=== PATIENT | male | born 1945 | race Caucasian/White ===

== ENCOUNTER 2018-05-04 11:14 | Emergency (ER) | payer MEDICARE, SELFPAY ==
[2018-05-04 11:18] VITALS: BP 138/68; PULSE 71; RESP 17; TEMP 36.9; O2SAT 95; BMI 31.0
--- NOTE | 2018-05-04 11:29 | RAD_ITS ---
STUDY: X-RAY CHEST REASON FOR EXAM: Male, 72 years old. Pain, cough TECHNIQUE: PA and lateral chest COMPARISON: None. FINDINGS: There are patchy airspace opacities throughout the left lower lung in a pattern most consistent with pneumonia without dense focal consolidation. There is minimal right lung base atelectasis. Mid to upper lungs clear. No effusion or pneumothorax. There is hyperlucency of the lungs and flattening of hemidiaphragms suggesting underlying COPD. Correlate smoking history. Normal cardiomediastinal silhouette, carlos and pleural margins. Median sternotomy. No acute osseous or upper abdominal process. RAD/Chest PA and Lateral IMPRESSION: No acute cardiopulmonary process. Electronically Signed: Og Fernandez, at 12:14 EDT Tel , Service support ,
--- NOTE | 2018-05-04 11:29 | EKG12_ITS ---
Test Reason : Blood Pressure : / mmHG Vent. Rate : 070 BPM Atrial Rate : 070 BPM P-R Int : 172 ms QRS Dur : 098 ms QT Int : 400 ms P-R-T Axes : 056 009 012 degrees QTc Int : 432 ms Sinus rhythm with occasional Premature ventricular complexes Inferior infarct , age undetermined , cannot be excluded Poor R wave progression Abnormal ECG Confirmed by ALEE HERNANDEZ, FRANCOIS ([id number]), web content editor ALONZO MALONEY ([id number]) on 05/07/2018 9:51:13 AM Referred By: FRED Confirmed By:FRANCOIS VICKERS MD
--- NOTE | 2018-05-04 11:40 | NURSING ---
no old ekgs
[2018-05-04] MEDS: 0.9% Normal Saline 1,000 ML 150 ML IV (11:59)
[2018-05-04 12:06] LABS: Absolute Neutrophil Count 8.2 X10^3/uL (2.0-7.7); Basophil# 0.05 X10^3/uL; Basophil% 0.4 % (0-1); Eosinophil# 0.45 X10^3/uL; Eosinophils% 3.6 % (0-5); Hemoglobin 16.2 g/dl (13.0-16.5); Lymphocyte % 22.9 % (19-41); Mean Corp Hgb Conc 33.8 g/gl (32-36); Mean Corpuscular Hgb 31.1 pg (27.0-32.0); Mean Corpuscular Volume 92.1 fL (80-94); Mean Platelet Vol. 9.6 fl (6.2-12.0); Monocyte# 1.05 X10^3/uL; Monocyte% 8.3 % (0-10); Neutrophil # 8.16 X10^3/uL (2.7-7.7); Neutrophil % 64.5 % (47-70); Platelet Count 267 K/mm3 (150-450); RBC Distribution Width CV 13.4 % (11.6-14.6); Red Blood Count 5.21 M/mm3 (4.6-6.2); White Blood Count 12.7 K/mm3 (4.4-11.0)
[2018-05-04 12:08] LABS: POSITIVE COUNT NO; POSITIVE DIFFERENTIAL NO; POSITIVE MORPHOLOGY NO
[2018-05-04 12:13] LABS: Anion Gap 6 (5-15); BUN 11 mg/dL (7-18); BUN/Creat Ratio 12.9 RATIO (10-20); Calcium,Total 9.1 mg/dL (8.5-10.1); Chloride 106 mmol/L (98-107); Creatinine, Serum 0.85 mg/dL (0.70-1.30); EST Glomerular Filtration Rate 93 mL/min (>60); Est Glom Filt Rate - Afr Amer 113 mL/min (>60); Estimated Creatinine Clearance 73.76 ml/min; Glucose 95 mg/dL (74-106); Potassium 4.2 mmol/L (3.5-5.1); Sodium Level 138 mmol/L (136-145)
[2018-05-04 12:14] LABS: D-Dimer Quantitative (DVT/PE) 1.31 FEU/ug/m (0.27-0.49)
--- NOTE | 2018-05-04 12:17 | CT_ITS ---
STUDY: CTA CHEST REASON FOR EXAM: Male, 72 years old. Cough with green mucus. Chest pain, CABG, hypertension, cholecystectomy. RADIATION DOSAGE (If Supplied By Facility): CTDIvol = ( 18.03 ) mGy, DLP = ( 651.17 ) mGycm TECHNIQUE: The examination was performed with the intravenous administration of 100 ml of Isovue 370 contrast material. Post-processing of the angiographic images was performed, with multiplanar reformation and 3D reconstruction. Individualized dose optimization techniques were used for this CT. COMPARISON: Chest x-ray same date. FINDINGS: On today's chest x-ray there appear to be mild infiltrates of the left lower lung superimposed upon underlying emphysema. Supraclavicular: No mass or lymphadenopathy. Normal thyroid. Body wall soft tissues: No acute process. Osseous structures: Median sternotomy. Scoliosis, spondylosis, no acute process. Upper abdomen: Multiple simple appearing hepatic cysts, the largest in segment 4 measuring approximately 3.4 cm, incompletely characterized. No acute upper abdominal process is evident. Mediastinum: Normal esophagus. Multiple small or borderline enlarged lymph nodes are present in the mediastinum and carlos. Largest left hilar lymph node about 1.6 in meters short axis. Largest right hilar lymph node proximally 1.3 cm short axis. Subcarinal 1.2 cm. Paratracheal 1.2 cm. Chronicity uncertain. Heart: Borderline/mild cardiomegaly. No pericardial effusion. Prominent three-vessel coronary calcifications. Median sternotomy and CABG. Remnant epicardial pacer wires. Aorta: Borderline aneurysmal ectasia of the ascending aorta and proximal arch up to 3.95 cm. Mild arch atherosclerosis with widely patent three-vessel cervical arch branching. Lungs: Panlobular emphysema. Centrilobular and paraseptal features combined. There is fibrosis at the lung bases with peripheral honeycombing, associated with traction bronchiectasis. This largely calculus for the density seen on the chest x-ray in the left lung base where the degree of fibrosis is greater than on the right. However there is also a small superimposed subsegmental focus of consolidation in the left lower lobe, lateral basilar along the major fissure. This focus of consolidation measures approximately 3.6 x 2.5 cm and is most suspicious for acute pneumonia superimposed upon the extensive chronic interstitial changes. CT/CTA Chest W/WO Contrast IMPRESSION: Emphysema. 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 Subsegmental consolidation in the left lower lobe is suspicious for acute pneumonia. Electronically Signed: Og Fernandez, at 14:52 EDT Tel , Service support ,
[2018-05-04] MEDS: DiphenhydrAMINE 50 MG/ML Syringe IV (13:08)
[2018-05-04] MEDS: MethylPREDNISolone 125 MG/2 ML Vial IV (13:11)
--- NOTE | 2018-05-04 15:19 | ED.DCSUM_ITS ---
- ER Visit Summary Date of Service: 05/04/18 Chief Complaint: [Cough and left-sided chest pain] History of Present Illness: The patient is a 72 M [presents the emergency department with cough for over a week. Patient states that he is bringing up some green thick phlegm. Patient denies any fevers. Patient also complains of a sharp stabbing pain in his left chest without any radiation. Patient complains of increased fatigue. Patient has had chills and sweats. He denies recent travel or surgery. Patient does have a history of coronary artery disease, hypertension, and high cholesterol.] Physical Examination: [HEENT-PERRLA, EOMI. Cranial nerves II through XII grossly intact. TMs clear. Mucous membranes moist. No adenopathy. Cardiovascular-regular rate and rhythm without murmur or ectopy Lungs-clear to auscultation, chest wall stable without crepitus or subcu emphysema. Patient does have some tenderness over left anterior chest wall that seems to reproduce his pain. Abdomen-normoactive bowel sounds, soft, nontender, no rebound or rigidity, no peritoneal signs. Extremities-intact ?4, normal range of motion, normal pulses, atraumatic] Test Results: [EKG obtained on arrival showed a sinus rhythm with a ventricular rate of 70 bpm with occasional PVCs. CBC with differential showed a white count of 12.7, hemoglobin 16, hematocrit 48, platelets 267. Chemistries were unremarkable. Troponin was less than 0.015. D-dimer was elevated 1.31. Chest x-ray showed nothing acute. CTA of the chest showed no evidence for PE patient however was noted to have chronic interstitial lung disease as well as subsegmental consolidation in the left lower lobe suspicious for acute pneumonia.] Emergency Department Course and Treatment: [Patient was treated with Levaquin p.o. I feel he can be managed as an outpatient given that he is not hypoxic or tachypneic. ] Treatment Plan: Referral to pulmonology on-call Dr. Silva. Patient will be started on Levaquin, Tessalon Perles, and albuterol MDI.] Disposition: [Discharged home in stable condition]. Patient advised to return if increasing shortness of breath or condition should worsen in any way. Impression: [Left lower lobe pneumonia] This note was generated with [employer] (Proprietary)ation software. It may contain incorrect words, spelling, and punctuation that were not noted in review of the chart prior to signing ED Disposition - Plan for ED Patient: Chief Complaint: Cough Referrals: Tati Medina MD [Primary Care Provider] -
--- NOTE | 2018-05-04 15:19 | ED.DEP ---
ED Disposition - Plan for ED Patient: Chief Complaint: Cough Instructions: ED Pneumonia Adult Prescriptions: Benzonatate [Tessalon Perle] 200 mg PO TID PRN PRN #20 cap PRN Reason: Cough Levofloxacin [Levaquin] 750 mg PO DAILY #7 tab Referrals: Tati Medina MD [Primary Care Provider] - Adryan Silva DO [STAFF PHYSICIAN] - 3-5 Days
[2018-05-04] MEDS: levoFLOXacin 750 MG Tablet PO (15:29)
[2018-05-04 15:34] VITALS: BP 126/81; PULSE 72; PULSE 74; RESP 18
== END 2018-05-04 15:41 | disposition home or self-care (01) ==
PROVIDERS: Emergency Provider Emergency Medicine; Family Provider Family Medicine; PCP Family Medicine
DX: J18.9 Pneumonia, unspecified organism (principal); I10 Essential (primary) hypertension; E78.00 Pure hypercholesterolemia, unspecified; I25.10 Atherosclerotic heart disease of native coronary artery without angina pectoris; Z95.1 Presence of aortocoronary bypass graft
CPT/HCPCS: 71046; 71275; 80048; 84484; 85025; 85379; 93005; 96361; 96374; 96375; 99285; J7030; Q9967

== ENCOUNTER → 2018-05-18 14:27 | Outpatient (CLI) | payer MEDICARE, SELFPAY ==
[2018-05-18 14:57] LABS: Erythrocyte Sedimentation Rate 23 mm/hr (0-20)
[2018-05-18 15:20] LABS: CRP, High Sensitivity Cardiac 7.62 mg/L
[2018-05-21 03:07] LABS: Cytoplasmic Ab (C-ANCA) <1:20 titer (Neg:<1:20)
[2018-05-21 10:55] LABS: CCP IgG Antibodies > 250 units (0-19); Perinuclear Ab (P-ANCA) <1:20 titer (Neg:<1:20)
[2018-05-21 11:06] LABS: ANTINUCLEAR ANTIBODIES DIRECT Negative (Negative)
== END ==
PROVIDERS: Family Provider Family Medicine; PCP Family Medicine; Visit Provider Internal Medicine Critical Care Medicine
DX: J84.10 Pulmonary fibrosis, unspecified (principal); J44.9 Chronic obstructive pulmonary disease, unspecified; I25.10 Atherosclerotic heart disease of native coronary artery without angina pectoris
CPT/HCPCS: 36415; 85652; 86038; 86141; 86200; 86225; 86235; 86256; 86431

== ENCOUNTER → 2018-06-04 12:04 | Outpatient (CLI) | payer MEDICARE, SELFPAY ==
[2018-06-04 12:35] VITALS: PULSE 64; PULSE 71; PULSE 72; PULSE 83; PULSE 86; PULSE 87; PULSE 88; PULSE 89; O2SAT 91; O2SAT 92; O2SAT 94; O2SAT 96
--- NOTE | 2018-06-04 13:24 | PCM.PSN.6M ---
PSN 6 Minute Walk Test - 6 Minute Walk Test 6 Minute Walk Test: 6 Minute Walk Test PSN:6-Minute Walk Test Start: 06/04/18 12:35 Freq: Status: Active Protocol: [id number].6MINW Document 06/04/18 12:35 [facility] (Rec: 06/04/18 12:37 [facility] [id number]) 6 Minute Walk Test Date Performed 06/04/18 Time Performed 12:15 Height 5 ft 8 in Weight: 203 lb Weight in Pounds 203.[address]: Waldo Hein Assistive device used: None Pre-test Oxygen Delivery Method Room Air Pulse Ox (%) 96 Pulse Rate (60-100 beats/min) 64 Dyspnea Krystal Scale (0-10) 3 1st minute Oxygen Delivery Method Room Air Pulse Ox (%) 92 Pulse Rate (60-100 beats/min) 72 Dyspnea Krystal Scale (0-10) 3 2nd minute Oxygen Delivery Method Room Air Pulse Ox (%) 92 Pulse Rate (60-100 beats/min) 83 Dyspnea Krystal Scale (0-10) 3 3rd minute Oxygen Delivery Method Room Air Pulse Ox (%) 91 Pulse Rate (60-100 beats/min) 86 Dyspnea Krystal Scale (0-10) 3 4th minute Oxygen Delivery Method Room Air Pulse Ox (%) 92 Pulse Rate (60-100 beats/min) 87 Dyspnea Krystal Scale (0-10) 3 5th minute Oxygen Delivery Method Room Air Pulse Ox (%) 92 Pulse Rate (60-100 beats/min) 88 Dyspnea Krystal Scale (0-10) 3 6th minute Oxygen Delivery Method Room Air Pulse Ox (%) 92 Pulse Rate (60-100 beats/min) 89 Dyspnea Krystal Scale (0-10) 3 Post-test Oxygen Delivery Method Room Air Pulse Ox (%) 94 Pulse Rate (60-100 beats/min) 71 Dyspnea Krystal Scale (0-10) 3 Full Laps Walked 17 Partial Lap, Number of Tiles Walked 35 Total Distance Walked (ft) 1038 - Interpretation Interpretation: The patient ambulated 1038 feet over the course of 6 minutes beginning on room air without assistive devices or breaks. Pretesting oxygen saturation was noted to be 96% on room air. With ambulation, the armand oxygen saturation was 91%. This represents a significant exertional oxygen desaturation, consistent with a pulmonary limitation to exercise tolerance. - Recommendations Recommendations: There is no indication for the use of supplemental oxygen at this time. However, close interval follow-up is recommended, given the degree of oxygen desaturation noted during this study.
== END ==
PROVIDERS: Family Provider Family Medicine; PCP Family Medicine; Visit Provider Internal Medicine Critical Care Medicine
DX: J84.10 Pulmonary fibrosis, unspecified (principal); J44.9 Chronic obstructive pulmonary disease, unspecified
CPT/HCPCS: 94618

== ENCOUNTER → 2018-06-16 13:06 | Outpatient (CLI) | payer MEDICARE, SELFPAY ==
--- NOTE | 2018-06-17 10:28 | PFT ---
INTRODUCTION: The patient is a 73-year-old male that presents for pulmonary function testing secondary to a diagnosis of COPD. Respiratory therapy reports good patient effort. Bronchodilators were used during testing. INTERPRETATION: Forced expiration spirometry demonstrates the presence of a moderate large airways obstructive ventilatory defect. There was no significant response to aerosolized bronchodilators, based upon strict ATS criteria. Spirograms are of good quality and do not plateau indicating slow emptying of the lungs. Body plethysmography was performed and reveals a decreased TLC to 4.6 L, 77% of predicted, indicative of a mild restrictive ventilatory defect. The remainder of the lung volumes are symmetrically reduced. Diffusing capacity by single breath CO is mildly reduced at 62% of predicted. IMPRESSION: These pulmonary function studies demonstrate the presence of an irreversible moderate mixed ventilatory defect with a symmetric reduction in diffusing capacity. There are no previous pulmonary function studies available for comparison.
== END ==
PROVIDERS: Family Provider Family Medicine; PCP Family Medicine; Visit Provider Internal Medicine Critical Care Medicine
DX: J84.10 Pulmonary fibrosis, unspecified (principal); J44.9 Chronic obstructive pulmonary disease, unspecified
CPT/HCPCS: 94060; 94726; 94729

== ENCOUNTER → 2018-08-20 13:38 | Outpatient (CLI) | payer MEDICARE, SELFPAY ==
--- NOTE | 2018-08-20 13:59 | RAD_ITS ---
STUDY: X-RAY CHEST REASON FOR EXAM: Male, 73 years old. Cough and fever. TECHNIQUE: PA and lateral views of the chest. COMPARISON: CT of the chest dated May 04, 2018. FINDINGS: Patient has had a sternotomy. There is hyperinflation of the lungs consistent with chronic obstructive lung disease (COPD). There is mixed interstitial and airspace opacities at the lung bases primarily. There may be more diffuse interstitial thickening in both lungs as well. There is no demonstrated pleural abnormality. There is borderline cardiomegaly. Normal mediastinum and carlos. Normal visualized pulmonary arteries. There is atherosclerotic calcification of the aortic arch with tortuosity. There is demineralization of the osseous structures. Normal visualized ribs, clavicles, and shoulders. There is no demonstrated abnormality of the visualized soft tissue structures of the upper abdomen. RAD/Chest PA and Lateral IMPRESSION: Patchy bilateral basilar interstitial and air space opacities presumably representing acute pneumonia. There is probable sequela of pulmonary fibrosis as well. Electronically Signed: Carmencita Barron MD at 5:38 EST , Service support ,
[2018-08-20 16:00] LABS: Absolute Lymphocyte Count 2.01 X10^3/ul (0.83-4.51); Absolute Neutrophil Count 13.3 X10^3/uL (2.0-7.7); Basophil# 0.08 X10^3/uL; Basophil% 0.5 % (0-1); Eosinophil# 0.28 X10^3/uL; Eosinophils% 1.6 % (0-5); Hematocrit 43.7 % (40-54); Hemoglobin 14.7 g/dl (13.0-16.5); Lymphocyte # 2.01 X10^3/ul (4.0); Lymphocyte % 11.6 % (19-41); Mean Corp Hgb Conc 33.6 g/gl (32-36); Mean Corpuscular Hgb 30.7 pg (27.0-32.0); Mean Corpuscular Volume 91.2 fL (80-94); Mean Platelet Vol. 10.4 fl (6.2-12.0); Monocyte# 1.53 X10^3/uL; Monocyte% 8.9 % (0-10); Neutrophil # 13.29 X10^3/uL (2.7-7.7); Neutrophil % 76.9 % (47-70); POSITIVE COUNT NO; POSITIVE DIFFERENTIAL YES; POSITIVE MORPHOLOGY NO; Platelet Count 410 K/mm3 (150-450); RBC Distribution Width CV 13.4 % (11.6-14.6); RBC Distribution Width SD 44.2 fl (35.1-43.9); Red Blood Count 4.79 M/mm3 (4.6-6.2); White Blood Count 17.3 K/mm3 (4.4-11.0)
[2018-08-20 16:01] LABS: Differential Indicated SCAN CRITERIA MET
[2018-08-20 16:28] LABS: Differential Comment SCANNED
[2018-08-20 16:48] LABS: Thyroid Stim Hormone (TSH) 2.05 uIU/mL (0.358-3.74)
== END ==
PROVIDERS: Family Provider Family Medicine; PCP Family Medicine; Referring Provider Family Medicine; Visit Provider Family Medicine
DX: R05 Cough (principal); R68.89 Other general symptoms and signs
CPT/HCPCS: 36415; 71046; 84443; 85025

== ENCOUNTER 2018-08-24 01:07 | Inpatient (IN) | payer MEDICARE, SELFPAY ==
[2018-08-24] VITALS (33 sets, daily range): BP systolic 105–138; BP diastolic 55–74; PULSE 80–110; RESP 12–32; TEMP 36.8–38.5; O2SAT 84–100; BMI 29.7; BMI 28.9
--- NOTE | 2018-08-24 01:19 | RAD_ITS ---
STUDY: X-RAY CHEST REASON FOR EXAM: Male, 73 years old. Shortness breath, cough and fever. TECHNIQUE: Single AP portable view of the chest. COMPARISON: August 20, [address] of the chest dated May 04, 2018.. FINDINGS: Patient has had a sternotomy. Cardiac monitoring leads are present. The lungs are expanded. There is heterogeneous airspace consolidation throughout the right lung and at the left lung base. There is reticulonodular interstitial thickening present in both lungs apparently related to known pulmonary fibrosis. There is no demonstrated pleural abnormality. There is borderline cardiomegaly. Normal mediastinum and carlos. There is prominence of the pulmonary hilar arteries without peripheral pulmonary vascular congestion. There is atherosclerotic calcification of the aortic arch with tortuosity. Normal visualized thoracic spine. Normal visualized ribs, clavicles, and shoulders. There is no demonstrated abnormality of the visualized soft tissue structures of the upper abdomen. RAD/Chest 1 View (Portable) IMPRESSION: Increasing right-sided airspace consolidation and left-sided airspace consolidation since previous study consistent with pneumonia. Electronically Signed: Carmencita Barron MD at 2:01 EST , Service support ,
--- NOTE | 2018-08-24 01:19 | EKG12_ITS ---
Test Reason : SOB Blood Pressure : / mmHG Vent. Rate : 108 BPM Atrial Rate : 108 BPM P-R Int : 152 ms QRS Dur : 094 ms QT Int : 344 ms P-R-T Axes : 048 016 -01 degrees QTc Int : 460 ms Sinus tachycardia with frequent Premature ventricular complexes Possible Left atrial enlargement Inferior infarct , age undetermined Abnormal ECG Confirmed by VINCENZO HERNANDEZ, MARIA DEL CARMEN ([id number]), associate entertainment editor ALONZO MALONEY ([id number]) on 08/26/2018 1:10:08 PM Referred By: Tati Medina Confirmed By:MARIA DEL CARMEN LOYA MD
[2018-08-24] MEDS: Ipratropium/Albuterol Sulfate 3 ML AMPUL.NEB INHALATION ×6 (01:32→23:30)
[2018-08-24] MEDS: 0.9% Normal Saline 1,000 ML 150 ML IV (01:33)
--- NOTE | 2018-08-24 01:34 | ED.VISSUMM ---
- ER Visit Summary Date of Service: 08/24/18 Chief Complaint: Shortness of breath, cough History of Present Illness: The patient is a 73 M progressive shortness of breath since April. Reports productive sputum, subjective fever, chills, sweats. History of COPD with no home oxygen. History of CA, CABG x3 in the past. States has chest discomfort with cough. No similar symptoms of CA. States saw his flow machine operator Angel Luis back in June. States there was abnormalities that referred him Dr. Sol. Workup is in process. Family states a positive M protein. No confirmed diagnosis at this time. However family states had multiple x-rays of his bones. Remote tobacco 20 years ago. Pulmonary fibrosis history. PCP placed him on a Z-Fredo 3 days ago, no improvement of symptoms. No nausea or vomiting or diarrhea. No urinary symptoms. Family states he is wheezing. Symptoms do help with aerosol treatments. Family states he has not had a CT scan of his chest. However, records note he did have a CT of the chest in April noting nodules in pneumonia at that time along with findings of his pulmonary fibrosis with bronchiolectasis. Reports did have an outpatient x-ray 3 days ago and reporting chronic changes. Physical Examination: General: Alert and oriented ?3, no acute distress HEENT: Normocephalic, atraumatic. Moist mucosa membranes Neck: supple, nontender. Cardiovascular: Regular tachycardic rate and rhythm, no murmurs Respiratory: Expiratory wheezing throughout, no accessory muscle use. Abdomen: Soft, nontender, nondistended Extremities: Nontender, no edema, pulses intact ?4 Neuro: no focal neurological deficits. Test Results: Sinus tachycardia rate of 108, no ST or T wave changes. PVCs noted. White count 17.6. Lactic acid 1.5. trop: negative. Chest x-ray: progressive pneumonia Emergency Department Course and Treatment: Patient expiratory wheezing, slight tachypnea, tachycardia, 84% on room air. Placed on oxygen, aerosol treatments were given. On oxygen his O2 is improved. Sepsis protocol initiated. Review patient's workup on the , noted chest x-ray reporting bibasilar infiltrates. And a white count of 17. He was started on Levaquin IV due to failing outpatient therapy. Repeat white count 17.6, lactate is 1.5. Reevaluation wheezing improving. O2 stable, blood pressure stable. Review of x-ray does have concerns of pneumonia. Will discuss with hospitalist for admission. Treatment Plan: [] Disposition: Admission Impression: 1. [facility] pneumonia 2. COPD exacerbation 3. Hypoxemia This note was generated with [employer] dictation software. It may contain incorrect words, spelling, and punctuation that were not noted in review of the chart prior to signing ED Disposition - Plan for ED Patient: Disposition: Acute Care Hospital [facility] Chief Complaint: Shortness of Breath Diagnosis: COPD (chronic obstructive pulmonary disease), Community acquired pneumonia, Hypoxemia Referrals: Tati Medina MD [Primary Care Provider] -
[2018-08-24 01:36] LABS: International Normalized Ratio 1.2
[2018-08-24 01:37] LABS: Absolute Lymphocyte Count 1.64 X10^3/ul (0.83-4.51); Absolute Neutrophil Count 14.4 X10^3/uL (2.0-7.7); Basophil# 0.08 X10^3/uL; Basophil% 0.5 % (0-1); Eosinophil# 0.15 X10^3/uL; Eosinophils% 0.9 % (0-5); Hematocrit 44.3 % (40-54); Hemoglobin 15.2 g/dl (13.0-16.5); Lymphocyte # 1.64 X10^3/ul (4.0); Lymphocyte % 9.3 % (19-41); Mean Corp Hgb Conc 34.3 g/gl (32-36); Mean Corpuscular Hgb 30.5 pg (27.0-32.0); Mean Corpuscular Volume 88.8 fL (80-94); Mean Platelet Vol. 9.6 fl (6.2-12.0); Monocyte# 1.18 X10^3/uL; Monocyte% 6.7 % (0-10); Neutrophil # 14.41 X10^3/uL (2.7-7.7); Neutrophil % 81.8 % (47-70); Platelet Count 469 K/mm3 (150-450); RBC Distribution Width CV 13.5 % (11.6-14.6); RBC Distribution Width SD 43.6 fl (35.1-43.9); Red Blood Count 4.99 M/mm3 (4.6-6.2); White Blood Count 17.6 K/mm3 (4.4-11.0)
--- NOTE | 2018-08-24 01:37 | ED.DCSUM_ITS ---
- ER Visit Summary Date of Service: 08/24/18 Chief Complaint: Shortness of breath, cough History of Present Illness: The patient is a 73 M progressive shortness of breath since April. Reports productive sputum, subjective fever, chills, sweats. History of COPD with no home oxygen. History of AL, CABG x3 in the past. States has chest discomfort with cough. No similar symptoms of AL. States saw his clinic supervisor Angel Luis back in June. States there was abnormalities that referred him Dr. Sol. Workup is in process. Family states a positive M protein. No confirmed diagnosis at this time. However family states had multiple x-rays of his bones. Remote tobacco 20 years ago. Pulmonary fibrosis history. PCP placed him on a Z-Fredo 3 days ago, no improvement of symptoms. No nausea or vomiting or diarrhea. No urinary symptoms. Family states he is wheezing. Symptoms do help with aerosol treatments. Family states he has not had a CT scan of his chest. However, records note he did have a CT of the chest in April noting nodules in pneumonia at that time along with findings of his pulmonary fibrosis with bronchiolectasis. Reports did have an outpatient x-ray 3 days ago and reporting chronic changes. Physical Examination: General: Alert and oriented ?3, no acute distress HEENT: Normocephalic, atraumatic. Moist mucosa membranes Neck: supple, nontender. Cardiovascular: Regular tachycardic rate and rhythm, no murmurs Respiratory: Expiratory wheezing throughout, no accessory muscle use. Abdomen: Soft, nontender, nondistended Extremities: Nontender, no edema, pulses intact ?4 Neuro: no focal neurological deficits. Test Results: Sinus tachycardia rate of 108, no ST or T wave changes. PVCs noted. White count 17.6. Lactic acid 1.5. trop: negative. Chest x-ray: progressive pneumonia Emergency Department Course and Treatment: Patient expiratory wheezing, slight tachypnea, tachycardia, 84% on room air. Placed on oxygen, aerosol treatments were given. On oxygen his O2 is improved. Sepsis protocol initiated. Review patient's workup on the , noted chest x-ray reporting bibasilar infiltrates. And a white count of 17. He was started on Levaquin IV due to failing outpatient therapy. Repeat white count 17.6, lactate is 1.5. Reevaluation wheezing improving. O2 stable, blood pressure stable. Review of x-ray does have concerns of pneumonia. Will discuss with hospitalist for admission. Treatment Plan: [] Disposition: Admission Impression: 1. [facility] pneumonia 2. COPD exacerbation 3. Hypoxemia This note was generated with [employer] dictation software. It may contain incorrect words, spelling, and punctuation that were not noted in review of the chart prior to signing ED Disposition - Plan for ED Patient: Disposition: Acute Care Hospital [facility] Chief Complaint: Shortness of Breath Diagnosis: COPD (chronic obstructive pulmonary disease), Community acquired pneumonia, Hypoxemia Referrals: Tati Medina MD [Primary Care Provider] -
[2018-08-24 01:44] LABS: POSITIVE COUNT NO; POSITIVE DIFFERENTIAL NO; POSITIVE MORPHOLOGY NO
[2018-08-24 01:48] LABS: Lactic Acid 1.5 mmol/L (0.4-2.0)
[2018-08-24 01:50] LABS: ALB/GLOB Ratio 0.5 RATIO (0.9-2.4); AST(SGOT) 27 U/L (15-37); Alanine Aminotransfer ALT/SGPT 27 U/L (16-61); Albumin, Serum 2.7 g/dL (3.2-5.0); Alkaline Phosphatase 92 U/L (45-117); Anion Gap 9 (5-15); BUN 9 mg/dL (7-18); BUN/Creat Ratio 10.4 RATIO (10-20); Calcium,Total 8.3 mg/dL (8.5-10.1); Chloride 100 mmol/L (98-107); Creatinine, Serum 0.86 mg/dL (0.70-1.30); EST Glomerular Filtration Rate 92 mL/min (>60); Est Glom Filt Rate - Afr Amer 111 mL/min (>60); Estimated Creatinine Clearance 74.22 ml/min; Globulin 5.4 g/dL (2.2-4.2); Glucose 118 mg/dL (74-106); Potassium 3.9 mmol/L (3.5-5.1); Protein, Total 8.1 g/dL (6.4-8.2); Sodium Level 132 mmol/L (136-145)
--- NOTE | 2018-08-24 01:51 | HP.PCM_ITS ---
Problem List (1) Community acquired pneumonia Status: Acute (2) COPD (chronic obstructive pulmonary disease) Status: Chronic Qualifiers: COPD type: emphysema Emphysema type: centrilobular Qualified Code(s): J43.2 - Centrilobular emphysema History of Present Illness Date of Admission: 08/24/18 Chief Complaint: shortness of breath The patient is a 73 year old M with a significant history of former tobacco abuse; CAD status post CABG; hypertension;HLD; COPD without home oxygen use who presented with progressively worsening shortness of breath that started about a week ago. Associated with his symptoms is productive cough of phlegm, yellowish and greenish sputum. His shortness of breath is the same at rest and with walk ing. Furthermore he has wheezes. Patient reports a temperature of 101 Fahrenheit while at home. He tried home inhalers without any real relief. The emergency department X-ray showed bilateral airspace disease. Emergency department doctor heard wheezing on examination. Patient was found to have elevated white count of 17.6. His white count on 08/20/2018 was 17.3. Patient was started on IV Levaquin. Reportedly, 4 days ago patient was started on outpatient Z-Fredo. Patient has 1 more dose of Z-Fredo left. However his symptoms continue to worsen on Z-Fredo. Emergency department doctor reported that patient respiratory rate was 30 and his oxygen percentage saturation was 84 on room air. Also he had tachycardia. Patient reports a complicated history of shortness of breath that started in Ju ly of this year. At that time he was diagnosed with pulmonary fibrosis and pneumonia. He saw his PCP who referred to Dr. Hein, field crop harvest contractor. Patient was was then referred to acid plant helper. Patient was then referred with Dr. Sol, oncologist. 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 Per patient he did a 24-hour urine studies. Patient reports that he did a bone scan. Patient reports being diagnosed with rheumatoid arthritis. Previous CT showed mediastinal lymphadenopathy. Past Medical History Past Medical History (Chronic Problems): Chronic Problems (Last Reviewed 08/24/18 @ 03:05 by Andrés Mane MD) History of OH (myocardial infarction) (Chronic) CAD (coronary artery disease) (Chronic) Pulmonary fibrosis (Chronic) COPD (chronic obstructive pulmonary disease) (Chronic) Medical History: Medical History (Last Reviewed 08/24/18 @ 03:05 by Andrés Mane MD) History of OH (myocardial infarction) (Chronic) I25.2 CAD (coronary artery disease) (Chronic) I25.10 Pulmonary fibrosis (Chronic) J84.10 COPD (chronic obstructive pulmonary disease) (Chronic) J44.9 Allergies amoxicillin [From Augmentin] Allergy (Verified 08/24/18 01:11) Other I GET SWEATY AND CRAZY. clavulanic acid [From Augmentin] Allergy (Verified 08/24/18 01:11) Other I GET SWEATY AND CRAZY. hydrocodone Allergy (Verified 08/24/18 01:11) Other I GET SWEATY AND CRAZY. Iodinated Contrast- Oral and IV Dye [DYEE] Allergy (Verified 08/24/18 01:11) Angioedema naproxen Allergy (Verified 08/24/18 01:11) Other I GET SWEATY AND CRAZY. prednisone Allergy (Verified 08/24/18 01:11) Other I GET SWEATY AND CRAZY. Home Medications: Ambulatory Orders Medication Instructions Recorded Amlodipine [Norvasc] 10 mg PO DAILY 05/04/18 Aspirin E.C. [Ecotrin] 81 mg PO DAILY@0800 05/04/18 Benzonatate [Tessalon Perle] 200 mg PO TID PRN PRN #20 cap 05/04/18 Cholecalciferol (Vitamin D3) 5,000 unit PO DAILY 05/04/18 [Vitamin D3] Hydroxyzine Pamoate 25 mg PO QHS PRN 05/04/18 L.acidoph,Paracasei, B.lactis 10 tab PO DAILY 05/04/18 [Probiotic] Metoprolol Tartrate 25 mg PO BID 05/04/18 Multivitamin [Daily Multiple 1 ea PO DAILY 05/04/18 Vitamin] Omeprazole 20 mg PO DAILY 05/04/18 fluticasone 100 mcg-vilanterol 25 1 inh INHALATION Q24H #60 ea 07/27/18 mcg/dose powder for inhalation albuterol sulfate HFA 90 2 puff INHALATION Q4H PRN #8.5 g 08/17/18 mcg/actuation aerosol inhaler budesonide-formoterol HFA 160 2 puff INHALATION BID #1 ea 08/17/18 mcg-4.5 mcg/actuation aerosol inhaler Surgical History: Surgical History (Last Reviewed 08/24/18 @ 03:05 by Andrés Mane MD) History of bilateral cataract extraction (Resolved) Z98.41, Z98.42 Status post trigger finger release (Resolved) Z98.890 History of cholecystectomy (Resolved) Z90.49 History of bilateral carpal tunnel release (Resolved) Z98.890 History of prostatectomy (Resolved) Z90.79 History of coronary artery bypass graft x 3 (Resolved) Z95.1 History of colonoscopy (Resolved) Z98.890 Lives: Spouse/ Significant Other Smoking Status: Former smoker Alcohol: Occasional - *Family History Maternal Family History: Family History (Last Reviewed 08/24/18 @ 03:06 by Andrés Mane MD) Father Myocardial infarction Mother Myocardial infarction Brother Lung cancer Daughter Colostomy in place Asthma Kidney disease Son Aneurysm Paternal Family History: Family History (Last Reviewed 08/24/18 @ 03:06 by Andrés Mane MD) Father Myocardial infarction Mother Myocardial infarction Brother Lung cancer Daughter Colostomy in place Asthma Kidney disease Son Aneurysm Review of Systems Constitutional: Reports: Fever. Denies: Chills, Weight Change HEENT: Denies: Head Aches, Sinus Congestion, Sinus Drainage Cardiovascular: Denies: Chest Pain, Palpitations Respiratory: Reports: Cough, Shortness of Breath, Shortness of breath at rest, Shortness of breath upon exertion, Sputum production Gastrointestinal: Denies: Abdominal Pain, Nausea, Vomiting Genitourinary: Denies: Dysuria Musculoskeletal: Denies: Joint Pain, Joint Tenderness Skin: Denies: Rash, Wounds Neurological: Denies: Numbness, Tingling, Focal weakness Psychiatric: Denies: Anxiety, Depression, Homicidal Ideations, Suicidal Ideations Hematologic/ Lymphatic: Denies: Easy Bruising, Easy Bleeding VTE Information - Inpt Only VTE Present on Admission: No VTE Mechan Device Prophylaxis: None VTE Pharm Prophylaxis ordered?: Yes Patient Problems: Active and Suspected Problems (Last Reviewed 08/24/18 @ 03:05 by Andrés Mane MD) Community acquired pneumonia (Acute) Hypoxemia (Acute) - Physical Exam General: Alert, Oriented x3, Cooperative HEENT: Atraumatic, PERRLA, EOMI, Normocephalic Neck: Supple, No JVD, Negative Carotid Bruits Lungs: Normal air movement, Rales - Mid to lower lung gallego bilateral, Tachypneic Cardiovascular: No murmurs, Tachycardic Abdomen: Bowel Sounds Present, Soft, Non Tender Extremities: No edema, Capillary Refill Less than 3 Seconds Skin: No rashes, No breakdown Musculoskeletal: No Tenderness to Palpation of Joints or Extremities Neurological: Neuro grossly intact Psych/Mental Status: Normal Affect, Appropriate Vital Signs Temp Pulse Resp BP Pulse Ox 99.5 F H 101 H 16 138/73 H 93 08/24/18 01:08 08/24/18 01:31 08/24/18 01:31 08/24/18 01:08 08/24/18 01:31 Oxygen Flow Rate (L/min) 3 Oxygen Delivery Method Nasal Cannula Weight: 91.5 kg Body Mass Index (BMI) 29.7 Laboratory Tests Past 24 Hrs 08/24/18 08/24/18 08/24/18 01:16 01:16 01:16 WBC 17.6 H RBC 4.99 Hgb 15.2 Hct 44.3 MCV 88.8 MCH 30.5 MCHC 34.3 RDW 13.5 RDW Differential 43.6 Plt Count 469 H MPV 9.6 Immature Gran % (Auto) 0.800 Neut % (Auto) 81.8 H Lymph % (Auto) 9.3 L Pitt % (Auto) 6.7 Eos % (Auto) 0.9 Baso % (Auto) 0.5 Absolute Neuts (auto) 14.4 H Absolute Lymphs (auto) 1.64 Total Counted Not Reportable PT 15.0 H INR 1.2 APTT 32.0 Sodium 132 L Potassium 3.9 Chloride 100 Carbon Dioxide 23.0 Anion Gap 9 BUN 9 Creatinine 0.86 Estim Creat Clear Calc 74.22 Est GFR (MDRD) Af Amer 111 Est GFR (MDRD) Non-Af 92 BUN/Creatinine Ratio 10.4 Glucose 118 H Lactic Acid Calcium 8.3 L Total Bilirubin 1.00 AST 27 ALT 27 Alkaline Phosphatase 92 Troponin I < 0.015 Total Protein 8.1 Albumin 2.7 L Globulin 5.4 H Albumin/Globulin Ratio 0.5 L 08/24/18 01:16 WBC RBC Hgb Hct MCV MCH MCHC RDW RDW Differential Plt Count MPV Immature Gran % (Auto) Neut % (Auto) Lymph % (Auto) Pitt % (Auto) Eos % (Auto) Baso % (Auto) Absolute Neuts (auto) Absolute Lymphs (auto) Total Counted PT INR APTT Sodium Potassium Chloride Carbon Dioxide Anion Gap BUN Creatinine Estim Creat Clear Calc Est GFR (MDRD) Af Amer Est GFR (MDRD) Non-Af BUN/Creatinine Ratio Glucose Lactic Acid 1.5 Calcium Total Bilirubin AST ALT Alkaline Phosphatase Troponin I Total Protein Albumin Globulin Albumin/Globulin Ratio Assessment/Plan All Active Problems (Last Reviewed 08/24/18 @ 03:05 by Andrés Mane MD) Community acquired pneumonia (Acute) Hypoxemia (Acute) History of bilateral cataract extraction (Resolved) Status post trigger finger release (Resolved) History of cholecystectomy (Resolved) History of bilateral carpal tunnel release (Resolved) History of prostatectomy (Resolved) History of coronary artery bypass graft x 3 (Resolved) History of colonoscopy (Resolved) The patient is a 73 year old M with a significant history of former tobacco abuse; CAD status post CABG; hypertension;HLD; COPD without home oxygen use who presented with progressively worsening shortness of breath that started in April of this year and further worsened in the past week. Acute hypoxemic respiratory failure. Independent review of chest x-ray confirmed increasing right-sided airspace disease and left-sided airspace disease. This could represent fluid infiltrate superimposed on baseline of pulmonary fibrosis. Review of a field crop harvest contractor notes on 07/27/2018 showed the patient has mixed ventilatory defects noted on pulmonary function testing. Review of records shows that CTA on 05/04/2018 depicted pulmonary fibrosis with components of peripheral honeycombing and traction bronchiectasis in a pattern suggesting UIP. At that time CTA also showed Subsegmental consolidation in the left lower lobe suspicious for acute pneumonia. Further patient had multiple mediastinal lymph adenopathy. Upon this admission, CURB 65 is 2. Multifactorial from bilateral pneumonia and COPD. Received Levaquin at the emergency department. Levaquin continued. Because of patient's history of COPD and a long course of pulmonary disease, steroid was discussed with patient. However patient stated that he goes crazy and has diaphoresis with steroid use. DuoNeb scheduled ordered. Albuterol as needed ordered. Inhaled corticosteroid continued. Incentives parameter and chest physiotherapy ordered. Strep pneumonia antigen and Legionella urine antigen ordered. Mycoplasma antibody ordered. Blood cultures and sputum cultures were ordered in the emergency department. Results are pending. Consider discussing case with Dr. Hein, field crop harvest contractor since patient is known to Dr. Hein. Placed on monitoring engineer because of tachycardia. Mucinex ordered. Home as needed Teson Samueles continued. M protein disease Patient reports that he had a scheduled appointment on 08/24/[address] Sol Patient to follow up outpatient. Hypertension At admission blood pressure was not within goal. Continue home metoprolol and amlodipine. Trend blood pressures and adjust blood pressure medication as necessary. CAD status post CABG Aspirin continued Metoprolol continued. GERD PPI continued DVT prophylaxis subcutaneous Lovenox ordered Code Visit Inpatient E&M: 97917 Init Hosp L3
[2018-08-24] MEDS: levoFLOXacin IV 750 MG/150 ML BAG 100 MG IV ×2 (02:05→21:17)
[2018-08-24 03:38] LABS: Bacteria 0 SEEN /hpf (None Seen); Mucous, Urine 0 SEEN /hpf (<or=2+); Squamous Epithelial Cells - UA 0 SEEN /hpf (0-5); White Blood Cells 0 SEEN /hpf (0-5)
[2018-08-24 03:40] LABS: Color, Urine Yellow (Yellow); Glucose, Dipstick Normal (Normal); Ketone-Dipstick Negative (Negative); Leukocyte Esterase-Dipstick Negative /ul (Negative); Nitrite-Dipstick Negative (Negative); Occult Blood-Urine 10 /ul (Negative); Protein-Dipstick 15 mg/dl (Negative); Urine Bilirubin Dipstick Negative (Negative); Urine Clarity Sl. Cloudy (Clear); Urine Urobilinogen Normal (Normal)
[2018-08-24] MEDS: Albuterol 2.5 MG/3 ML VIAL.NEB. INHALATION (04:02)
[2018-08-24 04:39] LABS: Red Blood Cells-Urine 0-5 SEEN /hpf (0-5)
[2018-08-24] MEDS: Budesonide Respules 0.5 MG/2 ML AMPUL.NEB. INHALATION ×2 (06:43→19:10)
[2018-08-24] MEDS: Aspirin E.C. 81 MG Tablet PO (08:50)
[2018-08-24] MEDS: Multivitamins,Therapeutic Tablet 1 TABLET PO (08:50)
[2018-08-24] MEDS: Metoprolol Tartrate 25 MG Tablet PO ×2 (08:51→21:16)
[2018-08-24] MEDS: Enoxaparin 40 MG/0.4 ML Syringe SC (08:51)
[2018-08-24] MEDS: guaiFENesin 1,200 MG Tablet 1200 MG PO ×2 (08:51→21:17)
[2018-08-24] MEDS: Pantoprazole Sodium 20 MG Tablet PO (08:52)
[2018-08-24] MEDS: amLODIPine 10 MG Tablet PO (08:52)
--- NOTE | 2018-08-24 09:56 | PCM.HOSP.N ---
Hospitalist Note The patient was admitted early childhood lead teacher today. Seen and examined. Talked to the patient and his daughter at the bedside. Patient further said shortness of breath never got better since April 2018 when he had pneumonia. Patient follows Dr. Hein as an outpatient. He was found to have mixed ventilatory defect on PFT. Previous chest CT shows emphysematous changes with lung fibrosis and traction bronchiectasis. Patient saw a interceptor operator for positive RF and anti-CCP antibody and was referred to Dr. Sol for positive M protein. Dr. Sol ordered blood work which patient is not aware of the results. Patient had tachycardia, tachypnea and hypoxia at the time of admission which is getting slight better but is still on 6 L of oxygen. This was discussed with dry plasterer helper Dr. Silva. He ordered HRCT chest. in ED, chest x-ray shows bilateral airspace consolidation consistent with pneumonia. Started on IV Levaquin. On bronchodilator. Urinary antigens are negative. Sputum culture pending. Blood cultures are pending.
--- NOTE | 2018-08-24 10:29 | CASEMGMT ---
KEYONNA VENEGAS assessment: Face to Face with pt for initial transition planning/care coordination assessment. KEYONNA VENEGAS introduced self and role at [facility], pt voices understanding and consents to assessment at this time. Pt is sitting up in bed in no distress at this time. Pt is A/O x4 at this time and answers all questions appropriately at this time. Pt's and daughter are at bedside during assessment. Care providers, pharmacy, and demographics verified at this time/updated at this time. PCP: Tati Medina Specialists: Angel Luis pulwilfrid; Ebenezer, onc; Suma, rheuma; Gina, cardio Preferred Pharmacy: [facility] [place] Insurance: AeR Prescription Benefit: AeR Living Will/HPOA: Pt states had LW/HPOA and states , Raquel Briceno, is HPOA. Pt aware that they are not no file at [facility] at this time. LNOK: Raquel Briceno, ; Mima Andrews, daughter Living Arrangements: Pt states lives with in bi-level home and states has had some recent difficulty with stairs at times. Pt states no concerns at home at this time. Transportation: Pt states drives self and states no transportation concerns at this time. DME/HHC: Pt states has a walker and tub bench, but does not use the walker currently. Pt states has had HHC in the past but unsure of which company and states no SNF in the past. Pt states would possibly like [facility] if home oxygen required at discharge as gets her DM supplies through them. This RN RUBI checked on [facility] website and they do not supply home oxygen, only cpap/bipap. Pt/ updated at this time, voice understanding. CM to follow for home oxygen need. Pt states no concerns with going home at time of discharge. Pt states is retired. Pt states does not smoke and rarely drinks ETOH. Pt states no further concerns/needs at this time. CM to follow for any further discharge planning/needs. Advised pt to ask for CM if any further questions/concerns/needs arise, voices understanding. Plan: [place] KEYONNA VENEGAS
--- NOTE | 2018-08-24 11:20 | CT_ITS ---
STUDY: CT CHEST WITHOUT CONTRAST REASON FOR EXAM: Male, 73 years old. History of bilateral pneumonia. RADIATION DOSAGE (If Supplied By Facility): CTDIvol = ( 19.49 ) mGy, DLP = ( 727.83 ) mGycm TECHNIQUE: Transaxial imaging was performed without the administration of intravenous contrast material. Multiplanar coronal and sagittal images were reformatted. Individualized dose optimization techniques were used for this CT. COMPARISON: Comparison is made with prior CT scan of thorax dated May 04, 2018 and prior chest radiograph done earlier in the day. FINDINGS: Bilateral axillary lymph nodes. The largest on the left side measures 2 cm. The largest on the right side measures 1.2 cm. There is evidence of groundglass appearance in the right upper lobe as well as in the right middle lobe and right lower lobe. There is evidence of interstitial scarring with bronchiectasis and multiple small cystic changes in the right hemithorax suggestive of a chronic interstitial pulmonary fibrosis. This has progressed as compared to prior study. There is also evidence of increased initial markings there is a complex and cystic changes in the left upper lobe as well as in the left lower lobe although this is to a lesser extent as compared to the left side. This is suggestive of progressive chronic interstitial fibrosis and end-stage lung. There is no demonstrated pleural abnormality. There are calcifications of the coronary arteries. There are multiple small lymph nodes within the mediastinum, which are normal in size and morphology most compatible with reactive lymph hyperplasia. Normal hilar regions. Normal unenhanced pulmonary arteries. There is atherosclerotic calcification of the aortic arch with tortuosity and elongation of the aortic arch and descending thoracic aorta. There are multi-level degenerative changes of the thoracic spine. Stable appearance of the hepatic cysts. CT/Chest without Contrast IMPRESSION: Changes compatible with a progressive pulmonary fibrosis with evidence of honeycombing and bronchiectasis. This is worse in the right hemithorax. Enlarged bilateral axillary lymph nodes. Electronically Signed: Joseph Sheriff MD at 12:53 EST Tel [phone], Service support ,
--- NOTE | 2018-08-24 11:21 | ECHOD_ITS ---
Reason For Study: DYSPNEA, SOB Procedure This was a 2D Doppler, Color Flow transthoracic echocardiogram. The study was technically difficult. Due to arrhythmia and patient's discomfort (fever/chills/dyspnea/SOB). Exam performed portable in patient room. Left Ventricle Normal LV size. Left ventricular systolic function is normal. The estimated ejection fraction is 60 %. Stage 1 diastolic dysfunction. No regional wall motion abnormalities noted. Right Ventricle Normal RV size. Normal systolic function. Atria The left atrium is mildly enlarged. Normal right atrium. Mitral Valve The mitral valve is structurally normal. No prolapse or stenosis seen. Tricuspid Valve Normal tricuspid valve. Mild to moderate (1-2+) tricuspid valve insufficiency. Pulmonary artery systolic pressure is 44 mmHg. Aortic Valve The aortic valve is not well visualized. Pulmonic Valve Normal pulmonic valve. Great Vessels Mildly dilated aortic root. The pulmonary artery is normal size. Normal inferior vena cava. Pericardium/Pleural No pericardial effusion. MMode/2D Measurements & Calculations LVIDd: 4.5 cm IVSd: 1.0 cm Ao root diam: 3.2 cm LVIDs: 2.8 cm LVPWd: 1.0 cm RVDd: 3.2 cm FS: 36.6 % LAV(MOD-bp): 76.0 ml LA A4 area: 23.1 cm2 LA dimension(2D): 4.4 cm LAV(MOD-bp) Indexed: 37.2 ml/m2 LAV(MOD-sp2): 74.2 ml LAV(MOD-sp4): 74.2 ml RA A4 area: 14.7 cm2 Time Measurements MV dec time: 0.15 sec Doppler Measurements & Calculations MV E max elie: 80.9 cm/sec Lat Peak E' Elie: 9.6 cm/sec Med Peak E' Elie: 9.3 cm/sec MV A max elie: 93.2 cm/sec E/E' lat: 8.5 E/E' med: 8.7 MV E/A: 0.87 Ao V2 max: 175.4 cm/sec LV V1 max: 105.7 cm/sec PA V2 max: 100.8 cm/sec Ao max P.3 mmHg LV V1 max P.5 mmHg TR max elie: 317.0 cm/sec TR max P.4 mmHg Interpretation Summary Normal LV size. Left ventricular systolic function is normal. The estimated ejection fraction is 60 %. Stage 1 diastolic dysfunction. Pulmonary artery systolic pressure is 44 mmHg. No cardiac source of emboli noted. There is no evidence of a mass or vegetation. This does not rule out endocarditis. Ordering Physician: Adryan Silva D.O. Referring Physician: Tati Medina Performed By: Nayeli Borja RDCS, RVT
--- NOTE | 2018-08-24 12:15 | PCM.CONS.GEN ---
Reason for Consult Date of Consultation: 08/24/18 Reason for Consultation: Pulmonary fibrosis History of Present Illness: The patient is a 73-year-old male, with a history as outlined below, who presented to the emergency department on August 24 with complaints of shortness of breath and productive cough. The patient has a history of an underlying irreversible moderate mixed ventilatory defect, for which he follows with Dr. Hein on an outpatient basis. The patient was last seen in the pulmonary medicine clinic on July 27, 2018, at which time, he was started on Breo. Previous chest CT from April 2018 revealed evidence of emphysematous changes along with subpleural reticular changes and focal areas of honeycombing. There was also evidence of traction bronchiectasis. 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 As part of his initial workup with Dr. Hein, and autoimmune panel was obtained and revealed a positive rheumatoid factor and anti-CCP antibody. Therefore, the patient was referred to rheumatology in [place]. That physician chief of pathology found findings concerning for an abnormal M protein and subsequently referred the patient to see Dr. Sol. I spoke with Dr. 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 The patient is yet to be started on any form of therapy for his underlying rheumatoid arthritis. He was evaluated by his primary care provider last week and started on azithromycin for presumptive pneumonia. However, the patient's symptoms continued to progress. On presentation to the emergency department, the patient was noted to be afebrile, mildly tachycardic and hemodynamically stable. He was, nevertheless, tachypneic and hypoxic. Laboratory evaluation revealed elevated white blood cell count to 17,000. Chemistry profile was largely unremarkable. Troponin was negative. A plain film chest x-ray was obtained and revealed bilateral interstitial airspace disease. The patient was subsequently started on antibiotics and scheduled bronchodilators. He was admitted to the progressive care unit for ongoing management. Past Medical History Past Medical History (Chronic Problems): Chronic Problems (Last Reviewed 08/24/18 @ 03:05 by Andrés Mane MD) History of ID (myocardial infarction) (Chronic) CAD (coronary artery disease) (Chronic) Pulmonary fibrosis (Chronic) COPD (chronic obstructive pulmonary disease) (Chronic) Medical History: Medical History (Last Reviewed 08/24/18 @ 03:05 by Andrés Mane MD) History of ID (myocardial infarction) (Chronic) I25.2 CAD (coronary artery disease) (Chronic) I25.10 Pulmonary fibrosis (Chronic) J84.10 COPD (chronic obstructive pulmonary disease) (Chronic) J44.9 Allergies amoxicillin [From Augmentin] Allergy (Verified 08/24/18 01:11) Other I GET SWEATY AND CRAZY. clavulanic acid [From Augmentin] Allergy (Verified 08/24/18 01:11) Other I GET SWEATY AND CRAZY. hydrocodone Allergy (Verified 08/24/18 01:11) Other I GET SWEATY AND CRAZY. Iodinated Contrast- Oral and IV Dye [DYEE] Allergy (Verified 08/24/18 01:11) Angioedema naproxen Allergy (Verified 08/24/18 01:11) Other I GET SWEATY AND CRAZY. prednisone Allergy (Verified 08/24/18 01:11) Other I GET SWEATY AND CRAZY. Home Medications: Ambulatory Orders Medication Instructions Recorded Amlodipine [Norvasc] 10 mg PO DAILY 05/04/18 Aspirin E.C. [Ecotrin] 81 mg PO DAILY@0800 05/04/18 Benzonatate [Tessalon Perle] 200 mg PO TID PRN PRN #20 cap 05/04/18 Cholecalciferol (Vitamin D3) 5,000 unit PO DAILY 05/04/18 [Vitamin D3] Hydroxyzine Pamoate 25 mg PO QHS PRN 05/04/18 L.acidoph,Paracasei, B.lactis 10 tab PO DAILY 05/04/18 [Probiotic] Metoprolol Tartrate 25 mg PO BID 05/04/18 Multivitamin [Daily Multiple 1 ea PO DAILY 05/04/18 Vitamin] Omeprazole 20 mg PO DAILY 05/04/18 fluticasone 100 mcg-vilanterol 25 1 inh INHALATION Q24H #60 ea 07/27/18 mcg/dose powder for inhalation albuterol sulfate HFA 90 2 puff INHALATION Q4H PRN #8.5 g 08/17/18 mcg/actuation aerosol inhaler budesonide-formoterol HFA 160 2 puff INHALATION BID #1 ea 08/17/18 mcg-4.5 mcg/actuation aerosol inhaler mometasone-formoterol HFA 200 2 puff INHALATION BID #13 g 08/24/18 mcg-5 mcg/actuation aerosol inhaler Surgical History: Surgical History (Last Reviewed 08/24/18 @ 03:05 by Andrés Mane MD) History of bilateral cataract extraction (Resolved) Z98.41, Z98.42 Status post trigger finger release (Resolved) Z98.890 History of cholecystectomy (Resolved) Z90.49 History of bilateral carpal tunnel release (Resolved) Z98.890 History of prostatectomy (Resolved) Z90.79 History of coronary artery bypass graft x 3 (Resolved) Z95.1 History of colonoscopy (Resolved) Z98.890 Lives: Spouse/ Significant Other Smoking Status: Former smoker Alcohol: Occasional - *Family History Maternal Family History: Family History (Last Reviewed 08/24/18 @ 03:06 by Andrés Mane MD) Father Myocardial infarction Mother Myocardial infarction Brother Lung cancer Daughter Colostomy in place Asthma Kidney disease Son Aneurysm Paternal Family History: Family History (Last Reviewed 08/24/18 @ 03:06 by Andrés Mane MD) Father Myocardial infarction Mother Myocardial infarction Brother Lung cancer Daughter Colostomy in place Asthma Kidney disease Son Aneurysm Review of Systems Constitutional: Denies: Chills, Fever Eyes: Denies: Blurred vision, Double vision HEENT: Denies: Head Aches, Sinus Congestion, Sinus Drainage Cardiovascular: Denies: Chest Pain, Palpitations Respiratory: Reports: Cough, Shortness of Breath, Sputum production, Wheezing Gastrointestinal: Denies: Abdominal Pain, Nausea, Vomiting Genitourinary: Denies: Dysuria Musculoskeletal: Denies: Joint Pain, Joint Tenderness Skin: Denies: Rash, Wounds Neurological: Denies: Numbness, Tingling, Focal weakness Psychiatric: Denies: Anxiety, Depression, Homicidal Ideations, Suicidal Ideations Hematologic/ Lymphatic: Denies: Easy Bruising, Easy Bleeding Patient Problems: Active and Suspected Problems (Last Reviewed 08/24/18 @ 03:05 by Andrés Mane MD) Community acquired pneumonia (Acute) Hypoxemia (Acute) Objective: The patient's most recent lab work, culture data and imaging studies have all been personally reviewed. Strep and urine Legionella antigens were both negative. Blood and sputum cultures are pending. - Physical Exam General: Alert, Cooperative, - - Sitting in bedside recliner. Family is present at the bedside. HEENT: Atraumatic, PERRLA, Normocephalic Oral: No Gingival or Mucosal Lesions/ Ulcerations Neck: Supple, No Nodes, Trachea Midline Lungs: No rhonchi, Rales, Short of Breath, Tachypneic, Wheezes Cardiovascular: Normal S1, Normal S2, No murmurs, Tachycardic Abdomen: Bowel Sounds Present, Soft, Non Tender, Non-Distended Extremities: No clubbing, No cyanosis, No edema Skin: No breakdown Musculoskeletal: No Tenderness to Palpation of Joints or Extremities Lymphatic: No Cervical, Supraclavicular, or Inguinal Adenopathy Neurological: Cranial nerves II-XII grossly intact, Neuro grossly intact Psych/Mental Status: Normal Affect, Appropriate Vital Signs Temp Pulse Resp BP Pulse Ox 36.8 C 102 H 16 113/73 94 08/24/18 09:18 08/24/18 10:59 08/24/18 10:52 08/24/18 09:18 08/24/18 09:18 Oxygen Flow Rate (L/min) 6 Oxygen Delivery Method Nasal Cannula Weight: 195 lb 15.855 oz Body Mass Index (BMI) 28.9 Intake and Output for Last 24 Hours 08/22/18 08/23/18 08/24/18 23:59 23:59 23:59 Intake Total 616.8 / 616.8 Balance 616.8 / 616.8 Microbiology Past 72 Hours 08/24/18 01:24 Gram Stain - Final Sputum, Expectorated/Coughed 08/24/18 03:16 Streptococcus pneumoniae Antigen (M - Final Urine, Clean Catch 08/24/18 03:16 Legionella Antigen - Final Urine, Clean Catch Laboratory Tests Past 24 Hrs 08/24/18 08/24/18 08/24/18 01:16 01:16 01:16 WBC 17.6 H RBC 4.99 Hgb 15.2 Hct 44.3 MCV 88.8 MCH 30.5 MCHC 34.3 RDW 13.5 RDW Differential 43.6 Plt Count 469 H MPV 9.6 Immature Gran % (Auto) 0.800 Neut % (Auto) 81.8 H Lymph % (Auto) 9.3 L [place] % (Auto) 6.7 Eos % (Auto) 0.9 Baso % (Auto) 0.5 Absolute Neuts (auto) 14.4 H Absolute Lymphs (auto) 1.64 Total Counted Not Reportable PT 15.0 H INR 1.2 APTT 32.0 Sodium 132 L Potassium 3.9 Chloride 100 Carbon Dioxide 23.0 Anion Gap 9 BUN 9 Creatinine 0.86 Estim Creat Clear Calc 74.22 Est GFR (MDRD) Af Amer 111 Est GFR (MDRD) Non-Af 92 BUN/Creatinine Ratio 10.4 Glucose 118 H Lactic Acid Calcium 8.3 L Total Bilirubin 1.00 AST 27 ALT 27 Alkaline Phosphatase 92 Troponin I < 0.015 Total Protein 8.1 Albumin 2.7 L Globulin 5.4 H Albumin/Globulin Ratio 0.5 L Urine Color Urine Clarity Urine pH Ur Specific Chunky Urine Protein Urine Glucose (UA) Urine Ketones Urine Occult Blood Urine Nitrite Urine Bilirubin Urine Urobilinogen Ur Leukocyte Esterase Urine RBC Urine WBC Ur Squamous Epith Cells Urine Bacteria Urine Mucus Mycoplasma pneumon IgG Mycoplasma pneumon IgM 08/24/18 08/24/18 08/24/18 01:16 03:16 05:27 WBC RBC Hgb Hct MCV MCH MCHC RDW RDW Differential Plt Count MPV Immature Gran % (Auto) Neut % (Auto) Lymph % (Auto) [place] % (Auto) Eos % (Auto) Baso % (Auto) Absolute Neuts (auto) Absolute Lymphs (auto) Total Counted PT INR APTT Sodium Potassium Chloride Carbon Dioxide Anion Gap BUN Creatinine Estim Creat Clear Calc Est GFR (MDRD) Af Amer Est GFR (MDRD) Non-Af BUN/Creatinine Ratio Glucose Lactic Acid 1.5 Calcium Total Bilirubin AST ALT Alkaline Phosphatase Troponin I Total Protein Albumin Globulin Albumin/Globulin Ratio Urine Color Yellow Urine Clarity Sl. Cloudy Urine pH 6.0 Ur Specific Chunky 1.010 Urine Protein 15 H Urine Glucose (UA) Normal Urine Ketones Negative Urine Occult Blood 10 H Urine Nitrite Negative Urine Bilirubin Negative Urine Urobilinogen Normal Ur Leukocyte Esterase Negative Urine RBC 0-5 SEEN Urine WBC 0 SEEN Ur Squamous Epith Cells 0 SEEN Urine Bacteria 0 SEEN Urine Mucus 0 SEEN Mycoplasma pneumon IgG Pending Mycoplasma pneumon IgM Pending Clinical Impression(s) from Imaging Studies Chest X-Ray 08/24/18 01:19 IMPRESSION: Increasing right-sided airspace consolidation and left-sided airspace consolidation since previous study consistent with pneumonia. Electronically Signed: Carmencita Barron MD at 2:01 EST , Service support , Assessment/Plan All Active Problems (Last Reviewed 08/24/18 @ 03:05 by Andrés Mane MD) Community acquired pneumonia (Acute) Hypoxemia (Acute) History of bilateral cataract extraction (Resolved) Status post trigger finger release (Resolved) History of cholecystectomy (Resolved) History of bilateral carpal tunnel release (Resolved) History of prostatectomy (Resolved) History of coronary artery bypass graft x 3 (Resolved) History of colonoscopy (Resolved) RECOMMENDATIONS: 1. Obtain high resolution chest CT. 2. Obtain surface echocardiogram. 3. Continue antibiotics, pending infectious workup. 4. Continue scheduled bronchodilators. 5. Aggressive bronchopulmonary hygiene. 6. Wean supplemental oxygen as tolerated. IMPRESSIONS: 1. Acute hypoxic respiratory failure/underlying mixed ventilatory defect with exacerbation/bronchiectasis Potentially multifactorial in etiology. While the patient did have what appeared to be the beginning stages of an interstitial lung process in April, would recommend obtaining a repeat high-resolution chest CT for further clarification, as the patient's plain film chest x-ray appears to show an evolving interstitial lung process. While I cannot discount the possibility for underlying pulmonary infectious process, the patient has known bronchiectasis which could be contributing to his current cough complaints. Regardless, I agree with continuing Levaquin for now. In addition to the aforementioned, would plan to obtain a surface echocardiogram for evaluation of any diastolic dysfunction and/or pulmonary hypertension. Pulmonary infectious workup is in process. Would also plan to check a respiratory viral panel. Clinical considerations for the patient's evolving interstitial lung process would be idiopathic pulmonary fibrosis versus fibrosing NSIP, given that the patient was recently identified as having rheumatoid arthritis. Wean supplemental oxygen as tolerated to maintain saturations at or above 90%. Continue scheduled bronchodilators as ordered. The patient reports an allergy to prednisone in the past. Therefore, we will hold off on initiation of systemic corticosteroids. 2. Recently diagnosed rheumatoid arthritis and MGUS The patient was referred to rheumatology from the office of Dr. Hein after he was noted to have a positive rheumatoid factor and anti-CCP antibody. However, the physician chief of pathology identified an abnormal M protein, which prompted a referral to Dr. Sol of hematology. I personally discussed the patient with Dr. 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 I do feel that it will be imperative that the patient return to the physician chief of pathology as quickly as possible to be started on therapy for his underlying rheumatologic disease, as this could be contributing to his current lung manifestations. 3. Prior history of tobacco abuse/hypertension/GERD Complicates care, management, recovery and prognosis. Continue home medications as indicated. This note was generated with [employer] dictation software. It may contain incorrect words, spelling, and punctuation that were not noted in checking the note before signing. Code Visit Inpatient E&M: 42368 Init Hosp L3
--- NOTE | 2018-08-24 12:22 | CON.PCM_ITS ---
Reason for Consult Date of Consultation: 08/24/18 Reason for Consultation: Pulmonary fibrosis History of Present Illness: The patient is a 73-year-old male, with a history as outlined below, who presented to the emergency department on August 24 with complaints of shortness of breath and productive cough. The patient has a history of an underlying irreversible moderate mixed ventilatory defect, for which he follows with Dr. Hein on an outpatient basis. The patient was last seen in the pulmonary medicine clinic on July 27, 2018, at which time, he was started on Breo. Previous chest CT from April 2018 revealed evidence of emphysematous changes along with subpleural reticular changes and focal areas of honeycombing. There was also evidence of traction bronchiectasis. 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 As part of his initial workup with Dr. Hein, and autoimmune panel was obtained and revealed a positive rheumatoid factor and anti-CCP antibody. Therefore, the patient was referred to rheumatology in [place]. That global chief creative officer found findings concerning for an abnormal M protein and subsequently referred the patient to see Dr. Sol. I spoke with Dr. 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 The patient is yet to be started on any form of therapy for his underlying rheumatoid arthritis. He was evaluated by his primary care provider last week and started on azithromycin for presumptive pneumonia. However, the patient's symptoms continued to progress. On presentation to the emergency department, the patient was noted to be afebrile, mildly tachycardic and hemodynamically stable. He was, nevertheless, tachypneic and hypoxic. Laboratory evaluation revealed elevated white blood cell count to 17,000. Chemistry profile was largely unremarkable. Troponin was negative. A plain film chest x-ray was obtained and revealed bilateral interstitial airspace disease. The patient was subsequently started on antibiotics and scheduled bronchodilators. He was admitted to the progressive care unit for ongoing management. Past Medical History Past Medical History (Chronic Problems): Chronic Problems (Last Reviewed 08/24/18 @ 03:05 by Andrés Mane MD) History of DE (myocardial infarction) (Chronic) CAD (coronary artery disease) (Chronic) Pulmonary fibrosis (Chronic) COPD (chronic obstructive pulmonary disease) (Chronic) Medical History: Medical History (Last Reviewed 08/24/18 @ 03:05 by Andrés Mane MD) History of DE (myocardial infarction) (Chronic) I25.2 CAD (coronary artery disease) (Chronic) I25.10 Pulmonary fibrosis (Chronic) J84.10 COPD (chronic obstructive pulmonary disease) (Chronic) J44.9 Allergies amoxicillin [From Augmentin] Allergy (Verified 08/24/18 01:11) Other I GET SWEATY AND CRAZY. clavulanic acid [From Augmentin] Allergy (Verified 08/24/18 01:11) Other I GET SWEATY AND CRAZY. hydrocodone Allergy (Verified 08/24/18 01:11) Other I GET SWEATY AND CRAZY. Iodinated Contrast- Oral and IV Dye [DYEE] Allergy (Verified 08/24/18 01:11) Angioedema naproxen Allergy (Verified 08/24/18 01:11) Other I GET SWEATY AND CRAZY. prednisone Allergy (Verified 08/24/18 01:11) Other I GET SWEATY AND CRAZY. Home Medications: Ambulatory Orders Medication Instructions Recorded Amlodipine [Norvasc] 10 mg PO DAILY 05/04/18 Aspirin E.C. [Ecotrin] 81 mg PO DAILY@0800 05/04/18 Benzonatate [Tessalon Perle] 200 mg PO TID PRN PRN #20 cap 05/04/18 Cholecalciferol (Vitamin D3) 5,000 unit PO DAILY 05/04/18 [Vitamin D3] Hydroxyzine Pamoate 25 mg PO QHS PRN 05/04/18 L.acidoph,Paracasei, B.lactis 10 tab PO DAILY 05/04/18 [Probiotic] Metoprolol Tartrate 25 mg PO BID 05/04/18 Multivitamin [Daily Multiple 1 ea PO DAILY 05/04/18 Vitamin] Omeprazole 20 mg PO DAILY 05/04/18 fluticasone 100 mcg-vilanterol 25 1 inh INHALATION Q24H #60 ea 07/27/18 mcg/dose powder for inhalation albuterol sulfate HFA 90 2 puff INHALATION Q4H PRN #8.5 g 08/17/18 mcg/actuation aerosol inhaler budesonide-formoterol HFA 160 2 puff INHALATION BID #1 ea 08/17/18 mcg-4.5 mcg/actuation aerosol inhaler mometasone-formoterol HFA 200 2 puff INHALATION BID #13 g 08/24/18 mcg-5 mcg/actuation aerosol inhaler Surgical History: Surgical History (Last Reviewed 08/24/18 @ 03:05 by Andrés Mane MD) History of bilateral cataract extraction (Resolved) Z98.41, Z98.42 Status post trigger finger release (Resolved) Z98.890 History of cholecystectomy (Resolved) Z90.49 History of bilateral carpal tunnel release (Resolved) Z98.890 History of prostatectomy (Resolved) Z90.79 History of coronary artery bypass graft x 3 (Resolved) Z95.1 History of colonoscopy (Resolved) Z98.890 Lives: Spouse/ Significant Other Smoking Status: Former smoker Alcohol: Occasional - *Family History Maternal Family History: Family History (Last Reviewed 08/24/18 @ 03:06 by Andrés Mane MD) Father Myocardial infarction Mother Myocardial infarction Brother Lung cancer Daughter Colostomy in place Asthma Kidney disease Son Aneurysm Paternal Family History: Family History (Last Reviewed 08/24/18 @ 03:06 by Andrés Mane MD) Father Myocardial infarction Mother Myocardial infarction Brother Lung cancer Daughter Colostomy in place Asthma Kidney disease Son Aneurysm Review of Systems Constitutional: Denies: Chills, Fever Eyes: Denies: Blurred vision, Double vision HEENT: Denies: Head Aches, Sinus Congestion, Sinus Drainage Cardiovascular: Denies: Chest Pain, Palpitations Respiratory: Reports: Cough, Shortness of Breath, Sputum production, Wheezing Gastrointestinal: Denies: Abdominal Pain, Nausea, Vomiting Genitourinary: Denies: Dysuria Musculoskeletal: Denies: Joint Pain, Joint Tenderness Skin: Denies: Rash, Wounds Neurological: Denies: Numbness, Tingling, Focal weakness Psychiatric: Denies: Anxiety, Depression, Homicidal Ideations, Suicidal Ideations Hematologic/ Lymphatic: Denies: Easy Bruising, Easy Bleeding Patient Problems: Active and Suspected Problems (Last Reviewed 08/24/18 @ 03:05 by Andrés Mane MD) Community acquired pneumonia (Acute) Hypoxemia (Acute) Objective: The patient's most recent lab work, culture data and imaging studies have all been personally reviewed. Strep and urine Legionella antigens were both negative. Blood and sputum cultures are pending. - Physical Exam General: Alert, Cooperative, - - Sitting in bedside recliner. Family is present at the bedside. HEENT: Atraumatic, PERRLA, Normocephalic Oral: No Gingival or Mucosal Lesions/ Ulcerations Neck: Supple, No Nodes, Trachea Midline Lungs: No rhonchi, Rales, Short of Breath, Tachypneic, Wheezes Cardiovascular: Normal S1, Normal S2, No murmurs, Tachycardic Abdomen: Bowel Sounds Present, Soft, Non Tender, Non-Distended Extremities: No clubbing, No cyanosis, No edema Skin: No breakdown Musculoskeletal: No Tenderness to Palpation of Joints or Extremities Lymphatic: No Cervical, Supraclavicular, or Inguinal Adenopathy Neurological: Cranial nerves II-XII grossly intact, Neuro grossly intact Psych/Mental Status: Normal Affect, Appropriate Vital Signs Temp Pulse Resp BP Pulse Ox 36.8 C 102 H 16 113/73 94 08/24/18 09:18 08/24/18 10:59 08/24/18 10:52 08/24/18 09:18 08/24/18 09:18 Oxygen Flow Rate (L/min) 6 Oxygen Delivery Method Nasal Cannula Weight: 195 lb 15.855 oz Body Mass Index (BMI) 28.9 Intake and Output for Last 24 Hours 08/22/18 08/23/18 08/24/18 23:59 23:59 23:59 Intake Total 616.8 / 616.8 Balance 616.8 / 616.8 Microbiology Past 72 Hours 08/24/18 01:24 Gram Stain - Final Sputum, Expectorated/Coughed 08/24/18 03:16 Streptococcus pneumoniae Antigen (M - Final Urine, Clean Catch 08/24/18 03:16 Legionella Antigen - Final Urine, Clean Catch Laboratory Tests Past 24 Hrs 08/24/18 08/24/18 08/24/18 01:16 01:16 01:16 WBC 17.6 H RBC 4.99 Hgb 15.2 Hct 44.3 MCV 88.8 MCH 30.5 MCHC 34.3 RDW 13.5 RDW Differential 43.6 Plt Count 469 H MPV 9.6 Immature Gran % (Auto) 0.800 Neut % (Auto) 81.8 H Lymph % (Auto) 9.3 L [place] % (Auto) 6.7 Eos % (Auto) 0.9 Baso % (Auto) 0.5 Absolute Neuts (auto) 14.4 H Absolute Lymphs (auto) 1.64 Total Counted Not Reportable PT 15.0 H INR 1.2 APTT 32.0 Sodium 132 L Potassium 3.9 Chloride 100 Carbon Dioxide 23.0 Anion Gap 9 BUN 9 Creatinine 0.86 Estim Creat Clear Calc 74.22 Est GFR (MDRD) Af Amer 111 Est GFR (MDRD) Non-Af 92 BUN/Creatinine Ratio 10.4 Glucose 118 H Lactic Acid Calcium 8.3 L Total Bilirubin 1.00 AST 27 ALT 27 Alkaline Phosphatase 92 Troponin I < 0.015 Total Protein 8.1 Albumin 2.7 L Globulin 5.4 H Albumin/Globulin Ratio 0.5 L Urine Color Urine Clarity Urine pH Ur Specific [place] Urine Protein Urine Glucose (UA) Urine Ketones Urine Occult Blood Urine Nitrite Urine Bilirubin Urine Urobilinogen Ur Leukocyte Esterase Urine RBC Urine WBC Ur Squamous Epith Cells Urine Bacteria Urine Mucus Mycoplasma pneumon IgG Mycoplasma pneumon IgM 08/24/18 08/24/18 08/24/18 01:16 03:16 05:27 WBC RBC Hgb Hct MCV MCH MCHC RDW RDW Differential Plt Count MPV Immature Gran % (Auto) Neut % (Auto) Lymph % (Auto) [place] % (Auto) Eos % (Auto) Baso % (Auto) Absolute Neuts (auto) Absolute Lymphs (auto) Total Counted PT INR APTT Sodium Potassium Chloride Carbon Dioxide Anion Gap BUN Creatinine Estim Creat Clear Calc Est GFR (MDRD) Af Amer Est GFR (MDRD) Non-Af BUN/Creatinine Ratio Glucose Lactic Acid 1.5 Calcium Total Bilirubin AST ALT Alkaline Phosphatase Troponin I Total Protein Albumin Globulin Albumin/Globulin Ratio Urine Color Yellow Urine Clarity Sl. Cloudy Urine pH 6.0 Ur Specific [place] 1.010 Urine Protein 15 H Urine Glucose (UA) Normal Urine Ketones Negative Urine Occult Blood 10 H Urine Nitrite Negative Urine Bilirubin Negative Urine Urobilinogen Normal Ur Leukocyte Esterase Negative Urine RBC 0-5 SEEN Urine WBC 0 SEEN Ur Squamous Epith Cells 0 SEEN Urine Bacteria 0 SEEN Urine Mucus 0 SEEN Mycoplasma pneumon IgG Pending Mycoplasma pneumon IgM Pending Clinical Impression(s) from Imaging Studies Chest X-Ray 08/24/18 01:19 IMPRESSION: Increasing right-sided airspace consolidation and left-sided airspace consolidation since previous study consistent with pneumonia. Electronically Signed: Carmencita Barron MD at 2:01 EST , Service support , Assessment/Plan All Active Problems (Last Reviewed 08/24/18 @ 03:05 by Andrés Mane MD) Community acquired pneumonia (Acute) Hypoxemia (Acute) History of bilateral cataract extraction (Resolved) Status post trigger finger release (Resolved) History of cholecystectomy (Resolved) History of bilateral carpal tunnel release (Resolved) History of prostatectomy (Resolved) History of coronary artery bypass graft x 3 (Resolved) History of colonoscopy (Resolved) RECOMMENDATIONS: 1. Obtain high resolution chest CT. 2. Obtain surface echocardiogram. 3. Continue antibiotics, pending infectious workup. 4. Continue scheduled bronchodilators. 5. Aggressive bronchopulmonary hygiene. 6. Wean supplemental oxygen as tolerated. IMPRESSIONS: 1. Acute hypoxic respiratory failure/underlying mixed ventilatory defect with exacerbation/bronchiectasis Potentially multifactorial in etiology. While the patient did have what appeared to be the beginning stages of an interstitial lung process in April, would recommend obtaining a repeat high-resolution chest CT for further clarification, as the patient's plain film chest x-ray appears to show an evolving interstitial lung process. While I cannot discount the possibility for underlying pulmonary infectious process, the patient has known bronchiectasis which could be contributing to his current cough complaints. Regardless, I agree with continuing Levaquin for now. In addition to the aforementioned, would plan to obtain a surface echocardiogram for evaluation of any diastolic dysfunction and/or pulmonary hypertension. Pulmonary infectious workup is in process. Would also plan to check a respiratory viral panel. Clinical considerations for the patient's evolving interstitial lung process would be idiopathic pulmonary fibrosis versus fibrosing NSIP, given that the patient was recently identified as having rheumatoid arthritis. Wean supplemental oxygen as tolerated to maintain saturations at or above 90%. Continue scheduled bronchodilators as ordered. The patient reports an allergy to prednisone in the past. Therefore, we will hold off on initiation of systemic corticosteroids. 2. Recently diagnosed rheumatoid arthritis and MGUS The patient was referred to rheumatology from the office of Dr. Hein after he was noted to have a positive rheumatoid factor and anti-CCP antibody. However, the global chief creative officer identified an abnormal M protein, which prompted a referral to Dr. Sol of hematology. I personally discussed the patient with Dr. 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 I do feel that it will be imperative that the patient return to the global chief creative officer as quickly as possible to be started on therapy for his underlying rheumatologic disease, as this could be contributing to his current lung manifestations. 3. Prior history of tobacco abuse/hypertension/GERD Complicates care, management, recovery and prognosis. Continue home medications as indicated. This note was generated with [employer] dictation software. It may contain incorrect words, spelling, and punctuation that were not noted in checking the note before signing. Code Visit Inpatient E&M: 20798 Init Hosp L3
[2018-08-24] MEDS: Acetaminophen 325 MG Tablet 650 MG PO (16:16)
--- NOTE | 2018-08-24 16:47 | PCM.RX.CS ---
Consult Pharmacy has been consulted to manage selected antiobiotic: Vancomycin Type of Consult: New start Suspected Infection: Pneumonia Labs: Sodium 132 mmol/L (136-145) L 08/24/18 01:16 Potassium 3.9 mmol/L (3.5-5.1) 08/24/18 01:16 Chloride 100 mmol/L (98-107) 08/24/18 01:16 Carbon Dioxide 23.0 mmol/L (21.0-32.0) 08/24/18 01:16 Anion Gap 9 (5-15) 08/24/18 01:16 BUN 9 mg/dL (7-18) 08/24/18 01:16 Creatinine 0.86 mg/dL (0.70-1.30) 08/24/18 01:16 Est GFR (MDRD) Af Amer 111 mL/min (>60) 08/24/18 01:16 Est GFR (MDRD) Non-Af 92 mL/min (>60) 08/24/18 01:16 BUN/Creatinine Ratio 10.4 RATIO (10-20) 08/24/18 01:16 Glucose 118 mg/dL (74-106) H 08/24/18 01:16 Microbiology: Microbiology 08/24/18 01:24 Sputum, Expectorated/Coughed Gram Stain - Final 08/24/18 03:16 Urine, Clean Catch Streptococcus pneumoniae Antigen (M - Final 08/24/18 03:16 Urine, Clean Catch Legionella Antigen - Final Weight used for dosin lb 15.855 oz Estimated Creatinine Clearance: 74.2 Goal Trough: 10-15 mcg/mL Pharmacy Plan for Drug Dosing: Pharmacy Service will continue to monitor and adjust dosing as required. Loading dose of 1250 mg (15mg/kg) Maintenance dose of 1000 mg q12h to obtain goal of 10-15 Trough will be obtained 08/26 at 0530 Follow-Up Labs: Trough Vancomycin Labs to be done on [date and time ordered]: 08/26 AT 0530
[2018-08-24] MEDS: 0.9% NaCl Peripheral Flush Adult/Peds IV (17:11)
[2018-08-24 17:16] LABS: Base Excess -1 mmol/L (-2 to +2); Bicarbonate 21.7 mmol/L (22-26); Blood Gas Specimen Type ART; O2 Delivery Device Nasal Can; PO2 50 mmHG (75-100); SITE L Radial; SO2 89 % (95-99); Time Given 1720; Total Carbon Dioxide 23 mmol/L; pCO2 26.8 mmHg (35-45); pH 7.52 (7.35-7.45)
[2018-08-24 20:07] LABS: M R Staph aureus DNA By PCR Negative (Negative); Probe Check PASS; Specimen Processing Control PASS
--- NOTE | 2018-08-24 22:18 | CPS ---
decreased Fio2 to 50%
--- NOTE | 2018-08-24 22:19 | CPS ---
decreased FIo2 to 60%
[2018-08-25] VITALS (36 sets, daily range): BP systolic 89–132; BP diastolic 63–85; PULSE 83–110; RESP 11–30; TEMP 36.4–37.7; O2SAT 89–95
[2018-08-25] MEDS: Ipratropium/Albuterol Sulfate 3 ML AMPUL.NEB INHALATION ×6 (02:40→22:22)
--- NOTE | 2018-08-25 02:42 | CPS ---
decreased Fio2 to 40%
[2018-08-25] MEDS: Vancomycin IV 1,000 MG/200 ML BAG 200 MG IV (05:55)
[2018-08-25] MEDS: 0.9% NaCl Peripheral Flush Adult/Peds IV ×4 (05:55→09:50)
[2018-08-25] MEDS: Budesonide Respules 0.5 MG/2 ML AMPUL.NEB. INHALATION (06:56)
--- NOTE | 2018-08-25 07:00 | PCM.PROGNOTE ---
Patient Problems: Active and Suspected Problems (Last Reviewed 08/24/18 @ 03:05 by Andrés Mane MD) Community acquired pneumonia (Acute) Hypoxemia (Acute) Subjective: The patient was seen and examined at the bedside this morning. Events from the last 24 hours have been reviewed. The patient was noted to be febrile with a T-max of 38.5 ?C yesterday afternoon. He remains hemodynamically stable nonetheless. The patient's oxygen requirement did increase over the course of last evening. The patient was started empirically on BiPAP 12/6 centimeters of water around 1700 hrs. last evening. He remains on continuous BiPAP as of this morning. Each time the patient is removed from noninvasive positive pressure ventilation he becomes more hypoxic. Of note, the patient does report an allergy to prednisone. However, upon my review, the patient's reaction to prednisone is listed as I get sweaty and crazy. This, of course, would be considered an adverse reaction and not a true allergy. In addition to the above, the patient did report to me that both of the combination LABA/ICS inhalers tried previously were cost prohibitive and included Breo and Symbicort. This information was conveyed to our nurse practitioner in the pulmonary medicine office. The patient was given additional samples of Symbicort and a prescription for Dulera, to be acquired upon his discharge from the hospital. I did call and speak personally with the patient's parachute line tier, Dr. Moise, at the [facility], who indicated that the patient was going to be started on medication for his underlying rheumatoid arthritis, once he was cleared by hematology. He was considering the initiation of Imuran. I updated the patient's parachute line tier on his current clinical state and he stated to call his office once the patient was stable for discharge and that he would arrange for an office follow-up visit in an expedited fashion. Objective: The patient's most recent lab work, culture data and imaging studies have all been personally reviewed. Previous chest CT from April 2018 revealed evidence of emphysematous changes along with subpleural reticular changes and focal areas of honeycombing. There was also evidence of traction bronchiectasis. A repeat CT chest (high-resolution) was obtained on August 24 and revealed evidence of significant reticular and groundglass changes bilaterally along with traction bronchiectasis and some subpleural honeycombing, suggestive of fibrotic lung disease. The changes noted on the patient's most recent CT chest had progressed significantly since his last imaging study in April 2018. Surface echocardiogram revealed evidence of stage I diastolic dysfunction with a pulmonary artery systolic pressure estimated to be 44 mmHg. - Physical Exam General: Alert, Cooperative, - - Currently tolerating BiPAP 12/6 centimeters of water. HEENT: Atraumatic, PERRLA, Normocephalic Oral: Dry Mucosa Neck: Supple, No Nodes, Trachea Midline Lungs: No rhonchi, No wheeze, Diminished, Rales, Tachypneic Cardiovascular: Normal S1, Normal S2, No murmurs, Tachycardic Abdomen: Bowel Sounds Present, Soft, Non Tender Extremities: No cyanosis, No edema, Clubbing Skin: No breakdown Musculoskeletal: No Tenderness to Palpation of Joints or Extremities Lymphatic: No Cervical, Supraclavicular, or Inguinal Adenopathy Neurological: Cranial nerves II-XII grossly intact, Neuro grossly intact Psych/Mental Status: Normal Affect, Appropriate Vital Signs Temp Pulse Resp BP Pulse Ox 36.9 C 100 29 H 111/66 91 08/25/18 06:00 08/25/18 06:57 08/25/18 06:57 08/25/18 06:00 08/25/18 06:57 Oxygen Flow Rate (L/min) 6 Oxygen Delivery Method Venturi Mask Weight: 197 lb 5.019 oz Body Mass Index (BMI) 28.9 Intake and Output for Last 24 Hours 08/23/18 08/24/18 08/25/18 23:59 23:59 23:59 Intake Total 1337.8 / 1337.8 Output Total 325 / 325 400 / 400 Balance 1012.8 / 1012.8 -400 / -400 Microbiology Past 72 Hours 08/24/18 01:24 Gram Stain - Final Sputum, Expectorated/Coughed 08/24/18 03:16 Streptococcus pneumoniae Antigen (M - Final Urine, Clean Catch 08/24/18 03:16 Legionella Antigen - Final Urine, Clean Catch Laboratory Tests Past 24 Hrs 08/24/18 08/24/18 08/25/18 17:04 17:12 06:12 Specimen Type ART Sample Site L Radial pH 7.52 H Bicarbonate Actual 21.7 L POC Total CO2 23 Base Excess -1 O2 Saturation 89 L ABG pCO2 26.8 L ABG pO2 50 L Spenser Test NA O2 Delivery Device Nasal Can Liter Flow 6.0 Blood Gas Notified Whom [facility] Blood Gas Notified Time 1720 B-Natriuretic Peptide Pending MRSA (PCR) Negative Clinical Impression(s) from Imaging Studies Chest X-Ray 08/24/18 01:19 IMPRESSION: Increasing right-sided airspace consolidation and left-sided airspace consolidation since previous study consistent with pneumonia. Electronically Signed: Carmencita Barron MD at 2:01 EST , Service support , Chest CT 08/24/18 11:20 IMPRESSION: Changes compatible with a progressive pulmonary fibrosis with evidence of honeycombing and bronchiectasis. This is worse in the right hemithorax. Enlarged bilateral axillary lymph nodes. Electronically Signed: Joseph Sheriff MD at 12:53 EST Tel [phone], Service support , Medical Necessity - Tobacco Use Smoking Status: Former smoker Assessment/Plan All Active Problems (Last Reviewed 08/24/18 @ 03:05 by Andrés Mane MD) Community acquired pneumonia (Acute) Hypoxemia (Acute) History of bilateral cataract extraction (Resolved) Status post trigger finger release (Resolved) History of cholecystectomy (Resolved) History of bilateral carpal tunnel release (Resolved) History of prostatectomy (Resolved) History of coronary artery bypass graft x 3 (Resolved) History of colonoscopy (Resolved) RECOMMENDATIONS: 1. Transfer patient to ICU, given tenuous respiratory status. 2. Continue BiPAP 12/6 as tolerated by the patient. Wean as tolerated. 3. Start IV Solu-Medrol 40 mg every 6 hours. 4. Start IV Lasix 20 mg twice daily. 5. We will reach out to the patient's parachute line tier to discuss further treatment goals. 6. Continue antibiotics along with scheduled bronchodilators. Recommend discontinuation of Levaquin with transition to Zosyn. IMPRESSIONS: 1. Acute hypoxic respiratory failure/underlying mixed ventilatory defect with exacerbation/bronchiectasis Likely multifactorial in etiology. While the patient did have what appeared to be the beginning stages of an interstitial lung process in April, a high resolution chest CT obtained during this hospitalization revealed significant interval worsening in the patient's fibrotic interstitial lung disease. While I cannot discount the possibility for underlying pulmonary infectious process, the patient has known bronchiectasis which could be contributing to his current cough complaints. In addition, a surface echocardiogram did reveal evidence of diastolic dysfunction and pulmonary hypertension. My clinical concern is that the patient's evolving interstitial lung process could be the consequence of idiopathic pulmonary fibrosis versus fibrosing NSIP, given that the patient was recently identified as having rheumatoid arthritis. Therefore, I am going to start the patient empirically on IV steroids. He will be continued on antibiotics, pending a pulmonary infectious workup. BiPAP will be continued and weaned as tolerated. Goal to maintain an oxygen saturation at or above 88%. Continue scheduled bronchodilators as ordered. 2. Heart failure with preserved ejection fraction/pulmonary hypertension The patient's pulmonary hypertension is most likely the consequence of his underlying pulmonary process coupled with hypoxia. Continue current supportive measures as noted above. The patient will be started on low-dose Lasix today as well. 3. Recently diagnosed rheumatoid arthritis and MGUS The patient was referred to rheumatology from the office of Dr. Hein after he was noted to have a positive rheumatoid factor and anti-CCP antibody. However, the parachute line tier identified an abnormal M protein, which prompted a referral to Dr. Sol of hematology. I personally discussed the patient with Dr. 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 I do feel that it will be imperative that the patient return to the parachute line tier as quickly as possible to be started on therapy for his underlying rheumatologic disease, as this could be contributing to his current lung manifestations. I did call and speak with the patient's parachute line tier, Dr. Moise, at the [facility] ([phone]), who indicated that it was his intention to start the patient on a medication like Imuran, once he was cleared by hematology. We will plan to call the patient's parachute line tier office once the patient has been medically stabilized for discharge to set up an expedited follow-up office visit. He is currently scheduled for a follow-up visit on October 12. 4. Prior history of tobacco abuse/hypertension/GERD Complicates care, management, recovery and prognosis. Continue home medications as indicated. TIME: 45 minutes of critical care time, independent of procedures, was spent addressing the patient's acute hypoxic respiratory failure, COPD/bronchiectasis with exacerbation, heart failure with preserved ejection fraction, pulmonary hypertension, rheumatoid arthritis, MGUS, review of all data and collaboration with the care team. ([id number]) Code Visit 9xxxx: [id number] Critical care first hour
--- NOTE | 2018-08-25 07:05 | PN_ITS ---
Patient Problems: Active and Suspected Problems (Last Reviewed 08/24/18 @ 03:05 by Andrés Mane MD) Community acquired pneumonia (Acute) Hypoxemia (Acute) Subjective: The patient was seen and examined at the bedside this morning. Events from the last 24 hours have been reviewed. The patient was noted to be febrile with a T-max of 38.5 ?C yesterday afternoon. He remains hemodynamically stable nonetheless. The patient's oxygen requirement did increase over the course of last evening. The patient was started empirically on BiPAP 12/6 centimeters of water around 1700 hrs. last evening. He remains on continuous BiPAP as of this morning. Each time the patient is removed from noninvasive positive pressure ventilation he becomes more hypoxic. Of note, the patient does report an allergy to prednisone. However, upon my review, the patient's reaction to prednisone is listed as I get sweaty and crazy. This, of course, would be considered an adverse reaction and not a true allergy. In addition to the above, the patient did report to me that both of the combination LABA/ICS inhalers tried previously were cost prohibitive and included Breo and Symbicort. This information was conveyed to our nurse practitioner in the pulmonary medicine office. The patient was given additional samples of Symbicort and a prescription for Dulera, to be acquired upon his discharge from the hospital. I did call and speak personally with the patient's vp medical, Dr. Moise, at the [facility], who indicated that the patient was going to be started on medication for his underlying rheumatoid arthritis, once he was cleared by hematology. He was considering the initiation of Imuran. I updated the patient's vp medical on his current clinical state and he stated to call his office once the patient was stable for discharge and that he would arrange for an office follow-up visit in an expedited fashion. Objective: The patient's most recent lab work, culture data and imaging studies have all been personally reviewed. Previous chest CT from April 2018 revealed evidence of emphysematous changes along with subpleural reticular changes and focal areas of honeycombing. There was also evidence of traction bronchiectasis. A repeat CT chest (high-resolution) was obtained on August 24 and revealed evidence of significant reticular and groundglass changes bilaterally along with traction bronchiectasis and some subpleural honeycombing, suggestive of fibrotic lung disease. The changes noted on the patient's most recent CT chest had progressed significantly since his last imaging study in April 2018. Surface echocardiogram revealed evidence of stage I diastolic dysfunction with a pulmonary artery systolic pressure estimated to be 44 mmHg. - Physical Exam General: Alert, Cooperative, - - Currently tolerating BiPAP 12/6 centimeters of water. HEENT: Atraumatic, PERRLA, Normocephalic Oral: Dry Mucosa Neck: Supple, No Nodes, Trachea Midline Lungs: No rhonchi, No wheeze, Diminished, Rales, Tachypneic Cardiovascular: Normal S1, Normal S2, No murmurs, Tachycardic Abdomen: Bowel Sounds Present, Soft, Non Tender Extremities: No cyanosis, No edema, Clubbing Skin: No breakdown Musculoskeletal: No Tenderness to Palpation of Joints or Extremities Lymphatic: No Cervical, Supraclavicular, or Inguinal Adenopathy Neurological: Cranial nerves II-XII grossly intact, Neuro grossly intact Psych/Mental Status: Normal Affect, Appropriate Vital Signs Temp Pulse Resp BP Pulse Ox 36.9 C 100 29 H 111/66 91 08/25/18 06:00 08/25/18 06:57 08/25/18 06:57 08/25/18 06:00 08/25/18 06:57 Oxygen Flow Rate (L/min) 6 Oxygen Delivery Method Venturi Mask Weight: 197 lb 5.019 oz Body Mass Index (BMI) 28.9 Intake and Output for Last 24 Hours 08/23/18 08/24/18 08/25/18 23:59 23:59 23:59 Intake Total 1337.8 / 1337.8 Output Total 325 / 325 400 / 400 Balance 1012.8 / 1012.8 -400 / -400 Microbiology Past 72 Hours 08/24/18 01:24 Gram Stain - Final Sputum, Expectorated/Coughed 08/24/18 03:16 Streptococcus pneumoniae Antigen (M - Final Urine, Clean Catch 08/24/18 03:16 Legionella Antigen - Final Urine, Clean Catch Laboratory Tests Past 24 Hrs 08/24/18 08/24/18 08/25/18 17:04 17:12 06:12 Specimen Type ART Sample Site L Radial pH 7.52 H Bicarbonate Actual 21.7 L POC Total CO2 23 Base Excess -1 O2 Saturation 89 L ABG pCO2 26.8 L ABG pO2 50 L Spenser Test NA O2 Delivery Device Nasal Can Liter Flow 6.0 Blood Gas Notified Whom [facility] Blood Gas Notified Time 1720 B-Natriuretic Peptide Pending MRSA (PCR) Negative Clinical Impression(s) from Imaging Studies Chest X-Ray 08/24/18 01:19 IMPRESSION: Increasing right-sided airspace consolidation and left-sided airspace consolidation since previous study consistent with pneumonia. Electronically Signed: Carmencita Barron MD at 2:01 EST , Service support , Chest CT 08/24/18 11:20 IMPRESSION: Changes compatible with a progressive pulmonary fibrosis with evidence of honeycombing and bronchiectasis. This is worse in the right hemithorax. Enlarged bilateral axillary lymph nodes. Electronically Signed: Joseph Sheriff MD at 12:53 EST Tel [phone], Service support , Medical Necessity - Tobacco Use Smoking Status: Former smoker Assessment/Plan All Active Problems (Last Reviewed 08/24/18 @ 03:05 by Andrés Mane MD) Community acquired pneumonia (Acute) Hypoxemia (Acute) History of bilateral cataract extraction (Resolved) Status post trigger finger release (Resolved) History of cholecystectomy (Resolved) History of bilateral carpal tunnel release (Resolved) History of prostatectomy (Resolved) History of coronary artery bypass graft x 3 (Resolved) History of colonoscopy (Resolved) RECOMMENDATIONS: 1. Transfer patient to ICU, given tenuous respiratory status. 2. Continue BiPAP 12/6 as tolerated by the patient. Wean as tolerated. 3. Start IV Solu-Medrol 40 mg every 6 hours. 4. Start IV Lasix 20 mg twice daily. 5. We will reach out to the patient's vp medical to discuss further treatment goals. 6. Continue antibiotics along with scheduled bronchodilators. Recommend discontinuation of Levaquin with transition to Zosyn. IMPRESSIONS: 1. Acute hypoxic respiratory failure/underlying mixed ventilatory defect with exacerbation/bronchiectasis Likely multifactorial in etiology. While the patient did have what appeared to be the beginning stages of an interstitial lung process in April, a high resolution chest CT obtained during this hospitalization revealed significant interval worsening in the patient's fibrotic interstitial lung disease. While I cannot discount the possibility for underlying pulmonary infectious process, the patient has known bronchiectasis which could be contributing to his current cough complaints. In addition, a surface echocardiogram did reveal evidence of diastolic dysfunction and pulmonary hypertension. My clinical concern is that the patient's evolving interstitial lung process could be the consequence of idiopathic pulmonary fibrosis versus fibrosing NSIP, given that the patient was recently identified as having rheumatoid arthritis. Therefore, I am going to start the patient empirically on IV steroids. He will be continued on antibiotics, pending a pulmonary infectious workup. BiPAP will be continued and weaned as tolerated. Goal to maintain an oxygen saturation at or above 88%. Continue scheduled bronchodilators as ordered. 2. Heart failure with preserved ejection fraction/pulmonary hypertension The patient's pulmonary hypertension is most likely the consequence of his underlying pulmonary process coupled with hypoxia. Continue current supportive measures as noted above. The patient will be started on low-dose Lasix today as well. 3. Recently diagnosed rheumatoid arthritis and MGUS The patient was referred to rheumatology from the office of Dr. Hein after he was noted to have a positive rheumatoid factor and anti-CCP antibody. However, the vp medical identified an abnormal M protein, which prompted a referral to Dr. Sol of hematology. I personally discussed the patient with Dr. 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 I do feel that it will be imperative that the patient return to the vp medical as quickly as possible to be started on therapy for his underlying rheumatologic disease, as this could be contributing to his current lung manifestations. I did call and speak with the patient's vp medical, Dr. Moise, at the [facility] ([phone]), who indicated that it was his intention to start the patient on a medication like Imuran, once he was cleared by hematology. We will plan to call the patient's vp medical office once the patient has been medically stabilized for discharge to set up an expedited follow-up office visit. He is currently scheduled for a follow-up visit on October 12. 4. Prior history of tobacco abuse/hypertension/GERD Complicates care, management, recovery and prognosis. Continue home medications as indicated. TIME: 45 minutes of critical care time, independent of procedures, was spent addressing the patient's acute hypoxic respiratory failure, COPD/bronchiectasis with exacerbation, heart failure with preserved ejection fraction, pulmonary hy pertension, rheumatoid arthritis, MGUS, review of all data and collaboration with the care team. ([id number]) Code Visit 9xxxx: [id number] Critical care first hour
--- NOTE | 2018-08-25 08:00 | NURSING ---
In ICU 4 per bed from PCU, [employer] in attendance
[2018-08-25 08:19] LABS: BNP,B-Type NATRIURETIC PEPTIDE 177.8 pg/mL (0-100)
--- NOTE | 2018-08-25 08:33 | PN_ITS ---
Patient Problems: Active and Suspected Problems (Last Reviewed 08/24/18 @ 03:05 by Andrés Mane MD) Community acquired pneumonia (Acute) Hypoxemia (Acute) Subjective: Patient had temperature 101.3?F about 4 PM as they mentioned in my yesterday's note. After that patient had a low-grade temperature 99.9?F manager cardiac cath but currently afebrile. Patient was put on BiPAP yesterday and helped and tachypnea and hypoxia and get short of breath out of BiPAP. Patient was transferred to ICU in the morning today. Currently on 40% FiO2, respiratory rate 22-26/min on BiPAP. Vitals/I&O's: Vital Signs Temp Pulse Resp BP Pulse Ox 98.5 F 98 29 H 111/66 91 08/25/18 06:00 08/25/18 07:11 08/25/18 06:57 08/25/18 06:00 08/25/18 06:57 Oxygen Flow Rate (L/min) 6 Oxygen Delivery Method Venturi Mask Weight: 197 lb 5.019 oz Body Mass Index (BMI) 28.9 Intake and Output for Last 24 Hours 08/23/18 08/24/18 08/25/18 23:59 23:59 23:59 Intake Total 1337.8 / 1337.8 Output Total 325 / 325 400 / 400 Balance 1012.8 / 1012.8 -400 / -400 General: Alert, Oriented x3, Cooperative HEENT: Atraumatic, PERRLA, EOMI, Normocephalic Neck: Supple, No JVD, Negative Carotid Bruits Lungs: Diminished, Rales - Coarse rales present in both lungs diffuse, Rhonchi, Short of Breath Cardiovascular: Regular rate, Regular Rhythm, Normal S1, Normal S2, No murmurs Abdomen: Bowel Sounds Present, Soft, Non Tender, Non-Distended Extremities: No edema, Capillary Refill Less than 3 Seconds Skin: No rashes, No breakdown Musculoskeletal: No Tenderness to Palpation of Joints or Extremities, Arthritic Changes, Muscle Wasting Neurological: Cranial nerves II-XII grossly intact, Neuro grossly intact Psych/Mental Status: Normal Affect, Appropriate Microbiology Past 72 Hours 08/24/18 01:24 Sputum, Expectorated/Coughed Gram Stain - Final 08/24/18 03:16 Urine, Clean Catch Streptococcus pneumoniae Antigen (M - Final 08/24/18 03:16 Urine, Clean Catch Legionella Antigen - Final Laboratory Results 08/24/18 17:04: MRSA (PCR) Negative 08/24/18 17:12: Specimen Type ART, Sample Site L Radial, pH 7.52 H, Bicarbonate Actual 21.7 L, POC Total CO2 23, Base Excess -1, O2 Saturation 89 L, ABG pCO2 26.8 L, ABG pO2 50 L, Spenser Test NA, O2 Delivery Device Nasal Can, Liter Flow 6.0, Blood Gas Notified Whom [facility] , Blood Gas Notified Time 1720 08/25/18 06:12: B-Natriuretic Peptide 177.8 H Current Medications Acetaminophen (Tylenol) 650 mg PO Q4H PRN PRN PRN Reason: FEVER Last Admin: 08/24/18 16:16 Dose: 650 mg Albuterol Sulfate (Ventolin Aerosols) 2.5 mg INHALATION Q2H PRN PRN PRN Reason: SHORTNESS OF BREATH Last Admin: 08/24/18 04:02 Dose: 2.5 mg Albuterol/Ipratropium (Duoneb) 3 ml INHALATION Q4H.RT [facility] Last Admin: 08/25/18 06:56 Dose: 3 ml Amlodipine Besylate (Norvasc) 10 mg PO DAILY [facility] Last Admin: 08/24/18 08:52 Dose: 10 mg Aspirin (Ecotrin) 81 mg PO DAILY@0800 [facility] Last Admin: 08/24/18 08:50 Dose: 81 mg Benzonatate (Tessalon Perle) 200 mg PO TID PRN PRN PRN Reason: COUGH Cholecalciferol (Vitamin D) 5,000 unit PO DAILY [facility] Last Admin: 08/24/18 08:52 Dose: 5,000 unit Enoxaparin Sodium (Lovenox) 40 mg SC DAILY@1000 [facility] Last Admin: 08/24/18 08:51 Dose: 40 mg Furosemide (Lasix) 20 mg IV BID@1000,1800 [facility] Guaifenesin (Mucinex) 1,200 mg PO BID [facility] Last Admin: 08/24/18 21:17 Dose: 1,200 mg Hydroxyzine Pamoate (Vistaril Pamoate Capsule) 25 mg PO QHS PRN PRN Reason: SLEEP Sodium Chloride () 250 mls @ 15 mls/hr IV .[id number] PRN PRN Reason: SALINE FLUSH Levofloxacin (Levaquin Iv) 750 mg in 150 mls @ 100 mls/hr IV Q24@2200 [facility] Last Admin: 08/24/18 21:17 Dose: 100 mls/hr Vancomycin IV Pharmacy to Dose (1 ea/ Sodium Chloride) 500 mls @ 250 mls/hr IV DAILY PRN; Protocol Vancomycin HCl (Vancomycin) 1,000 mg in 200 mls @ 200 mls/hr IV Q12H [facility] Last Admin: 08/25/18 05:55 Dose: 200 mls/hr Lactobacillus Acidophilus (Acidophilus) 1 tablet PO DAILY [facility] Last Admin: 08/24/18 08:51 Dose: 1 tablet Lorazepam (Ativan) 0.5 mg IV Q6H PRN PRN PRN Reason: ANXIETY Magnesium Hydroxide (Milk Of Magnesia) 30 ml PO DAILY PRN PRN Reason: Constipation Methylprednisolone (Solu-Medrol) 40 mg IV Q6 [facility] Metoprolol Tartrate (Lopressor (Beta Haris)) 25 mg PO BID [facility] Last Admin: 08/24/18 21:16 Dose: 25 mg Multivitamins (Multivitamin) 1 tablet PO DAILYCM [facility] Last Admin: 08/24/18 08:50 Dose: 1 tablet Nutritional Formula (Lactose Free) (Ensure Enlive) 120 ml PO 4X/DAY [facility] Last Admin: 08/24/18 21:17 Dose: Not Given Ondansetron HCl (Zofran) 4 mg IV Q8H PRN PRN PRN Reason: NAUSEA Pantoprazole Sodium (Protonix) 20 mg PO DAILY [facility] Last Admin: 08/24/18 08:52 Dose: 20 mg Sodium Chloride () 5 - 30 ml IV UD PRN PRN Reason: SALINE FLUSH Last Admin: 08/25/18 05:57 Dose: 5 ml Medical Necessity - Tobacco Use Smoking Status: Former smoker Assessment/Plan All Active Problems (Last Reviewed 08/24/18 @ 03:05 by Andrés Mane MD) Community acquired pneumonia (Acute) Hypoxemia (Acute) History of bilateral cataract extraction (Resolved) Status post trigger finger release (Resolved) History of cholecystectomy (Resolved) History of bilateral carpal tunnel release (Resolved) History of prostatectomy (Resolved) History of coronary artery bypass graft x 3 (Resolved) History of colonoscopy (Resolved) The patient is a 73 year old M with a significant history of former tobacco abuse; CAD status post CABG; hypertension;HLD; COPD, not on home oxygen, recent diagnosis of M protein positive, MGUS and rheumatoid arthritis who presented with progressively worsening shortness of breath that started in April of this year and further worsened in the past week. 1. Acute hypoxic respiratory failure probably multifactorial secondary to mixed ventilatory defect, interstitial lung disease/rheumatoid arthritis, COPD, traction bronchiectasis possible interstitial pneumonia: Patient initially was admitted in PCU and after yesterday saturation on 6 L of oxygen was put on BiPAP level of care changed to stepdown, then ICU and patient transferred to ICU today. ABG done yesterday 7.52/ 0.8/50 on 6 L of oxygen through nasal cannula. Currently on 40 FiO2 BiPAP and pulse ox 90-92%. Discussed with the mobile home park manager. Continue on IV Levaquin and vancomycin. The patient was started on IV Solu-Medrol by Dr. Silva after discussion with kiln operator. Clinical concern of idiopathic pulmonary fibrosis versus fibrosing NSIP. Preliminary sputum culture shows gram-positive cocci in chains and clusters. Urinary antigens and respiratory panel are negative. MRSA nasal screen negative. Mycoplasma antibody pending. HRCT done on 08/24 showed progression of fibrosis/scarring, diffuse in nature with honeycombing and bronchiectasis, worse in the right hemithorax. Continue other supportive treatment including bronchodilator, Mucinex, incentive spirometry and chest physiotherapy 2. MGUS: Patient had M protein disease which came out to MGUS. Dr. Sol. 3. Cardiac conditions include coronary artery status post CABG: Continue aspirin and metoprolol number cardiac medications. 4. Rheumatoid arthritis: Patient will need to follow with the test engineering intern, Dr Moise after discharge. There is Imuran anticipation of starting on as an outpatient by kiln operator 5. Hypertension: Blood pressure is controlled. GERD: On PPI DVT prophylaxis: On Lovenox. Clinical Impression(s) from Imaging Studies Chest X-Ray 08/24/18 01:19 IMPRESSION: Increasing right-sided airspace consolidation and left-sided airspace consolidation since previous study consistent with pneumonia. Chest CT 08/24/18 11:20 IMPRESSION: Changes compatible with a progressive pulmonary fibrosis with evidence of honeycombing and bronchiectasis. This is worse in the right hemithorax. Enlarged bilateral axillary lymph nodes. Code Visit Inpatient E&M: 99856 Subs Hosp L3
[2018-08-25 09:15] LABS: Absolute Lymphocyte Count 1.51 X10^3/ul (0.83-4.51); Basophil# 0.06 X10^3/uL; Basophil% 0.3 % (0-1); Eosinophil# 0.09 X10^3/uL; Eosinophils% 0.4 % (0-5); Hematocrit 41.2 % (40-54); Hemoglobin 13.6 g/dl (13.0-16.5); Lymphocyte # 1.51 X10^3/ul (4.0); Lymphocyte % 7.5 % (19-41); Mean Corpuscular Hgb 29.9 pg (27.0-32.0); Mean Corpuscular Volume 90.5 fL (80-94); Mean Platelet Vol. 9.6 fl (6.2-12.0); Monocyte# 1.27 X10^3/uL; Monocyte% 6.3 % (0-10); Neutrophil # 16.99 X10^3/uL (2.7-7.7); Neutrophil % 84.9 % (47-70); POSITIVE COUNT NO; POSITIVE DIFFERENTIAL NO; POSITIVE MORPHOLOGY NO; Platelet Count 322 K/mm3 (150-450); RBC Distribution Width CV 13.4 % (11.6-14.6); Red Blood Count 4.55 M/mm3 (4.6-6.2)
[2018-08-25 09:29] LABS: Anion Gap 13 (5-15); BUN 8 mg/dL (7-18); BUN/Creat Ratio 11.1 RATIO (10-20); Chloride 100 mmol/L (98-107); Creatinine, Serum 0.72 mg/dL (0.70-1.30); EST Glomerular Filtration Rate 113 mL/min (>60); Est Glom Filt Rate - Afr Amer 137 mL/min (>60); Estimated Creatinine Clearance 63.83 ml/min; Glucose 92 mg/dL (74-106); Potassium 3.8 mmol/L (3.5-5.1); Sodium Level 133 mmol/L (136-145)
[2018-08-25] MEDS: Furosemide 20 MG/2 ML VIAL IV ×2 (09:49→17:22)
[2018-08-25] MEDS: Enoxaparin 40 MG/0.4 ML Syringe SC (09:55)
[2018-08-25] MEDS: Aspirin E.C. 81 MG Tablet PO (11:31)
[2018-08-25] MEDS: Pantoprazole Sodium 20 MG Tablet PO (11:32)
[2018-08-25] MEDS: Metoprolol Tartrate 25 MG Tablet PO ×2 (11:32→21:03)
[2018-08-25] MEDS: 0.9% NaCl IVPB Med Flush (250 mL) 15 ML IV (11:39)
[2018-08-25] MEDS: amLODIPine 10 MG Tablet PO (13:05)
[2018-08-25] MEDS: Piperacil/Tazobactam 3.375 GM/50 ML ML IV ×2 (15:13→21:04)
[2018-08-25] MEDS: guaiFENesin 1,200 MG Tablet 1200 MG PO ×2 (15:13→21:04)
[2018-08-25] MEDS: hydrOXYzine PAM 25 MG Capsule PO (21:04)
[2018-08-26] VITALS (45 sets, daily range): BP systolic 95–133; BP diastolic 56–92; PULSE 75–108; RESP 12–29; TEMP 35.6–36.4; O2SAT 86–95
[2018-08-26] MEDS: Ipratropium/Albuterol Sulfate 3 ML AMPUL.NEB INHALATION ×6 (02:57→22:42)
[2018-08-26 04:49] LABS: Absolute Lymphocyte Count 1.41 X10^3/ul (0.83-4.51); Absolute Neutrophil Count 19.2 X10^3/uL (2.0-7.7); Basophil# 0.01 X10^3/uL; Hematocrit 42.6 % (40-54); Hemoglobin 14.5 g/dl (13.0-16.5); Lymphocyte # 1.41 X10^3/ul (4.0); Lymphocyte % 6.6 % (19-41); Mean Corpuscular Hgb 30.7 pg (27.0-32.0); Mean Corpuscular Volume 90.1 fL (80-94); Mean Platelet Vol. 9.5 fl (6.2-12.0); Monocyte# 0.72 X10^3/uL; Monocyte% 3.4 % (0-10); Neutrophil % 89.6 % (47-70); Platelet Count 335 K/mm3 (150-450); RBC Distribution Width CV 13.3 % (11.6-14.6); RBC Distribution Width SD 43.3 fl (35.1-43.9); Red Blood Count 4.73 M/mm3 (4.6-6.2); White Blood Count 21.4 K/mm3 (4.4-11.0)
[2018-08-26 04:51] LABS: POSITIVE COUNT NO; POSITIVE DIFFERENTIAL NO; POSITIVE MORPHOLOGY NO
[2018-08-26 05:02] LABS: Anion Gap 9 (5-15); BUN 14 mg/dL (7-18); BUN/Creat Ratio 19.3 RATIO (10-20); Calcium,Total 8.6 mg/dL (8.5-10.1); Chloride 100 mmol/L (98-107); Creatinine, Serum 0.73 mg/dL (0.70-1.30); EST Glomerular Filtration Rate 112 mL/min (>60); Est Glom Filt Rate - Afr Amer 136 mL/min (>60); Estimated Creatinine Clearance 63.83 ml/min; Glucose 153 mg/dL (74-106); Potassium 3.5 mmol/L (3.5-5.1); Sodium Level 136 mmol/L (136-145)
[2018-08-26] MEDS: Piperacil/Tazobactam 3.375 GM/50 ML ML IV ×3 (06:23→21:23)
--- NOTE | 2018-08-26 07:10 | PCM.PN.INT ---
Subjective: The patient was seen and examined at the bedside this morning. Events from the last 24 hours have been reviewed. The patient is currently afebrile, hemodynamically stable and maintaining appropriate oxygen saturations on BiPAP with an FiO2 of 40%. The patient was documented to be net -1.7 L yesterday. His creatinine remains stable. The patient remains short of breath this morning with a productive cough. Objective: The patient's most recent lab work, culture data and imaging studies have all been personally reviewed. Previous chest CT from April 2018 revealed evidence of emphysematous changes along with subpleural reticular changes and focal areas of honeycombing. There was also evidence of traction bronchiectasis. A repeat CT chest (high-resolution) was obtained on August 24 and revealed evidence of significant reticular and groundglass changes bilaterally along with traction bronchiectasis and some subpleural honeycombing, suggestive of fibrotic lung disease. The changes noted on the patient's most recent CT chest had progressed significantly since his last imaging study in April 2018. Surface echocardiogram revealed evidence of stage I diastolic dysfunction with a pulmonary artery systolic pressure estimated to be 44 mmHg. The patient's respiratory viral panel was negative. Strep and urine Legionella antigens were negative. Blood and urine cultures have shown no growth to date. Preliminary respiratory culture appears to be normal respiratory mike. General: Alert, Oriented x3, Cooperative HEENT: Atraumatic, PERRLA, Normocephalic Oral: No Gingival or Mucosal Lesions/ Ulcerations Neck: Supple, No Nodes, Trachea Midline Lungs: No rhonchi, No wheeze, Diminished, Rales, Tachypneic Cardiovascular: Regular rate, Regular Rhythm, Normal S1, Normal S2, No murmurs Abdomen: Bowel Sounds Present, Soft, Non Tender Extremities: No cyanosis, No edema, Clubbing Skin: No breakdown Musculoskeletal: No Tenderness to Palpation of Joints or Extremities, No Muscle Wasting Lymphatic: No Cervical, Supraclavicular, or Inguinal Adenopathy Neurological: Cranial nerves II-XII grossly intact, Neuro grossly intact Psych/Mental Status: Normal Affect, Appropriate Vital Signs Temp Pulse Resp BP Pulse Ox 36.3 C L 77 21 H 101/66 92 08/26/18 04:00 08/26/18 06:00 08/26/18 06:00 08/26/18 06:00 08/26/18 06:00 Oxygen Flow Rate (L/min) 4 Oxygen Delivery Method Bi-pap Weight: 195 lb 8.8 oz Body Mass Index (BMI) 28.9 Intake and Output for Last 24 Hours 08/24/18 08/25/18 08/26/18 23:59 23:59 23:59 Intake Total 1337.8 / 1337.8 385 / 385 528.3 / 528.3 Output Total 325 / 325 2175 / 2175 1250 / 1250 Balance 1012.8 / 1012.8 -1790 / -1790 -721.7 / -721.7 Labs (Last 48 Hours) 08/24/18 08/24/18 08/25/18 17:04 17:12 06:12 WBC RBC Hgb Hct MCV MCH MCHC RDW RDW Differential Plt Count MPV Immature Gran % (Auto) Neut % (Auto) Lymph % (Auto) [place] % (Auto) Eos % (Auto) Baso % (Auto) Absolute Neuts (auto) Absolute Lymphs (auto) Total Counted Specimen Type ART Sample Site L Radial pH 7.52 H Bicarbonate Actual 21.7 L POC Total CO2 23 Base Excess -1 O2 Saturation 89 L ABG pCO2 26.8 L ABG pO2 50 L Spenser Test NA O2 Delivery Device Nasal Can Liter Flow 6.0 Blood Gas Notified Whom HOSP Blood Gas Notified Time 1720 Sodium Potassium Chloride Carbon Dioxide Anion Gap BUN Creatinine Estim Creat Clear Calc Est GFR (MDRD) Af Amer Est GFR (MDRD) Non-Af BUN/Creatinine Ratio Glucose Calcium B-Natriuretic Peptide 177.8 H MRSA (PCR) Negative 08/25/18 08/25/18 08/26/18 09:00 09:00 04:45 WBC 20.0 H 21.4 H RBC 4.55 L 4.73 Hgb 13.6 14.5 Hct 41.2 42.6 MCV 90.5 90.1 MCH 29.9 30.7 MCHC 33.0 34.0 RDW 13.4 13.3 RDW Differential 44.0 H 43.3 Plt Count 322 335 MPV 9.6 9.5 Immature Gran % (Auto) 0.600 0.400 Neut % (Auto) 84.9 H 89.6 H Lymph % (Auto) 7.5 L 6.6 L [place] % (Auto) 6.3 3.4 Eos % (Auto) 0.4 0.0 Baso % (Auto) 0.3 0.0 Absolute Neuts (auto) 17.0 H 19.2 H Absolute Lymphs (auto) 1.51 1.41 Total Counted Not Reportable Not Reportable Specimen Type Sample Site pH Bicarbonate Actual POC Total CO2 Base Excess O2 Saturation ABG pCO2 ABG pO2 Spenser Test O2 Delivery Device Liter Flow Blood Gas Notified Whom Blood Gas Notified Time Sodium 133 L Potassium 3.8 Chloride 100 Carbon Dioxide 20.0 L Anion Gap 13 BUN 8 Creatinine 0.72 Estim Creat Clear Calc 63.83 Est GFR (MDRD) Af Amer 137 Est GFR (MDRD) Non-Af 113 BUN/Creatinine Ratio 11.1 Glucose 92 Calcium 8.0 L B-Natriuretic Peptide MRSA (PCR) 08/26/18 04:45 WBC RBC Hgb Hct MCV MCH MCHC RDW RDW Differential Plt Count MPV Immature Gran % (Auto) Neut % (Auto) Lymph % (Auto) [place] % (Auto) Eos % (Auto) Baso % (Auto) Absolute Neuts (auto) Absolute Lymphs (auto) Total Counted Specimen Type Sample Site pH Bicarbonate Actual POC Total CO2 Base Excess O2 Saturation ABG pCO2 ABG pO2 Spenser Test O2 Delivery Device Liter Flow Blood Gas Notified Whom Blood Gas Notified Time Sodium 136 Potassium 3.5 Chloride 100 Carbon Dioxide 27.0 Anion Gap 9 BUN 14 Creatinine 0.73 Estim Creat Clear Calc 63.83 Est GFR (MDRD) Af Amer 136 Est GFR (MDRD) Non-Af 112 BUN/Creatinine Ratio 19.3 Glucose 153 H Calcium 8.6 B-Natriuretic Peptide MRSA (PCR) Microbiology 08/24/18 14:30 Mucosa - Nose Respiratory Panel (PCR) - Final 08/24/18 03:16 Urine, Random Urine Culture - Preliminary Culture exhibits no growth. 08/24/18 01:24 Sputum, Expectorated/Coughed Gram Stain - Final 08/24/18 01:24 Sputum, Expectorated/Coughed Respiratory Culture - Preliminary 08/24/18 03:16 Urine, Clean Catch Streptococcus pneumoniae Antigen (M - Final 08/24/18 03:16 Urine, Clean Catch Legionella Antigen - Final Clinical Impression(s) from Imaging Studies Chest X-Ray 08/24/18 01:19 IMPRESSION: Increasing right-sided airspace consolidation and left-sided airspace consolidation since previous study consistent with pneumonia. Electronically Signed: Carmencita Barron MD at 2:01 EST , Service support , Chest CT 08/24/18 11:20 IMPRESSION: Changes compatible with a progressive pulmonary fibrosis with evidence of honeycombing and bronchiectasis. This is worse in the right hemithorax. Enlarged bilateral axillary lymph nodes. Electronically Signed: Joseph Sheriff MD at 12:53 EST Tel [phone], Service support , Medical Necessity - Tobacco Use Smoking Status: Former smoker Assessment/Plan All Active Problems (Last Reviewed 08/24/18 @ 03:05 by Andrés Mane MD) Community acquired pneumonia (Acute) Hypoxemia (Acute) History of bilateral cataract extraction (Resolved) Status post trigger finger release (Resolved) History of cholecystectomy (Resolved) History of bilateral carpal tunnel release (Resolved) History of prostatectomy (Resolved) History of coronary artery bypass graft x 3 (Resolved) History of colonoscopy (Resolved) RECOMMENDATIONS: 1. Continue antibiotics as ordered. If the patient is able to produce a significant amount of sputum, resend for culture. 2. Continue scheduled bronchodilators. 3. Continue IV steroids. 4. Continue scheduled Lasix as ordered. 5. Wean supplemental oxygen as tolerated. The patient has remained largely BiPAP dependent. Goal oxygen saturation at or above 88%. 6. Encourage aggressive incentive spirometer use and mobilize patient as elevated. 7. If the patient's hypoxia does not begin to improve in the next 24-48 hours, consideration be given to obtaining a CTA chest to evaluate for PE. IMPRESSIONS: 1. Acute hypoxic respiratory failure/underlying mixed ventilatory defect with exacerbation/bronchiectasis Likely multifactorial in etiology. While the patient did have what appeared to be the beginning stages of an interstitial lung process in April, a high resolution chest CT obtained during this hospitalization revealed significant interval worsening in the patient's fibrotic interstitial lung disease. While I cannot discount the possibility for underlying pulmonary infectious process, the patient has known bronchiectasis which could be contributing to his current cough complaints. In addition, a surface echocardiogram did reveal evidence of diastolic dysfunction and pulmonary hypertension. My clinical concern is that the patient's evolving interstitial lung process could be the consequence of idiopathic pulmonary fibrosis versus fibrosing NSIP, given that the patient was recently identified as having rheumatoid arthritis. Therefore, he will be continued on IV steroids. He will also be continued on antibiotics, pending a pulmonary infectious workup. BiPAP will be continued and weaned as tolerated. Goal to maintain an oxygen saturation at or above 88%. Continue scheduled bronchodilators as ordered. 2. Heart failure with preserved ejection fraction/pulmonary hypertension The patient's pulmonary hypertension is most likely the consequence of his underlying pulmonary process coupled with hypoxia. Continue current supportive measures as noted above. The patient will be continued on low-dose Lasix today as well. 3. Recently diagnosed rheumatoid arthritis and MGUS The patient was referred to rheumatology from the office of Dr. Hein after he was noted to have a positive rheumatoid factor and anti-CCP antibody. However, the rehabilitation worker identified an abnormal M protein, which prompted a referral to Dr. Sol of hematology. I personally discussed the patient with Dr. 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 I do feel that it will be imperative that the patient return to the rehabilitation worker as quickly as possible to be started on therapy for his underlying rheumatologic disease, as this could be contributing to his current lung manifestations. I did call and speak with the patient's rehabilitation worker, Dr. Moise, at the [facility] ([phone]), who indicated that it was his intention to start the patient on a medication like Imuran, once he was cleared by hematology. We will plan to call the patient's rehabilitation worker office once the patient has been medically stabilized for discharge to set up an expedited follow-up office visit. He is currently scheduled for a follow-up visit on October 12. 4. Prior history of tobacco abuse/hypertension/GERD Complicates care, management, recovery and prognosis. Continue home medications as indicated. TIME: 38 minutes of critical care time, independent of procedures, was spent addressing the patient's acute hypoxic respiratory failure, COPD/bronchiectasis with exacerbation, heart failure with preserved ejection fraction, pulmonary hypertension, rheumatoid arthritis, MGUS, review of all data and collaboration with the care team. ([id number]) Code Visit 9xxxx: [id number] Critical care first hour
--- NOTE | 2018-08-26 07:13 | PN_ITS ---
Subjective: The patient was seen and examined at the bedside this morning. Events from the last 24 hours have been reviewed. The patient is currently afebrile, hemodynamically stable and maintaining appropriate oxygen saturations on BiPAP with an FiO2 of 40%. The patient was documented to be net -1.7 L yesterday. His creatinine remains stable. The patient remains short of breath this morning with a productive cough. Objective: The patient's most recent lab work, culture data and imaging studies have all been personally reviewed. Previous chest CT from April 2018 revealed evidence of emphysematous changes along with subpleural reticular changes and focal areas of honeycombing. There was also evidence of traction bronchiectasis. A repeat CT chest (high-resolution) was obtained on August 24 and revealed evidence of significant reticular and groundglass changes bilaterally along with traction bronchiectasis and some subpleural honeycombing, suggestive of fibrotic lung disease. The changes noted on the patient's most recent CT chest had progressed significantly since his last imaging study in April 2018. Surface echocardiogram revealed evidence of stage I diastolic dysfunction with a pulmonary artery systolic pressure estimated to be 44 mmHg. The patient's respiratory viral panel was negative. Strep and urine Legionella antigens were negative. Blood and urine cultures have shown no growth to date. Preliminary respiratory culture appears to be normal respiratory mike. General: Alert, Oriented x3, Cooperative HEENT: Atraumatic, PERRLA, Normocephalic Oral: No Gingival or Mucosal Lesions/ Ulcerations Neck: Supple, No Nodes, Trachea Midline Lungs: No rhonchi, No wheeze, Diminished, Rales, Tachypneic Cardiovascular: Regular rate, Regular Rhythm, Normal S1, Normal S2, No murmurs Abdomen: Bowel Sounds Present, Soft, Non Tender Extremities: No cyanosis, No edema, Clubbing Skin: No breakdown Musculoskeletal: No Tenderness to Palpation of Joints or Extremities, No Muscle Wasting Lymphatic: No Cervical, Supraclavicular, or Inguinal Adenopathy Neurological: Cranial nerves II-XII grossly intact, Neuro grossly intact Psych/Mental Status: Normal Affect, Appropriate Vital Signs Temp Pulse Resp BP Pulse Ox 36.3 C L 77 21 H 101/66 92 08/26/18 04:00 08/26/18 06:00 08/26/18 06:00 08/26/18 06:00 08/26/18 06:00 Oxygen Flow Rate (L/min) 4 Oxygen Delivery Method Bi-pap Weight: 195 lb 8.8 oz Body Mass Index (BMI) 28.9 Intake and Output for Last 24 Hours 08/24/18 08/25/18 08/26/18 23:59 23:59 23:59 Intake Total 1337.8 / 1337.8 385 / 385 528.3 / 528.3 Output Total 325 / 325 2175 / 2175 1250 / 1250 Balance 1012.8 / 1012.8 -1790 / -1790 -721.7 / -721.7 Labs (Last 48 Hours) 08/24/18 08/24/18 08/25/18 17:04 17:12 06:12 WBC RBC Hgb Hct MCV MCH MCHC RDW RDW Differential Plt Count MPV Immature Gran % (Auto) Neut % (Auto) Lymph % (Auto) [place] % (Auto) Eos % (Auto) Baso % (Auto) Absolute Neuts (auto) Absolute Lymphs (auto) Total Counted Specimen Type ART Sample Site L Radial pH 7.52 H Bicarbonate Actual 21.7 L POC Total CO2 23 Base Excess -1 O2 Saturation 89 L ABG pCO2 26.8 L ABG pO2 50 L Spenser Test NA O2 Delivery Device Nasal Can Liter Flow 6.0 Blood Gas Notified Whom HOSP Blood Gas Notified Time 1720 Sodium Potassium Chloride Carbon Dioxide Anion Gap BUN Creatinine Estim Creat Clear Calc Est GFR (MDRD) Af Amer Est GFR (MDRD) Non-Af BUN/Creatinine Ratio Glucose Calcium B-Natriuretic Peptide 177.8 H MRSA (PCR) Negative 08/25/18 08/25/18 08/26/18 09:00 09:00 04:45 WBC 20.0 H 21.4 H RBC 4.55 L 4.73 Hgb 13.6 14.5 Hct 41.2 42.6 MCV 90.5 90.1 MCH 29.9 30.7 MCHC 33.0 34.0 RDW 13.4 13.3 RDW Differential 44.0 H 43.3 Plt Count 322 335 MPV 9.6 9.5 Immature Gran % (Auto) 0.600 0.400 Neut % (Auto) 84.9 H 89.6 H Lymph % (Auto) 7.5 L 6.6 L [place] % (Auto) 6.3 3.4 Eos % (Auto) 0.4 0.0 Baso % (Auto) 0.3 0.0 Absolute Neuts (auto) 17.0 H 19.2 H Absolute Lymphs (auto) 1.51 1.41 Total Counted Not Reportable Not Reportable Specimen Type Sample Site pH Bicarbonate Actual POC Total CO2 Base Excess O2 Saturation ABG pCO2 ABG pO2 Spenser Test O2 Delivery Device Liter Flow Blood Gas Notified Whom Blood Gas Notified Time Sodium 133 L Potassium 3.8 Chloride 100 Carbon Dioxide 20.0 L Anion Gap 13 BUN 8 Creatinine 0.72 Estim Creat Clear Calc 63.83 Est GFR (MDRD) Af Amer 137 Est GFR (MDRD) Non-Af 113 BUN/Creatinine Ratio 11.1 Glucose 92 Calcium 8.0 L B-Natriuretic Peptide MRSA (PCR) 08/26/18 04:45 WBC RBC Hgb Hct MCV MCH MCHC RDW RDW Differential Plt Count MPV Immature Gran % (Auto) Neut % (Auto) Lymph % (Auto) [place] % (Auto) Eos % (Auto) Baso % (Auto) Absolute Neuts (auto) Absolute Lymphs (auto) Total Counted Specimen Type Sample Site pH Bicarbonate Actual POC Total CO2 Base Excess O2 Saturation ABG pCO2 ABG pO2 Spenser Test O2 Delivery Device Liter Flow Blood Gas Notified Whom Blood Gas Notified Time Sodium 136 Potassium 3.5 Chloride 100 Carbon Dioxide 27.0 Anion Gap 9 BUN 14 Creatinine 0.73 Estim Creat Clear Calc 63.83 Est GFR (MDRD) Af Amer 136 Est GFR (MDRD) Non-Af 112 BUN/Creatinine Ratio 19.3 Glucose 153 H Calcium 8.6 B-Natriuretic Peptide MRSA (PCR) Microbiology 08/24/18 14:30 Mucosa - Nose Respiratory Panel (PCR) - Final 08/24/18 03:16 Urine, Random Urine Culture - Preliminary Culture exhibits no growth. 08/24/18 01:24 Sputum, Expectorated/Coughed Gram Stain - Final 08/24/18 01:24 Sputum, Expectorated/Coughed Respiratory Culture - Preliminary 08/24/18 03:16 Urine, Clean Catch Streptococcus pneumoniae Antigen (M - Final 08/24/18 03:16 Urine, Clean Catch Legionella Antigen - Final Clinical Impression(s) from Imaging Studies Chest X-Ray 08/24/18 01:19 IMPRESSION: Increasing right-sided airspace consolidation and left-sided airspace consolidation since previous study consistent with pneumonia. Electronically Signed: Carmencita Barron MD at 2:01 EST , Service support , Chest CT 08/24/18 11:20 IMPRESSION: Changes compatible with a progressive pulmonary fibrosis with evidence of honeycombing and bronchiectasis. This is worse in the right hemithorax. Enlarged bilateral axillary lymph nodes. Electronically Signed: Joseph Sheriff MD at 12:53 EST Tel [phone], Service support , Medical Necessity - Tobacco Use Smoking Status: Former smoker Assessment/Plan All Active Problems (Last Reviewed 08/24/18 @ 03:05 by Andrés Mane MD) Community acquired pneumonia (Acute) Hypoxemia (Acute) History of bilateral cataract extraction (Resolved) Status post trigger finger release (Resolved) History of cholecystectomy (Resolved) History of bilateral carpal tunnel release (Resolved) History of prostatectomy (Resolved) History of coronary artery bypass graft x 3 (Resolved) History of colonoscopy (Resolved) RECOMMENDATIONS: 1. Continue antibiotics as ordered. If the patient is able to produce a significant amount of sputum, resend for culture. 2. Continue scheduled bronchodilators. 3. Continue IV steroids. 4. Continue scheduled Lasix as ordered. 5. Wean supplemental oxygen as tolerated. The patient has remained largely BiPAP dependent. Goal oxygen saturation at or above 88%. 6. Encourage aggressive incentive spirometer use and mobilize patient as elevated. 7. If the patient's hypoxia does not begin to improve in the next 24-48 hours, consideration be given to obtaining a CTA chest to evaluate for PE. IMPRESSIONS: 1. Acute hypoxic respiratory failure/underlying mixed ventilatory defect with exacerbation/bronchiectasis Likely multifactorial in etiology. While the patient did have what appeared to be the beginning stages of an interstitial lung process in April, a high resolution chest CT obtained during this hospitalization revealed significant interval worsening in the patient's fibrotic interstitial lung disease. While I cannot discount the possibility for underlying pulmonary infectious process, the patient has known bronchiectasis which could be contributing to his current cough complaints. In addition, a surface echocardiogram did reveal evidence of diastolic dysfunction and pulmonary hypertension. My clinical concern is that the patient's evolving interstitial lung process could be the consequence of idiopathic pulmonary fibrosis versus fibrosing NSIP, given that the patient was recently identified as having rheumatoid arthritis. Therefore, he will be continued on IV steroids. He will also be continued on antibiotics, pending a pulmonary infectious workup. BiPAP will be continued and weaned as tolerated. Goal to maintain an oxygen saturation at or above 88%. Continue scheduled bronchodilators as ordered. 2. Heart failure with preserved ejection fraction/pulmonary hypertension The patient's pulmonary hypertension is most likely the consequence of his underlying pulmonary process coupled with hypoxia. Continue current supportive measures as noted above. The patient will be continued on low-dose Lasix today as well. 3. Recently diagnosed rheumatoid arthritis and MGUS The patient was referred to rheumatology from the office of Dr. Hein after he was noted to have a positive rheumatoid factor and anti-CCP antibody. However, the metal fabricating supervisor identified an abnormal M protein, which prompted a referral to Dr. Sol of hematology. I personally discussed the patient with Dr. 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 I do feel that it will be imperative that the patient return to the metal fabricating supervisor as quickly as possible to be started on therapy for his underlying rheumatologic disease, as this could be contributing to his current lung manifestations. I did call and speak with the patient's metal fabricating supervisor, Dr. Moise, at the [facility] ([phone]), who indicated that it was his intention to start the patient on a medication like Imuran, once he was cleared by hematology. We will plan to call the patient's metal fabricating supervisor office once the patient has been medically stabilized for discharge to set up an expedited follow-up office visit. He is currently scheduled for a follow-up visit on October 12. 4. Prior history of tobacco abuse/hypertension/GERD Complicates care, management, recovery and prognosis. Continue home medications as indicated. TIME: 38 minutes of critical care time, independent of procedures, was spent addressing the patient's acute hypoxic respiratory failure, COPD/bronchiectasis with exacerbation, heart failure with preserved ejection fraction, pulmonary hypertension, rheumatoid arthritis, MGUS, review of all data and collaboration with the care team. ([id number]) Code Visit 9xxxx: [id number] Critical care first hour
--- NOTE | 2018-08-26 07:29 | PCM.PN.HOSP ---
Patient Problems: Active and Suspected Problems (Last Reviewed 08/24/18 @ 03:05 by Andrés Mane MD) Community acquired pneumonia (Acute) Hypoxemia (Acute) Subjective: Seen and examined Patient is on BiPAP, 40% FiO2, RR 16-20/min with pulse ox 90%. No fever. Vitals/I&O's: Vital Signs Temp Pulse Resp BP Pulse Ox 97.4 F L 77 21 H 101/66 92 08/26/18 04:00 08/26/18 06:00 08/26/18 06:00 08/26/18 06:00 08/26/18 06:00 Oxygen Flow Rate (L/min) 4 Oxygen Delivery Method Bi-pap Weight: 195 lb 8.8 oz Body Mass Index (BMI) 28.9 Intake and Output for Last 24 Hours 08/24/18 08/25/18 08/26/18 23:59 23:59 23:59 Intake Total 1337.8 / 1337.8 385 / 385 528.3 / 528.3 Output Total 325 / 325 2175 / 2175 1250 / 1250 Balance 1012.8 / 1012.8 -1790 / -1790 -721.7 / -721.7 General: Alert, Oriented x3, Cooperative HEENT: Atraumatic, PERRLA, EOMI, Normocephalic Neck: Supple, No JVD, Negative Carotid Bruits Lungs: Diminished, Rales - Inspiratory coarse rales present throughout the lung, Rhonchi, Short of Breath Cardiovascular: Regular rate, Regular Rhythm, Normal S1, Normal S2, No murmurs Abdomen: Bowel Sounds Present, Soft, Non Tender, Non-Distended Extremities: No edema, Capillary Refill Less than 3 Seconds Skin: No rashes, No breakdown Musculoskeletal: No Tenderness to Palpation of Joints or Extremities, Arthritic Changes - Has rheumatoid arthritis, Muscle Wasting Neurological: Cranial nerves II-XII grossly intact, Deep Tendon Reflexes 2+/4 and Symmetrical, Neuro grossly intact Psych/Mental Status: Normal Affect, Appropriate Microbiology Past 72 Hours 08/24/18 14:30 Mucosa - Nose Respiratory Panel (PCR) - Final 08/24/18 03:16 Urine, Random Urine Culture - Preliminary Culture exhibits no growth. 08/24/18 01:24 Sputum, Expectorated/Coughed Gram Stain - Final 08/24/18 01:24 Sputum, Expectorated/Coughed Respiratory Culture - Preliminary 08/24/18 03:16 Urine, Clean Catch Streptococcus pneumoniae Antigen (M - Final 08/24/18 03:16 Urine, Clean Catch Legionella Antigen - Final Laboratory Results 08/25/18 06:12: B-Natriuretic Peptide 177.8 H 08/25/18 09:00: WBC 20.0 H, RBC 4.55 L, Hgb 13.6, Hct 41.2, MCV 90.5, MCH 29.9, MCHC 33.0, RDW 13.4, RDW Differential 44.0 H, Plt Count 322, MPV 9.6, Immature Gran % (Auto) 0.600, Neut % (Auto) 84.9 H, Lymph % (Auto) 7.5 L, [place] % (Auto) 6.3, Eos % (Auto) 0.4, Baso % (Auto) 0.3, Absolute Neuts (auto) 17.0 H, Absolute Lymphs (auto) 1.51, Total Counted Not Reportable 08/25/18 09:00: Sodium 133 L, Potassium 3.8, Chloride 100, Carbon Dioxide 20.0 L, Anion Gap 13, BUN 8, Creatinine 0.72, Estim Creat Clear Calc 63.83, Est GFR (MDRD) Af Amer 137, Est GFR (MDRD) Non-Af 113, BUN/Creatinine Ratio 11.1, Glucose 92, Calcium 8.0 L 08/26/18 04:45: WBC 21.4 H, RBC 4.73, Hgb 14.5, Hct 42.6, MCV 90.1, MCH 30.7, MCHC 34.0, RDW 13.3, RDW Differential 43.3, Plt Count 335, MPV 9.5, Immature Gran % (Auto) 0.400, Neut % (Auto) 89.6 H, Lymph % (Auto) 6.6 L, [place] % (Auto) 3.4, Eos % (Auto) 0.0, Baso % (Auto) 0.0, Absolute Neuts (auto) 19.2 H, Absolute Lymphs (auto) 1.41, Total Counted Not Reportable 08/26/18 04:45: Sodium 136, Potassium 3.5, Chloride 100, Carbon Dioxide 27.0, Anion Gap 9, BUN 14, Creatinine 0.73, Estim Creat Clear Calc 63.83, Est GFR (MDRD) Af Amer 136, Est GFR (MDRD) Non-Af 112, BUN/Creatinine Ratio 19.3, Glucose 153 H, Calcium 8.6 Current Medications Acetaminophen (Tylenol) 650 mg PO Q4H PRN PRN PRN Reason: FEVER Last Admin: 08/24/18 16:16 Dose: 650 mg Albuterol Sulfate (Ventolin Aerosols) 2.5 mg INHALATION Q2H PRN PRN PRN Reason: SHORTNESS OF BREATH Last Admin: 08/24/18 04:02 Dose: 2.5 mg Albuterol/Ipratropium (Duoneb) 3 ml INHALATION Q4H.RT [facility] Last Admin: 08/26/18 07:09 Dose: 3 ml Amlodipine Besylate (Norvasc) 10 mg PO DAILY [facility] Last Admin: 08/25/18 13:05 Dose: 10 mg Aspirin (Ecotrin) 81 mg PO DAILY@0800 [facility] Last Admin: 08/25/18 11:31 Dose: 81 mg Benzonatate (Tessalon Perle) 200 mg PO TID PRN PRN PRN Reason: COUGH Cholecalciferol (Vitamin D) 5,000 unit PO DAILY [facility] Last Admin: 08/25/18 10:00 Dose: Not Given Enoxaparin Sodium (Lovenox) 40 mg SC DAILY@1000 [facility] Last Admin: 08/25/18 09:55 Dose: 40 mg Furosemide (Lasix) 20 mg IV BID@1000,1800 [facility] Last Admin: 08/25/18 17:22 Dose: 20 mg Guaifenesin (Mucinex) 1,200 mg PO BID [facility] Last Admin: 08/25/18 21:04 Dose: 1,200 mg Hydroxyzine Pamoate (Vistaril Pamoate Capsule) 25 mg PO QHS PRN PRN Reason: SLEEP Last Admin: 08/25/18 21:04 Dose: 25 mg Sodium Chloride () 250 mls @ 15 mls/hr IV .[id number] PRN PRN Reason: SALINE FLUSH Last Admin: 08/25/18 11:39 Dose: 15 mls/hr Piperacillin Sod/Tazobactam Sod (Zosyn) 3.375 gm in 50 mls @ 12.5 mls/hr IV Q8 [facility] Last Admin: 08/26/18 06:23 Dose: 12.5 mls/hr Potassium Chloride (Kcl 10meq/100ml) 10 meq in 100 mls @ 100 mls/hr IV BOLUS Q1H [facility] Stop: 08/26/18 11:59 Lactobacillus Acidophilus (Acidophilus) 1 tablet PO DAILY [facility] Last Admin: 08/25/18 10:00 Dose: Not Given Lorazepam (Ativan) 0.5 mg IV Q6H PRN PRN PRN Reason: ANXIETY Magnesium Hydroxide (Milk Of Magnesia) 30 ml PO DAILY PRN PRN Reason: Constipation Methylprednisolone (Solu-Medrol) 40 mg IV Q6 [facility] Last Admin: 08/26/18 06:23 Dose: 40 mg Metoprolol Tartrate (Lopressor (Beta Haris)) 25 mg PO BID [facility] Last Admin: 08/25/18 21:03 Dose: 25 mg Multivitamins (Multivitamin) 1 tablet PO DAILYCM [facility] Last Admin: 08/25/18 08:30 Dose: Not Given Nutritional Formula (Lactose Free) (Ensure Enlive) 120 ml PO 4X/DAY [facility] Last Admin: 08/25/18 21:04 Dose: 120 ml Ondansetron HCl (Zofran) 4 mg IV Q8H PRN PRN PRN Reason: NAUSEA Pantoprazole Sodium (Protonix) 20 mg PO DAILY [facility] Last Admin: 08/25/18 11:32 Dose: 20 mg Sodium Chloride () 5 - 30 ml IV UD PRN PRN Reason: SALINE FLUSH Last Admin: 08/25/18 09:50 Dose: 20 ml Medical Necessity - Tobacco Use Smoking Status: Former smoker Assessment/Plan All Active Problems (Last Reviewed 08/24/18 @ 03:05 by Andrés Mane MD) Community acquired pneumonia (Acute) Hypoxemia (Acute) History of bilateral cataract extraction (Resolved) Status post trigger finger release (Resolved) History of cholecystectomy (Resolved) History of bilateral carpal tunnel release (Resolved) History of prostatectomy (Resolved) History of coronary artery bypass graft x 3 (Resolved) History of colonoscopy (Resolved) The patient is a 73 year old M with a significant history of former tobacco abuse; CAD status post CABG; hypertension;HLD; COPD, not on home oxygen, recent diagnosis of M protein positive, MGUS and rheumatoid arthritis who presented with progressively worsening shortness of breath that started in April of this year and further worsened in the past week. 1. Acute hypoxic respiratory failure probably multifactorial secondary to mixed ventilatory defect, interstitial lung disease/rheumatoid arthritis, COPD, traction bronchiectasis possible interstitial pneumonia: Patient initially was admitted in PCU and after yesterday saturation on 6 L of oxygen was put on BiPAP level of care changed to stepdown, then ICU and patient transferred to ICU today. ABG 7.52/26 0.8/50 on 6 L of oxygen through nasal cannula. Currently on 40 FiO2 BiPAP and pulse ox 90-92%. Try to wean off BiPAP as per patient tolerates gradually. Discussed with the [place] regional sales manager. Continue on IV Levaquin and vancomycin. The patient was started on IV Solu-Medrol by Dr. Silva after discussion with propellant charge zone assembler. Clinical concern of idiopathic pulmonary fibrosis versus fibrosing NSIP. Preliminary sputum culture shows gram-positive cocci in chains and clusters. Urinary antigens and respiratory panel are negative. MRSA nasal screen negative. Mycoplasma antibody pending. HRCT done on 08/24 showed progression of fibrosis/scarring, diffuse in nature with honeycombing and bronchiectasis, worse in the right hemithorax. Continue other supportive treatment including bronchodilator, Mucinex, incentive spirometry and chest physiotherapy 2. MGUS: Patient had M protein disease which came out to MGUS. Dr. Sol. 3. Cardiac conditions include coronary artery status post CABG: Continue aspirin and metoprolol number cardiac medications. 4. Rheumatoid arthritis: Patient will need to follow with the clinical medical transcriptionist, Dr Moise after discharge. There is Imuran anticipation of starting on as an outpatient by propellant charge zone assembler 5. Hypertension: Blood pressure is controlled. GERD: On PPI DVT prophylaxis: On Lovenox. Hospital course, patient's disease condition and management discussed with the patient's son near the bedside. Clinical Impression(s) from Imaging Studies Chest X-Ray 08/24/18 01:19 IMPRESSION: Increasing right-sided airspace consolidation and left-sided airspace consolidation since previous study consistent with pneumonia. Chest CT 08/24/18 11:20 IMPRESSION: Changes compatible with a progressive pulmonary fibrosis with evidence of honeycombing and bronchiectasis. This is worse in the right hemithorax. Enlarged bilateral axillary lymph nodes. Active Medications Acetaminophen (Tylenol) 650 mg PO Q4H PRN PRN PRN Reason: FEVER Last Admin: 08/24/18 16:16 Dose: 650 mg Albuterol Sulfate (Ventolin Aerosols) 2.5 mg INHALATION Q2H PRN PRN PRN Reason: SHORTNESS OF BREATH Last Admin: 08/24/18 04:02 Dose: 2.5 mg Albuterol/Ipratropium (Duoneb) 3 ml INHALATION Q4H.RT [facility] Last Admin: 08/26/18 11:10 Dose: 3 ml Amlodipine Besylate (Norvasc) 10 mg PO DAILY [facility] Last Admin: 08/26/18 10:48 Dose: 10 mg Aspirin (Ecotrin) 81 mg PO DAILY@0800 [facility] Last Admin: 08/26/18 10:46 Dose: 81 mg Benzonatate (Tessalon Perle) 200 mg PO TID PRN PRN PRN Reason: COUGH Cholecalciferol (Vitamin D) 5,000 unit PO DAILY [facility] Last Admin: 08/26/18 10:48 Dose: 5,000 unit Enoxaparin Sodium (Lovenox) 40 mg SC DAILY@1000 [facility] Last Admin: 08/26/18 10:47 Dose: 40 mg Furosemide (Lasix) 20 mg IV BID@1000,1800 [facility] Last Admin: 08/26/18 10:52 Dose: 20 mg Guaifenesin (Mucinex) 1,200 mg PO BID [facility] Last Admin: 08/26/18 10:48 Dose: 1,200 mg Hydroxyzine Pamoate (Vistaril Pamoate Capsule) 25 mg PO QHS PRN PRN Reason: SLEEP Last Admin: 08/25/18 21:04 Dose: 25 mg Sodium Chloride () 250 mls @ 15 mls/hr IV .[id number] PRN PRN Reason: SALINE FLUSH Last Admin: 08/25/18 11:39 Dose: 15 mls/hr Piperacillin Sod/Tazobactam Sod (Zosyn) 3.375 gm in 50 mls @ 12.5 mls/hr IV Q8 [facility] Last Admin: 08/26/18 06:23 Dose: 12.5 mls/hr Potassium Chloride (Kcl 10meq/100ml) 10 meq in 100 mls @ 100 mls/hr IV BOLUS Q1H [facility] Stop: 08/26/18 11:59 Last Admin: 08/26/18 10:52 Dose: 100 mls/hr Lactobacillus Acidophilus (Acidophilus) 1 tablet PO DAILY [facility] Last Admin: 08/26/18 10:47 Dose: 1 tablet Lorazepam (Ativan) 0.5 mg IV Q6H PRN PRN PRN Reason: ANXIETY Magnesium Hydroxide (Milk Of Magnesia) 30 ml PO DAILY PRN PRN Reason: Constipation Methylprednisolone (Solu-Medrol) 40 mg IV Q6 [facility] Last Admin: 08/26/18 06:23 Dose: 40 mg Metoprolol Tartrate (Lopressor (Beta Haris)) 25 mg PO BID [facility] Last Admin: 08/26/18 10:47 Dose: 25 mg Multivitamins (Multivitamin) 1 tablet PO DAILYCM [facility] Last Admin: 08/26/18 10:47 Dose: 1 tablet Nutritional Formula (Lactose Free) (Ensure Enlive) 120 ml PO 4X/DAY [facility] Last Admin: 08/26/18 10:51 Dose: 120 ml Ondansetron HCl (Zofran) 4 mg IV Q8H PRN PRN PRN Reason: NAUSEA Pantoprazole Sodium (Protonix) 20 mg PO DAILY [facility] Last Admin: 08/26/18 10:48 Dose: 20 mg Sodium Chloride () 5 - 30 ml IV UD PRN PRN Reason: SALINE FLUSH Last Admin: 08/26/18 10:49 Dose: 30 ml Code Visit Inpatient E&M: [id number] [facility] L[facility]
[2018-08-26] MEDS: Aspirin E.C. 81 MG Tablet PO (10:46)
[2018-08-26] MEDS: Metoprolol Tartrate 25 MG Tablet PO ×2 (10:47→21:23)
[2018-08-26] MEDS: Multivitamins,Therapeutic Tablet 1 TABLET PO (10:47)
[2018-08-26] MEDS: Enoxaparin 40 MG/0.4 ML Syringe SC (10:47)
[2018-08-26] MEDS: guaiFENesin 1,200 MG Tablet 1200 MG PO ×2 (10:48→21:23)
[2018-08-26] MEDS: Pantoprazole Sodium 20 MG Tablet PO (10:48)
[2018-08-26] MEDS: amLODIPine 10 MG Tablet PO (10:48)
[2018-08-26] MEDS: 0.9% NaCl Peripheral Flush Adult/Peds IV ×2 (10:49→17:13)
--- NOTE | 2018-08-26 10:50 | CASEMGMT ---
RN RUBI NOTE: Intro self and role of RN CM to pt, , and son, who are both in room visiting with pt. Discussed HHC for nursing and PT/OT with them. Pt states he is agreeable to HHC. and son both feel HHC would be helpful as well. Son with several questions about HHC. Questions answered. Provided list of HHC agencies in-network with [facility]. Son states he will look over the list and inform CM once they have made a decision. states she is nervous about pt returning home. Discussion with pt, , and son about SNF. Pt states he prefers to return home, stating, I think I'll be okay but stated may be agreeable to SNF upon discharge if he would need further care. RYAN Lopez, made aware. Instructed pt and family to contact CM with any further questions/concerns/needs. They voice understanding. CM to continue to follow and monitor pt's progress. Cortney ROPER RN, CM
[2018-08-26] MEDS: Furosemide 20 MG/2 ML VIAL IV ×2 (10:52→17:13)
[2018-08-26 19:23] LABS: Mycoplasma Pneum AB IgG < 100 U/mL (0-99); Mycoplasma pneum. AB IgM < 770 U/mL (0-769)
[2018-08-26] MEDS: hydrOXYzine PAM 25 MG Capsule PO (21:23)
[2018-08-27] VITALS (39 sets, daily range): BP systolic 95–133; BP diastolic 58–84; PULSE 71–113; RESP 12–29; TEMP 35.9–36.9; O2SAT 82–94
[2018-08-27] MEDS: Ipratropium/Albuterol Sulfate 3 ML AMPUL.NEB INHALATION ×6 (02:18→22:00)
[2018-08-27] MEDS: Piperacil/Tazobactam 3.375 GM/50 ML ML IV (05:09)
[2018-08-27] MEDS: CHLORHEXIDINE GLUC 2% CLOTH 1 EACH TOWELETTE TOPICAL (05:12)
[2018-08-27] MEDS: 0.9% NaCl Peripheral Flush Adult/Peds IV ×4 (05:17→23:32)
[2018-08-27 06:04] LABS: Anion Gap 11 (5-15); BUN 21 mg/dL (7-18); BUN/Creat Ratio 25.8 RATIO (10-20); Calcium,Total 8.4 mg/dL (8.5-10.1); Chloride 101 mmol/L (98-107); Creatinine, Serum 0.82 mg/dL (0.70-1.30); EST Glomerular Filtration Rate 98 mL/min (>60); Est Glom Filt Rate - Afr Amer 119 mL/min (>60); Estimated Creatinine Clearance 77.84 ml/min; Glucose 152 mg/dL (74-106); Potassium 3.9 mmol/L (3.5-5.1); Sodium Level 140 mmol/L (136-145)
[2018-08-27 06:28] LABS: Absolute Lymphocyte Count 1.81 X10^3/ul (0.83-4.51); Absolute Neutrophil Count 23.6 X10^3/uL (2.0-7.7); Basophil# 0.02 X10^3/uL; Basophil% 0.1 % (0-1); Hematocrit 40.3 % (40-54); Lymphocyte # 1.81 X10^3/ul (4.0); Lymphocyte % 6.8 % (19-41); Mean Corp Hgb Conc 32.3 g/gl (32-36); Mean Corpuscular Hgb 29.5 pg (27.0-32.0); Mean Corpuscular Volume 91.4 fL (80-94); Monocyte# 1.11 X10^3/uL; Monocyte% 4.2 % (0-10); Neutrophil # 23.62 X10^3/uL (2.7-7.7); Neutrophil % 88.4 % (47-70); Platelet Count 406 K/mm3 (150-450); RBC Distribution Width CV 13.4 % (11.6-14.6); RBC Distribution Width SD 44.2 fl (35.1-43.9); Red Blood Count 4.41 M/mm3 (4.6-6.2); White Blood Count 26.7 K/mm3 (4.4-11.0)
[2018-08-27 06:31] LABS: Differential Indicated SCAN CRITERIA MET; POSITIVE COUNT NO; POSITIVE DIFFERENTIAL YES; POSITIVE MORPHOLOGY NO
[2018-08-27 06:46] LABS: Anisocytosis 1+; Crenated RBC 1+; Platelet Estimate SLT INC (ADEQ)
--- NOTE | 2018-08-27 07:03 | PCM.PN.INT ---
Subjective: The patient was seen and examined at the bedside this morning. Events from the last 24 hours have been reviewed. The patient is currently afebrile, hemodynamically stable and maintaining appropriate oxygen saturations on high flow nasal cannula. The patient tolerated BiPAP overnight for approximately 4 hours. He was documented to be overall net -468 mL's yesterday. Creatinine remains stable. The patient does report some interval improvement in his overall breathing quality. However, his oxygenation remains marginal even on 12 L/min of high flow and falls quickly with even minimal amounts of exertion. Objective: The patient's most recent lab work, culture data and imaging studies have all been personally reviewed. Previous chest CT from April 2018 revealed evidence of emphysematous changes along with subpleural reticular changes and focal areas of honeycombing. There was also evidence of traction bronchiectasis. A repeat CT chest (high-resolution) was obtained on August 24 and revealed evidence of significant reticular and groundglass changes bilaterally along with traction bronchiectasis and some subpleural honeycombing, suggestive of fibrotic lung disease. The changes noted on the patient's most recent CT chest had progressed significantly since his last imaging study in April 2018. Surface echocardiogram revealed evidence of stage I diastolic dysfunction with a pulmonary artery systolic pressure estimated to be 44 mmHg. The patient's respiratory viral panel was negative. Strep and urine Legionella antigens were negative. Blood and urine cultures have shown no growth to date. Preliminary respiratory culture appears to be normal respiratory mike. General: Alert, Oriented x3, Cooperative, No apparent distress HEENT: Atraumatic, PERRLA, Normocephalic Oral: No Gingival or Mucosal Lesions/ Ulcerations Neck: Supple, No Nodes, Trachea Midline Lungs: No rhonchi, No wheeze, Diminished, Rales Cardiovascular: Regular rate, Regular Rhythm, Normal S1, Normal S2, No murmurs Abdomen: Bowel Sounds Present, Soft, Non Tender, Non-Distended Extremities: No cyanosis, No edema, Clubbing Skin: No breakdown Musculoskeletal: No Tenderness to Palpation of Joints or Extremities, No Muscle Wasting Lymphatic: No Cervical, Supraclavicular, or Inguinal Adenopathy Neurological: Cranial nerves II-XII grossly intact, Neuro grossly intact Psych/Mental Status: Alert and oriented to time, place, person, mood and affect Vital Signs Temp Pulse Resp BP Pulse Ox 36.2 C L 81 22 H 95/59 L 89 08/27/18 04:00 08/27/18 06:44 08/27/18 06:44 08/27/18 06:00 08/27/18 06:44 Oxygen Flow Rate (L/min) 12 Oxygen Delivery Method Nasal Cannula Weight: 193 lb 1.999 oz Body Mass Index (BMI) 28.9 Intake and Output for Last 24 Hours 08/25/18 08/26/18 08/27/18 23:59 23:59 23:59 Intake Total 385 / 385 2356.1 / 2356.1 193.7 / 193.7 Output Total 2175 / 2175 2825 / 2825 775 / 775 Balance -1790 / -1790 -468.9 / -468.9 -581.3 / -581.3 Labs (Last 48 Hours) 08/24/18 08/25/18 08/25/18 05:27 06:12 09:00 WBC 20.0 H RBC 4.55 L Hgb 13.6 Hct 41.2 MCV 90.5 MCH 29.9 MCHC 33.0 RDW 13.4 RDW Differential 44.0 H Plt Count 322 MPV 9.6 Immature Gran % (Auto) 0.600 Neut % (Auto) 84.9 H Lymph % (Auto) 7.5 L [place] % (Auto) 6.3 Eos % (Auto) 0.4 Baso % (Auto) 0.3 Absolute Neuts (auto) 17.0 H Absolute Lymphs (auto) 1.51 Total Counted Not Reportable Differential Comment Platelet Estimate RBC Morphology Anisocytosis Sodium Potassium Chloride Carbon Dioxide Anion Gap BUN Creatinine Estim Creat Clear Calc Est GFR (MDRD) Af Amer Est GFR (MDRD) Non-Af BUN/Creatinine Ratio Glucose Calcium B-Natriuretic Peptide 177.8 H Mycoplasma pneumon IgG < 100 Mycoplasma pneumon IgM < 770 08/25/18 08/26/18 08/26/18 09:00 04:45 04:45 WBC 21.4 H RBC 4.73 Hgb 14.5 Hct 42.6 MCV 90.1 MCH 30.7 MCHC 34.0 RDW 13.3 RDW Differential 43.3 Plt Count 335 MPV 9.5 Immature Gran % (Auto) 0.400 Neut % (Auto) 89.6 H Lymph % (Auto) 6.6 L [place] % (Auto) 3.4 Eos % (Auto) 0.0 Baso % (Auto) 0.0 Absolute Neuts (auto) 19.2 H Absolute Lymphs (auto) 1.41 Total Counted Not Reportable Differential Comment Platelet Estimate RBC Morphology Anisocytosis Sodium 133 L 136 Potassium 3.8 3.5 Chloride 100 100 Carbon Dioxide 20.0 L 27.0 Anion Gap 13 9 BUN 8 14 Creatinine 0.72 0.73 Estim Creat Clear Calc 63.83 63.83 Est GFR (MDRD) Af Amer 137 136 Est GFR (MDRD) Non-Af 113 112 BUN/Creatinine Ratio 11.1 19.3 Glucose 92 153 H Calcium 8.0 L 8.6 B-Natriuretic Peptide Mycoplasma pneumon IgG Mycoplasma pneumon IgM 08/27/18 08/27/18 05:15 05:15 WBC 26.7 H RBC 4.41 L Hgb 13.0 Hct 40.3 MCV 91.4 MCH 29.5 MCHC 32.3 RDW 13.4 RDW Differential 44.2 H Plt Count 406 MPV 10.0 Immature Gran % (Auto) 0.500 Neut % (Auto) 88.4 H Lymph % (Auto) 6.8 L [place] % (Auto) 4.2 Eos % (Auto) 0.0 Baso % (Auto) 0.1 Absolute Neuts (auto) 23.6 H Absolute Lymphs (auto) 1.81 Total Counted Not Reportable Differential Comment Platelet Estimate SLT INC RBC Morphology 1+ Anisocytosis 1+ Sodium 140 Potassium 3.9 Chloride 101 Carbon Dioxide 28.0 Anion Gap 11 BUN 21 H Creatinine 0.82 Estim Creat Clear Calc 77.84 Est GFR (MDRD) Af Amer 119 Est GFR (MDRD) Non-Af 98 BUN/Creatinine Ratio 25.8 H Glucose 152 H Calcium 8.4 L B-Natriuretic Peptide Mycoplasma pneumon IgG Mycoplasma pneumon IgM Microbiology 08/26/18 10:55 Sputum, Expectorated/Coughed Gram Stain - Final 08/24/18 01:30 Blood Culture (Wb) - Anticubital Right Blood Culture - Preliminary No growth in 48 hours. 08/24/18 01:16 Blood Culture (Wb) - Anticubital Left Blood Culture - Preliminary No growth in 48 hours. 08/24/18 03:16 Urine, Random Urine Culture - Final Culture exhibits no growth. 08/24/18 01:24 Sputum, Expectorated/Coughed Gram Stain - Final 11/19/18 01:24 Sputum, Expectorated/Coughed Respiratory Culture - Final 08/24/18 14:30 Mucosa - Nose Respiratory Panel (PCR) - Final Clinical Impression(s) from Imaging Studies Chest X-Ray 08/24/18 01:19 IMPRESSION: Increasing right-sided airspace consolidation and left-sided airspace consolidation since previous study consistent with pneumonia. Electronically Signed: Carmencita Barron MD at 2:01 EST , Service support , Chest CT 08/24/18 11:20 IMPRESSION: Changes compatible with a progressive pulmonary fibrosis with evidence of honeycombing and bronchiectasis. This is worse in the right hemithorax. Enlarged bilateral axillary lymph nodes. Electronically Signed: Joseph Sheriff MD at 12:53 EST Tel [phone], Service support , Medical Necessity - Tobacco Use Smoking Status: Former smoker Assessment/Plan All Active Problems (Last Reviewed 08/24/18 @ 03:05 by Andrés Mane MD) Community acquired pneumonia (Acute) Hypoxemia (Acute) History of bilateral cataract extraction (Resolved) Status post trigger finger release (Resolved) History of cholecystectomy (Resolved) History of bilateral carpal tunnel release (Resolved) History of prostatectomy (Resolved) History of coronary artery bypass graft x 3 (Resolved) History of colonoscopy (Resolved) RECOMMENDATIONS: 1. Continue antibiotics as ordered. 2. Continue scheduled bronchodilators. 3. Continue IV steroids. 4. Continue scheduled Lasix as ordered. 5. Wean supplemental oxygen as tolerated. Goal oxygen saturation at or above 88%. 6. Encourage aggressive incentive spirometer use and mobilize patient as elevated. 7. If the patient's hypoxia does not begin to improve in the next 24 hours, consideration be given to obtaining a CTA chest to evaluate for PE. IMPRESSIONS: 1. Acute hypoxic respiratory failure/underlying mixed ventilatory defect with exacerbation/bronchiectasis Likely multifactorial in etiology. While the patient did have what appeared to be the beginning stages of an interstitial lung process in April, a high resolution chest CT obtained during this hospitalization revealed significant interval worsening in the patient's fibrotic interstitial lung disease. While I cannot discount the possibility for underlying pulmonary infectious process, the patient has known bronchiectasis which could be contributing to his current cough complaints. In addition, a surface echocardiogram did reveal evidence of diastolic dysfunction and pulmonary hypertension. My clinical concern is that the patient's evolving interstitial lung process could be the consequence of idiopathic pulmonary fibrosis versus fibrosing NSIP, given that the patient was recently identified as having rheumatoid arthritis. Therefore, he will be continued on IV steroids. He will also be continued on antibiotics. BiPAP will continue to be utilized as needed. We will continue to wean supplemental oxygen as tolerated to maintain a saturation at or above 88%. Bronchodilators will be continued. In essence, the patient either has a steroid responsive interstitial lung process or a non-steroid responsive interstitial lung process, with idiopathic pulmonary fibrosis being a non-steroid responsive lung disease. While the patient does have some overlap radiographically between potential NSIP and IPF, my concern is that he does not appear to be responding readily to steroids. If the patient's lung disease is truly related to IPF, there would be no treatment to reverse the fibrotic changes that have already taken place. 2. Heart failure with preserved ejection fraction/pulmonary hypertension The patient's pulmonary hypertension is most likely the consequence of his underlying pulmonary process coupled with hypoxia. Continue current supportive measures as noted above. The patient will be continued on low-dose Lasix. 3. Recently diagnosed rheumatoid arthritis and MGUS The patient was referred to rheumatology from the office of Dr. Hein after he was noted to have a positive rheumatoid factor and anti-CCP antibody. However, the final touch up painter identified an abnormal M protein, which prompted a referral to Dr. Sol of hematology. I personally discussed the patient with Dr. 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 I do feel that it will be imperative that the patient return to the final touch up painter as quickly as possible to be started on therapy for his underlying rheumatologic disease, as this could be contributing to his current lung manifestations. I did call and speak with the patient's final touch up painter, Dr. Moise, at the [facility] ([phone]), who indicated that it was his intention to start the patient on a medication like Imuran, once he was cleared by hematology. We will plan to call the patient's final touch up painter office once the patient has been medically stabilized for discharge to set up an expedited follow-up office visit. He is currently scheduled for a follow-up visit on October 12. Prior history of tobacco abuse/hypertension/GERD Complicates care, management, recovery and prognosis. Continue home medications as indicated. This note was generated with [employer] software. It may contain incorrect words, spelling, and punctuation that were not noted in checking the note before signing. Code Visit Inpatient E&M: 20774 Subs Hosp L3
[2018-08-27] MEDS: Multivitamins,Therapeutic Tablet 1 TABLET PO (08:39)
[2018-08-27] MEDS: amLODIPine 10 MG Tablet PO (08:39)
[2018-08-27] MEDS: Aspirin E.C. 81 MG Tablet PO (08:39)
[2018-08-27] MEDS: Pantoprazole Sodium 20 MG Tablet PO (09:44)
[2018-08-27] MEDS: Metoprolol Tartrate 25 MG Tablet PO ×2 (09:44→21:45)
[2018-08-27] MEDS: guaiFENesin 1,200 MG Tablet 1200 MG PO ×2 (09:44→21:45)
[2018-08-27] MEDS: Enoxaparin 40 MG/0.4 ML Syringe SC (09:44)
[2018-08-27] MEDS: Furosemide 20 MG/2 ML VIAL IV ×2 (09:45→18:29)
--- NOTE | 2018-08-27 10:57 | NURSING ---
Pt placed back on bipap for persistent SPO2 in low 80s
--- NOTE | 2018-08-27 11:25 | PCM.PN.HOSP ---
Patient Problems: Active and Suspected Problems (Last Reviewed 08/24/18 @ 03:05 by Andrés Mane MD) Community acquired pneumonia (Acute) Hypoxemia (Acute) Subjective: Patient was on BiPAP intermittently at night. In the early hours of morning he was on high flow oxygen. Currently on oxygen nasal cannula. Overall patient respiratory status improving. Respiratory rate 16/min no tachypnea. Vitals/I&O's: Vital Signs Temp Pulse Resp BP Pulse Ox 96.7 F L 87 16 107/67 93 08/27/18 08:00 08/27/18 11:00 08/27/18 11:00 08/27/18 11:00 08/27/18 11:00 Oxygen Flow Rate (L/min) 12 Oxygen Delivery Method Bi-pap Weight: 193 lb 1.999 oz Body Mass Index (BMI) 28.9 Intake and Output for Last 24 Hours 08/25/18 08/26/18 08/27/18 23:59 23:59 23:59 Intake Total 385 / 385 2356.1 / 2356.1 193.7 / 193.7 Output Total 2175 / 2175 2825 / 2825 775 / 775 Balance -1790 / -1790 -468.9 / -468.9 -581.3 / -581.3 General: Alert, Oriented x3, Cooperative HEENT: Atraumatic, PERRLA, EOMI, Normocephalic Neck: Supple, No JVD, Negative Carotid Bruits Lungs: Diminished - Air entry has improved., Rhonchi - Inspiratory coarse rhonchi present. Cardiovascular: Regular rate, Regular Rhythm, Normal S1, Normal S2, No murmurs Abdomen: Bowel Sounds Present, Soft, Non Tender, Non-Distended Extremities: No edema, Capillary Refill Less than 3 Seconds Skin: No rashes, No breakdown Musculoskeletal: No Tenderness to Palpation of Joints or Extremities, Arthritic Changes, Muscle Wasting Neurological: Cranial nerves II-XII grossly intact Psych/Mental Status: Normal Affect, Appropriate Microbiology Past 72 Hours 08/26/18 10:55 Sputum, Expectorated/Coughed Gram Stain - Final 08/24/18 01:30 Blood Culture (Wb) - Anticubital Right Blood Culture - Preliminary No growth in 48 hours. 08/24/18 01:16 Blood Culture (Wb) - Anticubital Left Blood Culture - Preliminary No growth in 48 hours. 08/24/18 03:16 Urine, Random Urine Culture - Final Culture exhibits no growth. 08/24/18 01:24 Sputum, Expectorated/Coughed Gram Stain - Final 08/24/18 01:24 Sputum, Expectorated/Coughed Respiratory Culture - Final 08/24/18 14:30 Mucosa - Nose Respiratory Panel (PCR) - Final Laboratory Results 08/24/18 05:27: Mycoplasma pneumon IgG < 100, Mycoplasma pneumon IgM < 770 08/27/18 05:15: WBC 26.7 H, RBC 4.41 L, Hgb 13.0, Hct 40.3, MCV 91.4, MCH 29.5, MCHC 32.3, RDW 13.4, RDW Differential 44.2 H, Plt Count 406, MPV 10.0, Immature Gran % (Auto) 0.500, Neut % (Auto) 88.4 H, Lymph % (Auto) 6.8 L, [place] % (Auto) 4.2, Eos % (Auto) 0.0, Baso % (Auto) 0.1, Absolute Neuts (auto) 23.6 H, Absolute Lymphs (auto) 1.81, Total Counted Not Reportable, Differential Comment , Platelet Estimate SLT INC, RBC Morphology 1+, Anisocytosis 1+ 08/27/18 05:15: Sodium 140, Potassium 3.9, Chloride 101, Carbon Dioxide 28.0, Anion Gap 11, BUN 21 H, Creatinine 0.82, Estim Creat Clear Calc 77.84, Est GFR (MDRD) Af Amer 119, Est GFR (MDRD) Non-Af 98, BUN/Creatinine Ratio 25.8 H, Glucose 152 H, Calcium 8.4 L Current Medications Acetaminophen (Tylenol) 650 mg PO Q4H PRN PRN PRN Reason: FEVER Last Admin: 08/24/18 16:16 Dose: 650 mg Albuterol Sulfate (Ventolin Aerosols) 2.5 mg INHALATION Q2H PRN PRN PRN Reason: SHORTNESS OF BREATH Last Admin: 08/24/18 04:02 Dose: 2.5 mg Albuterol/Ipratropium (Duoneb) 3 ml INHALATION Q4H.RT [facility] Last Admin: 08/27/18 06:44 Dose: 3 ml Amlodipine Besylate (Norvasc) 10 mg PO DAILY [facility] Last Admin: 08/27/18 08:39 Dose: 10 mg Aspirin (Ecotrin) 81 mg PO DAILY@0800 [facility] Last Admin: 08/27/18 08:39 Dose: 81 mg Benzonatate (Tessalon Perle) 200 mg PO TID PRN PRN PRN Reason: COUGH Chlorhexidine Gluconate () 1 each TOPICAL DAILY [facility] Last Admin: 08/27/18 05:12 Dose: 1 each Cholecalciferol (Vitamin D) 5,000 unit PO DAILY [facility] Last Admin: 08/27/18 09:44 Dose: 5,000 unit Enoxaparin Sodium (Lovenox) 40 mg SC DAILY@1000 [facility] Last Admin: 08/27/18 09:44 Dose: 40 mg Furosemide (Lasix) 20 mg IV BID@1000,1800 [facility] Last Admin: 08/27/18 09:45 Dose: 20 mg Guaifenesin (Mucinex) 1,200 mg PO BID [facility] Last Admin: 08/27/18 09:44 Dose: 1,200 mg Hydroxyzine Pamoate (Vistaril Pamoate Capsule) 25 mg PO QHS PRN PRN Reason: SLEEP Last Admin: 08/26/18 21:23 Dose: 25 mg Sodium Chloride () 250 mls @ 15 mls/hr IV .[id number] PRN PRN Reason: SALINE FLUSH Last Admin: 08/25/18 11:39 Dose: 15 mls/hr Lactobacillus Acidophilus (Acidophilus) 1 tablet PO DAILY [facility] Last Admin: 08/27/18 08:39 Dose: 1 tablet Levofloxacin (Levaquin Tablet) 750 mg PO DAILY@0600 [facility] Stop: 08/31/18 06:01 Lorazepam (Ativan) 0.5 mg IV Q6H PRN PRN PRN Reason: ANXIETY Magnesium Hydroxide (Milk Of Magnesia) 30 ml PO DAILY PRN PRN Reason: Constipation Methylprednisolone (Solu-Medrol) 40 mg IV Q6 [facility] Last Admin: 08/27/18 05:10 Dose: 40 mg Metoprolol Tartrate (Lopressor (Beta Haris)) 25 mg PO BID [facility] Last Admin: 08/27/18 09:44 Dose: 25 mg [facility] Last Admin: 08/27/18 08:39 Dose: 1 tablet Nutritional Formula (Lactose Free) (Ensure Enlive) 120 ml PO 4X/DAY [facility] Last Admin: 08/27/18 09:45 Dose: Not Given Ondansetron HCl (Zofran) 4 mg IV Q8H PRN PRN PRN Reason: NAUSEA Pantoprazole Sodium (Protonix) 20 mg PO DAILY [facility] Last Admin: 08/27/18 09:44 Dose: 20 mg Sodium Chloride () 5 - 30 ml IV UD PRN PRN Reason: SALINE FLUSH Last Admin: 08/27/18 09:45 Dose: 10 ml Medical Necessity - Tobacco Use Smoking Status: Former smoker Assessment/Plan All Active Problems (Last Reviewed 08/24/18 @ 03:05 by Andrés Mane MD) Community acquired pneumonia (Acute) Hypoxemia (Acute) History of bilateral cataract extraction (Resolved) Status post trigger finger release (Resolved) History of cholecystectomy (Resolved) History of bilateral carpal tunnel release (Resolved) History of prostatectomy (Resolved) History of coronary artery bypass graft x 3 (Resolved) History of colonoscopy (Resolved) The patient is a 73 year old M with a significant history of former tobacco abuse; CAD status post CABG; hypertension;HLD; COPD, not on home oxygen, recent diagnosis of M protein positive, MGUS and rheumatoid arthritis who presented with progressively worsening shortness of breath that started in April of this year and further worsened in the past week. 1. Acute hypoxic respiratory failure probably multifactorial secondary to mixed ventilatory defect, interstitial lung disease/rheumatoid arthritis, COPD, traction bronchiectasis possible interstitial pneumonia: Patient initially was admitted in PCU but was transferred to ICU after he had hypoxia, tachypnea and respiratory distress. ABG 7.52/26 0.8/50 on 6 L of oxygen through nasal cannula. Currently on 40 FiO2 BiPAP and pulse ox 90-92%. Try to wean off BiPAP as per patient tolerates gradually. Discussed with the transfer and line up worker. Continue on IV Levaquin. Vancomycin discontinued. The patient was started on IV Solu-Medrol by Dr. Silva after discussion with crm analyst. Clinical concern of idiopathic pulmonary fibrosis versus fibrosing NSIP. Preliminary sputum culture shows gram-positive cocci in chains and clusters. Urinary antigens and respiratory panel are negative. MRSA nasal screen negative. Mycoplasma antibody negative. HRCT done on 08/24 showed progression of fibrosis/scarring, diffuse in nature with honeycombing and bronchiectasis, worse in the right hemithorax. Continue other supportive treatment including bronchodilator, Mucinex, incentive spirometry and chest physiotherapy 2. MGUS: Patient had M protein disease which came out to MGUS. Dr. Sol. 3. Cardiac conditions include coronary artery status post CABG: Continue aspirin and metoprolol number cardiac medications. 4. Rheumatoid arthritis: Patient will need to follow with the director of software engineering, Dr Moise after discharge. There is Imuran anticipation of starting on as an outpatient by crm analyst 5. Hypertension: Blood pressure is controlled. GERD: On PPI DVT prophylaxis: On Lovenox. Hospital course, patient's disease condition and management discussed with the patient's son near the bedside. Clinical Impression(s) from Imaging Studies Chest X-Ray 08/24/18 01:19 IMPRESSION: Increasing right-sided airspace consolidation and left-sided airspace consolidation since previous study consistent with pneumonia. Chest CT 08/24/18 11:20 IMPRESSION: Changes compatible with a progressive pulmonary fibrosis with evidence of honeycombing and bronchiectasis. This is worse in the right hemithorax. Enlarged bilateral axillary lymph nodes. Microbiology Past 72 Hours 08/26/18 10:55 Sputum, Expectorated/Coughed Gram Stain - Final 08/24/18 01:30 Blood Culture (Wb) - Anticubital Right Blood Culture - Preliminary No growth in 48 hours. 08/24/18 01:16 Blood Culture (Wb) - Anticubital Left Blood Culture - Preliminary No growth in 48 hours. 08/24/18 03:16 Urine, Random Urine Culture - Final Culture exhibits no growth. 08/24/18 01:24 Sputum, Expectorated/Coughed Gram Stain - Final 08/24/18 01:24 Sputum, Expectorated/Coughed Respiratory Culture - Final 08/24/18 14:30 Mucosa - Nose Respiratory Panel (PCR) - Final Laboratory Results 08/24/18 05:27: Mycoplasma pneumon IgG < 100, Mycoplasma pneumon IgM < 770 08/27/18 05:15: WBC 26.7 H, RBC 4.41 L, Hgb 13.0, Hct 40.3, MCV 91.4, MCH 29.5, MCHC 32.3, RDW 13.4, RDW Differential 44.2 H, Plt Count 406, MPV 10.0, Immature Gran % (Auto) 0.500, Neut % (Auto) 88.4 H, Lymph % (Auto) 6.8 L, [place] % (Auto) 4.2, Eos % (Auto) 0.0, Baso % (Auto) 0.1, Absolute Neuts (auto) 23.6 H, Absolute Lymphs (auto) 1.81, Total Counted Not Reportable, Differential Comment , Platelet Estimate SLT INC, RBC Morphology 1+, Anisocytosis 1+ 08/27/18 05:15: Sodium 140, Potassium 3.9, Chloride 101, Carbon Dioxide 28.0, Anion Gap 11, BUN 21 H, Creatinine 0.82, Estim Creat Clear Calc 77.84, Est GFR (MDRD) Af Amer 119, Est GFR (MDRD) Non-Af 98, BUN/Creatinine Ratio 25.8 H, Glucose 152 H, Calcium 8.4 L Active Medications Acetaminophen (Tylenol) 650 mg PO Q4H PRN PRN PRN Reason: FEVER Last Admin: 08/24/18 16:16 Dose: 650 mg Albuterol Sulfate (Ventolin Aerosols) 2.5 mg INHALATION Q2H PRN PRN PRN Reason: SHORTNESS OF BREATH Last Admin: 08/24/18 04:02 Dose: 2.5 mg Albuterol/Ipratropium (Duoneb) 3 ml INHALATION Q4H.RT [facility] Last Admin: 08/27/18 06:44 Dose: 3 ml Amlodipine Besylate (Norvasc) 10 mg PO DAILY [facility] Last Admin: 08/27/18 08:39 Dose: 10 mg Aspirin (Ecotrin) 81 mg PO DAILY@0800 [facility] Last Admin: 08/27/18 08:39 Dose: 81 mg Benzonatate (Tessalon Perle) 200 mg PO TID PRN PRN PRN Reason: COUGH Chlorhexidine Gluconate () 1 each TOPICAL DAILY [facility] Last Admin: 08/27/18 05:12 Dose: 1 each Cholecalciferol (Vitamin D) 5,000 unit PO DAILY [facility] Last Admin: 08/27/18 09:44 Dose: 5,000 unit Enoxaparin Sodium (Lovenox) 40 mg SC DAILY@1000 [facility] Last Admin: 08/27/18 09:44 Dose: 40 mg Furosemide (Lasix) 20 mg IV BID@1000,1800 [facility] Last Admin: 08/27/18 09:45 Dose: 20 mg Guaifenesin (Mucinex) 1,200 mg PO BID [facility] Last Admin: 08/27/18 09:44 Dose: 1,200 mg Hydroxyzine Pamoate (Vistaril Pamoate Capsule) 25 mg PO QHS PRN PRN Reason: SLEEP Last Admin: 08/26/18 21:23 Dose: 25 mg Sodium Chloride () 250 mls @ 15 mls/hr IV .[id number] PRN PRN Reason: SALINE FLUSH Last Admin: 08/25/18 11:39 Dose: 15 mls/hr Lactobacillus Acidophilus (Acidophilus) 1 tablet PO DAILY [facility] Last Admin: 08/27/18 08:39 Dose: 1 tablet Levofloxacin (Levaquin Tablet) 750 mg PO DAILY@0600 [facility] Stop: 08/31/18 06:01 Lorazepam (Ativan) 0.5 mg IV Q6H PRN PRN PRN Reason: ANXIETY Magnesium Hydroxide (Milk Of Magnesia) 30 ml PO DAILY PRN PRN Reason: Constipation Methylprednisolone (Solu-Medrol) 40 mg IV Q6 [facility] Last Admin: 08/27/18 05:10 Dose: 40 mg Metoprolol Tartrate (Lopressor (Beta Haris)) 25 mg PO BID [facility] Last Admin: 08/27/18 09:44 Dose: 25 mg [facility] Last Admin: 08/27/18 08:39 Dose: 1 tablet Nutritional Formula (Lactose Free) (Ensure Enlive) 120 ml PO 4X/DAY [facility] Last Admin: 08/27/18 09:45 Dose: Not Given Ondansetron HCl (Zofran) 4 mg IV Q8H PRN PRN PRN Reason: NAUSEA Pantoprazole Sodium (Protonix) 20 mg PO DAILY [facility] Last Admin: 08/27/18 09:44 Dose: 20 mg Sodium Chloride () 5 - 30 ml IV UD PRN PRN Reason: SALINE FLUSH Last Admin: 08/27/18 09:45 Dose: 10 ml Code Visit Inpatient E&M: [id number] [facility]
--- NOTE | 2018-08-27 11:34 | PN_ITS ---
Patient Problems: Active and Suspected Problems (Last Reviewed 08/24/18 @ 03:05 by Andrés Mane MD) Community acquired pneumonia (Acute) Hypoxemia (Acute) Subjective: Patient was on BiPAP intermittently at night. In the early hours of morning he was on high flow oxygen. Currently on oxygen nasal cannula. Overall patient respiratory status improving. Respiratory rate 16/min no tachypnea. Vitals/I&O's: Vital Signs Temp Pulse Resp BP Pulse Ox 96.7 F L 87 16 107/67 93 08/27/18 08:00 08/27/18 11:00 08/27/18 11:00 08/27/18 11:00 08/27/18 11:00 Oxygen Flow Rate (L/min) 12 Oxygen Delivery Method Bi-pap Weight: 193 lb 1.999 oz Body Mass Index (BMI) 28.9 Intake and Output for Last 24 Hours 08/25/18 08/26/18 08/27/18 23:59 23:59 23:59 Intake Total 385 / 385 2356.1 / 2356.1 193.7 / 193.7 Output Total 2175 / 2175 2825 / 2825 775 / 775 Balance -1790 / -1790 -468.9 / -468.9 -581.3 / -581.3 General: Alert, Oriented x3, Cooperative HEENT: Atraumatic, PERRLA, EOMI, Normocephalic Neck: Supple, No JVD, Negative Carotid Bruits Lungs: Diminished - Air entry has improved., Rhonchi - Inspiratory coarse rhonchi present. Cardiovascular: Regular rate, Regular Rhythm, Normal S1, Normal S2, No murmurs Abdomen: Bowel Sounds Present, Soft, Non Tender, Non-Distended Extremities: No edema, Capillary Refill Less than 3 Seconds Skin: No rashes, No breakdown Musculoskeletal: No Tenderness to Palpation of Joints or Extremities, Arthritic Changes, Muscle Wasting Neurological: Cranial nerves II-XII grossly intact Psych/Mental Status: Normal Affect, Appropriate Microbiology Past 72 Hours 08/26/18 10:55 Sputum, Expectorated/Coughed Gram Stain - Final 08/24/18 01:30 Blood Culture (Wb) - Anticubital Right Blood Culture - Preliminary No growth in 48 hours. 08/24/18 01:16 Blood Culture (Wb) - Anticubital Left Blood Culture - Preliminary No growth in 48 hours. 08/24/18 03:16 Urine, Random Urine Culture - Final Culture exhibits no growth. 08/24/18 01:24 Sputum, Expectorated/Coughed Gram Stain - Final 08/24/18 01:24 Sputum, Expectorated/Coughed Respiratory Culture - Final 08/24/18 14:30 Mucosa - Nose Respiratory Panel (PCR) - Final Laboratory Results 08/24/18 05:27: Mycoplasma pneumon IgG < 100, Mycoplasma pneumon IgM < 770 08/27/18 05:15: WBC 26.7 H, RBC 4.41 L, Hgb 13.0, Hct 40.3, MCV 91.4, MCH 29.5, MCHC 32.3, RDW 13.4, RDW Differential 44.2 H, Plt Count 406, MPV 10.0, Immature Gran % (Auto) 0.500, Neut % (Auto) 88.4 H, Lymph % (Auto) 6.8 L, Catron % (Auto) 4.2, Eos % (Auto) 0.0, Baso % (Auto) 0.1, Absolute Neuts (auto) 23.6 H, Absolute Lymphs (auto) 1.81, Total Counted Not Reportable, Differential Comment , Platelet Estimate SLT INC, RBC Morphology 1+, Anisocytosis 1+ 08/27/18 05:15: Sodium 140, Potassium 3.9, Chloride 101, Carbon Dioxide 28.0, Anion Gap 11, BUN 21 H, Creatinine 0.82, Estim Creat Clear Calc 77.84, Est GFR (MDRD) Af Amer 119, Est GFR (MDRD) Non-Af 98, BUN/Creatinine Ratio 25.8 H, Glucose 152 H, Calcium 8.4 L Current Medications Acetaminophen (Tylenol) 650 mg PO Q4H PRN PRN PRN Reason: FEVER Last Admin: 08/24/18 16:16 Dose: 650 mg Albuterol Sulfate (Ventolin Aerosols) 2.5 mg INHALATION Q2H PRN PRN PRN Reason: SHORTNESS OF BREATH Last Admin: 08/24/18 04:02 Dose: 2.5 mg Albuterol/Ipratropium (Duoneb) 3 ml INHALATION Q4H.RT [facility] Last Admin: 08/27/18 06:44 Dose: 3 ml Amlodipine Besylate (Norvasc) 10 mg PO DAILY [facility] Last Admin: 08/27/18 08:39 Dose: 10 mg Aspirin (Ecotrin) 81 mg PO DAILY@0800 [facility] Last Admin: 08/27/18 08:39 Dose: 81 mg Benzonatate (Tessalon Perle) 200 mg PO TID PRN PRN PRN Reason: COUGH Chlorhexidine Gluconate () 1 each TOPICAL DAILY [facility] Last Admin: 08/27/18 05:12 Dose: 1 each Cholecalciferol (Vitamin D) 5,000 unit PO DAILY [facility] Last Admin: 08/27/18 09:44 Dose: 5,000 unit Enoxaparin Sodium (Lovenox) 40 mg SC DAILY@1000 [facility] Last Admin: 08/27/18 09:44 Dose: 40 mg Furosemide (Lasix) 20 mg IV BID@1000,1800 [facility] Last Admin: 08/27/18 09:45 Dose: 20 mg Guaifenesin (Mucinex) 1,200 mg PO BID [facility] Last Admin: 08/27/18 09:44 Dose: 1,200 mg Hydroxyzine Pamoate (Vistaril Pamoate Capsule) 25 mg PO QHS PRN PRN Reason: SLEEP Last Admin: 08/26/18 21:23 Dose: 25 mg Sodium Chloride () 250 mls @ 15 mls/hr IV .[id number] PRN PRN Reason: SALINE FLUSH Last Admin: 08/25/18 11:39 Dose: 15 mls/hr Lactobacillus Acidophilus (Acidophilus) 1 tablet PO DAILY [facility] Last Admin: 08/27/18 08:39 Dose: 1 tablet Levofloxacin (Levaquin Tablet) 750 mg PO DAILY@0600 [facility] Stop: 08/31/18 06:01 Lorazepam (Ativan) 0.5 mg IV Q6H PRN PRN PRN Reason: ANXIETY Magnesium Hydroxide (Milk Of Magnesia) 30 ml PO DAILY PRN PRN Reason: Constipation Methylprednisolone (Solu-Medrol) 40 mg IV Q6 [facility] Last Admin: 08/27/18 05:10 Dose: 40 mg Metoprolol Tartrate (Lopressor (Beta Haris)) 25 mg PO BID [facility] Last Admin: 08/27/18 09:44 Dose: 25 mg [facility]it[facility] Last Admin: 08/27/18 08:39 Dose: 1 tablet Nutritional Formula (Lactose Free) (Ensure Enlive) 120 ml PO 4X/DAY [facility] Last Admin: 08/27/18 09:45 Dose: Not Given Ondansetron HCl (Zofran) 4 mg IV Q8H PRN PRN PRN Reason: NAUSEA Pantoprazole Sodium (Protonix) 20 mg PO DAILY [facility] Last Admin: 08/27/18 09:44 Dose: 20 mg Sodium Chloride () 5 - 30 ml IV UD PRN PRN Reason: SALINE FLUSH Last Admin: 08/27/18 09:45 Dose: 10 ml Medical Necessity - Tobacco Use Smoking Status: Former smoker Assessment/Plan All Active Problems (Last Reviewed 08/24/18 @ 03:05 by Andrés Mane MD) Community acquired pneumonia (Acute) Hypoxemia (Acute) History of bilateral cataract extraction (Resolved) Status post trigger finger release (Resolved) History of cholecystectomy (Resolved) History of bilateral carpal tunnel release (Resolved) History of prostatectomy (Resolved) History of coronary artery bypass graft x 3 (Resolved) History of colonoscopy (Resolved) The patient is a 73 year old M with a significant history of former tobacco abuse; CAD status post CABG; hypertension;HLD; COPD, not on home oxygen, recent diagnosis of M protein positive, MGUS and rheumatoid arthritis who presented with progressively worsening shortness of breath that started in April of this year and further worsened in the past week. 1. Acute hypoxic respiratory failure probably multifactorial secondary to mixed ventilatory defect, interstitial lung disease/rheumatoid arthritis, COPD, traction bronchiectasis possible interstitial pneumonia: Patient initially was admitted in PCU but was transferred to ICU after he had hypoxia, tachypnea and respiratory distress. ABG 7.52/26 0.8/50 on 6 L of oxygen through nasal cannula. Currently on 40 FiO2 BiPAP and pulse ox 90-92%. Try to wean off BiPAP as per patient tolerates gradually. Discussed with the back strip machine operator. Continue on IV Levaquin. Vancomycin discontinued. The patient was started on IV Solu-Medrol by Dr. Silva after discussion with cigarette roller. Clinical concern of idiopathic pulmonary fibrosis versus fibrosing NSIP. Preliminary sputum culture shows gram-positive cocci in chains and clusters. Urinary antigens and respiratory panel are negative. MRSA nasal screen negative. Mycoplasma antibody negative. HRCT done on 08/24 showed progression of fibrosis/scarring, diffuse in nature with honeycombing and bronchiectasis, worse in the right hemithorax. Continue other supportive treatment including bronchodilator, Mucinex, incentive spirometry and chest physiotherapy 2. MGUS: Patient had M protein disease which came out to MGUS. Dr. Sol. 3. Cardiac conditions include coronary artery status post CABG: Continue aspirin and metoprolol number cardiac medications. 4. Rheumatoid arthritis: Patient will need to follow with the wildlife technician, Dr Moise after discharge. There is Imuran anticipation of starting on as an outpatient by cigarette roller 5. Hypertension: Blood pressure is controlled. GERD: On PPI DVT prophylaxis: On Lovenox. Hospital course, patient's disease condition and management discussed with the patient's son near the bedside. Clinical Impression(s) from Imaging Studies Chest X-Ray 08/24/18 01:19 IMPRESSION: Increasing right-sided airspace consolidation and left-sided airspace consolidation since previous study consistent with pneumonia. Chest CT 08/24/18 11:20 IMPRESSION: Changes compatible with a progressive pulmonary fibrosis with evidence of honeycombing and bronchiectasis. This is worse in the right hemithorax. Enlarged bilateral axillary lymph nodes. Microbiology Past 72 Hours 08/26/18 10:55 Sputum, Expectorated/Coughed Gram Stain - Final 08/24/18 01:30 Blood Culture (Wb) - Anticubital Right Blood Culture - Preliminary No growth in 48 hours. 08/24/18 01:16 Blood Culture (Wb) - Anticubital Left Blood Culture - Preliminary No growth in 48 hours. 08/24/18 03:16 Urine, Random Urine Culture - Final Culture exhibits no growth. 08/24/18 01:24 Sputum, Expectorated/Coughed Gram Stain - Final 08/24/18 01:24 Sputum, Expectorated/Coughed Respiratory Culture - Final 08/24/18 14:30 Mucosa - Nose Respiratory Panel (PCR) - Final Laboratory Results 08/24/18 05:27: Mycoplasma pneumon IgG < 100, Mycoplasma pneumon IgM < 770 08/27/18 05:15: WBC 26.7 H, RBC 4.41 L, Hgb 13.0, Hct 40.3, MCV 91.4, MCH 29.5, MCHC 32.3, RDW 13.4, RDW Differential 44.2 H, Plt Count 406, MPV 10.0, Immature Gran % (Auto) 0.500, Neut % (Auto) 88.4 H, Lymph % (Auto) 6.8 L, Catron % (Auto) 4.2, Eos % (Auto) 0.0, Baso % (Auto) 0.1, Absolute Neuts (auto) 23.6 H, Absolute Lymphs (auto) 1.81, Total Counted Not Reportable, Differential Comment , Platelet Estimate SLT INC, RBC Morphology 1+, Anisocytosis 1+ 08/27/18 05:15: Sodium 140, Potassium 3.9, Chloride 101, Carbon Dioxide 28.0, Anion Gap 11, BUN 21 H, Creatinine 0.82, Estim Creat Clear Calc 77.84, Est GFR (MDRD) Af Amer 119, Est GFR (MDRD) Non-Af 98, BUN/Creatinine Ratio 25.8 H, Glucose 152 H, Calcium 8.4 L Active Medications Acetaminophen (Tylenol) 650 mg PO Q4H PRN PRN PRN Reason: FEVER Last Admin: 08/24/18 16:16 Dose: 650 mg Albuterol Sulfate (Ventolin Aerosols) 2.5 mg INHALATION Q2H PRN PRN PRN Reason: SHORTNESS OF BREATH Last Admin: 08/24/18 04:02 Dose: 2.5 mg Albuterol/Ipratropium (Duoneb) 3 ml INHALATION Q4H.RT [facility] Last Admin: 08/27/18 06:44 Dose: 3 ml Amlodipine Besylate (Norvasc) 10 mg PO DAILY [facility] Last Admin: 08/27/18 08:39 Dose: 10 mg Aspirin (Ecotrin) 81 mg PO DAILY@0800 [facility] Last Admin: 08/27/18 08:39 Dose: 81 mg Benzonatate (Tessalon Perle) 200 mg PO TID PRN PRN PRN Reason: COUGH Chlorhexidine Gluconate () 1 each TOPICAL DAILY [facility] Last Admin: 08/27/18 05:12 Dose: 1 each Cholecalciferol (Vitamin D) 5,000 unit PO DAILY [facility] Last Admin: 08/27/18 09:44 Dose: 5,000 unit Enoxaparin Sodium (Lovenox) 40 mg SC DAILY@1000 [facility] Last Admin: 08/27/18 09:44 Dose: 40 mg Furosemide (Lasix) 20 mg IV BID@1000,1800 [facility] Last Admin: 08/27/18 09:45 Dose: 20 mg Guaifenesin (Mucinex) 1,200 mg PO BID [facility] Last Admin: 08/27/18 09:44 Dose: 1,200 mg Hydroxyzine Pamoate (Vistaril Pamoate Capsule) 25 mg PO QHS PRN PRN Reason: SLEEP Last Admin: 08/26/18 21:23 Dose: 25 mg Sodium Chloride () 250 mls @ 15 mls/hr IV .[id number] PRN PRN Reason: SALINE FLUSH Last Admin: 08/25/18 11:39 Dose: 15 mls/hr Lactobacillus Acidophilus (Acidophilus) 1 tablet PO DAILY [facility] Last Admin: 08/27/18 08:39 Dose: 1 tablet Levofloxacin (Levaquin Tablet) 750 mg PO DAILY@0600 [facility] Stop: 08/31/18 06:01 Lorazepam (Ativan) 0.5 mg IV Q6H PRN PRN PRN Reason: ANXIETY Magnesium Hydroxide (Milk Of Magnesia) 30 ml PO DAILY PRN PRN Reason: Constipation Methylprednisolone (Solu-Medrol) 40 mg IV Q6 [facility] Last Admin: 08/27/18 05:10 Dose: 40 mg Metoprolol Tartrate (Lopressor (Beta Haris)) 25 mg PO BID [facility] Last Admin: 08/27/18 09:44 Dose: 25 mg [facility]it[facility] ([facility]) [facility] Last Admin: 08/27/18 08:39 Dose: 1 tablet Nutritional Formula (Lactose Free) (Ensure Enlive) 120 ml PO 4X/DAY [facility] Last Admin: 08/27/18 09:45 Dose: Not Given Ondansetron HCl (Zofran) 4 mg IV Q8H PRN PRN PRN Reason: NAUSEA Pantoprazole Sodium (Protonix) 20 mg PO DAILY [facility] Last Admin: 08/27/18 09:44 Dose: 20 mg Sodium Chloride () 5 - 30 ml IV UD PRN PRN Reason: SALINE FLUSH Last Admin: 08/27/18 09:45 Dose: 10 ml Code Visit Inpatient E&M: 04858 [facility] Hosp L3
[2018-08-27] MEDS: levoFLOXacin 750 MG Tablet PO (12:51)
[2018-08-28] VITALS (36 sets, daily range): BP systolic 105–142; BP diastolic 66–91; PULSE 73–110; RESP 16–26; TEMP 36.2–36.8; O2SAT 87–95
[2018-08-28] MEDS: Ipratropium/Albuterol Sulfate 3 ML AMPUL.NEB INHALATION ×6 (03:15→22:30)
[2018-08-28] MEDS: levoFLOXacin 750 MG Tablet PO (05:08)
[2018-08-28] MEDS: 0.9% NaCl Peripheral Flush Adult/Peds IV ×6 (05:08→18:55)
[2018-08-28 05:24] LABS: Absolute Lymphocyte Count 1.33 X10^3/ul (0.83-4.51); Absolute Neutrophil Count 17.9 X10^3/uL (2.0-7.7); Basophil# 0.01 X10^3/uL; Hematocrit 40.6 % (40-54); Hemoglobin 13.3 g/dl (13.0-16.5); Lymphocyte # 1.33 X10^3/ul (4.0); Lymphocyte % 6.4 % (19-41); Mean Corp Hgb Conc 32.8 g/gl (32-36); Mean Corpuscular Volume 91.4 fL (80-94); Mean Platelet Vol. 9.7 fl (6.2-12.0); Monocyte# 1.31 X10^3/uL; Monocyte% 6.3 % (0-10); Neutrophil # 17.93 X10^3/uL (2.7-7.7); Neutrophil % 86.5 % (47-70); POSITIVE COUNT NO; POSITIVE DIFFERENTIAL NO; POSITIVE MORPHOLOGY NO; Platelet Count 398 K/mm3 (150-450); RBC Distribution Width CV 13.3 % (11.6-14.6); RBC Distribution Width SD 43.7 fl (35.1-43.9); Red Blood Count 4.44 M/mm3 (4.6-6.2); White Blood Count 20.7 K/mm3 (4.4-11.0)
[2018-08-28 05:35] LABS: Anion Gap 10 (5-15); BUN 20 mg/dL (7-18); BUN/Creat Ratio 24.1 RATIO (10-20); Calcium,Total 8.3 mg/dL (8.5-10.1); Chloride 100 mmol/L (98-107); Creatinine, Serum 0.83 mg/dL (0.70-1.30); EST Glomerular Filtration Rate 96 mL/min (>60); Est Glom Filt Rate - Afr Amer 116 mL/min (>60); Glucose 182 mg/dL (74-106); Sodium Level 138 mmol/L (136-145)
--- NOTE | 2018-08-28 06:48 | PCM.PN.INT ---
Subjective: The patient was seen and examined at the bedside this morning. Events from the last 24 hours have been reviewed. The patient is currently afebrile, hemodynamically stable and maintaining marginal oxygen saturations on 12 L/min high flow nasal cannula. The patient remains hypoxic both at rest and with even minimal amounts of physical exertion. The patient was overall net -290 mL's yesterday. He is now overall net -1.5 L for the admission. Creatinine remains stable. Unfortunately, the patient has a listed allergy to contrast media, with angioedema documented as his reaction. This would preclude our ability to obtain a CTA chest. Objective: The patient's most recent lab work, culture data and imaging studies have all been personally reviewed. Previous chest CT from April 2018 revealed evidence of emphysematous changes along with subpleural reticular changes and focal areas of honeycombing. There was also evidence of traction bronchiectasis. A repeat CT chest (high-resolution) was obtained on August 24 and revealed evidence of significant reticular and groundglass changes bilaterally along with traction bronchiectasis and some subpleural honeycombing, suggestive of fibrotic lung disease. The changes noted on the patient's most recent CT chest had progressed significantly since his last imaging study in April 2018. Surface echocardiogram revealed evidence of stage I diastolic dysfunction with a pulmonary artery systolic pressure estimated to be 44 mmHg. The patient's respiratory viral panel was negative. Strep and urine Legionella antigens were negative. Blood and urine cultures have shown no growth to date. Preliminary respiratory culture appears to be normal respiratory mike. General: Alert, Cooperative, No apparent distress HEENT: Atraumatic, PERRLA, Normocephalic Oral: No Gingival or Mucosal Lesions/ Ulcerations Neck: Supple, No Nodes, Trachea Midline Lungs: No rhonchi, No wheeze, Diminished, Rales Cardiovascular: Regular rate, Regular Rhythm, Normal S1, Normal S2, No murmurs Abdomen: Bowel Sounds Present, Soft, Non Tender Extremities: No cyanosis, No edema, Clubbing Skin: No rashes, No breakdown Musculoskeletal: No Muscle Wasting Lymphatic: No Cervical, Supraclavicular, or Inguinal Adenopathy Neurological: Cranial nerves II-XII grossly intact, Neuro grossly intact Psych/Mental Status: Normal Affect, Appropriate Vital Signs Temp Pulse Resp BP Pulse Ox 36.7 C 84 18 121/74 H 92 08/28/18 00:00 08/28/18 06:41 08/28/18 06:41 08/28/18 06:00 08/28/18 06:41 Oxygen Flow Rate (L/min) 12 Oxygen Delivery Method Nasal Cannula Weight: 193 lb 12.581 oz Body Mass Index (BMI) 28.9 Intake and Output for Last 24 Hours 08/26/18 08/27/18 08/28/18 23:59 23:59 23:59 Intake Total 2356.1 / 2356.1 2284.7 / 2284.7 650 / 650 Output Total 2825 / 2825 2575 / 2575 675 / 675 Balance -468.9 / -468.9 -290.3 / -290.3 -25 / -25 Labs (Last 48 Hours) 08/24/18 08/27/18 08/27/18 05:27 05:15 05:15 WBC 26.7 H RBC 4.41 L Hgb 13.0 Hct 40.3 MCV 91.4 MCH 29.5 MCHC 32.3 RDW 13.4 RDW Differential 44.2 H Plt Count 406 MPV 10.0 Immature Gran % (Auto) 0.500 Neut % (Auto) 88.4 H Lymph % (Auto) 6.8 L Tompkins % (Auto) 4.2 Eos % (Auto) 0.0 Baso % (Auto) 0.1 Absolute Neuts (auto) 23.6 H Absolute Lymphs (auto) 1.81 Total Counted Not Reportable Differential Comment Platelet Estimate SLT INC RBC Morphology 1+ Anisocytosis 1+ Sodium 140 Potassium 3.9 Chloride 101 Carbon Dioxide 28.0 Anion Gap 11 BUN 21 H Creatinine 0.82 Estim Creat Clear Calc 77.84 Est GFR (MDRD) Af Amer 119 Est GFR (MDRD) Non-Af 98 BUN/Creatinine Ratio 25.8 H Glucose 152 H Calcium 8.4 L Mycoplasma pneumon IgG < 100 Mycoplasma pneumon IgM < 770 08/28/18 08/28/18 05:15 05:15 WBC 20.7 H RBC 4.44 L Hgb 13.3 Hct 40.6 MCV 91.4 MCH 30.0 MCHC 32.8 RDW 13.3 RDW Differential 43.7 Plt Count 398 MPV 9.7 Immature Gran % (Auto) 0.800 Neut % (Auto) 86.5 H Lymph % (Auto) 6.4 L Tompkins % (Auto) 6.3 Eos % (Auto) 0.0 Baso % (Auto) 0.0 Absolute Neuts (auto) 17.9 H Absolute Lymphs (auto) 1.33 Total Counted Not Reportable Differential Comment Platelet Estimate RBC Morphology Anisocytosis Sodium 138 Potassium 4.0 Chloride 100 Carbon Dioxide 28.0 Anion Gap 10 BUN 20 H Creatinine 0.83 Estim Creat Clear Calc 76.90 Est GFR (MDRD) Af Amer 116 Est GFR (MDRD) Non-Af 96 BUN/Creatinine Ratio 24.1 H Glucose 182 H Calcium 8.3 L Mycoplasma pneumon IgG Mycoplasma pneumon IgM Microbiology 08/26/18 10:55 Sputum, Expectorated/Coughed Gram Stain - Final 08/26/18 10:55 Sputum, Expectorated/Coughed Respiratory Culture - Preliminary Appears to be normal respiratory mike. Further studies to follow. 08/24/18 01:30 Blood Culture (Wb) - Anticubital Right Blood Culture - Preliminary No growth in 48 hours. 08/24/18 01:16 Blood Culture (Wb) - Anticubital Left Blood Culture - Preliminary No growth in 48 hours. 08/24/18 03:16 Urine, Random Urine Culture - Final Culture exhibits no growth. 08/24/18 01:24 Sputum, Expectorated/Coughed Gram Stain - Final 08/24/18 01:24 Sputum, Expectorated/Coughed Respiratory Culture - Final Clinical Impression(s) from Imaging Studies Chest X-Ray 08/24/18 01:19 IMPRESSION: Increasing right-sided airspace consolidation and left-sided airspace consolidation since previous study consistent with pneumonia. Electronically Signed: Carmencita Barron MD at 2:01 EST , Service support , Chest CT 08/24/18 11:20 IMPRESSION: Changes compatible with a progressive pulmonary fibrosis with evidence of honeycombing and bronchiectasis. This is worse in the right hemithorax. Enlarged bilateral axillary lymph nodes. Electronically Signed: Joseph Sheriff MD at 12:53 EST Tel [phone], Service support , Medical Necessity - Tobacco Use Smoking Status: Former smoker Assessment/Plan All Active Problems (Last Reviewed 08/24/18 @ 03:05 by Andrés Mane MD) Community acquired pneumonia (Acute) Hypoxemia (Acute) History of bilateral cataract extraction (Resolved) Status post trigger finger release (Resolved) History of cholecystectomy (Resolved) History of bilateral carpal tunnel release (Resolved) History of prostatectomy (Resolved) History of coronary artery bypass graft x 3 (Resolved) History of colonoscopy (Resolved) RECOMMENDATIONS: 1. Continue antibiotics as ordered to complete treatment course. 2. Continue scheduled bronchodilators. 3. Continue IV steroids. 4. Continue scheduled Lasix as ordered. We will plan to increase dose to 40 mg twice daily. 5. Unable to obtain CTA chest due to contrast allergy. Therefore, will check lower extremity Doppler studies. 6. Wean supplemental oxygen as tolerated. Goal oxygen saturation at or above 88%. 7. Encourage aggressive incentive spirometer use and mobilize patient as elevated. IMPRESSIONS: 1. Acute hypoxic respiratory failure/underlying mixed ventilatory defect with exacerbation/bronchiectasis Likely multifactorial in etiology. While the patient did have what appeared to be the beginning stages of an interstitial lung process in April, a high resolution chest CT obtained during this hospitalization revealed significant interval worsening in the patient's fibrotic interstitial lung disease. While I cannot discount the possibility for underlying pulmonary infectious process, the patient has known bronchiectasis which could be contributing to his current cough complaints. In addition, a surface echocardiogram did reveal evidence of diastolic dysfunction and pulmonary hypertension. My clinical concern is that the patient's evolving interstitial lung process could be the consequence of idiopathic pulmonary fibrosis versus fibrosing NSIP, given that the patient was recently identified as having rheumatoid arthritis. Therefore, he will be continued on IV steroids. He will also be continued on antibiotics. BiPAP will continue to be utilized as needed. We will continue to wean supplemental oxygen as tolerated to maintain a saturation at or above 88%. Bronchodilators will be continued. In essence, the patient either has a steroid responsive interstitial lung process or a non-steroid responsive interstitial lung process, with idiopathic pulmonary fibrosis being a non-steroid responsive lung disease. While the patient does have some overlap radiographically between potential NSIP and IPF, my concern is that he does not appear to be responding readily to steroids. If the patient's lung disease is truly related to IPF, there would be no treatment to reverse the fibrotic changes that have already taken place. 2. Heart failure with preserved ejection fraction/pulmonary hypertension The patient's pulmonary hypertension is most likely the consequence of his underlying pulmonary process coupled with hypoxia. Continue current supportive measures as noted above. The patient will be continued on Lasix with plans to increase the dose today to 40 mg twice daily. 3. Recently diagnosed rheumatoid arthritis and MGUS The patient was referred to rheumatology from the office of Dr. Hein after he was noted to have a positive rheumatoid factor and anti-CCP antibody. However, the business architect identified an abnormal M protein, which prompted a referral to Dr. Sol of hematology. I personally discussed the patient with Dr. 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 I do feel that it will be imperative that the patient return to the business architect as quickly as possible to be started on therapy for his underlying rheumatologic disease, as this could be contributing to his current lung manifestations. I did call and speak with the patient's business architect, Dr. Moise, at the [facility] ([phone]), who indicated that it was his intention to start the patient on a medication like Imuran, once he was cleared by hematology. We will plan to call the patient's business architect office once the patient has been medically stabilized for discharge to set up an expedited follow-up office visit. He is currently scheduled for a follow-up visit on October 12. 4. Prior history of tobacco abuse/hypertension/GERD Complicates care, management, recovery and prognosis. Continue home medications as indicated. This note was generated with [employer] dictation software. It may contain incorrect words, spelling, and punctuation that were not noted in checking the note before signing. Code Visit Inpatient E&M: 56387 [facility] Hosp L3
--- NOTE | 2018-08-28 06:51 | PN_ITS ---
Subjective: The patient was seen and examined at the bedside this morning. Events from the last 24 hours have been reviewed. The patient is currently afebrile, hemodynamically stable and maintaining marginal oxygen saturations on 12 L/min high flow nasal cannula. The patient remains hypoxic both at rest and with even minimal amounts of physical exertion. The patient was overall net -290 mL's yesterday. He is now overall net -1.5 L for the admission. Creatinine remains stable. Unfortunately, the patient has a listed allergy to contrast media, with a ngioedema documented as his reaction. This would preclude our ability to obtain a CTA chest. Objective: The patient's most recent lab work, culture data and imaging studies have all been personally reviewed. Previous chest CT from April 2018 revealed evidence of emphysematous changes along with subpleural reticular changes and focal areas of honeycombing. There was also evidence of traction bronchiectasis. A repeat CT chest (high-resolution) was obtained on August 24 and revealed evidence of significant reticular and groundglass changes bilaterally along with traction bronchiectasis and some subpleural honeycombing, suggestive of fibrotic lung disease. The changes noted on the patient's most recent CT chest had progressed significantly since his last imaging study in April 2018. Surface echocardiogram revealed evidence of stage I diastolic dysfunction with a pulmonary artery systolic pressure estimated to be 44 mmHg. The patient's respiratory viral pane l was negative. Strep and urine Legionella antigens were negative. Blood and urine cultures have shown no growth to date. Preliminary respiratory culture appears to be normal respiratory mike. General: Alert, Cooperative, No apparent distress HEENT: Atraumatic, PERRLA, Normocephalic Oral: No Gingival or Mucosal Lesions/ Ulcerations Neck: Supple, No Nodes, Trachea Midline Lungs: No rhonchi, No wheeze, Diminished, Rales Cardiovascular: Regular rate, Regular Rhythm, Normal S1, Normal S2, No murmurs Abdomen: Bowel Sounds Present, Soft, Non Tender Extremities: No cyanosis, No edema, Clubbing Skin: No rashes, No breakdown Musculoskeletal: No Muscle Wasting Lymphatic: No Cervical, Supraclavicular, or Inguinal Adenopathy Neurological: Cranial nerves II-XII grossly intact, Neuro grossly intact Psych/Mental Status: Normal Affect, Appropriate Vital Signs Temp Pulse Resp BP Pulse Ox 36.7 C 84 18 121/74 H 92 08/28/18 00:00 08/28/18 06:41 08/28/18 06:41 08/28/18 06:00 08/28/18 06:41 Oxygen Flow Rate (L/min) 12 Oxygen Delivery Method Nasal Cannula Weight: 193 lb 12.581 oz Body Mass Index (BMI) 28.9 Intake and Output for Last 24 Hours 08/26/18 08/27/18 08/28/18 23:59 23:59 23:59 Intake Total 2356.1 / 2356.1 2284.7 / 2284.7 650 / 650 Output Total 2825 / 2825 2575 / 2575 675 / 675 Balance -468.9 / -468.9 -290.3 / -290.3 -25 / -25 Labs (Last 48 Hours) 08/24/18 08/27/18 08/27/18 05:27 05:15 05:15 WBC 26.7 H RBC 4.41 L Hgb 13.0 Hct 40.3 MCV 91.4 MCH 29.5 MCHC 32.3 RDW 13.4 RDW Differential 44.2 H Plt Count 406 MPV 10.0 Immature Gran % (Auto) 0.500 Neut % (Auto) 88.4 H Lymph % (Auto) 6.8 L [place] % (Auto) 4.2 Eos % (Auto) 0.0 Baso % (Auto) 0.1 Absolute Neuts (auto) 23.6 H Absolute Lymphs (auto) 1.81 Total Counted Not Reportable Differential Comment Platelet Estimate SLT INC RBC Morphology 1+ Anisocytosis 1+ Sodium 140 Potassium 3.9 Chloride 101 Carbon Dioxide 28.0 Anion Gap 11 BUN 21 H Creatinine 0.82 Estim Creat Clear Calc 77.84 Est GFR (MDRD) Af Amer 119 Est GFR (MDRD) Non-Af 98 BUN/Creatinine Ratio 25.8 H Glucose 152 H Calcium 8.4 L Mycoplasma pneumon IgG < 100 Mycoplasma pneumon IgM < 770 08/28/18 08/28/18 05:15 05:15 WBC 20.7 H RBC 4.44 L Hgb 13.3 Hct 40.6 MCV 91.4 MCH 30.0 MCHC 32.8 RDW 13.3 RDW Differential 43.7 Plt Count 398 MPV 9.7 Immature Gran % (Auto) 0.800 Neut % (Auto) 86.5 H Lymph % (Auto) 6.4 L [place] % (Auto) 6.3 Eos % (Auto) 0.0 Baso % (Auto) 0.0 Absolute Neuts (auto) 17.9 H Absolute Lymphs (auto) 1.33 Total Counted Not Reportable Differential Comment Platelet Estimate RBC Morphology Anisocytosis Sodium 138 Potassium 4.0 Chloride 100 Carbon Dioxide 28.0 Anion Gap 10 BUN 20 H Creatinine 0.83 Estim Creat Clear Calc 76.90 Est GFR (MDRD) Af Amer 116 Est GFR (MDRD) Non-Af 96 BUN/Creatinine Ratio 24.1 H Glucose 182 H Calcium 8.3 L Mycoplasma pneumon IgG Mycoplasma pneumon IgM Microbiology 08/26/18 10:55 Sputum, Expectorated/Coughed Gram Stain - Final 08/26/18 10:55 Sputum, Expectorated/Coughed Respiratory Culture - Preliminary Appears to be normal respiratory mike. Further studies to follow. 08/24/18 01:30 Blood Culture (Wb) - Anticubital Right Blood Culture - Preliminary No growth in 48 hours. 08/24/18 01:16 Blood Culture (Wb) - Anticubital Left Blood Culture - Preliminary No growth in 48 hours. 08/24/18 03:16 Urine, Random Urine Culture - Final Culture exhibits no growth. 08/24/18 01:24 Sputum, Expectorated/Coughed Gram Stain - Final 08/24/18 01:24 Sputum, Expectorated/Coughed Respiratory Culture - Final Clinical Impression(s) from Imaging Studies Chest X-Ray 08/24/18 01:19 IMPRESSION: Increasing right-sided airspace consolidation and left-sided airspace consolidation since previous study consistent with pneumonia. Electronically Signed: Carmencita Barron MD at 2:01 EST , Service support , Chest CT 08/24/18 11:20 IMPRESSION: Changes compatible with a progressive pulmonary fibrosis with evidence of honeycombing and bronchiectasis. This is worse in the right hemithorax. Enlarged bilateral axillary lymph nodes. Electronically Signed: Joseph Sheriff MD at 12:53 EST Tel [phone], Service support , Medical Necessity - Tobacco Use Smoking Status: Former smoker Assessment/Plan All Active Problems (Last Reviewed 08/24/18 @ 03:05 by Andrés Mane MD) Community acquired pneumonia (Acute) Hypoxemia (Acute) History of bilateral cataract extraction (Resolved) Status post trigger finger release (Resolved) History of cholecystectomy (Resolved) History of bilateral carpal tunnel release (Resolved) History of prostatectomy (Resolved) History of coronary artery bypass graft x 3 (Resolved) History of colonoscopy (Resolved) RECOMMENDATIONS: 1. Continue antibiotics as ordered to complete treatment course. 2. Continue scheduled bronchodilators. 3. Continue IV steroids. 4. Continue scheduled Lasix as ordered. We will plan to increase dose to 40 mg twice daily. 5. Unable to obtain CTA chest due to contrast allergy. Therefore, will check lower extremity Doppler studies. 6. Wean supplemental oxygen as tolerated. Goal oxygen saturation at or above 88%. 7. Encourage aggressive incentive spirometer use and mobilize patient as elevated. IMPRESSIONS: 1. Acute hypoxic respiratory failure/underlying mixed ventilatory defect with exacerbation/bronchiectasis Likely multifactorial in etiology. While the patient did have what appeared to be the beginning stages of an interstitial lung process in April, a high resolution chest CT obtained during this hospitalization revealed significant interval worsening in the patient's fibrotic interstitial lung disease. While I cannot discount the possibility for underlying pulmonary infectious process, the patient has known bronchiectasis which could be contributing to his current cough complaints. In addition, a surface echocardiogram did reveal evidence of diastolic dysfunction and pulmonary hypertension. My clinical concern is that the patient's evolving interstitial lung process could be the consequence of idiopathic pulmonary fibrosis versus fibrosing NSIP, given that the patient was recently identified as having rheumatoid arthritis. Therefore, he will be continued on IV steroids. He will also be continued on antibiotics. BiPAP will continue to be utilized as needed. We will continue to wean supplemental oxygen as tolerated to maintain a saturation at or above 88%. Bronchodilators will be continued. In essence, the patient either has a steroid responsive interstitial lung process or a non-steroid responsive interstitial lung process, with idiopathic pulmonary fibrosis being a non-steroid responsive lung disease. While the patient does have some overlap radiographically between potential NSIP and IPF, my concern is that he does not appear to be responding readily to steroids. If the patient's lung disease is truly related to IPF, there would be no treatment to reverse the fibrotic changes that have already taken place. 2. Heart failure with preserved ejection fraction/pulmonary hypertension The patient's pulmonary hypertension is most likely the consequence of his underlying pulmonary process coupled with hypoxia. Continue current supportive measures as noted above. The patient will be continued on Lasix with plans to increase the dose today to 40 mg twice daily. 3. Recently diagnosed rheumatoid arthritis and MGUS The patient was referred to rheumatology from the office of Dr. Hein after he was noted to have a positive rheumatoid factor and anti-CCP antibody. However, the operations processor identified an abnormal M protein, which prompted a referral to Dr. Sol of hematology. I personally discussed the patient with Dr. 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 I do feel that it will be imperative that the patient return to the operations processor as quickly as possible to be started on therapy for his underlying rheumatologic disease, as this could be contributing to his current lung manifestations. I did call and speak with the patient's operations processor, Dr. Moise, at the [facility] ([phone]), who indicated that it was his intention to start the patient on a medication like Imuran, once he was cleared by hematology. We will plan to call the patient's operations processor office once the patient has been medically stabilized for discharge to set up an expedited follow-up office visit. He is currently scheduled for a follow-up visit on October 12. 4. Prior history of tobacco abuse/hypertension/GERD Complicates care, management, recovery and prognosis. Continue home medications as indicated. This note was generated with [employer] dictation software. It may contain incorrect words, spelling, and punctuation that were not noted in checking the note before signing. Code Visit Inpatient E&M: 27582 Subs Hosp L3
--- NOTE | 2018-08-28 07:13 | VDLE_ITS ---
Reason For Study: SHORTNESS OF BREATH RIGHT LEFT CFV is compressible, spontaneous, phasic, GSV is normal. competent and demonstrates normal CFV is compressible, spontaneous, phasic, augmentation. competent, and demonstrates normal FV is compressible, spontaneous, phasic, augmentation. competent and demonstrates normal FV is compressible, spontaneous, phasic, augmentation. competent and demonstrates normal POP V is compressible, spontaneous, phasic, augmentation. competent and demonstrates normal POP V is compressible, spontaneous, phasic, augmentation. competent and demonstrates normal T/P Trunk is compressible. augmentation. PTV is compressible. T/P Trunk is compressible. RT PerV is compressible. PTV is compressible. GSV harvested LT PerV is compressible. Gastroc V is dilated and non-compressible. Soleus V is dilated and non-compressible. Procedure Exam performed portable in ICU/CCU. A preliminary report was called and/or faxed to ICU nurse. <> Interpretation Summary Acute deep venous thrombosis right gastrocnemius and left soleus veins. No evidence for proximal progression bilaterally. Harvested right great saphenous vein Patent and compressible left great saphenous vein Ordering Physician: Adryan Silva D.O. Referring Physician: Tati Medina Performed By: Kami Parekh RVT
[2018-08-28 09:27] LABS: Magnesium 2.2 mg/dL (1.6-2.6)
[2018-08-28] MEDS: Aspirin E.C. 81 MG Tablet PO (10:36)
[2018-08-28] MEDS: Multivitamins,Therapeutic Tablet 1 TABLET PO (10:36)
[2018-08-28] MEDS: amLODIPine 10 MG Tablet PO (10:38)
[2018-08-28] MEDS: guaiFENesin 1,200 MG Tablet 1200 MG PO ×2 (10:38→21:45)
[2018-08-28] MEDS: Metoprolol Tartrate 25 MG Tablet PO ×2 (10:38→21:45)
[2018-08-28] MEDS: Pantoprazole Sodium 20 MG Tablet PO (10:38)
[2018-08-28 10:45] LABS: International Normalized Ratio 1.2; Prothrombin Time (Protime)PT. 15.1 SECONDS (11.7-14.9)
[2018-08-28 10:46] LABS: Partial Thromboplast Time 24.6 Seconds (24.1-36.2)
[2018-08-28] MEDS: HEPARIN/D5w 25,000 UNITS 25,000 UNITS/250 ML IV.SOLN. 12 UNITS IV (11:02)
[2018-08-28] MEDS: Heparin Injection (Vial) 5,000 UNIT/ML VIAL 6000 UNIT IV (11:02)
--- NOTE | 2018-08-28 11:17 | CASEMGMT ---
SW participated in ICU rounds this morning. SW then spoke w/pt, , daughter and son in law in regard to discharge plan. SW reviewed options, including home health vs. SNF, gave a list of SNF's that take pt's insurance. SW explained that if pt is not able to go home when ready for discharge, we can make a referral to any of the nursing homes on the list that take pt's insurance. SW explained if they can take pt they will send the information to the insurance to attain precert. Pt and family state understanding. SW asked pt and family to review this list in event this level of care is needed, and SW will follow up on Friday. SW will continue to follow for appropriate discharge plan. CLARKE Barksdale, [employer]AR [employer]ATION SUPERVISOR
[2018-08-28] MEDS: Furosemide 40 MG/4 ML Vial IV ×2 (11:18→18:50)
--- NOTE | 2018-08-28 13:17 | PN_ITS ---
Patient Problems: Active and Suspected Problems (Last Reviewed 08/24/18 @ 03:05 by Andrés Mane MD) Community acquired pneumonia (Acute) Hypoxemia (Acute) Subjective: Seen and examined. Patient continued to have borderline oxygen saturation 89-90% even on 1 L of high flow oxygen as a patient allergy list of contrast media with angioedema, lower extremity venous Doppler was done. It was positive of bilateral lower legs DVT on soleus and gastrocnemius veins. Currently on IV heparin drip. Vitals/I&O's: Vital Signs Temp Pulse Resp BP Pulse Ox 98.0 F 88 20 H 140/82 H 89 08/28/18 00:00 08/28/18 11:14 08/28/18 11:14 08/28/18 08:00 08/28/18 11:02 Oxygen Flow Rate (L/min) 12 Oxygen Delivery Method Nasal Cannula Weight: 193 lb 12.581 oz Body Mass Index (BMI) 28.9 Intake and Output for Last 24 Hours 08/26/18 08/27/18 08/28/18 23:59 23:59 23:59 Intake Total 2356.1 / 2356.1 2284.7 / 2284.7 650 / 650 Output Total 2825 / 2825 2575 / 2575 1050 / 1050 Balance -468.9 / -468.9 -290.3 / -290.3 -400 / -400 General: Alert, Oriented x3, Cooperative HEENT: Atraumatic, PERRLA, EOMI, Normocephalic Neck: Supple, No JVD, Negative Carotid Bruits Lungs: Diminished, Rales, Rhonchi - Inspiratory rhonchi are present Cardiovascular: Regular rate, Regular Rhythm, Normal S1, Normal S2, No murmurs Abdomen: Bowel Sounds Present, Soft, Non Tender, Non-Distended Extremities: Capillary Refill Less than 3 Seconds, Edema Skin: No rashes, No breakdown Musculoskeletal: No Tenderness to Palpation of Joints or Extremities, Arthritic Changes, Muscle Wasting Neurological: Cranial nerves II-XII grossly intact Psych/Mental Status: Normal Affect, Appropriate Microbiology Past 72 Hours 08/26/18 10:55 Sputum, Expectorated/Coughed Gram Stain - Final 08/26/18 10:55 Sputum, Expectorated/Coughed Respiratory Culture - Preliminary Presumptive C albicans 08/24/18 01:30 Blood Culture (Wb) - Anticubital Right Blood Culture - Prel iminary No growth in 48 hours. 08/24/18 01:16 Blood Culture (Wb) - Anticubital Left Blood Culture - Preliminary No growth in 48 hours. 08/24/18 03:16 Urine, Random Urine Culture - Final Culture exhibits no growth. 08/24/18 01:24 Sputum, Expectorated/Coughed Gram Stain - Final 08/24/18 01:24 Sputum, Expectorated/Coughed Respiratory Culture - Final 08/24/18 14:30 Mucosa - Nose Respiratory Panel (PCR) - Final Laboratory Results 08/28/18 05:15: WBC 20.7 H, RBC 4.44 L, Hgb 13.3, Hct 40.6, MCV 91.4, MCH 30.0, MCHC 32.8, RDW 13.3, RDW Differential 43.7, Plt Count 398, MPV 9.7, Immature Gran % (Auto) 0.800, Neut % (Auto) 86.5 H, Lymph % (Auto) 6.4 L, Esmeralda % (Auto) 6.3, Eos % (Auto) 0.0, Baso % (Auto) 0.0, Absolute Neuts (auto) 17.9 H, Absolute Lymphs (auto) 1.33, Total Counted Not Reportable 08/28/18 05:15: Sodium 138, Potassium 4.0, Chloride 100, Carbon Dioxide 28.0, Anion Gap 10, BUN 20 H, Creatinine 0.83, Estim Creat Clear Calc 76.90, Est GFR (MDRD) Af Amer 116, Est GFR (MDRD) Non-Af 96, BUN/Creatinine Ratio 24.1 H, Glucose 182 H, Calcium 8.3 L 08/28/18 05:15: Magnesium 2.2 08/28/18 10:25: PT 15.1 H, INR 1.2, APTT 24.6 Current Medications Acetaminophen (Tylenol) 650 mg PO Q4H PRN PRN PRN Reason: FEVER Last Admin: 08/24/18 16:16 Dose: 650 mg Albuterol Sulfate (Ventolin Aerosols) 2.5 mg INHALATION Q2H PRN PRN PRN Reason: SHORTNESS OF BREATH Last Admin: 08/24/18 04:02 Dose: 2.5 mg Albuterol/Ipratropium (Duoneb) 3 ml INHALATION Q4H.RT [facility] Last Admin: 08/28/18 11:14 Dose: 3 ml Amlodipine Besylate (Norvasc) 10 mg PO DAILY [facility] Last Admin: 08/28/18 10:38 Dose: 10 mg Aspirin (Ecotrin) 81 mg PO DAILY@0800 [facility] Last Admin: 08/28/18 10:36 Dose: 81 mg Benzonatate (Tessalon Perle) 200 mg PO TID PRN PRN PRN Reason: COUGH Chlorhexidine Gluconate () 1 each TOPICAL DAILY [facility] Last Admin: 08/27/18 05:12 Dose: 1 each Cholecalciferol (Vitamin D) 5,000 unit PO DAILY [facility] Last Admin: 08/28/18 10:39 Dose: 5,000 unit Furosemide (Lasix) 40 mg IV BID@1000,1800 [facility] Last Admin: 08/28/18 11:18 Dose: 40 mg Guaifenesin (Mucinex) 1,200 mg PO BID [facility] Last Admin: 08/28/18 10:38 Dose: 1,200 mg Heparin Sodium (Porcine) (Heparin Na) 0 unit IV UD PRN; Protocol Hydroxyzine Pamoate (Vistaril Pamoate Capsule) 25 mg PO QHS PRN PRN Reason: SLEEP Last Admin: 08/26/18 21:23 Dose: 25 mg Sodium Chloride () 250 mls @ 15 mls/hr IV .[id number] PRN PRN Reason: SALINE FLUSH Last Admin: 08/25/18 11:39 Dose: 15 mls/hr Heparin Sodium/Dextrose () 25,000 units in 250 mls @ 12 mls/hr IV .[id number] [facility]; Protocol Last Admin: 08/28/18 11:02 Dose: 12 mls/hr Lactobacillus Acidophilus (Acidophilus) 1 tablet PO DAILY [facility] Last Admin: 08/28/18 10:38 Dose: 1 tablet Levofloxacin (Levaquin Tablet) 750 mg PO DAILY@0600 [facility] Stop: 08/31/18 06:01 Last Admin: 08/28/18 05:08 Dose: 750 mg Lorazepam (Ativan) 0.5 mg IV Q6H PRN PRN PRN Reason: ANXIETY Magnesium Hydroxide (Milk Of Magnesia) 30 ml PO DAILY PRN PRN Reason: Constipation Methylprednisolone (Solu-Medrol) 40 mg IV Q6 [facility] Last Admin: 08/28/18 05:08 Dose: 40 mg Metoprolol Tartrate (Lopressor (Beta Haris)) 25 mg PO BID [facility] Last Admin: 08/28/18 10:38 Dose: 25 mg Multivitamins (Multivitamin) 1 tablet PO DAILYCM [facility] Last Admin: 08/28/18 10:36 Dose: 1 tablet Ondansetron HCl (Zofran) 4 mg IV Q8H PRN PRN PRN Reason: NAUSEA Pantoprazole Sodium (Protonix) 20 mg PO DAILY [facility] Last Admin: 08/28/18 10:38 Dose: 20 mg Sodium Chloride () 5 - 30 ml IV UD PRN PRN Reason: SALINE FLUSH Last Admin: 08/28/18 11:18 Dose: 20 ml Medical Necessity - Tobacco Use Smoking Status: Former smoker Assessment/Plan All Active Problems (Last Reviewed 08/24/18 @ 03:05 by Andrés Mane MD) Community acquired pneumonia (Acute) Hypoxemia (Acute) History of bilateral cataract extraction (Resolved) Status post trigger finger release (Resolved) History of cholecystectomy (Resolved) History of bilateral carpal tunnel release (Resolved) History of prostatectomy (Resolved) History of coronary artery bypass graft x 3 (Resolved) History of colonoscopy (Resolved) The patient is a 73 year old M with a significant history of former tobacco abuse; CAD status post CABG; hypertension;HLD; COPD, not on home oxygen, recent diagnosis of M protein positive, MGUS and rheumatoid arthritis who presented wi th progressively worsening shortness of breath that started in April of this year and further worsened in the past week. 1. Acute hypoxic respiratory failure probably multifactorial secondary to mixed ventilatory defect, interstitial lung disease/rheumatoid arthritis, COPD, traction bronchiectasis possible interstitial pneumonia: Patient initially was admitted in PCU but was transferred to ICU after he had hypoxia, tachypnea and respiratory distress. ABG 7.52/26 0.8/50 on 6 L of oxygen through nasal cannula. On high flow oxygen 12 L/min with intermittent BiPAP support, goal pulse ox 90-92%. Try to wean off BiPAP as per patient tolerates gradually. Discussed with the hr clerk. Continue on IV Levaquin. Vancomycin discontinued. The patient was started on IV Solu-Medrol by Dr. Silva after discussion with outboard motor tester. Clinical concern of idiopathic pulmonary fibrosis versus fibrosing NSIP. Preliminary sputum culture shows presumptive Maria Luz albicans. Urinary antigens and respiratory panel are negative. MRSA nasal screen negative. Mycoplasma antibody negative. HRCT done on 08/24 showed progression of fibrosis/scarring, diffuse in nature with honeycombing and bronchiectasis, worse in the right hemithorax. Continue other supportive treatment including bronchodilator, Mucinex, incentive spirometry and chest physiotherapy 2. MGUS: Patient had M protein disease which came out to MGUS. Dr. Sol. 3. Cardiac conditions include coronary artery status post CABG: Continue aspirin and metoprolol number cardiac medications. 4. Rheumatoid arthritis: Patient will need to follow with the gauger chief, Dr Moise after discharge. There is Imuran anticipation of starting on as an outpatient by outboard motor tester 5. Bilateral legs, calf veins DVT gastrocnemius and soleal veins: On IV heparin drip currently. May switch over to oral anticoagulants tomorrow a.m. Hypertension: Blood pressure is controlled. GERD: On PPI DVT prophylaxis: On Lovenox. Hospital course, patient's disease condition and management discussed with the patient's son near the bedside. Clinical Impression(s) from Imaging Studies Chest X-Ray 08/24/18 01:19 IMPRESSION: Increasing right-sided airspace consolidation and left-sided airspace consolidation since previous study consistent with pneumonia. Chest CT 08/24/18 11:20 IMPRESSION: Changes compatible with a progressive pulmonary fibrosis with evidence of honeycombing and bronchiectasis. This is worse in the right hemithorax. Enlarged bilateral axillary lymph nodes. Microbiology Past 72 Hours 08/26/18 10:55 Sputum, Expectorated/Coughed Gram Stain - Final 08/26/18 10:55 Sputum, Expectorated/Coughed Respiratory Culture - Preliminary Presumptive C albicans 08/24/18 01:30 Blood Culture (Wb) - Anticubital Right Blood Culture - Preliminary No growth in 48 hours. 08/24/18 01:16 Blood Culture (Wb) - Anticubital Left Blood Culture - Preliminary No growth in 48 hours. 08/24/18 03:16 Urine, Random Urine Culture - Final Culture exhibits no growth. 08/24/18 01:24 Sputum, Expectorated/Coughed Gram Stain - Final 08/24/18 01:24 Sputum, Expectorated/Coughed Respiratory Culture - Final 08/24/18 14:30 Mucosa - Nose Respiratory Panel (PCR) - Final Laboratory Results 08/28/18 05:15: WBC 20.7 H, RBC 4.44 L, Hgb 13.3, Hct 40.6, MCV 91.4, MCH 30.0, MCHC 32.8, RDW 13.3, RDW Differential 43.7, Plt Count 398, MPV 9.7, Immature Gran % (Auto) 0.800, Neut % (Auto) 86.5 H, Lymph % (Auto) 6.4 L, Esmeralda % (Auto) 6.3, Eos % (Auto) 0.0, Baso % (Auto) 0.0, Absolute Neuts (auto) 17.9 H, Absolute Lymphs (auto) 1.33, Total Counted Not Reportable 08/28/18 05:15: Sodium 138, Potassium 4.0, Chloride 100, Carbon Dioxide 28.0, Anion Gap 10, BUN 20 H, Creatinine 0.83, Estim Creat Clear Calc 76.90, Est GFR (MDRD) Af Amer 116, Est GFR (MDRD) Non-Af 96, BUN/Creatinine Ratio 24.1 H, Glucose 182 H, Calcium 8.3 L 08/28/18 05:15: Magnesium 2.2 08/28/18 10:25: PT 15.1 H, INR 1.2, APTT 24.6 Active Medications Acetaminophen (Tylenol) 650 mg PO Q4H PRN PRN PRN Reason: FEVER Last Admin: 08/24/18 16:16 Dose: 650 mg Albuterol Sulfate (Ventolin Aerosols) 2.5 mg INHALATION Q2H PRN PRN PRN Reason: SHORTNESS OF BREATH Last Admin: 08/24/18 04:02 Dose: 2.5 mg Albuterol/Ipratropium (Duoneb) 3 ml INHALATION Q4H.RT [facility] Last Admin: 08/28/18 15:35 Dose: 3 ml Amlodipine Besylate (Norvasc) 10 mg PO DAILY [facility] Last Admin: 08/28/18 10:38 Dose: 10 mg Aspirin (Ecotrin) 81 mg PO DAILY@0800 [facility] Last Admin: 08/28/18 10:36 Dose: 81 mg Benzonatate (Tessalon Perle) 200 mg PO TID PRN PRN PRN Reason: COUGH Chlorhexidine Gluconate () 1 each TOPICAL DAILY [facility] Last Admin: 08/27/18 05:12 Dose: 1 each Cholecalciferol (Vitamin D) 5,000 unit PO DAILY [facility] Last Admin: 08/28/18 10:39 Dose: 5,000 unit Furosemide (Lasix) 40 mg IV BID@1000,1800 [facility] Last Admin: 08/28/18 11:18 Dose: 40 mg Guaifenesin (Mucinex) 1,200 mg PO BID [facility] Last Admin: 08/28/18 10:38 Dose: 1,200 mg Heparin Sodium (Porcine) (Heparin Na) 0 unit IV UD PRN; Protocol Hydroxyzine Pamoate (Vistaril Pamoate Capsule) 25 mg PO QHS PRN PRN Reason: SLEEP Last Admin: 08/26/18 21:23 Dose: 25 mg Sodium Chloride () 250 mls @ 15 mls/hr IV .[id number] PRN PRN Reason: SALINE FLUSH Last Admin: 08/25/18 11:39 Dose: 15 mls/hr Heparin Sodium/Dextrose () 25,000 units in 250 mls @ 12 mls/hr IV .[id number] [facility]; Protocol Last Admin: 08/28/18 11:02 Dose: 12 mls/hr Lactobacillus Acidophilus (Acidophilus) 1 tablet PO DAILY [facility] Last Admin: 08/28/18 10:38 Dose: 1 tablet Levofloxacin (Levaquin Tablet) 750 mg PO DAILY@0600 [facility] Stop: 08/31/18 06:01 Last Admin: 08/28/18 05:08 Dose: 750 mg Lorazepam (Ativan) 0.5 mg IV Q6H PRN PRN PRN Reason: ANXIETY Magnesium Hydroxide (Milk Of Magnesia) 30 ml PO DAILY PRN PRN Reason: Constipation Methylprednisolone (Solu-Medrol) 40 mg IV Q6 [facility] Last Admin: 08/28/18 13:45 Dose: 40 mg Metoprolol Tartrate (Lopressor (Beta Haris)) 25 mg PO BID [facility] Last Admin: 08/28/18 10:38 Dose: 25 [facility] Admin: 08/28/18 10:36 Dose: 1 tablet Ondansetron HCl (Zofran) 4 mg IV Q8H PRN PRN PRN Reason: NAUSEA Pantoprazole Sodium (Protonix) 20 mg PO DAILY [facility] Last Admin: 08/28/18 10:38 Dose: 20 mg Sodium Chloride () 5 - 30 ml IV UD PRN PRN Reason: SALINE FLUSH Last Admin: 08/28/18 13:45 Dose: 10 ml Code Visit Inpatient E&M: 15213 Subs Hosp L3
--- NOTE | 2018-08-28 13:59 | CASEMGMT ---
Addendum entered by Harika Mitchell 08/28/18 14:00: Prescription Coverage per [facility] preferred pharmacy [employer] PDP Bin: [id number] PCN: [id number] Policy: [id number] Group: [id number] Original Note: Per [employer] prescription coverage preferred brand for anticoagulants is Eliquis or Xarelto.
[2018-08-28] MEDS: CHLORHEXIDINE GLUC 2% CLOTH 1 EACH TOWELETTE TOPICAL (14:00)
[2018-08-28 17:48] LABS: Partial Thromboplast Time 50.2 Seconds (24.1-36.2)
[2018-08-28] MEDS: Glycerin/Hypromellose/PEG400 15 ml Bottle 2 DRP EACH EYE (18:50)
[2018-08-28] MEDS: Heparin Injection (Vial) 5,000 UNIT/ML VIAL IV (18:55)
[2018-08-28] MEDS: hydrOXYzine PAM 25 MG Capsule PO (21:45)
[2018-08-29] VITALS (38 sets, daily range): BP systolic 112–142; BP diastolic 67–86; PULSE 70–108; RESP 13–27; TEMP 36.2–36.8; O2SAT 87–99
[2018-08-29] MEDS: 0.9% NaCl Peripheral Flush Adult/Peds IV ×5 (00:26→23:24)
[2018-08-29 01:53] LABS: Partial Thromboplast Time 56.9 Seconds (24.1-36.2)
[2018-08-29] MEDS: Ipratropium/Albuterol Sulfate 3 ML AMPUL.NEB INHALATION ×6 (02:45→23:04)
--- NOTE | 2018-08-29 02:49 | CPS ---
decreased O2 to 10 lpm high flow nasal cannula
[2018-08-29] MEDS: HEPARIN/D5w 25,000 UNITS 25,000 UNITS/250 ML IV.SOLN. 12 UNITS IV (04:54)
[2018-08-29] MEDS: levoFLOXacin 750 MG Tablet PO (05:03)
--- NOTE | 2018-08-29 06:20 | PCM.PN.INT ---
Subjective: The patient was seen and examined at the bedside this morning. Events from the last 24 hours have been reviewed. The patient is currently afebrile, hemodynamically stable and maintaining appropriate oxygen saturations on 10 L/min high flow nasal cannula. The patient was overall net -1.5 L yesterday, following an increase in his Lasix regimen to 40 mg twice daily. He is now overall net -3 L for the admission. As the patient was not able to undergo a CTA chest yesterday due to a reported contrast allergy, lower extremity Dopplers were obtained. The preliminary report was positive for the presence of DVTs. Therefore, the patient was started on a heparin drip. The patient continues to avidly desaturate with even minimal amounts of physical activity. Objective: The patient's most recent lab work, culture data and imaging studies have all been personally reviewed. Previous chest CT from April 2018 revealed evidence of emphysematous changes along with subpleural reticular changes and focal areas of honeycombing. There was also evidence of traction bronchiectasis. A repeat CT chest (high-resolution) was obtained on August 24 and revealed evidence of significant reticular and groundglass changes bilaterally along with traction bronchiectasis and some subpleural honeycombing, suggestive of fibrotic lung disease. The changes noted on the patient's most recent CT chest had progressed significantly since his last imaging study in April 2018. Surface echocardiogram revealed evidence of stage I diastolic dysfunction with a pulmonary artery systolic pressure estimated to be 44 mmHg. The patient's respiratory viral panel was negative. Strep and urine Legionella antigens were negative. Blood and urine cultures have shown no growth to date. Preliminary respiratory culture appears to be normal respiratory mike. General: Alert, Cooperative, No apparent distress HEENT: Atraumatic, PERRLA, Normocephalic Oral: No Gingival or Mucosal Lesions/ Ulcerations Neck: Supple, No Nodes, Trachea Midline Lungs: No rhonchi, No wheeze, Diminished, - - Continued bibasilar rales Cardiovascular: Regular rate, Regular Rhythm, Normal S1, Normal S2, No murmurs Abdomen: Bowel Sounds Present, Soft, Non Tender, Non-Distended Extremities: No cyanosis, No edema, Clubbing Skin: No breakdown Musculoskeletal: No Muscle Wasting Lymphatic: No Cervical, Supraclavicular, or Inguinal Adenopathy Neurological: Cranial nerves II-XII grossly intact, Neuro grossly intact Psych/Mental Status: Alert and oriented to time, place, person, mood and affect Vital Signs Temp Pulse Resp BP Pulse Ox 36.8 C 78 19 H 123/78 H 90 08/29/18 00:00 08/29/18 06:00 08/29/18 06:00 08/29/18 06:00 08/29/18 06:00 Oxygen Flow Rate (L/min) 10 Oxygen Delivery Method Nasal Cannula Weight: 191 lb 9.307 oz Body Mass Index (BMI) 28.9 Intake and Output for Last 24 Hours 08/27/18 08/28/18 08/29/18 23:59 23:59 23:59 Intake Total 2284.7 / 2284.7 1992.1 / 1991.1 1974.7 / 1974.7 Output Total 2575 / 2575 3575 / 3575 1850 / 1850 Balance -290.3 / -290.3 -1582.9 / -1582.9 125.7 / 125.7 Labs (Last 48 Hours) 08/27/18 08/28/18 08/28/18 05:15 05:15 05:15 WBC 26.7 H 20.7 H RBC 4.41 L 4.44 L Hgb 13.0 13.3 Hct 40.3 40.6 MCV 91.4 91.4 MCH 29.5 30.0 MCHC 32.3 32.8 RDW 13.4 13.3 RDW Differential 44.2 H 43.7 Plt Count 406 398 MPV 10.0 9.7 Immature Gran % (Auto) 0.500 0.800 Neut % (Auto) 88.4 H 86.5 H Lymph % (Auto) 6.8 L 6.4 L [place] % (Auto) 4.2 6.3 Eos % (Auto) 0.0 0.0 Baso % (Auto) 0.1 0.0 Absolute Neuts (auto) 23.6 H 17.9 H Absolute Lymphs (auto) 1.81 1.33 Total Counted Not Reportable Not Reportable Differential Comment Platelet Estimate SLT INC RBC Morphology 1+ Anisocytosis 1+ PT INR APTT Sodium 138 Potassium 4.0 Chloride 100 Carbon Dioxide 28.0 Anion Gap 10 BUN 20 H Creatinine 0.83 Estim Creat Clear Calc 76.90 Est GFR (MDRD) Af Amer 116 Est GFR (MDRD) Non-Af 96 BUN/Creatinine Ratio 24.1 H Glucose 182 H Calcium 8.3 L Magnesium 08/28/18 08/28/18 08/28/18 05:15 10:25 17:15 WBC RBC Hgb Hct MCV MCH MCHC RDW RDW Differential Plt Count MPV Immature Gran % (Auto) Neut % (Auto) Lymph % (Auto) [place] % (Auto) Eos % (Auto) Baso % (Auto) Absolute Neuts (auto) Absolute Lymphs (auto) Total Counted Differential Comment Platelet Estimate RBC Morphology Anisocytosis PT 15.1 H INR 1.2 APTT 24.6 50.2 H Sodium Potassium Chloride Carbon Dioxide Anion Gap BUN Creatinine Estim Creat Clear Calc Est GFR (MDRD) Af Amer Est GFR (MDRD) Non-Af BUN/Creatinine Ratio Glucose Calcium Magnesium 2.2 08/29/18 08/29/18 08/29/18 01:35 04:55 04:55 WBC 18.2 H RBC 4.18 L Hgb 12.4 L Hct 38.1 L MCV 91.1 MCH 29.7 MCHC 32.5 RDW 13.4 RDW Differential 44.2 H Plt Count 341 MPV 9.6 Immature Gran % (Auto) 1.600 H Neut % (Auto) 84.1 H Lymph % (Auto) 8.7 L [place] % (Auto) 5.4 Eos % (Auto) 0.0 Baso % (Auto) 0.2 Absolute Neuts (auto) 15.3 H Absolute Lymphs (auto) 1.58 Total Counted Not Reportable Differential Comment Platelet Estimate RBC Morphology Anisocytosis PT INR APTT 56.9 H Sodium Cancelled Potassium Cancelled Chloride Cancelled Carbon Dioxide Cancelled Anion Gap Cancelled BUN Cancelled Creatinine Cancelled Estim Creat Clear Calc Cancelled Est GFR (MDRD) Af Amer Cancelled Est GFR (MDRD) Non-Af Cancelled BUN/Creatinine Ratio Cancelled Glucose Cancelled Calcium Cancelled Magnesium 08/29/18 06:07 WBC RBC Hgb Hct MCV MCH MCHC RDW RDW Differential Plt Count MPV Immature Gran % (Auto) Neut % (Auto) Lymph % (Auto) [place] % (Auto) Eos % (Auto) Baso % (Auto) Absolute Neuts (auto) Absolute Lymphs (auto) Total Counted Differential Comment Platelet Estimate RBC Morphology Anisocytosis PT INR APTT Sodium Pending Potassium Pending Chloride Pending Carbon Dioxide Pending Anion Gap Pending BUN Pending Creatinine Pending Estim Creat Clear Calc Est GFR (MDRD) Af Amer Pending Est GFR (MDRD) Non-Af Pending BUN/Creatinine Ratio Pending Glucose Pending Calcium Pending Magnesium Microbiology 08/26/18 10:55 Sputum, Expectorated/Coughed Gram Stain - Final 08/26/18 10:55 Sputum, Expectorated/Coughed Respiratory Culture - Preliminary Presumptive C albicans Clinical Impression(s) from Imaging Studies Chest X-Ray 08/24/18 01:19 IMPRESSION: Increasing right-sided airspace consolidation and left-sided airspace consolidation since previous study consistent with pneumonia. Electronically Signed: Carmencita Barron MD at 2:01 EST , Service support , Chest CT 08/24/18 11:20 IMPRESSION: Changes compatible with a progressive pulmonary fibrosis with evidence of honeycombing and bronchiectasis. This is worse in the right hemithorax. Enlarged bilateral axillary lymph nodes. Electronically Signed: Joseph Sheriff MD at 12:53 EST Tel [phone], Service support , Medical Necessity - Tobacco Use Smoking Status: Former smoker Assessment/Plan All Active Problems (Last Reviewed 08/24/18 @ 03:05 by Andrés Mane MD) Community acquired pneumonia (Acute) Hypoxemia (Acute) History of bilateral cataract extraction (Resolved) Status post trigger finger release (Resolved) History of cholecystectomy (Resolved) History of bilateral carpal tunnel release (Resolved) History of prostatectomy (Resolved) History of coronary artery bypass graft x 3 (Resolved) History of colonoscopy (Resolved) RECOMMENDATIONS: 1. Continue antibiotics as ordered to complete treatment course. 2. Continue scheduled bronchodilators. 3. Continue IV steroids. 4. Continue scheduled Lasix as ordered. 5. Continue heparin drip, given preliminary report of lower extremity DVTs. 6. Wean supplemental oxygen as tolerated. Goal oxygen saturation at or above 88%. 7. Encourage aggressive incentive spirometer use and mobilize patient as elevated. IMPRESSIONS: 1. Acute hypoxic respiratory failure/underlying mixed ventilatory defect with exacerbation/bronchiectasis Likely multifactorial in etiology. While the patient did have what appeared to be the beginning stages of an interstitial lung process in April, a high resolution chest CT obtained during this hospitalization revealed significant interval worsening in the patient's fibrotic interstitial lung disease. While I cannot discount the possibility for underlying pulmonary infectious process, the patient has known bronchiectasis which could be contributing to his current cough complaints. In addition, a surface echocardiogram did reveal evidence of diastolic dysfunction and pulmonary hypertension. My clinical concern is that the patient's evolving interstitial lung process could be the consequence of idiopathic pulmonary fibrosis versus fibrosing NSIP, given that the patient was recently identified as having rheumatoid arthritis. Therefore, he will be continued on IV steroids. He will also be continued on antibiotics. BiPAP will continue to be utilized as needed. We will continue to wean supplemental oxygen as tolerated to maintain a saturation at or above 88%. Bronchodilators will be continued. In essence, the patient either has a steroid responsive interstitial lung process or a non-steroid responsive interstitial lung process, with idiopathic pulmonary fibrosis being a non-steroid responsive lung disease. While the patient does have some overlap radiographically between potential NSIP and IPF, my concern is that he does not appear to be responding readily to steroids. If the patient's lung disease is truly related to IPF, there would be no treatment to reverse the fibrotic changes that have already taken place. 2. Heart failure with preserved ejection fraction/pulmonary hypertension The patient's pulmonary hypertension is most likely the consequence of his underlying pulmonary process coupled with hypoxia. Continue current supportive measures as noted above. The patient will be continued on Lasix 40 mg twice daily. 3. Lower extremity DVTs Given the patient's refractory hypoxia, there was concern for venous thromboembolic disease. However, the patient had a reported allergy to contrast, which precluded our ability to obtain a CTA chest. Therefore, lower extremity Dopplers were obtained, which was preliminarily reported as being positive for DVTs. The patient then was placed on a heparin drip. 4. Recently diagnosed rheumatoid arthritis and MGUS The patient was referred to rheumatology from the office of Dr. Hein after he was noted to have a positive rheumatoid factor and anti-CCP antibody. However, the sheetmetal patternmaker identified an abnormal M protein, which prompted a referral to Dr. Sol of hematology. I personally discussed the patient with Dr. 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 I do feel that it will be imperative that the patient return to the sheetmetal patternmaker as quickly as possible to be started on therapy for his underlying rheumatologic disease, as this could be contributing to his current lung manifestations. I did call and speak with the patient's sheetmetal patternmaker, Dr. Moise, at the [facility] ([phone]), who indicated that it was his intention to start the patient on a medication like Imuran, once he was cleared by hematology. We will plan to call the patient's sheetmetal patternmaker office once the patient has been medically stabilized for discharge to set up an expedited follow-up office visit. He is currently scheduled for a follow-up visit on October 12. Prior history of tobacco abuse/hypertension/GERD Complicates care, management, recovery and prognosis. Continue home medications as indicated. This note was generated with [employer] dictation software. It may contain incorrect words, spelling, and punctuation that were not noted in checking the note before signing. Code Visit Inpatient E&M: 56240 Subs Hosp L3
--- NOTE | 2018-08-29 06:23 | PN_ITS ---
Subjective: The patient was seen and examined at the bedside this morning. Events from the last 24 hours have been reviewed. The patient is currently afebrile, hemodynamically stable and maintaining appropriate oxygen saturations on 10 L/min high flow nasal cannula. The patient was overall net -1.5 L yesterday, following an increase in his Lasix regimen to 40 mg twice daily. He is now overall net -3 L for the admission. As the patient was not able to undergo a CTA chest yesterday due to a reported contrast allergy, lower extremity Dopplers were obtained. The preliminary report was positive for the presence of DVTs. Therefore, the patient was started on a heparin drip. The patient continues to avidly desaturate with even minimal amounts of physical activity. Objective: The patient's most recent lab work, culture data and imaging studies have all been personally reviewed. Previous chest CT from April 2018 revealed evidence of emphysematous changes along with subpleural reticular changes and focal areas of honeycombing. There was also evidence of traction bronchiectasis. A repeat CT chest (high-resolution) was obtained on August 24 and revealed evidence of significant reticular and groundglass changes bilaterally along with traction bronchiectasis and some subpleural honeycombing, suggestive of fibrotic lung disease. The changes noted on the patient's most recent CT chest had progressed significantly since his last imaging study in April 2018. Surface echocardiogram revealed evidence of stage I diastolic dysfunction with a pulmonary artery systolic pressure estimated to be 44 mmHg. The patient's respiratory viral panel was negative. Strep and urine Legionella antigens were negative. Blood and urine cultures have shown no growth to date. Preliminary respiratory culture appears to be normal respiratory mike. General: Alert, Cooperative, No apparent distress HEENT: Atraumatic, PERRLA, Normocephalic Oral: No Gingival or Mucosal Lesions/ Ulcerations Neck: Supple, No Nodes, Trachea Midline Lungs: No rhonchi, No wheeze, Diminished, - - Continued bibasilar rales Cardiovascular: Regular rate, Regular Rhythm, Normal S1, Normal S2, No murmurs Abdomen: Bowel Sounds Present, Soft, Non Tender, Non-Distended Extremities: No cyanosis, No edema, Clubbing Skin: No breakdown Musculoskeletal: No Muscle Wasting Lymphatic: No Cervical, Supraclavicular, or Inguinal Adenopathy Neurological: Cranial nerves II-XII grossly intact, Neuro grossly intact Psych/Mental Status: Alert and oriented to time, place, person, mood and affect Vital Signs Temp Pulse Resp BP Pulse Ox 36.8 C 78 19 H 123/78 H 90 08/29/18 00:00 08/29/18 06:00 08/29/18 06:00 08/29/18 06:00 08/29/18 06:00 Oxygen Flow Rate (L/min) 10 Oxygen Delivery Method Nasal Cannula Weight: 191 lb 9.307 oz Body Mass Index (BMI) 28.9 Intake and Output for Last 24 Hours 08/27/18 08/28/18 08/29/18 23:59 23:59 23:59 Intake Total 2284.7 / 2284.7 1992.1 / 1991.1 1974.7 / 1974.7 Output Total 2575 / 2575 3575 / 3575 1850 / 1850 Balance -290.3 / -290.3 -1582.9 / -1582.9 125.7 / 125.7 Labs (Last 48 Hours) 08/27/18 08/28/18 08/28/18 05:15 05:15 05:15 WBC 26.7 H 20.7 H RBC 4.41 L 4.44 L Hgb 13.0 13.3 Hct 40.3 40.6 MCV 91.4 91.4 MCH 29.5 30.0 MCHC 32.3 32.8 RDW 13.4 13.3 RDW Differential 44.2 H 43.7 Plt Count 406 398 MPV 10.0 9.7 Immature Gran % (Auto) 0.500 0.800 Neut % (Auto) 88.4 H 86.5 H Lymph % (Auto) 6.8 L 6.4 L [place] % (Auto) 4.2 6.3 Eos % (Auto) 0.0 0.0 Baso % (Auto) 0.1 0.0 Absolute Neuts (auto) 23.6 H 17.9 H Absolute Lymphs (auto) 1.81 1.33 Total Counted Not Reportable Not Reportable Differential Comment Platelet Estimate SLT INC RBC Morphology 1+ Anisocytosis 1+ PT INR APTT Sodium 138 Potassium 4.0 Chloride 100 Carbon Dioxide 28.0 Anion Gap 10 BUN 20 H Creatinine 0.83 Estim Creat Clear Calc 76.90 Est GFR (MDRD) Af Amer 116 Est GFR (MDRD) Non-Af 96 BUN/Creatinine Ratio 24.1 H Glucose 182 H Calcium 8.3 L Magnesium 08/28/18 08/28/18 08/28/18 05:15 10:25 17:15 WBC RBC Hgb Hct MCV MCH MCHC RDW RDW Differential Plt Count MPV Immature Gran % (Auto) Neut % (Auto) Lymph % (Auto) [place] % (Auto) Eos % (Auto) Baso % (Auto) Absolute Neuts (auto) Absolute Lymphs (auto) Total Counted Differential Comment Platelet Estimate RBC Morphology Anisocytosis PT 15.1 H INR 1.2 APTT 24.6 50.2 H Sodium Potassium Chloride Carbon Dioxide Anion Gap BUN Creatinine Estim Creat Clear Calc Est GFR (MDRD) Af Amer Est GFR (MDRD) Non-Af BUN/Creatinine Ratio Glucose Calcium Magnesium 2.2 08/29/18 08/29/18 08/29/18 01:35 04:55 04:55 WBC 18.2 H RBC 4.18 L Hgb 12.4 L Hct 38.1 L MCV 91.1 MCH 29.7 MCHC 32.5 RDW 13.4 RDW Differential 44.2 H Plt Count 341 MPV 9.6 Immature Gran % (Auto) 1.600 H Neut % (Auto) 84.1 H Lymph % (Auto) 8.7 L [place] % (Auto) 5.4 Eos % (Auto) 0.0 Baso % (Auto) 0.2 Absolute Neuts (auto) 15.3 H Absolute Lymphs (auto) 1.58 Total Counted Not Reportable Differential Comment Platelet Estimate RBC Morphology Anisocytosis PT INR APTT 56.9 H Sodium Cancelled Potassium Cancelled Chloride Cancelled Carbon Dioxide Cancelled Anion Gap Cancelled BUN Cancelled Creatinine Cancelled Estim Creat Clear Calc Cancelled Est GFR (MDRD) Af Amer Cancelled Est GFR (MDRD) Non-Af Cancelled BUN/Creatinine Ratio Cancelled Glucose Cancelled Calcium Cancelled Magnesium 08/29/18 06:07 WBC RBC Hgb Hct MCV MCH MCHC RDW RDW Differential Plt Count MPV Immature Gran % (Auto) Neut % (Auto) Lymph % (Auto) [place] % (Auto) Eos % (Auto) Baso % (Auto) Absolute Neuts (auto) Absolute Lymphs (auto) Total Counted Differential Comment Platelet Estimate RBC Morphology Anisocytosis PT INR APTT Sodium Pending Potassium Pending Chloride Pending Carbon Dioxide Pending Anion Gap Pending BUN Pending Creatinine Pending Estim Creat Clear Calc Est GFR (MDRD) Af Amer Pending Est GFR (MDRD) Non-Af Pending BUN/Creatinine Ratio Pending Glucose Pending Calcium Pending Magnesium Microbiology 08/26/18 10:55 Sputum, Expectorated/Coughed Gram Stain - Final 08/26/18 10:55 Sputum, Expectorated/Coughed Respiratory Culture - Preliminary Presumptive C albicans Clinical Impression(s) from Imaging Studies Chest X-Ray 08/24/18 01:19 IMPRESSION: Increasing right-sided airspace consolidation and left-sided airspace consolidation since previous study consistent with pneumonia. Electronically Signed: Carmencita Barron MD at 2:01 EST , Service support , Chest CT 08/24/18 11:20 IMPRESSION: Changes compatible with a progressive pulmonary fibrosis with evidence of honeycombing and bronchiectasis. This is worse in the right hemithorax. Enlarged bilateral axillary lymph nodes. Electronically Signed: Joseph Sheriff MD at 12:53 EST Tel [phone], Service support , Medical Necessity - Tobacco Use Smoking Status: Former smoker Assessment/Plan All Active Problems (Last Reviewed 08/24/18 @ 03:05 by Andrés Mane MD) Community acquired pneumonia (Acute) Hypoxemia (Acute) History of bilateral cataract extraction (Resolved) Status post trigger finger release (Resolved) History of cholecystectomy (Resolved) History of bilateral carpal tunnel release (Resolved) History of prostatectomy (Resolved) History of coronary artery bypass graft x 3 (Resolved) History of colonoscopy (Resolved) RECOMMENDATIONS: 1. Continue antibiotics as ordered to complete treatment course. 2. Continue scheduled bronchodilators. 3. Continue IV steroids. 4. Continue scheduled Lasix as ordered. 5. Continue heparin drip, given preliminary report of lower extremity DVTs. 6. Wean supplemental oxygen as tolerated. Goal oxygen saturation at or above 88%. 7. Encourage aggressive incentive spirometer use and mobilize patient as elevated. IMPRESSIONS: 1. Acute hypoxic respiratory failure/underlying mixed ventilatory defect with exacerbation/bronchiectasis Likely multifactorial in etiology. While the patient did have what appeared to be the beginning stages of an interstitial lung process in April, a high resolution chest CT obtained during this hospitalization revealed significant interval worsening in the patient's fibrotic interstitial lung disease. While I cannot discount the possibility for underlying pulmonary infectious process, the patient has known bronchiectasis which could be contributing to his current cough complaints. In addition, a surface echocardiogram did reveal evidence of diastolic dysfunction and pulmonary hypertension. My clinical concern is that the patient's evolving interstitial lung process could be the consequence of idiopathic pulmonary fibrosis versus fibrosing NSIP, given that the patient was recently identified as having rheumatoid arthritis. Therefore, he will be continued on IV steroids. He will also be continued on antibiotics. BiPAP will continue to be utilized as needed. We will continue to wean supplemental oxygen as tolerated to maintain a saturation at or above 88%. Bronchodilators will be continued. In essence, the patient either has a steroid responsive interstitial lung proces s or a non-steroid responsive interstitial lung process, with idiopathic pulmonary fibrosis being a non-steroid responsive lung disease. While the patient does have some overlap radiographically between potential NSIP and IPF, my concern is that he does not appear to be responding readily to steroids. If the patient's lung disease is truly related to IPF, there would be no treatment to reverse the fibrotic changes that have already taken place. 2. Heart failure with preserved ejection fraction/pulmonary hypertension The patient's pulmonary hypertension is most likely the consequence of his underlying pulmonary process coupled with hypoxia. Continue current supportive measures as noted above. The patient will be continued on Lasix 40 mg twice daily. 3. Lower extremity DVTs Given the patient's refractory hypoxia, there was concern for venous thromboembolic disease. However, the patient had a reported allergy to contrast, which precluded our ability to obtain a CTA chest. Therefore, lower extremity Dopplers were obtained, which was preliminarily reported as being positive for DVTs. The patient then was placed on a heparin drip. 4. Recently diagnosed rheumatoid arthritis and MGUS The patient was referred to rheumatology from the office of Dr. Hein after he was noted to have a positive rheumatoid factor and anti-CCP antibody. However, the coding director identified an abnormal M protein, which prompted a referral to Dr. Sol of hematology. I personally discussed the patient with Dr. 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 I do feel that it will be imperative that the patient return to the coding director as quickly as possible to be started on therapy for his underlying rheumatologic disease, as this could be contributing to his current lung manifestations. I did call and speak with the patient's coding director, Dr. Moise, at the [facility] ([phone]), who indicated that it was his intention to start the patient on a medication like Imuran, once he was cleared by hematology. We will plan to call the patient's coding director office once the patient has been medically stabilized for discharge to set up an expedited follow-up office visit. He is currently scheduled for a follow-up visit on October 12. Prior history of tobacco abuse/hypertension/GERD Complicates care, management, recovery and prognosis. Continue home medications as indicated. This note was generated with [employer] dictation software. It may contain incorrect words, spelling, and punctuation that were not noted in checking the note before signing. Code Visit Inpatient E&M: 35319 Subs Hosp L3
[2018-08-29 06:26] LABS: Absolute Lymphocyte Count 2.01 X10^3/ul (0.83-4.51); Absolute Neutrophil Count 17.8 X10^3/uL (2.0-7.7); Basophil# 0.11 X10^3/uL; Basophil% 0.5 % (0-1); Hematocrit 41.7 % (40-54); Hemoglobin 13.6 g/dl (13.0-16.5); Lymphocyte # 2.01 X10^3/ul (4.0); Lymphocyte % 9.3 % (19-41); Mean Corp Hgb Conc 32.6 g/gl (32-36); Mean Corpuscular Hgb 29.6 pg (27.0-32.0); Mean Corpuscular Volume 90.8 fL (80-94); Mean Platelet Vol. 9.7 fl (6.2-12.0); Monocyte# 1.34 X10^3/uL; Monocyte% 6.2 % (0-10); Platelet Count 382 K/mm3 (150-450); RBC Distribution Width CV 13.3 % (11.6-14.6); RBC Distribution Width SD 43.7 fl (35.1-43.9); Red Blood Count 4.59 M/mm3 (4.6-6.2); White Blood Count 21.7 K/mm3 (4.4-11.0)
[2018-08-29 06:28] LABS: POSITIVE COUNT YES; POSITIVE DIFFERENTIAL NO; POSITIVE MORPHOLOGY YES
[2018-08-29 06:30] LABS: Anion Gap 11 (5-15); BUN 19 mg/dL (7-18); Calcium,Total 8.3 mg/dL (8.5-10.1); Chloride 99 mmol/L (98-107); Creatinine, Serum 0.83 mg/dL (0.70-1.30); EST Glomerular Filtration Rate 96 mL/min (>60); Est Glom Filt Rate - Afr Amer 117 mL/min (>60); Glucose 152 mg/dL (74-106); Sodium Level 138 mmol/L (136-145)
--- NOTE | 2018-08-29 06:41 | PCM.PROGNOTE ---
Patient Problems: Active and Suspected Problems (Last Reviewed 08/24/18 @ 03:05 by Andrés Mane MD) Community acquired pneumonia (Acute) Hypoxemia (Acute) Subjective: All events of the past 24 hours have been reviewed. Antibiotic Day #6 Levaquin TMAX: Afebrile since admission Vital signs: Blood pressure and heart rate are stable. The patient is 9292% saturated on high flow oxygen at 10 L Fluid balance: -3 L since admission, Lasix was increased to 40 mg twice daily yesterday with good results Urine output: 3575 on 08/28/2018 Weight: 191 pounds 9.3 ounces down from 201 pounds and 11.5 ounces at admission All radiologic testing was reviewed All labs were personally reviewed: White blood cell count remains elevated at 21.7. Hemoglobin and platelets are within normal limits. Electrolytes are within normal limits and the BUN is stable at 19 with a creatinine of 0.83 which is also stable. Microbiology: Respiratory panel, streptococcal antigen in the urine, Legionella antigen in the urine are all negative. Blood cultures had no growth in 48 hours. Sputum from 08/26/2018 is presumptive for Maria Luz albicans. ECHO: EF is 60% with stage I diastolic dysfunction. PA pressure is estimated at 44 mmHg. BM - small BM today but hard to pass Subjective: He feels as though he is improving. He is better able to get his sputum up today. He denies nausea, vomiting, abdominal pain. Objective: General: Alert, cooperative, able to follow commands, oriented X 3, no apparent distress, sitting in a chair at the bedside with his family HEENT: PERRLA, EOMI, Atraumatic, normocephalic, no scleral icterus, no carotid bruits, no JVD Lungs: still with rales in the bases (L>R), no wheezes, symmetric chest expansion, no conversational dyspnea while at rest, no accessory muscle use Heart: RRR, no MM, no gallop, no rub, normal S1, normal S2, no murmur Abdomen: Soft, nontender, nondistended, bowel sounds present, no guarding with palpation, no masses, no hepatosplenomegaly Extremities: Edema, + clubbing, no cyanosis Neuro: Cranial nerves II through XII grossly intact, Neuro grossly intact, no focal neurologic deficits Skin: Warm and dry, no wounds, no rashes, no jaundice Psych: Normal affect, Appropriate - Physical Exam Vital Signs Temp Pulse Resp BP Pulse Ox 98.2 F 78 19 H 123/78 H 90 08/29/18 00:00 08/29/18 06:00 08/29/18 06:00 08/29/18 06:00 08/29/18 06:00 Oxygen Flow Rate (L/min) 10 Oxygen Delivery Method Nasal Cannula Weight: 191 lb 9.307 oz Body Mass Index (BMI) 28.9 Intake and Output for Last 24 Hours 08/27/18 08/28/18 08/29/18 23:59 23:59 23:59 Intake Total 2284.7 / 2284.7 1992.1 / 1991.1 1975.7 / 1974.7 Output Total 2575 / 2575 3575 / 3575 1850 / 1850 Balance -290.3 / -290.3 -1582.9 / -1582.9 125.7 / 125.7 Microbiology Past 72 Hours 08/26/18 10:55 Gram Stain - Final Sputum, Expectorated/Coughed Respiratory Culture - Preliminary Presumptive C albicans 08/24/18 01:30 Blood Culture - Preliminary Blood Culture (Wb) - Anticubital Right No growth in 48 hours. 08/24/18 01:16 Blood Culture - Preliminary Blood Culture (Wb) - Anticubital Left No growth in 48 hours. 08/24/18 03:16 Urine Culture - Final Urine, Random Culture exhibits no growth. 08/24/18 01:24 Gram Stain - Final Sputum, Expectorated/Coughed Respiratory Culture - Final Laboratory Tests Past 24 Hrs 08/28/18 08/28/18 08/28/18 05:15 10:25 17:15 WBC Corrected WBC RBC Hgb Hct MCV MCH MCHC RDW RDW Differential Plt Count MPV Immature Gran % (Auto) Neut % (Auto) Lymph % (Auto) [place] % (Auto) Eos % (Auto) Baso % (Auto) Immature Gran # (Auto) Absolute Neuts (auto) Absolute Lymphs (auto) Absolute Monos (auto) Total Counted Neutrophils % (Manual) Band Neutrophils % Lymphocytes % (Manual) Monocytes % (Manual) Eosinophils % (Manual) Basophils % (Manual) Metamyelocytes % Myelocytes % Promyelocytes % Blast Cells % Plasma Cell % (Manual) Other Cells % Lymphocytes # Nucleated RBCs/100 WBC Differential Comment Diff Path Review Hypersegmented Neuts Atypical Lymphocytes Reactive Lymphocytes Smudge Cells Eosinophilia # Basophilia # Toxic Granulation Dohle Bodies Fior Rods Platelet Estimate Plt Morphology Comment RBC Morphology Polychromasia Hypochromasia Poikilocytosis Basophilic Stippling Anisocytosis Microcytosis Macrocytosis Spherocytes Sickle Cells Target Cells Tear Drop Cells Ovalocytes Stomatocytes Giron-[place] Bodies Elyssa Cells Bite Cells Acanthocytes (Spur) Rouleaux Schistocytes PT 15.1 H INR 1.2 APTT 24.6 50.2 H Sodium Potassium Chloride Carbon Dioxide Anion Gap BUN Creatinine Estim Creat Clear Calc Est GFR (MDRD) Af Amer Est GFR (MDRD) Non-Af BUN/Creatinine Ratio Glucose Calcium Magnesium 2.2 08/29/18 08/29/18 08/29/18 01:35 04:55 04:55 WBC Cancelled Corrected WBC Cancelled RBC Cancelled Hgb Cancelled Hct Cancelled MCV Cancelled MCH Cancelled MCHC Cancelled RDW Cancelled RDW Differential Cancelled Plt Count Cancelled MPV Cancelled Immature Gran % (Auto) Cancelled Neut % (Auto) Cancelled Lymph % (Auto) Cancelled [place] % (Auto) Cancelled Eos % (Auto) Cancelled Baso % (Auto) Cancelled Immature Gran # (Auto) Cancelled Absolute Neuts (auto) Cancelled Absolute Lymphs (auto) Cancelled Absolute Monos (auto) Cancelled Total Counted Cancelled Neutrophils % (Manual) Cancelled Band Neutrophils % Cancelled Lymphocytes % (Manual) Cancelled Monocytes % (Manual) Cancelled Eosinophils % (Manual) Cancelled Basophils % (Manual) Cancelled Metamyelocytes % Cancelled Myelocytes % Cancelled Promyelocytes % Cancelled Blast Cells % Cancelled Plasma Cell % (Manual) Cancelled Other Cells % Cancelled Lymphocytes # Cancelled Nucleated RBCs/100 WBC Cancelled Differential Comment Cancelled Diff Path Review Cancelled Hypersegmented Neuts Cancelled Atypical Lymphocytes Cancelled Reactive Lymphocytes Cancelled Smudge Cells Cancelled Eosinophilia # Cancelled Basophilia # Cancelled Toxic Granulation Cancelled Dohle Bodies Cancelled Fior Rods Cancelled Platelet Estimate Cancelled Plt Morphology Comment Cancelled RBC Morphology Cancelled Polychromasia Cancelled Hypochromasia Cancelled Poikilocytosis Cancelled Basophilic Stippling Cancelled Anisocytosis Cancelled Microcytosis Cancelled Macrocytosis Cancelled Spherocytes Cancelled Sickle Cells Cancelled Target Cells Cancelled Tear Drop Cells Cancelled Ovalocytes Cancelled Stomatocytes Cancelled Giron-[place] Bodies Cancelled [place] Cells Cancelled Bite Cells Cancelled Acanthocytes (Spur) Cancelled Rouleaux Cancelled Schistocytes Cancelled PT INR APTT 56.9 H Sodium Cancelled Potassium Cancelled Chloride Cancelled Carbon Dioxide Cancelled Anion Gap Cancelled BUN Cancelled Creatinine Cancelled Estim Creat Clear Calc Cancelled Est GFR (MDRD) Af Amer Cancelled Est GFR (MDRD) Non-Af Cancelled BUN/Creatinine Ratio Cancelled Glucose Cancelled Calcium Cancelled Magnesium 08/29/18 08/29/18 06:07 06:07 WBC 21.7 H Corrected WBC RBC 4.59 L Hgb 13.6 Hct 41.7 MCV 90.8 MCH 29.6 MCHC 32.6 RDW 13.3 RDW Differential 43.7 Plt Count 382 MPV 9.7 Immature Gran % (Auto) 2.000 H Neut % (Auto) 82.0 H Lymph % (Auto) 9.3 L [place] % (Auto) 6.2 Eos % (Auto) 0.0 Baso % (Auto) 0.5 Immature Gran # (Auto) Absolute Neuts (auto) 17.8 H Absolute Lymphs (auto) 2.01 Absolute Monos (auto) Total Counted Not Reportable Neutrophils % (Manual) Band Neutrophils % Lymphocytes % (Manual) Monocytes % (Manual) Eosinophils % (Manual) Basophils % (Manual) Metamyelocytes % Myelocytes % Promyelocytes % Blast Cells % Plasma Cell % (Manual) Other Cells % Lymphocytes # Nucleated RBCs/100 WBC Differential Comment Diff Path Review Hypersegmented Neuts Atypical Lymphocytes Reactive Lymphocytes Smudge Cells Eosinophilia # Basophilia # Toxic Granulation Dohle Bodies Fior Rods Platelet Estimate Plt Morphology Comment RBC Morphology Polychromasia Hypochromasia Poikilocytosis Basophilic Stippling Anisocytosis Microcytosis Macrocytosis Spherocytes Sickle Cells Target Cells Tear Drop Cells Ovalocytes Stomatocytes [place] Bodies [place] Cells Bite Cells Acanthocytes (Spur) Rouleaux Schistocytes PT INR APTT Sodium 138 Potassium 4.0 Chloride 99 Carbon Dioxide 28.0 Anion Gap 11 BUN 19 H Creatinine 0.83 Estim Creat Clear Calc 76.90 Est GFR (MDRD) Af Amer 117 Est GFR (MDRD) Non-Af 96 BUN/Creatinine Ratio 23.0 H Glucose 152 H Calcium 8.3 L Magnesium Medical Necessity - Tobacco Use Smoking Status: Former smoker Assessment/Plan All Active Problems (Last Reviewed 08/24/18 @ 03:05 by Andrés Mane MD) Community acquired pneumonia (Acute) Hypoxemia (Acute) History of bilateral cataract extraction (Resolved) Status post trigger finger release (Resolved) History of cholecystectomy (Resolved) History of bilateral carpal tunnel release (Resolved) History of prostatectomy (Resolved) History of coronary artery bypass graft x 3 (Resolved) History of colonoscopy (Resolved) Impressions 1. Acute on chronic hypoxic respiratory failure-likely multifactorial secondary to mixed ventilatory defect, possible interstitial lung disease versus idiopathic pulmonary fibrosis, bronchiectasis and possible excess etiology as well. 2. Monoclonal gammopathy of undetermined significance-followed by Dr. Sol 3. Congestive heart failure with preserved ejection fraction-possibly secondary to diastolic dysfunction 4. Coronary artery disease-status post CABG 5. Rheumatoid arthritis-followed by Dr. Hall's at the [facility] 6. Bilateral lower extremity DVT-diagnosed on venous ultrasound 08/28/2018-currently on a heparin infusion 7. Hyperglycemia-likely secondary to high-dose Solu-Medrol Complete 7 days of Levaquin Continue high-dose intravenous steroids Start Xarelto 15 mg p.o. twice daily and discontinue heparin 1 hour after the first dose Continue aerosol treatments BiPAP as needed for episodic shortness of breath Continue supplemental high flow oxygen Continue diuresis Code Visit Inpatient E&M: 22536 [facility] Hosp L3
[2018-08-29 08:51] LABS: Partial Thromboplast Time 51.3 Seconds (24.1-36.2)
--- NOTE | 2018-08-29 09:41 | CM.UR ---
Participated in interdisciplinary rounds. Patient alert and awake. He plans to go home with [facility]. Met face to face after rounds to see if he had decided on an agency as of yet because he was given list of in-network providers. States his son took it home and no they hadn't decided. States, I'm not sure I can afford it. Explained that the home care agency will tell him up front if there are any copays associated with services and he can decide then. Explained he can even ask via phone when they call him to set up services if they know yet. Verbalizes understanding and states he has had home care before. Verb understanding. Nikolas Raphael, KEYONNA, CCM.
[2018-08-29] MEDS: Heparin Injection (Vial) 5,000 UNIT/ML VIAL IV (10:19)
[2018-08-29] MEDS: Glycerin/Hypromellose/PEG400 15 ml Bottle 2 DRP EACH EYE ×3 (10:20→23:24)
[2018-08-29] MEDS: Pantoprazole Sodium 20 MG Tablet PO (10:20)
[2018-08-29] MEDS: Furosemide 40 MG/4 ML Vial IV ×2 (10:20→18:30)
[2018-08-29] MEDS: guaiFENesin 1,200 MG Tablet 1200 MG PO ×2 (10:21→21:24)
[2018-08-29] MEDS: amLODIPine 10 MG Tablet PO (10:21)
[2018-08-29] MEDS: Metoprolol Tartrate 25 MG Tablet PO ×2 (10:21→21:24)
[2018-08-29] MEDS: Multivitamins,Therapeutic Tablet 1 TABLET PO (10:21)
[2018-08-29] MEDS: Aspirin E.C. 81 MG Tablet PO (10:21)
[2018-08-29] MEDS: Ipratropium Bromide 0.06% NASAL SPRAY 2 SPRAY NASAL ×2 (10:23→21:24)
[2018-08-29] MEDS: CHLORHEXIDINE GLUC 2% CLOTH 1 EACH TOWELETTE TOPICAL (13:04)
[2018-08-29] MEDS: Rivaroxaban 15 MG Tablet PO (14:55)
--- NOTE | 2018-08-29 16:50 | CPS ---
using on own
[2018-08-29] MEDS: Senna/Docusate Sodium 1 Tablet PO (21:24)
[2018-08-30] VITALS (38 sets, daily range): BP systolic 109–143; BP diastolic 67–89; PULSE 68–98; RESP 12–25; TEMP 36.1–36.7; O2SAT 84–98
[2018-08-30] MEDS: Ipratropium/Albuterol Sulfate 3 ML AMPUL.NEB INHALATION ×6 (02:32→22:58)
[2018-08-30] MEDS: Glycerin/Hypromellose/PEG400 15 ml Bottle 2 DRP EACH EYE ×4 (04:58→20:15)
[2018-08-30] MEDS: levoFLOXacin 750 MG Tablet PO (05:00)
--- NOTE | 2018-08-30 06:54 | CPS ---
Pt USING PEP ON OWN.
--- NOTE | 2018-08-30 06:55 | PN_ITS ---
Patient Problems: Active and Suspected Problems (Last Reviewed 08/24/18 @ 03:05 by Andrés Mane MD) Community acquired pneumonia (Acute) Hypoxemia (Acute) Subjective: All events the past 24 hours of been reviewed. He remains afebrile. Today is day 7 of Levaquin and it will be discontinued Blood pressure and heart rate are stable. He is 94% saturated on a 12 L nasal cannula and has been requiring 14 L when he is up in a chair and active. He has not been wearing CPAP for the past 48 hours Fluid balance is -4517 since admission. Urine output on 08/29/2018 was 4955. Lab: Creatinine is stable at 0.82 but the BUN is increasing and today is 22, up from 19 on 08/29/2018. Radiology: Chest x-ray is essentially unchanged from 08/24/2018 despite antibiotics and high-dose steroids Telemetry: Normal sinus rhythm with periods of either wide complex accelerated idioventricular rhythm versus bundle branch block....it is irregular at times Subjective: he has no complaints today other than nasal congestion and dryness........no improvement with the Atrovent nasal spray Objective: General: Alert, cooperative, able to follow commands, oriented X 3, no apparent distress, good oral intake HEENT: PERRLA, EOMI, Atraumatic, normocephalic, no scleral icterus, no carotid bruits, no JVD Lungs: still with coarse rales in the bases (L>R), no wheezes, no rhonchi, symmetric chest expansion, no conversational dyspnea while at rest, no accessory muscle use Heart: RRR, no MM, no gallop, no rub, normal S1, normal S2, Abdomen: Soft, nontender, nondistended, bowel sounds present, no guarding with palpation, no masses, no hepatosplenomegaly Extremities: No edema, + clubbing, no cyanosis Neuro: Cranial nerves II through XII grossly intact, Neuro grossly intact, no focal neurologic deficits Skin: Warm and dry, no wounds, no rashes, no jaundice Psych: Normal affect, Appropriate - Physical Exam Vital Signs Temp Pulse Resp BP Pulse Ox 97.0 F L 68 16 115/67 94 08/30/18 04:48 08/30/18 04:48 08/30/18 04:48 08/30/18 04:48 08/30/18 04:48 Oxygen Flow Rate (L/min) 12 Oxygen Delivery Method Nasal Cannula Weight: 192 lb 3.889 oz Body Mass Index (BMI) 28.9 Intake and Output for Last 24 Hours 08/28/18 08/29/18 08/30/18 23:59 23:59 23:59 Intake Total 1992.1 / 1992.1 3557.2 / 3557.2 Output Total 3575 / 3575 4955 / 4955 Balance -1582.9 / -1582.9 -1397.8 / -1397.8 Microbiology Past 72 Hours 08/26/18 10:55 Gram Stain - Final Sputum, Expectorated/Coughed Respiratory Culture - Final Presumptive C albicans 08/24/18 01:16 Blood Culture - Final Blood Culture (Wb) - Anticubital Left No growth in 5 days. 08/24/18 01:30 Blood Culture - Final Blood Culture (Wb) - Anticubital Right No growth in 5 days. Laboratory Tests Past 24 Hrs 08/29/18 08/29/18 06:07 08:30 Diff Path Review February APTT 51.3 H Medical Necessity - Tobacco Use Smoking Status: Former smoker Assessment/Plan All Active Problems (Last Reviewed 08/24/18 @ 03:05 by Andrés Mane MD) Community acquired pneumonia (Acute) Hypoxemia (Acute) History of bilateral cataract extraction (Resolved) Status post trigger finger release (Resolved) History of cholecystectomy (Resolved) History of bilateral carpal tunnel release (Resolved) History of prostatectomy (Resolved) History of coronary artery bypass graft x 3 (Resolved) History of colonoscopy (Resolved) Impressions 1. Acute on chronic hypoxic respiratory failure-likely multifactorial secondary to mixed ventilatory defect, possible interstitial lung disease versus idiopathic pulmonary fibrosis, bronchiectasis and possible infectious etiology as well. Unfortunately the CXR has not improved with high dose steroids and antibiotics making IPF more likely than ILD or infectious etiology 2. Monoclonal gammopathy of undetermined significance-followed by Dr. Sol 3. Congestive heart failure with preserved ejection fraction-possibly secondary to diastolic dysfunction 4. Coronary artery disease-status post CABG 5. Rheumatoid arthritis-followed by Dr. Garcias at the [facility] 6. Bilateral lower extremity DVT-diagnosed on venous ultrasound 08/28/2018- currently on a heparin infusion 7. Hyperglycemia-likely secondary to high-dose Solu-Medrol 8. Hemorrhoidal bleeding-mild, hemoglobin stable Complete 7 days of Levaquin Continue high-dose intravenous steroids Started Xarelto 15 mg p.o. twice daily on 08/29/2018 ... Will need 21 days total of Xarelto 15 mg p.o. twice daily and then can be converted to 20 mg once daily Continue aerosol treatments BiPAP as needed for episodic shortness of breath Continue supplemental high flow oxygen Continue diuresis Afrin for nasal congestion and [place] spray and nasal saline gel to keep the nasal mucosa moist Recheck BMP and magnesium in the a.m. Check a blood sugar prior to lunch and 2 hours after lunch..... Fasting sugars have been high Discussed with Dr. Hein. We will continue Solu-Medrol 40 mg IV every 6 hours and around the clock DuoNeb aerosol treatments. Code Visit Inpatient E&M: 16368 Subs Hosp L3
[2018-08-30 07:21] LABS: Anion Gap 8 (5-15); BUN 22 mg/dL (7-18); BUN/Creat Ratio 26.7 RATIO (10-20); Calcium,Total 8.2 mg/dL (8.5-10.1); Chloride 97 mmol/L (98-107); Creatinine, Serum 0.82 mg/dL (0.70-1.30); EST Glomerular Filtration Rate 97 mL/min (>60); Est Glom Filt Rate - Afr Amer 117 mL/min (>60); Estimated Creatinine Clearance 77.84 ml/min; Glucose 148 mg/dL (74-106); Potassium 3.8 mmol/L (3.5-5.1); Sodium Level 135 mmol/L (136-145)
--- NOTE | 2018-08-30 07:38 | RAD_ITS ---
STUDY: X-RAY CHEST REASON FOR EXAM: Male, 73 years old. Shortness of breath. TECHNIQUE: Single AP portable view of the chest. COMPARISON: CT of the chest dated August 24, 2018. FINDINGS: Cardiac monitoring leads are present. Patient is status post sternotomy. The lungs are expanded. There are persistent mixed interstitial and airspace opacities in the periphery of both lungs, right more severe than on the left. There are patchy lucencies in both lungs as well that may represent represent sequela of COPD. There is no demonstrated pleural abnormality. There is mild cardiac enlargement. Normal mediastinum and carlos. There is prominence of the pulmonary hilar arteries without peripheral pulmonary vascular congestion, suggesting pulmonary hypertension. There is atherosclerotic calcification of the aortic arch with tortuosity. There is demineralization of the osseous structures. Normal visualized ribs, clavicles, and shoulders. There is no demonstrated abnormality of the visualized soft tissue structures of the upper abdomen. RAD/Chest 1 View IMPRESSION: Persistent bilateral peripheral mixed interstitial and air space opacities some of which maybe chronic. Acute disease unfortunately cannot be excluded. Electronically Signed: Carmencita Barron MD at 8:23 EST , Service support ,
--- NOTE | 2018-08-30 07:40 | PCM.PN.INT ---
Subjective: Patient did well overnight. Patient still reporting dyspnea with minimal exertion. Patient did respond to diuretic therapy well and patient reports subjective improvement in dyspnea. No chest pain is reported. Patient did not have any fevers overnight. Objective: Morning chest x-ray was personally reviewed and shows slightly more infiltrates compared to previous. Continues to have an interstitial background. General: Alert, Oriented x3, Cooperative, No apparent distress, - - No conversational dyspnea appreciated. Appears stated age. HEENT: Atraumatic, PERRLA, EOMI, Normocephalic, - - No scleral icterus or injection noted. Oral: Moist Mucosa, No Gingival or Mucosal Lesions/ Ulcerations Neck: Supple, No JVD, No Nodes, Trachea Midline Lungs: No rhonchi, No wheeze, Diminished, Rales, - - Symmetric expansion. No dullness to percussion. Cardiovascular: Regular rate, Regular Rhythm, Normal S1, Normal S2, No murmurs, No rub noted, No Gallop Abdomen: Bowel Sounds Present, Soft, Non Tender, Non-Distended Extremities: No cyanosis, No edema, Clubbing Skin: No rashes, No breakdown Musculoskeletal: No Tenderness to Palpation of Joints or Extremities Lymphatic: No Cervical, Supraclavicular, or Inguinal Adenopathy Neurological: Cranial nerves II-XII grossly intact, Neuro grossly intact, Motor Exam 5/5 strength throughout Psych/Mental Status: Alert and oriented to time, place, person, mood and affect Vital Signs Temp Pulse Resp BP Pulse Ox 36.6 C 96 18 127/70 H 90 08/30/18 06:00 08/30/18 07:35 08/30/18 06:30 08/30/18 06:00 08/30/18 06:30 Oxygen Flow Rate (L/min) 12 Oxygen Delivery Method Nasal Cannula Weight: 87.2 kg Body Mass Index (BMI) 28.9 Intake and Output for Last 24 Hours 08/28/18 08/29/18 08/30/18 23:59 23:59 23:59 Intake Total 1991.1 / 1991.1 3557.2 / 3557.2 100 / 100 Output Total 3575 / 3575 4955 / 4955 300 / 300 Balance -1582.9 / -1582.9 -1397.8 / -1397.8 -200 / -200 Labs (Last 48 Hours) 08/28/18 08/28/18 08/28/18 05:15 10:25 17:15 WBC Corrected WBC RBC Hgb Hct MCV MCH MCHC RDW RDW Differential Plt Count MPV Immature Gran % (Auto) Neut % (Auto) Lymph % (Auto) [place] % (Auto) Eos % (Auto) Baso % (Auto) Immature Gran # (Auto) Absolute Neuts (auto) Absolute Lymphs (auto) Absolute Monos (auto) Total Counted Neutrophils % (Manual) Band Neutrophils % Lymphocytes % (Manual) Monocytes % (Manual) Eosinophils % (Manual) Basophils % (Manual) Metamyelocytes % Myelocytes % Promyelocytes % Blast Cells % Plasma Cell % (Manual) Other Cells % Lymphocytes # Nucleated RBCs/100 WBC Differential Comment Diff Path Review Hypersegmented Neuts Atypical Lymphocytes Reactive Lymphocytes Smudge Cells Eosinophilia # Basophilia # Toxic Granulation Dohle Bodies Fior Rods Platelet Estimate Plt Morphology Comment RBC Morphology Polychromasia Hypochromasia Poikilocytosis Basophilic Stippling Anisocytosis Microcytosis Macrocytosis Spherocytes Sickle Cells Target Cells Tear Drop Cells Ovalocytes Stomatocytes [place] Bodies Elyssa Cells Bite Cells Acanthocytes (Spur) Rouleaux Schistocytes PT 15.1 H INR 1.2 APTT 24.6 50.2 H Sodium Potassium Chloride Carbon Dioxide Anion Gap BUN Creatinine Estim Creat Clear Calc Est GFR (MDRD) Af Amer Est GFR (MDRD) Non-Af BUN/Creatinine Ratio Glucose Calcium Magnesium 2.2 08/29/18 08/29/18 08/29/18 01:35 04:55 04:55 WBC Cancelled Corrected WBC Cancelled RBC Cancelled Hgb Cancelled Hct Cancelled MCV Cancelled MCH Cancelled MCHC Cancelled RDW Cancelled RDW Differential Cancelled Plt Count Cancelled MPV Cancelled Immature Gran % (Auto) Cancelled Neut % (Auto) Cancelled Lymph % (Auto) Cancelled [place] % (Auto) Cancelled Eos % (Auto) Cancelled Baso % (Auto) Cancelled Immature Gran # (Auto) Cancelled Absolute Neuts (auto) Cancelled Absolute Lymphs (auto) Cancelled Absolute Monos (auto) Cancelled Total Counted Cancelled Neutrophils % (Manual) Cancelled Band Neutrophils % Cancelled Lymphocytes % (Manual) Cancelled Monocytes % (Manual) Cancelled Eosinophils % (Manual) Cancelled Basophils % (Manual) Cancelled Metamyelocytes % Cancelled Myelocytes % Cancelled Promyelocytes % Cancelled Blast Cells % Cancelled Plasma Cell % (Manual) Cancelled Other Cells % Cancelled Lymphocytes # Cancelled Nucleated RBCs/100 WBC Cancelled Differential Comment Cancelled Diff Path Review Cancelled Hypersegmented Neuts Cancelled Atypical Lymphocytes Cancelled Reactive Lymphocytes Cancelled Smudge Cells Cancelled Eosinophilia # Cancelled Basophilia # Cancelled Toxic Granulation Cancelled Dohle Bodies Cancelled Fior Rods Cancelled Platelet Estimate Cancelled Plt Morphology Comment Cancelled RBC Morphology Cancelled Polychromasia Cancelled Hypochromasia Cancelled Poikilocytosis Cancelled Basophilic Stippling Cancelled Anisocytosis Cancelled Microcytosis Cancelled Macrocytosis Cancelled Spherocytes Cancelled Sickle Cells Cancelled Target Cells Cancelled Tear Drop Cells Cancelled Ovalocytes Cancelled Stomatocytes Cancelled [place] Bodies Cancelled Elyssa Cells Cancelled Bite Cells Cancelled Acanthocytes (Spur) Cancelled Rouleaux Cancelled Schistocytes Cancelled PT INR APTT 56.9 H Sodium Cancelled Potassium Cancelled Chloride Cancelled Carbon Dioxide Cancelled Anion Gap Cancelled BUN Cancelled Creatinine Cancelled Estim Creat Clear Calc Cancelled Est GFR (MDRD) Af Amer Cancelled Est GFR (MDRD) Non-Af Cancelled BUN/Creatinine Ratio Cancelled Glucose Cancelled Calcium Cancelled Magnesium 08/29/18 08/29/18 08/29/18 06:07 06:07 08:30 WBC 21.7 H Corrected WBC RBC 4.59 L Hgb 13.6 Hct 41.7 MCV 90.8 MCH 29.6 MCHC 32.6 RDW 13.3 RDW Differential 43.7 Plt Count 382 MPV 9.7 Immature Gran % (Auto) 2.000 H Neut % (Auto) 82.0 H Lymph % (Auto) 9.3 L [place] % (Auto) 6.2 Eos % (Auto) 0.0 Baso % (Auto) 0.5 Immature Gran # (Auto) Absolute Neuts (auto) 17.8 H Absolute Lymphs (auto) 2.01 Absolute Monos (auto) Total Counted Not Reportable Neutrophils % (Manual) Band Neutrophils % Lymphocytes % (Manual) Monocytes % (Manual) Eosinophils % (Manual) Basophils % (Manual) Metamyelocytes % Myelocytes % Promyelocytes % Blast Cells % Plasma Cell % (Manual) Other Cells % Lymphocytes # Nucleated RBCs/100 WBC Differential Comment Diff Path Review May foll Hypersegmented Neuts Atypical Lymphocytes Reactive Lymphocytes Smudge Cells Eosinophilia # Basophilia # Toxic Granulation Dohle Bodies Fior Rods Platelet Estimate Plt Morphology Comment RBC Morphology Polychromasia Hypochromasia Poikilocytosis Basophilic Stippling Anisocytosis Microcytosis Macrocytosis Spherocytes Sickle Cells Target Cells Tear Drop Cells Ovalocytes Stomatocytes [place] Bodies Elyssa Cells Bite Cells Acanthocytes (Spur) Rouleaux Schistocytes PT INR APTT 51.3 H Sodium 138 Potassium 4.0 Chloride 99 Carbon Dioxide 28.0 Anion Gap 11 BUN 19 H Creatinine 0.83 Estim Creat Clear Calc 76.90 Est GFR (MDRD) Af Amer 117 Est GFR (MDRD) Non-Af 96 BUN/Creatinine Ratio 23.0 H Glucose 152 H Calcium 8.3 L Magnesium 08/30/18 06:57 WBC Corrected WBC RBC Hgb Hct MCV MCH MCHC RDW RDW Differential Plt Count MPV Immature Gran % (Auto) Neut % (Auto) Lymph % (Auto) [place] % (Auto) Eos % (Auto) Baso % (Auto) Immature Gran # (Auto) Absolute Neuts (auto) Absolute Lymphs (auto) Absolute Monos (auto) Total Counted Neutrophils % (Manual) Band Neutrophils % Lymphocytes % (Manual) Monocytes % (Manual) Eosinophils % (Manual) Basophils % (Manual) Metamyelocytes % Myelocytes % Promyelocytes % Blast Cells % Plasma Cell % (Manual) Other Cells % Lymphocytes # Nucleated RBCs/100 WBC Differential Comment Diff Path Review Hypersegmented Neuts Atypical Lymphocytes Reactive Lymphocytes Smudge Cells Eosinophilia # Basophilia # Toxic Granulation Dohle Bodies Fior Rods Platelet Estimate Plt Morphology Comment RBC Morphology Polychromasia Hypochromasia Poikilocytosis Basophilic Stippling Anisocytosis Microcytosis Macrocytosis Spherocytes Sickle Cells Target Cells Tear Drop Cells Ovalocytes Stomatocytes [place] Bodies Elyssa Cells Bite Cells Acanthocytes (Spur) Rouleaux Schistocytes PT INR APTT Sodium 135 L Potassium 3.8 Chloride 97 L Carbon Dioxide 30.0 Anion Gap 8 BUN 22 H Creatinine 0.82 Estim Creat Clear Calc 77.84 Est GFR (MDRD) Af Amer 117 Est GFR (MDRD) Non-Af 97 BUN/Creatinine Ratio 26.7 H Glucose 148 H Calcium 8.2 L Magnesium Microbiology 08/26/18 10:55 Sputum, Expectorated/Coughed Gram Stain - Final 08/26/18 10:55 Sputum, Expectorated/Coughed Respiratory Culture - Final Presumptive C albicans 08/24/18 01:16 Blood Culture (Wb) - Anticubital Left Blood Culture - Final No growth in 5 days. 08/24/18 01:30 Blood Culture (Wb) - Anticubital Right Blood Culture - Final No growth in 5 days. Medical Necessity - Tobacco Use Smoking Status: Former smoker Assessment/Plan All Active Problems (Last Reviewed 08/24/18 @ 03:05 by Andrés Mane MD) Community acquired pneumonia (Acute) Hypoxemia (Acute) History of bilateral cataract extraction (Resolved) Status post trigger finger release (Resolved) History of cholecystectomy (Resolved) History of bilateral carpal tunnel release (Resolved) History of prostatectomy (Resolved) History of coronary artery bypass graft x 3 (Resolved) History of colonoscopy (Resolved) RECOMMENDATIONS: 1. Continue antibiotics as ordered to complete treatment course. 2. Continue scheduled bronchodilators, IV steroids and scheduled Lasix 3. Continue heparin drip, given preliminary report of lower extremity DVTs. 4. Wean supplemental oxygen as tolerated. Goal oxygen saturation at or above 88%. 5. Encourage aggressive incentive spirometer use and mobilize patient as elevated. IMPRESSIONS: 1. Acute hypoxic respiratory failure/underlying mixed ventilatory defect with exacerbation/bronchiectasis/presumed PE Patient currently on steroids, bronchodilators and scheduled Lasix therapy. Patient is reporting some improvement following diuretic therapy. Patient also was found to have positive lower extremity Dopplers yesterday. Presumption for PE complicating current situation. Patient is on systemic anticoagulation. Patient has had rapid progression and fibrotic changes since I last saw him. Patient is requiring significant FiO2 to maintain saturations. Patient may be a candidate for pirfenidone as an outpatient. 2. Heart failure with preserved ejection fraction/pulmonary hypertension The patient's pulmonary hypertension is most likely the consequence of his underlying pulmonary process coupled with hypoxia. Continue current supportive measures as noted above. The patient will be continued on Lasix 40 mg twice daily. Goal -1-2 L of fluid balance daily. 3. Lower extremity DVTs Lower extremity Dopplers to show DVTs. Patient has been initiated on heparin drip. This will likely be transitioned over to a 10 a inhibitor once oxygenation improves. 4. Recently diagnosed rheumatoid arthritis and MGUS Patient was found to be positive rheumatoid factor and anti-CCP antibody. However, patient was also noted to have MGUS, so this is delayed any initiation of therapy. Patient has been consulted with the [facility] and Dr. Silva did discuss potential treatment options. Possible Imuran initiation if cleared by hematology. Patient is currently scheduled for a follow-up visit on October 12. Prior history of tobacco abuse/hypertension/GERD Complicates care, management, recovery and prognosis. Continue home medications as indicated. Code Visit Inpatient E&M: 53754 Subs Hosp L3
[2018-08-30] MEDS: Aspirin E.C. 81 MG Tablet PO (08:34)
[2018-08-30] MEDS: Multivitamins,Therapeutic Tablet 1 TABLET PO (08:34)
[2018-08-30] MEDS: Rivaroxaban 15 MG Tablet PO ×2 (08:35→17:56)
[2018-08-30] MEDS: guaiFENesin 1,200 MG Tablet 1200 MG PO ×2 (09:57→21:23)
[2018-08-30] MEDS: Senna/Docusate Sodium 1 Tablet PO ×2 (09:58→21:22)
[2018-08-30] MEDS: Metoprolol Tartrate 25 MG Tablet PO ×2 (09:58→21:23)
[2018-08-30] MEDS: Pantoprazole Sodium 20 MG Tablet PO (09:58)
[2018-08-30] MEDS: Furosemide 40 MG/4 ML Vial IV ×2 (09:58→17:55)
[2018-08-30] MEDS: amLODIPine 10 MG Tablet PO (09:58)
[2018-08-30] MEDS: Ipratropium Bromide 0.06% NASAL SPRAY 2 SPRAY NASAL ×2 (09:59→23:22)
[2018-08-30] MEDS: CHLORHEXIDINE GLUC 2% CLOTH 1 EACH TOWELETTE TOPICAL (10:00)
[2018-08-30] MEDS: 0.9% NaCl Peripheral Flush Adult/Peds IV ×4 (10:04→23:24)
[2018-08-30 10:16] LABS: Magnesium 2.2 mg/dL (1.6-2.6)
[2018-08-30 12:40] LABS: Bedside Glucose 231 mg/dL (70-110)
[2018-08-30 15:00] LABS: Bedside Glucose 228 mg/dL (70-110)
[2018-08-30] MEDS: Sodium Chloride 0.65% 1 SPRAY SPRAY.BTL 2 SPRAY NASAL (18:57)
[2018-08-31] VITALS (37 sets, daily range): BP systolic 108–147; BP diastolic 64–84; PULSE 64–111; RESP 13–26; TEMP 36.1–36.6; O2SAT 85–95
--- NOTE | 2018-08-31 00:32 | NURSING ---
PT SLEEPING SOUNDLY AND NOTED TO BE 95% ON 12 LN/C. TURNED DOWN TO 10 L N/C IN AN ATTEMPT TO WEAN. WILL MONITOR CLOSELY
--- NOTE | 2018-08-31 01:35 | NURSING ---
PT IS MAINTAINING HIS OXYGEN SATURATION ON 10 LN/C AT 94-95%
[2018-08-31] MEDS: Ipratropium/Albuterol Sulfate 3 ML AMPUL.NEB INHALATION ×6 (02:05→22:51)
[2018-08-31 04:22] LABS: Hemoglobin 14.4 g/dl (13.0-16.5); Mean Corp Hgb Conc 33.5 g/gl (32-36); Mean Corpuscular Hgb 30.1 pg (27.0-32.0); Mean Platelet Vol. 9.5 fl (6.2-12.0); Platelet Count 374 K/mm3 (150-450); RBC Distribution Width CV 13.2 % (11.6-14.6); RBC Distribution Width SD 43.7 fl (35.1-43.9); Red Blood Count 4.78 M/mm3 (4.6-6.2)
[2018-08-31 04:26] LABS: Differential Indicated MANUAL DIFF; POSITIVE COUNT YES; POSITIVE DIFFERENTIAL YES; POSITIVE MORPHOLOGY YES
[2018-08-31 04:27] LABS: White Blood Count 30.4 K/mm3 (4.4-11.0)
[2018-08-31] MEDS: Glycerin/Hypromellose/PEG400 15 ml Bottle 2 DRP EACH EYE ×3 (04:32→23:05)
[2018-08-31 04:49] LABS: Anion Gap 11 (5-15); BUN 26 mg/dL (7-18); BUN/Creat Ratio 28.3 RATIO (10-20); Calcium,Total 8.1 mg/dL (8.5-10.1); Chloride 97 mmol/L (98-107); Creatinine, Serum 0.92 mg/dL (0.70-1.30); EST Glomerular Filtration Rate 85 mL/min (>60); Est Glom Filt Rate - Afr Amer 103 mL/min (>60); Estimated Creatinine Clearance 69.38 ml/min; Glucose 168 mg/dL (74-106); Magnesium 2.4 mg/dL (1.6-2.6); Sodium Level 139 mmol/L (136-145)
[2018-08-31] MEDS: levoFLOXacin 750 MG Tablet PO (05:46)
--- NOTE | 2018-08-31 07:00 | NURSING ---
PT REPORTS HE HAD SOME BLOOD TINGED SPUTUM JUST NOW. POX ON 10 L N/C 86-88%. INCREASED 02 BACK UP TO 12 L N/C. DR GONZALEZ MADE AWARE OF HEMOPTYSIS. PT DENIES HAVING ANY EPISODES OF A BLOODY NOSE THIS AM
--- NOTE | 2018-08-31 07:11 | CPS ---
Patient on 12 lpm High Flow Nasal Cannula
--- NOTE | 2018-08-31 07:17 | PN_ITS ---
Subjective: Patient did okay overnight. Patient has been tolerating diuretic therapy. Patient continues to report a cough and this morning had mild hemoptysis. Patient also reports sinus congestion, but responds well to nasal saline. Patient did report some concern over the severity of his condition. Spoke with son at length yesterday. Patient's prognosis is severely guarded at this time. Patient is currently on anticoagulation and receiving diuretic therapy. Tentatively, plan on a family meeting on Friday to discuss goals of therapy. I this time, anticoagulation should have intended effect and diuretic therapy should show some response. Son is aware that this may represent IPF and prognosis would be poor at that time. Son reported some concern over anxiety with his mother and her health. General: Alert, Oriented x3, Cooperative, No apparent distress, - - No conversational dyspnea, but dyspnea with minimal exertion. HEENT: Atraumatic, PERRLA, EOMI, Normocephalic, - - No scleral icterus or injection noted. Oral: Moist Mucosa, No Gingival or Mucosal Lesions/ Ulcerations Neck: Supple, No JVD, No Nodes, Trachea Midline Lungs: No rhonchi, No wheeze, Diminished, Rales, - - Symmetric expansion. No dullness to percussion. Cardiovascular: Regular rate, Regular Rhythm, Normal S1, Normal S2, No murmurs, No rub noted, No Gallop Abdomen: Bowel Sounds Present, Soft, Non Tender, Non-Distended, Obese Extremities: No cyanosis, Capillary Refill Less than 3 Seconds, Clubbing Skin: - - No significant change compared to previous Musculoskeletal: No Tenderness to Palpation of Joints or Extremities, No Muscle Wasting Lymphatic: No Cervical, Supraclavicular, or Inguinal Adenopathy Neurological: Cranial nerves II-XII grossly intact, Neuro grossly intact, Motor Exam 5/5 strength throughout Psych/Mental Status: Alert and oriented to time, place, person, mood and affect Vital Signs Temp Pulse Resp BP Pulse Ox 36.4 C L 74 18 120/70 91 08/31/18 05:12 08/31/18 07:05 08/31/18 07:05 08/31/18 05:12 08/31/18 07:05 Oxygen Flow Rate (L/min) 12 Oxygen Delivery Method Nasal Cannula Weight: 87.6 kg Body Mass Index (BMI) 28.9 Intake and Output for Last 24 Hours 08/29/18 08/30/18 08/31/18 23:59 23:59 23:59 Intake Total 3557.2 / 3557.2 1645 / 1645 150 / 150 Output Total 4955 / 4955 2555 / 2555 380 / 380 Balance -1397.8 / -1397.8 -910 / -910 -230 / -230 Labs (Last 48 Hours) 08/29/18 08/30/18 08/30/18 08:30 06:57 06:57 WBC RBC Hgb Hct MCV MCH MCHC RDW RDW Differential Plt Count MPV Neut % (Auto) Absolute Neuts (auto) Total Counted APTT 51.3 H Sodium 135 L Potassium 3.8 Chloride 97 L Carbon Dioxide 30.0 Anion Gap 8 BUN 22 H Creatinine 0.82 Estim Creat Clear Calc 77.84 Est GFR (MDRD) Af Amer 117 Est GFR (MDRD) Non-Af 97 BUN/Creatinine Ratio 26.7 H Glucose 148 H Calcium 8.2 L Magnesium 2.2 POC Glucose 08/30/18 08/30/18 08/31/18 12:36 14:41 04:10 WBC RBC Hgb Hct MCV MCH MCHC RDW RDW Differential Plt Count MPV Neut % (Auto) Absolute Neuts (auto) Total Counted APTT Sodium 139 Potassium 4.0 Chloride 97 L Carbon Dioxide 31.0 Anion Gap 11 BUN 26 H Creatinine 0.92 Estim Creat Clear Calc 69.38 Est GFR (MDRD) Af Amer 103 Est GFR (MDRD) Non-Af 85 BUN/Creatinine Ratio 28.3 H Glucose 168 H Calcium 8.1 L Magnesium 2.4 POC Glucose 231 H 228 H 08/31/18 04:10 WBC 30.4 H* RBC 4.78 Hgb 14.4 Hct 43.0 MCV 90.0 MCH 30.1 MCHC 33.5 RDW 13.2 RDW Differential 43.7 Plt Count 374 MPV 9.5 Neut % (Auto) Not Reportable Absolute Neuts (auto) Not Reportable Total Counted Pending APTT Sodium Potassium Chloride Carbon Dioxide Anion Gap BUN Creatinine Estim Creat Clear Calc Est GFR (MDRD) Af Amer Est GFR (MDRD) Non-Af BUN/Creatinine Ratio Glucose Calcium Magnesium POC Glucose Microbiology 08/26/18 10:55 Sputum, Expectorated/Coughed Gram Stain - Final 08/26/18 10:55 Sputum, Expectorated/Coughed Respiratory Culture - Final Presumptive C albicans 08/24/18 01:16 Blood Culture (Wb) - Anticubital Left Blood Culture - Final No growth in 5 days. 08/24/18 01:30 Blood Culture (Wb) - Anticubital Right Blood Culture - Final No growth in 5 days. Clinical Impression(s) from Imaging Studies Chest X-Ray 08/30/18 07:38 IMPRESSION: Persistent bilateral peripheral mixed interstitial and air space opacities some of which maybe chronic. Acute disease unfortunately cannot be excluded. Electronically Signed: Carmencita Barron MD at 8:23 EST , Service support , Medical Necessity - Tobacco Use Smoking Status: Former smoker Assessment/Plan All Active Problems (Last Reviewed 08/24/18 @ 03:05 by Andrés Mane MD) Community acquired pneumonia (Acute) Hypoxemia (Acute) History of bilateral cataract extraction (Resolved) Status post trigger finger release (Resolved) History of cholecystectomy (Resolved) History of bilateral carpal tunnel release (Resolved) History of prostatectomy (Resolved) History of coronary artery bypass graft x 3 (Resolved) History of colonoscopy (Resolved) RECOMMENDATIONS: 1. Continue antibiotics as ordered to complete treatment course. 2. Continue scheduled bronchodilators, IV steroids and scheduled Lasix 3. Continue heparin drip, given report of lower extremity DVTs. 4. Wean supplemental oxygen as tolerated. Goal oxygen saturation at or above 88%. 5. Encourage aggressive incentive spirometer use and mobilize patient as elevated. IMPRESSIONS: 1. Acute hypoxic respiratory failure/underlying mixed ventilatory defect with exacerbation/bronchiectasis/presumed PE Patient currently on steroids, bronchodilators and scheduled Lasix therapy. Patient is reporting some improvement following diuretic therapy. Patient also was found to have positive lower extremity Dopplers. Presumption for PE complicating current situation. Patient is on systemic anticoagulation. Patient has had rapid progression and fibrotic changes since I last saw him. Patient is requiring significant FiO2 to maintain saturations. Patient may be a candidate for pirfenidone as an outpatient. Anticipate family meeting on Friday to discuss goals of therapy. We will keep patient on IV steroids until that time. 2. Heart failure with preserved ejection fraction/pulmonary hypertension The patient's pulmonary hypertension is most likely the consequence of his underlying pulmonary process coupled with hypoxia. Continue current supportive measures as noted above. The patient will be continued on Lasix 40 mg twice daily. Goal -1-2 L of fluid balance daily. 3. Lower extremity DVTs Lower extremity Dopplers to show DVTs. Patient has been initiated on heparin drip. This will likely be transitioned over to a 10 a inhibitor once oxygenation improves. 4. Recently diagnosed rheumatoid arthritis and MGUS Patient was found to be positive rheumatoid factor and anti-CCP antibody. However, patient was also noted to have MGUS, so this is delayed any initiation of therapy. Patient has been consulted with the [facility] and Dr. Silva did discuss potential treatment options. Possible Imuran initiation if cleared by hematology. Patient is currently scheduled for a follow-up visit on October 12. 5. Prior history of tobacco abuse/hypertension/GERD Complicates care, management, recovery and prognosis. Continue home medications as indicated. Code Visit Inpatient E&M: 26939 Subs Hosp L3
[2018-08-31] MEDS: Aspirin E.C. 81 MG Tablet PO (07:56)
[2018-08-31] MEDS: Multivitamins,Therapeutic Tablet 1 TABLET PO (07:56)
[2018-08-31] MEDS: Senna/Docusate Sodium 1 Tablet PO (07:57)
[2018-08-31] MEDS: Rivaroxaban 15 MG Tablet PO ×2 (07:57→18:19)
[2018-08-31] MEDS: Sodium Chloride 0.65% 1 SPRAY SPRAY.BTL 2 SPRAY NASAL (07:59)
--- NOTE | 2018-08-31 10:05 | CASEMGMT ---
SW spoke w/pt and daughter in room after rounds. Pt inquired about the cost of a portable concentrator. SW explained is not certain. SW explained that when pt leaves the hospital or rehab and oxygen is ordered, we can only get the larger concentrator and larger portable tanks. Once pt is home, pt can work w/his physician and the [employer] company to get the smaller concentrator. SW explained that insurance usually only pays for one or the other, not both. Pt inquired how much they cost to purchase. SW explained that they are between $2000-$3000 to purchase outright. SW suggested he could call insurance to see how it may be covered, however without it being prescribed yet or knowing what company he will be using, it may be difficult to determine his out of pocket cost if going through insurance. Pt states understanding. At this time, pt will be having a family meeting w/Dr. Hein on Friday. Pt has list of nursing homes if needed, however pt states he would still prefer to go home if possible. Pt does not have any choices picked in regard to rehab. However, pt's oxygen needs are still 10-12lpm and pt states he is still getting short of breath when he gets up. SW explained will continue to follow for discharge needs and is available for any questions. Pt and daughter state understanding. SW will continue to follow. CLARKE Barksdale, SCHOOL VOCATIONAL EDUCATOR
[2018-08-31] MEDS: Ipratropium Bromide 0.06% NASAL SPRAY 2 SPRAY NASAL ×2 (10:44→22:03)
[2018-08-31] MEDS: guaiFENesin 1,200 MG Tablet 1200 MG PO ×2 (10:45→22:02)
[2018-08-31] MEDS: Metoprolol Tartrate 25 MG Tablet PO ×2 (10:45→22:02)
[2018-08-31] MEDS: amLODIPine 10 MG Tablet PO (10:45)
[2018-08-31] MEDS: Pantoprazole Sodium 20 MG Tablet PO (10:46)
[2018-08-31] MEDS: Furosemide 40 MG/4 ML Vial IV ×2 (10:48→18:18)
[2018-08-31] MEDS: 0.9% NaCl Peripheral Flush Adult/Peds IV ×4 (10:48→23:08)
[2018-08-31 10:56] LABS: Pathologist Review Reviewed
[2018-08-31 11:02] LABS: Lymphocyte 4 % (19-41); Monocyte 5 % (0-10); Myelocyte 2 (0-0); Neutrophil-Segmented 89 % (47-70); Platelet Estimate ADEQUATE (ADEQ); Red Cell Morphology NORM C+C NORMAL (NORM C&C); Total Cells Counted 100 (MANUAL DIFF)
[2018-08-31 11:03] LABS: Absolute Neutrophil Count 27.1 X10^3/uL (2.0-7.7)
[2018-08-31 11:04] LABS: Absolute Lymphocyte Count 1.22 X10^3/ul (0.83-4.51); Lymphocyte # 1.22 X10^3/ul (4.0)
--- NOTE | 2018-08-31 14:33 | PCM.PN.HOSP ---
Patient Problems: Active and Suspected Problems (Last Reviewed 08/24/18 @ 03:05 by Andrés Mane MD) Community acquired pneumonia (Acute) Hypoxemia (Acute) Subjective: Patient was seen and examined with his family by his bedside. He had no active complaints but did state that every time he moved, he got short of breath and oxygen requirements increased. He was titrated on 10 L during the night but states that he had to go up to 12 L as he became short of breath when he was walking up to check vitals at all. He denies any fever or chills, any cough or chest pain, abdominal pain, cough, palpitations, diarrhea vomiting. Review of systems otherwise negative. Labs and vitals reviewed. Family said he is scheduled to meet with Dr. Hein on Friday to discuss goals of care. Vitals/I&O's: Vital Signs Temp Pulse Resp BP Pulse Ox 97.6 F L 95 20 H 113/72 90 08/31/18 12:00 08/31/18 12:00 08/31/18 12:00 08/31/18 12:00 08/31/18 12:00 Oxygen Flow Rate (L/min) 11 Oxygen Delivery Method Nasal Cannula Weight: 193 lb 1.999 oz Body Mass Index (BMI) 28.9 Intake and Output for Last 24 Hours 08/29/18 08/30/18 08/31/18 23:59 23:59 23:59 Intake Total 3557.2 / 3557.2 1645 / 1645 1510 / 1510 Output Total 4955 / 4955 2555 / 2555 1130 / 1130 Balance -1397.8 / -1397.8 -910 / -910 380 / 380 General: Alert, Oriented x3, Cooperative, No apparent distress HEENT: Atraumatic, PERRLA, EOMI, Normocephalic Oral: Moist Mucosa Neck: Supple, No JVD, Negative Carotid Bruits Lungs: - - Mild expiratory crackles in lower lung bases bilaterally. On 12 L of oxygen at time of review. Cardiovascular: Regular rate, Regular Rhythm, Normal S1, Normal S2, No murmurs Abdomen: Bowel Sounds Present, Soft, Non Tender, Non-Distended, No Hepato-splenomegaly Extremities: No clubbing, No cyanosis, No edema, Capillary Refill Less than 3 Seconds Skin: No rashes, No breakdown Musculoskeletal: No Tenderness to Palpation of Joints or Extremities Lymphatic: No Cervical, Supraclavicular, or Inguinal Adenopathy Neurological: Cranial nerves II-XII grossly intact Psych/Mental Status: Normal Affect, Appropriate, Alert and oriented to time, place, person, mood and affect Microbiology Past 72 Hours 08/26/18 10:55 Sputum, Expectorated/Coughed Gram Stain - Final 08/26/18 10:55 Sputum, Expectorated/Coughed Respiratory Culture - Final Presumptive C albicans 08/24/18 01:16 Blood Culture (Wb) - Anticubital Left Blood Culture - Final No growth in 5 days. 08/24/18 01:30 Blood Culture (Wb) - Anticubital Right Blood Culture - Final No growth in 5 days. Laboratory Results 08/29/18 06:07: Diff Path Review Reviewed 08/30/18 14:41: POC Glucose 228 H 08/31/18 04:10: Sodium 139, Potassium 4.0, Chloride 97 L, Carbon Dioxide 31.0, Anion Gap 11, BUN 26 H, Creatinine 0.92, Estim Creat Clear Calc 69.38, Est GFR (MDRD) Af Amer 103, Est GFR (MDRD) Non-Af 85, BUN/Creatinine Ratio 28.3 H, Glucose 168 H, Calcium 8.1 L, Magnesium 2.4 08/31/18 04:10: WBC 30.4 H*, RBC 4.78, Hgb 14.4, Hct 43.0, MCV 90.0, MCH 30.1, MCHC 33.5, RDW 13.2, RDW Differential 43.7, Plt Count 374, MPV 9.5, Neut % (Auto) Not Reportable, Absolute Neuts (auto) 27.1 H, Absolute Lymphs (auto) 1.22, Total Counted 100, Neutrophils % (Manual) 89 H, Lymphocytes % (Manual) 4 L, Monocytes % (Manual) 5, Myelocytes % 2 H, Diff Path Review May foll, Platelet Estimate ADEQUATE, RBC Morphology NORM C+C Diagnostic Data Chest CT 08/24/18 11:20 IMPRESSION: Changes compatible with a progressive pulmonary fibrosis with evidence of honeycombing and bronchiectasis. This is worse in the right hemithorax. Enlarged bilateral axillary lymph nodes. Electronically Signed: Joseph Sheriff MD at 12:53 EST Tel [phone], Service support , Chest X-Ray 08/30/18 07:38 IMPRESSION: Persistent bilateral peripheral mixed interstitial and air space opacities some of which maybe chronic. Acute disease unfortunately cannot be excluded. Electronically Signed: Carmencita Barron MD at 8:23 EST , Service support , Current Medications Acetaminophen (Tylenol) 650 mg PO Q4H PRN PRN PRN Reason: FEVER Last Admin: 08/24/18 16:16 Dose: 650 mg Albuterol Sulfate (Ventolin Aerosols) 2.5 mg INHALATION Q2H PRN PRN PRN Reason: SHORTNESS OF BREATH Last Admin: 08/24/18 04:02 Dose: 2.5 mg Albuterol/Ipratropium (Duoneb) 3 ml INHALATION Q4H.RT [facility] Last Admin: 08/31/18 11:50 Dose: 3 ml Amlodipine Besylate (Norvasc) 10 mg PO DAILY [facility] Last Admin: 08/31/18 10:45 Dose: 10 mg Aspirin (Ecotrin) 81 mg PO DAILY@0800 [facility] Last Admin: 08/31/18 07:56 Dose: 81 mg Benzonatate (Tessalon Perle) 200 mg PO TID PRN PRN PRN Reason: COUGH Chlorhexidine Gluconate () 1 each TOPICAL DAILY [facility] Last Admin: 08/30/18 10:00 Dose: 1 each Cholecalciferol (Vitamin D) 5,000 unit PO DAILY [facility] Last Admin: 08/31/18 07:58 Dose: 5,000 unit Furosemide (Lasix) 40 mg IV BID@1000,1800 [facility] Last Admin: 08/31/18 10:48 Dose: 40 mg Guaifenesin (Mucinex) 1,200 mg PO BID [facility] Last Admin: 08/31/18 10:45 Dose: 1,200 mg Hydroxyzine Pamoate (Vistaril Pamoate Capsule) 25 mg PO QHS PRN PRN Reason: SLEEP Last Admin: 08/28/18 21:45 Dose: 25 mg Sodium Chloride () 250 mls @ 15 mls/hr IV .[id number] PRN PRN Reason: SALINE FLUSH Last Admin: 08/25/18 11:39 Dose: 15 mls/hr Ipratropium [place] (Atrovent Nasal [place] (G)) 2 spray NASAL BID [facility] Last Admin: 08/31/18 10:44 Dose: 2 spray Lactobacillus Acidophilus (Acidophilus) 1 tablet PO DAILY [facility] Last Admin: 08/31/18 07:57 Dose: 1 tablet Lorazepam (Ativan) 0.5 mg IV Q6H PRN PRN PRN Reason: ANXIETY Magnesium Hydroxide (Milk Of Magnesia) 30 ml PO DAILY PRN PRN Reason: Constipation Methylprednisolone (Solu-Medrol) 40 mg IV Q6 [facility] Last Admin: 08/31/18 12:11 Dose: 40 mg Metoprolol Tartrate (Lopressor (Beta Haris)) 25 mg PO BID [facility] Last Admin: 08/31/18 10:45 Dose: 25 mg [facility]it[facility]) [facility] Last Admin: 08/31/18 07:56 Dose: 1 tablet Ondansetron HCl (Zofran) 4 mg IV Q8H PRN PRN PRN Reason: NAUSEA Pantoprazole Sodium (Protonix) 20 mg PO DAILY [facility] Last Admin: 08/31/18 10:46 Dose: 20 mg Rivaroxaban ([facility]) [facility] Last Admin: 08/31/18 07:57 Dose: 15 mg Senna/Docusate Sodium (Senokot-S, Aimee-Colace) 1 tablet PO BID [facility] Last Admin: 08/31/18 07:57 Dose: 1 tablet Sodium Chloride () 5 - 30 ml IV UD PRN PRN Reason: SALINE FLUSH Last Admin: 08/31/18 12:12 Dose: 10 ml Sodium Chloride ([place] Nasal [place]) 2 spray NASAL TID PRN PRN PRN Reason: NASAL DRYNESS Last Admin: 08/31/18 07:59 Dose: 2 sprays Medical Necessity - Tobacco Use Smoking Status: Former smoker Assessment/Plan All Active Problems (Last Reviewed 08/24/18 @ 03:05 by Andrés Mane MD) Community acquired pneumonia (Acute) Hypoxemia (Acute) History of bilateral cataract extraction (Resolved) Status post trigger finger release (Resolved) History of cholecystectomy (Resolved) History of bilateral carpal tunnel release (Resolved) History of prostatectomy (Resolved) History of coronary artery bypass graft x 3 (Resolved) History of colonoscopy (Resolved) 1. Acute on chronic hypoxic respiratory failure Etiology is multifactorial with probable interstitial lung disease(IPF), bronchiectasis and presumed PE Patient remains on 12 L of oxygen. Remains on steroids, bronchodilators and IV Lasix. Patient states goal is being to get him down to 8 L but this has proved difficult as as soon as he moves, he gets short of breath and oxygen requirement up to be increased. Per pulmonology, he may be a candidate for pirfenidone. Imaging shows significant fibrosis in the lungs. Only to meet with test carrier on Friday to discuss goals of therapy. Continue IV steroids, IV Lasix and bronchial dilators. Pulmonology on board. BIPAP prn 2. Bilateral LE DVT and presumed PE Currently on Xarelto 50 mg twice daily which was started on 08/29/2028. He is to have a total of 21 days of his dose of Xarelto and then to be transitioned to 20 mg once daily to treat DVT and presumed PE couldnt have CTPE because of contrast allergy 3. HFpEF and pulmonary hypertension On IV Lasix 40 mg twice daily. 4. CAD s/p CABG: Stable. 5.MGUS: Recently diagnosed. Sees Dr Sol on outpatient basis. 5. Rheumatoid arthritis: To follow-up with Dr. Cunningham on discharge. 6. Hyperglycemia due to steroids; ISS. 7. Hemorrhoids: stable. Mild bleeding has resolved. 8. Leukocytosis: White cell count is 30.4. Likely due to steroids. Will monitor 9. Hypertension: on amlodipine and metoprolol Code Visit Inpatient E&M: 94804 [facility] Hosp L3
--- NOTE | 2018-08-31 14:48 | PN_ITS ---
Patient Problems: Active and Suspected Problems (Last Reviewed 08/24/18 @ 03:05 by Andrés Mane MD) Community acquired pneumonia (Acute) Hypoxemia (Acute) Subjective: Patient was seen and examined with his family by his bedside. He had no active complaints but did state that every time he moved, he got short of breath and ox ygen requirements increased. He was titrated on 10 L during the night but states that he had to go up to 12 L as he became short of breath when he was walking up to check vitals at all. He denies any fever or chills, any cough or chest pain, abdominal pain, cough, palpitations, diarrhea vomiting. Review of systems otherwise negative. Labs and vitals reviewed. Family said he is scheduled to meet with Dr. Hein on Friday to discuss goals of care. Vitals/I&O's: Vital Signs Temp Pulse Resp BP Pulse Ox 97.6 F L 95 20 H 113/72 90 08/31/18 12:00 08/31/18 12:00 08/31/18 12:00 08/31/18 12:00 08/31/18 12:00 Oxygen Flow Rate (L/min) 11 Oxygen Delivery Method Nasal Cannula Weight: 193 lb 1.999 oz Body Mass Index (BMI) 28.9 Intake and Output for Last 24 Hours 08/29/18 08/30/18 08/31/18 23:59 23:59 23:59 Intake Total 3557.2 / 3557.2 1645 / 1645 1510 / 1510 Output Total 4955 / 4955 2555 / 2555 1130 / 1130 Balance -1397.8 / -1397.8 -910 / -910 380 / 380 General: Alert, Oriented x3, Cooperative, No apparent distress HEENT: Atraumatic, PERRLA, EOMI, Normocephalic Oral: Moist Mucosa Neck: Supple, No JVD, Negative Carotid Bruits Lungs: - - Mild expiratory crackles in lower lung bases bilaterally. On 12 L of oxygen at time of review. Cardiovascular: Regular rate, Regular Rhythm, Normal S1, Normal S2, No murmurs Abdomen: Bowel Sounds Present, Soft, Non Tender, Non-Distended, No Hepato- splenomegaly Extremities: No clubbing, No cyanosis, No edema, Capillary Refill Less than 3 Seconds Skin: No rashes, No breakdown Musculoskeletal: No Tenderness to Palpation of Joints or Extremities Lymphatic: No Cervical, Supraclavicular, or Inguinal Adenopathy Neurological: Cranial nerves II-XII grossly intact Psych/Mental Status: Normal Affect, Appropriate, Alert and oriented to time, place, person, mood and affect Microbiology Past 72 Hours 08/26/18 10:55 Sputum, Expectorated/Coughed Gram Stain - Final 08/26/18 10:55 Sputum, Expectorated/Coughed Respiratory Culture - Final Presumptive C albicans 08/24/18 01:16 Blood Culture (Wb) - Anticubital Left Blood Culture - Final No growth in 5 days. 08/24/18 01:30 Blood Culture (Wb) - Anticubital Right Blood Culture - Final No growth in 5 days. Laboratory Results 08/29/18 06:07: Diff Path Review Reviewed 08/30/18 14:41: POC Glucose 228 H 08/31/18 04:10: Sodium 139, Potassium 4.0, Chloride 97 L, Carbon Dioxide 31.0, Anion Gap 11, BUN 26 H, Creatinine 0.92, Estim Creat Clear Calc 69.38, Est GFR (MDRD) Af Amer 103, Est GFR (MDRD) Non-Af 85, BUN/Creatinine Ratio 28.3 H, G lucose 168 H, Calcium 8.1 L, Magnesium 2.4 08/31/18 04:10: WBC 30.4 H*, RBC 4.78, Hgb 14.4, Hct 43.0, MCV 90.0, MCH 30.1, MCHC 33.5, RDW 13.2, RDW Differential 43.7, Plt Count 374, MPV 9.5, Neut % (Auto) Not Reportable, Absolute Neuts (auto) 27.1 H, Absolute Lymphs (auto) 1.22, Total Counted 100, Neutrophils % (Manual) 89 H, Lymphocytes % (Manual) 4 L , Monocytes % (Manual) 5, Myelocytes % 2 H, Diff Path Review May foll, Platelet Estimate ADEQUATE, RBC Morphology NORM C+C Diagnostic Data Chest CT 08/24/18 11:20 IMPRESSION: Changes compatible with a progressive pulmonary fibrosis with evidence of honeycombing and bronchiectasis. This is worse in the right hemithorax. Enlarged bilateral axillary lymph nodes. Electronically Signed: Joseph Sheriff MD at 12:53 EST Tel [phone], Service support , Chest X-Ray 08/30/18 07:38 IMPRESSION: Persistent bilateral peripheral mixed interstitial and air space opacities some of which maybe chronic. Acute disease unfortunately cannot be excluded. Electronically Signed: Carmencita Barron MD at 8:23 EST , Service support , Current Medications Acetaminophen (Tylenol) 650 mg PO Q4H PRN PRN PRN Reason: FEVER Last Admin: 08/24/18 16:16 Dose: 650 mg Albuterol Sulfate (Ventolin Aerosols) 2.5 mg INHALATION Q2H PRN PRN PRN Reason: SHORTNESS OF BREATH Last Admin: 08/24/18 04:02 Dose: 2.5 mg Albuterol/Ipratropium (Duoneb) 3 ml INHALATION Q4H.RT [facility] Last Admin: 08/31/18 11:50 Dose: 3 ml Amlodipine Besylate (Norvasc) 10 mg PO DAILY [facility] Last Admin: 08/31/18 10:45 Dose: 10 mg Aspirin (Ecotrin) 81 mg PO DAILY@0800 [facility] Last Admin: 08/31/18 07:56 Dose: 81 mg Benzonatate (Tessalon Perle) 200 mg PO TID PRN PRN PRN Reason: COUGH Chlorhexidine Gluconate () 1 each TOPICAL DAILY [facility] Last Admin: 08/30/18 10:00 Dose: 1 each Cholecalciferol (Vitamin D) 5,000 unit PO DAILY [facility] Last Admin: 08/31/18 07:58 Dose: 5,000 unit Furosemide (Lasix) 40 mg IV BID@1000,1800 [facility] Last Admin: 08/31/18 10:48 Dose: 40 mg Guaifenesin (Mucinex) 1,200 mg PO BID [facility] Last Admin: 08/31/18 10:45 Dose: 1,200 mg Hydroxyzine Pamoate (Vistaril Pamoate Capsule) 25 mg PO QHS PRN PRN Reason: SLEEP Last Admin: 08/28/18 21:45 Dose: 25 mg Sodium Chloride () 250 mls @ 15 mls/hr IV .[id number] PRN PRN Reason: SALINE FLUSH Last Admin: 08/25/18 11:39 Dose: 15 mls/hr Ipratropium [place] (Atrovent Nasal [place] (G)) 2 spray NASAL BID [facility] Last Admin: 08/31/18 10:44 Dose: 2 spray Lactobacillus Acidophilus (Acidophilus) 1 tablet PO DAILY [facility] Last Admin: 08/31/18 07:57 Dose: 1 tablet Lorazepam (Ativan) 0.5 mg IV Q6H PRN PRN PRN Reason: ANXIETY Magnesium Hydroxide (Milk Of Magnesia) 30 ml PO DAILY PRN PRN Reason: Constipation Methylprednisolone (Solu-Medrol) 40 mg IV Q6 [facility] Last Admin: 08/31/18 12:11 Dose: 40 mg Metoprolol Tartrate (Lopressor (Beta Haris)) 25 mg PO BID [facility] Last Admin: 08/31/18 10:45 Dose: 25 mg [facility]it[facility] ([facility]amin) [facility] Last Admin: 08/31/18 07:56 Dose: 1 tablet Ondansetron HCl (Zofran) 4 mg IV Q8H PRN PRN PRN Reason: NAUSEA Pantoprazole Sodium (Protonix) 20 mg PO DAILY [facility] Last Admin: 08/31/18 10:46 Dose: 20 mg Rivaroxaban (Xarelto) [facility] Last Admin: 08/31/18 07:57 Dose: 15 mg Senna/Docusate Sodium (Senokot-S, Aimee-Colace) 1 tablet PO BID [facility] Last Admin: 08/31/18 07:57 Dose: 1 tablet Sodium Chloride () 5 - 30 ml IV UD PRN PRN Reason: SALINE FLUSH Last Admin: 08/31/18 12:12 Dose: 10 ml Sodium Chloride ([place] Nasal [place]) 2 spray NASAL TID PRN PRN PRN Reason: NASAL DRYNESS Last Admin: 08/31/18 07:59 Dose: 2 sprays Medical Necessity - Tobacco Use Smoking Status: Former smoker Assessment/Plan All Active Problems (Last Reviewed 08/24/18 @ 03:05 by Andrés Mane MD) Community acquired pneumonia (Acute) Hypoxemia (Acute) History of bilateral cataract extraction (Resolved) Status post trigger finger release (Resolved) History of cholecystectomy (Resolved) History of bilateral carpal tunnel release (Resolved) History of prostatectomy (Resolved) History of coronary artery bypass graft x 3 (Resolved) History of colonoscopy (Resolved) 1. Acute on chronic hypoxic respiratory failure * Etiology is multifactorial with probable interstitial lung disease(IPF), bronchiectasis and presumed PE * Patient remains on 12 L of oxygen. * Remains on steroids, bronchodilators and IV Lasix. * Patient states goal is being to get him down to 8 L but this has proved difficult as as soon as he moves, he gets short of breath and oxygen requirement up to be increased. * Per pulmonology, he may be a candidate for pirfenidone. Imaging shows significant fibrosis in the lungs. * Only to meet with stock counter on Friday to discuss goals of therapy. * Continue IV steroids, IV Lasix and bronchial dilators. * Pulmonology on board. * BIPAP prn * 2. Bilateral LE DVT and presumed PE * Currently on Xarelto 50 mg twice daily which was started on 08/29/2028. He is to have a total of 21 days of his dose of Xarelto and then to be transitioned to 20 mg once daily to treat DVT and presumed PE * couldnt have CTPE because of contrast allergy * * 3. HFpEF and pulmonary hypertension * On IV Lasix 40 mg twice daily. * 4. CAD s/p CABG: Stable. 5.MGUS: Recently diagnosed. Sees Dr Sol on outpatient basis. 5. Rheumatoid arthritis: To follow-up with Dr. Cunningham on discharge. 6. Hyperglycemia due to steroids; ISS. 7. Hemorrhoids: stable. Mild bleeding has resolved. 8. Leukocytosis: White cell count is 30.4. Likely due to steroids. Will monitor 9. Hypertension: on amlodipine and metoprolol Code Visit Inpatient E&M: 90846 Subs Hosp L3
[2018-08-31] MEDS: CHLORHEXIDINE GLUC 2% CLOTH 1 EACH TOWELETTE TOPICAL (16:47)
--- NOTE | 2018-08-31 18:56 | CPS ---
Patient working on PEP therapy on own.
[2018-09-01] VITALS (36 sets, daily range): BP systolic 105–135; BP diastolic 65–85; PULSE 63–95; RESP 13–23; TEMP 35.9–36.4; O2SAT 85–96
[2018-09-01] MEDS: Ipratropium/Albuterol Sulfate 3 ML AMPUL.NEB INHALATION ×6 (02:35→23:08)
[2018-09-01] MEDS: 0.9% NaCl Peripheral Flush Adult/Peds IV ×2 (05:04→10:38)
[2018-09-01 06:07] LABS: Anion Gap 11 (5-15); BUN 27 mg/dL (7-18); Chloride 97 mmol/L (98-107); Creatinine, Serum 0.84 mg/dL (0.70-1.30); EST Glomerular Filtration Rate 94 mL/min (>60); Est Glom Filt Rate - Afr Amer 114 mL/min (>60); Estimated Creatinine Clearance 75.98 ml/min; Glucose 152 mg/dL (74-106); Potassium 3.9 mmol/L (3.5-5.1); Sodium Level 138 mmol/L (136-145)
[2018-09-01 06:09] LABS: Hematocrit 42.8 % (40-54); Hemoglobin 14.4 g/dl (13.0-16.5); Mean Corp Hgb Conc 33.6 g/gl (32-36); Mean Corpuscular Hgb 30.3 pg (27.0-32.0); Mean Corpuscular Volume 90.1 fL (80-94); Mean Platelet Vol. 9.9 fl (6.2-12.0); Platelet Count 375 K/mm3 (150-450); RBC Distribution Width CV 13.5 % (11.6-14.6); RBC Distribution Width SD 43.6 fl (35.1-43.9); Red Blood Count 4.75 M/mm3 (4.6-6.2)
[2018-09-01 06:13] LABS: White Blood Count 31.9 K/mm3 (4.4-11.0)
[2018-09-01 06:14] LABS: Differential Indicated MANUAL DIFF; POSITIVE COUNT YES; POSITIVE DIFFERENTIAL YES; POSITIVE MORPHOLOGY YES
--- NOTE | 2018-09-01 07:02 | PCM.PN.INT ---
Subjective: Patient did well overnight. No acute issues were reported. Patient denies any fevers or chills. No diarrhea has been reported. Patient has been able to be weaned to 8 L nasal cannula. Patient feels subjectively unchanged compared to previous. General: Alert, Oriented x3, Cooperative, No apparent distress, - - Conversational dyspnea continues to improve HEENT: Atraumatic, PERRLA, EOMI, Normocephalic, - - No scleral icterus or injection noted. Some sinus congestion appreciated. Oral: Moist Mucosa, No Gingival or Mucosal Lesions/ Ulcerations Neck: Supple, No JVD, No Nodes, Trachea Midline Lungs: No rhonchi, No wheeze, Diminished, Rales, - - Symmetric expansion. No dullness to percussion. Cardiovascular: Regular rate, Regular Rhythm, Normal S1, Normal S2, No murmurs, No rub noted, No Gallop Abdomen: Bowel Sounds Present, Soft, Non Tender, Non-Distended Extremities: No cyanosis, No edema, Capillary Refill Less than 3 Seconds, Clubbing Skin: No rashes, No breakdown Musculoskeletal: No Tenderness to Palpation of Joints or Extremities Lymphatic: No Cervical, Supraclavicular, or Inguinal Adenopathy Neurological: Cranial nerves II-XII grossly intact, Neuro grossly intact, Motor Exam 5/5 strength throughout Psych/Mental Status: Alert and oriented to time, place, person, mood and affect Vital Signs Temp Pulse Resp BP Pulse Ox 36.3 C L 63 14 115/68 92 09/01/18 05:00 09/01/18 06:00 09/01/18 06:00 09/01/18 06:00 09/01/18 06:00 Oxygen Flow Rate (L/min) 8 Oxygen Delivery Method Nasal Cannula Weight: 87.8 kg Body Mass Index (BMI) 28.9 Intake and Output for Last 24 Hours 08/30/18 08/31/18 09/01/18 23:59 23:59 23:59 Intake Total 1645 / 1645 2880 / 2880 360 / 360 Output Total 2555 / 2555 2655 / 2655 450 / 450 Balance -910 / -910 225 / 225 -90 / -90 Labs (Last 48 Hours) 08/29/18 08/30/18 08/30/18 06:07 06:57 06:57 WBC RBC Hgb Hct MCV MCH MCHC RDW RDW Differential Plt Count MPV Neut % (Auto) Absolute Neuts (auto) Absolute Lymphs (auto) Total Counted Neutrophils % (Manual) Lymphocytes % (Manual) Monocytes % (Manual) Myelocytes % Diff Path Review Reviewed Platelet Estimate RBC Morphology Sodium 135 L Potassium 3.8 Chloride 97 L Carbon Dioxide 30.0 Anion Gap 8 BUN 22 H Creatinine 0.82 Estim Creat Clear Calc 77.84 Est GFR (MDRD) Af Amer 117 Est GFR (MDRD) Non-Af 97 BUN/Creatinine Ratio 26.7 H Glucose 148 H Calcium 8.2 L Magnesium 2.2 POC Glucose 08/30/18 08/30/18 08/31/18 12:36 14:41 04:10 WBC RBC Hgb Hct MCV MCH MCHC RDW RDW Differential Plt Count MPV Neut % (Auto) Absolute Neuts (auto) Absolute Lymphs (auto) Total Counted Neutrophils % (Manual) Lymphocytes % (Manual) Monocytes % (Manual) Myelocytes % Diff Path Review Platelet Estimate RBC Morphology Sodium 139 Potassium 4.0 Chloride 97 L Carbon Dioxide 31.0 Anion Gap 11 BUN 26 H Creatinine 0.92 Estim Creat Clear Calc 69.38 Est GFR (MDRD) Af Amer 103 Est GFR (MDRD) Non-Af 85 BUN/Creatinine Ratio 28.3 H Glucose 168 H Calcium 8.1 L Magnesium 2.4 POC Glucose 231 H 228 H 08/31/18 09/01/18 09/01/18 04:10 05:05 05:05 WBC 30.4 H* 31.9 H* RBC 4.78 4.75 Hgb 14.4 14.4 Hct 43.0 42.8 MCV 90.0 90.1 MCH 30.1 30.3 MCHC 33.5 33.6 RDW 13.2 13.5 RDW Differential 43.7 43.6 Plt Count 374 375 MPV 9.5 9.9 Neut % (Auto) Not Reportable Not Reportable Absolute Neuts (auto) 27.1 H Not Reportable Absolute Lymphs (auto) 1.22 Total Counted 100 Pending Neutrophils % (Manual) 89 H Lymphocytes % (Manual) 4 L Monocytes % (Manual) 5 Myelocytes % 2 H Diff Path Review May foll Platelet Estimate ADEQUATE RBC Morphology NORM C+C Sodium 138 Potassium 3.9 Chloride 97 L Carbon Dioxide 30.0 Anion Gap 11 BUN 27 H Creatinine 0.84 Estim Creat Clear Calc 75.98 Est GFR (MDRD) Af Amer 114 Est GFR (MDRD) Non-Af 94 BUN/Creatinine Ratio 32.0 H Glucose 152 H Calcium 8.0 L Magnesium POC Glucose Medical Necessity - Tobacco Use Smoking Status: Former smoker Assessment/Plan All Active Problems (Last Reviewed 08/24/18 @ 03:05 by Andrés Mane MD) Community acquired pneumonia (Acute) Hypoxemia (Acute) History of bilateral cataract extraction (Resolved) Status post trigger finger release (Resolved) History of cholecystectomy (Resolved) History of bilateral carpal tunnel release (Resolved) History of prostatectomy (Resolved) History of coronary artery bypass graft x 3 (Resolved) History of colonoscopy (Resolved) RECOMMENDATIONS: 1. Continue antibiotics as ordered to complete treatment course. 2. Continue scheduled bronchodilators, transition to p.o. steroids and scheduled Lasix 3. Continue Xarelto therapy 4. Wean supplemental oxygen as tolerated. Goal oxygen saturation at or above 88%. 5. Encourage aggressive incentive spirometer use and mobilize patient as elevated. 6. Likely okay to leave the intensive care unit from my perspective IMPRESSIONS: 1. Acute hypoxic respiratory failure/underlying mixed ventilatory defect with exacerbation/bronchiectasis/presumed PE Patient currently on steroids, bronchodilators and scheduled Lasix therapy. Patient is reporting some improvement following diuretic therapy. Patient also was found to have positive lower extremity Dopplers. Presumption for PE complicating current situation. Patient is on systemic anticoagulation. Patient has had rapid progression and fibrotic changes since I last saw him. Patient is requiring significant FiO2 to maintain saturations. Patient may be a candidate for pirfenidone as an outpatient. Anticipate family meeting on Friday to discuss goals of therapy. Transition patient to p.o. steroids. Continue diuretic therapy as tolerated. 2. Heart failure with preserved ejection fraction/pulmonary hypertension The patient's pulmonary hypertension is most likely the consequence of his underlying pulmonary process coupled with hypoxia. Continue current supportive measures as noted above. The patient will be continued on Lasix 40 mg twice daily. Goal -1-2 L of fluid balance daily. 3. Lower extremity DVTs Lower extremity Dopplers to show DVTs. Patient appears to be tolerating Xarelto therapy well. Oxygenation is improving slightly. 4. Recently diagnosed rheumatoid arthritis and MGUS Patient was found to be positive rheumatoid factor and anti-CCP antibody. However, patient was also noted to have MGUS, so this is delayed any initiation of therapy. Patient has been consulted with the [facility] and Dr. Silva did discuss potential treatment options. Possible Imuran initiation if cleared by hematology. Patient is currently scheduled for a follow-up visit on October 12. Prior history of tobacco abuse/hypertension/GERD Complicates care, management, recovery and prognosis. Continue home medications as indicated. Code Visit Inpatient E&M: 25803 Subs Hosp L3
[2018-09-01] MEDS: Multivitamins,Therapeutic Tablet 1 TABLET PO (08:49)
[2018-09-01] MEDS: Aspirin E.C. 81 MG Tablet PO (08:49)
[2018-09-01] MEDS: predniSONE 20 MG Tablet 40 MG PO (08:49)
[2018-09-01] MEDS: Rivaroxaban 15 MG Tablet PO ×2 (08:49→16:06)
[2018-09-01 09:56] LABS: Lymphocyte 8 % (19-41); Monocyte 3 % (0-10); Myelocyte 1 (0-0); Neutrophil-Segmented 88 % (47-70); Platelet Estimate ADEQUATE (ADEQ); Red Cell Morphology NORM C+C NORMAL (NORM C&C); Total Cells Counted 100 (MANUAL DIFF)
[2018-09-01 09:57] LABS: Absolute Neutrophil Count 28.4 X10^3/uL (2.0-7.7)
[2018-09-01 09:58] LABS: Absolute Lymphocyte Count 2.55 X10^3/ul (0.83-4.51)
[2018-09-01] MEDS: amLODIPine 10 MG Tablet PO (10:37)
[2018-09-01] MEDS: guaiFENesin 1,200 MG Tablet 1200 MG PO ×2 (10:37→22:06)
[2018-09-01] MEDS: Pantoprazole Sodium 20 MG Tablet PO (10:37)
[2018-09-01] MEDS: Furosemide 40 MG/4 ML Vial IV ×2 (10:38→18:16)
[2018-09-01] MEDS: CHLORHEXIDINE GLUC 2% CLOTH 1 EACH TOWELETTE TOPICAL (10:38)
[2018-09-01] MEDS: Metoprolol Tartrate 25 MG Tablet PO ×2 (10:38→22:05)
--- NOTE | 2018-09-01 10:41 | CASEMGMT ---
Social Work: Attended ICU rounds. Patient will likely be moved to PCU today. Patient/family meeting with Dr. Hein planned for Friday. SW to follow to assist with D/C planning and emotional support. PLAN: SNF verses home with home health. CLARKE Duarte
[2018-09-01 12:03] LABS: Pathologist Review Reviewed
[2018-09-01 12:11] LABS: Pathologist Review Reviewed
--- NOTE | 2018-09-01 13:27 | CPS ---
Patient reported working on PEP therapy and Incentive Spirometry on own.
--- NOTE | 2018-09-01 13:27 | CPS ---
Patient on High Flow Nasal Cannula with humidity.
--- NOTE | 2018-09-01 18:45 | PCM.PROGNOTE ---
Patient Problems: Active and Suspected Problems (Last Reviewed 08/24/18 @ 03:05 by Andrés Mane MD) Community acquired pneumonia (Acute) Hypoxemia (Acute) Subjective: Patient seen and examined today, I discussed his care with pulmonary medicine, pulmonary medicine feels that he is stable to move out to the floor today. Talked briefly with the patient and his family who are in the room. - Physical Exam General: Alert, Oriented x3, Cooperative, No apparent distress, Well developed, Well nourished HEENT: Atraumatic, PERRLA, EOMI, Normocephalic Oral: Moist Mucosa Neck: Supple, No JVD, Negative Carotid Bruits Lungs: Diminished, Rales - Fine rales are noted at the bases bilaterally on inspiration Cardiovascular: Regular rate, Regular Rhythm, Normal S1, Normal S2, No murmurs Abdomen: Bowel Sounds Present, Soft, Non Tender, Non-Distended Extremities: No edema, Capillary Refill Less than 3 Seconds Skin: No rashes, No breakdown Musculoskeletal: No Tenderness to Palpation of Joints or Extremities Neurological: Cranial nerves II-XII grossly intact, Neuro grossly intact, Sensory exam intact to light touch and pain, Coordination normal Psych/Mental Status: Normal Affect, Appropriate, Alert and oriented to time, place, person, mood and affect Vital Signs Temp Pulse Resp BP Pulse Ox 96.9 F L 85 19 H 119/71 92 09/01/18 18:00 09/01/18 18:41 09/01/18 18:41 09/01/18 18:00 09/01/18 18:00 Oxygen Flow Rate (L/min) 7 Oxygen Delivery Method Nasal Cannula Weight: 87.8 kg Body Mass Index (BMI) 28.9 Intake and Output for Last 24 Hours 08/30/18 08/31/18 09/01/18 23:59 23:59 23:59 Intake Total 1645 / 1645 2880 / 2880 860 / 860 Output Total 2555 / 2555 2655 / 2655 950 / 950 Balance -910 / -910 225 / 225 -90 / -90 Laboratory Tests Past 24 Hrs 08/31/18 09/01/18 09/01/18 04:10 05:05 05:05 WBC 31.9 H* RBC 4.75 Hgb 14.4 Hct 42.8 MCV 90.1 MCH 30.3 MCHC 33.6 RDW 13.5 RDW Differential 43.6 Plt Count 375 MPV 9.9 Neut % (Auto) Not Reportable Absolute Neuts (auto) 28.4 H Absolute Lymphs (auto) 2.55 Total Counted 100 Neutrophils % (Manual) 88 H Lymphocytes % (Manual) 8 L Monocytes % (Manual) 3 Myelocytes % 1 H Diff Path Review Reviewed Reviewed Platelet Estimate ADEQUATE RBC Morphology NORM C+C Sodium 138 Potassium 3.9 Chloride 97 L Carbon Dioxide 30.0 Anion Gap 11 BUN 27 H Creatinine 0.84 Estim Creat Clear Calc 75.98 Est GFR (MDRD) Af Amer 114 Est GFR (MDRD) Non-Af 94 BUN/Creatinine Ratio 32.0 H Glucose 152 H Calcium 8.0 L Medical Necessity - Tobacco Use Smoking Status: Former smoker Assessment/Plan All Active Problems (Last Reviewed 08/24/18 @ 03:05 by Andrés Mane MD) Community acquired pneumonia (Acute) Hypoxemia (Acute) History of bilateral cataract extraction (Resolved) Status post trigger finger release (Resolved) History of cholecystectomy (Resolved) History of bilateral carpal tunnel release (Resolved) History of prostatectomy (Resolved) History of coronary artery bypass graft x 3 (Resolved) History of colonoscopy (Resolved) #1 acute hypoxic respiratory failure secondary to bronchiectasis, presumed COPD, and presumed PE as well as diastolic congestive heart failure-patient will be moved to PCU, PT and OT will continue to see the patient as will pulmonary medicine #2 lower extremity DVTs-patient is on Xarelto #3 pulmonary hypertension #4 hypertension #5 GERD #6 monoclonal gammopathy of undetermined significance #7 coronary artery disease #8 pulmonary fibrosis #9 community-acquired pneumonia-probably gram-positive bacterial Code Visit Inpatient E&M: 17720 Subs Hosp L2
[2018-09-01] MEDS: Sodium Chloride 0.65% 1 SPRAY SPRAY.BTL 2 SPRAY NASAL (22:00)
[2018-09-01] MEDS: Ipratropium Bromide 0.06% NASAL SPRAY 2 SPRAY NASAL (22:06)
[2018-09-01] MEDS: Senna/Docusate Sodium 1 Tablet PO (22:06)
[2018-09-02] VITALS (28 sets, daily range): BP systolic 100–119; BP diastolic 60–77; PULSE 62–90; RESP 14–22; TEMP 36.1–36.9; O2SAT 88–95
[2018-09-02] MEDS: Ipratropium/Albuterol Sulfate 3 ML AMPUL.NEB INHALATION ×6 (03:53→22:16)
[2018-09-02] MEDS: Sodium Chloride 0.65% 1 SPRAY SPRAY.BTL 2 SPRAY NASAL (06:08)
[2018-09-02 06:57] LABS: Hematocrit 43.1 % (40-54); Hemoglobin 14.4 g/dl (13.0-16.5); Mean Corp Hgb Conc 33.4 g/gl (32-36); Mean Corpuscular Hgb 29.9 pg (27.0-32.0); Mean Corpuscular Volume 89.6 fL (80-94); Mean Platelet Vol. 9.8 fl (6.2-12.0); Platelet Count 317 K/mm3 (150-450); RBC Distribution Width CV 13.4 % (11.6-14.6); RBC Distribution Width SD 43.8 fl (35.1-43.9); Red Blood Count 4.81 M/mm3 (4.6-6.2); White Blood Count 28.8 K/mm3 (4.4-11.0)
[2018-09-02 06:59] LABS: Differential Indicated MANUAL DIFF; POSITIVE COUNT YES; POSITIVE DIFFERENTIAL YES; POSITIVE MORPHOLOGY YES
[2018-09-02 07:11] LABS: Eosinophil 1 % (0-5); Lymphocyte 13 % (19-41); Monocyte 11 % (0-10); Neutrophil-Band 3 % (0-5); Neutrophil-Segmented 72 % (47-70); Total Cells Counted 100 (MANUAL DIFF)
[2018-09-02] MEDS: Multivitamins,Therapeutic Tablet 1 TABLET PO (08:10)
[2018-09-02] MEDS: Aspirin E.C. 81 MG Tablet PO (08:10)
[2018-09-02] MEDS: predniSONE 20 MG Tablet 40 MG PO (08:12)
[2018-09-02] MEDS: Rivaroxaban 15 MG Tablet PO ×2 (08:13→16:50)
[2018-09-02] MEDS: Furosemide 40 MG/4 ML Vial IV ×2 (09:49→16:50)
[2018-09-02] MEDS: amLODIPine 10 MG Tablet PO (09:50)
[2018-09-02] MEDS: guaiFENesin 1,200 MG Tablet 1200 MG PO ×2 (09:50→21:21)
[2018-09-02] MEDS: Metoprolol Tartrate 25 MG Tablet PO ×2 (09:50→21:21)
[2018-09-02] MEDS: Pantoprazole Sodium 20 MG Tablet PO (09:50)
--- NOTE | 2018-09-02 09:51 | PCM.PN.HOSP ---
Patient Problems: Active and Suspected Problems (Last Reviewed 08/24/18 @ 03:05 by Andrés Mane MD) Community acquired pneumonia (Acute) Hypoxemia (Acute) Subjective: Patient seen and examined. He had no complaints and had a good night. Oxygen has been weaned on 7 L. He however did saturate well as reviewing him as he moves a little bit and saturation dropped down to the mid 80s. Oxygen increased to 8 L and saturations slowly went up to about 86%. Family to meet with pulmonology today to discuss goals of care. He denies any fever chills, cough or chest pain, abdominal pain, any diarrhea vomiting. Review of systems otherwise negative. Labs and vitals reviewed Vitals/I&O's: Vital Signs Temp Pulse Resp BP Pulse Ox 96.9 F L 90 15 105/67 91 09/02/18 08:19 09/02/18 08:19 09/02/18 08:19 09/02/18 08:19 09/02/18 08:19 Oxygen Flow Rate (L/min) 8 Oxygen Delivery Method Nasal Cannula Weight: 187 lb 6.287 oz Body Mass Index (BMI) 28.9 Intake and Output for Last 24 Hours 08/31/18 09/01/18 09/02/18 23:59 23:59 23:59 Intake Total 2880 / 2880 860 / 860 700 / 700 Output Total 2655 / 2655 1450 / 1450 700 / 700 Balance 225 / 225 -590 / -590 0 / 0 General: Alert, Oriented x3, Cooperative, No apparent distress HEENT: Atraumatic, PERRLA, EOMI, Normocephalic Oral: Moist Mucosa Neck: Supple, No JVD, Negative Carotid Bruits Lungs: - - has some coarse crackles in mid and lower lung gallego; no wheezing. on 8L of oxygen. Cardiovascular: Regular rate, Regular Rhythm, Normal S1, Normal S2, No murmurs Abdomen: Bowel Sounds Present, Soft, Non Tender, Non-Distended, No Hepato-splenomegaly Extremities: No clubbing, No cyanosis, No edema, Capillary Refill Less than 3 Seconds Skin: No rashes, No breakdown Musculoskeletal: No Tenderness to Palpation of Joints or Extremities Lymphatic: No Cervical, Supraclavicular, or Inguinal Adenopathy Neurological: Cranial nerves II-XII grossly intact, Neuro grossly intact, Motor Exam 5/5 strength throughout Psych/Mental Status: Normal Affect, Appropriate, Alert and oriented to time, place, person, mood and affect Laboratory Results 08/31/18 04:10: Diff Path Review Reviewed 09/01/18 05:05: Absolute Neuts (auto) 28.4 H, Absolute Lymphs (auto) 2.55, Total Counted 100, Neutrophils % (Manual) 88 H, Lymphocytes % (Manual) 8 L, Monocytes % (Manual) 3, Myelocytes % 1 H, Diff Path Review Reviewed, Platelet Estimate ADEQUATE, RBC Morphology NORM C+C 09/02/18 04:27: WBC 28.8 H, RBC 4.81, Hgb 14.4, Hct 43.1, MCV 89.6, MCH 29.9, MCHC 33.4, RDW 13.4, RDW Differential 43.8, Plt Count 317, MPV 9.8, Neut % (Auto) Not Reportable, Absolute Neuts (auto) Not Reportable, Total Counted 100, Neutrophils % (Manual) 72 H, Band Neutrophils % 3, Lymphocytes % (Manual) 13 L, Monocytes % (Manual) 11 H, Eosinophils % (Manual) 1, Diff Path Review May foll Diagnostic Data Chest CT 08/24/18 11:20 IMPRESSION: Changes compatible with a progressive pulmonary fibrosis with evidence of honeycombing and bronchiectasis. This is worse in the right hemithorax. Enlarged bilateral axillary lymph nodes. Electronically Signed: Joseph Sheriff MD at 12:53 EST Tel [phone], Service support , Chest X-Ray 08/30/18 07:38 IMPRESSION: Persistent bilateral peripheral mixed interstitial and air space opacities some of which maybe chronic. Acute disease unfortunately cannot be excluded. Electronically Signed: Carmencita Barron MD at 8:23 EST , Service support , Current Medications Acetaminophen (Tylenol) 650 mg PO Q4H PRN PRN PRN Reason: FEVER Last Admin: 08/24/18 16:16 Dose: 650 mg Albuterol Sulfate (Ventolin Aerosols) 2.5 mg INHALATION Q2H PRN PRN PRN Reason: SHORTNESS OF BREATH Last Admin: 08/24/18 04:02 Dose: 2.5 mg Albuterol/Ipratropium (Duoneb) 3 ml INHALATION Q4H.RT [facility] Last Admin: 09/02/18 06:57 Dose: 3 ml Amlodipine Besylate (Norvasc) 10 mg PO DAILY [facility] Last Admin: 09/01/18 10:37 Dose: 10 mg Aspirin (Ecotrin) 81 mg PO DAILY@0800 [facility] Last Admin: 09/02/18 08:10 Dose: 81 mg Benzonatate (Tessalon Perle) 200 mg PO TID PRN PRN PRN Reason: COUGH Chlorhexidine Gluconate () 1 each TOPICAL DAILY [facility] Last Admin: 09/01/18 10:38 Dose: 1 each Cholecalciferol (Vitamin D) 5,000 unit PO DAILY [facility] Last Admin: 09/01/18 10:38 Dose: 5,000 unit Furosemide (Lasix) 40 mg IV BID@1000,1800 [facility] Last Admin: 09/01/18 18:16 Dose: 40 mg Guaifenesin (Mucinex) 1,200 mg PO BID [facility] Last Admin: 09/01/18 22:06 Dose: 1,200 mg Hydroxyzine Pamoate (Vistaril Pamoate Capsule) 25 mg PO QHS PRN PRN Reason: SLEEP Last Admin: 08/28/18 21:45 Dose: 25 mg Sodium Chloride () 250 mls @ 15 mls/hr IV .[id number] PRN PRN Reason: SALINE FLUSH Last Admin: 08/25/18 11:39 Dose: 15 mls/hr Ipratropium [place] (Atrovent Nasal [place] (G)) 2 spray NASAL BID [facility] Last Admin: 09/01/18 22:06 Dose: 2 spray Lactobacillus Acidophilus (Acidophilus) 1 tablet PO DAILY [facility] Last Admin: 09/01/18 10:37 Dose: 1 tablet Metoprolol Tartrate (Lopressor (Beta Haris)) 25 mg PO BID [facility] Last Admin: 09/01/18 22:05 Dose: 25 mg Multivitamins ([facility]amin) [facility] Last Admin: 09/02/18 08:10 Dose: 1 tablet Ondansetron HCl (Zofran) 4 mg IV Q8H PRN PRN PRN Reason: NAUSEA Pantoprazole Sodium (Protonix) 20 mg PO DAILY [facility] Last Admin: 09/01/18 10:37 Dose: 20 mg Prednisone () 40 mg PO DAILY@0800 [facility] Last Admin: 09/02/18 08:12 Dose: 40 mg Rivaroxaban (Xarelto) [facility] Last Admin: 09/02/18 08:13 Dose: 15 mg Senna/Docusate Sodium (Senokot-S, Aimee-Colace) 1 tablet PO BID [facility] Last Admin: 09/01/18 22:06 Dose: 1 tablet Sodium Chloride () 5 - 30 ml IV UD PRN PRN Reason: SALINE FLUSH Last Admin: 09/01/18 10:38 Dose: 10 ml Sodium Chloride ([place] Nasal [place]) 2 spray NASAL TID PRN PRN PRN Reason: NASAL DRYNESS Last Admin: 09/02/18 06:08 Dose: 2 sprays Medical Necessity - Tobacco Use Smoking Status: Former smoker Assessment/Plan All Active Problems (Last Reviewed 08/24/18 @ 03:05 by Andrés Mane MD) Community acquired pneumonia (Acute) Hypoxemia (Acute) History of bilateral cataract extraction (Resolved) Status post trigger finger release (Resolved) History of cholecystectomy (Resolved) History of bilateral carpal tunnel release (Resolved) History of prostatectomy (Resolved) History of coronary artery bypass graft x 3 (Resolved) History of colonoscopy (Resolved) 33-year-old male admitted with a complaint of progressively worsening shortness of breath with assisted cough productive of yellowish and greenish sputum. He was initially admitted and managed for community-acquired pneumonia and acute on chronic hypoxic respiratory failure due to pneumonia and bronchiectasis. Since admission, he developed bilateral DVT. CT PE could not be done on account of allergies contrast. He is never been treated for bilateral lower extremity DVT and presumed PE. 1. Acute on chronic hypoxic respiratory failure Etiology is multifactorial with probable interstitial lung disease(IPF), bronchiectasis and presumed PE oxygen weaned down to 7L, but required increase to 8L o/a of patient being hypoxic during review (saturating around 82) stil on IV lasix, bronchodilators and steroids family to meet with land planner today to discuss goals of care. BIPAP prn 2. Bilateral LE DVT and presumed PE Currently on Xarelto 50 mg twice daily which was started on 08/29/2028. TO finish PO xarelto 15mg x 21 days (started 08.29.18) and then continue with xarelto 20mg daily. couldnt have CTPE because of contrast allergy 3. HFpEF and pulmonary hypertension On IV Lasix 40 mg twice daily. 4. CAD s/p CABG: Stable. 5.MGUS: Recently diagnosed. Sees Dr Sol on outpatient basis. 5. Rheumatoid arthritis: To follow-up with Dr. Cunningham on discharge. 6. Hyperglycemia due to steroids; ISS. 7. Hemorrhoids: stable. 8. Leukocytosis: White cell count is 28.8. Likely due to steroids. Will monitor 9. Hypertension: on amlodipine and metoprolol DVT prophylaxis: on xarelto GI pprophylaxis: pantoprazole Code Visit Inpatient E&M: 41188 Subs Hosp L3
--- NOTE | 2018-09-02 10:01 | PN_ITS ---
Patient Problems: Active and Suspected Problems (Last Reviewed 08/24/18 @ 03:05 by Andrés Mane MD) Community acquired pneumonia (Acute) Hypoxemia (Acute) Subjective: Patient seen and examined. He had no complaints and had a good night. Oxygen has been weaned on 7 L. He however did saturate well as reviewing him as he moves a little bit and saturation dropped down to the mid 80s. Oxygen increased to 8 L and saturations slowly went up to about 86%. Family to meet with pulmonology today to discuss goals of care. He denies any fever chills, cough or chest pain, abdominal pain, any diarrhea vomiting. Review of systems otherwise negative. Labs and vitals reviewed Vitals/I&O's: Vital Signs Temp Pulse Resp BP Pulse Ox 96.9 F L 90 15 105/67 91 09/02/18 08:19 09/02/18 08:19 09/02/18 08:19 09/02/18 08:19 09/02/18 08:19 Oxygen Flow Rate (L/min) 8 Oxygen Delivery Method Nasal Cannula Weight: 187 lb 6.287 oz Body Mass Index (BMI) 28.9 Intake and Output for Last 24 Hours 08/31/18 09/01/18 09/02/18 23:59 23:59 23:59 Intake Total 2880 / 2880 860 / 860 700 / 700 Output Total 2655 / 2655 1450 / 1450 700 / 700 Balance 225 / 225 -590 / -590 0 / 0 General: Alert, Oriented x3, Cooperative, No apparent distress HEENT: Atraumatic, PERRLA, EOMI, Normocephalic Oral: Moist Mucosa Neck: Supple, No JVD, Negative Carotid Bruits Lungs: - - has some coarse crackles in mid and lower lung gallego; no wheezing. on 8L of oxygen. Cardiovascular: Regular rate, Regular Rhythm, Normal S1, Normal S2, No murmurs Abdomen: Bowel Sounds Present, Soft, Non Tender, Non-Distended, No Hepato- splenomegaly Extremities: No clubbing, No cyanosis, No edema, Capillary Refill Less than 3 Seconds Skin: No rashes, No breakdown Musculoskeletal: No Tenderness to Palpation of Joints or Extremities Lymphatic: No Cervical, Supraclavicular, or Inguinal Adenopathy Neurological: Cranial nerves II-XII grossly intact, Neuro grossly intact, Motor Exam 5/5 strength throughout Psych/Mental Status: Normal Affect, Appropriate, Alert and oriented to time, place, person, mood and affect Laboratory Results 08/31/18 04:10: Diff Path Review Reviewed 09/01/18 05:05: Absolute Neuts (auto) 28.4 H, Absolute Lymphs (auto) 2.55, Total Counted 100, Neutrophils % (Manual) 88 H, Lymphocytes % (Manual) 8 L, Monocytes % (Manual) 3, Myelocytes % 1 H, Diff Path Review Reviewed, Platelet Estimate ADEQUATE, RBC Morphology NORM C+C 09/02/18 04:27: WBC 28.8 H, RBC 4.81, Hgb 14.4, Hct 43.1, MCV 89.6, MCH 29.9, MCHC 33.4, RDW 13.4, RDW Differential 43.8, Plt Count 317, MPV 9.8, Neut % (Auto) Not Reportable, Absolute Neuts (auto) Not Reportable, Total Counted 100, Neutrophils % (Manual) 72 H, Band Neutrophils % 3, Lymphocytes % (Manual) 13 L, Monocytes % (Manual) 11 H, Eosinophils % (Manual) 1, Diff Path Review May foll Diagnostic Data Chest CT 08/24/18 11:20 IMPRESSION: Changes compatible with a progressive pulmonary fibrosis with evidence of honeycombing and bronchiectasis. This is worse in the right hemithorax. Enlarged bilateral axillary lymph nodes. Electronically Signed: Joseph Sheriff MD at 12:53 EST Tel [phone], Service support , Chest X-Ray 08/30/18 07:38 IMPRESSION: Persistent bilateral peripheral mixed interstitial and air space opacities some of which maybe chronic. Acute disease unfortunately cannot be excluded. Electronically Signed: Carmencita Barron MD at 8:23 EST , Service support , Current Medications Acetaminophen (Tylenol) 650 mg PO Q4H PRN PRN PRN Reason: FEVER Last Admin: 08/24/18 16:16 Dose: 650 mg Albuterol Sulfate (Ventolin Aerosols) 2.5 mg INHALATION Q2H PRN PRN PRN Reason: SHORTNESS OF BREATH Last Admin: 08/24/18 04:02 Dose: 2.5 mg Albuterol/Ipratropium (Duoneb) 3 ml INHALATION Q4H.RT [facility] Last Admin: 09/02/18 06:57 Dose: 3 ml Amlodipine Besylate (Norvasc) 10 mg PO DAILY [facility] Last Admin: 09/01/18 10:37 Dose: 10 mg Aspirin (Ecotrin) 81 mg PO DAILY@0800 [facility] Last Admin: 09/02/18 08:10 Dose: 81 mg Benzonatate (Tessalon Perle) 200 mg PO TID PRN PRN PRN Reason: COUGH Chlorhexidine Gluconate () 1 each TOPICAL DAILY [facility] Last Admin: 09/01/18 10:38 Dose: 1 each Cholecalciferol (Vitamin D) 5,000 unit PO DAILY [facility] Last Admin: 09/01/18 10:38 Dose: 5,000 unit Furosemide (Lasix) 40 mg IV BID@1000,1800 [facility] Last Admin: 09/01/18 18:16 Dose: 40 mg Guaifenesin (Mucinex) 1,200 mg PO BID [facility] Last Admin: 09/01/18 22:06 Dose: 1,200 mg Hydroxyzine Pamoate (Vistaril Pamoate Capsule) 25 mg PO QHS PRN PRN Reason: SLEEP Last Admin: 08/28/18 21:45 Dose: 25 mg Sodium Chloride () 250 mls @ 15 mls/hr IV .[id number] PRN PRN Reason: SALINE FLUSH Last Admin: 08/25/18 11:39 Dose: 15 mls/hr Ipratropium [place] (Atrovent Nasal [place] (G)) 2 spray NASAL BID [facility] Last Admin: 09/01/18 22:06 Dose: 2 spray Lactobacillus Acidophilus (Acidophilus) 1 tablet PO DAILY [facility] Last Admin: 09/01/18 10:37 Dose: 1 tablet Metoprolol Tartrate (Lopressor (Beta Haris)) 25 mg PO BID [facility] Last Admin: 09/01/18 22:05 Dose: 25 mg [facility]ivit[facility] ([facility]) [facility] Last Admin: 09/02/18 08:10 Dose: 1 tablet Ondansetron HCl (Zofran) 4 mg IV Q8H PRN PRN PRN Reason: NAUSEA Pantoprazole Sodium (Protonix) 20 mg PO DAILY [facility] Last Admin: 09/01/18 10:37 Dose: 20 mg Prednisone () 40 mg PO DAILY@0800 [facility] Last Admin: 09/02/18 08:12 Dose: 40 mg Rivaroxaban ([facility]arelto) [facility] Last Admin: 09/02/18 08:13 Dose: 15 mg Senna/Docusate Sodium (Senokot-S, Aimee-Colace) 1 tablet PO BID [facility] Last Admin: 09/01/18 22:06 Dose: 1 tablet Sodium Chloride () 5 - 30 ml IV UD PRN PRN Reason: SALINE FLUSH Last Admin: 09/01/18 10:38 Dose: 10 ml Sodium Chloride ([place] Nasal [place]) 2 spray NASAL TID PRN PRN PRN Reason: NASAL DRYNESS Last Admin: 09/02/18 06:08 Dose: 2 sprays Medical Necessity - Tobacco Use Smoking Status: Former smoker Assessment/Plan All Active Problems (Last Reviewed 08/24/18 @ 03:05 by Andrés Mane MD) Community acquired pneumonia (Acute) Hypoxemia (Acute) History of bilateral cataract extraction (Resolved) Status post trigger finger release (Resolved) History of cholecystectomy (Resolved) History of bilateral carpal tunnel release (Resolved) History of prostatectomy (Resolved) History of coronary artery bypass graft x 3 (Resolved) History of colonoscopy (Resolved) 33-year-old male admitted with a complaint of progressively worsening shortness of breath with assisted cough productive of yellowish and greenish sputum. He was initially admitted and managed for community-acquired pneumonia and acute on chronic hypoxic respiratory failure due to pneumonia and bronchiectasis. Since admission, he developed bilateral DVT. CT PE could not be done on account of allergies contrast. He is never been treated for bilateral lower extremity DVT and presumed PE. 1. Acute on chronic hypoxic respiratory failure * Etiology is multifactorial with probable interstitial lung disease(IPF), bronchiectasis and presumed PE * oxygen weaned down to 7L, but required increase to 8L o/a of patient being hypoxic during review (saturating around 82) * stil on IV lasix, bronchodilators and steroids * family to meet with plant sprayer today to discuss goals of care. * BIPAP prn * 2. Bilateral LE DVT and presumed PE * Currently on Xarelto 50 mg twice daily which was started on 08/29/2028. TO finish PO xarelto 15mg x 21 days (started 08.29.18) and then continue with xarelto 20mg daily. * couldnt have CTPE because of contrast allergy * * 3. HFpEF and pulmonary hypertension * On IV Lasix 40 mg twice daily. * 4. CAD s/p CABG: Stable. 5.MGUS: Recently diagnosed. Sees Dr Sol on outpatient basis. 5. Rheumatoid arthritis: To follow-up with Dr. Cunningham on discharge. 6. Hyperglycemia due to steroids; ISS. 7. Hemorrhoids: stable. 8. Leukocytosis: White cell count is 28.8. Likely due to steroids. Will monitor 9. Hypertension: on amlodipine and metoprolol DVT prophylaxis: on xarelto GI pprophylaxis: pantoprazole Code Visit Inpatient E&M: 01015 Subs Hosp L3
--- NOTE | 2018-09-02 10:24 | PCM.PN.INT ---
Subjective: Patient did well overnight. Patient was initiated on prednisone therapy and there were no allergic type reactions reported. Patient reports subjective issues with sinus congestion and sore throat, but respiratory effort appears to be unchanged subjectively. No bleeding complications have been reported. General: Alert, Oriented x3, Cooperative, No apparent distress, Well developed, Well nourished, - - Conversational dyspnea continues to improve. HEENT: Atraumatic, PERRLA, EOMI, Normocephalic, - - No scleral icterus or injection noted. Oral: Moist Mucosa, No Gingival or Mucosal Lesions/ Ulcerations Neck: Supple, No JVD, No Nodes, Trachea Midline Lungs: No rhonchi, No wheeze, Diminished, Rales, - - Symmetric expansion. No dullness to percussion. Cardiovascular: Regular rate, Regular Rhythm, Normal S1, Normal S2, No murmurs, No rub noted, No Gallop Abdomen: Bowel Sounds Present, Soft, Non Tender, Non-Distended Extremities: No cyanosis, No edema, Capillary Refill Less than 3 Seconds, Clubbing Skin: - - No significant change compared to previous Musculoskeletal: No Tenderness to Palpation of Joints or Extremities, No Muscle Wasting Lymphatic: No Cervical, Supraclavicular, or Inguinal Adenopathy Neurological: Cranial nerves II-XII grossly intact, Neuro grossly intact, Motor Exam 5/5 strength throughout Psych/Mental Status: Alert and oriented to time, place, person, mood and affect Vital Signs Temp Pulse Resp BP Pulse Ox 36.2 C L 90 19 H 118/74 94 09/02/18 10:16 09/02/18 10:16 09/02/18 10:16 09/02/18 10:16 09/02/18 10:16 Oxygen Flow Rate (L/min) 7 Oxygen Delivery Method Nasal Cannula Weight: 85 kg Body Mass Index (BMI) 28.9 Intake and Output for Last 24 Hours 08/31/18 09/01/18 09/02/18 23:59 23:59 23:59 Intake Total 2880 / 2880 860 / 860 700 / 700 Output Total 2655 / 2655 1450 / 1450 700 / 700 Balance 225 / 225 -590 / -590 0 / 0 Labs (Last 48 Hours) 08/29/18 08/31/18 09/01/18 06:07 04:10 05:05 WBC 31.9 H* RBC 4.75 Hgb 14.4 Hct 42.8 MCV 90.1 MCH 30.3 MCHC 33.6 RDW 13.5 RDW Differential 43.6 Plt Count 375 MPV 9.9 Neut % (Auto) Not Reportable Absolute Neuts (auto) 27.1 H 28.4 H Absolute Lymphs (auto) 1.22 2.55 Total Counted 100 100 Neutrophils % (Manual) 89 H 88 H Band Neutrophils % Lymphocytes % (Manual) 4 L 8 L Monocytes % (Manual) 5 3 Eosinophils % (Manual) Myelocytes % 2 H 1 H Diff Path Review Reviewed Reviewed Reviewed Platelet Estimate ADEQUATE ADEQUATE RBC Morphology NORM C+C NORM C+C Sodium Potassium Chloride Carbon Dioxide Anion Gap BUN Creatinine Estim Creat Clear Calc Est GFR (MDRD) Af Amer Est GFR (MDRD) Non-Af BUN/Creatinine Ratio Glucose Calcium 09/01/18 09/02/18 05:05 04:27 WBC 28.8 H RBC 4.81 Hgb 14.4 Hct 43.1 MCV 89.6 MCH 29.9 MCHC 33.4 RDW 13.4 RDW Differential 43.8 Plt Count 317 MPV 9.8 Neut % (Auto) Not Reportable Absolute Neuts (auto) Not Reportable Absolute Lymphs (auto) Total Counted 100 Neutrophils % (Manual) 72 H Band Neutrophils % 3 Lymphocytes % (Manual) 13 L Monocytes % (Manual) 11 H Eosinophils % (Manual) 1 Myelocytes % Diff Path Review May foll Platelet Estimate RBC Morphology Sodium 138 Potassium 3.9 Chloride 97 L Carbon Dioxide 30.0 Anion Gap 11 BUN 27 H Creatinine 0.84 Estim Creat Clear Calc 75.98 Est GFR (MDRD) Af Amer 114 Est GFR (MDRD) Non-Af 94 BUN/Creatinine Ratio 32.0 H Glucose 152 H Calcium 8.0 L Medical Necessity - Tobacco Use Smoking Status: Former smoker Assessment/Plan All Active Problems (Last Reviewed 08/24/18 @ 03:05 by Andrés Mane MD) Community acquired pneumonia (Acute) Hypoxemia (Acute) History of bilateral cataract extraction (Resolved) Status post trigger finger release (Resolved) History of cholecystectomy (Resolved) History of bilateral carpal tunnel release (Resolved) History of prostatectomy (Resolved) History of coronary artery bypass graft x 3 (Resolved) History of colonoscopy (Resolved) RECOMMENDATIONS: 1. Continue antibiotics as ordered to complete treatment course. 2. Continue scheduled bronchodilators, transition to p.o. steroids and scheduled Lasix 3. Continue Xarelto therapy 4. Wean supplemental oxygen as tolerated. Goal oxygen saturation at or above 88%. 5. Encourage aggressive incentive spirometer use and mobilize patient as elevated. 6. Likely okay to leave the intensive care unit from my perspective IMPRESSIONS: 1. Acute hypoxic respiratory failure/underlying mixed ventilatory defect with exacerbation/bronchiectasis/presumed PE Patient currently on steroids, bronchodilators and scheduled Lasix therapy. Patient is reporting some improvement following diuretic therapy. Patient also was found to have positive lower extremity Dopplers. Patient tolerating systemic anticoagulation and diuretics well. Will recheck labs tomorrow. Patient has been weaned to 7 L nasal cannula. However, patient desaturates quickly with any movement. Patient may require LTAC placement for recovery. Will discuss with family this afternoon, but clinical suspicion is that aggressive course will be maintained. 2. Heart failure with preserved ejection fraction/pulmonary hypertension The patient's pulmonary hypertension is most likely the consequence of his underlying pulmonary process coupled with hypoxia. Continue current supportive measures as noted above. The patient will be continued on Lasix 40 mg twice daily. Goal -1-2 L of fluid balance daily. Patient's weight continues to decrease despite relatively even balance is. 3. Lower extremity DVTs Lower extremity Dopplers to show DVTs. Patient appears to be tolerating Xarelto therapy well. Oxygenation is improving slightly. 4. Recently diagnosed rheumatoid arthritis and MGUS Patient was found to be positive rheumatoid factor and anti-CCP antibody. However, patient was also noted to have MGUS, so this is delayed any initiation of therapy. Patient has been consulted with the [facility] and Dr. Silva did discuss potential treatment options. Possible Imuran initiation if cleared by hematology. Patient is currently scheduled for a follow-up visit on October 12. 5. Prior history of tobacco abuse/hypertension/GERD Complicates care, management, recovery and prognosis. Continue home medications as indicated. Code Visit Inpatient E&M: 04237 [facility] L3
--- NOTE | 2018-09-02 11:36 | CASEMGMT ---
Dr. Hein to speak w/pt and family this afternoon. SW to follow up as appropriate regarding discharge plan. CLARKE Barksdale, PHARMACY ANCILLARY
[2018-09-02] MEDS: Senna/Docusate Sodium 1 Tablet PO ×2 (11:37→21:21)
[2018-09-02 13:47] LABS: Pathologist Review Reviewed
[2018-09-02] MEDS: 0.9% NaCl Peripheral Flush Adult/Peds IV (16:50)
--- NOTE | 2018-09-02 22:40 | NURSING ---
This RN spoke to the pt's son on the phone. He was concerned about pt going back on the BIPAP after speaking with the pt. This RN explained to him that pt was satting 86% on 7LNC at the start of shift, but was doing well now that his oxygen was turned up to 10LNC and maintaining his goal of satting greater than 88%. This RN explained that the BIPAP was at bedside incase, but not needed at this time. The pt's son denied further questions on the phone.
[2018-09-03] VITALS (22 sets, daily range): BP systolic 96–139; BP diastolic 58–73; PULSE 57–84; RESP 14–19; TEMP 36.4–37; O2SAT 89–95
[2018-09-03 00:44] LABS: Absolute Neutrophil Count 21.6 X10^3/uL (2.0-7.7)
[2018-09-03 00:45] LABS: Platelet Estimate ADEQUATE (ADEQ)
[2018-09-03 00:46] LABS: Red Cell Morphology NORM C+C NORMAL (NORM C&C)
--- NOTE | 2018-09-03 01:35 | CPS ---
pt refuses bipap at this time [id number] 09/02/18
[2018-09-03 06:32] LABS: Anion Gap 8 (5-15); BUN 26 mg/dL (7-18); Calcium,Total 7.8 mg/dL (8.5-10.1); Chloride 97 mmol/L (98-107); Creatinine, Serum 0.68 mg/dL (0.70-1.30); EST Glomerular Filtration Rate 120 mL/min (>60); Est Glom Filt Rate - Afr Amer 145 mL/min (>60); Estimated Creatinine Clearance 63.83 ml/min; Glucose 80 mg/dL (74-106); Magnesium 2.3 mg/dL (1.6-2.6); Phosphorus 3.5 mg/dL (2.5-4.9); Potassium 3.4 mmol/L (3.5-5.1); Sodium Level 138 mmol/L (136-145)
[2018-09-03 06:42] LABS: Hemoglobin 15.1 g/dl (13.0-16.5); Mean Corp Hgb Conc 33.6 g/gl (32-36); Mean Corpuscular Hgb 30.1 pg (27.0-32.0); Mean Corpuscular Volume 89.6 fL (80-94); Mean Platelet Vol. 10.2 fl (6.2-12.0); Platelet Count 310 K/mm3 (150-450); RBC Distribution Width CV 13.8 % (11.6-14.6); RBC Distribution Width SD 44.9 fl (35.1-43.9); Red Blood Count 5.02 M/mm3 (4.6-6.2); White Blood Count 25.2 K/mm3 (4.4-11.0)
[2018-09-03 06:45] LABS: Differential Indicated MANUAL DIFF; POSITIVE COUNT YES; POSITIVE DIFFERENTIAL YES; POSITIVE MORPHOLOGY YES
[2018-09-03] MEDS: Ipratropium/Albuterol Sulfate 3 ML AMPUL.NEB INHALATION ×4 (07:02→22:42)
[2018-09-03 07:20] LABS: Eosinophil 1 % (0-5); Lymphocyte 10 % (19-41); Monocyte 8 % (0-10); Neutrophil-Segmented 81 % (47-70); Total Cells Counted 100 (MANUAL DIFF)
[2018-09-03 07:21] LABS: Platelet Estimate ADEQUATE (ADEQ); Red Cell Morphology NORM C+C NORMAL (NORM C&C)
[2018-09-03 07:22] LABS: Absolute Lymphocyte Count 2.52 X10^3/ul (0.83-4.51); Absolute Neutrophil Count 20.4 X10^3/uL (2.0-7.7)
--- NOTE | 2018-09-03 08:39 | PCM.PN.INT ---
Subjective: Patient transferred out of the intensive care unit yesterday. Patient did report some difficulties overnight requiring increase in FiO2. Patient continues to desaturate with activity. Patient is unclear if difficulties overnight were secondary to movement. Nasal congestion is slightly improved compared to previous. Patient has been able to be weaned on FiO2. General: Alert, Oriented x3, Cooperative, - - Mild conversational dyspnea. Sitting in the chair eating breakfast. HEENT: Atraumatic, PERRLA, EOMI, Normocephalic, - - No scleral icterus or injection noted. Oral: Moist Mucosa, No Gingival or Mucosal Lesions/ Ulcerations Neck: Supple, No JVD, No Nodes, Trachea Midline Lungs: No rhonchi, No wheeze, Diminished, Rales, - - Symmetric expansion. No dullness to percussion. Cardiovascular: Regular rate, Regular Rhythm, Normal S1, Normal S2, No murmurs, No rub noted, No Gallop Abdomen: Bowel Sounds Present, Soft, Non Tender, Non-Distended Extremities: No cyanosis, No edema, Capillary Refill Less than 3 Seconds, Clubbing Skin: No rashes, No breakdown Musculoskeletal: No Tenderness to Palpation of Joints or Extremities Lymphatic: No Cervical, Supraclavicular, or Inguinal Adenopathy Neurological: Cranial nerves II-XII grossly intact, Neuro grossly intact, Motor Exam 5/5 strength throughout Psych/Mental Status: Alert and oriented to time, place, person, mood and affect Vital Signs Temp Pulse Resp BP Pulse Ox 36.9 C 59 L 18 139/73 H 95 09/03/18 05:04 09/03/18 07:12 09/03/18 05:04 09/03/18 05:04 09/03/18 05:04 Oxygen Flow Rate (L/min) 8 Oxygen Delivery Method Nasal Cannula Weight: 84.5 kg Body Mass Index (BMI) 28.9 Intake and Output for Last 24 Hours 09/01/18 09/02/18 09/03/18 23:59 23:59 23:59 Intake Total 860 / 860 1400 / 1400 Output Total 1450 / 1450 1775 / 1775 675 / 675 Balance -590 / -590 -375 / -375 -675 / -675 Labs (Last 48 Hours) 08/31/18 09/01/18 09/02/18 04:10 05:05 04:27 WBC 28.8 H RBC 4.81 Hgb 14.4 Hct 43.1 MCV 89.6 MCH 29.9 MCHC 33.4 RDW 13.4 RDW Differential 43.8 Plt Count 317 MPV 9.8 Neut % (Auto) Not Reportable Absolute Neuts (auto) 28.4 H 21.6 H Absolute Lymphs (auto) 2.55 3.70 Total Counted 100 100 Neutrophils % (Manual) 88 H 72 H Band Neutrophils % 3 Lymphocytes % (Manual) 8 L 13 L Monocytes % (Manual) 3 11 H Eosinophils % (Manual) 1 Myelocytes % 1 H Diff Path Review Reviewed Reviewed Reviewed Platelet Estimate ADEQUATE ADEQUATE RBC Morphology NORM C+C NORM C+C Sodium Potassium Chloride Carbon Dioxide Anion Gap BUN Creatinine Estim Creat Clear Calc Est GFR (MDRD) Af Amer Est GFR (MDRD) Non-Af BUN/Creatinine Ratio Glucose Calcium Phosphorus Magnesium 09/03/18 09/03/18 05:45 05:45 WBC 25.2 H RBC 5.02 Hgb 15.1 Hct 45.0 MCV 89.6 MCH 30.1 MCHC 33.6 RDW 13.8 RDW Differential 44.9 H Plt Count 310 MPV 10.2 Neut % (Auto) Not Reportable Absolute Neuts (auto) 20.4 H Absolute Lymphs (auto) 2.52 Total Counted 100 Neutrophils % (Manual) 81 H Band Neutrophils % Lymphocytes % (Manual) 10 L Monocytes % (Manual) 8 Eosinophils % (Manual) 1 Myelocytes % Diff Path Review May foll Platelet Estimate ADEQUATE RBC Morphology NORM C+C Sodium 138 Potassium 3.4 L Chloride 97 L Carbon Dioxide 33.0 H Anion Gap 8 BUN 26 H Creatinine 0.68 L Estim Creat Clear Calc 63.83 Est GFR (MDRD) Af Amer 145 Est GFR (MDRD) Non-Af 120 BUN/Creatinine Ratio 38.0 H Glucose 80 Calcium 7.8 L Phosphorus 3.5 Magnesium 2.3 Medical Necessity - Tobacco Use Smoking Status: Former smoker Assessment/Plan All Active Problems (Last Reviewed 08/24/18 @ 03:05 by Andrés Mane MD) Community acquired pneumonia (Acute) Hypoxemia (Acute) History of bilateral cataract extraction (Resolved) Status post trigger finger release (Resolved) History of cholecystectomy (Resolved) History of bilateral carpal tunnel release (Resolved) History of prostatectomy (Resolved) History of coronary artery bypass graft x 3 (Resolved) History of colonoscopy (Resolved) RECOMMENDATIONS: 1. Continue diuresis as tolerated. 2. Continue scheduled bronchodilators, transition to p.o. steroids with prolonged taper 3. Continue Xarelto therapy 4. Wean supplemental oxygen as tolerated. Goal oxygen saturation at or above 88%. 5. Encourage aggressive incentive spirometer use and mobilize patient as elevated. 6. Consider disposition to LTAC IMPRESSIONS: 1. Acute hypoxic respiratory failure/underlying mixed ventilatory defect with exacerbation/bronchiectasis/presumed PE Patient currently on steroids, bronchodilators and scheduled Lasix therapy. Patient is reporting some improvement following diuretic therapy. Patient also was found to have positive lower extremity Dopplers. Patient tolerating systemic anticoagulation well. Patient has been weaned to 8 L nasal cannula. However, patient desaturates quickly with any movement. Patient may require LTAC placement for recovery. Discussed with family yesterday. Aggressive stance should be continued. They understand that this may represent IPF, which has a poor long-term prognosis, but patient is making strides with current therapy. 2. Heart failure with preserved ejection fraction/pulmonary hypertension The patient's pulmonary hypertension is most likely the consequence of his underlying pulmonary process coupled with hypoxia. Continue current supportive measures as noted above. The patient will be continued on Lasix 40 mg twice daily. Goal -1-2 L of fluid balance daily. Patient's weight continues to decrease despite relatively even balances. 3. Lower extremity DVTs Lower extremity Dopplers to show DVTs. Patient appears to be tolerating Xarelto therapy well. Oxygenation is improving slightly. 4. Recently diagnosed rheumatoid arthritis and MGUS Patient was found to be positive rheumatoid factor and anti-CCP antibody. However, patient was also noted to have MGUS, so this is delayed any initiation of therapy. Patient has been consulted with the [facility] and Dr. Silva did discuss potential treatment options. Possible Imuran initiation if cleared by hematology. Patient is currently scheduled for a follow-up visit on October 12. 5. Prior history of tobacco abuse/hypertension/GERD Complicates care, management, recovery and prognosis. Continue home medications as indicated. Code Visit Inpatient E&M: 82870 Subs Hosp L3
[2018-09-03] MEDS: predniSONE 20 MG Tablet 40 MG PO (09:35)
[2018-09-03] MEDS: Senna/Docusate Sodium 1 Tablet PO ×2 (09:35→22:26)
[2018-09-03] MEDS: Multivitamins,Therapeutic Tablet 1 TABLET PO (09:36)
[2018-09-03] MEDS: Aspirin E.C. 81 MG Tablet PO (09:36)
[2018-09-03] MEDS: Rivaroxaban 15 MG Tablet PO ×2 (09:37→17:13)
[2018-09-03] MEDS: Metoprolol Tartrate 25 MG Tablet PO ×2 (09:39→22:26)
[2018-09-03] MEDS: amLODIPine 10 MG Tablet PO (09:40)
[2018-09-03] MEDS: guaiFENesin 1,200 MG Tablet 1200 MG PO ×2 (09:40→22:26)
[2018-09-03] MEDS: Pantoprazole Sodium 20 MG Tablet PO (09:41)
[2018-09-03] MEDS: Furosemide 40 MG/4 ML Vial IV ×2 (09:46→18:08)
[2018-09-03] MEDS: 0.9% NaCl Peripheral Flush Adult/Peds IV ×2 (09:53→18:08)
--- NOTE | 2018-09-03 11:11 | CASEMGMT ---
Addendum entered by Olivia Ayon 09/03/18 12:44: Lay, @ [facility] made aware pt and family requesting the [facility] in [place]. She was also made aware possible discharge tomorrow 09/04. Original Note: KEYONNA VENEGAS NOTE: Spoke with pt and family re: LTACH and their preference. They state their 1st choice is [facility] in [place]. Call placed to Lay Rosales, Clinical Liaison, and referral made. Clinical data faxed to [facility] @ [phone]. Cortney ROPER RN, CM
--- NOTE | 2018-09-03 12:32 | PN_ITS ---
Patient Problems: Active and Suspected Problems (Last Reviewed 08/24/18 @ 03:05 by Andrés Mane MD) Community acquired pneumonia (Acute) Hypoxemia (Acute) Subjective: She was seen and examined. Complains of dyspnea on slight exertion. Denied chest pain no dizziness or shortness of breath. Objective: Physical exam: General: Alert, Oriented x3, Cooperative, No apparent distress HEENT: Atraumatic, PERRLA, EOMI, Normocephalic Oral: Moist Mucosa Neck: Supple, No JVD, Negative Carotid Bruits Lungs: - - has some coarse crackles in mid and lower lung gallego; no wheezing. on 8L of oxygen. Cardiovascular: Regular rate, Regular Rhythm, Normal S1, Normal S2, No murmurs Abdomen: Bowel Sounds Present, Soft, Non Tender, Non-Distended, No Hepato- splenomegaly Extremities: No clubbing, No cyanosis, No edema, Capillary Refill Less than 3 Seconds Skin: No rashes, No breakdown Musculoskeletal: No Tenderness to Palpation of Joints or Extremities Lymphatic: No Cervical, Supraclavicular, or Inguinal Adenopathy Neurological: Cranial nerves II-XII grossly intact, Neuro grossly intact, Motor Exam 5/5 strength throughout Psych/Mental Status: Normal Affect, Appropriate, Alert and oriented to time, place, person, mood and affect Vitals/I&O's: Vital Signs Temp Pulse Resp BP Pulse Ox 97.6 F L 72 14 103/64 91 09/03/18 11:15 09/03/18 11:15 09/03/18 11:15 09/03/18 11:15 09/03/18 11:15 Oxygen Flow Rate (L/min) 7 Oxygen Delivery Method Nasal Cannula Weight: 84.5 kg Body Mass Index (BMI) 28.9 Intake and Output for Last 24 Hours 09/01/18 09/02/18 09/03/18 23:59 23:59 23:59 Intake Total 860 / 860 1400 / 1400 400 / 400 Output Total 1450 / 1450 1775 / 1775 1325 / 1325 Balance -590 / -590 -375 / -375 -925 / -925 Laboratory Results 09/02/18 04:27: Absolute Neuts (auto) 21.6 H, Absolute Lymphs (auto) 3.70, Diff Path Review Reviewed, Platelet Estimate ADEQUATE, RBC Morphology NORM C+C 09/03/18 05:45: WBC 25.2 H, RBC 5.02, Hgb 15.1, Hct 45.0, MCV 89.6, MCH 30.1, MCHC 33.6, RDW 13.8, RDW Differential 44.9 H, Plt Count 310, MPV 10.2, Neut % (Auto) Not Reportable, Absolute Neuts (auto) 20.4 H, Absolute Lymphs (auto) 2.52, Total Counted 100, Neutrophils % (Manual) 81 H, Lymphocytes % (Manual) 10 L, Monocytes % (Manual) 8, Eosinophils % (Manual) 1, Diff Path Review February, Platelet Estimate ADEQUATE, RBC Morphology NORM C+C 09/03/18 05:45: Sodium 138, Potassium 3.4 L, Chloride 97 L, Carbon Dioxide 33.0 H, Anion Gap 8, BUN 26 H, Creatinine 0.68 L, Estim Creat Clear Calc 63.83, Est GFR (MDRD) Af Amer 145, Est GFR (MDRD) Non-Af 120, BUN/Creatinine Ratio 38.0 H, Glucose 80, Calcium 7.8 L, Phosphorus 3.5, Magnesium 2.3 Current Medications Acetaminophen (Tylenol) 650 mg PO Q4H PRN PRN PRN Reason: FEVER Last Admin: 08/24/18 16:16 Dose: 650 mg Albuterol Sulfate (Ventolin Aerosols) 2.5 mg INHALATION Q2H PRN PRN PRN Reason: SHORTNESS OF BREATH Last Admin: 08/24/18 04:02 Dose: 2.5 mg Albuterol/Ipratropium (Duoneb) 3 ml INHALATION Q4H.RT [facility] Last Admin: 09/03/18 10:33 Dose: 3 ml Amlodipine Besylate (Norvasc) 10 mg PO DAILY [facility] Last Admin: 09/03/18 09:40 Dose: 10 mg Aspirin (Ecotrin) 81 mg PO DAILY@0800 [facility] Last Admin: 09/03/18 09:36 Dose: 81 mg Benzonatate (Tessalon Perle) 200 mg PO TID PRN PRN PRN Reason: COUGH Chlorhexidine Gluconate () 1 each TOPICAL DAILY [facility] Last Admin: 09/03/18 09:39 Dose: Not Given Cholecalciferol (Vitamin D) 5,000 unit PO DAILY [facility] Last Admin: 09/03/18 09:41 Dose: 5,000 unit Furosemide (Lasix) 40 mg IV BID@1000,1800 [facility] Last Admin: 09/03/18 09:46 Dose: 40 mg Guaifenesin (Mucinex) 1,200 mg PO BID [facility] Last Admin: 09/03/18 09:40 Dose: 1,200 mg Hydroxyzine Pamoate (Vistaril Pamoate Capsule) 25 mg PO QHS PRN PRN Reason: SLEEP Last Admin: 08/28/18 21:45 Dose: 25 mg Sodium Chloride () 250 mls @ 15 mls/hr IV .[id number] PRN PRN Reason: SALINE FLUSH Last Admin: 08/25/18 11:39 Dose: 15 mls/hr Ipratropium [place] (Atrovent Nasal [place] (G)) 2 spray NASAL BID [facility] Last Admin: 09/03/18 09:39 Dose: Not Given Lactobacillus Acidophilus (Acidophilus) 1 tablet PO DAILY [facility] Last Admin: 09/03/18 09:37 Dose: 1 tablet Metoprolol Tartrate (Lopressor (Beta Haris)) 25 mg PO BID [facility] Last Admin: 09/03/18 09:39 Dose: 25 mg [facility]ivitamins ([facility]ivitamin) [facility] Last Admin: 09/03/18 09:36 Dose: 1 tablet Ondansetron HCl (Zofran) 4 mg IV Q8H PRN PRN PRN Reason: NAUSEA Pantoprazole Sodium (Protonix) 20 mg PO DAILY [facility] Last Admin: 09/03/18 09:41 Dose: 20 mg Potassium Chloride (K-Dur) 40 meq PO X1 ONE Stop: 09/03/18 12:32 Prednisone () 40 mg PO DAILY@0800 [facility] Last Admin: 09/03/18 09:35 Dose: 40 mg Rivaroxaban ([facility]arelto) [facility] Last Admin: 09/03/18 09:37 Dose: 15 mg Senna/Docusate Sodium (Senokot-S, Aimee-Colace) 1 tablet PO BID [facility] Last Admin: 09/03/18 09:35 Dose: 1 tablet Sodium Chloride () 5 - 30 ml IV UD PRN PRN Reason: SALINE FLUSH Last Admin: 09/03/18 09:53 Dose: 10 ml Sodium Chloride ([place] Nasal [place]) 2 spray NASAL TID PRN PRN PRN Reason: NASAL DRYNESS Last Admin: 09/02/18 06:08 Dose: 2 sprays Medical Necessity - Tobacco Use Smoking Status: Former smoker Assessment/Plan All Active Problems (Last Reviewed 08/24/18 @ 03:05 by Andrés Mane MD) Community acquired pneumonia (Acute) Hypoxemia (Acute) History of bilateral cataract extraction (Resolved) Status post trigger finger release (Resolved) History of cholecystectomy (Resolved) History of bilateral carpal tunnel release (Resolved) History of prostatectomy (Resolved) History of coronary artery bypass graft x 3 (Resolved) History of colonoscopy (Resolved) 1. Acute on chronic hypoxic respiratory failure, multifactorial in etiology, probable interstitial lung disease, bronchiectasis, presumed PE, on chronic diastolic CHF remains on 7 liters of oxygen, on IV Lasix bronchodilators and steroids 2. Bilateral lower extremity DVT and presumed PE, on Xarelto 3. Acute on chronic diastolic CHF, on Lasix 40mg IV BID, seizure protocol 4. CAD status post CABG, stable, on aspirin, metoprolol 5. MGUS, was an outpatient with oncology 6. RA, stable 7. Hypertension, controlled, continue on amlodipine, metoprolol 8. Hypokalemia, replaced, labs in a.m. 9. Leukocytosis due to steroids, to to trend 10. DVT PPx- On Xarelto Code Visit Inpatient E&M: 99863 Subs Hosp L2
[2018-09-03 13:03] LABS: Pathologist Review Reviewed
--- NOTE | 2018-09-03 14:55 | NURSING ---
Student nurse charting reviewed and appropriate.
[2018-09-03] MEDS: Magnesium Hydroxide 30 ML UDC PO (17:17)
[2018-09-03] MEDS: Ipratropium Bromide 0.06% NASAL SPRAY 2 SPRAY NASAL (22:25)
[2018-09-04] VITALS (17 sets, daily range): BP systolic 96–126; BP diastolic 57–73; PULSE 60–84; RESP 16–20; TEMP 36.2–36.7; O2SAT 90–94
[2018-09-04] MEDS: Ipratropium/Albuterol Sulfate 3 ML AMPUL.NEB INHALATION ×4 (06:31→22:44)
[2018-09-04 06:56] LABS: Anion Gap 6 (5-15); BUN 21 mg/dL (7-18); BUN/Creat Ratio 26.5 RATIO (10-20); Calcium,Total 7.8 mg/dL (8.5-10.1); Chloride 96 mmol/L (98-107); Creatinine, Serum 0.79 mg/dL (0.70-1.30); EST Glomerular Filtration Rate 101 mL/min (>60); Est Glom Filt Rate - Afr Amer 122 mL/min (>60); Estimated Creatinine Clearance 63.83 ml/min; Glucose 78 mg/dL (74-106); Potassium 3.7 mmol/L (3.5-5.1); Sodium Level 137 mmol/L (136-145)
[2018-09-04] MEDS: Aspirin E.C. 81 MG Tablet PO (09:12)
[2018-09-04] MEDS: predniSONE 20 MG Tablet 40 MG PO (09:13)
[2018-09-04] MEDS: Multivitamins,Therapeutic Tablet 1 TABLET PO (09:13)
[2018-09-04] MEDS: Rivaroxaban 15 MG Tablet PO ×2 (09:14→17:04)
[2018-09-04] MEDS: Metoprolol Tartrate 25 MG Tablet PO ×2 (09:15→21:55)
[2018-09-04] MEDS: Ipratropium Bromide 0.06% NASAL SPRAY 2 SPRAY NASAL (09:15)
[2018-09-04] MEDS: Pantoprazole Sodium 20 MG Tablet PO (09:16)
[2018-09-04] MEDS: guaiFENesin 1,200 MG Tablet 1200 MG PO ×2 (09:16→21:55)
[2018-09-04] MEDS: amLODIPine 10 MG Tablet PO (09:16)
[2018-09-04] MEDS: Senna/Docusate Sodium 1 Tablet PO ×2 (09:16→21:56)
[2018-09-04] MEDS: Furosemide 40 MG/4 ML Vial IV ×2 (09:18→17:07)
[2018-09-04] MEDS: 0.9% NaCl Peripheral Flush Adult/Peds IV ×2 (09:19→17:07)
--- NOTE | 2018-09-04 09:40 | PN_ITS ---
Patient Problems: Active and Suspected Problems (Last Reviewed 08/24/18 @ 03:05 by Andrés Mane MD) Community acquired pneumonia (Acute) Hypoxemia (Acute) Subjective: Patient did okay overnight. Patient is reporting increased sinus congestion this morning he did have mild epistaxis associated with blowing his nose. Patient denies any current chest pain, abdominal pain, nausea or vomiting. Patient still has some dyspnea on exertion, but thinks it might be a little bit better. - Physical Exam General: Alert, Oriented x3, Cooperative, No apparent distress, - - Mild conversational dyspnea HEENT: Atraumatic, PERRLA, EOMI, Normocephalic, - - No scleral icterus or injection noted. Oral: Moist Mucosa, No Gingival or Mucosal Lesions/ Ulcerations Neck: Supple, No JVD, No Nodes, Trachea Midline Lungs: No rhonchi, No wheeze, Diminished, Rales, - - Symmetric expansion. No dullness to percussion. Cardiovascular: Regular rate, Regular Rhythm, Normal S1, Normal S2, No murmurs, No rub noted, No Gallop Abdomen: Bowel Sounds Present, Soft, Non Tender, Non-Distended Extremities: No cyanosis, No edema, Capillary Refill Less than 3 Seconds, Clubbing Skin: No rashes, No breakdown Musculoskeletal: No Tenderness to Palpation of Joints or Extremities Lymphatic: No Cervical, Supraclavicular, or Inguinal Adenopathy Neurological: Cranial nerves II-XII grossly intact, Neuro grossly intact, Motor Exam 5/5 strength throughout Psych/Mental Status: Alert and oriented to time, place, person, mood and affect Vital Signs Temp Pulse Resp BP Pulse Ox 36.2 C L 77 18 105/70 94 09/04/18 08:54 09/04/18 09:15 09/04/18 08:54 09/04/18 08:54 09/04/18 08:54 Oxygen Flow Rate (L/min) 6 Oxygen Delivery Method Nasal Cannula Weight: 84.3 kg Body Mass Index (BMI) 28.9 Intake and Output for Last 24 Hours 09/02/18 09/03/18 09/04/18 23:59 23:59 23:59 Intake Total 1400 / 1400 950 / 950 Output Total 1775 / 1775 3550 / 3550 325 / 325 Balance -375 / -375 -2600 / -2600 -325 / -325 Laboratory Tests Past 24 Hrs 09/03/18 09/04/18 05:45 06:26 Diff Path Review Reviewed Sodium 137 Potassium 3.7 Chloride 96 L Carbon Dioxide 35.0 H Anion Gap 6 BUN 21 H Creatinine 0.79 Estim Creat Clear Calc 63.83 Est GFR (MDRD) Af Amer 122 Est GFR (MDRD) Non-Af 101 BUN/Creatinine Ratio 26.5 H Glucose 78 Calcium 7.8 L Medical Necessity - Tobacco Use Smoking Status: Former smoker Assessment/Plan All Active Problems (Last Reviewed 08/24/18 @ 03:05 by Andrés Mane MD) Community acquired pneumonia (Acute) Hypoxemia (Acute) History of bilateral cataract extraction (Resolved) Status post trigger finger release (Resolved) History of cholecystectomy (Resolved) History of bilateral carpal tunnel release (Resolved) History of prostatectomy (Resolved) History of coronary artery bypass graft x 3 (Resolved) History of colonoscopy (Resolved) RECOMMENDATIONS: 1. Continue diuresis as tolerated. 2. Continue scheduled bronchodilators, transitioned to p.o. steroids with prolonged taper 3. Continue Xarelto therapy 4. Wean supplemental oxygen as tolerated. Goal oxygen saturation at or above 88%. 5. Encourage aggressive incentive spirometer use and mobilize patient as elevated. 6. Await disposition to LTAC versus ECF IMPRESSIONS: 1. Acute hypoxic respiratory failure/underlying mixed ventilatory defect with exacerbation/bronchiectasis/presumed PE Patient currently on steroids, bronchodilators and scheduled Lasix therapy. Patient is reporting some improvement following diuretic therapy. Patient also was found to have positive lower extremity Dopplers. Patient tolerating systemic anticoagulation well. Patient has been weaned to 6 L nasal cannula. However, patient desaturates quickly with any movement. Patient may require LTAC versus ECF placement for recovery. Discussed with family yesterday. Aggressive stance should be continued. They understand that this may represent IPF, which has a poor long-term prognosis, but patient is making strides with current therapy. 2. Heart failure with preserved ejection fraction/pulmonary hypertension/cor pulmonale The patient's pulmonary hypertension is most likely the consequence of his underlying pulmonary process coupled with hypoxia. Continue current supportive measures as noted above. The patient will be continued on Lasix 40 mg twice daily. Goal -1-2 L of fluid balance daily. Patient's weight continues to decrease despite relatively even balances. Patient's renal function appears to be tolerating well. Continued response to diuretic therapy suggests cor pulmonale secondary to pulmonary fibrosis. Patient has not had a right heart catheterization for confirmation, but clinical improvement with diuretic therapy and lack of renal insufficiency suggest cor pulmonale. 3. Lower extremity DVTs Lower extremity Dopplers to show DVTs. Patient appears to be tolerating Xarelto therapy well. Oxygenation is improving slightly. 4. Recently diagnosed rheumatoid arthritis and MGUS Patient was found to be positive rheumatoid factor and anti-CCP antibody. However, patient was also noted to have MGUS, so this is delayed any initiation of therapy. Patient has been consulted with the [facility] and Dr. Silva did discuss potential treatment options. Possible Imuran initiation if cleared by hematology. Patient is currently scheduled for a follow-up visit on October 12. 5. Prior history of tobacco abuse/hypertension/GERD Complicates care, management, recovery and prognosis. Continue home medications as indicated. Code Visit Inpatient E&M: 59274 Subs Hosp L3
--- NOTE | 2018-09-04 10:08 | CASEMGMT ---
RYAN spoke with patient regarding d/c plan. SW asked him if he is denied by insurance to go to the LTACH would he be willing to go to a [facility]. He said he is not sure. RYAN told him that [facility] has a [facility] and that could possibly be an option. He said he would consider this option. Await insurance response for LTACH. Sandra LINDSEY MSW
--- NOTE | 2018-09-04 11:33 | CASEMGMT ---
KEYONNA CM NOTE: Updated Medication list faxed to [facility] @ [phone]. Spoke with Clinical Liaison, Lay re: status. Still awaiting insurance approval. Cortney ROPER RN CM
--- NOTE | 2018-09-04 14:06 | PCM.PN.HOSP ---
Patient Problems: Active and Suspected Problems (Last Reviewed 08/24/18 @ 03:05 by Andrés Mane MD) Community acquired pneumonia (Acute) Hypoxemia (Acute) Subjective: Patient seen and examined. He feels improved. On 6L oxygen. Denies chest pain, dizziness, worsening SOB. Objective: Physical exam: General: Alert, Oriented x3, Cooperative, No apparent distress HEENT: Atraumatic, PERRLA, EOMI, Normocephalic Oral: Moist Mucosa Neck: Supple, No JVD, Negative Carotid Bruits Lungs: - - few vcoarse crackles in mid and lower lung gallego; no wheezing. on 6L of oxygen. Cardiovascular: Regular rate, Regular Rhythm, Normal S1, Normal S2, No murmurs Abdomen: Bowel Sounds Present, Soft, Non Tender, Non-Distended, No Hepato-splenomegaly Extremities: No clubbing, No cyanosis, No edema, Capillary Refill Less than 3 Seconds Skin: No rashes, No breakdown Musculoskeletal: No Tenderness to Palpation of Joints or Extremities Lymphatic: No Cervical, Supraclavicular, or Inguinal Adenopathy Neurological: Cranial nerves II-XII grossly intact, Neuro grossly intact, Motor Exam 5/5 strength throughout Psych/Mental Status: Normal Affect, Appropriate, Alert and oriented to time, place, person, mood and affect Vitals/I&O's: Vital Signs Temp Pulse Resp BP Pulse Ox 97.2 F L 80 16 105/70 94 09/04/18 08:54 09/04/18 11:34 09/04/18 10:53 09/04/18 08:54 09/04/18 08:54 Oxygen Flow Rate (L/min) 6 Oxygen Delivery Method Nasal Cannula Weight: 84.3 kg Body Mass Index (BMI) 28.9 Intake and Output for Last 24 Hours 09/02/18 09/03/18 09/04/18 23:59 23:59 23:59 Intake Total 1400 / 1400 950 / 950 600 / 600 Output Total 1775 / 1775 3550 / 3550 1275 / 1275 Balance -375 / -375 -2600 / -2600 -675 / -675 Laboratory Results 09/04/18 06:26: Sodium 137, Potassium 3.7, Chloride 96 L, Carbon Dioxide 35.0 H, Anion Gap 6, BUN 21 H, Creatinine 0.79, Estim Creat Clear Calc 63.83, Est GFR (MDRD) Af Amer 122, Est GFR (MDRD) Non-Af 101, BUN/Creatinine Ratio 26.5 H, Glucose 78, Calcium 7.8 L Current Medications Acetaminophen (Tylenol) 650 mg PO Q4H PRN PRN PRN Reason: FEVER Last Admin: 08/24/18 16:16 Dose: 650 mg Albuterol Sulfate (Ventolin Aerosols) 2.5 mg INHALATION Q2H PRN PRN PRN Reason: SHORTNESS OF BREATH Last Admin: 08/24/18 04:02 Dose: 2.5 mg Albuterol/Ipratropium (Duoneb) 3 ml INHALATION Q4H.RT [facility] Last Admin: 09/04/18 10:53 Dose: 3 ml Amlodipine Besylate (Norvasc) 10 mg PO DAILY [facility] Last Admin: 09/04/18 09:16 Dose: 10 mg Aspirin (Ecotrin) 81 mg PO DAILY@0800 [facility] Last Admin: 09/04/18 09:12 Dose: 81 mg Benzonatate (Tessalon Perle) 200 mg PO TID PRN PRN PRN Reason: COUGH Chlorhexidine Gluconate () 1 each TOPICAL DAILY [facility] Last Admin: 09/04/18 09:22 Dose: Not Given Cholecalciferol (Vitamin D) 5,000 unit PO DAILY [facility] Last Admin: 09/04/18 09:17 Dose: 5,000 unit Furosemide (Lasix) 40 mg IV BID@1000,1800 [facility] Last Admin: 09/04/18 09:18 Dose: 40 mg Guaifenesin (Mucinex) 1,200 mg PO BID [facility] Last Admin: 09/04/18 09:16 Dose: 1,200 mg Hydroxyzine Pamoate (Vistaril Pamoate Capsule) 25 mg PO QHS PRN PRN Reason: SLEEP Last Admin: 08/28/18 21:45 Dose: 25 mg Sodium Chloride () 250 mls @ 15 mls/hr IV .[id number] PRN PRN Reason: SALINE FLUSH Last Admin: 08/25/18 11:39 Dose: 15 mls/hr Ipratropium [place] (Atrovent Nasal [place] (G)) 2 spray NASAL BID [facility] Last Admin: 09/04/18 09:15 Dose: 2 spray Lactobacillus Acidophilus (Acidophilus) 1 tablet PO DAILY [facility] Last Admin: 09/04/18 09:14 Dose: 1 tablet Magnesium Hydroxide (Milk Of Magnesia) 30 ml PO DAILY PRN PRN Reason: Constipation Last Admin: 09/03/18 17:17 Dose: 30 ml Metoprolol Tartrate (Lopressor (Beta Haris)) 25 mg PO BID [facility] Last Admin: 09/04/18 09:15 Dose: 25 mg [facility] Last Admin: 09/04/18 09:13 Dose: 1 tablet Ondansetron HCl (Zofran) 4 mg IV Q8H PRN PRN PRN Reason: NAUSEA Pantoprazole Sodium (Protonix) 20 mg PO DAILY [facility] Last Admin: 09/04/18 09:16 Dose: 20 mg Prednisone () 40 mg PO DAILY@0800 [facility] Last Admin: 09/04/18 09:13 Dose: 40 mg [facility]) [facility] Last Admin: 09/04/18 09:14 Dose: 15 mg Senna/Docusate Sodium (Senokot-S, Aimee-Colace) 1 tablet PO BID [facility] Last Admin: 09/04/18 09:16 Dose: 1 tablet Sodium Chloride () 5 - 30 ml IV UD PRN PRN Reason: SALINE FLUSH Last Admin: 09/04/18 09:19 Dose: 10 ml Sodium Chloride ([place] Nasal [place]) 2 spray NASAL TID PRN PRN PRN Reason: NASAL DRYNESS Last Admin: 09/02/18 06:08 Dose: 2 sprays Medical Necessity - Tobacco Use Smoking Status: Former smoker Assessment/Plan All Active Problems (Last Reviewed 08/24/18 @ 03:05 by Andrés Mane MD) Community acquired pneumonia (Acute) Hypoxemia (Acute) History of bilateral cataract extraction (Resolved) Status post trigger finger release (Resolved) History of cholecystectomy (Resolved) History of bilateral carpal tunnel release (Resolved) History of prostatectomy (Resolved) History of coronary artery bypass graft x 3 (Resolved) History of colonoscopy (Resolved) 1. Acute on chronic hypoxic respiratory failure, multifactorial in etiology, probable interstitial lung disease, bronchiectasis, presumed PE, on chronic diastolic CHF mildly improving, on 6 liters of oxygen now, on IV Lasix bronchodilators and steroids 2. Bilateral lower extremity DVT and presumed PE, on Xarelto 3. Acute on chronic diastolic CHF, on Lasix 40mg IV BID, will continue per CHF protocol. 4. CAD status post CABG, stable, on aspirin, metoprolol 5. MGUS, following outpatient with oncology 6. RA, stable 7. Hypertension, controlled, continue on amlodipine, metoprolol 8. Hyperkalemia, on oral potassium, will dc potassium, repeat blood work 9. DVT PPx- On Xarelto Code Visit Inpatient E&M: 53506 Subs Hosp L2
--- NOTE | 2018-09-04 14:16 | PN_ITS ---
Patient Problems: Active and Suspected Problems (Last Reviewed 08/24/18 @ 03:05 by Andrés Mane MD) Community acquired pneumonia (Acute) Hypoxemia (Acute) Subjective: Patient seen and examined. He feels improved. On 6L oxygen. Denies chest pain, dizziness, worsening SOB. Objective: Physical exam: General: Alert, Oriented x3, Cooperative, No apparent distress HEENT: Atraumatic, PERRLA, EOMI, Normocephalic Oral: Moist Mucosa Neck: Supple, No JVD, Negative Carotid Bruits Lungs: - - few vcoarse crackles in mid and lower lung gallego; no wheezing. on 6L of oxygen. Cardiovascular: Regular rate, Regular Rhythm, Normal S1, Normal S2, No murmurs Abdomen: Bowel Sounds Present, Soft, Non Tender, Non-Distended, No Hepato-spleno megaly Extremities: No clubbing, No cyanosis, No edema, Capillary Refill Less than 3 Seconds Skin: No rashes, No breakdown Musculoskeletal: No Tenderness to Palpation of Joints or Extremities Lymphatic: No Cervical, Supraclavicular, or Inguinal Adenopathy Neurological: Cranial nerves II-XII grossly intact, Neuro grossly intact, Motor Exam 5/5 strength throughout Psych/Mental Status: Normal Affect, Appropriate, Alert and oriented to time, place, person, mood and affect Vitals/I&O's: Vital Signs Temp Pulse Resp BP Pulse Ox 97.2 F L 80 16 105/70 94 09/04/18 08:54 09/04/18 11:34 09/04/18 10:53 09/04/18 08:54 09/04/18 08:54 Oxygen Flow Rate (L/min) 6 Oxygen Delivery Method Nasal Cannula Weight: 84.3 kg Body Mass Index (BMI) 28.9 Intake and Output for Last 24 Hours 09/02/18 09/03/18 09/04/18 23:59 23:59 23:59 Intake Total 1400 / 1400 950 / 950 600 / 600 Output Total 1775 / 1775 3550 / 3550 1275 / 1275 Balance -375 / -375 -2600 / -2600 -675 / -675 Laboratory Results 09/04/18 06:26: Sodium 137, Potassium 3.7, Chloride 96 L, Carbon Dioxide 35.0 H, Anion Gap 6, BUN 21 H, Creatinine 0.79, Estim Creat Clear Calc 63.83, Est GFR (MDRD) Af Amer 122, Est GFR (MDRD) Non-Af 101, BUN/Creatinine Ratio 26.5 H, Glucose 78, Calcium 7.8 L Current Medications Acetaminophen (Tylenol) 650 mg PO Q4H PRN PRN PRN Reason: FEVER Last Admin: 08/24/18 16:16 Dose: 650 mg Albuterol Sulfate (Ventolin Aerosols) 2.5 mg INHALATION Q2H PRN PRN PRN Reason: SHORTNESS OF BREATH Last Admin: 08/24/18 04:02 Dose: 2.5 mg Albuterol/Ipratropium (Duoneb) 3 ml INHALATION Q4H.RT [facility] Last Admin: 09/04/18 10:53 Dose: 3 ml Amlodipine Besylate (Norvasc) 10 mg PO DAILY [facility] Last Admin: 09/04/18 09:16 Dose: 10 mg Aspirin (Ecotrin) 81 mg PO DAILY@0800 [facility] Last Admin: 09/04/18 09:12 Dose: 81 mg Benzonatate (Tessalon Perle) 200 mg PO TID PRN PRN PRN Reason: COUGH Chlorhexidine Gluconate () 1 each TOPICAL DAILY [facility] Last Admin: 09/04/18 09:22 Dose: Not Given Cholecalciferol (Vitamin D) 5,000 unit PO DAILY [facility] Last Admin: 09/04/18 09:17 Dose: 5,000 unit Furosemide (Lasix) 40 mg IV BID@1000,1800 [facility] Last Admin: 09/04/18 09:18 Dose: 40 mg Guaifenesin (Mucinex) 1,200 mg PO BID [facility] Last Admin: 09/04/18 09:16 Dose: 1,200 mg Hydroxyzine Pamoate (Vistaril Pamoate Capsule) 25 mg PO QHS PRN PRN Reason: SLEEP Last Admin: 08/28/18 21:45 Dose: 25 mg Sodium Chloride () 250 mls @ 15 mls/hr IV .[id number] PRN PRN Reason: SALINE FLUSH Last Admin: 08/25/18 11:39 Dose: 15 mls/hr Ipratropium [place] (Atrovent Nasal [place] (G)) 2 spray NASAL BID [facility] Last Admin: 09/04/18 09:15 Dose: 2 spray Lactobacillus Acidophilus (Acidophilus) 1 tablet PO DAILY [facility] Last Admin: 09/04/18 09:14 Dose: 1 tablet Magnesium Hydroxide (Milk Of Magnesia) 30 ml PO DAILY PRN PRN Reason: Constipation Last Admin: 09/03/18 17:17 Dose: 30 ml Metoprolol Tartrate (Lopressor (Beta Haris)) 25 mg PO BID [facility] Last Admin: 09/04/18 09:15 Dose: 25 mg [facility]ivit[facility] ([facility]) [facility] Last Admin: 09/04/18 09:13 Dose: 1 tablet Ondansetron HCl (Zofran) 4 mg IV Q8H PRN PRN PRN Reason: NAUSEA Pantoprazole Sodium (Protonix) 20 mg PO DAILY [facility] Last Admin: 09/04/18 09:16 Dose: 20 mg Prednisone () 40 mg PO DAILY@0800 [facility] Last Admin: 09/04/18 09:13 Dose: 40 mg Rivaroxaban ([facility]to) [facility] Last Admin: 09/04/18 09:14 Dose: 15 mg Senna/Docusate Sodium (Senokot-S, Aimee-Colace) 1 tablet PO BID [facility] Last Admin: 09/04/18 09:16 Dose: 1 tablet Sodium Chloride () 5 - 30 ml IV UD PRN PRN Reason: SALINE FLUSH Last Admin: 09/04/18 09:19 Dose: 10 ml Sodium Chloride ([place] Nasal [place]) 2 spray NASAL TID PRN PRN PRN Reason: NASAL DRYNESS Last Admin: 09/02/18 06:08 Dose: 2 sprays Medical Necessity - Tobacco Use Smoking Status: Former smoker Assessment/Plan All Active Problems (Last Reviewed 08/24/18 @ 03:05 by Andrés Mane MD) Community acquired pneumonia (Acute) Hypoxemia (Acute) History of bilateral cataract extraction (Resolved) Status post trigger finger release (Resolved) History of cholecystectomy (Resolved) History of bilateral carpal tunnel release (Resolved) History of prostatectomy (Resolved) History of coronary artery bypass graft x 3 (Resolved) History of colonoscopy (Resolved) 1. Acute on chronic hypoxic respiratory failure, multifactorial in etiology, probable interstitial lung disease, bronchiectasis, presumed PE, on chronic diastolic CHF mildly improving, on 6 liters of oxygen now, on IV Lasix bronchodilators and steroids 2. Bilateral lower extremity DVT and presumed PE, on Xarelto 3. Acute on chronic diastolic CHF, on Lasix 40mg IV BID, will continue per CHF protocol. 4. CAD status post CABG, stable, on aspirin, metoprolol 5. MGUS, following outpatient with oncology 6. RA, stable 7. Hypertension, controlled, continue on amlodipine, metoprolol 8. Hyperkalemia, on oral potassium, will dc potassium, repeat blood work 9. DVT PPx- On Xarelto Code Visit Inpatient E&M: 90070 Subs Hosp L2
--- NOTE | 2018-09-04 17:21 | CASEMGMT ---
RN RUBI NOTE: Call received from Lay @ [facility]. She stated [employer] has denied pt going to [facility] and that MD can do [id number] on Friday if he still feels LTACH level of care needed. RN CM to room to talk with pt and family. They were made aware of denial. They were informed that would wait til Friday to see how pt is doing to determine discharge plan. Discussed option of SNF with them if LTACH not approved/required at that time. They voiced understanding. Questions answered. CM to continue to follow for further discharge planning needs. Cortney CHAPAN RN CM
[2018-09-05] VITALS (18 sets, daily range): BP systolic 101–122; BP diastolic 57–73; PULSE 65–102; RESP 16–24; TEMP 36.4–36.7; O2SAT 92–94
[2018-09-05 06:22] LABS: Hematocrit 43.7 % (40-54); Hemoglobin 14.5 g/dl (13.0-16.5); Mean Corp Hgb Conc 33.2 g/gl (32-36); Mean Corpuscular Hgb 29.8 pg (27.0-32.0); Mean Corpuscular Volume 89.9 fL (80-94); Mean Platelet Vol. 9.9 fl (6.2-12.0); Platelet Count 241 K/mm3 (150-450); RBC Distribution Width CV 13.5 % (11.6-14.6); RBC Distribution Width SD 44.3 fl (35.1-43.9); Red Blood Count 4.86 M/mm3 (4.6-6.2)
[2018-09-05 06:38] LABS: Differential Indicated MANUAL DIFF; POSITIVE COUNT YES; POSITIVE DIFFERENTIAL YES; POSITIVE MORPHOLOGY YES
[2018-09-05] MEDS: Ipratropium/Albuterol Sulfate 3 ML AMPUL.NEB INHALATION ×5 (06:40→23:06)
[2018-09-05 06:48] LABS: Eosinophil 1 % (0-5); Lymphocyte 22 % (19-41); Metamyelocyte 4 % (0-1); Neutrophil-Band 4 % (0-5); Neutrophil-Segmented 69 % (47-70); Total Cells Counted 100 (MANUAL DIFF)
[2018-09-05 06:50] LABS: Absolute Lymphocyte Count 6.16 X10^3/ul (0.83-4.51); Absolute Neutrophil Count 21.6 X10^3/uL (2.0-7.7); Lymphocyte # 6.16 X10^3/ul (4.0); Neutrophil # 21.56 X10^3/uL (2.7-7.7)
[2018-09-05 07:26] LABS: Anion Gap 8 (5-15); BUN 19 mg/dL (7-18); BUN/Creat Ratio 23.7 RATIO (10-20); Chloride 96 mmol/L (98-107); EST Glomerular Filtration Rate 100 mL/min (>60); Est Glom Filt Rate - Afr Amer 121 mL/min (>60); Estimated Creatinine Clearance 79.78 ml/min; Glucose 80 mg/dL (74-106); Potassium 3.4 mmol/L (3.5-5.1); Sodium Level 138 mmol/L (136-145)
--- NOTE | 2018-09-05 08:17 | PCM.PN.HOSP ---
Patient Problems: Active and Suspected Problems (Last Reviewed 08/24/18 @ 03:05 by Andrés Mane MD) Community acquired pneumonia (Acute) Hypoxemia (Acute) Subjective: Patient was seen and examined. No new complaints. He was weaned down to 5 L above was started in the lower 80s. Brought back to 6 L of oxygen. Still waiting on insurance precertification for discharge -denied discharge to [facility]. Case management working on discharge planning. Objective: Physical exam: General: Alert, Oriented x3, Cooperative, No apparent distress, comfortable on 6 L of oxygen HEENT: Atraumatic, PERRLA, EOMI, Normocephalic Oral: Moist Mucosa Neck: Supple, No JVD, Negative Carotid Bruits Lungs: - - Diminished at the lung bases; no wheezing. on 6L of oxygen. Cardiovascular: Regular rate, Regular Rhythm, Normal S1, Normal S2, No murmurs Abdomen: Bowel Sounds Present, Soft, Non Tender, Non-Distended, No Hepato-splenomegaly Extremities: No clubbing, No cyanosis, No edema, Capillary Refill Less than 3 Seconds Skin: No rashes, No breakdown Musculoskeletal: No Tenderness to Palpation of Joints or Extremities Lymphatic: No Cervical, Supraclavicular, or Inguinal Adenopathy Neurological: Cranial nerves II-XII grossly intact, Neuro grossly intact, Motor Exam 5/5 strength throughout Psych/Mental Status: Normal Affect, Appropriate, Alert and oriented to time, place, person, mood and affect Vitals/I&O's: Vital Signs Temp Pulse Resp BP Pulse Ox 98.0 F 80 24 H 122/73 H 94 09/05/18 03:50 09/05/18 07:09 09/05/18 06:40 09/05/18 03:50 09/05/18 03:50 Oxygen Flow Rate (L/min) 6 Oxygen Delivery Method Nasal Cannula Weight: 82.9 kg Body Mass Index (BMI) 28.9 Intake and Output for Last 24 Hours 09/03/18 09/04/18 09/05/18 23:59 23:59 23:59 Intake Total 950 / 950 750 / 750 100 / 100 Output Total 3550 / 3550 2125 / 2125 225 / 225 Balance -2600 / -2600 -1375 / -1375 -125 / -125 Laboratory Results 09/05/18 05:46: WBC 28.0 H, RBC 4.86, Hgb 14.5, Hct 43.7, MCV 89.9, MCH 29.8, MCHC 33.2, RDW 13.5, RDW Differential 44.3 H, Plt Count 241, MPV 9.9, Neut % (Auto) Not Reportable, Absolute Neuts (auto) 21.6 H, Absolute Lymphs (auto) 6.16 H, Total Counted 100, Neutrophils % (Manual) 69, Band Neutrophils % 4, Lymphocytes % (Manual) 22, Eosinophils % (Manual) 1, Metamyelocytes % 4 H, Diff Path Review February09/05/18 05:46: Sodium 138, Potassium 3.4 L, Chloride 96 L, Carbon Dioxide 34.0 H, Anion Gap 8, BUN 19 H, Creatinine 0.80, Estim Creat Clear Calc 79.78, Est GFR (MDRD) Af Amer 121, Est GFR (MDRD) Non-Af 100, BUN/Creatinine Ratio 23.7 H, Glucose 80, Calcium 8.0 L Current Medications Acetaminophen (Tylenol) 650 mg PO Q4H PRN PRN PRN Reason: FEVER Last Admin: 08/24/18 16:16 Dose: 650 mg Albuterol Sulfate (Ventolin Aerosols) 2.5 mg INHALATION Q2H PRN PRN PRN Reason: SHORTNESS OF BREATH Last Admin: 08/24/18 04:02 Dose: 2.5 mg Albuterol/Ipratropium (Duoneb) 3 ml INHALATION Q4H.RT [facility] Last Admin: 09/05/18 06:40 Dose: 3 ml Amlodipine Besylate (Norvasc) 10 mg PO DAILY [facility] Last Admin: 09/04/18 09:16 Dose: 10 mg Aspirin (Ecotrin) 81 mg PO DAILY@0800 [facility] Last Admin: 09/04/18 09:12 Dose: 81 mg Benzonatate (Tessalon Perle) 200 mg PO TID PRN PRN PRN Reason: COUGH Chlorhexidine Gluconate () 1 each TOPICAL DAILY [facility] Last Admin: 09/04/18 09:22 Dose: Not Given Cholecalciferol (Vitamin D) 5,000 unit PO DAILY [facility] Last Admin: 09/04/18 09:17 Dose: 5,000 unit Furosemide (Lasix) 40 mg IV BID@1000,1800 [facility] Last Admin: 09/04/18 17:07 Dose: 40 mg Guaifenesin (Mucinex) 1,200 mg PO BID [facility] Last Admin: 09/04/18 21:55 Dose: 1,200 mg Hydroxyzine Pamoate (Vistaril Pamoate Capsule) 25 mg PO QHS PRN PRN Reason: SLEEP Last Admin: 08/28/18 21:45 Dose: 25 mg Sodium Chloride () 250 mls @ 15 mls/hr IV .[id number] PRN PRN Reason: SALINE FLUSH Last Admin: 08/25/18 11:39 Dose: 15 mls/hr Ipratropium [place] (Atrovent Nasal [place] (G)) 2 spray NASAL BID [facility] Last Admin: 09/04/18 21:55 Dose: Not Given Lactobacillus Acidophilus (Acidophilus) 1 tablet PO DAILY [facility] Last Admin: 09/04/18 09:14 Dose: 1 tablet Magnesium Hydroxide (Milk Of Magnesia) 30 ml PO DAILY PRN PRN Reason: Constipation Last Admin: 09/03/18 17:17 Dose: 30 ml Metoprolol Tartrate (Lopressor (Beta Haris)) 25 mg PO BID [facility] Last Admin: 09/04/18 21:55 Dose: 25 mg [facility]ivit[facility] ([facility]amin) [facility] Last Admin: 09/04/18 09:13 Dose: 1 tablet Ondansetron HCl (Zofran) 4 mg IV Q8H PRN PRN PRN Reason: NAUSEA Pantoprazole Sodium (Protonix) 20 mg PO DAILY [facility] Last Admin: 09/04/18 09:16 Dose: 20 mg Prednisone () 40 mg PO DAILY@0800 [facility] Last Admin: 09/04/18 09:13 Dose: 40 mg Rivaroxaban ([facility]to) [facility] Last Admin: 09/04/18 17:04 Dose: 15 mg Senna/Docusate Sodium (Senokot-S, Aimee-Colace) 1 tablet PO BID [facility] Last Admin: 09/04/18 21:56 Dose: 1 tablet Sodium Chloride () 5 - 30 ml IV UD PRN PRN Reason: SALINE FLUSH Last Admin: 09/04/18 17:07 Dose: 10 ml Sodium Chloride ([place] Nasal [place]) 2 spray NASAL TID PRN PRN PRN Reason: NASAL DRYNESS Last Admin: 09/02/18 06:08 Dose: 2 sprays Medical Necessity - Tobacco Use Smoking Status: Former smoker Assessment/Plan All Active Problems (Last Reviewed 08/24/18 @ 03:05 by Andrés Mane MD) Community acquired pneumonia (Acute) Hypoxemia (Acute) History of bilateral cataract extraction (Resolved) Status post trigger finger release (Resolved) History of cholecystectomy (Resolved) History of bilateral carpal tunnel release (Resolved) History of prostatectomy (Resolved) History of coronary artery bypass graft x 3 (Resolved) History of colonoscopy (Resolved) 1. Acute on chronic hypoxic respiratory failure, multifactorial in etiology, probable interstitial lung disease, bronchiectasis, presumed PE, on chronic diastolic CHF mildly improving, on 6 liters of oxygen now, Will continue to keep on Lasix whilst in the hospital, continue on on IV Lasix ,bronchodilators and prednisone taper 2. Bilateral lower extremity DVT and presumed PE, on Xarelto 3. Acute on chronic diastolic CHF/cor pulmonale, on Lasix 40mg IV BID, will continue per CHF protocol. 4. CAD status post CABG, stable, on aspirin, metoprolol 5. MGUS, following outpatient with oncology 6. RA, stable 7. Hypertension, controlled, continue on amlodipine, metoprolol 8. Hypokalemia, replace potassium, recheck blood work in am 9. DVT PPx- On Xarelto Code Visit Inpatient E&M: 03789 Subs Hosp L2
--- NOTE | 2018-09-05 08:55 | PN_ITS ---
Patient Problems: Active and Suspected Problems (Last Reviewed 08/24/18 @ 03:05 by Andrés Mane MD) Community acquired pneumonia (Acute) Hypoxemia (Acute) Subjective: Patient continues to report improvement with diuresis. Patient denies any chest pain and reports exertional dyspnea is improving. Patient does state sinus con gestion continues to be an issue, but is happy supplemental oxygen is decreasing. - Physical Exam General: Alert, Oriented x3, Cooperative, No apparent distress, Well developed, Well nourished, - - Speaking in full sentences. HEENT: Atraumatic, PERRLA, EOMI, Normocephalic, - - No scleral icterus or injection noted. Oral: Moist Mucosa, No Gingival or Mucosal Lesions/ Ulcerations Neck: Supple, No JVD, No Nodes, Trachea Midline Lungs: No rhonchi, No wheeze, Diminished, Rales, - - Symmetric expansion. No dullness to percussion. Cardiovascular: Regular rate, Regular Rhythm, Normal S1, Normal S2, No murmurs, No rub noted, No Gallop Abdomen: Bowel Sounds Present, Soft, Non Tender, Non-Distended Extremities: No cyanosis, Capillary Refill Less than 3 Seconds, Edema - Trace lower extremity Skin: No rashes, No breakdown Musculoskeletal: No Tenderness to Palpation of Joints or Extremities Lymphatic: No Cervical, Supraclavicular, or Inguinal Adenopathy Neurological: Cranial nerves II-XII grossly intact, Neuro grossly intact, Motor Exam 5/5 strength throughout Psych/Mental Status: Alert and oriented to time, place, person, mood and affect Vital Signs Temp Pulse Resp BP Pulse Ox 36.7 C 80 24 H 122/73 H 94 09/05/18 03:50 09/05/18 07:09 09/05/18 06:40 09/05/18 03:50 09/05/18 03:50 Oxygen Flow Rate (L/min) 5 Oxygen Delivery Method Nasal Cannula Weight: 82.9 kg Body Mass Index (BMI) 28.9 Intake and Output for Last 24 Hours 09/03/18 09/04/18 09/05/18 23:59 23:59 23:59 Intake Total 950 / 950 750 / 750 100 / 100 Output Total 3550 / 3550 2125 / 2125 225 / 225 Balance -2600 / -2600 -1375 / -1375 -125 / -125 Laboratory Tests Past 24 Hrs 09/05/18 09/05/18 05:46 05:46 WBC 28.0 H RBC 4.86 Hgb 14.5 Hct 43.7 MCV 89.9 MCH 29.8 MCHC 33.2 RDW 13.5 RDW Differential 44.3 H Plt Count 241 MPV 9.9 Neut % (Auto) Not Reportable Absolute Neuts (auto) 21.6 H Absolute Lymphs (auto) 6.16 H Total Counted 100 Neutrophils % (Manual) 69 Band Neutrophils % 4 Lymphocytes % (Manual) 22 Eosinophils % (Manual) 1 Metamyelocytes % 4 H Diff Path Review May foll Sodium 138 Potassium 3.4 L Chloride 96 L Carbon Dioxide 34.0 H Anion Gap 8 BUN 19 H Creatinine 0.80 Estim Creat Clear Calc 79.78 Est GFR (MDRD) Af Amer 121 Est GFR (MDRD) Non-Af 100 BUN/Creatinine Ratio 23.7 H Glucose 80 Calcium 8.0 L Medical Necessity - Tobacco Use Smoking Status: Former smoker Assessment/Plan All Active Problems (Last Reviewed 08/24/18 @ 03:05 by Andrés Mane MD) Community acquired pneumonia (Acute) Hypoxemia (Acute) History of bilateral cataract extraction (Resolved) Status post trigger finger release (Resolved) History of cholecystectomy (Resolved) History of bilateral carpal tunnel release (Resolved) History of prostatectomy (Resolved) History of coronary artery bypass graft x 3 (Resolved) History of colonoscopy (Resolved) RECOMMENDATIONS: 1. Continue diuresis as tolerated. 2. Continue scheduled bronchodilators, transitioned to p.o. steroids with prolonged taper 3. Continue Xarelto therapy 4. Wean supplemental oxygen as tolerated. Goal oxygen saturation at or above 88%. 5. Encourage aggressive incentive spirometer use and mobilize patient as elevated. 6. Okay to go to ECF from my perspective IMPRESSIONS: 1. Acute hypoxic respiratory failure/underlying mixed ventilatory defect with exacerbation/bronchiectasis/presumed PE Patient currently on steroids, bronchodilators and scheduled Lasix therapy. Patient is reporting some subjective improvement following diuretic therapy. Patient also was found to have positive lower extremity Dopplers. Patient tolerating systemic anticoagulation well. Patient has been weaned to 5 L nasal cannula. However, patient desaturates quickly with any movement. Given patient's continued improvement, ECF for rehab would be appropriate. 2. Heart failure with preserved ejection fraction/pulmonary hypertension/cor pulmonale The patient's pulmonary hypertension is most likely the consequence of his underlying pulmonary process coupled with hypoxia. Continue current supportive measures as noted above. The patient will be continued on Lasix 40 mg twice daily. Goal -1-2 L of fluid balance daily. Patient's weight continues to decrease despite relatively even balances. Patient's renal function appears to be tolerating well. Continued response to diuretic therapy suggests cor pulmonale secondary to pulmonary fibrosis. Patient has not had a right heart catheterization for confirmation, but clinical improvement with diuretic therapy and lack of renal insufficiency suggest current cor pulmonale. 3. Lower extremity DVTs Lower extremity Dopplers to show DVTs. Patient appears to be tolerating Xarelto therapy well. Oxygenation is improving slightly. 4. Recently diagnosed rheumatoid arthritis and MGUS Patient was found to be positive rheumatoid factor and anti-CCP antibody. However, patient was also noted to have MGUS, so this is delayed any initiation of therapy. Patient has been consulted with the [facility] and Dr. Silva did discuss potential treatment options. Possible Imuran initiation if cleared by hematology. Patient is currently scheduled for a follow-up visit on October 12. 5. Prior history of tobacco abuse/hypertension/GERD Complicates care, management, recovery and prognosis. Continue home medications as indicated. Code Visit Inpatient E&M: 78521 Subs Hosp L3
[2018-09-05] MEDS: 0.9% NaCl Peripheral Flush Adult/Peds IV (09:53)
[2018-09-05] MEDS: Furosemide 40 MG/4 ML Vial IV (09:53)
[2018-09-05] MEDS: predniSONE 20 MG Tablet 40 MG PO (09:54)
[2018-09-05] MEDS: Metoprolol Tartrate 25 MG Tablet PO (09:54)
[2018-09-05] MEDS: amLODIPine 10 MG Tablet PO (09:54)
[2018-09-05] MEDS: Senna/Docusate Sodium 1 Tablet PO ×2 (09:54→23:09)
[2018-09-05] MEDS: Aspirin E.C. 81 MG Tablet PO (09:54)
[2018-09-05] MEDS: Multivitamins,Therapeutic Tablet 1 TABLET PO (09:54)
[2018-09-05] MEDS: Pantoprazole Sodium 20 MG Tablet PO (09:54)
[2018-09-05] MEDS: Ipratropium Bromide 0.06% NASAL SPRAY 2 SPRAY NASAL (09:55)
[2018-09-05] MEDS: guaiFENesin 1,200 MG Tablet 1200 MG PO ×2 (09:55→23:07)
[2018-09-05] MEDS: Rivaroxaban 15 MG Tablet PO ×2 (09:55→17:08)
[2018-09-05] MEDS: Metoprolol Tartrate 25 MG Tablet 12.5 MG PO (23:08)
[2018-09-06] VITALS (17 sets, daily range): BP systolic 92–120; BP diastolic 53–83; PULSE 65–91; RESP 16–20; TEMP 36.4–36.7; O2SAT 90–96
[2018-09-06] MEDS: Ipratropium/Albuterol Sulfate 3 ML AMPUL.NEB INHALATION ×4 (06:46→19:00)
--- NOTE | 2018-09-06 07:39 | PCM.PN.HOSP ---
Patient Problems: Active and Suspected Problems (Last Reviewed 08/24/18 @ 03:05 by Andrés Mane MD) Community acquired pneumonia (Acute) Hypoxemia (Acute) Subjective: Patient was seen and examined. His BP was running low last night. On reduced doses of amlodipine and Lasix. Denies chest pain, dizziness, palpitations. Objective: Physical exam: General: Alert, Oriented x3, Cooperative, No apparent distress, comfortable on 6 L of oxygen HEENT: Atraumatic, PERRLA, EOMI, Normocephalic Oral: Moist Mucosa Neck: Supple, No JVD, Negative Carotid Bruits Lungs: - - Diminished at the lung bases; no wheezing. on 6L of oxygen. Cardiovascular: Regular rate, Regular Rhythm, Normal S1, Normal S2, No murmurs Abdomen: Bowel Sounds Present, Soft, Non Tender, Non-Distended, No Hepato-splenomegaly Extremities: No clubbing, No cyanosis, No edema, Capillary Refill Less than 3 Seconds Skin: No rashes, No breakdown Musculoskeletal: No Tenderness to Palpation of Joints or Extremities Lymphatic: No Cervical, Supraclavicular, or Inguinal Adenopathy Neurological: Cranial nerves II-XII grossly intact, Neuro grossly intact, Motor Exam 5/5 strength throughout Psych/Mental Status: Normal Affect, Appropriate, Alert and oriented to time, place, person, mood and affect Vitals/I&O's: Vital Signs Temp Pulse Resp BP Pulse Ox 98.0 F 73 18 120/71 92 09/06/18 05:00 09/06/18 05:00 09/06/18 05:00 09/06/18 05:00 09/06/18 05:00 Oxygen Flow Rate (L/min) 6 Oxygen Delivery Method Nasal Cannula Weight: 82.9 kg Body Mass Index (BMI) 28.9 Intake and Output for Last 24 Hours 09/04/18 09/05/18 09/06/18 23:59 23:59 23:59 Intake Total 750 / 750 1060 / 1060 400 / 400 Output Total 2125 / 2125 1425 / 1425 1275 / 1275 Balance -1375 / -1375 -365 / -365 -875 / -875 Current Medications Acetaminophen (Tylenol) 650 mg PO Q4H PRN PRN PRN Reason: FEVER Last Admin: 08/24/18 16:16 Dose: 650 mg Albuterol Sulfate (Ventolin Aerosols) 2.5 mg INHALATION Q2H PRN PRN PRN Reason: SHORTNESS OF BREATH Last Admin: 08/24/18 04:02 Dose: 2.5 mg Albuterol/Ipratropium (Duoneb) 3 ml INHALATION Q4H.RT [facility] Last Admin: 09/06/18 06:46 Dose: 3 ml Amlodipine Besylate (Norvasc) 5 mg PO DAILY [facility] Aspirin (Ecotrin) 81 mg PO DAILY@0800 [facility] Last Admin: 09/05/18 09:54 Dose: 81 mg Benzonatate (Tessalon Perle) 200 mg PO TID PRN PRN PRN Reason: COUGH Chlorhexidine Gluconate () 1 each TOPICAL DAILY [facility] Last Admin: 09/05/18 11:21 Dose: Not Given Cholecalciferol (Vitamin D) 5,000 unit PO DAILY [facility] Last Admin: 09/05/18 09:54 Dose: 5,000 unit Furosemide (Lasix) 40 mg PO BID@1000,1800 [facility] Guaifenesin (Mucinex) 1,200 mg PO BID [facility] Last Admin: 09/05/18 23:07 Dose: 1,200 mg Hydroxyzine Pamoate (Vistaril Pamoate Capsule) 25 mg PO QHS PRN PRN Reason: SLEEP Last Admin: 08/28/18 21:45 Dose: 25 mg Sodium Chloride () 250 mls @ 15 mls/hr IV .[id number] PRN PRN Reason: SALINE FLUSH Last Admin: 08/25/18 11:39 Dose: 15 mls/hr Ipratropium [place] (Atrovent Nasal [place] (G)) 2 spray NASAL BID [facility] Last Admin: 09/05/18 23:06 Dose: Not Given Lactobacillus Acidophilus (Acidophilus) 1 tablet PO DAILY [facility] Last Admin: 09/05/18 09:55 Dose: 1 tablet Magnesium Hydroxide (Milk Of Magnesia) 30 ml PO DAILY PRN PRN Reason: Constipation Last Admin: 09/03/18 17:17 Dose: 30 ml Metoprolol Tartrate (Lopressor (Beta Haris)) 12.5 mg PO BID [facility] Last Admin: 09/05/18 23:08 Dose: 12.5 mg Multivitamins ([facility]amin) [facility] Last Admin: 09/05/18 09:54 Dose: 1 tablet Ondansetron HCl (Zofran) 4 mg IV Q8H PRN PRN PRN Reason: NAUSEA Pantoprazole Sodium (Protonix) 20 mg PO DAILY [facility] Last Admin: 09/05/18 09:54 Dose: 20 mg Potassium Chloride (K-Dur) 60 meq PO X1 ONE Stop: 09/06/18 07:34 Prednisone () 40 mg PO DAILY@0800 [facility]; Taper Stop: 09/18/18 07:59 Rivar[facility]) [facility] Last Admin: 09/05/18 17:08 Dose: 15 mg Senna/Docusate Sodium (Senokot-S, Aimee-Colace) 1 tablet PO BID [facility] Last Admin: 09/05/18 23:09 Dose: 1 tablet Sodium Chloride () 5 - 30 ml IV UD PRN PRN Reason: SALINE FLUSH Last Admin: 09/05/18 09:53 Dose: 10 ml Sodium Chloride ([place] Nasal [place]) 2 spray NASAL TID PRN PRN PRN Reason: NASAL DRYNESS Last Admin: 09/02/18 06:08 Dose: 2 sprays Medical Necessity - Tobacco Use Smoking Status: Former smoker Assessment/Plan All Active Problems (Last Reviewed 08/24/18 @ 03:05 by Andrés Mane MD) Community acquired pneumonia (Acute) Hypoxemia (Acute) History of bilateral cataract extraction (Resolved) Status post trigger finger release (Resolved) History of cholecystectomy (Resolved) History of bilateral carpal tunnel release (Resolved) History of prostatectomy (Resolved) History of coronary artery bypass graft x 3 (Resolved) History of colonoscopy (Resolved) 1. Acute on chronic hypoxic respiratory failure, multifactorial in etiology, probable interstitial lung disease, bronchiectasis, presumed PE, on chronic diastolic CHF mildly improving, on 6 liters of oxygen now, Will continue to keep on Lasix whilst in the hospital, continue on on IV Lasix ,bronchodilators and prednisone taper 2. Bilateral lower extremity DVT and presumed PE, on Xarelto 3. Acute on chronic diastolic CHF/cor pulmonale, on Lasix 40mg po bid, will continue per CHF protocol. 4. Hypokalemia, replaced, recheck in am 5. CAD status post CABG, stable, on aspirin, metoprolol 6. MGUS, following outpatient with oncology 7. RA, stable 8. Hypertension, controlled, continue on amlodipine, metoprolol 9. Hypokalemia, replace potassium, recheck blood work in am 10. DVT PPx- On Xarelto Code Visit Inpatient E&M: 43772 Subs Hosp L2
--- NOTE | 2018-09-06 08:00 | PN_ITS ---
Patient Problems: Active and Suspected Problems (Last Reviewed 08/24/18 @ 03:05 by Andrés Mane MD) Community acquired pneumonia (Acute) Hypoxemia (Acute) Subjective: The patient was seen and examined at the bedside this morning. Events from the last 24 hours have been reviewed. The patient is currently afebrile, hemodynamically stable and maintaining appropriate oxygen saturations on 6 L/min via nasal cannula. He does report interval improvement in his breathing quality. Objective: The patient's most recent lab work, culture data and imaging studies have all been personally reviewed. Previous chest CT from April 2018 revealed evidence of emphysematous changes along with subpleural reticular changes and focal areas of honeycombing. There was also evidence of traction bronchiectasis. A repeat CT chest (high-resolution) was obtained on August 24 and revealed evidence of significant reticular and groundglass changes bilaterally along with traction bronchiectasis and some subpleural honeycombing, suggestive of fibrotic lung disease. The changes noted on the patient's most recent CT chest had progressed significantly since his last imaging study in April 2018. Surface echocardiogram revealed evidence of stage I diastolic dysfunction with a pulmonary artery systolic pressure estimated to be 44 mmHg. The patient's respiratory viral panel was negative. Strep and urine Legionella antigens were negative. Blood and urine cultures have shown no growth to date. Preliminary respiratory culture appears to be normal respiratory mike. - Physical Exam General: Alert, Oriented x3, Cooperative, No apparent distress HEENT: Atraumatic, PERRLA, Normocephalic Oral: No Gingival or Mucosal Lesions/ Ulcerations Neck: Supple, No Nodes, Trachea Midline Lungs: No rhonchi, No wheeze, Diminished, Rales Cardiovascular: Regular rate, Regular Rhythm, Normal S1, Normal S2, No murmurs Abdomen: Bowel Sounds Present, Soft, Non Tender Extremities: No cyanosis, Clubbing, Edema Skin: No breakdown Musculoskeletal: No Muscle Wasting Lymphatic: No Cervical, Supraclavicular, or Inguinal Adenopathy Neurological: Cranial nerves II-XII grossly intact, Neuro grossly intact Psych/Mental Status: Alert and oriented to time, place, person, mood and affect Vital Signs Temp Pulse Resp BP Pulse Ox 36.7 C 73 18 120/71 92 09/06/18 05:00 09/06/18 05:00 09/06/18 05:00 09/06/18 05:00 09/06/18 05:00 Oxygen Flow Rate (L/min) 6 Oxygen Delivery Method Nasal Cannula Weight: 182 lb 12.211 oz Body Mass Index (BMI) 28.9 Intake and Output for Last 24 Hours 09/04/18 09/05/18 09/06/18 23:59 23:59 23:59 Intake Total 750 / 750 1060 / 1060 400 / 400 Output Total 2125 / 2125 1425 / 1425 1275 / 1275 Balance -1375 / -1375 -365 / -365 -875 / -875 Labs (Last 48 Hours) 09/05/18 09/05/18 05:46 05:46 WBC 28.0 H RBC 4.86 Hgb 14.5 Hct 43.7 MCV 89.9 MCH 29.8 MCHC 33.2 RDW 13.5 RDW Differential 44.3 H Plt Count 241 MPV 9.9 Neut % (Auto) Not Reportable Absolute Neuts (auto) 21.6 H Absolute Lymphs (auto) 6.16 H Total Counted 100 Neutrophils % (Manual) 69 Band Neutrophils % 4 Lymphocytes % (Manual) 22 Eosinophils % (Manual) 1 Metamyelocytes % 4 H Diff Path Review May foll Sodium 138 Potassium 3.4 L Chloride 96 L Carbon Dioxide 34.0 H Anion Gap 8 BUN 19 H Creatinine 0.80 Estim Creat Clear Calc 79.78 Est GFR (MDRD) Af Amer 121 Est GFR (MDRD) Non-Af 100 BUN/Creatinine Ratio 23.7 H Glucose 80 Calcium 8.0 L Clinical Impression(s) from Imaging Studies Chest X-Ray 08/24/18 01:19 IMPRESSION: Increasing right-sided airspace consolidation and left-sided airspace consolidation since previous study consistent with pneumonia. Electronically Signed: Carmencita Barron MD at 2:01 EST , Service support , Chest CT 08/24/18 11:20 IMPRESSION: Changes compatible with a progressive pulmonary fibrosis with evidence of honeycombing and bronchiectasis. This is worse in the right hemithorax. Enlarged bilateral axillary lymph nodes. Electronically Signed: Joseph Sheriff MD at 12:53 EST Tel [phone], Service support , Chest X-Ray 08/30/18 07:38 IMPRESSION: Persistent bilateral peripheral mixed interstitial and air space opacities some of which maybe chronic. Acute disease unfortunately cannot be excluded. Electronically Signed: Carmencita Barron MD at 8:23 EST , Service support , Medical Necessity - Tobacco Use Smoking Status: Former smoker Assessment/Plan All Active Problems (Last Reviewed 08/24/18 @ 03:05 by Andrés Mane MD) Community acquired pneumonia (Acute) Hypoxemia (Acute) History of bilateral cataract extraction (Resolved) Status post trigger finger release (Resolved) History of cholecystectomy (Resolved) History of bilateral carpal tunnel release (Resolved) History of prostatectomy (Resolved) History of coronary artery bypass graft x 3 (Resolved) History of colonoscopy (Resolved) RECOMMENDATIONS: 1. Continue to wean oxygen as tolerated. 2. Encourage incentive spirometer use and mobilize patient as tolerated. 3. Continue scheduled bronchodilators. 4. Continue prednisone 40 mg daily. 5. Continue Xarelto as ordered. 6. Continue gentle diuresis as tolerated. IMPRESSIONS: 1. Acute hypoxic respiratory failure/underlying mixed ventilatory defect with exacerbation/bronchiectasis Likely multifactorial in etiology. While the patient did have what appeared to be the beginning stages of an interstitial lung process in April, a high resolution chest CT obtained during this hospitalization revealed significant interval worsening in the patient's fibrotic interstitial lung disease. While I cannot discount the possibility for underlying pulmonary infectious process, the patient has known bronchiectasis which could be contributing to his current cough complaints. In addition, a surface echocardiogram did reveal evidence of diastolic dysfunction and pulmonary hypertension. My clinical concern is that the patient's evolving interstitial lung process could be the consequence of idiopathic pulmonary fibrosis versus fibrosing NSIP, given that the patient was recently identified as having rheumatoid arthritis. For now, the patient will be continued on prednisone with plans to continue him on 40 mg daily until follow-up by rheumatology. In essence, the patient either has a steroid responsive interstitial lung process or a non-steroid responsive interstitial lung process, with idiopathic pulmonary fibrosis being a non-steroid responsive lung disease. While the patient does have some overlap radiographically between potential NSIP and IPF, my concern is that he does not appear to be responding readily to steroids. If the patient's lung disease is truly related to IPF, there would be no treatment to reverse the fibrotic changes that have already taken place. 2. Heart failure with preserved ejection fraction/pulmonary hypertension The patient's pulmonary hypertension is most likely the consequence of his underlying pulmonary process coupled with hypoxia. Continue current supportive measures as noted above. The patient will be continued on Lasix as tolerated. 3. Lower extremity DVTs Given the patient's refractory hypoxia, there was concern for venous thromboembolic disease. However, the patient had a reported allergy to contrast, which precluded our ability to obtain a CTA chest. Therefore, lower extremity Dopplers were obtained, which were positive for DVTs. The patient has been placed on Xarelto accordingly. 4. Recently diagnosed rheumatoid arthritis and MGUS The patient was referred to rheumatology from the office of Dr. Hein after he was noted to have a positive rheumatoid factor and anti-CCP antibody. However, the cryolite recovery operator identified an abnormal M protein, which prompted a referral to Dr. Sol of hematology. I personally discussed the patient with Dr. 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 I do feel that it will be imperative that the patient return to the cryolite recovery operator as quickly as possible to be started on therapy for his underlying rheumatologic disease, as this could be contributing to his current lung manifestations. I did call and speak with the patient's cryolite recovery operator, Dr. Moise, at the [facility] ([phone]), who indicated that it was his intention to start the patient on a medication like Imuran, once he was cleared by hematology. We will plan to call the patient's cryolite recovery operator office once the patient has been medically stabilized for discharge to set up an expedited follow-up office visit. He is currently scheduled for a follow-up visit on October 12. 5. Prior history of tobacco abuse/hypertension/GERD Complicates care, management, recovery and prognosis. Continue home medications as indicated. This note was generated with [employer] software. It may contain incorrect words, spelling, and punctuation that were not noted in checking the note before signing. Code Visit Inpatient E&M: 55499 Subs Hosp L3
[2018-09-06] MEDS: guaiFENesin 1,200 MG Tablet 1200 MG PO ×2 (08:21→21:25)
[2018-09-06] MEDS: Rivaroxaban 15 MG Tablet PO ×2 (08:21→17:03)
[2018-09-06] MEDS: Furosemide 40 MG Tablet PO ×2 (08:21→17:03)
[2018-09-06] MEDS: Aspirin E.C. 81 MG Tablet PO (08:21)
[2018-09-06] MEDS: Senna/Docusate Sodium 1 Tablet PO ×2 (08:21→21:25)
[2018-09-06] MEDS: Metoprolol Tartrate 25 MG Tablet 12.5 MG PO ×2 (08:22→21:25)
[2018-09-06] MEDS: amLODIPine 10 MG Tablet 5 MG PO (08:22)
[2018-09-06] MEDS: predniSONE 20 MG Tablet 30 MG PO (08:23)
[2018-09-06] MEDS: Multivitamins,Therapeutic Tablet 1 TABLET PO (08:29)
[2018-09-06] MEDS: Pantoprazole Sodium 20 MG Tablet PO (08:29)
[2018-09-07] VITALS (26 sets, daily range): BP systolic 91–125; BP diastolic 60–75; PULSE 66–104; RESP 12–22; TEMP 36.4–36.7; O2SAT 85–97
[2018-09-07 06:00] LABS: Hematocrit 41.5 % (40-54); Hemoglobin 13.7 g/dl (13.0-16.5); Mean Corpuscular Hgb 29.4 pg (27.0-32.0); Mean Corpuscular Volume 89.1 fL (80-94); Platelet Count 216 K/mm3 (150-450); RBC Distribution Width CV 13.7 % (11.6-14.6); RBC Distribution Width SD 44.3 fl (35.1-43.9); Red Blood Count 4.66 M/mm3 (4.6-6.2); White Blood Count 25.8 K/mm3 (4.4-11.0)
[2018-09-07 06:19] LABS: Anion Gap 9 (5-15); BUN 14 mg/dL (7-18); BUN/Creat Ratio 20.4 RATIO (10-20); Calcium,Total 7.9 mg/dL (8.5-10.1); Chloride 99 mmol/L (98-107); Creatinine, Serum 0.69 mg/dL (0.70-1.30); EST Glomerular Filtration Rate 120 mL/min (>60); Est Glom Filt Rate - Afr Amer 145 mL/min (>60); Estimated Creatinine Clearance 63.83 ml/min; Glucose 72 mg/dL (74-106); Potassium 3.6 mmol/L (3.5-5.1); Sodium Level 139 mmol/L (136-145)
[2018-09-07 06:26] LABS: Lymphocyte 21 % (19-41); Monocyte 1 % (0-10); Neutrophil-Segmented 78 % (47-70); Total Cells Counted 100 (MANUAL DIFF)
[2018-09-07 06:27] LABS: Differential Indicated MANUAL DIFF; POSITIVE COUNT YES; POSITIVE DIFFERENTIAL YES; POSITIVE MORPHOLOGY YES
[2018-09-07 06:28] LABS: Absolute Lymphocyte Count 5.42 X10^3/ul (0.83-4.51); Absolute Neutrophil Count 20.1 X10^3/uL (2.0-7.7)
[2018-09-07] MEDS: Ipratropium/Albuterol Sulfate 3 ML AMPUL.NEB INHALATION ×6 (06:32→22:37)
[2018-09-07] MEDS: predniSONE 20 MG Tablet 30 MG PO (08:45)
[2018-09-07] MEDS: Aspirin E.C. 81 MG Tablet PO (08:45)
[2018-09-07] MEDS: Multivitamins,Therapeutic Tablet 1 TABLET PO (08:46)
[2018-09-07] MEDS: Rivaroxaban 15 MG Tablet PO ×2 (08:48→17:18)
[2018-09-07] MEDS: Furosemide 40 MG Tablet PO ×2 (08:49→17:18)
[2018-09-07] MEDS: Metoprolol Tartrate 25 MG Tablet 12.5 MG PO ×2 (08:49→22:08)
[2018-09-07] MEDS: guaiFENesin 1,200 MG Tablet 1200 MG PO ×2 (08:51→22:08)
[2018-09-07] MEDS: amLODIPine 10 MG Tablet 5 MG PO (08:52)
[2018-09-07] MEDS: Pantoprazole Sodium 20 MG Tablet PO (08:54)
[2018-09-07] MEDS: Senna/Docusate Sodium 1 Tablet PO ×2 (08:55→22:07)
[2018-09-07] MEDS: Ipratropium Bromide 0.06% NASAL SPRAY 2 SPRAY NASAL (08:56)
--- NOTE | 2018-09-07 10:35 | PN_ITS ---
Patient Problems: Active and Suspected Problems (Last Reviewed 08/24/18 @ 03:05 by Andrés Mane MD) Community acquired pneumonia (Acute) Hypoxemia (Acute) Subjective: The patient was seen and examined at the bedside this morning. Events from the last 24 hours have been reviewed. The patient is currently afebrile, hemodynamically stable and maintaining appropriate oxygen saturations on 6-7 L/min via nasal cannula. The patient was overall net -2 L yesterday. He is currently documented to be overall net -13 L for the admission. Creatinine remains stable. Objective: The patient's most recent lab work, culture data and imaging studies have all been personally reviewed. Previous chest CT from April 2018 revealed evidence of emphysematous changes along with subpleural reticular changes and focal areas of honeycombing. There was also evidence of traction bronchiectasis. A repeat CT chest (high-resolution) was obtained on August 24 and revealed evidence of significant reticular and groundglass changes bilaterally along with traction bronchiectasis and some subpleural honeycombing, suggestive of fibrotic lung disease. The changes noted on the patient's most recent CT chest had progressed significantly since his last imaging study in April 2018. Surface echocardiogram revealed evidence of stage I diastolic dysfunction with a pulmonary artery systolic pressure estimated to be 44 mmHg. The patient's respiratory viral panel was negative. Strep and urine Legionella antigens were negative. Blood and urine cultures have shown no growth to date. - Physical Exam General: Alert, Oriented x3, Cooperative, No apparent distress HEENT: Atraumatic, PERRLA, Normocephalic Oral: No Gingival or Mucosal Lesions/ Ulcerations Neck: Supple, No Nodes, Trachea Midline Lungs: No rhonchi, No wheeze, Diminished, Rales Cardiovascular: Regular rate, Regular Rhythm, Normal S1, Normal S2, No murmurs Abdomen: Bowel Sounds Present, Soft, Non Tender Extremities: No cyanosis, No edema, Clubbing Skin: No breakdown Musculoskeletal: No Tenderness to Palpation of Joints or Extremities, No Muscle Wasting Lymphatic: No Cervical, Supraclavicular, or Inguinal Adenopathy Neurological: Cranial nerves II-XII grossly intact, Neuro grossly intact Psych/Mental Status: Alert and oriented to time, place, person, mood and affect Vital Signs Temp Pulse Resp BP Pulse Ox 36.6 C 96 20 H 105/69 92 09/07/18 09:03 09/07/18 09:03 09/07/18 09:03 09/07/18 09:03 09/07/18 09:03 Oxygen Flow Rate (L/min) 7 Oxygen Delivery Method Nasal Cannula Weight: 183 lb 3.266 oz Body Mass Index (BMI) 28.9 Intake and Output for Last 24 Hours 09/05/18 09/06/18 09/07/18 23:59 23:59 23:59 Intake Total 1060 / 1060 820 / 820 600 / 600 Output Total 1425 / 1425 2775 / 2775 1325 / 1325 Balance -365 / -365 -1955 / -1955 -725 / -725 Laboratory Tests Past 24 Hrs 09/07/18 09/07/18 05:15 05:15 WBC 25.8 H RBC 4.66 Hgb 13.7 Hct 41.5 MCV 89.1 MCH 29.4 MCHC 33.0 RDW 13.7 RDW Differential 44.3 H Plt Count 216 MPV 10.0 Neut % (Auto) Not Reportable Absolute Neuts (auto) 20.1 H Absolute Lymphs (auto) 5.42 H Total Counted 100 Neutrophils % (Manual) 78 H Lymphocytes % (Manual) 21 Monocytes % (Manual) 1 Diff Path Review May foll Sodium 139 Potassium 3.6 Chloride 99 Carbon Dioxide 31.0 Anion Gap 9 BUN 14 Creatinine 0.69 L Estim Creat Clear Calc 63.83 Est GFR (MDRD) Af Amer 145 Est GFR (MDRD) Non-Af 120 BUN/Creatinine Ratio 20.4 H Glucose 72 L Calcium 7.9 L Clinical Impression(s) from Imaging Studies Chest X-Ray 08/24/18 01:19 IMPRESSION: Increasing right-sided airspace consolidation and left-sided airspace consolidation since previous study consistent with pneumonia. Electronically Signed: Carmencita Barron MD at 2:01 EST , Service support , Chest CT 08/24/18 11:20 IMPRESSION: Changes compatible with a progressive pulmonary fibrosis with evidence of honeycombing and bronchiectasis. This is worse in the right hemithorax. Enlarged bilateral axillary lymph nodes. Electronically Signed: Joseph Sheriff MD at 12:53 EST Tel [phone], Service support , Chest X-Ray 08/30/18 07:38 IMPRESSION: Persistent bilateral peripheral mixed interstitial and air space opacities some of which maybe chronic. Acute disease unfortunately cannot be excluded. Electronically Signed: Carmencita Barron MD at 8:23 EST , Service support , Medical Necessity - Tobacco Use Smoking Status: Former smoker Assessment/Plan All Active Problems (Last Reviewed 08/24/18 @ 03:05 by Andrés Mane MD) Community acquired pneumonia (Acute) Hypoxemia (Acute) History of bilateral cataract extraction (Resolved) Status post trigger finger release (Resolved) History of cholecystectomy (Resolved) History of bilateral carpal tunnel release (Resolved) History of prostatectomy (Resolved) History of coronary artery bypass graft x 3 (Resolved) History of colonoscopy (Resolved) RECOMMENDATIONS: 1. Continue to wean oxygen as tolerated. 2. Encourage incentive spirometer use and mobilize patient as tolerated. 3. Continue scheduled bronchodilators. 4. Continue prednisone 40 mg daily. 5. Continue Xarelto as ordered. 6. Continue gentle diuresis as tolerated. IMPRESSIONS: 1. Acute hypoxic respiratory failure/underlying mixed ventilatory defect with exacerbation/bronchiectasis Likely multifactorial in etiology. While the patient did have what appeared to be the beginning stages of an interstitial lung process in April, a high resolution chest CT obtained during this hospitalization revealed significant interval worsening in the patient's fibrotic interstitial lung disease. While I cannot discount the possibility for underlying pulmonary infectious process, the patient has known bronchiectasis which could be contributing to his current cough complaints. In addition, a surface echocardiogram did reveal evidence of diastolic dysfunction and pulmonary hypertension. My clinical concern is that the patient's evolving interstitial lung process could be the consequence of idiopathic pulmonary fibrosis versus fibrosing NSIP, given that the patient was recently identified as having rheumatoid arthritis. For now, the patient will be continued on prednisone with plans to continue him on 40 mg daily until follow-up by rheumatology. In essence, the patient either has a steroid responsive interstitial lung process or a non-steroid responsive interstitial lung process, with idiopathic pulmonary fibrosis being a non-steroid responsive lung disease. While the patient does have some overlap radiographically between potential NSIP and IPF, my concern is that he does not appear to be responding readily to steroids. If the patient's lung disease is truly related to IPF, there would be no treatment to reverse the fibrotic changes that have already taken place. 2. Heart failure with preserved ejection fraction/pulmonary hypertension The patient's pulmonary hypertension is most likely the consequence of his underlying pulmonary process coupled with hypoxia. Continue current supportive measures as noted above. The patient will be continued on Lasix as tolerated. 3. Lower extremity DVTs Given the patient's refractory hypoxia, there was concern for venous thromboembolic disease. However, the patient had a reported allergy to contrast, which precluded our ability to obtain a CTA chest. Therefore, lower extremity Dopplers were obtained, which were positive for DVTs. The patient has been placed on Xarelto accordingly. 4. Recently diagnosed rheumatoid arthritis and MGUS The patient was referred to rheumatology from the office of Dr. Hein after he was noted to have a positive rheumatoid factor and anti-CCP antibody. However, the customer service assistant identified an abnormal M protein, which prompted a referral to Dr. Sol of hematology. I personally discussed the patient with Dr. 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 I do feel that it will be imperative that the patient return to the customer service assistant as quickly as possible to be started on therapy for his underlying rheumatologic disease, as this could be contributing to his current lung manifestations. I did call and speak with the patient's customer service assistant, Dr. Moise, at the [facility] ([phone]), who indicated that it was his intention to start the patient on a medication like Imuran, once he was cleared by hematology. We will plan to call the patient's customer service assistant office once the patient has been medically stabilized for discharge to set up an expedited follow-up office visit. He is currently scheduled for a follow-up visit on October 12. 5. Prior history of tobacco abuse/hypertension/GERD Complicates care, management, recovery and prognosis. Continue home medications as indicated. This note was generated with [employer] software. It may contain incorrect words, spelling, and punctuation that were not noted in checking the note before signing. Code Visit Inpatient E&M: 75850 Subs Hosp L2
--- NOTE | 2018-09-07 11:38 | CASEMGMT ---
SW spoke with patient and his family as he was denied for LTACH. They said they thought Dr Hein or Ricardo would talk with insurance to get him in an LTACH. SW explained it is unlikely insurance will change their mind on approval for LTACH. SW will talk with Dr Silva. They said as far as half-way they asked about [facility] and if not there then [facility]. SW called [facility] in TCU and they would not be able to take patient until he could tolerate activity on 6 L. SW called [facility] and Elena said they have the equipment to do high flow O2. SW faxed referral to [facility]. RYAN did talk with Dr Silva and he said patient needs a facility that can give him the amount of O2 he requires. Sandra LINDSEY COLLISION WORKER
--- NOTE | 2018-09-07 12:41 | PCM.PN.HOSP ---
Patient Problems: Active and Suspected Problems (Last Reviewed 08/24/18 @ 03:05 by Andrés Mane MD) Community acquired pneumonia (Acute) Hypoxemia (Acute) Subjective: Patient is a 73-year-old gentleman with history of rheumatoid arthritis, chronic hypoxic respiratory failure who presented with worsening shortness of breath.. An assessment of acute hypoxic respiratory failure was made admitted to the intensive care unit managed on noninvasive ventilation stabilized and subsequently transferred to the progressive care unit Objective: GENERAL: Somewhat dyspneic at rest HEENT: Atraumatic; moist oral mucosa EYES; Anicteric, Normal Conjunctiva NECK; supple, normal thyroid, no distended JVD. RESPIRATORY: Diminished to auscultation bilaterally, bibasilar crackles CARDIOVASCULAR: Regular S1 S2, no audible murmurs GI: soft, non-tender, normoactive bowel sounds, : No Renal angle tenderness; EXTREMITIES: No edema, no clubbing, no cyanosis. MUSCULOSKELETAL: No Joint Tenderness; no muscle waisting NEURO: Awake; no lateralizing signs. SKIN: No Rash PSYCH; Normal affect Vitals/I&O's: Vital Signs Temp Pulse Resp BP Pulse Ox 97.8 F 100 20 H 109/67 92 09/07/18 10:53 09/07/18 11:02 09/07/18 10:55 09/07/18 10:53 09/07/18 10:53 Oxygen Flow Rate (L/min) 7 Oxygen Delivery Method Nasal Cannula Weight: 83.1 kg Body Mass Index (BMI) 28.9 Intake and Output for Last 24 Hours 09/05/18 09/06/18 09/07/18 23:59 23:59 23:59 Intake Total 1060 / 1060 820 / 820 1020 / 1020 Output Total 1425 / 1425 2775 / 2775 1475 / 1475 Balance -365 / -365 -1955 / -1955 -455 / -455 Laboratory Results 09/07/18 05:15: WBC 25.8 H, RBC 4.66, Hgb 13.7, Hct 41.5, MCV 89.1, MCH 29.4, MCHC 33.0, RDW 13.7, RDW Differential 44.3 H, Plt Count 216, MPV 10.0, Neut % (Auto) Not Reportable, Absolute Neuts (auto) 20.1 H, Absolute Lymphs (auto) 5.42 H, Total Counted 100, Neutrophils % (Manual) 78 H, Lymphocytes % (Manual) 21, Monocytes % (Manual) 1, Diff Path Review February09/07/18 05:15: Sodium 139, Potassium 3.6, Chloride 99, Carbon Dioxide 31.0, Anion Gap 9, BUN 14, Creatinine 0.69 L, Estim Creat Clear Calc 63.83, Est GFR (MDRD) Af Amer 145, Est GFR (MDRD) Non-Af 120, BUN/Creatinine Ratio 20.4 H, Glucose 72 L, Calcium 7.9 L Current Medications Acetaminophen (Tylenol) 650 mg PO Q4H PRN PRN PRN Reason: FEVER Last Admin: 08/24/18 16:16 Dose: 650 mg Albuterol Sulfate (Ventolin Aerosols) 2.5 mg INHALATION Q2H PRN PRN PRN Reason: SHORTNESS OF BREATH Last Admin: 08/24/18 04:02 Dose: 2.5 mg Albuterol/Ipratropium (Duoneb) 3 ml INHALATION Q4H.RT REPLACED BY [facility] Last Admin: 09/07/18 10:55 Dose: 3 ml Amlodipine Besylate (Norvasc) 5 mg PO DAILY REPLACED BY [facility] Last Admin: 09/07/18 08:52 Dose: 5 mg Aspirin (Ecotrin) 81 mg PO DAILY@0800 REPLACED BY [facility] Last Admin: 09/07/18 08:45 Dose: 81 mg Benzonatate (Tessalon Perle) 200 mg PO TID PRN PRN PRN Reason: COUGH Chlorhexidine Gluconate () 1 each TOPICAL DAILY REPLACED BY [facility] Last Admin: 09/07/18 08:57 Dose: Not Given Cholecalciferol (Vitamin D) 5,000 unit PO DAILY REPLACED BY [facility] Last Admin: 09/07/18 08:55 Dose: 5,000 unit Furosemide (Lasix) 40 mg PO BID@1000,1800 REPLACED BY [facility] Last Admin: 09/07/18 08:49 Dose: 40 mg Guaifenesin (Mucinex) 1,200 mg PO BID REPLACED BY [facility] Last Admin: 09/07/18 08:51 Dose: 1,200 mg Hydroxyzine Pamoate (Vistaril Pamoate Capsule) 25 mg PO QHS PRN PRN Reason: SLEEP Last Admin: 08/28/18 21:45 Dose: 25 mg Sodium Chloride () 250 mls @ 15 mls/hr IV .[id number] PRN PRN Reason: SALINE FLUSH Last Admin: 08/25/18 11:39 Dose: 15 mls/hr Ipratropium [place] (Atrovent Nasal [place] (G)) 2 spray NASAL BID REPLACED BY [facility] Last Admin: 09/07/18 08:56 Dose: 2 spray Lactobacillus Acidophilus (Acidophilus) 1 tablet PO DAILY REPLACED BY [facility] Last Admin: 09/07/18 08:48 Dose: 1 tablet Magnesium Hydroxide (Milk Of Magnesia) 30 ml PO DAILY PRN PRN Reason: Constipation Last Admin: 09/03/18 17:17 Dose: 30 ml Metoprolol Tartrate (Lopressor (Beta Haris)) 12.5 mg PO BID REPLACED BY [facility] Last Admin: 09/07/18 08:49 Dose: 12.5 mg Multivitamins ([facility]amin) [facility] Last Admin: 09/07/18 08:46 Dose: 1 tablet Ondansetron HCl (Zofran) 4 mg IV Q8H PRN PRN PRN Reason: NAUSEA Pantoprazole Sodium (Protonix) 20 mg PO DAILY REPLACED BY [facility] Last Admin: 09/07/18 08:54 Dose: 20 mg Prednisone () 40 mg PO DAILY@0800 REPLACED BY [facility]; Taper Stop: 09/18/18 07:59 Last Admin: 09/07/18 08:45 Dose: 40 mg Rivarox[facility]) [facility] Last Admin: 09/07/18 08:48 Dose: 15 mg Senna/Docusate Sodium (Senokot-S, Aimee-Colace) 1 tablet PO BID REPLACED BY [facility] Last Admin: 09/07/18 08:55 Dose: 1 tablet Sodium Chloride () 5 - 30 ml IV UD PRN PRN Reason: SALINE FLUSH Last Admin: 09/05/18 09:53 Dose: 10 ml Sodium Chloride ([place] Nasal [place]) 2 spray NASAL TID PRN PRN PRN Reason: NASAL DRYNESS Last Admin: 09/02/18 06:08 Dose: 2 sprays Medical Necessity - Tobacco Use Smoking Status: Former smoker Assessment/Plan All Active Problems (Last Reviewed 08/24/18 @ 03:05 by Andrés Mane MD) Community acquired pneumonia (Acute) Hypoxemia (Acute) History of bilateral cataract extraction (Resolved) Status post trigger finger release (Resolved) History of cholecystectomy (Resolved) History of bilateral carpal tunnel release (Resolved) History of prostatectomy (Resolved) History of coronary artery bypass graft x 3 (Resolved) History of colonoscopy (Resolved) Patient is a 73-year-old gentleman with history of rheumatoid arthritis, chronic hypoxic respiratory failure who presented with worsening shortness of breath.. An assessment of acute hypoxic respiratory failure was made admitted to the intensive care unit managed on noninvasive ventilation stabilized and subsequently transferred to the progressive care unit 1. Acute on chronic hypoxic respiratory failure multifactorial including suspected nonspecific interstitial pneumonia versus idiopathic pulmonary fibrosis. CT chest on admission demonstrated Changes compatible with a progressive pulmonary fibrosis with evidence of honeycombing and bronchiectasis. Patient managed with steroids. Consultation was placed to Dr. Silva with pulmonary medicine his notes and recommendations reviewed 2. Acute on chronic diastolic heart failure improved with Lasix 3. Chronic cor pulmonale secondary to patient underlying lung disease 5. Hypokalemia secondary to use of diuretics repleted per protocol 6. Coronary artery disease with previous CABG in the past 7. 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 Rheumatoid arthritis patient is followed by rehab nurse in [place] plan is for patient to follow-up following discharge 9. Hypertension-blood pressure controlled, home medications continued with dose adjustment as needed 10. 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 Physical deconditioning PT OT as tolerated with plans for patient to be transferred to a custodial facility once insurance precertification is obtained 12. DVT prophylaxis on Xarelto no need for additional measures Active Medications Acetaminophen (Tylenol) 650 mg PO Q4H PRN PRN PRN Reason: FEVER Last Admin: 08/24/18 16:16 Dose: 650 mg Albuterol Sulfate (Ventolin Aerosols) 2.5 mg INHALATION Q2H PRN PRN PRN Reason: SHORTNESS OF BREATH Last Admin: 08/24/18 04:02 Dose: 2.5 mg Albuterol/Ipratropium (Duoneb) 3 ml INHALATION Q4H.RT REPLACED BY [facility] Last Admin: 09/07/18 10:55 Dose: 3 ml Amlodipine Besylate (Norvasc) 5 mg PO DAILY REPLACED BY [facility] Last Admin: 09/07/18 08:52 Dose: 5 mg Aspirin (Ecotrin) 81 mg PO DAILY@0800 REPLACED BY [facility] Last Admin: 09/07/18 08:45 Dose: 81 mg Benzonatate (Tessalon Perle) 200 mg PO TID PRN PRN PRN Reason: COUGH Chlorhexidine Gluconate () 1 each TOPICAL DAILY REPLACED BY [facility] Last Admin: 09/07/18 08:57 Dose: Not Given Cholecalciferol (Vitamin D) 5,000 unit PO DAILY REPLACED BY [facility] Last Admin: 09/07/18 08:55 Dose: 5,000 unit Furosemide (Lasix) 40 mg PO BID@1000,1800 REPLACED BY [facility] Last Admin: 09/07/18 08:49 Dose: 40 mg Guaifenesin (Mucinex) 1,200 mg PO BID REPLACED BY [facility] Last Admin: 09/07/18 08:51 Dose: 1,200 mg Hydroxyzine Pamoate (Vistaril Pamoate Capsule) 25 mg PO QHS PRN PRN Reason: SLEEP Last Admin: 08/28/18 21:45 Dose: 25 mg Sodium Chloride () 250 mls @ 15 mls/hr IV .[id number] PRN PRN Reason: SALINE FLUSH Last Admin: 08/25/18 11:39 Dose: 15 mls/hr Ipratropium [place] (Atrovent Nasal [place] (G)) 2 spray NASAL BID REPLACED BY [facility] Last Admin: 09/07/18 08:56 Dose: 2 spray Lactobacillus Acidophilus (Acidophilus) 1 tablet PO DAILY REPLACED BY [facility] Last Admin: 09/07/18 08:48 Dose: 1 tablet Magnesium Hydroxide (Milk Of Magnesia) 30 ml PO DAILY PRN PRN Reason: Constipation Last Admin: 09/03/18 17:17 Dose: 30 ml Metoprolol Tartrate (Lopressor (Beta Haris)) 12.5 mg PO BID REPLACED BY [facility] Last Admin: 09/07/18 08:49 Dose: 12.5 mg Multivitamins ([facility]ivitamin) [facility] Last Admin: 09/07/18 08:46 Dose: 1 tablet Ondansetron HCl (Zofran) 4 mg IV Q8H PRN PRN PRN Reason: NAUSEA Pantoprazole Sodium (Protonix) 20 mg PO DAILY REPLACED BY [facility] Last Admin: 09/07/18 08:54 Dose: 20 mg Prednisone () 40 mg PO DAILY@0800 REPLACED BY [facility]; Taper Stop: 09/18/18 07:59 Last Admin: 09/07/18 08:45 Dose: 40 mg Rivaroxaban (Xarelto) [facility] Last Admin: 09/07/18 08:48 Dose: 15 mg Senna/Docusate Sodium (Senokot-S, Aimee-Colace) 1 tablet PO BID [facility] Last Admin: 09/07/18 08:55 Dose: 1 tablet Sodium Chloride () 5 - 30 ml IV UD PRN PRN Reason: SALINE FLUSH Last Admin: 09/05/18 09:53 Dose: 10 ml Sodium Chloride ([place] Nasal [place]) 2 spray NASAL TID PRN PRN PRN Reason: NASAL DRYNESS Last Admin: 09/02/18 06:08 Dose: 2 sprays Clinical Impression(s) from Imaging Studies Chest X-Ray 08/24/18 01:19 IMPRESSION: Increasing right-sided airspace consolidation and left-sided airspace consolidation since previous study consistent with pneumonia. Electronically Signed: Carmencita Barron MD at 2:01 EST , Service support , Chest CT 08/24/18 11:20 IMPRESSION: Changes compatible with a progressive pulmonary fibrosis with evidence of honeycombing and bronchiectasis. This is worse in the right hemithorax. Enlarged bilateral axillary lymph nodes. Electronically Signed: Joseph Sheriff MD at 12:53 EST Tel [phone], Service support , Chest X-Ray 08/30/18 07:38 IMPRESSION: Persistent bilateral peripheral mixed interstitial and air space opacities some of which maybe chronic. Acute disease unfortunately cannot be excluded. Electronically Signed: Carmencita Barron MD at 8:23 EST , Service support , Code Visit Inpatient E&M: [id number] Subs Hosp L3
--- NOTE | 2018-09-07 12:42 | CASEMGMT ---
RYAN spoke with Elena from [facility] and they are able to take patient. She will start pre-cert. She said they have a high flow oxygen concentrator on the way. SW let patient and family know that he was accepted at [facility] and we will have to wait on insurance to approve him. They asked if [facility] would transport patient to appointments. They were concerned about his appt with [facility] in [place]. SW said they would assist in arranging transport. Plan: [facility] pending per-cert. Sandra LINDSEY MAIL MACHINE OPERATOR
--- NOTE | 2018-09-07 12:44 | PN_ITS ---
Patient Problems: Active and Suspected Problems (Last Reviewed 08/24/18 @ 03:05 by Andrés Mane MD) Community acquired pneumonia (Acute) Hypoxemia (Acute) Subjective: Patient is a 73-year-old gentleman with history of rheumatoid arthritis, chronic hypoxic respiratory failure who presented with worsening shortness of breath.. An assessment of acute hypoxic respiratory failure was made admitted to the intensive care unit managed on noninvasive ventilation stabilized and subsequently transferred to the progressive care unit Objective: GENERAL: Somewhat dyspneic at rest HEENT: Atraumatic; moist oral mucosa EYES; Anicteric, Normal Conjunctiva NECK; supple, normal thyroid, no distended JVD. RESPIRATORY: Diminished to auscultation bilaterally, bibasilar crackles CARDIOVASCULAR: Regular S1 S2, no audible murmurs GI: soft, non-tender, normoactive bowel sounds, : No Renal angle tenderness; EXTREMITIES: No edema, no clubbing, no cyanosis. MUSCULOSKELETAL: No Joint Tenderness; no muscle waisting NEURO: Awake; no lateralizing signs. SKIN: No Rash PSYCH; Normal affect Vitals/I&O's: Vital Signs Temp Pulse Resp BP Pulse Ox 97.8 F 100 20 H 109/67 92 09/07/18 10:53 09/07/18 11:02 09/07/18 10:55 09/07/18 10:53 09/07/18 10:53 Oxygen Flow Rate (L/min) 7 Oxygen Delivery Method Nasal Cannula Weight: 83.1 kg Body Mass Index (BMI) 28.9 Intake and Output for Last 24 Hours 09/05/18 09/06/18 09/07/18 23:59 23:59 23:59 Intake Total 1060 / 1060 820 / 820 1020 / 1020 Output Total 1425 / 1425 2775 / 2775 1475 / 1475 Balance -365 / -365 -1955 / -1955 -455 / -455 Laboratory Results 09/07/18 05:15: WBC 25.8 H, RBC 4.66, Hgb 13.7, Hct 41.5, MCV 89.1, MCH 29.4, MCHC 33.0, RDW 13.7, RDW Differential 44.3 H, Plt Count 216, MPV 10.0, Neut % (Auto) Not Reportable, Absolute Neuts (auto) 20.1 H, Absolute Lymphs (auto) 5.42 H, Total Counted 100, Neutrophils % (Manual) 78 H, Lymphocytes % (Manual) 21, Monocytes % (Manual) 1, Diff Path Review February09/07/18 05:15: Sodium 139, Potassium 3.6, Chloride 99, Carbon Dioxide 31.0, Anion Gap 9, BUN 14, Creatinine 0.69 L, Estim Creat Clear Calc 63.83, Est GFR (MDRD) Af Amer 145, Est GFR (MDRD) Non-Af 120, BUN/Creatinine Ratio 20.4 H, Glucose 72 L, Calcium 7.9 L Current Medications Acetaminophen (Tylenol) 650 mg PO Q4H PRN PRN PRN Reason: FEVER Last Admin: 08/24/18 16:16 Dose: 650 mg Albuterol Sulfate (Ventolin Aerosols) 2.5 mg INHALATION Q2H PRN PRN PRN Reason: SHORTNESS OF BREATH Last Admin: 08/24/18 04:02 Dose: 2.5 mg Albuterol/Ipratropium (Duoneb) 3 ml INHALATION Q4H.RT [facility] Last Admin: 09/07/18 10:55 Dose: 3 ml Amlodipine Besylate (Norvasc) 5 mg PO DAILY [facility] Last Admin: 09/07/18 08:52 Dose: 5 mg Aspirin (Ecotrin) 81 mg PO DAILY@0800 [facility] Last Admin: 09/07/18 08:45 Dose: 81 mg Benzonatate (Tessalon Perle) 200 mg PO TID PRN PRN PRN Reason: COUGH Chlorhexidine Gluconate () 1 each TOPICAL DAILY [facility] Last Admin: 09/07/18 08:57 Dose: Not Given Cholecalciferol (Vitamin D) 5,000 unit PO DAILY [facility] Last Admin: 09/07/18 08:55 Dose: 5,000 unit Furosemide (Lasix) 40 mg PO BID@1000,1800 [facility] Last Admin: 09/07/18 08:49 Dose: 40 mg Guaifenesin (Mucinex) 1,200 mg PO BID [facility] Last Admin: 09/07/18 08:51 Dose: 1,200 mg Hydroxyzine Pamoate (Vistaril Pamoate Capsule) 25 mg PO QHS PRN PRN Reason: SLEEP Last Admin: 08/28/18 21:45 Dose: 25 mg Sodium Chloride () 250 mls @ 15 mls/hr IV .[id number] PRN PRN Reason: SALINE FLUSH Last Admin: 08/25/18 11:39 Dose: 15 mls/hr Ipratropium [place] (Atrovent Nasal [place] (G)) 2 spray NASAL BID [facility] Last Admin: 09/07/18 08:56 Dose: 2 spray Lactobacillus Acidophilus (Acidophilus) 1 tablet PO DAILY [facility] Last Admin: 09/07/18 08:48 Dose: 1 tablet Magnesium Hydroxide (Milk Of Magnesia) 30 ml PO DAILY PRN PRN Reason: Constipation Last Admin: 09/03/18 17:17 Dose: 30 ml Metoprolol Tartrate (Lopressor (Beta [place])) 12.5 mg PO BID [facility] Last Admin: 09/07/18 08:49 Dose: 12.5 mg Multivitamins (Multivitamin) [facility] Last Admin: 09/07/18 08:46 Dose: 1 tablet Ondansetron HCl (Zofran) 4 mg IV Q8H PRN PRN PRN Reason: NAUSEA Pantoprazole Sodium (Protonix) 20 mg PO DAILY [facility] Last Admin: 09/07/18 08:54 Dose: 20 mg Prednisone () 40 mg PO DAILY@0800 [facility]; Taper Stop: 09/18/18 07:59 Last Admin: 09/07/18 08:45 Dose: 40 mg Rivaroxaban (Xarelto) [facility] Last Admin: 09/07/18 08:48 Dose: 15 mg Senna/Docusate Sodium (Senokot-S, Aimee-Colace) 1 tablet PO BID [facility] Last Admin: 09/07/18 08:55 Dose: 1 tablet Sodium Chloride () 5 - 30 ml IV UD PRN PRN Reason: SALINE FLUSH Last Admin: 09/05/18 09:53 Dose: 10 ml Sodium Chloride ([place] Nasal [place]) 2 spray NASAL TID PRN PRN PRN Reason: NASAL DRYNESS Last Admin: 09/02/18 06:08 Dose: 2 sprays Medical Necessity - Tobacco Use Smoking Status: Former smoker Assessment/Plan All Active Problems (Last Reviewed 08/24/18 @ 03:05 by Andrés Mane MD) Community acquired pneumonia (Acute) Hypoxemia (Acute) History of bilateral cataract extraction (Resolved) Status post trigger finger release (Resolved) History of cholecystectomy (Resolved) History of bilateral carpal tunnel release (Resolved) History of prostatectomy (Resolved) History of coronary artery bypass graft x 3 (Resolved) History of colonoscopy (Resolved) Patient is a 73-year-old gentleman with history of rheumatoid arthritis, chronic hypoxic respiratory failure who presented with worsening shortness of breath.. An assessment of acute hypoxic respiratory failure was made admitted to the intensive care unit managed on noninvasive ventilation stabilized and subsequently transferred to the progressive care unit 1. Acute on chronic hypoxic respiratory failure multifactorial including suspected nonspecific interstitial pneumonia versus idiopathic pulmonary fibrosis. CT chest on admission demonstrated Changes compatible with a progressive pulmonary fibrosis with evidence of honeycombing and bronchiectasis. Patient managed with steroids. Consultation was placed to Dr. Silva with pulmonary medicine his notes and recommendations reviewed 2. Acute on chronic diastolic heart failure improved with Lasix 3. Chronic cor pulmonale secondary to patient underlying lung disease 5. Hypokalemia secondary to use of diuretics repleted per protocol 6. Coronary artery disease with previous CABG in the past 7. 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 Hypertension-blood pressure controlled, home medications continued with dose adjustment as needed 10. 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 Physical deconditioning PT OT as tolerated with plans for patient to be transferred to a snf facility once insurance precertification is obtained 12. DVT prophylaxis on Xarelto no need for additional measures Active Medications Acetaminophen (Tylenol) 650 mg PO Q4H PRN PRN PRN Reason: FEVER Last Admin: 08/24/18 16:16 Dose: 650 mg Albuterol Sulfate (Ventolin Aerosols) 2.5 mg INHALATION Q2H PRN PRN PRN Reason: SHORTNESS OF BREATH Last Admin: 08/24/18 04:02 Dose: 2.5 mg Albuterol/Ipratropium (Duoneb) 3 ml INHALATION Q4H.RT [facility] Last Admin: 09/07/18 10:55 Dose: 3 ml Amlodipine Besylate (Norvasc) 5 mg PO DAILY [facility] Last Admin: 09/07/18 08:52 Dose: 5 mg Aspirin (Ecotrin) 81 mg PO DAILY@0800 [facility] Last Admin: 09/07/18 08:45 Dose: 81 mg Benzonatate (Tessalon Perle) 200 mg PO TID PRN PRN PRN Reason: COUGH Chlorhexidine Gluconate () 1 each TOPICAL DAILY [facility] Last Admin: 09/07/18 08:57 Dose: Not Given Cholecalciferol (Vitamin D) 5,000 unit PO DAILY [facility] Last Admin: 09/07/18 08:55 Dose: 5,000 unit Furosemide (Lasix) 40 mg PO BID@1000,1800 [facility] Last Admin: 09/07/18 08:49 Dose: 40 mg Guaifenesin (Mucinex) 1,200 mg PO BID [facility] Last Admin: 09/07/18 08:51 Dose: 1,200 mg Hydroxyzine Pamoate (Vistaril Pamoate Capsule) 25 mg PO QHS PRN PRN Reason: SLEEP Last Admin: 08/28/18 21:45 Dose: 25 mg Sodium Chloride () 250 mls @ 15 mls/hr IV .[id number] PRN PRN Reason: SALINE FLUSH Last Admin: 08/25/18 11:39 Dose: 15 mls/hr Ipratropium [place] (Atrovent Nasal [place] (G)) 2 spray NASAL BID [facility] Last Admin: 09/07/18 08:56 Dose: 2 spray Lactobacillus Acidophilus (Acidophilus) 1 tablet PO DAILY [facility] Last Admin: 09/07/18 08:48 Dose: 1 tablet Magnesium Hydroxide (Milk Of Magnesia) 30 ml PO DAILY PRN PRN Reason: Constipation Last Admin: 09/03/18 17:17 Dose: 30 ml Metoprolol Tartrate (Lopressor (Beta Haris)) 12.5 mg PO BID [facility] Last Admin: 09/07/18 08:49 Dose: 12.5 mg Multivitamins (Multivitamin) [facility] Last Admin: 09/07/18 08:46 Dose: 1 tablet Ondansetron HCl (Zofran) 4 mg IV Q8H PRN PRN PRN Reason: NAUSEA Pantoprazole Sodium (Protonix) 20 mg PO DAILY [facility] Last Admin: 09/07/18 08:54 Dose: 20 mg Prednisone () 40 mg PO DAILY@0800 [facility]; Taper Stop: 09/18/18 07:59 Last Admin: 09/07/18 08:45 Dose: 40 mg Rivaroxaban (Xarelto) [facility] Last Admin: 09/07/18 08:48 Dose: 15 mg Senna/Docusate Sodium (Senokot-S, Aimee-Colace) 1 tablet PO BID [facility] Last Admin: 09/07/18 08:55 Dose: 1 tablet Sodium Chloride () 5 - 30 ml IV UD PRN PRN Reason: SALINE FLUSH Last Admin: 09/05/18 09:53 Dose: 10 ml Sodium Chloride ([place] Nasal [place]) 2 spray NASAL TID PRN PRN PRN Reason: NASAL DRYNESS Last Admin: 09/02/18 06:08 Dose: 2 sprays Clinical Impression(s) from Imaging Studies Chest X-Ray 08/24/18 01:19 IMPRESSION: Increasing right-sided airspace consolidation and left-sided airspace consolidation since previous study consistent with pneumonia. Electronically Signed: Carmencita Barron MD at 2:01 EST , Service support , Chest CT 08/24/18 11:20 IMPRESSION: Changes compatible with a progressive pulmonary fibrosis with evidence of honeycombing and bronchiectasis. This is worse in the right hemithorax. Enlarged bilateral axillary lymph nodes. Electronically Signed: Joseph Sheriff MD at 12:53 EST Tel [phone], Service support , Chest X-Ray 08/30/18 07:38 IMPRESSION: Persistent bilateral peripheral mixed interstitial and air space opacities some of which maybe chronic. Acute disease unfortunately cannot be excluded. Electronically Signed: Carmencita Barron MD at 8:23 EST , Service support , Code Visit Inpatient E&M: [id number] Subs Hosp L3
--- NOTE | 2018-09-07 14:04 | EKG12_ITS ---
Test Reason : CP Blood Pressure : / mmHG Vent. Rate : 081 BPM Atrial Rate : 081 BPM P-R Int : 146 ms QRS Dur : 096 ms QT Int : 382 ms P-R-T Axes : 033 -09 011 degrees QTc Int : 443 ms Normal sinus rhythm Inferior infarct , age undetermined, cannot be excluded Abnormal ECG Confirmed by ALEE HERNANDEZ, FRANCOIS ([id number]), managing editor ALONZO MALONEY ([id number] on 09/10/2018 2:13:01 PM Referred By: DAVID Confirmed By:FRANCOIS VICKERS MD
[2018-09-07] MEDS: Acetaminophen 325 MG Tablet 650 MG PO (14:45)
[2018-09-08] VITALS (20 sets, daily range): BP systolic 103–121; BP diastolic 68–71; PULSE 75–102; RESP 16–22; TEMP 36.4–37; O2SAT 88–95
[2018-09-08] MEDS: Ipratropium/Albuterol Sulfate 3 ML AMPUL.NEB INHALATION ×5 (06:45→22:40)
--- NOTE | 2018-09-08 06:50 | PCM.PROGNOTE ---
Patient Problems: Active and Suspected Problems (Last Reviewed 08/24/18 @ 03:05 by Andrés Mane MD) Community acquired pneumonia (Acute) Hypoxemia (Acute) Subjective: The patient was seen and examined at the bedside this morning. Events from the last 24 hours have been reviewed. The patient is currently afebrile, hemodynamically stable and maintaining appropriate oxygen saturations on 6 L/min via nasal cannula. The patient was documented to be overall net -500 mL's yesterday. He is now overall net -13.5 L for the admission. The patient is currently awaiting precertification from his insurance for disposition to [facility]. Objective: The patient's most recent lab work, culture data and imaging studies have all been personally reviewed. Previous chest CT from April 2018 revealed evidence of emphysematous changes along with subpleural reticular changes and focal areas of honeycombing. There was also evidence of traction bronchiectasis. A repeat CT chest (high-resolution) was obtained on August 24 and revealed evidence of significant reticular and groundglass changes bilaterally along with traction bronchiectasis and some subpleural honeycombing, suggestive of fibrotic lung disease. The changes noted on the patient's most recent CT chest had progressed significantly since his last imaging study in April 2018. Surface echocardiogram revealed evidence of stage I diastolic dysfunction with a pulmonary artery systolic pressure estimated to be 44 mmHg. The patient's respiratory viral panel was negative. Strep and urine Legionella antigens were negative. Blood and urine cultures have shown no growth to date. - Physical Exam General: Alert, Cooperative HEENT: Atraumatic, PERRLA, Normocephalic Oral: No Gingival or Mucosal Lesions/ Ulcerations Neck: Supple, No Nodes, Trachea Midline Lungs: No rhonchi, No wheeze, Diminished, Rales Cardiovascular: Regular rate, Regular Rhythm, Normal S1, Normal S2, No murmurs Abdomen: Bowel Sounds Present, Soft, Non Tender, Non-Distended Extremities: No cyanosis, No edema, Clubbing Skin: - - No significant change from previous. Musculoskeletal: No Tenderness to Palpation of Joints or Extremities Lymphatic: No Cervical, Supraclavicular, or Inguinal Adenopathy Neurological: Cranial nerves II-XII grossly intact, Neuro grossly intact Psych/Mental Status: Alert and oriented to time, place, person, mood and affect Vital Signs Temp Pulse Resp BP Pulse Ox 36.6 C 74 18 121/70 H 94 09/08/18 05:24 09/08/18 06:45 09/08/18 06:45 09/08/18 05:24 09/08/18 06:45 Oxygen Flow Rate (L/min) 6 Oxygen Delivery Method Nasal Cannula Weight: 182 lb 8.684 oz Body Mass Index (BMI) 28.9 Intake and Output for Last 24 Hours 09/06/18 09/07/18 09/08/18 23:59 23:59 23:59 Intake Total 820 / 820 1660 / 1660 320 / 320 Output Total 2775 / 2775 2150 / 2150 890 / 890 Balance -1955 / -1955 -490 / -490 -570 / -570 Laboratory Tests Past 24 Hrs 09/07/18 14:32 Troponin I < 0.015 Labs (Last 48 Hours) 09/07/18 09/07/18 09/07/18 05:15 05:15 14:32 WBC 25.8 H RBC 4.66 Hgb 13.7 Hct 41.5 MCV 89.1 MCH 29.4 MCHC 33.0 RDW 13.7 RDW Differential 44.3 H Plt Count 216 MPV 10.0 Neut % (Auto) Not Reportable Absolute Neuts (auto) 20.1 H Absolute Lymphs (auto) 5.42 H Total Counted 100 Neutrophils % (Manual) 78 H Lymphocytes % (Manual) 21 Monocytes % (Manual) 1 Diff Path Review February Sodium 139 Potassium 3.6 Chloride 99 Carbon Dioxide 31.0 Anion Gap 9 BUN 14 Creatinine 0.69 L Estim Creat Clear Calc 63.83 Est GFR (MDRD) Af Amer 145 Est GFR (MDRD) Non-Af 120 BUN/Creatinine Ratio 20.4 H Glucose 72 L Calcium 7.9 L Troponin I < 0.015 Clinical Impression(s) from Imaging Studies Chest X-Ray 08/24/18 01:19 IMPRESSION: Increasing right-sided airspace consolidation and left-sided airspace consolidation since previous study consistent with pneumonia. Electronically Signed: Carmencita Barron MD at 2:01 EST , Service support , Chest CT 08/24/18 11:20 IMPRESSION: Changes compatible with a progressive pulmonary fibrosis with evidence of honeycombing and bronchiectasis. This is worse in the right hemithorax. Enlarged bilateral axillary lymph nodes. Electronically Signed: Joseph Sheriff MD at 12:53 EST Tel [phone], Service support , Chest X-Ray 08/30/18 07:38 IMPRESSION: Persistent bilateral peripheral mixed interstitial and air space opacities some of which maybe chronic. Acute disease unfortunately cannot be excluded. Electronically Signed: Carmencita Barron MD at 8:23 EST , Service support , Medical Necessity - Tobacco Use Smoking Status: Former smoker Assessment/Plan All Active Problems (Last Reviewed 08/24/18 @ 03:05 by Andrés Mane MD) Community acquired pneumonia (Acute) Hypoxemia (Acute) History of bilateral cataract extraction (Resolved) Status post trigger finger release (Resolved) History of cholecystectomy (Resolved) History of bilateral carpal tunnel release (Resolved) History of prostatectomy (Resolved) History of coronary artery bypass graft x 3 (Resolved) History of colonoscopy (Resolved) RECOMMENDATIONS: 1. Continue to wean oxygen as tolerated. 2. Encourage incentive spirometer use and mobilize patient as tolerated. 3. Continue scheduled bronchodilators. 4. Continue prednisone 40 mg daily. 5. Continue Xarelto as ordered. 6. Continue gentle diuresis as tolerated. 7. Awaiting insurance precertification for disposition. IMPRESSIONS: 1. Acute hypoxic respiratory failure/underlying mixed ventilatory defect with exacerbation/bronchiectasis Likely multifactorial in etiology. While the patient did have what appeared to be the beginning stages of an interstitial lung process in April, a high resolution chest CT obtained during this hospitalization revealed significant interval worsening in the patient's fibrotic interstitial lung disease. While I cannot discount the possibility for underlying pulmonary infectious process, the patient has known bronchiectasis which could be contributing to his current cough complaints. In addition, a surface echocardiogram did reveal evidence of diastolic dysfunction and pulmonary hypertension. My clinical concern is that the patient's evolving interstitial lung process could be the consequence of idiopathic pulmonary fibrosis versus fibrosing NSIP, given that the patient was recently identified as having rheumatoid arthritis. For now, the patient will be continued on prednisone with plans to continue him on 40 mg daily until follow-up by rheumatology. In essence, the patient either has a steroid responsive interstitial lung process or a non-steroid responsive interstitial lung process, with idiopathic pulmonary fibrosis being a non-steroid responsive lung disease. While the patient does have some overlap radiographically between potential NSIP and IPF, my concern is that he does not appear to be responding readily to steroids. If the patient's lung disease is truly related to IPF, there would be no treatment to reverse the fibrotic changes that have already taken place. 2. Heart failure with preserved ejection fraction/pulmonary hypertension The patient's pulmonary hypertension is most likely the consequence of his underlying pulmonary process coupled with hypoxia. Continue current supportive measures as noted above. The patient will be continued on Lasix as tolerated. 3. Lower extremity DVTs Given the patient's refractory hypoxia, there was concern for venous thromboembolic disease. However, the patient had a reported allergy to contrast, which precluded our ability to obtain a CTA chest. Therefore, lower extremity Dopplers were obtained, which were positive for DVTs. The patient has been placed on Xarelto accordingly. 4. Recently diagnosed rheumatoid arthritis and MGUS The patient was referred to rheumatology from the office of Dr. Hein after he was noted to have a positive rheumatoid factor and anti-CCP antibody. However, the cane furniture maker identified an abnormal M protein, which prompted a referral to Dr. Sol of hematology. I personally discussed the patient with Dr. 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 I do feel that it will be imperative that the patient return to the cane furniture maker as quickly as possible to be started on therapy for his underlying rheumatologic disease, as this could be contributing to his current lung manifestations. I did call and speak with the patient's cane furniture maker, Dr. Moise, at the [facility] ([phone]), who indicated that it was his intention to start the patient on a medication like Imuran, once he was cleared by hematology. We will plan to call the patient's cane furniture maker office once the patient has been medically stabilized for discharge to set up an expedited follow-up office visit. He is currently scheduled for a follow-up visit on October 12. 5. Prior history of tobacco abuse/hypertension/GERD Complicates care, management, recovery and prognosis. Continue home medications as indicated. This note was generated with [employer] dictation software. It may contain incorrect words, spelling, and punctuation that were not noted in checking the note before signing. Code Visit Inpatient E&M: 11766 Subs Hosp L2
[2018-09-08 07:32] LABS: Anion Gap 7 (5-15); BUN 13 mg/dL (7-18); BUN/Creat Ratio 20.5 RATIO (10-20); Calcium,Total 8.2 mg/dL (8.5-10.1); Chloride 100 mmol/L (98-107); Creatinine, Serum 0.64 mg/dL (0.70-1.30); EST Glomerular Filtration Rate 131 mL/min (>60); Est Glom Filt Rate - Afr Amer 158 mL/min (>60); Estimated Creatinine Clearance 63.83 ml/min; Glucose 75 mg/dL (74-106); Potassium 3.6 mmol/L (3.5-5.1); Sodium Level 139 mmol/L (136-145)
[2018-09-08] MEDS: Aspirin E.C. 81 MG Tablet PO (09:40)
[2018-09-08] MEDS: predniSONE 20 MG Tablet 30 MG PO (09:40)
[2018-09-08] MEDS: Multivitamins,Therapeutic Tablet 1 TABLET PO (09:40)
[2018-09-08] MEDS: Furosemide 40 MG Tablet PO ×2 (09:41→18:06)
[2018-09-08] MEDS: Rivaroxaban 15 MG Tablet PO ×2 (09:41→18:06)
[2018-09-08] MEDS: Metoprolol Tartrate 25 MG Tablet 12.5 MG PO ×2 (09:42→22:01)
[2018-09-08] MEDS: Senna/Docusate Sodium 1 Tablet PO ×2 (09:42→22:01)
[2018-09-08] MEDS: amLODIPine 10 MG Tablet 5 MG PO (09:42)
[2018-09-08] MEDS: guaiFENesin 1,200 MG Tablet 1200 MG PO ×2 (09:43→22:01)
[2018-09-08] MEDS: Acetaminophen 325 MG Tablet 650 MG PO (09:44)
[2018-09-08] MEDS: Ipratropium Bromide 0.06% NASAL SPRAY 2 SPRAY NASAL ×2 (09:44→22:03)
[2018-09-08] MEDS: Pantoprazole Sodium 20 MG Tablet PO (09:47)
--- NOTE | 2018-09-08 09:50 | PN_ITS ---
Patient Problems: Active and Suspected Problems (Last Reviewed 08/24/18 @ 03:05 by Andrés Mane MD) Community acquired pneumonia (Acute) Hypoxemia (Acute) Subjective: Patient seen still remains significantly dyspneic at rest. Awaiting insurance precertification prior to transfer to a snf facility Objective: GENERAL: Somewhat dyspneic at rest HEENT: Atraumatic; moist oral mucosa EYES; Anicteric, Normal Conjunctiva NECK; supple, normal thyroid, no distended JVD. RESPIRATORY: Diminished to auscultation bilaterally, bibasilar crackles CARDIOVASCULAR: Regular S1 S2, no audible murmurs GI: soft, non-tender, normoactive bowel sounds, : No Renal angle tenderness; EXTREMITIES: No edema, no clubbing, no cyanosis. MUSCULOSKELETAL: No Joint Tenderness; no muscle waisting NEURO: Awake; no lateralizing signs. SKIN: No Rash PSYCH; Normal affect Vitals/I&O's: Vital Signs Temp Pulse Resp BP Pulse Ox 98.5 F 102 H 18 117/71 94 09/08/18 09:27 09/08/18 09:27 09/08/18 09:27 09/08/18 09:27 09/08/18 09:27 Oxygen Flow Rate (L/min) 6 Oxygen Delivery Method Nasal Cannula Weight: 82.8 kg Body Mass Index (BMI) 28.9 Intake and Output for Last 24 Hours 09/06/18 09/07/18 09/08/18 23:59 23:59 23:59 Intake Total 820 / 820 1660 / 1660 320 / 320 Output Total 2775 / 2775 2150 / 2150 890 / 890 Balance -1955 / -1955 -490 / -490 -570 / -570 Laboratory Results 09/07/18 14:32: Troponin I < 0.015 09/08/18 07:00: Sodium 139, Potassium 3.6, Chloride 100, Carbon Dioxide 32.0, Anion Gap 7, BUN 13, Creatinine 0.64 L, Estim Creat Clear Calc 63.83, Est GFR (MDRD) Af Amer 158, Est GFR (MDRD) Non-Af 131, BUN/Creatinine Ratio 20.5 H, Glucose 75, Calcium 8.2 L Current Medications Acetaminophen (Tylenol) 650 mg PO Q4H PRN PRN PRN Reason: FEVER Last Admin: 09/07/18 14:45 Dose: 650 mg Albuterol Sulfate (Ventolin Aerosols) 2.5 mg INHALATION Q2H PRN PRN PRN Reason: SHORTNESS OF BREATH Last Admin: 08/24/18 04:02 Dose: 2.5 mg Albuterol/Ipratropium (Duoneb) 3 ml INHALATION Q4H.RT [facility] Last Admin: 09/08/18 06:45 Dose: 3 ml Amlodipine Besylate (Norvasc) 5 mg PO DAILY [facility] Last Admin: 09/07/18 08:52 Dose: 5 mg Aspirin (Ecotrin) 81 mg PO DAILY@0800 [facility] Last Admin: 09/07/18 08:45 Dose: 81 mg Benzonatate (Tessalon Perle) 200 mg PO TID PRN PRN PRN Reason: COUGH Chlorhexidine Gluconate () 1 each TOPICAL DAILY [facility] Last Admin: 09/07/18 08:57 Dose: Not Given Cholecalciferol (Vitamin D) 5,000 unit PO DAILY [facility] Last Admin: 09/07/18 08:55 Dose: 5,000 unit Furosemide (Lasix) 40 mg PO BID@1000,1800 [facility] Last Admin: 09/07/18 17:18 Dose: 40 mg Guaifenesin (Mucinex) 1,200 mg PO BID [facility] Last Admin: 09/07/18 22:08 Dose: 1,200 mg Hydroxyzine Pamoate (Vistaril Pamoate Capsule) 25 mg PO QHS PRN PRN Reason: SLEEP Last Admin: 08/28/18 21:45 Dose: 25 mg Sodium Chloride () 250 mls @ 15 mls/hr IV .[id number] PRN PRN Reason: SALINE FLUSH Last Admin: 08/25/18 11:39 Dose: 15 mls/hr Ipratropium [place] (Atrovent Nasal [place] (G)) 2 spray NASAL BID [facility] Last Admin: 09/07/18 22:08 Dose: Not Given Lactobacillus Acidophilus (Acidophilus) 1 tablet PO DAILY [facility] Last Admin: 09/07/18 08:48 Dose: 1 tablet Magnesium Hydroxide (Milk Of Magnesia) 30 ml PO DAILY PRN PRN Reason: Constipation Last Admin: 09/03/18 17:17 Dose: 30 ml Metoprolol Tartrate (Lopressor (Beta Haris)) 12.5 mg PO BID [facility] Last Admin: 09/07/18 22:08 Dose: 12.5 mg Morphine Sulfate () 2 mg IV Q3H PRN PRN PRN Reason: SEVERE PAIN (6-10/10) [facility]ivit[facility] ([facility]itamin) [facility] Last Admin: 09/07/18 08:46 Dose: 1 tablet Nitroglycerin (Nitrostat) 0.4 mg SUBLINGUAL Q5M PRN PRN Reason: CARDIAC/CHEST PAIN Last Admin: 09/07/18 14:30 Dose: 0.4 mg Ondansetron HCl (Zofran) 4 mg IV Q8H PRN PRN PRN Reason: NAUSEA Pantoprazole Sodium (Protonix) 20 mg PO DAILY [facility] Last Admin: 09/07/18 08:54 Dose: 20 mg Prednisone () 40 mg PO DAILY@0800 [facility]; Taper Stop: 09/18/18 07:59 Last Admin: 09/07/18 08:45 Dose: 40 mg Rivaroxaban ([facility]arelto) [facility] Last Admin: 09/07/18 17:18 Dose: 15 mg Senna/Docusate Sodium (Senokot-S, Aimee-Colace) 1 tablet PO BID [facility] Last Admin: 09/07/18 22:07 Dose: 1 tablet Sodium Chloride () 5 - 30 ml IV UD PRN PRN Reason: SALINE FLUSH Last Admin: 09/05/18 09:53 Dose: 10 ml Sodium Chloride (Hypericum Nasal [place]) 2 spray NASAL TID PRN PRN PRN Reason: NASAL DRYNESS Last Admin: 09/02/18 06:08 Dose: 2 sprays Medical Necessity - Tobacco Use Smoking Status: Former smoker Assessment/Plan All Active Problems (Last Reviewed 08/24/18 @ 03:05 by Andrés Mane MD) Community acquired pneumonia (Acute) Hypoxemia (Acute) History of bilateral cataract extraction (Resolved) Status post trigger finger release (Resolved) History of cholecystectomy (Resolved) History of bilateral carpal tunnel release (Resolved) History of prostatectomy (Resolved) History of coronary artery bypass graft x 3 (Resolved) History of colonoscopy (Resolved) Patient is a 73-year-old gentleman with history of rheumatoid arthritis, chronic hypoxic respiratory failure who presented with worsening shortness of breath.. An assessment of acute hypoxic respiratory failure was made admitted to the intensive care unit managed on noninvasive ventilation stabilized and subsequently transferred to the progressive care unit 1. Acute on chronic hypoxic respiratory failure multifactorial including suspected nonspecific interstitial pneumonia versus idiopathic pulmonary fibrosis. CT chest on admission demonstrated Changes compatible with a progressive pulmonary fibrosis with evidence of honeycombing and bronchiectasis. Patient managed with steroids. Consultation was placed to Dr. Silva with pulmonary medicine his notes and recommendations reviewed. Patient breathing still remains labored. Plan is for patient to be discharged to snf facility once insurance approval is obtained. 2. Acute on chronic diastolic heart failure improved with Lasix 3. Chronic cor pulmonale secondary to patient underlying lung disease 5. Hypokalemia secondary to use of diuretics repleted per protocol 6. Coronary artery disease with previous CABG in the past 7. 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 Rheumatoid arthritis patient is followed by chain maker hand in [place] plan is for patient to follow-up following discharge 9. Hypertension-blood pressure controlled, home medications continued with dose adjustment as needed 10. 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 Physical deconditioning PT OT as tolerated with plans for patient to be transferred to a snf facility once insurance precertification is obtained 12. DVT prophylaxis on Xarelto no need for additional measures Code Visit Inpatient E&M: 12838 Subs Hosp L2
[2018-09-08 14:40] LABS: Pathologist Review Reviewed
[2018-09-08 15:00] LABS: Pathologist Review Reviewed
--- NOTE | 2018-09-08 20:22 | NURSING ---
the patient is requesting to have all four bed rails up.
[2018-09-08] MEDS: Magnesium Hydroxide 30 ML UDC PO (22:01)
[2018-09-09] VITALS (18 sets, daily range): BP systolic 108–133; BP diastolic 65–80; PULSE 66–103; RESP 16–24; TEMP 36.6–36.8; O2SAT 90–94
[2018-09-09] MEDS: Ipratropium/Albuterol Sulfate 3 ML AMPUL.NEB INHALATION ×5 (06:46→22:44)
[2018-09-09] MEDS: Ipratropium Bromide 0.06% NASAL SPRAY 2 SPRAY NASAL ×2 (09:15→21:55)
[2018-09-09] MEDS: Rivaroxaban 15 MG Tablet PO ×2 (09:16→17:21)
[2018-09-09] MEDS: Aspirin E.C. 81 MG Tablet PO (09:16)
[2018-09-09] MEDS: Multivitamins,Therapeutic Tablet 1 TABLET PO (09:16)
[2018-09-09] MEDS: guaiFENesin 1,200 MG Tablet 1200 MG PO ×2 (09:16→21:56)
[2018-09-09] MEDS: Senna/Docusate Sodium 1 Tablet PO ×2 (09:16→21:56)
[2018-09-09] MEDS: Furosemide 40 MG Tablet PO ×2 (09:16→17:21)
[2018-09-09] MEDS: Pantoprazole Sodium 20 MG Tablet PO (09:16)
[2018-09-09] MEDS: predniSONE 20 MG Tablet 30 MG PO (09:17)
--- NOTE | 2018-09-09 09:32 | PN_ITS ---
Patient Problems: Active and Suspected Problems (Last Reviewed 08/24/18 @ 03:05 by Andrés Mane MD) Community acquired pneumonia (Acute) Hypoxemia (Acute) Subjective: The patient was seen and examined at the bedside this morning. Events from the last 24 hours have been reviewed. The patient is currently afebrile, hemodynamically stable and maintaining appropriate oxygen saturations on 6 L/min via nasal cannula. The patient was overall net -780 mL's yesterday. He is now greater than 14 L negative for the admission. The patient is still awaiting precertification from his insurance company for disposition to custodial facility. Objective: The patient's most recent lab work, culture data and imaging studies have all been personally reviewed. Previous chest CT from April 2018 revealed evidence of emphysematous changes along with subpleural reticular changes and focal areas of honeycombing. There was also evidence of traction bronchiectasis. A repeat CT chest (high-resolution) was obtained on August 24 and revealed evidence of significant reticular and groundglass changes bilaterally along with traction bronchiectasis and some subpleural honeycombing, suggestive of fibrotic lung disease. The changes noted on the patient's most recent CT chest had progressed significantly since his last imaging study in April 2018. Surface echocardiogram revealed evidence of stage I diastolic dysfunction with a pulmonary artery systolic pressure estimated to be 44 mmHg. The patient's respiratory viral panel was negative. Strep and urine Legionella antigens were negative. Blood and urine cultures have shown no growth to date. - Physical Exam General: Alert, Oriented x3, Cooperative, No apparent distress, - - Sitting in bedside recliner. HEENT: Atraumatic, PERRLA, Normocephalic Oral: Moist Mucosa, No Gingival or Mucosal Lesions/ Ulcerations Neck: Supple, No Nodes, Trachea Midline Lungs: No rhonchi, No wheeze, Diminished, Rales Cardiovascular: Regular rate, Regular Rhythm, Normal S1, Normal S2, No murmurs Abdomen: Bowel Sounds Present, Soft, Non Tender, Non-Distended Extremities: No cyanosis, No edema, Clubbing Skin: No breakdown Musculoskeletal: No Tenderness to Palpation of Joints or Extremities, No Muscle Wasting Lymphatic: No Cervical, Supraclavicular, or Inguinal Adenopathy Neurological: Cranial nerves II-XII grossly intact, Neuro grossly intact Psych/Mental Status: Alert and oriented to time, place, person, mood and affect Vital Signs Temp Pulse Resp BP Pulse Ox 36.7 C 90 16 108/65 92 09/09/18 09:20 09/09/18 09:23 09/09/18 09:20 09/09/18 09:23 09/09/18 09:20 Oxygen Flow Rate (L/min) [ 15 AMBULATION with Oxygen] Oxygen Flow Rate (L/min) 6 Oxygen Delivery Method Nasal Cannula Weight: 183 lb 10.321 oz Body Mass Index (BMI) 28.9 Intake and Output for Last 24 Hours 09/07/18 09/08/18 09/09/18 23:59 23:59 23:59 Intake Total 1660 / 1660 1560 / 1560 200 / 200 Output Total 2150 / 2150 2340 / 2340 725 / 725 Balance -490 / -490 -780 / -780 -525 / -525 Laboratory Tests Past 24 Hrs 09/05/18 09/07/18 05:46 05:15 Diff Path Review Reviewed Reviewed Labs (Last 48 Hours) 09/05/18 09/07/18 09/07/18 05:46 05:15 14:32 Diff Path Review Reviewed Reviewed Sodium Potassium Chloride Carbon Dioxide Anion Gap BUN Creatinine Estim Creat Clear Calc Est GFR (MDRD) Af Amer Est GFR (MDRD) Non-Af BUN/Creatinine Ratio Glucose Calcium Troponin I < 0.015 09/08/18 07:00 Diff Path Review Sodium 139 Potassium 3.6 Chloride 100 Carbon Dioxide 32.0 Anion Gap 7 BUN 13 Creatinine 0.64 L Estim Creat Clear Calc 63.83 Est GFR (MDRD) Af Amer 158 Est GFR (MDRD) Non-Af 131 BUN/Creatinine Ratio 20.5 H Glucose 75 Calcium 8.2 L Troponin I Clinical Impression(s) from Imaging Studies Chest X-Ray 08/24/18 01:19 IMPRESSION: Increasing right-sided airspace consolidation and left-sided airspace consolidation since previous study consistent with pneumonia. Electronically Signed: Carmencita Barron MD at 2:01 EST , Service support , Chest CT 08/24/18 11:20 IMPRESSION: Changes compatible with a progressive pulmonary fibrosis with evidence of honeycombing and bronchiectasis. This is worse in the right hemithorax. Enlarged bilateral axillary lymph nodes. Electronically Signed: Joseph Sheriff MD at 12:53 EST Tel [phone], Service support , Chest X-Ray 08/30/18 07:38 IMPRESSION: Persistent bilateral peripheral mixed interstitial and air space opacities some of which maybe chronic. Acute disease unfortunately cannot be excluded. Electronically Signed: Carmencita Barron MD at 8:23 EST , Service support , Medical Necessity - Tobacco Use Smoking Status: Former smoker Assessment/Plan All Active Problems (Last Reviewed 08/24/18 @ 03:05 by Andrés Mane MD) Community acquired pneumonia (Acute) Hypoxemia (Acute) History of bilateral cataract extraction (Resolved) Status post trigger finger release (Resolved) History of cholecystectomy (Resolved) History of bilateral carpal tunnel release (Resolved) History of prostatectomy (Resolved) History of coronary artery bypass graft x 3 (Resolved) History of colonoscopy (Resolved) RECOMMENDATIONS: 1. Continue to wean oxygen as tolerated. 2. Encourage incentive spirometer use and mobilize patient as tolerated. 3. Continue scheduled bronchodilators. 4. Continue prednisone 40 mg daily. 5. Continue Xarelto as ordered. 6. Continue gentle diuresis as tolerated. 7. Awaiting insurance precertification for disposition. IMPRESSIONS: 1. Acute hypoxic respiratory failure/underlying mixed ventilatory defect with exacerbation/bronchiectasis Likely multifactorial in etiology. While the patient did have what appeared to be the beginning stages of an interstitial lung process in April, a high resolution chest CT obtained during this hospitalization revealed significant interval worsening in the patient's fibrotic interstitial lung disease. While I cannot discount the possibility for underlying pulmonary infectious process, the patient has known bronchiectasis which could be contributing to his current cough complaints. In addition, a surface echocardiogram did reveal evidence of diastolic dysfunction and pulmonary hypertension. My clinical concern is that the patient's evolving interstitial lung process could be the consequence of idiopathic pulmonary fibrosis versus fibrosing NSIP, given that the patient was recently identified as having rheumatoid arthritis. For now, the patient will be continued on prednisone with plans to continue him on 40 mg daily until follow-up by rheumatology. In essence, the patient either has a steroid responsive interstitial lung process or a non-steroid responsive interstitial lung process, with idiopathic pulmonary fibrosis being a non-steroid responsive lung disease. While the patient does have some overlap radiographically between potential NSIP and IPF, my concern is that he does not appear to be responding readily to steroids. If the patient's lung disease is truly related to IPF, there would be no treatment to reverse the fibrotic changes that have already taken place. 2. Heart failure with preserved ejection fraction/pulmonary hypertension The patient's pulmonary hypertension is most likely the consequence of his underlying pulmonary process coupled with hypoxia. Continue current supportive measures as noted above. The patient will be continued on Lasix as tolerated. 3. Lower extremity DVTs Given the patient's refractory hypoxia, there was concern for venous thromboembolic disease. However, the patient had a reported allergy to contrast, which precluded our ability to obtain a CTA chest. Therefore, lower extremity Dopplers were obtained, which were positive for DVTs. The patient has been placed on Xarelto accordingly. 4. Recently diagnosed rheumatoid arthritis and MGUS The patient was referred to rheumatology from the office of Dr. Hein after he was noted to have a positive rheumatoid factor and anti-CCP antibody. However, the jail guard identified an abnormal M protein, which prompted a referral to Dr. Sol of hematology. I personally discussed the patient with Dr. 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 I do feel that it will be imperative that the patient return to the jail guard as quickly as possible to be started on therapy for his underlying rheumatologic disease, as this could be contributing to his current lung manifestations. I did call and speak with the patient's jail guard, Dr. Moise, at the [facility] ([phone]), who indicated that it was his intention to start the patient on a medication like Imuran, once he was cleared by hematology. We will plan to call the patient's jail guard office once the patient has been medically stabilized for discharge to set up an expedited follow-up office visit. He is currently scheduled for a follow-up visit on October 12. 5. Prior history of tobacco abuse/hypertension/GERD Complicates care, management, recovery and prognosis. Continue home medications as indicated. This note was generated with [employer] software. It may contain incorrect words, spelling, and punctuation that were not noted in checking the note before signing. Code Visit Inpatient E&M: 72797 Subs Hosp L2
--- NOTE | 2018-09-09 10:24 | PN_ITS ---
Patient Problems: Active and Suspected Problems (Last Reviewed 08/24/18 @ 03:05 by Andrés Mane MD) Community acquired pneumonia (Acute) Hypoxemia (Acute) Subjective: Patient seen appears to be in an enthusiastic mood. Awaiting insurance precertification prior to transfer to longterm facility Objective: GENERAL: Somewhat dyspneic at rest HEENT: Atraumatic; moist oral mucosa EYES; Anicteric, Normal Conjunctiva NECK; supple, normal thyroid, no distended JVD. RESPIRATORY: Diminished to auscultation bilaterally, bibasilar crackles CARDIOVASCULAR: Regular S1 S2, no audible murmurs GI: soft, non-tender, normoactive bowel sounds, : No Renal angle tenderness; EXTREMITIES: No edema, no clubbing, no cyanosis. MUSCULOSKELETAL: No Joint Tenderness; no muscle waisting NEURO: Awake; no lateralizing signs. SKIN: No Rash PSYCH; Normal affect Vitals/I&O's: Vital Signs Temp Pulse Resp BP Pulse Ox 98.0 F 90 16 108/65 92 09/09/18 09:20 09/09/18 09:23 09/09/18 09:20 09/09/18 09:23 09/09/18 09:20 Oxygen Flow Rate (L/min) [ 15 AMBULATION with Oxygen] Oxygen Flow Rate (L/min) 6 Oxygen Delivery Method Nasal Cannula Weight: 83.3 kg Body Mass Index (BMI) 28.9 Intake and Output for Last 24 Hours 09/07/18 09/08/18 09/09/18 23:59 23:59 23:59 Intake Total 1660 / 1660 1560 / 1560 200 / 200 Output Total 2150 / 2150 2340 / 2340 725 / 725 Balance -490 / -490 -780 / -780 -525 / -525 Laboratory Results 09/05/18 05:46: Diff Path Review Reviewed 09/07/18 05:15: Diff Path Review Reviewed Current Medications Acetaminophen (Tylenol) 650 mg PO Q4H PRN PRN PRN Reason: FEVER Last Admin: 09/08/18 09:44 Dose: 650 mg Albuterol Sulfate (Ventolin Aerosols) 2.5 mg INHALATION Q2H PRN PRN PRN Reason: SHORTNESS OF BREATH Last Admin: 08/24/18 04:02 Dose: 2.5 mg Albuterol/Ipratropium (Duoneb) 3 ml INHALATION Q4H.RT [facility] Last Admin: 09/09/18 03:09 Dose: Not Given Amlodipine Besylate (Norvasc) 5 mg PO DAILY [facility] Last Admin: 09/09/18 09:22 Dose: Not Given Aspirin (Ecotrin) 81 mg PO DAILY@0800 [facility] Last Admin: 09/09/18 09:16 Dose: 81 mg Benzonatate (Tessalon Perle) 200 mg PO TID PRN PRN PRN Reason: COUGH Chlorhexidine Gluconate () 1 each TOPICAL DAILY [facility] Last Admin: 09/09/18 09:23 Dose: Not Given Cholecalciferol (Vitamin D) 5,000 unit PO DAILY [facility] Last Admin: 09/09/18 09:16 Dose: 5,000 unit Furosemide (Lasix) 40 mg PO BID@1000,1800 [facility] Last Admin: 09/09/18 09:16 Dose: 40 mg Guaifenesin (Mucinex) 1,200 mg PO BID [facility] Last Admin: 09/09/18 09:16 Dose: 1,200 mg Hydroxyzine Pamoate (Vistaril Pamoate Capsule) 25 mg PO QHS PRN PRN Reason: SLEEP Last Admin: 08/28/18 21:45 Dose: 25 mg Sodium Chloride () 250 mls @ 15 mls/hr IV .[id number] PRN PRN Reason: SALINE FLUSH Last Admin: 08/25/18 11:39 Dose: 15 mls/hr Ipratropium [place] (Atrovent Nasal [place] (G)) 2 spray NASAL BID [facility] Last Admin: 09/09/18 09:15 Dose: 2 spray Lactobacillus Acidophilus (Acidophilus) 1 tablet PO DAILY [facility] Last Admin: 09/09/18 09:16 Dose: 1 tablet Magnesium Hydroxide (Milk Of Magnesia) 30 ml PO DAILY PRN PRN Reason: Constipation Last Admin: 09/08/18 22:01 Dose: 30 ml Metoprolol Tartrate (Lopressor (Beta Haris)) 12.5 mg PO BID [facility] Last Admin: 09/09/18 09:23 Dose: Not Given Morphine Sulfate () 2 mg IV Q3H PRN PRN PRN Reason: SEVERE PAIN (6-10/10) [facility]it[facility] ([facility]itamin) [facility] Last Admin: 12/05/18 09:16 Dose: 1 tablet Nitroglycerin (Nitrostat) 0.4 mg SUBLINGUAL Q5M PRN PRN Reason: CARDIAC/CHEST PAIN Last Admin: 09/07/18 14:30 Dose: 0.4 mg Ondansetron HCl (Zofran) 4 mg IV Q8H PRN PRN PRN Reason: NAUSEA Pantoprazole Sodium (Protonix) 20 mg PO DAILY [facility] Last Admin: 09/09/18 09:16 Dose: 20 mg Prednisone () 30 mg PO DAILY@0800 [facility]; Taper Stop: 09/18/18 07:59 Last Admin: 09/09/18 09:17 Dose: 30 mg [facility]) [facility] Last Admin: 09/09/18 09:16 Dose: 15 mg Senna/Docusate Sodium (Senokot-S, Aimee-Colace) 1 tablet PO BID [facility] Last Admin: 09/09/18 09:16 Dose: 1 tablet Sodium Chloride () 5 - 30 ml IV UD PRN PRN Reason: SALINE FLUSH Last Admin: 09/05/18 09:53 Dose: 10 ml Sodium Chloride ([place] Nasal [place]) 2 spray NASAL TID PRN PRN PRN Reason: NASAL DRYNESS Last Admin: 09/02/18 06:08 Dose: 2 sprays Medical Necessity - Tobacco Use Smoking Status: Former smoker Assessment/Plan All Active Problems (Last Reviewed 08/24/18 @ 03:05 by Andrés Mane MD) Community acquired pneumonia (Acute) Hypoxemia (Acute) History of bilateral cataract extraction (Resolved) Status post trigger finger release (Resolved) History of cholecystectomy (Resolved) History of bilateral carpal tunnel release (Resolved) History of prostatectomy (Resolved) History of coronary artery bypass graft x 3 (Resolved) History of colonoscopy (Resolved) Patient is a 73-year-old gentleman with history of rheumatoid arthritis, chronic hypoxic respiratory failure who presented with worsening shortness of breath.. An assessment of acute hypoxic respiratory failure was made admitted to the intensive care unit managed on noninvasive ventilation stabilized and subsequently transferred to the progressive care unit 1. Acute on chronic hypoxic respiratory failure multifactorial including suspected nonspecific interstitial pneumonia versus idiopathic pulmonary fibrosis. CT chest on admission demonstrated Changes compatible with a progressive pulmonary fibrosis with evidence of honeycombing and bronchiectasis. Patient managed with steroids. Consultation was placed to Dr. Silva with pulmonary medicine his notes and recommendations reviewed. Patient breathing still remains labored. Plan is for patient to be discharged to longterm facility once insurance approval is obtained. Clinical condition continues to improve 2. Acute on chronic diastolic heart failure improved with Lasix 3. Chronic cor pulmonale secondary to patient underlying lung disease 5. Hypokalemia secondary to use of diuretics repleted per protocol 6. Coronary artery disease with previous CABG in the past 7. 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 Rheumatoid arthritis patient is followed by emergency response coordinator in [place] plan is for patient to follow-up following discharge 9. Hypertension-blood pressure controlled, home medications continued with dose adjustment as needed 10. 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 Physical deconditioning PT OT as tolerated with plans for patient to be transferred to a longterm facility once insurance precertification is obtained 12. DVT prophylaxis on Xarelto no need for additional measures Code Visit Inpatient E&M: 10107 Subs Hosp L2
--- NOTE | 2018-09-09 13:43 | CASEMGMT ---
RYAN called Diana at [facility] and asked if they have heard anything from insurance. They have not, but she was going to talk with her business office person and have her call and check on pre-cert. Sandra LINDSEY MSW
[2018-09-09] MEDS: Sodium Chloride 0.65% 1 SPRAY SPRAY.BTL 2 SPRAY NASAL (21:50)
[2018-09-09] MEDS: Magnesium Hydroxide 30 ML UDC PO (21:55)
[2018-09-09] MEDS: Metoprolol Tartrate 25 MG Tablet 12.5 MG PO (21:56)
[2018-09-10] VITALS (10 sets, daily range): BP systolic 111–125; BP diastolic 61–73; PULSE 71–111; RESP 18–20; TEMP 36.5–37.1; O2SAT 89–93
[2018-09-10] MEDS: Ipratropium/Albuterol Sulfate 3 ML AMPUL.NEB INHALATION ×2 (06:39→10:46)
--- NOTE | 2018-09-10 07:01 | PN_ITS ---
Patient Problems: Active and Suspected Problems (Last Reviewed 08/24/18 @ 03:05 by Andrés Mane MD) Community acquired pneumonia (Acute) Hypoxemia (Acute) Subjective: The patient was seen and examined at the bedside this morning. Events from the last 24 hours have been reviewed. The patient is currently afebrile, hemodynamically stable and maintaining appropriate oxygen saturations on 6 L/min via nasal cannula. The patient's insurance precertification was just received this morning and he should therefore be able to be discharged today. Objective: The patient's most recent lab work, culture data and imaging studies have all been personally reviewed. Previous chest CT from April 2018 revealed evidence of emphysematous changes along with subpleural reticular changes and focal areas of honeycombing. There was also evidence of traction bronchiectasis. A repeat CT chest (high-resolution) was obtained on August 24 and revealed evidence of significant reticular and groundglass changes bilaterally along with traction bronchiectasis and some subpleural honeycombing, suggestive of fibrotic lung disease. The changes noted on the patient's most recent CT chest had progressed significantly since his last imaging study in April 2018. Surface echocardiogram revealed evidence of stage I diastolic dysfunction with a pulmonary artery systolic pressure estimated to be 44 mmHg. The patient's respiratory viral panel was negative. Strep and urine Legionella antigens were negative. Blood a nd urine cultures have shown no growth to date. - Physical Exam General: Alert, Oriented x3, Cooperative, No apparent distress HEENT: Atraumatic, PERRLA, Normocephalic Oral: No Gingival or Mucosal Lesions/ Ulcerations Neck: Supple, No Nodes, Trachea Midline Lungs: No rhonchi, No wheeze, Diminished, Rales Cardiovascular: Regular rate, Regular Rhythm, Normal S1, Normal S2, No murmurs Abdomen: Bowel Sounds Present, Soft, Non Tender, Non-Distended Extremities: No cyanosis, No edema, Clubbing Skin: No breakdown Musculoskeletal: No Tenderness to Palpation of Joints or Extremities, No Muscle Wasting Lymphatic: No Cervical, Supraclavicular, or Inguinal Adenopathy Neurological: Cranial nerves II-XII grossly intact, Neuro grossly intact Psych/Mental Status: Alert and oriented to time, place, person, mood and affect Vital Signs Temp Pulse Resp BP Pulse Ox 36.5 C L 78 18 125/73 H 93 09/10/18 03:40 09/10/18 03:40 09/10/18 03:40 09/10/18 03:40 09/10/18 03:40 Oxygen Flow Rate (L/min) [ 15 AMBULATION with Oxygen] Oxygen Flow Rate (L/min) 6 Oxygen Delivery Method Nasal Cannula Weight: 183 lb 6.793 oz Body Mass Index (BMI) 28.9 Intake and Output for Last 24 Hours 09/08/18 09/09/18 09/10/18 23:59 23:59 23:59 Intake Total 1560 / 1560 1160 / 1160 400 / 400 Output Total 2340 / 2340 2175 / 2175 875 / 875 Balance -780 / -780 -1015 / -1015 -475 / -475 Clinical Impression(s) from Imaging Studies Chest X-Ray 08/24/18 01:19 IMPRESSION: Increasing right-sided airspace consolidation and left-sided airspace consolidation since previous study consistent with pneumonia. Electronically Signed: Carmencita Barron MD at 2:01 EST , Service support , Chest CT 08/24/18 11:20 IMPRESSION: Changes compatible with a progressive pulmonary fibrosis with evidence of honeycombing and bronchiectasis. This is worse in the right hemithorax. Enlarged bilateral axillary lymph nodes. Electronically Signed: Joseph Sheriff MD at 12:53 EST Tel [phone], Service support , Chest X-Ray 08/30/18 07:38 IMPRESSION: Persistent bilateral peripheral mixed interstitial and air space opacities some of which maybe chronic. Acute disease unfortunately cannot be excluded. Electronically Signed: Carmencita Barron MD at 8:23 EST , Service support , Medical Necessity - Tobacco Use Smoking Status: Former smoker Assessment/Plan All Active Problems (Last Reviewed 08/24/18 @ 03:05 by Andrés Mane MD) Community acquired pneumonia (Acute) Hypoxemia (Acute) History of bilateral cataract extraction (Resolved) Status post trigger finger release (Resolved) History of cholecystectomy (Resolved) History of bilateral carpal tunnel release (Resolved) History of prostatectomy (Resolved) History of coronary artery bypass graft x 3 (Resolved) History of colonoscopy (Resolved) RECOMMENDATIONS: 1. Continue to wean oxygen as tolerated. 2. Encourage incentive spirometer use and mobilize patient as tolerated. 3. Continue scheduled bronchodilators. 4. Continue prednisone 40 mg daily. 5. Continue Xarelto as ordered. 6. Continue gentle diuresis as tolerated. IMPRESSIONS: 1. Acute hypoxic respiratory failure/underlying mixed ventilatory defect with exacerbation/bronchiectasis Likely multifactorial in etiology. While the patient did have what appeared to be the beginning stages of an interstitial lung process in April, a high resolution chest CT obtained during this hospitalization revealed significant interval worsening in the patient's fibrotic interstitial lung disease. While I cannot discount the possibility for underlying pulmonary infectious process, the patient has known bronchiectasis which could be contributing to his current cough complaints. In addition, a surface echocardiogram did reveal evidence of diastolic dysfunction and pulmonary hypertension. My clinical concern is that the patient's evolving interstitial lung process could be the consequence of idiopathic pulmonary fibrosis versus fibrosing NSIP, given that the patient was recently identified as having rheumatoid arthritis. For now, the patient will be continued on prednisone with plans to continue him on 40 mg daily until follow-up by rheumatology. In essence, the patient either has a steroid responsive interstitial lung process or a non-steroid responsive interstitial lung process, with idiopathic pulmonary fibrosis being a non-steroid responsive lung disease. While the patient does have some overlap radiographically between potential NSIP and IPF, my concern is that he does not appear to be responding readily to steroids. If the patient's lung disease is truly related to IPF, there would be no treatment to reverse the fibrotic changes that have already taken place. 2. Heart failure with preserved ejection fraction/pulmonary hypertension The patient's pulmonary hypertension is most likely the consequence of his underlying pulmonary process coupled with hypoxia. Continue current supportive measures as noted above. The patient will be continued on Lasix as tolerated. 3. Lower extremity DVTs Given the patient's refractory hypoxia, there was concern for venous thromboembolic disease. However, the patient had a reported allergy to contrast, which precluded our ability to obtain a CTA chest. Therefore, lower extremity Dopplers were obtained, which were positive for DVTs. The patient has been placed on Xarelto accordingly. 4. Recently diagnosed rheumatoid arthritis and MGUS The patient was referred to rheumatology from the office of Dr. Hein after he was noted to have a positive rheumatoid factor and anti-CCP antibody. However, the supervisor gear repair identified an abnormal M protein, which prompted a referral to Dr. Sol of hematology. I personally discussed the patient with Dr. 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 I do feel that it will be imperative that the patient return to the supervisor gear repair as quickly as possible to be started on therapy for his underlying rheumatologic disease, as this could be contributing to his current lung manifestations. I did call and speak with the patient's supervisor gear repair, Dr. Moise, at the [facility] ([phone]), who indicated that it was his intention to start the patient on a medication like Imuran, once he was cleared by hematology. We will plan to call the patient's supervisor gear repair office once the patient has been medically stabilized for discharge to set up an expedited follow-up office visit. He is currently scheduled for a follow-up visit on October 12. Prior history of tobacco abuse/hypertension/GERD Complicates care, management, recovery and prognosis. Continue home medications as indicated. This note was generated with [employer] dictation software. It may contain incorrect words, spelling, and punctuation that were not noted in checking the note before signing. Code Visit Inpatient E&M: 91505 Subs Hosp L2
[2018-09-10] MEDS: Multivitamins,Therapeutic Tablet 1 TABLET PO (09:04)
[2018-09-10] MEDS: Aspirin E.C. 81 MG Tablet PO (09:04)
[2018-09-10] MEDS: Rivaroxaban 15 MG Tablet PO (09:05)
[2018-09-10] MEDS: predniSONE 20 MG Tablet 30 MG PO (09:05)
[2018-09-10] MEDS: Ipratropium Bromide 0.06% NASAL SPRAY 2 SPRAY NASAL (10:31)
[2018-09-10] MEDS: Furosemide 40 MG Tablet PO (10:32)
[2018-09-10] MEDS: Metoprolol Tartrate 25 MG Tablet 12.5 MG PO (10:33)
[2018-09-10] MEDS: Pantoprazole Sodium 20 MG Tablet PO (10:34)
[2018-09-10] MEDS: amLODIPine 10 MG Tablet 5 MG PO (10:34)
[2018-09-10] MEDS: guaiFENesin 1,200 MG Tablet 1200 MG PO (10:34)
[2018-09-10] MEDS: Senna/Docusate Sodium 1 Tablet PO (10:43)
--- NOTE | 2018-09-10 12:15 | PCM.EXTCARCO ---
- Diet 08/24/18 03:38 Diet: Cardiac/Low Cholesterol Food consistency:: Regular Liquid Consistency:: Regular/Thin - Routine Orders/Code Status Enema Type: Fleetz Enema Frequency: Daily PRN Suppository Type: Dulcolax 10mg Suppository Frequency: Daily PRN O2 Liters per Minute: 2-6 O2 Frequency: Continuous Keep PO Greater than or Equal to (%): 90 Routine Lab Work: CBC, BMP, - - Q Week Code Status: Full Code - Suggestions for Active Care Change Position every (hours): 2 Times a day to sit in chair: 3 - Therapies Physical Therapy: Eval and Treat Occupational Therapy: Eval and Treat - Problem/Diagnosis (1) Community acquired pneumonia Status: Acute Current Visit: Yes (2) Hypoxemia Status: Acute Current Visit: Yes (3) CAD (coronary artery disease) Status: Chronic Current Visit: No (4) COPD (chronic obstructive pulmonary disease) Status: Chronic Current Visit: No (5) DVT (deep venous thrombosis) Status: Acute Current Visit: Yes - Allergies/Procedures Done in Hospital Allergies/Adverse Reactions: Allergies amoxicillin [From Augmentin] Allergy (Verified 08/24/18 01:11) Other I GET SWEATY AND CRAZY. clavulanic acid [From Augmentin] Allergy (Verified 08/24/18 01:11) Other I GET SWEATY AND CRAZY. hydrocodone Allergy (Verified 08/24/18 01:11) Other I GET SWEATY AND CRAZY. Iodinated Contrast- Oral and IV Dye [DYEE] Allergy (Verified 08/24/18 01:11) Angioedema naproxen Allergy (Verified 08/24/18 01:11) Other I GET SWEATY AND CRAZY. prednisone Allergy (Verified 08/24/18 01:11) Other I GET SWEATY AND CRAZY. Procedures: 2-D Echocardiogram - Type of Care/Length of Stay Estimated LOS: Convalescent Care Less Than 30 days Type of Care Needed: Skilled Rehab Potential: Fair Prognosis: Fair - Additional Orders/Day of Discharge H&P will serve as current which was dated: 08/24/18 Day of Discharge: 09/10/18 - Dietary and Speech Recommendations Dietitian Recommendations/Changes: Consider cardiac/carbohydrate-controlled diet as needed if blood glucose remains elevated. Will d/c ensure pudding at breakfast d/t improved po intake - continue supplements at lunch and dinner. - Follow Up Care Primary Care Physician: Tati Medina MD [Primary Care Provider] - Please follow up with your Primary Care Physician in: 1 Week Please Follow Up With: Adryan Silva DO When: 1-2 Weeks Please Follow Up With: Dr. Moise When: As scheduled 10/12/17.
--- NOTE | 2018-09-10 12:23 | PCM.DC.SUM ---
<Irene Estrella - Last Filed: 09/10/18 12:42> Discharge Date and Diagnosis Date of Admission: 08/24/18 Date of Discharge: 09/10/18 - Primary Discharge Diagnosis Active and Suspected Problems (Last Reviewed 08/24/18 @ 03:05 by Andrés Mane MD) 1. Acute on chronic hypoxic respiratory failure, multifactorial due to nonspecific interstitial pneumonia versus idiopathic pulmonary fibrosis 2. Acute on chronic diastolic CHF 3. Hypokalemia 4. Chronic cor pulmonale due to underlying chronic lung disease 5. Rheumatoid arthritis 6. MGUS 7. Coronary artery disease with history of CABG 8. Hypertension 9. Bilateral lower extremity DVTs, presumed PE 10. Physical deconditioning, debility - Secondary Discharge Diagnosis Chronic Problems (Last Reviewed 08/24/18 @ 03:05 by Andrés Mane MD) History of [place] (myocardial infarction) (Chronic) CAD (coronary artery disease) (Chronic) Pulmonary fibrosis (Chronic) COPD (chronic obstructive pulmonary disease) (Chronic) Hospital Course and Treatment Imaging Results: Diagnostic Data Chest CT 08/24/18 11:20 IMPRESSION: Changes compatible with a progressive pulmonary fibrosis with evidence of honeycombing and bronchiectasis. This is worse in the right hemithorax. Enlarged bilateral axillary lymph nodes. Electronically Signed: Joseph Sheriff MD at 12:53 EST Tel [phone], Service support , Chest X-Ray 08/30/18 07:38 IMPRESSION: Persistent bilateral peripheral mixed interstitial and air space opacities some of which maybe chronic. Acute disease unfortunately cannot be excluded. Electronically Signed: Carmencita Barron MD at 8:23 EST , Service support , Dr. Silva- Pulmonary Medicine Operations: None Procedures: 2-D Echocardiogram Summary of Care Provided: The patient is a 73 year old M admitted 08/24/2018 due to shortness of breath. 1. Acute on chronic hypoxic respiratory failure, multifactorial due to nonspecific interstitial pneumonia versus idiopathic pulmonary fibrosis-pulmonary medicine consulted. CT of chest shows progressive pulmonary fibrosis with evidence of honeycombing and bronchiectasis. Patient will continue prednisone taper at discharge. Continue home inhaler regimen. 2. Acute on chronic diastolic CHF-echocardiogram with EF 60%, stage I diastolic dysfunction. Pulmonary artery systolic pressure 44 mmHg. Continue Lasix at discharge. 3. Hypokalemia-resolved. 4. Chronic cor pulmonale due to underlying chronic lung disease 5. Rheumatoid arthritis-continue outpatient follow-up with rheumatology and [place] as scheduled 10/12/2017. 6. MGUS-continues outpatient follow up with oncology. 7. Coronary artery disease with history of CABG-continue aspirin, beta-gustabo. 8. Hypertension-stable, continue current regimen. 9. Bilateral lower extremity DVTs, presumed PE-patient has allergy to contrast, CTA unable to be performed. Lower extremity Dopplers positive for DVTs. Patient will continue Xarelto 15 mg twice daily for 21 days followed by Xarelto 20 mg daily. 10. Physical deconditioning, debility- PT/OT. [facility] [place]. General: Alert, Oriented x3, Cooperative, No apparent distress HEENT: Atraumatic, PERRLA, Normocephalic Oral: No Gingival or Mucosal Lesions/ Ulcerations Neck: Supple, No Nodes, Trachea Midline Lungs: No rhonchi, No wheeze, Diminished Cardiovascular: Regular rate, Regular Rhythm, Normal S1, Normal S2, No murmurs Abdomen: Bowel Sounds Present, Soft, Non Tender, Non-Distended Extremities: No cyanosis, No edema, Clubbing Skin: No breakdown Musculoskeletal: No Tenderness to Palpation of Joints or Extremities, No Muscle Wasting Lymphatic: No Cervical, Supraclavicular, or Inguinal Adenopathy Neurological: Cranial nerves II-XII grossly intact, Neuro grossly intact Psych/Mental Status: Alert and oriented to time, place, person, mood and affect Patient seen and examined prior to discharge. Physical assessment as noted above. Patient is stable for discharge with follow up recommendations as noted above. This patient was seen by ERINN Lobato under the supervision of Dr. Yanez. - Physical Exam Vital Signs Temp Pulse Resp BP Pulse Ox 98.3 F 98 18 111/64 93 09/10/18 12:02 09/10/18 12:02 09/10/18 12:02 09/10/18 12:02 09/10/18 12:02 Oxygen Flow Rate (L/min) [ 15 AMBULATION with Oxygen] Oxygen Flow Rate (L/min) 6 Oxygen Delivery Method Nasal Cannula Weight: 183 lb 6.793 oz Body Mass Index (BMI) 28.9 Intake and Output for Last 24 Hours 09/08/18 09/09/18 09/10/18 23:59 23:59 23:59 Intake Total 1560 / 1560 1160 / 1160 860 / 860 Output Total 2340 / 2340 2175 / 2175 1175 / 1175 Balance -780 / -780 -1015 / -1015 -315 / -315 Home Medications: Medications to take at Discharge Amlodipine [Norvasc] 10 mg PO DAILY 05/04/18 Aspirin E.C. [Ecotrin] 81 mg PO DAILY@0800 05/04/18 Benzonatate [Tessalon Perle] 200 mg PO TID PRN PRN #20 cap 05/04/18 Cholecalciferol (Vitamin D3) [Vitamin D3] 5,000 unit PO DAILY 05/04/18 Hydroxyzine Pamoate 25 mg PO QHS PRN 05/04/18 L.acidoph,Paracasei, B.lactis [Probiotic] 10 tab PO DAILY 05/04/18 Metoprolol Tartrate 25 mg PO BID 05/04/18 Multivitamin [Daily Multiple Vitamin] 1 ea PO DAILY 05/04/18 Omeprazole 20 mg PO DAILY 05/04/18 albuterol sulfate HFA 90 mcg/actuation aerosol inhaler 2 puff INHALATION Q4H PRN #8.5 g 08/17/18 budesonide-formoterol HFA 160 mcg-4.5 mcg/actuation aerosol inhaler 2 puff INHALATION BID #1 ea 08/17/18 mometasone-formoterol HFA 200 mcg-5 mcg/actuation aerosol inhaler 2 puff INHALATION BID #13 g 08/24/18 Furosemide [Lasix] 40 mg PO BID@1000,1800 tablet 09/10/18 Ipratropium [employer] 0.06% [ATROVENT NASAL SPRAY] 2 spray NASAL BID nasal.sry 09/10/18 Rivaroxaban [Xarelto] 15 mg PO BIDCM tablet 09/10/18 predniSONE tablet 30 mg PO DAILY@0800 tablet 09/10/18 Primary Care Physician: Tati Medina MD [Primary Care Provider] - Please follow up with your Primary Care Physician in: 1 Week Please Follow Up With: Adryan Silva DO When: 1-2 Weeks Please Follow Up With: Dr. Moise When: As scheduled 10/12/17. Please Follow Up With: Clinton Sol DO When: As scheduled Disposition: [facility] facility Minutes spent on discharge:: 35 Patient Condition:: Stable Medical Necessity - Tobacco Use Smoking Status: Former smoker Meaningful Use Info Meaningful Use Diagnoses (Choose all that apply): CHF - CHF ALYSSA/ARB ordered at discharge?: No Reason ALYSSA/ARB not ordered?: Allergy Documented LVEF (%): 60 - Not indicated due to normal EF <Isaias Yanez - Last Filed: 09/10/18 13:08> Discharge Date and Diagnosis - Secondary Discharge Diagnosis Chronic Problems (Last Reviewed 08/24/18 @ 03:05 by Andrés Mane MD) History of [place] (myocardial infarction) (Chronic) CAD (coronary artery disease) (Chronic) Pulmonary fibrosis (Chronic) COPD (chronic obstructive pulmonary disease) (Chronic) Hospital Course and Treatment Summary of Care Provided: This patient was seen in conjunction with ERINN Lobato . I have independently interviewed and examined the patient and reviewed pertinent historical, laboratory, and other data. Please refer to ERINN Lobato note for details of this patient's presentation, findings, and recommendations. I have reviewed ERINN Lobato note and concur with documented findings. In brief,Patient is a 73-year-old gentleman with history of rheumatoid arthritis, chronic hypoxic respiratory failure who presented with worsening shortness of breath.. An assessment of acute hypoxic respiratory failure was made admitted to the intensive care unit managed on noninvasive ventilation stabilized and subsequently transferred to the progressive care unit Assessment: 1. Acute on chronic hypoxic respiratory failure multifactorial including suspected nonspecific interstitial pneumonia versus idiopathic pulmonary fibrosis. 2. Acute on chronic diastolic heart failure 3. Chronic cor pulmonale secondary to patient underlying lung disease 5. Hypokalemia 6. Coronary artery disease with previous CABG in the past 7. 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 Rheumatoid arthritis 9. Hypertension 10. 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 Physical deconditioning Hospital course: As detailed above by Irene Estrella NP-C - Physical Exam Vital Signs Temp Pulse Resp BP Pulse Ox 98.3 F 98 18 111/64 93 09/10/18 12:02 09/10/18 12:02 09/10/18 12:02 09/10/18 12:02 09/10/18 12:02 Oxygen Flow Rate (L/min) [ 15 AMBULATION with Oxygen] Oxygen Flow Rate (L/min) 6 Oxygen Delivery Method Nasal Cannula Weight: 83.2 kg Body Mass Index (BMI) 28.9 Intake and Output for Last 24 Hours 09/08/18 09/09/18 09/10/18 23:59 23:59 23:59 Intake Total 1560 / 1560 1160 / 1160 860 / 860 Output Total 2340 / 2340 2175 / 2175 1175 / 1175 Balance -780 / -780 -1015 / -1015 -315 / -315 Code Visit Inpatient E&M: 43625 Disch Hosp
--- NOTE | 2018-09-10 12:27 | DS.PCM_ITS ---
<Irene Estrella - Last Filed: 09/10/18 12:42> Discharge Date and Diagnosis Date of Admission: 08/24/18 Date of Discharge: 09/10/18 - Primary Discharge Diagnosis Active and Suspected Problems (Last Reviewed 08/24/18 @ 03:05 by Andrés Mane MD) 1. Acute on chronic hypoxic respiratory failure, multifactorial due to nonspecific interstitial pneumonia versus idiopathic pulmonary fibrosis 2. Acute on chronic diastolic CHF 3. Hypokalemia 4. Chronic cor pulmonale due to underlying chronic lung disease 5. Rheumatoid arthritis 6. MGUS 7. Coronary artery disease with history of CABG 8. Hypertension 9. Bilateral lower extremity DVTs, presumed PE 10. Physical deconditioning, debility - Secondary Discharge Diagnosis Chronic Problems (Last Reviewed 08/24/18 @ 03:05 by Andrés Mane MD) History of NH (myocardial infarction) (Chronic) CAD (coronary artery disease) (Chronic) Pulmonary fibrosis (Chronic) COPD (chronic obstructive pulmonary disease) (Chronic) Hospital Course and Treatment Imaging Results: Diagnostic Data Chest CT 08/24/18 11:20 IMPRESSION: Changes compatible with a progressive pulmonary fibrosis with evidence of honeycombing and bronchiectasis. This is worse in the right hemithorax. Enlarged bilateral axillary lymph nodes. Electronically Signed: Joseph Sheriff MD at 12:53 EST Tel [phone], Service support , Chest X-Ray 08/30/18 07:38 IMPRESSION: Persistent bilateral peripheral mixed interstitial and air space opacities some of which maybe chronic. Acute disease unfortunately cannot be excluded. Electronically Signed: Carmencita Barron MD at 8:23 EST , Service support , Dr. Silva- Pulmonary Medicine Operations: None Procedures: 2-D Echocardiogram Summary of Care Provided: The patient is a 73 year old M admitted 08/24/2018 due to shortness of breath. 1. Acute on chronic hypoxic respiratory failure, multifactorial due to nonspecific interstitial pneumonia versus idiopathic pulmonary fibrosis- pulmonary medicine consulted. CT of chest shows progressive pulmonary fibrosis with evidence of honeycombing and bronchiectasis. Patient will continue prednisone taper at discharge. Continue home inhaler regimen. 2. Acute on chronic diastolic CHF-echocardiogram with EF 60%, stage I diastolic dysfunction. Pulmonary artery systolic pressure 44 mmHg. Continue Lasix at discharge. 3. Hypokalemia-resolved. 4. Chronic cor pulmonale due to underlying chronic lung disease 5. Rheumatoid arthritis-continue outpatient follow-up with rheumatology and [facility] as scheduled 10/12/2017. 6. MGUS-continues outpatient follow up with oncology. 7. Coronary artery disease with history of CABG-continue aspirin, beta-gustabo. 8. Hypertension-stable, continue current regimen. 9. Bilateral lower extremity DVTs, presumed PE-patient has allergy to contrast, CTA unable to be performed. Lower extremity Dopplers positive for DVTs. Patient will continue Xarelto 15 mg twice daily for 21 days followed by Xarelto 20 mg daily. 10. Physical deconditioning, debility- PT/OT. SNF at [place]. General: Alert, Oriented x3, Cooperative, No apparent distress HEENT: Atraumatic, PERRLA, Normocephalic Oral: No Gingival or Mucosal Lesions/ Ulcerations Neck: Supple, No Nodes, Trachea Midline Lungs: No rhonchi, No wheeze, Diminished Cardiovascular: Regular rate, Regular Rhythm, Normal S1, Normal S2, No murmurs Abdomen: Bowel Sounds Present, Soft, Non Tender, Non-Distended Extremities: No cyanosis, No edema, Clubbing Skin: No breakdown Musculoskeletal: No Tenderness to Palpation of Joints or Extremities, No Muscle Wasting Lymphatic: No Cervical, Supraclavicular, or Inguinal Adenopathy Neurological: Cranial nerves II-XII grossly intact, Neuro grossly intact Psych/Mental Status: Alert and oriented to time, place, person, mood and affect Patient seen and examined prior to discharge. Physical assessment as noted above. Patient is stable for discharge with follow up recommendations as noted above. This patient was seen by ERINN Lobato under the supervision of Dr. Yanez. - Physical Exam Vital Signs Temp Pulse Resp BP Pulse Ox 98.3 F 98 18 111/64 93 09/10/18 12:02 09/10/18 12:02 09/10/18 12:02 09/10/18 12:02 09/10/18 12:02 Oxygen Flow Rate (L/min) [ 15 AMBULATION with Oxygen] Oxygen Flow Rate (L/min) 6 Oxygen Delivery Method Nasal Cannula Weight: 183 lb 6.793 oz Body Mass Index (BMI) 28.9 Intake and Output for Last 24 Hours 09/08/18 09/09/18 09/10/18 23:59 23:59 23:59 Intake Total 1560 / 1560 1160 / 1160 860 / 860 Output Total 2340 / 2340 2175 / 2175 1175 / 1175 Balance -780 / -780 -1015 / -1015 -315 / -315 Home Medications: Medications to take at Discharge Amlodipine [Norvasc] 10 mg PO DAILY 05/04/18 Aspirin E.C. [Ecotrin] 81 mg PO DAILY@0800 05/04/18 Benzonatate [Tessalon Perle] 200 mg PO TID PRN PRN #20 cap 05/04/18 Cholecalciferol (Vitamin D3) [Vitamin D3] 5,000 unit PO DAILY 05/04/18 Hydroxyzine Pamoate 25 mg PO QHS PRN 05/04/18 L.acidoph,Paracasei, B.lactis [Probiotic] 10 tab PO DAILY 05/04/18 Metoprolol Tartrate 25 mg PO BID 05/04/18 Multivitamin [Daily Multiple Vitamin] 1 ea PO DAILY 05/04/18 Omeprazole 20 mg PO DAILY 05/04/18 albuterol sulfate HFA 90 mcg/actuation aerosol inhaler 2 puff INHALATION Q4H PRN #8.5 g 08/17/18 budesonide-formoterol HFA 160 mcg-4.5 mcg/actuation aerosol inhaler 2 puff INHALATION BID #1 ea 08/17/18 mometasone-formoterol HFA 200 mcg-5 mcg/actuation aerosol inhaler 2 puff INHALATION BID #13 g 08/24/18 Furosemide [Lasix] 40 mg PO BID@1000,1800 tablet 09/10/18 Ipratropium [place] 0.06% [ATROVENT NASAL SPRAY] 2 spray NASAL BID nasal.sry 09/10/18 Rivaroxaban [Xarelto] 15 mg PO BIDCM tablet 09/10/18 predniSONE tablet 30 mg PO DAILY@0800 tablet 09/10/18 Primary Care Physician: Tati Medina MD [Primary Care Provider] - Please follow up with your Primary Care Physician in: 1 Week Please Follow Up With: Adryan Silva DO When: 1-2 Weeks Please Follow Up With: Dr. Moise When: As scheduled 10/12/17. Please Follow Up With: Clinton Sol DO When: As scheduled Disposition: Group Home facility Minutes spent on discharge:: 35 Patient Condition:: Stable Medical Necessity - Tobacco Use Smoking Status: Former smoker Meaningful Use Info Meaningful Use Diagnoses (Choose all that apply): CHF - CHF ALYSSA/ARB ordered at discharge?: No Reason ALYSSA/ARB not ordered?: Allergy Documented LVEF (%): 60 - Not indicated due to normal EF <Isaias Yanez - Last Filed: 09/10/18 13:08> Discharge Date and Diagnosis - Secondary Discharge Diagnosis Chronic Problems (Last Reviewed 08/24/18 @ 03:05 by Andrés Mane MD) History of NH (myocardial infarction) (Chronic) CAD (coronary artery disease) (Chronic) Pulmonary fibrosis (Chronic) COPD (chronic obstructive pulmonary disease) (Chronic) Hospital Course and Treatment Summary of Care Provided: This patient was seen in conjunction with ERINN Lobato . I have independently interviewed and examined the patient and reviewed pertinent historical, laboratory, and other data. Please refer to ERINN Lobato note for details of this patient's presentation, findings, and recommendations. I have reviewed ERINN Lobato note and concur with documented findings. In brief,Patient is a 73-year-old gentleman with history of rheumatoid arthritis, chronic hypoxic respiratory failure who presented with worsening shortness of breath.. An assessment of acute hypoxic respiratory failure was made admitted to the intensive care unit managed on noninvasive ventilation stabilized and subsequently transferred to the progressive care unit Assessment: 1. Acute on chronic hypoxic respiratory failure multifactorial including suspected nonspecific interstitial pneumonia versus idiopathic pulmonary fibrosis. 2. Acute on chronic diastolic heart failure 3. Chronic cor pulmonale secondary to patient underlying lung disease 5. Hypokalemia 6. Coronary artery disease with previous CABG in the past 7. 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 Rheumatoid arthritis 9. Hypertension 10. 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 Physical deconditioning Hospital course: As detailed above by Irene Estrella NP-C - Physical Exam Vital Signs Temp Pulse Resp BP Pulse Ox 98.3 F 98 18 111/64 93 09/10/18 12:02 09/10/18 12:02 09/10/18 12:02 09/10/18 12:02 09/10/18 12:02 Oxygen Flow Rate (L/min) [ 15 AMBULATION with Oxygen] Oxygen Flow Rate (L/min) 6 Oxygen Delivery Method Nasal Cannula Weight: 83.2 kg Body Mass Index (BMI) 28.9 Intake and Output for Last 24 Hours 09/08/18 09/09/18 09/10/18 23:59 23:59 23:59 Intake Total 1560 / 1560 1160 / 1160 860 / 860 Output Total 2340 / 2340 2175 / 2175 1175 / 1175 Balance -780 / -780 -1015 / -1015 -315 / -315 Code Visit Inpatient E&M: 55586 Disch Hosp
--- NOTE | 2018-09-10 12:39 | PHA.DC.MR ---
Pharmacy Service has performed discharge medication reconciliation for this patient upon transfer to [facility] The patient's discharge medication list was reviewed for discrepancies and discrepancies were resolved. Home Medications Amlodipine [Norvasc] 10 mg PO DAILY 05/04/18 Aspirin E.C. [Ecotrin] 81 mg PO DAILY@0800 05/04/18 Benzonatate [Tessalon Perle] 200 mg PO TID PRN PRN #20 cap 05/04/18 Cholecalciferol (Vitamin D3) [Vitamin D3] 5,000 unit PO DAILY 05/04/18 Hydroxyzine Pamoate 25 mg PO QHS PRN 05/04/18 L.acidoph,Paracasei, B.lactis [Probiotic] 10 tab PO DAILY 05/04/18 Metoprolol Tartrate 25 mg PO BID 05/04/18 Multivitamin [Daily Multiple Vitamin] 1 ea PO DAILY 05/04/18 Omeprazole 20 mg PO DAILY 05/04/18 albuterol sulfate HFA 90 mcg/actuation aerosol inhaler 2 puff INHALATION Q4H PRN #8.5 g 08/17/18 budesonide-formoterol HFA 160 mcg-4.5 mcg/actuation aerosol inhaler 2 puff INHALATION BID #1 ea 08/17/18 Furosemide [Lasix] 40 mg PO BID@1000,1800 tablet 09/10/18 Ipratropium [place] 0.06% [ATROVENT NASAL SPRAY] 2 spray NASAL BID nasal.sry 09/10/18 Rivaroxaban [Xarelto] 15 mg PO BIDCM tablet 09/10/18 predniSONE tablet 30 mg PO DAILY@0800 tablet 09/10/18
--- NOTE | 2018-09-10 13:23 | NURSING ---
Report called to Nevaeh Herrera, gave report to KEYONNA Toney.
--- NOTE | 2018-09-10 13:27 | CASEMGMT ---
Received insurance approval for patient to go to [facility]. video library assistant and national secretary set up transport and faxed the orders to [facility]. They also notified [facility] and patient and his family. SW completed convalescent on . Plan: d/c to [facility] under skilled level of care on a convalescent stay. Sandra LINDSEY MSW
== END 2018-09-10 14:36 | disposition skilled nursing facility (03) | DRG 189 ==
LOC: ED 01:54 → PCU 02:46 → ICU 08-25 07:53 → PCU 09-02 16:18
PROVIDERS: Internal Medicine; Internal Medicine Critical Care Medicine; Student in an Organized Health Care Education/Training Program; Admitting Provider Hospitalist; Emergency Provider Emergency Medicine; Family Provider Family Medicine; PCP Family Medicine; Visit Provider Internal Medicine
DX: J96.21 Acute and chronic respiratory failure with hypoxia (principal); I50.33 Acute on chronic diastolic (congestive) heart failure; I26.99 Other pulmonary embolism without acute cor pulmonale; I82.403 Acute embolism and thrombosis of unspecified deep veins of lower extremity, bilateral; E87.6 Hypokalemia; J84.112 Idiopathic pulmonary fibrosis; J84.89 Other specified interstitial pulmonary diseases; I27.81 Cor pulmonale (chronic); M06.9 Rheumatoid arthritis, unspecified; D47.2 Monoclonal gammopathy; I11.0 Hypertensive heart disease with heart failure; R53.81 Other malaise; I25.10 Atherosclerotic heart disease of native coronary artery without angina pectoris; I25.2 Old myocardial infarction; Z95.1 Presence of aortocoronary bypass graft; Z87.891 Personal history of nicotine dependence; K21.9 Gastro-esophageal reflux disease without esophagitis; Z88.0 Allergy status to penicillin; Z79.899 Other long term (current) drug therapy; K64.9 Unspecified hemorrhoids; Z86.718 Personal history of other venous thrombosis and embolism
CPT/HCPCS: 36415; 36600; 71045; 71250; 80048; 80053; 81001; 82803; 82962; 83605; 83735; 83880; 84100; 84484; 85025; 85610; 85730; 86738; 87040; 87070; 87086; 87205; 87449; 87633; 87641; 93005; 93306; 93970; 94002; 94003; 94640; 94667; 94668; 97110; 97162; 97165; 97530; 97535; 97802; 99251; 99285; J7030; J7050; Q9957; A4216; G0463; J1940

== ENCOUNTER 2018-09-11 09:21 | Emergency (ER) | payer MEDICARE, SELFPAY ==
[2018-09-10 10:40] VITALS: BMI 28.9
[2018-09-11] VITALS (10 sets, daily range): BP systolic 107–132; BP diastolic 56–89; PULSE 88–104; RESP 17–26; TEMP 36.7–36.8; O2SAT 50–92; BMI 27.8
--- NOTE | 2018-09-11 09:53 | EKG12_ITS ---
Test Reason : SOB Blood Pressure : / mmHG Vent. Rate : 096 BPM Atrial Rate : 096 BPM P-R Int : 136 ms QRS Dur : 096 ms QT Int : 352 ms P-R-T Axes : 027 -07 018 degrees QTc Int : 444 ms Sinus rhythm with occasional Premature ventricular complexes and Premature atrial complexes Inferior infarct , age undetermined Abnormal ECG Confirmed by VINCENZO HERNANDEZ, MARIA DEL CARMEN ([id number]), editor department ALONZO MALONEY ([id number]) on 09/14/2018 1:54:17 PM Referred By: NATAN Confirmed By:MARIA DEL CARMEN LOYA MD
[2018-09-11] MEDS: Ipratropium/Albuterol Sulfate 3 ML AMPUL.NEB INHALATION (10:01)
[2018-09-11 10:12] LABS: Absolute Lymphocyte Count 1.81 X10^3/ul (0.83-4.51); Absolute Neutrophil Count 23.3 X10^3/uL (2.0-7.7); Basophil# 0.05 X10^3/uL; Basophil% 0.2 % (0-1); Eosinophil# 0.32 X10^3/uL; Eosinophils% 1.2 % (0-5); Hemoglobin 14.5 g/dl (13.0-16.5); Lymphocyte # 1.81 X10^3/ul (4.0); Lymphocyte % 6.6 % (19-41); Mean Corp Hgb Conc 33.7 g/gl (32-36); Mean Corpuscular Hgb 30.5 pg (27.0-32.0); Mean Corpuscular Volume 90.3 fL (80-94); Mean Platelet Vol. 9.9 fl (6.2-12.0); Monocyte# 1.36 X10^3/uL; Neutrophil # 23.28 X10^3/uL (2.7-7.7); Neutrophil % 85.3 % (47-70); Platelet Count 222 K/mm3 (150-450); RBC Distribution Width CV 14.6 % (11.6-14.6); RBC Distribution Width SD 47.1 fl (35.1-43.9); Red Blood Count 4.76 M/mm3 (4.6-6.2); White Blood Count 27.3 K/mm3 (4.4-11.0)
[2018-09-11 10:13] LABS: Differential Indicated SCAN CRITERIA MET; POSITIVE COUNT NO; POSITIVE DIFFERENTIAL YES; POSITIVE MORPHOLOGY NO
--- NOTE | 2018-09-11 10:20 | RAD_ITS ---
STUDY: X-RAY CHEST REASON FOR EXAM: Male, 73 years old. Shortness of breath/dyspnea. History of emphysema. TECHNIQUE: AP and lateral views of the chest. COMPARISON: Comparison is made with prior study dated August 30, 2018. FINDINGS: EKG electrodes are seen. Stable increased interstitial markings with areas of confluence worse in the lateral aspects of the right mid lungs is unchanged. This is in keeping with chronic interstitial fibrosis. There is no demonstrated pleural abnormality. Sternal cerclage wires and vascular clips are present from a prior sternotomy and coronary artery bypass graft procedure (CABG). Normal mediastinum and carlos. Normal visualized pulmonary arteries. There is atherosclerotic calcification of the aortic arch with tortuosity. There are diffuse degenerative changes of the visualized thoracic spine. Normal visualized ribs, clavicles, and shoulders. There is no demonstrated abnormality of the visualized soft tissue structures of the upper abdomen. RAD/Chest PA and Lateral IMPRESSION: Stable examination. Findings in keeping with chronic interstitial fibrosis. Electronically Signed: Joseph Sheriff MD at 10:54 EST Tel [phone], Service support ,
[2018-09-11 10:26] LABS: Allen Test POS; Base Excess 4 mmol/L (-2 to +2); Bicarbonate 27.5 mmol/L (22-26); Blood Gas Specimen Type ART; FI02 50; PO2 59 mmHG (75-100); SITE R Radial; SO2 92 % (95-99); Time Given 1015; Total Carbon Dioxide 29 mmol/L; pCO2 36.4 mmHg (35-45); pH 7.49 (7.35-7.45)
[2018-09-11 10:48] LABS: Anion Gap 9 (5-15); BUN 15 mg/dL (7-18); BUN/Creat Ratio 21.1 RATIO (10-20); Chloride 100 mmol/L (98-107); Creatinine, Serum 0.71 mg/dL (0.70-1.30); EST Glomerular Filtration Rate 115 mL/min (>60); Est Glom Filt Rate - Afr Amer 139 mL/min (>60); Estimated Creatinine Clearance 63.83 ml/min; Glucose 114 mg/dL (74-106); Potassium 3.2 mmol/L (3.5-5.1); Sodium Level 138 mmol/L (136-145)
--- NOTE | 2018-09-11 10:56 | NURSING ---
PT REQUESTED TO HAVE WRINKLED, EXTRA SHEETS REMOVED FROM UNDER HIS BOTTOM. WHILE MAINTAINING AN UPRIGHT POSITION, THIS NURSE ABLE TO REMOVED EXTRA BLANKETS WITH MINIMAL MOVEMENT BY PATIENT. SPO2 ON VENTI MASK 50% DROPPED FROM 89% TO 82%. ENCOURAGED SLOW, DEEP BREATHS. SPO2 INCREASED TO 89-90% WITHIN 2-3 MINUTES AFTER ACTIVITY.
--- NOTE | 2018-09-11 11:29 | ED.DCSUM_ITS ---
- ER Visit Summary Date of Service: 09/11/18 Chief Complaint: Shortness of breath History of Present Illness: The patient is a [address] Hein and Dr. Medina. He was admitted from August 24 until yesterday. He was discharged to [facility] yesterday afternoon. He reports that his shortness of breath got much worse this morning. States that severe when he walks around. It is mild at rest. Patient reports he has a cough productive of brown sputum that is chronic and unchanged. He denies any fever or chills. Reports that he has a aching left upper chest pain that is been present for weeks. He states that this only occurs when I breathe heavy. Physical Examination: Vitals: 98.1, 119/77, 95, 19, 82% on 6 L nasal cannula. 92% on a 40% Ventimask.. General: Well-nourished and well-developed. Head: Normocephalic atraumatic. Neck: Supple, no lymphadenopathy. No JVD. Nontender. Cardiovascular: Regular rate and rhythm. No murmurs. Respiratory: Mild respiratory distress. Fine crackles at the bases bilaterally. Abdominal: Soft, nontender, nondistended, normal bowel sounds. No guarding, rebound, or peritoneal signs. Back: Nontender. Extremities: Nontender, no edema. Skin: Normal color, no rash. Neurologic: Alert and oriented ?3. Cranial nerves II through XII are intact. Normal strength and sensation. Psych: Normal affect. Test Results: EKG is sinus at 96 with PVC. Its unchanged from August 24. CBC is more for white count 27.3 with 85 segmented neutrophils, 7 lymphocytes, immature granulocytes 1.7%. Chem-7 marked potassium 3.2, glucose 114, calcium of 8.0. Troponin is negative. ABG shows a pH of 7.49 with a CO2 of 29, bicarb of 27.5, PO2 of 59 and a sat of 92% on a 40% Ventimask. Emergency Department Course and Treatment: Patient was treated albuterol Atrovent aerosols. He remained on 40% Ventimask while here. He was given Solu- Medrol IV by EMS prior to arrival. He was given Lasix IV. He was also given his morning medications of Norvasc, aspirin, metoprolol, Protonix, prednisone orally. He is resting comfortably. Treatment Plan: The patient was discussed with Dr. Silva who states that there really is nothing more that we would do for him here. Diuresis is what helped with his pulse ox previously. He suspects that the patient has end-stage pulmonary fibrosis. However, he suggested the patient needs to see his [employer] manager to have rheumatoid lung ruled out. Patient was then discussed with Dr. Moise, his [employer] manager, who states that [facility] would take months to begin working and he does not have hospital privileges. He feels the patient would not need to see rheumatology as an inpatient. Patient was a scan discussed with Dr. Silva who states that the patient felt does not feel comfortable going back to the custodial that he should be transferred to a tertiary care center for second opinion. I discussed with patient. He has chosen [facility] and will be transferred there. Disposition: Transferred in serious condition. Impression: 1. Pulmonary fibrosis. 2. Hypoxia. This note was generated with [employer] dictation software. It may contain incorrect words, spelling, and punctuation that were not noted in review of the chart prior to signing ED Disposition - Plan for ED Patient: Chief Complaint: Shortness of Breath Referrals: Tati Medina MD [Primary Care Provider] -
[2018-09-11] MEDS: Furosemide 40 MG/4 ML Vial IV (13:02)
[2018-09-11] MEDS: amLODIPine 10 MG Tablet PO (13:21)
[2018-09-11] MEDS: Metoprolol Tartrate 25 MG Tablet PO (13:21)
[2018-09-11] MEDS: predniSONE 20 MG Tablet 30 MG PO (13:21)
[2018-09-11] MEDS: Rivaroxaban 15 MG Tablet PO (13:21)
[2018-09-11] MEDS: Aspirin E.C. 81 MG Tablet PO (13:21)
[2018-09-11 14:05] LABS: Reflex Lactate? Y
--- NOTE | 2018-09-11 14:10 | CASEMGMT ---
Social Work: TC from patient's son Isaias with concern for patient returning back to [facility] from the ED and would like patient placed in a SNF that is able to provide for high flow oxygen needs. Patient's son states that patient is currently in the ED at [facility]. Isaias states that he is on his way to [facility]. Spoke with patient and in ED room #3. Patient states that he does not want to go back to [facility]. Spoke with Dr. Flores who states that patient will be transferred to [facility] to the ICU unit. Spoke with patient, and daughter. Patient verbalizing to this SW I am going to [facility]. Patient giving this SW permission to call son Isaias with an update. TC to patient's son. No answer. Voicemail message left to call this SW. Will follow to assist as needed. CLARKE Duarte
[2018-09-11 14:56] LABS: Lactic Acid 2.3 mmol/L (0.4-2.0)
--- NOTE | 2018-09-11 15:34 | CASEMGMT ---
Social Work: TC to son Isaias. Isaias aware that patient has been transferred to [facility]. Isaias is aware and states that he has been in contact with his mother and sister and will be going straight to [facility]. CLARKE Duarte
== END 2018-09-11 15:08 | disposition short-term general hospital (02) ==
LOC: ED 09:55
PROVIDERS: Emergency Provider Emergency Medicine; Family Provider Family Medicine; PCP Family Medicine
DX: J84.10 Pulmonary fibrosis, unspecified (principal); R09.02 Hypoxemia; I25.10 Atherosclerotic heart disease of native coronary artery without angina pectoris; I10 Essential (primary) hypertension; J44.9 Chronic obstructive pulmonary disease, unspecified; I49.3 Ventricular premature depolarization; I50.9 Heart failure, unspecified; I25.2 Old myocardial infarction; Z95.1 Presence of aortocoronary bypass graft; Z82.49 Family history of ischemic heart disease and other diseases of the circulatory system; Z86.718 Personal history of other venous thrombosis and embolism
CPT/HCPCS: 36415; 36600; 71046; 80048; 82803; 83605; 84484; 85025; 93005; 94640; 96374; 96375; 99285; J1940

== ENCOUNTER → 2018-10-27 15:32 | Outpatient (CLI) | payer MEDICARE, SELFPAY ==
[2018-09-11 09:22] VITALS: BMI 27.8
[2018-10-27 17:05] LABS: AST(SGOT) 22 U/L (15-37); Alanine Aminotransfer ALT/SGPT 30 U/L (16-61); Albumin, Serum 3.2 g/dL (3.2-5.0); Alkaline Phosphatase 65 U/L (45-117); Anion Gap 11 (5-15); BUN 13 mg/dL (7-18); BUN/Creat Ratio 14.6 RATIO (10-20); Bilirubin, Direct 0.17 mg/dL (0.00-0.30); Calcium,Total 8.8 mg/dL (8.5-10.1); Chloride 102 mmol/L (98-107); Creatinine, Serum 0.89 mg/dL (0.70-1.30); EST Glomerular Filtration Rate 88 mL/min (>60); Est Glom Filt Rate - Afr Amer 107 mL/min (>60); Globulin 4.4 g/dL (2.2-4.2); Glucose 146 mg/dL (74-106); Magnesium 1.5 mg/dL (1.6-2.6); Potassium 4.3 mmol/L (3.5-5.1); Protein, Total 7.6 g/dL (6.4-8.2); Sodium Level 139 mmol/L (136-145)
--- OUTSIDE RECORDS SUMMARY | 2018-12-29 21:39 | XMS RPT_ITS ---
:1945 Author Organization OHIP Support Name Relationship Address Phone KAITY RAQUEL Unavailable [address] + [place] [address] R Unavailable Unavailable Unavailable WHITE, STANISLAV Unavailable [address] + [place] [address] BRICENO, RAQUEL Unavailable Unavailable + ~(330 BRICENO, RAQUEL Unavailable [address] + [place] [address] R Unavailable Unavailable Unavailable WHITE, STANISLAV Unavailable [address] + [place] [address] BRICENO, RAQUEL Unavailable [address] + [place] [address] R Unavailable Unavailable Unavailable WHITE, STANISLAV Unavailable [address] + [place] [address] BRICENO, RAQUEL Unavailable [address] + [place] [address] R Unavailable Unavailable Unavailable WHITE, STANISLAV Unavailable [address] + [place] [address] BRCIENO, RAQUEL Unavailable [address] + [place] [address] R Unavailable Unavailable Unavailable WHITE, STANISLAV Unavailable [address] + [place] [address] BRICENO, RAQUEL Unavailable [address] + [place] [address] R Unavailable Unavailable Unavailable WHITE, STANISLAV Unavailable [address] + [place] [address] BRICENO, RAQUEL Unavailable [address] + [place] [address] R Unavailable Unavailable Unavailable WHITE, STANISLAV Unavailable [address] + [place] [address] BRICENO, RAQUEL Unavailable [address] + [place] [address] R Unavailable Unavailable Unavailable WHITE, STANISLAV Unavailable [address] + [place] [address] BRICENO, RAQUEL Unavailable [address] + [place] [address] R Unavailable Unavailable Unavailable WHITE, STANISLAV Unavailable [address] + [place] [address] BRICENO, RAQUEL Unavailable [address] + [place] [address] R Unavailable Unavailable Unavailable WHITE, STANISLAV Unavailable [address] + [place] [address] BRICENO, RAQUEL Unavailable [address] + [place] [address] R Unavailable Unavailable Unavailable WHITE, STANISLAV Unavailable [address] + [place] [address] BRICENO, RAQUEL Unavailable [address] + [place] [address] R Unavailable Unavailable Unavailable WHITE, STANISLAV Unavailable [address] + [place] [address] BRICENO, RAQUEL Unavailable [address] + [place] [address] R Unavailable Unavailable Unavailable WHITE, STANISLAV Unavailable [address] + [place] [address] BRICENO, RAQUEL Unavailable [address] + [place] [address] R Unavailable Unavailable Unavailable WHITE, STANISLAV Unavailable [address] + [place] [address] BRICENO, RAQUEL Unavailable [address] + [place] [address] R Unavailable Unavailable Unavailable WHITE, STANISLAV Unavailable [address] + [place] [address] BRICENO, RAQUEL Unavailable [address] + [place] [address] R Unavailable Unavailable Unavailable WHITE, STANISLAV Unavailable [address] + [place] [address] BRICENO, RAQUEL Unavailable [address] + [place] [address] R Unavailable Unavailable Unavailable WHITE, STANISLAV Unavailable [address] + [place] [address] BRICENO, RAQUEL Unavailable [address] + [place] [address] R Unavailable Unavailable Unavailable WHITE, STANISLAV Unavailable [address] + [place] [address] BRICENO, RAQUEL Unavailable [address] + [place] [address] R Unavailable Unavailable Unavailable WHITE, STANISLAV Unavailable [address] + [place] [address] BRICENO, RAQUEL Unavailable [address] + [place] [address] R Unavailable Unavailable Unavailable WHITE, STANISLAV Unavailable [address] + [place] [address] BRICENO, RAQUEL Unavailable [address] + [place] [address] R Unavailable Unavailable Unavailable WHITE, STANISLAV Unavailable [address] + [place] [address] BRICENO, RAQUEL Unavailable [address] + [place] [address] R Unavailable Unavailable Unavailable WHITE, STANISLAV Unavailable [address] + [place] [address] BRICENO, RAQUEL Unavailable [address] + [place] [address] R Unavailable Unavailable Unavailable WHITE, STANISLAV Unavailable [address] + [place] [address] BRICENO, RAQUEL Unavailable [address] + [place] [address] R Unavailable Unavailable Unavailable WHITE, STANISLAV Unavailable [address] + [place] [address] BRICENO, RAQUEL Unavailable [address] + [place] [address] R Unavailable Unavailable Unavailable WHITE, STANISLAV Unavailable [address] + [place] [address] BRICENO, RAQUEL Unavailable [address] + [place] [address] R Unavailable Unavailable Unavailable WHITE, STANISLAV Unavailable [address] + [place] [address] BRICENO, RAQUEL Unavailable [address] + [place] [address] R Unavailable Unavailable Unavailable WHITE, STANISLAV Unavailable [address] + [place] [address] BRICENO, RAQUEL Unavailable [address] + [place] [address] R Unavailable Unavailable Unavailable WHITE, STANISLAV Unavailable [address] + [place] [address] BRICENO, RAQUEL Unavailable [address] + [place] [address] R Unavailable Unavailable Unavailable WHITE, STANISLAV Unavailable [address] + [place] [address] BRICENO, RAQUEL Unavailable [address] + [place] [address] R Unavailable Unavailable Unavailable WHITE, STANISLAV Unavailable [address] + [place] [address] BRICENO, RAQUEL Unavailable [address] + [place] [address] R Unavailable Unavailable Unavailable WHITE, STANISLAV Unavailable [address] + [place] [address] BRICENO, RAQUEL Unavailable [address] + [place] [address] R Unavailable Unavailable Unavailable WHITE, STANISLAV Unavailable [address] + [place] [address] BRICENO, RAQUEL Unavailable [address] + [place] [address] R Unavailable Unavailable Unavailable WHITE, STANISLAV Unavailable [address] + [place] [address] BRICENO, RAQUEL Unavailable [address] + [place] [address] R Unavailable Unavailable Unavailable WHITE, STANISLAV Unavailable [address] + [place] [address] BRICENO, RAQUEL Unavailable [address] + [place] [address] R Unavailable Unavailable Unavailable WHITE, STANISLAV Unavailable [address] + [place] [address] BRICENO, RAQUEL Unavailable [address] + [place] [address] R Unavailable Unavailable Unavailable WHITE, STANISLAV Unavailable [address] + [place] [address] BRICENO, RAQUEL Unavailable [address] + [place] [address] R Unavailable Unavailable Unavailable WHITE, STANISLAV Unavailable [address] + [place] [address] BRICENO, RAQUEL Unavailable [address] + [place] [address] R Unavailable Unavailable Unavailable WHITE, STANISLAV Unavailable [address] + [place] [address] BRICENO, RAQUEL Unavailable [address] + [place] [address] R Unavailable Unavailable Unavailable WHITE, STANISLAV Unavailable [address] + [place] [address] BRICENO, RAQUEL Unavailable [address] + [place] [address] R Unavailable Unavailable Unavailable WHITE, STANISLAV Unavailable [address] + [place] [address] BRICENO, RAQUEL Unavailable [address] + [place] [address] R Unavailable Unavailable Unavailable WHITE, STANISLAV Unavailable [address] + [place] [address] BRICENO, RAQUEL Unavailable [address] + [place] [address] R Unavailable Unavailable Unavailable WHITE, STANISLAV Unavailable [address] + [place] [address] BRICENO, RAQUEL Unavailable [address] + [place] [address] R Unavailable Unavailable Unavailable WHITE, STANISLAV Unavailable [address] + [place] [address] BRICENO, RAQUEL Unavailable [address] + [place] [address] R Unavailable Unavailable Unavailable WHITE, STANISLAV Unavailable [address] + [place] [address] BRICENO, RAQUEL Unavailable [address] + [place] [address] R Unavailable Unavailable Unavailable WHITE, STANISLAV Unavailable [address] + [place] [address] BRICENO, RAQUEL Unavailable Unavailable + ~(330 BRICENO, RAQUEL Unavailable [address] + [place] [address] R Unavailable Unavailable Unavailable WHITE, STANISLAV Unavailable Unavailable + [place] BRICENO, RAQUEL Unavailable [address] + [place] [address] R Unavailable Unavailable Unavailable WHITE, STANISLAV Unavailable Unavailable + [place] BRICENO, RAQUEL Unavailable [address] + [place] [address] R Unavailable Unavailable Unavailable White, Stanislav Unavailable . + [place] [address] BRICENO, RAQUEL Unavailable [address] + [place] [address] R Unavailable Unavailable Unavailable White, Stanislav Unavailable . + [place] [address] BRICENO, RAQUEL Unavailable [address] + [place] [address] R Unavailable Unavailable Unavailable BRICENO, RAQUEL Unavailable [address] + [place] [address] R Unavailable Unavailable Unavailable White, Stanislav Unavailable . + [place] [address] BRICENO, RAQUEL Unavailable [address] + [place] [address] R Unavailable Unavailable Unavailable BRICENO, RAQUEL Unavailable Unavailable + ~(330 BRICENO, RAQUEL Unavailable Unavailable + ~(330 Care Team Providers Name Role Phone CLINTON SOL Attending Unavailable MARIA DE JESUS MOISE JR Referring Unavailable MASCI, CLINTON A Referring Unavailable MASCI, CLINTON A Referring Unavailable MASCI, CLINTON A Referring Unavailable MOVENS, VASHTI (PA) Attending Unavailable MOVENS, VASHTI (PA) Referring Unavailable MOVENS, VASHTI (PA) Referring Unavailable MOVENS, VASHTI (PA) Referring Unavailable HIGHLAND, ALBERT B Referring Unavailable Dmitriy Pride Attending Unavailable Klaus, Angel Referring Unavailable EsparzaSherlyn Attending Unavailable Miedel, Tati Referring Unavailable UngurRosalba Attending Unavailable Miedel, Tati Primary Care Unavailable Angel Luis, Waldo Attending Unavailable Miedel, Tati Referring Unavailable Angel Luis, Waldo Attending Unavailable Angel Luis, Waldo Referring Unavailable Miedel, Tati Primary Care Unavailable Angel Luis, Waldo Attending Unavailable Angel Luis, Waldo Referring Unavailable Miedel, Tati Primary Care Unavailable Adryan Silva D.O. Attending Unavailable Angel Luis, Waldo Referring Unavailable Angel LuisWaldo Attending Unavailable Angel Luis, Waldo Referring Unavailable Miedel, Tati Primary Care Unavailable Sherlyn Esparza Consulting Unavailable Adryan Silva D.O. Attending Unavailable Waldo Hein Referring Unavailable Angel LuisWaldo Attending Unavailable Miedel, Tati Referring Unavailable Miedel, Tati Attending Unavailable Miedel, Tati Primary Care Unavailable Miedel, Tati Referring Unavailable Miedel, Tati Primary Care Unavailable Agyepong, Andrés Admitting Unavailable David Yanez Attending Unavailable Adryan Silva D.O. Consulting Unavailable AgyerobertogAndrés Admitting Unavailable AgyepongAndrés Attending Unavailable Miedel, Tati Primary Care Unavailable AgAndrés lima Consulting Unavailable Agyepong, Andrés Admitting Unavailable Adryan Silva D.O. Attending Unavailable Miedel, Tati Primary Care Unavailable Adryan Silva D.O. Consulting Unavailable Klaus, Angel Consulting Unavailable Agyerobertog, Andrés Admitting Unavailable Adryan Silva D.O. Attending Unavailable Miedel, Tati Primary Care Unavailable Adryan Silva D.O. Consulting Unavailable Klaus, Angel Consulting Unavailable Agyepong Andrés Admitting Unavailable Klaus, Angel Attending Unavailable Miedel, Tati Primary Care Unavailable Adryan Silva D.O. Consulting Unavailable Kalus, Angel Consulting Unavailable [place] Rutledge Attending Unavailable [place], Point Baker Referring Unavailable Miedel, Tati Attending Unavailable [facility] Primary Care Unavailable Agyepong, Andrés Admitting Unavailable [facility] [place], Angel Attending Unavailable [facility] Unavailable Adryan Silva D.O. Consulting Unavailable Klaus, Angel Consulting Unavailable Agyepong, Andrés Admitting Unavailable Adryan Silva D.O. Attending Unavailable [facility] Unavailable Adryan Silva D.O. Consulting Unavailable Klaus, Angel Consulting Unavailable Agyepong, Andrés Admitting Unavailable Adryan Silva D.O. Attending Unavailable [facility] Unavailable Adryan Silva D.O. Consulting Unavailable [facility] [place], Angel Consulting Unavailable Agyepong, Andrés Admitting Unavailable [facility] [place], Angel Attending Unavailable [facility] Unavailable Adryan Silva D.O. Consulting Unavailable [facility] [place], Angel Consulting Unavailable Agyepong, Andrés Admitting Unavailable [facility] [place], Angel Attending Unavailable [facility] Unavailable Adryan Silva D.O. Consulting Unavailable [facility] [place], Angel Consulting Unavailable Agyepong, Andrés Admitting Unavailable Adryan Silva D.O. Attending Unavailable [facility] Unavailable Adryan Silva D.O. Consulting Unavailable Sementi, Nicole Consulting Unavailable Agyepong, Andrés Admitting Unavailable Adryan Silva D.O. Attending Unavailable [facility] Unavailable Adryan Silva D.O. Consulting Unavailable Sementi, Nicole Consulting Unavailable Agyepong, Andrés Admitting Unavailable Sementi, Nicole Attending Unavailable [facility] Unavailable Adryan Silva D.O. Consulting Unavailable Sementi, Nicole Consulting Unavailable Agyepong, Andrés Admitting Unavailable Sementi, Nicole Attending Unavailable [facility] Unavailable Adryan Silva D.O. Consulting Unavailable Sementi, Nicole Consulting Unavailable Agyepong, Andrés Admitting Unavailable [place] Attending Unavailable [facility] Unavailable Adryan Silva D.O. Consulting Unavailable Sementi, Nicole Consulting Unavailable Agyepong, Andrés Admitting Unavailable Bisi Carcamo Attending Unavailable [facility] Primary Care Unavailable Adryan Silva D.O. Consulting Unavailable Koram, Bisi Eden Consulting Unavailable Agyepong, Andrés Admitting Unavailable [place] Hein Attending Unavailable [facility] Unavailable Adryan Silva D.O. Consulting Unavailable Koram, Bisi Eden Consulting Unavailable Agyepong, Andrés Admitting Unavailable TerNegro rojo Attending Unavailable [facility] Unavailable Adryan Silva D.O. Consulting Unavailable Terhenryky, Negro Consulting Unavailable Agyepong, Andrés Admitting Unavailable Angel LuisWaldo lewis Attending Unavailable [facility] Unavailable Adryan Silva D.O. Consulting Unavailable Tereletsky, Negro Consulting Unavailable Agyepong, Andrés Admitting Unavailable Koram, Bisi Eden Attending Unavailable [facility] Unavailable Adryan Silva D.O. Consulting Unavailable Koram, Bisi Eden Consulting Unavailable Agyepong, [place] Admitting Unavailable Waldo Hein Attending Unavailable [facility] Unavailable Adryan Silva D.O. Consulting Unavailable Koram, Bisi Eden Consulting Unavailable Agyepong, [place] Admitting Unavailable Paint[place], Point Baker Attending Unavailable [facility] Unavailable Adryan Silva D.O. Consulting Unavailable Paintsil, Point [place] Consulting Unavailable Agyepon, [place] Admitting Unavailable Waldo Hein Attending Unavailable [facility] Unavailable Adryan Silva D.O. Consulting Unavailable Paintsil, [place] Consulting Unavailable [facility] Un[facility] Paint[place], [place] Attending Unavailable [facility] Unavailable Adryan Silva D.O. Consulting Unavailable Paintsil, [place] Consulting Unavailable Agyepong, [place] Admitting Unavailable Waldo Hein Attending Unavailable [facility] Unavailable Adryan Silva D.O. Consulting Unavailable Paintsil, [place] Consulting Unavailable Agyepong, [place] Admitting Unavailable Paintsil, [place] Attending Unavailable [facility] Unavailable Adryan Silva D.O. Consulting Unavailable Paintsil, [place] Consulting Unavailable Agyepong, [place] Admitting Unavailable [place] Hein Attending Unavailable [facility] Unavailable Adryan Silva D.O. Consulting Unavailable Paintsil, [place] Consulting Unavailable Agyepong, Andrés Admitting Unavailable Paintsil, [place] Baker Attending Unavailable [facility] Unavailable Adryan Silva D.O. Consulting Unavailable Paintsil, [place] Consulting Unavailable Agyepong, Andrés Admitting Unavailable Adryan Silva D.O. Attending Unavailable [facility] Unavailable Adryan Silva D.O. Consulting Unavailable David Yanez Consulting Unavailable Agyepong, Andrés Admitting Unavailable David Yanez Attending Unavailable [facility] Unavailable Adryan Silva D.O. Consulting Unavailable David Yanez Consulting Unavailable Agyepong, Andrés Admitting Unavailable Adryan Silva D.O. Attending Unavailable [facility] Unavailable Adryan Silva D.O. Consulting Unavailable David Yanez Consulting Unavailable Agyepong, Andrés Admitting Unavailable David Yanez Attending Unavailable [facility] Unavailable Adryan Silva D.O. Consulting Unavailable David Yanez Consulting Unavailable Agyepong, Andrés Admitting Unavailable Adryan Silva D.O. Attending Unavailable [facility] Unavailable Adryan Silva D.O. Consulting Unavailable David Yanez Consulting Unavailable Agyepong, Andrés Admitting Unavailable David Yanez Attending Unavailable [facility] Unavailable Adryan Silva D.O. Consulting Unavailable David Yanez Consulting Unavailable Agyepong, Andrés Admitting Unavailable Adryan Silva D.O. Attending Unavailable [facility] Unavailable Adryan Silva D.O. Consulting Unavailable David Yanez Consulting Unavailable Agyepong, Andrés Admitting Unavailable Adryan Silva D.O. Attending Unavailable [facility] Unavailable Adryan Silva D.O. Consulting Unavailable David Yanez Consulting Unavailable Agyepong, Andrés Admitting Unavailable [facility] Unavailable Adryan Silva D.O. Consulting Unavailable David Yanez Attending Unavailable David Yanez Consulting Unavailable [facility] Unavailable Devin Braga Attending Unavailable Abdulaziz Hidalgo Attending Unavailable Adryan Silva D.O. 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, Community unspecified / Hospital J84.9(ICD-10) Repository 10/28/2018 Unknown I82.409 - Acute Miedel, Tati Active [place] embolism and Community thrombosis of Hospital unspecified deep veins Repository of unspecified lower extremity / I82.409(ICD-10) 09/15/2018 Active Interstitial pulmonary NA Active [facility] disease, unspecified / Clinic Main J84.9(ICD-10) [facility] Rep[facility] 10/22/2018 Active Emphysema, unspecified NA Active [facility] / J43.9(ICD-10) [facility] Main [facility] Repository 10/22/2018 Active Pulmonary fibrosis, NA Active [facility] unspecified / Clinic Main J84.10(ICD-10) [facility] Repository 09/14/2018 Active Secondary pulmonary BONG, 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 RAVKIRAN (RES) Clinic Other / I27.21(ICD-10) [facility] Repository 09/11/2018 Active Acute respiratory BONG, Active [facility] failure with hypoxia / RAVKIRAN (RES) Clinic Other J96.01(ICD-10) [facility] Repository 09/11/2018 Active Centrilobular BONG, Active [facility] emphysema / RAVKIRAN (RES) Clinic Other J43.2(ICD-10) [facility] Repository 09/11/2018 Active Lobar pneumonia, BONG, Active [facility] unspecified organism / RAVKIRAN (RES) Clinic Other J18.1(ICD-10) [facility] Repository 09/11/2018 Active Nicotine dependence, BONG, Active [facility] cigarettes, in RAVKIRAN (RES) Clinic Other remission / [facility] F17.211(ICD-10) Repository 09/28/2018 Unknown I50.33 - Acute on [place], Active [facility] chronic diastolic [facility] (congestive) heart Hospital failure / Repository I50.33(ICD-10) 09/28/2018 Unknown R94.31 - Abnormal [place], Active [place] electrocardiogram [facility] [ECG] [EKG] / Hospital R94.31(ICD-10) Repository 09/28/2018 Unknown 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[place], 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 / Hospital I11.0(ICD-10) Repository 09/28/2018 Unknown 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[place], 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 / Z95.1(ICD-10) Hospital Repository 09/14/2018 Unknown J98.9 - Respiratory CebuAbdulaziz wright Active [place] disorder, unspecified Community / J98.9(ICD-10) Hospital Repository 08/20/2018 Unknown R68.89 - Other general Tati Medina Active [facility] symptoms and signs / Community R68.89(ICD-10) Hospital Repository 08/20/2018 Unknown R05 - Cough / Tati Medina Active [place] R05(ICD-10) [facility] Repository 08/12/2018 Active Monoclonal gammopathy NA Active [facility] / D47.2(ICD-10) Clinic Main [facility] Repository 07/31/2018 Active 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 criteria. Please note revised GLUCOSE reference range effective 2017. LAB L501.1000 7-18 mg/dL Normal BUN 13 LAB L501.1100 0.70-1.30 mg/dL Normal CREAT,SERUM 0.89 Result Comment: The validity of the calculated GFR AND GFRAA in patients over 70 years has not been determined. Clinical correlation is essential. LAB L501.1110 >60 mL/min Normal EST GFR 88 Result Comment: Non- GFR Calc LAB L501.1115 >60 mL/min Normal EST GFR - AA 107 Result Comment: GFR Calc LAB L501.1300 10-20 RATIO Normal BUN/CRE 14.6 LAB L501.2200 8.5-10.1 mg/dL CA Normal 8.8 LAB L501.5300 136-145 mmol/L NA Normal 139 LAB L501.5600 3.5-5.1 mmol/L K Normal 4.3 LAB L501.5900 98-107 mmol/L CL Normal 102 LAB L501.6100 21.0-32.0 mmol/L Normal CO2 26.0 LAB L501.6200 5-15 Normal GAP 11 Performed By: #### L500.2500, L500.3400, L501.5200 #### [facility] [address] [place], [address] LIVER PROFILE Collected: 10/27/2018 Status: F Source: [place] 3:34 PM [facility] REPOSITORY TYPE CODE TESTS RESULT OUT OF RANGE REFERENCE UNITS LAB L501.1500 6.4-8.2 g/dL Normal T PROT 7.6 LAB L501.1800 3.2-5.0 g/dL Normal ALB 3.2 LAB L501.1950 2.2-4.2 g/dL High GLOB 4.4 LAB L501.4100 15-37 U/L Normal AST 22 LAB L501.4305 45-117 U/L Normal ALK P 65 LAB L501.4405 16-61 U/L Normal ALT 30 LAB L501.4600 0.20-1.00 mg/dL Normal T BILI 0.60 LAB L501.4700 0.00-0.30 mg/dL Normal D BILI 0.17 Performed By: #### L500.2500, L500.3400, L501.5200 #### [facility] [address] [place], [address] MAGNESIUM Collected: 10/27/2018 Status: F Source: [place] 3:34 PM [facility] REPOSITORY TYPE CODE TESTS RESULT OUT OF RANGE REFERENCE UNITS LAB L501.5200 1.6-2.6 mg/dL Low MG 1.5 Performed By: #### L500.2500, L500.3400, L501.5200 #### [facility] [address] [place], [address] OBSOLETE Observed: 10/26/2018 Status: COMPLETED Source: [place] 12:00 AM [facility] REPOSITORY Refill ([facility]) DAVID BRICENO ([id number]) 1945 M Date Time Provider Department 10/26/18 VASHTI IRELAND) [facility] During your visit today, we recorded the following information about you: Shayla Marv 10/26/2018 10:19 AM Signed Patient calling to request a refill of his xarleto. He states that he is waiting for his snf supply from [employer] and it will be at least 10 days until he gets it. He's requesting you send in a month supply to his local pharmacy. I advised it here is any issues we would give him a call back. I advised since you are not managing this i'm not sure if you will fill it. Ana Jain 10/27/2018 9:49 AM Signed Patient called back wanting a 30 day supply of xarelto sent to [facility] in [place] because he will be out in 3 days and [employer] said it will take 10-20 days for him to receive the medication. Patient would like a call when the script is sent, please advise. Vashti Ireland PA-C 10/27/2018 3:09 PM Signed I filled it since he will run out, but in the future would contact PCP. Thanks! AM Sydni Albarran 10/27/2018 4:20 PM Signed Patient was notified and voiced understanding of provider message below. Encounter closed Allergies As of Date: 10/26/2018 Noted Allergy Reaction ACEON (PERINDOPRIL ERBUMINE) 11/22/2013 14 - Other: See Comments Comments: Allergy testing AUGMENTIN (AMOXICILLIN-POT CLAVUL*03/04/2013 5 - Intolerance COLCHICINE 09/27/2013 7 - Swelling HYDROCODONE 09/27/2013 1 - Mental Status Change Comments: sweating IV CONTRAST (IODINE) 09/11/2018 7 - Swelling NAPROXEN 01/28/2013 14 - Other: See Comments Comments: Blood pressure went up, sweaty Date Reviewed: 10/22/2018 Reviewed by: Vashti Ireland (Pa) - Fully Assessed Reason for Visit: Refill Request [94] Primary Visit Diagnosis:Acute deep vein thrombosis (DVT) of other vein of lower extremity, unspecified laterality (HCC) [I82.409] Order(s):rivaroxaban (XARELTO) 20 mg tabletTake 1 tablet by mouth daily with dinner.Disp: 30 tabletRfl: 0 Prescriptions as of 10/26/2018 Sig: RIVAROXABAN 20 MG TABLET Take 1 tablet by mouth daily * ACETAMINOPHEN 325 MG CAPSULE Take 1 capsule by mouth as ne* LACTOBACILLUS ACIDOPHILUS 100* Take 1 capsule by mouth as ne* LEVOFLOXACIN 500 MG TABLET Take 500 mg by mouth once melania* OMEPRAZOLE 10 MG CAPSULE,DILSHAD* Take 20 mg by mouth once reymundo* PREDNISONE 20 MG TABLET Take 1 tablet by mouth once d* FUROSEMIDE 20 MG TABLET Take 1 tablet by mouth once d* ATORVASTATIN 20 MG TABLET Take 1 tablet by mouth once d* CARBOXYMETHYLCELLULOSE SODIUM* Use 1-2 Drops in both eyes as* ALBUTEROL SULFATE 2.5 MG/3 ML* Use 3 mL via nebulizer every * IPRATROPIUM-ALBUTEROL 0.5 MG-* Inhale 3 mL as instructed fou* PREDNISONE 20 MG TABLET Take 1 tablet by mouth once d* PHENYLEPHRINE 0.25 %-MINERAL * 1 application by RECTAL route* DOCUSATE SODIUM 100 MG CAPSULE Take 1 capsule by mouth twice* FUROSEMIDE 40 MG TABLET Take 1 tablet by mouth once d* MULTIVITAMIN-IRON 9 MG-FOLIC * Take 1 tablet by mouth once d* PANTOPRAZOLE 20 MG TABLET,DEL* Take 1 tablet by mouth DAILY * HYDROXYZINE PAMOATE 25 MG CAP* Take 25 mg by mouth at bedtim* AMLODIPINE 5 MG TABLET Take 10 mg by mouth once reymundo* CULTURELLE PROBIOTICS ORAL Take by mouth. METOPROLOL TARTRATE 25 MG TAB* twice daily. NITROGLYCERIN 0.4 MG SUBLINGU* Dissolve 0.4 mg under the ton* ASPIRIN 81 MG TABLET Take 81 mg by mouth. Problem List As Of Date 10/26/2018 Noted Resolved Hand pain [M79.643] INVALID FOR* Shoulder pain [M25.519] INVALID FOR* Knee pain [M25.569] INVALID FOR* Arthritis of knee, degenerative [M17.10] INVALID FOR* Medial meniscus tear [S83.249A] INVALID FOR* CTS (carpal tunnel syndrome) [G56.00] INVALID FOR* Synovitis of wrist [M65.9] INVALID FOR* Medial epicondylitis [M77.00] INVALID FOR* Acute respiratory failure (HCC) [J96.00] INVALID FOR* More... ILD (interstitial lung disease) (HCC) [J84.9] INVALID FOR* More... Arthritis [M19.90] INVALID FOR* More... Hypertension, essential [I10] INVALID FOR* More... MGUS (monoclonal gammopathy of unknown signific* More... DVT (deep venous thrombosis) (HCC) [I82.409] INVALID FOR* More... Secondary pulmonary arterial hypertension (HCC)*INVALID FOR* More... Abnormal CT scan, gastrointestinal tract [R93.3]INVALID FOR* More... Leukocytosis [D72.829] INVALID FOR* More... Hyponatremia [E87.1] INVALID FOR*09/16/2018 More... Hypokalemia [E87.6] INVALID FOR*09/16/2018 More... Grade I hemorrhoids [K64.0] INVALID FOR* More... 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 Medications Discontinued During This Encounter rivaroxaban (XARELTO) 20 mg tablet 10/02/2018 10/27/2018 Class: Med Update Route: ORAL Sig: Take 1 tablet by mouth daily with dinner. Disc: Reason for discontinue is not on file. Encounter Status:Closed by SYDNI ALBARRAN on 10/27/18 PROCEDURE Observed: 10/22/2018 Status: COMPLETED Source: [place] 12:05 PM [facility] REPOSITORY HNO ID: [id number] Author: Naomie Nguyen (Heat Treatment Technician) Sergey Service: (none) Author Type: Registered Resp Therapist Type: Procedures Filed: 10/22/2018 12:46 PM Note Text: RESPIRATORY THERAPY SIX MINUTE WALK TEST OXIMETRY REPORT Six Minute Walk Test for This Encounter Oxygen Device Liters FIO2 SpO2% HR Activity Feet Speed (MPH) Flag NC 4 95 79 Resting NC 4 91 90 Six Minute Walk 460 .9 NC 4 92 84 Recovery 1 minute post NC 4 96 79 Recovery 2 minute post NC 4 96 78 Recovery 3 minute post General Information Height Weight Smoking Status Pulse Oximetry Site Oximeter Pre Blood Pressure Post Blood Pressure Total Time Spent (min) 170 cm (5' 6.93) 87.8 kg (193 lb 9 oz) Ex-smoker R Middle Finger Masimo 111/70 101/72 30 _ Distance Walked (meters) Distance Walked (feet) Male Predicted Walk Distance (feet) Male Lower Limit of Normal (feet) Male % Predicted Total Duration Of The Stops (seconds) 140.21 460 1466.21 964.21 31.4 -- _ Lowest SpO2 During 6 Minute Walk Pre-Krystal Dyspnea Rating Pre-Krystal Fatigue Rating Post Krystal Dyspnea Rating Post Krystal Fatigue Rating O2 Supply Carrier Walking Assistance/Device 91 % 0.5 0 3 2 3 Wheel Walker 3 Wheel Walker Six Minute Walk Trend (Previous Encounters) None SIGNATURE: NAOMIE HENRY, JOB ANALYSIS MANAGER PATIENT NAME: David Briceno DATE: October 22, 2018 TIME: 12:05 PM _ Comments: Pt states he use 4L O2 at home The patient completed the six minute walk test with No stops. . The patient required Nasal Cannula Liters: 4 to complete the test. The distance the patient walked in six minutes is extremely reduced. This is the first time patient takes the six minute walk test. The patient perceived their dyspnea during the six minute walk test to be 3-Moderate on the modified Krystal scale. The patient perceived their fatigue during the six minute walk test to be 2-Slight on the modified Krystal scale. I have reviewed the findings and made appropriate revisions as needed. SIGNATURE: Sanjay Costa MD PATIENT NAME: David Briceno DATE: October 22, 2018 TIME: 12:46 PM OBSOLETE Observed: 10/22/2018 Status: COMPLETED Source: [place] 11:45 AM [facility] REPOSITORY Procedure (PULMOB) DAVID BRICENO ([id number]) 1945 M Date Time Provider Department 10/22/18 11:45 AM PULM [facility] PULMOB During your visit today, we recorded the following information about you: Weight Height 87.8 kg 1.7 m NAOMIE HENRY, [place] 10/22/2018 12:05 PM Signed RESPIRATORY THERAPY SIX MINUTE WALK TEST OXIMETRY REPORT Six Minute Walk Test for This Encounter Oxygen Device Liters FIO2 SpO2% HR Activity Feet Speed (MPH) Flag NC 4 95 79 Resting NC 4 91 90 Six Minute Walk 460 .9 NC 4 92 84 Recovery 1 minute post NC 4 96 79 Recovery 2 minute post NC 4 96 78 Recovery 3 minute post General Information Height Weight Smoking Status Pulse Oximetry Site Oximeter Pre Blood Pressure Post Blood Pressure Total Time Spent (min) 170 cm (5' 6.93) 87.8 kg (193 lb 9 oz) Ex-smoker R [place] Masimo 111/70 101/72 30 _ Distance Walked (meters) Distance Walked (feet) Male Predicted Walk Distance (feet) Male Lower Limit of Normal (feet) Male % Predicted Total Duration Of The Stops (seconds) 140.21 460 1466.21 964.21 31.4 -- _ Lowest SpO2 During 6 Minute Walk Pre-Krystal Dyspnea Rating Pre-Krystal Fatigue Rating Post Krystal Dyspnea Rating Post Krystal Fatigue Rating O2 Supply Carrier Walking Assistance/Device 91 % 0.5 0 3 2 3 Wheel Walker 3 Wheel Walker Six Minute Walk Trend (Previous Encounters) None SIGNATURE: NAOMIE HENRY RRT PATIENT NAME: David Briceno DATE: October 22, 2018 TIME: 12:05 PM _ Comments: Pt states he use 4L O2 at home The patient completed the six minute walk test with No stops. . The patient required Nasal Cannula Liters: 4 to complete the test. The distance the patient walked in six minutes is extremely reduced. This is the first time patient takes the six minute walk test. The patient perceived their dyspnea during the six minute walk test to be 3-Moderate on the modified Krystal scale. The patient perceived their fatigue during the six minute walk test to be 2-Slight on the modified Krystal scale. I have reviewed the findings and made appropriate revisions as needed. SIGNATURE: Sanjay Costa MD PATIENT NAME: David Briceno DATE: October 22, 2018 TIME: 12:46 PM Referring Provider: ALBERT ZALDIVAR [[id number]] Allergies As of Date: 10/22/2018 Noted Allergy Reaction ACEON (PERINDOPRIL ERBUMINE) 11/22/2013 14 - Other: See Comments Comments: Allergy testing AUGMENTIN (AMOXICILLIN-POT CLAVUL*03/04/2013 5 - Intolerance COLCHICINE 09/27/2013 7 - Swelling HYDROCODONE 09/27/2013 1 - Mental Status Change Comments: sweating IV CONTRAST (IODINE) 09/11/2018 7 - Swelling NAPROXEN 01/28/2013 14 - Other: See Comments Comments: Blood pressure went up, sweaty Date Reviewed: 10/22/2018 Reviewed by: Vashti Ireland (Pa) - Fully Assessed Reason for Visit: Spirometry [191] Primary Visit Diagnosis:Dyspnea, unspecified type [R06.00] Order(s):SIX MINUTE WALK [[id number]] Order #: [id number] Prescriptions as of 10/22/2018 Sig: LACTOBACILLUS ACIDOPHILUS 100* Take 1 capsule by mouth as ne* LEVOFLOXACIN 500 MG TABLET Take 500 mg by mouth once melania* ATORVASTATIN 20 MG TABLET Take 1 tablet by mouth once d* CARBOXYMETHYLCELLULOSE SODIUM* Use 1-2 Drops in both eyes as* ALBUTEROL SULFATE 2.5 MG/3 ML* Use 3 mL via nebulizer every * IPRATROPIUM-ALBUTEROL 0.5 MG-* Inhale 3 mL as instructed fou* RIVAROXABAN 20 MG TABLET Take 1 tablet by mouth daily * PREDNISONE 20 MG TABLET Take 1 tablet by mouth once d* PHENYLEPHRINE 0.25 %-MINERAL * 1 application by RECTAL route* DOCUSATE SODIUM 100 MG CAPSULE Take 1 capsule by mouth twice* FUROSEMIDE 40 MG TABLET Take 1 tablet by mouth once d* MULTIVITAMIN-IRON 9 MG-FOLIC * Take 1 tablet by mouth once d* PANTOPRAZOLE 20 MG TABLET,DEL* Take 1 tablet by mouth DAILY * HYDROXYZINE PAMOATE 25 MG CAP* Take 25 mg by mouth at bedtim* AMLODIPINE 5 MG TABLET Take 10 mg by mouth once reymundo* CULTURELLE PROBIOTICS ORAL Take by mouth. METOPROLOL TARTRATE 25 MG TAB* twice daily. NITROGLYCERIN 0.4 MG SUBLINGU* Dissolve 0.4 mg under the ton* ASPIRIN 81 MG TABLET Take 81 mg by mouth. Problem List As Of Date 10/22/2018 Noted Resolved Hand pain [M79.643] INVALID FOR* Shoulder pain [M25.519] INVALID FOR* Knee pain [M25.569] INVALID FOR* Arthritis of knee, degenerative [M17.10] INVALID FOR* Medial meniscus tear [S83.249A] INVALID FOR* CTS (carpal tunnel syndrome) [G56.00] INVALID FOR* Synovitis of wrist [M65.9] INVALID FOR* Medial epicondylitis [M77.00] INVALID FOR* Acute respiratory failure (HCC) [J96.00] INVALID FOR* More... ILD (interstitial lung disease) ([facility]) [J84.9] INVALID FOR* More... Arthritis [M19.90] INVALID FOR* More... Hypertension, essential [I10] INVALID FOR* More... MGUS (monoclonal gammopathy of unknown signific* More... DVT (deep venous thrombosis) ([facility]) [I82.409] INVALID FOR* More... Secondary pulmonary arterial hypertension ([facility])*INVALID FOR* More... Abnormal CT scan, gastrointestinal tract [R93.3]INVALID FOR* More... Leukocytosis [D72.829] INVALID FOR* More... Hyponatremia [E87.1] INVALID FOR*09/16/2018 More... Hypokalemia [E87.6] INVALID FOR*09/16/2018 More... Grade I hemorrhoids [K64.0] INVALID FOR* More... 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 Past medical history is significant for pulmonary fibrosis (previously has followed w/Dr Hein in [place]) - undetermined etiology, emphysema, HTN, GERD, DVT (Aug 2018) - on Xarelto prior to admission, recently diagnosed rheumatoid arthritis (not on immunosuppressive tx), MGUS, CAD S/P CABG in 2005. He is a former smoker, 40-50 pack years, quit in 1996. Patient was recently hospitalized at [facility] 09/11/2018 - 10/02/2018 with acute respiratory failure. Hospitalization was prolonged secondary to persistently high O2 requirements. He was treated with systemic steroids, bronchodilators, and antibiotics for HCAP. Patient's case was discussed at ILD conference on 10/08/2018, presented by Dr. Barker. Given acute pathology on CT chest, no previous CT chest for comparison, and no previous PFTs, no specific diagnosis was suggested. Recommendations at that time were to obtain current PFTs and repeat a CT of the chest; consider future biopsy pending findings. Today, the patient reports he is doing very well since hospital discharge. Initially discharged to SNF, and recently discharged home over past several days. Using 4L/min O2 NC continuously. Feeling well. Still has some dyspnea, cough, and wheeze intermittently, but overall he is much improved compared to hospitalization. He did complete a CXR several days ago at [facility] that noted bilateral infiltrates, and he was sent home on 7 day course of levofloxacin. He specifically denies fever/chills, body aches, or increase in SOB, cough. He is using budesonide + DuoNeb via nebulizer as prescribed. Using prednisone 20 mg daily, not noticing adverse effects. Continues on Xarelto for DVT. CURRENT MEDICATIONS: I have personally reviewed and updated medications in [facility]. IMMUNIZATIONS: Influenza: 2018 Prevnar-13: Due 05/08/2019 Pneumococcal-23: 05/08/2018 PHYSICAL EXAMINATION: VITAL SIGNS: Blood pressure 98/62, pulse 78, height 175.3 cm (5' 9), weight 86.4 kg (190 lb 6.4 oz), SpO2 100 %. O2: 4L/min O2 NC GEN'L: WDWN. Pleasant. NAD. ENT: Sclera anicteric. No visible nasal discharge. Signs of oropharyngeal thrush are not present. CARDIO: RRR. PULM: Respirations are unlabored. Diminished breath sounds bilaterally. EXT: No clubbing or cyanosis. No peripheral edema. NEURO: Alert and awake. Follows commands. Answers questions appropriately. PSYCH: Mood + affect are appropriate for situation. DATA REVIEW: I have personally reviewed all of the following data: PFT, 10/22/2018 --> moderate restriction, no significant BD response; severely reduced DLCO 6MWT, 10/22/2018 --> 460 ft, 31.4% predicted; lowest SpO2 on 4 LPM = 91% w/exertion CT chest, 09/22/2018 -->mild improvement in infiltrates; stableemphysema and fibrosis; stable borderline enlarged lymph nodes (compared to CT 09-11-18) Echo, 09/14/2018 --> unremarkable ASSESSMENT/PLAN: 1. Chronic respiratory failure with hypoxia (HCC) - ICD9: 518.83, 799.02, ICD10: J96.11 (primary diagnosis) Secondary to #2. Continue to use 4L/min O2 NC continuously. 2. 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 Severely reduced DLCO. Case discussed at ILD conference Oct [address] Barker. Recommendations as follows: Repeat CT chest now. Consider biopsy in future (pending repeat CT chest findings). Continue nebulized budesonide 0.5 mg BID and ipratropium-albuterol QID. Continue prednisone 20 mg daily until next office visit with Dr. Barker. Patient to consider pulmonary rehabilitation. - PREDNISONE 20 MG TABLET 3. Pulmonary infiltrates - ICD9: 793.19, ICD10: R91.8 Recent tx for HCAP while hospitalized at [place]; recently rx'ed levofloxacin at SNF due to infiltrates on CXR - unclear if these are worsened as compared to previous imaging. Patient does not describe any symptoms concerning for pneumonia. Repeat CT chest now. Further recommendations to follow. - CT CHEST WO IVCON 4. Rheumatoid factor positive - ICD9: 795.79, ICD10: R76.8 ?Recent dx of RA; not on any immunosuppressive tx. Consider repeat follow up with Rheumatology. 5. Acute deep vein thrombosis (DVT) of lower extremity, unspecified laterality, unspecified vein (HCC) - ICD9: 453.40, ICD10: I82.409 Dx'ed at [facility] in Aug 2018. Continue Xarelto. 6. Gastroesophageal reflux disease, esophagitis presence not specified - ICD9: 530.81, ICD10: K21.9 Continue daily PPI. 7. Interstitial pulmonary disease (HCC) - ICD9: 515, ICD10: J84.9 As above. - CT CHEST WO IVCON I have discussed the above recommendations in detail with the patient. Patient verbalizes understanding and is in agreement with plan as stated above. Return in about 6 weeks (around 12/03/2018), or if symptoms worsen or fail to improve. With Dr. Barker. Vashti Ireland PA-C PROGRESS Observed: 10/22/2018 Status: COMPLETED Source: [place] 10:36 AM [facility] REPOSITORY O ID: [id number] Author: Vashti Ireland (Pa) Service: (none) Author Type: Physician Religious Activities Director Type: Progress Notes Filed: 10/22/2018 2:09 PM Note Text: REVIEW OF SYSTEMS: 10/22/2018 10:36 AM Constitutional: (-) Fever (+) Night Sweats (-) Weight Gain (-) Weight Loss (-) Fatigue Cardiovascular: (-) Chest Pain (-) Palpitations (-) Lightheadedness (-) Swelling of Ankles Respiratory: (-) Hemoptysis (+) Shortness of Breath (+) Cough (+) Wheezing (+) Snoring Gastrointestinal: (-) Abdominal Pain (-) Diarrhea (+) Constipation (-) Nausea/Vomiting (-) Heart Burn Neurologic: (-) Headache (-) Double Vision (-) Confusion (-) Paralysis (-) Vertigo (-) Syncope Hematologic: (+) Prolonged Bleeding (+) Easy Bruising Psychiatric: (-) Depression (-) Anxiety Skin: (-) Rashes (-) Itching (-) Other Lesions Endocrine: (-) Thyroid Disorder (-) Diabetes Review of systems completed by Haleigh Carlson MA. Reviewed by Vashti Ireland PA-C. CNOV Observed: 10/22/2018 Status: COMPLETED Source: [place] 10:15 AM [facility] REPOSITORY Office Visit ([facility]) DAVID BRICENO ([id number]) 1945 M Date Time Provider Department 10/22/18 10:15 AM VASHTI IRELAND (PA) [facility] During your visit today, we recorded the following information about you: Pulse Blood pressure Weight Height 78/minute 98/62 86.4 kg 1.753 m Vashti Ireland PA-C 10/22/2018 2:09 PM Signed REVIEW OF SYSTEMS: 10/22/2018 10:36 AM Constitutional: (-) Fever (+) Night Sweats (-) Weight Gain (-) Weight Loss (-) Fatigue Cardiovascular: (-) Chest Pain (-) Palpitations (-) Lightheadedness (-) Swelling of Ankles Respiratory: (-) Hemoptysis (+) Shortness of Breath (+) Cough (+) Wheezing (+) Snoring Gastrointestinal: (-) Abdominal Pain (-) Diarrhea (+) Constipation (-) Nausea/Vomiting (-) Heart Burn Neurologic: (-) Headache (-) Double Vision (-) Confusion (-) Paralysis (-) Vertigo (-) Syncope Hematologic: (+) Prolonged Bleeding (+) Easy Bruising Psychiatric: (-) Depression (-) Anxiety Skin: (-) Rashes (-) Itching (-) Other Lesions Endocrine: (-) Thyroid Disorder (-) Diabetes Review of systems completed by Haleigh Carlson MA. Reviewed by Vashti Ireland PA-C. Vashti Ireland PA-C 10/22/2018 12:27 PM Addendum Your case was discussed at ILD conference. The consensus was that there too many acute issues going on with the CT of the chest that was taken while you were in the hospital to suggest a diagnosis. Also, there were no previous images or lung function testing available for review to assess for progression of disease. The current recommendation is to repeat a CT of the chest now, to compare to the previous imaging. With these findings, and with the pulmonary function testing completed today, we can determine if bronchoscopy with biopsy is warranted to make a more clear diagnosis. In the meantime, continue current medications: Nebulized budesonide twice daily. Nebulized ipratropium albuterol 4 times daily. Prednisone 20 mg daily until you see Dr. Barker. We will contact your [employer] company to see if budesonide is cheaper. CT of the chest before you see Dr. Barekr. Vashti Ireland PA-C 10/22/2018 2:09 PM [facility] DEPARTMENT OF PULMONARY MEDICINE ESTABLISHED PATIENT OFFICE VISIT 10/22/2018 HISTORY OF PRESENT ILLNESS: David Briceno is a 73 year old gentleman who presents today for hospital follow-up. Past medical history is significant for pulmonary fibrosis (previously has followed w/Dr Hein in [place]) - undetermined etiology, emphysema, HTN, GERD, DVT (Aug 2018) - on Xarelto prior to admission, recently diagnosed rheumatoid arthritis (not on immunosuppressive tx), MGUS, CAD S/P CABG in 2005. He is a former smoker, 40-50 pack years, quit in 1996. Patient was recently hospitalized at [facility] 09/11/2018 - 10/02/2018 with acute respiratory failure. Hospitalization was prolonged secondary to persistently high O2 requirements. He was treated with systemic steroids, bronchodilators, and antibiotics for HCAP. Patient's case was discussed at ILD conference on 10/08/2018, presented by Dr. Barker. Given acute pathology on CT chest, no previous CT chest for comparison, and no previous PFTs, no specific diagnosis was suggested. Recommendations at that time were to obtain current PFTs and repeat a CT of the chest; consider future biopsy pending findings. Today, the patient reports he is doing very well since hospital discharge. Initially discharged to SNF, and recently discharged home over past several days. Using 4L/min O2 NC continuously. Feeling well. Still has some dyspnea, cough, and wheeze intermittently, but overall he is much improved compared to hospitalization. He did complete a CXR several days ago at [facility] that noted bilateral infiltrates, and he was sent home on 7 day course of levofloxacin. He specifically denies fever/chills, body aches, or increase in SOB, cough. He is using budesonide + DuoNeb via nebulizer as prescribed. Using prednisone 20 mg daily, not noticing adverse effects. Continues on Xarelto for DVT. CURRENT MEDICATIONS: I have personally reviewed and updated medications in [facility]. IMMUNIZATIONS: Influenza: 2018 Prevnar-13: Due 05/08/2019 Pneumococcal-23: 05/08/2018 PHYSICAL EXAMINATION: VITAL SIGNS: Blood pressure 98/62, pulse 78, height 175.3 cm (5' 9), weight 86.4 kg (190 lb 6.4 oz), SpO2 100 %. O2: 4L/min O2 NC GEN'L: WDWN. Pleasant. NAD. ENT: Sclera anicteric. No visible nasal discharge. Signs of oropharyngeal thrush are not present. CARDIO: RRR. PULM: Respirations are unlabored. Diminished breath sounds bilaterally. EXT: No clubbing or cyanosis. No peripheral edema. NEURO: Alert and awake. Follows commands. Answers questions appropriately. PSYCH: Mood + affect are appropriate for situation. DATA REVIEW: I have personally reviewed all of the following data: PFT, 10/22/2018 --> moderate restriction, no significant BD response; severely reduced DLCO 6MWT, 10/22/2018 --> 460 ft, 31.4% predicted; lowest SpO2 on 4 LPM = 91% w/exertion CT chest, 09/22/2018 -->mild improvement in infiltrates; stableemphysema and fibrosis; stable borderline enlarged lymph nodes (compared to CT 09-11-18) Echo, 09/14/2018 --> unremarkable ASSESSMENT/PLAN: 1. Chronic respiratory failure with hypoxia (HCC) - ICD9: 518.83, 799.02, ICD10: J96.11 (primary diagnosis) Secondary to #2. Continue to use 4L/min O2 NC continuously. 2. 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 Severely reduced DLCO. Case discussed at ILD conference Oct [address] Barker. Recommendations as follows: Repeat CT chest now. Consider biopsy in future (pending repeat CT chest findings). Continue nebulized budesonide 0.5 mg BID and ipratropium-albuterol QID. Continue prednisone 20 mg daily until next office visit with Dr. Barker. Patient to consider pulmonary rehabilitation. - PREDNISONE 20 MG TABLET 3. Pulmonary infiltrates - ICD9: 793.19, ICD10: R91.8 Recent tx for HCAP while hospitalized at [place]; recently rx'ed levofloxacin at [facility] due to infiltrates on CXR - unclear if these are worsened as compared to previous imaging. Patient does not describe any symptoms concerning for pneumonia. Repeat CT chest now. Further recommendations to follow. - CT CHEST WO IVCON 4. Rheumatoid factor positive - ICD9: 795.79, ICD10: R76.8 ?Recent dx of RA; not on any immunosuppressive tx. Consider repeat follow up with Rheumatology. 5. Acute deep vein thrombosis (DVT) of lower extremity, unspecified laterality, unspecified vein (HCC) - ICD9: 453.40, ICD10: I82.409 Dx'ed at [facility] in Aug 2018. Continue Xarelto. 6. Gastroesophageal reflux disease, esophagitis presence not specified - ICD9: 530.81, ICD10: K21.9 Continue daily PPI. 7. Interstitial pulmonary disease (HCC) - ICD9: 515, ICD10: J84.9 As above. - CT CHEST WO IVCON I have discussed the above recommendations in detail with the patient. Patient verbalizes understanding and is in agreement with plan as stated above. Return in about 6 weeks (around 12/03/2018), or if symptoms worsen or fail to improve. With Dr. Barker. Vashti Ireland PA-C Referring Provider: SELF [200] Allergies As of Date: 10/22/2018 Noted Allergy Reaction ACEON (PERINDOPRIL ERBUMINE) 11/22/2013 14 - Other: See Comments Comments: Allergy testing AUGMENTIN (AMOXICILLIN-POT CLAVUL*03/04/2013 5 - Intolerance COLCHICINE 09/27/2013 7 - Swelling HYDROCODONE 09/27/2013 1 - Mental Status Change Comments: sweating IV CONTRAST (IODINE) 09/11/2018 7 - Swelling NAPROXEN 01/28/2013 14 - Other: See Comments Comments: Blood pressure went up, sweaty Date Reviewed: 10/22/2018 Reviewed by: Vashti Ireland (Pa) - Fully Assessed Reason for Visit: Hospital Follow Up [177] Primary Visit Diagnosis:Chronic respiratory failure with hypoxia ([facility]) [J96.11] Other Visit Diagnoses:Pulmonary emphysema with fibrosis of lung ([facility]) [J43.9, J84.10] Pulmonary infiltrates [R91.8] Rheumatoid factor positive [R76.8] Acute deep vein thrombosis (DVT) of lower extremity, unspecified laterality, unspecified vein ([facility]) [I82.409] Gastroesophageal reflux disease, esophagitis presence not specified [K21.9] Interstitial pulmonary disease (HCC) [J84.9] Chronic diastolic CHF (congestive heart failure) ([facility]) [I50.32] Pulmonary emphysema, unspecified emphysema type ([facility]) [J43.9] Order(s):CT CHEST WO IVCON [[id number]] Order #: [id number] FUTURE predniSONE (DELTASONE) 20 mg tabletTake 1 tablet by mouth once daily.Disp: 30 tabletRfl: 1 furosemide (LASIX) 20 mg tabletTake 1 tablet by mouth once daily.Disp: 30 tabletRfl: 0 Prescriptions as of 10/22/2018 Sig: ACETAMINOPHEN 325 MG CAPSULE Take 1 capsule by mouth as ne* LACTOBACILLUS ACIDOPHILUS 100* Take 1 capsule by mouth as ne* LEVOFLOXACIN 500 MG TABLET Take 500 mg by mouth once melania* OMEPRAZOLE 10 MG CAPSULE,DILSHAD* Take 20 mg by mouth once reymundo* PREDNISONE 20 MG TABLET Take 1 tablet by mouth once d* FUROSEMIDE 20 MG TABLET Take 1 tablet by mouth once d* ATORVASTATIN 20 MG TABLET Take 1 tablet by mouth once d* CARBOXYMETHYLCELLULOSE SODIUM* Use 1-2 Drops in both eyes as* ALBUTEROL SULFATE 2.5 MG/3 ML* Use 3 mL via nebulizer every * IPRATROPIUM-ALBUTEROL 0.5 MG-* Inhale 3 mL as instructed fou* RIVAROXABAN 20 MG TABLET Take 1 tablet by mouth daily * PREDNISONE 20 MG TABLET Take 1 tablet by mouth once d* PHENYLEPHRINE 0.25 %-MINERAL * 1 application by RECTAL route* DOCUSATE SODIUM 100 MG CAPSULE Take 1 capsule by mouth twice* FUROSEMIDE 40 MG TABLET Take 1 tablet by mouth once d* MULTIVITAMIN-IRON 9 MG-FOLIC * Take 1 tablet by mouth once d* HYDROXYZINE PAMOATE 25 MG CAP* Take 25 mg by mouth at bedtim* AMLODIPINE 5 MG TABLET Take 10 mg by mouth once reymundo* CULTURELLE PROBIOTICS ORAL Take by mouth. METOPROLOL TARTRATE 25 MG TAB* twice daily. NITROGLYCERIN 0.4 MG SUBLINGU* Dissolve 0.4 mg under the ton* ASPIRIN 81 MG TABLET Take 81 mg by mouth. PANTOPRAZOLE 20 MG TABLET,DEL* Take 1 tablet by mouth DAILY * Problem List As Of Date 10/22/2018 Noted Resolved Hand pain [M79.643] INVALID FOR* Shoulder pain [M25.519] INVALID FOR* Knee pain [M25.569] INVALID FOR* Arthritis of knee, degenerative [M17.10] INVALID FOR* Medial meniscus tear [S83.249A] INVALID FOR* CTS (carpal tunnel syndrome) [G56.00] INVALID FOR* Synovitis of wrist [M65.9] INVALID FOR* Medial epicondylitis [M77.00] INVALID FOR* Acute respiratory failure (HCC) [J96.00] INVALID FOR* More... ILD (interstitial lung disease) ([facility]) [J84.9] INVALID FOR* More... Arthritis [M19.90] INVALID FOR* More... Hypertension, essential [I10] INVALID FOR* More... MGUS (monoclonal gammopathy of unknown signific* More... DVT (deep venous thrombosis) ([facility]) [I82.409] INVALID FOR* More... Secondary pulmonary arterial hypertension (HCC)*INVALID FOR* More... Abnormal CT scan, gastrointestinal tract [R93.3]INVALID FOR* More... Leukocytosis [D72.829] INVALID FOR* More... Hyponatremia [E87.1] INVALID FOR*09/16/2018 More... Hypokalemia [E87.6] INVALID FOR*09/16/2018 More... Grade I hemorrhoids [K64.0] INVALID FOR* More... Pulmonary emphysema with fibrosis of lung (HCC)*INVALID FOR* Other instructions from your clinician: Your case was discussed at ILD conference. The consensus was that there too many acute issues going on with the CT of the chest that was taken while you were in the hospital to suggest a diagnosis. Also, there were no previous images or lung function testing available for review to assess for progression of disease. The current recommendation is to repeat a CT of the chest now, to compare to the previous imaging. With these findings, and with the pulmonary function testing completed today, we can determine if bronchoscopy with biopsy is warranted to make a more clear diagnosis. In the meantime, continue current medications: Nebulized budesonide twice daily. Nebulized ipratropium albuterol 4 times daily. Prednisone 20 mg daily until you see Dr. Barker. We will contact your [employer] company to see if budesonide is cheaper. CT of the chest before you see Dr. Barker. Prescriptions ordered this encounter Disp Refills Start End PREDNISONE 20 MG TABLET 30 t* 1 10/22/2018 Class: Print RX Route: ORAL Sig: Take 1 tablet by mouth once daily. FUROSEMIDE 20 MG TABLET 30 t* 0 10/22/2018 Class: Print RX Route: ORAL Sig: Take 1 tablet by mouth once daily. Disposition: Return in about 6 weeks (around 12/03/2018), or if symptoms worsen or fail to improve. Follow-up and Disposition History Recorded Encounter Status:Closed by VASHTI IRELAND on 10/22/18 NURSING PROG Observed: 10/02/2018 Status: COMPLETED Source: [place] 5:03 PM CLINIC OTHER CAMPUS REPOSITORY HNO ID: [id number] Author: Sharmila (Rn) ALEJO Alicea Service: (none) Author Type: Registered Nurse Type: Nursing Progress Note Filed: 10/02/2018 6:09 PM Note Text: Nursing Progress Note Patient Name: David Briceno Patient Location: [id number] Daily Note:10/02/18 1703 Report called to ALEJO Sifuentes at [facility]. This note was completed by: ALEJO Michelle Observed: 10/02/2018 Status: COMPLETED Source: [place] 3:18 PM CLINIC OTHER CAMPUS REPOSITORY HNO ID: [id number] Author: Cara Rai Service: Hospital Medicine Author Type: Physician Type: Discharge Summaries Filed: 10/02/2018 3:25 PM Note Text: DISCHARGE SUMMARY PATIENT NAME: David Briceno ADMISSION DATE: 09/11/2018 DISCHARGE DATE: 10/02/2018 ATTENDING PHYSICIAN: Cara Rai Code Status: Not on file Highest Readmission Risk Score: 14 The 30 day readmissions risk score is derived from an internally validated risk model which evaluates patient level characteristics, utilization history, medication orders and lab results up until the day of discharge. Patients with a score of 40 or above are considered highest risk for readmission. Specific patient level drivers will be listed at the bottom of the summary. REASON FOR HOSPITALIZATION: shortness of breath DIAGNOSIS: Active Problems: Acute respiratory failure (HCC) ILD (interstitial lung disease) (HCC) Arthritis Hypertension, essential MGUS (monoclonal gammopathy of unknown significance) DVT (deep venous thrombosis) (HCC) Secondary pulmonary arterial hypertension (HCC) Abnormal CT scan, gastrointestinal tract Leukocytosis Grade I hemorrhoids Resolved Problems: Hyponatremia Hypokalemia OPERATIONS DURING HOSPITALIZATION: None PROCEDURES DURING HOSPITALIZATION: No procedures performed HOSPITAL COURSE: Active Hospital Problems as of 10/02/2018 Noted - Resolved Hospital ILD (interstitial lung disease) (HCC) 09/14/2018 - Present Overview No etiology confirmed. Normal RVSP and RV on 08/2018 echocardiogram. Current Assessment AND Plan Pulmonology is following Patient declines [place] transfer; declines lung biopsy Continue daily oral prednisone per pulmonology recs Inhaled steroids were held. 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 - Per pulmonology, differential diagnosis of this ILD includes IPF, non specific interstitial pneumonitis (NSIP), rheumatoid lung disease, asbestosis. - BNP done to r/o HF, echocardiogram showed EF 61%, no diastolic dysfunction; is on maintenance Lasix however - CT chest showed multifocal bilateral pulmonary infiltrates on background of severe COPD/emphysema, not deemed pneumonia at this time per pulm; also showed lung nodules; repeat on 09/22 shows mild improvement infiltrates, stable emphysema - on 3-4 lt of oxygen as of now Continue prednisone 20 mg daily per pulmonology recommendations- Pulmonology will continue to follow the patient. Arthritis 09/05/2018 - Present Overview Positive Rheumatoid factor. Current Assessment AND Plan - Possible RA - Recent diagnosis, with positive RF - Not on meds, further outpatient management, rheumatology follow up Hypertension, essential 09/05/2018 - Present Current Assessment AND Plan Assessment: SBP 100s-120s PLAN: Continue current meds with Norvasc AND Lasix; monitor BP MGUS (monoclonal gammopathy of unknown significance) Unknown - Present Overview Clinton Sol DO. [facility]. Current Assessment AND Plan DVT (deep venous thrombosis) (HCC) 08/06/2018 - Present Overview Both legs Current Assessment AND Plan - Recent diagnosis of DVT at outside facility - Diagnosed 08/2018, with bilateral LE involvement per family - - LE DVT US was negative here on admission to ICU; no new symptoms - Continue Xarelto Secondary pulmonary arterial hypertension (HCC) 09/05/2018 - Present Overview RVSP 44 and normal RV on 08/2018 echocardiogram. Current Assessment AND Plan Secondary to ILd pulm on board Abnormal CT scan, gastrointestinal tract 09/15/2018 - Present Overview - Abnormal CT chest, with pancreatic abnormality noted - With noted small area of contour bulge along anterior pancreatic tail, ?exophytic pancreatic tissue vs small mass, per radiology - Nonemergent MRI pancreas with contract at some point recommended to evaluate, when able Current Assessment AND Plan Small area of contour bulge noted on the anterior pancreatic tail on 09/[address] scan done on 09/22 does not reveal the bulge Leukocytosis 09/15/2018 - Present Overview - No fever. - Procalcitonin <0.06. - Was on steroids. Monitor. Current Assessment AND Plan No evidence of infection Likely secondary to steroids. Completed course of empiric levaquin per pulmonology recs Grade I hemorrhoids 09/29/2018 - Present Current Assessment AND Plan Assessment: fresh red blood streaking on Bowel movement PLAN: Preparation H ordered. hgb stable Resolved Hospital Problems as of 10/02/2018 Noted - Resolved Hospital Hyponatremia 09/15/2018 - 09/16/2018 Hypokalemia 09/15/2018 - 09/16/2018 Transitions of Care Critical Issues: SPECIALIST FOLLOW-UP: pulmonology LABS AND PROCEDURES PENDING AT DISCHARGE: No pending results. CONSULTING TEAMS DURING HOSPITALIZATION: Pulmonology: Dr Barker PATIENT CONDITION AT DISCHARGE: Stable DISCHARGE DISPOSITION: [facility] Discharge Physical Exam: VITAL SIGNS: BP 106/66 Pulse 84 Temp 36.3 ?C (97.3 ?F) (Oral) Resp 18 Ht 175.3 cm (5' 9) Wt 84.7 kg (186 lb 11.7 oz) SpO2 99% BMI 27.58 kg/m? GENERAL: Alert, no distress, cooperative LUNGS: bilateral crackles hear CARDIAC: Normal S1 and S2; no rubs, murmurs, or gallops ABDOMEN: Abdomen soft, non-tender, BS normal, No masses or organomegaly EXTREMITIES: Extremities normal, no deformities, edema, clubbing or skin discoloration. Good capillary refill. NEURO: Grossly normal cognition, motor function, and cranial nerves III-XII INFORMATION PROVIDED TO PATIENT: yes DIET: Resume pre-hospital diet ACTIVITY: Resume pre-hospital activity WOUND/SURGICAL SITE CARE: None ALLERGIES Allergen Reactions - Aceon [Perindopril * Other: See Comments Allergy testing - Augmentin [Amoxicil* Intolerance - Colchicine Swelling - Hydrocodone Mental Status Change sweating - Iv Contrast [Iodine] Swelling - Naproxen Other: See Comments Blood pressure went up, sweaty DISCHARGE MEDICATION: Current Discharge Medication List START taking these medications albuterol (PROVENTIL) 2.5 mg Use 2.5 mg via nebulizer every 6 hours as needed for Wheezing/Shortness of Breath. atorvastatin (LIPITOR) 20 mg Take 20 mg by mouth once daily. carboxymethylcellulose sodium (CELLUVISC) 1-2 Drops Use 1-2 Drops in both eyes as needed. docusate sodium (COLACE) 100 mg Take 100 mg by mouth twice daily. furosemide (LASIX) 40 mg Take 40 mg by mouth once daily. hemorrhoid ointment (PREPARATION H) 1 application 1 application by RECTAL route as needed (Hemorrhoidal Discomfort). ipratropium-albuterol (DUONEB) 3 mL Inhale 3 mL as instructed four times daily. pantoprazole DR (PROTONIX) 20 mg Take 20 mg by mouth DAILY (6 AM). predniSONE (DELTASONE) 20 mg Take 20 mg by mouth once daily. rivaroxaban (XARELTO) 20 mg Take 20 mg by mouth daily with dinner. therapeutic multivitamin w/ iron (THERAGRAN-M) 1 tablet Take 1 tablet by mouth once daily. CONTINUE these medications which have NOT CHANGED hydrOXYzine pamoate (VISTARIL) 25 mg Take 25 mg by mouth at bedtime as needed. amLODIPine (NORVASC) 10 mg Take 10 mg by mouth once daily. Aspirin 81 mg Take 81 mg by mouth. L. RHAMNOSUS GG/INULIN (CULTURELLE PROBIOTICS ORAL) Take by mouth. METOPROLOL TARTRATE 25 mg ORAL tablet twice daily. nitroglycerin sublingual (NITROQUICK) 0.4 mg Dissolve 0.4 mg under the tongue every 5 minutes as needed. STOP taking these medications Multivitamin 1 capsule Comments: Reason for Stopping: omeprazole (PriLOSEC) 20 mg Comments: Reason for Stopping: rosuvastatin (CRESTOR) 5 mg Comments: Reason for Stopping: VITAMIN D3-VITAMIN K2 ORAL Comments: Reason for Stopping: FUTURE APPOINTMENTS: Follow Up with dr Barker Discharge Information Row Name Admission (Current) from 09/11/2018 in [facility] Medical Follow-Up Appointment [facility] for [facility] management [phone] [facility] The patient's risk for 30-day readmission is determined using the following contributing factors: Pt variables contributing to increased readmission risk: 21 Active Medication Orders 12 Most Recent BUN Result 8.6 First Resulted Calcium During Admission 1 Insurance - Medicare 1 Active Anticoagulant TIME OF CARE: Discharge Management: I personally spent greater than 30 minutes involved in the discharge management of this patient. SIGNATURE: Cara Rai MD PAGER/CONTACT #: [phone] DATE: October 02, 2018 TIME: 3:19 PM CASE MANAGEM Observed: 10/02/2018 Status: COMPLETED Source: [place] 2:18 PM CLINIC OTHER CAMPUS REPOSITORY HNO ID: [id number] Author: Didi Jimenez (Rn) ALEJO Jesus Service: Case Management Author Type: Registered Nurse Type: Care Mgt Progress Note Filed: 10/02/2018 2:26 PM Note Text: CARE MANAGEMENT DISCHARGE NOTE SERVICE DATE: 10/02/2018 SERVICE TIME: 2:18 PM LOS: 21 days Admission Date: 09/11/2018 DISCHARGE ARRANGEMENT (list agency and phone number) intermediate facility: Was an expedited discharge program used? No Provider: [facility] CAREGIVER ASSESSMENT: Caregiver is ready, willing and able to meet the patient's needs as recommended by the inter-professional team? Yes Patient's transition needs and plan for meeting these needs: self care, , son and Dtr, SNF Does the patient have an acute stroke diagnosis, or has the patient had a stroke during this admission? No HANDOFF COMMUNICATION: bedside RN Prateek, and dtr at bedside Raquel [phone] Out of town son ([phone]). TRANSPORTATION ARRANGEMENTS: new On 4L n/c Mode of Transportation: [employer]AN Transportation Agency and Phone #: [facility] ( [facility] ) [phone]. Date of Trip: 10/02/18 Type of Service: BLS Non-emergency Is Patient Medicaid Pending: Yes Discussion of financial coverage occurred with Patient, Spouse and Family . Compliance Lead Location: [address] Destination: [facility] Financial Care Management Responsibility: None Estimated Charge: 0 Approving Cardroom Manager: 0 ADDITIONAL CONTACT RESOURCES: Discharge Information Row Name Admission (Current) from 09/11/2018 in [facility] Medical Follow-Up Appointment [facility] for chronic symptom management [phone] [facility] IM given yesterday SIGNATURE: Didi Jesus RN PATIENT NAME: David Briceno DATE: October 02, 2018 TIME: 2:18 PM PAGER/CONTACT #: [phone] CASE MANAGEM Observed: 10/02/2018 Status: COMPLETED Source: [place] 1:58 PM CLINIC OTHER CAMPUS REPOSITORY HNO ID: [id number] Author: Didi Villagomez) ALEJO Jesus Service: Case Management Author Type: Registered Nurse Type: Care Mgt Progress Note Filed: 10/02/2018 1:59 PM Note Text: CARE MANAGEMENT PROGRESS NOTE SERVICE DATE: 10/02/2018 SERVICE TIME: 1:58 PM LOS: 21 days EMR reviewed. [facility] sent updates. Waiting PRECERT. SIGNATURE: Didi Jesus RN PATIENT NAME: David Briceno DATE: October 02, 2018 TIME: 1:58 PM PAGER/CONTACT #: [phone] BASIC METABOLIC PANL Collected: 10/02/2018 Status: F Source: [place] 5:46 AM CLINIC OTHER CAMPUS REPOSITORY TYPE CODE TESTS RESULT OUT OF REFERENCE UNITS RANGE LAB GLU 74-99 mg/dL Glucose 90 Result Comment: The [place] Diabetes Association (ADA) provides guidance for cutoff values for fasting glucose and random glucose. The ADA defines fasting as no caloric intake for at least 8 hours. Fas ting plasma glucose results between 100 to 125 mg/dL indicate increased risk for diabetes (prediabetes). Fasting plasma glucose results greater than or equal to 126 mg/dL meet the criteria for diagnosis of diabetes. In the absence of unequivocal hyperglycemia, results should be confirmed by repeat testing. In a patient with classic symptoms of hyperglycemia or hyperglycemic crisis, random plasma glucose results greater than or equal to 200 mg/dL meet the criteria for diagnosis of diabetes. Reference: Standards of Medical Care in Diabetes 2016, [place] Diabetes Association. Diabetes Care. 2016.39(Suppl 1). LAB BUN 9-24 mg/dL BUN 12 LAB CRET 0.73-1.22 mg/dL Creatinine Low 0.67 LAB NA 136-144 mmol/L Sodium 141 LAB K 3.7-5.1 mmol/L Potassium Low 3.2 LAB CL 97-105 mmol/L Chloride 101 LAB CO2 22-30 mmol/L CO2 29 LAB AGAP 9-18 mmol/L Anion Gap 11 LAB CA 8.5-10.2 mg/dL Calcium, Total 8.5 LAB GFRAA eGFR- Amer. >60 LAB GFRNAA . eGFR-All Other Races >60 Result Comment: eGFR (Estimated GFR) Units of measure: mL/min/1.73 meters squared eGFR is derived from the reexpressed MDRD Study equation using the following parameters: serum creatinine, age, gender and race. The creatinine assay has been calibrated to be traceable to IDMS. An eGFR <60 mL/min/1.73m2 for >3 months is consistent with chronic kidney disease. Refer to KDOQI guidelines for clinical interpretation. In patients with unstable renal function, e.g. those with acute kidney injury, the eGFR may not accurately reflect actual GFR. Performed By: #### DAPHNIE, CBCDIF #### [facility] [address] [facility] [phone] CBC AND DIFFERENTIAL Collected: 10/02/2018 Status: F Source: [place] 5:46 AM [facility] OTHER [place] REPOSITORY TYPE CODE TESTS RESULT OUT OF REFERENCE UNITS RANGE LAB WBC 3.70-11.00 k/uL WBC High 17.53 LAB RBC 4.20-6.00 m/uL RBC 4.41 LAB HGB 13.0-17.0 g/dL Hemoglobin 13.0 LAB HCT 39.0-51.0 % Hematocrit 41.3 LAB MCV 80.0-100.0 fL MCV 93.7 LAB MCH 26.0-34.0 pG MCH 29.5 LAB MCHC 30.5-36.0 g/dL MCHC 31.5 LAB RDWCV 11.5-15.0 % RDW-CV High 16.7 LAB PLTCT 150-400 k/uL Platelet Count 157 LAB MPV 9.0-12.7 fL MPV 9.8 LAB NEUT % Neut% 68 LAB ALYMP % Lymph% 22 LAB AMONO % [place]% 5 LAB AEOS % Eosin% 1 LAB AMYELO 0 % Myelo% High 4 LAB ABNEUT 1.70-7.00 k/uL Abs Neut High 11.92 LAB ABLYM 0.90-4.00 K/uL Abs Lym 3.86 LAB ABMONO <0.87 k/uL Abs [place] High 0.88 LAB ABEOS <0.46 K/uL Abs Eosin 0.18 LAB ANIIMI Anisocytosis Present LAB PLTEST Platelet Estimate Platelet estimate adequate Performed By: #### DAPHNIE, CBCDIF #### [facility] [address] [facility] [phone] CNCO Observed: 10/02/2018 Status: COMPLETED Source: [place] 12:[address] [facility] C[facility]US REPOSITORY Letter Text October 02, 2018 David Briceno [phone] [facility] [id number] Dear Mr. Briceno, The nurses and staff of [facility] hope this letter finds you feeling well and progressing in your recovery. Our staff would like to thank you for trusting and choosing us for your health care needs. It was an honor for us to provide your nursing care. We know that placing our Patients First and maintaining a culture of continuous improvement each and every day, are essential to the success of our organization. I hope your stay with us has been positive. We want to hear from you. If you have any comments, questions or concerns about your hospital stay, please feel free to contact me, Haleigh Thakur RN ([phone]) or email me at, [email or web address] Additionally, you will receive a survey in the mail asking you to rate the care you received while in the hospital. Please take the time to complete and send back the survey, as it is essential to our continued success. I personally review all the results and would appreciate your feedback. Thank you in advance for your participation and thank you for choosing the [facility] for your health needs. Sincerely, Nurse Cardroom Manager: Haleigh Thakur RN ([phone]) [facility] Unit: [address] [place] [address] Observed: 10/01/2018 Status: COMPLETED Source: [place] 1:49 PM CLINIC OTHER CAMPUS REPOSITORY HNO ID: [id number] Author: Mag (Ot/LMegan Escamilla Service: Occupational Therapy Author Type: Occupational Therapist Type: Therapy (PT/OT/Speech/Resp) Filed: 10/01/2018 2:07 PM Note Text: Occupational Therapy Treatment SERVICE DATE: 10/01/2018 SERVICE TIME: 1302 to 1333 ROOM: [id number] Recommended Discharge Disposition: Subacute/SNF Recommended Discharge Disposition Comments: Patient is functioning below baseline and would benefit from continued therapy at discharge to increase ease independence and safety with ADLS and functional mobility tasks Justification For Post Acute Needs: Cognition intact;Good family support;Living the community premorbidly;Motivated;Willing to participate;Anticipate that patient will require daily (5x/wk) skilled therapy in a post-acute facility setting at the time of acute hospital discharge OT Recommendations to Nursing: ADL?s in chair;To Bathroom for ADL?s /and or Toileting;OOB for meals;Edge of bed ADL?s;Transfer to Chair;With assist of 1 person;Utilize bed in Chair Position (monitor vitals, reinforce energy conservation) Equipment: Wheeled Walker, gait belt OT 6 Clicks Score: 22 Precautions/Activity Restrictions: Fall Risk;Lines/Tubes/Drains Precaution/Activity Restriction Comments: per MD note, target SpO2 >90% ASSESSMENT: Patient demonstrates increased functional activity tolerance this date (see below for vitals), however, continues to be functioning below baseline and requires close monitoring of vitals to ensure safe progression during functional tasks. Pt's family present throughout session and appear very supportive and attentive. Pt remains functioning below baseline, is motivated to return to PLOF/home and requires continued short-term skilled OT services to address functional deficits and increase safety, ease and independence during ADLs, leisure and functional mobility. Patient Disposition at Start of Session: OOB in Chair;Call [place] in Reach;Family Present Patient Disposition at End of Session: Supine in Bed;Call [place] in Reach;Family Present (pt declining SCDs (RN aware)) Tolerated Full Session (however, fatigued and SOB post-treatment) Occupational Therapy Problem List: Impaired Self Care;Decreased Activity Tolerance;Decreased Strength;Functional Mobility Impairment;Balance Impaired Patient /Caregiver Goals: Go To Rehab, Walk, Return to PLOF Goals for Plan of Care: Able to perform HEP with: Modified Independent (for functional BUE strengthening and activ tolerance) Grooming with: Supervision (at sink) Lower Body Dressing with: Supervision Chair Transfer with: Supervision Toilet Transfer with: Supervision Tolerate (minutes of functional activity): 5 (with SpO2 >90%) Functional Activity with: Supervision Demonstrate Competence With Education with: Independent (for use of energy conserv techniques) Progress Toward Goals: Progressing as expected Rehab Potential: Good PLAN: Treatment Frequency (times per week): 2 Current admission Treatment Interventions: Education;Self Care / Home Management;Energy Conservation Training;Strengthening;Functional Mobility Training;Balance Training Plan of Care developed with: Patient TREATMENT INTERVENTIONS: Therapy Diagnosis: Decreased activities of daily living (ADL) Interventions Provided: Self Skilled Nursing Management (30631);Therapeutic Activity (31221) Therapeutic Activity (18106) Treatment Minutes: 8 1 unit Skilled Intervention(s): Pt educated in benefits of use of FWW versus no AD during functional mobility. Instructed and verbal cues and facilitated pt in sit to stand technique with proper hand placement and body positioning at edge of bedside chair. Pt instructed and verbally cued in proper posture upon standing at walker level. Pt instructed and verbally cued in proper posture, staying within frame of walker during functional mobility; facilitated with line mgmt. Instructed, verbally cued and facilitated pt in stand to sit technique with lower extremities touching bed,bringing walker back to surface of bed and reaching back for surface. Pt instructed in safe technique for sit to supine. Pt educated in benefits of bed in chair position and benefits/importance of SCDs/ankle pumps. Self Skilled Nursing Management (44392) Treatment Minutes: 17 1 unit Skilled Intervention(s): Pt educated in role of OT. Pt educated in importance of out of bed activity (active participation in daily care, sitting in chair for meals and throughout day if asymptomatic) for rehabilitation and to prevent functional decline and other negative effects of immobility. Pt facilitated in goal formation and educated in importance of self-advocacy with goal formation and treatment interventions at rehab. Pt educated and cued in assessing self for dizziness/lightheadedness upon changes in position and to allow time for body to accommodate to changes in position. Pt and pt's family educated in various types of DME/adaptive equipment/home modifications that may be beneficial for home-going: Use of shower chair, obtaining toilet/shower grab bars, setting up chair in bathroom for seated rest breaks, hospital/adjustable bed/wedge pillow (as pt reports unable to sleep w/HOB flat). Pt educated in importance of mental well-being and benefits of requesting out of hospital room time (discussed with pt and RN of possibility of nursing taking pt out of room in w/c). Pt educated in benefits/importance of progression to use bathroom versus bedside commode. Pt educated in pros/cons of use of lift chair, as pt/spouse report of pt use at home. Vitals and symptoms monitored throughout session to ensure safe progression of functional activities; pt verbally cued to take seated rest break at EOB rather than immediate return to supine to allow for pursed lip breathing while sitting upright. Pt educated in importance of use of call button for all needs and to call and wait for nursing/therapist assistance for all out of bed/chair activity. Education in OT POC, parameters for safe home-going and discharge recommendation with rationale. RN and CM notified of pt status and recommendations. Total Timed Code Treatment Minutes: 25 Total Treatment Time (minutes): 31 FUNCTIONAL G CODE: OT 6 Clicks Score: 22 (10/01/18 1302) Self Care Current Status (G8987): CH (09/28/18 1140) Self Care Goal Status (G8988): (09/28/18 1140) Based on clinical assessment and the score on the 6 Clicks Functional Assessment Tool, the G code and corresponding severity modifiers are documented above. SUBJECTIVE: Current Hospital Course: Chart reviewed; Patient weaned down to 4L/min nasal cannula. Awaiting precert for SNF. Reason for Occupational Therapy Consult: Patient presents to the ED on 09/11/18 with SOB, admitted to ICU. Transferred to regular nursing floor on 09/16/18. Referred to OT for safety assessment. Relevant Past Medical History: CAD, COPD, CABG, GERD, RA, DVT 08/2018, pulmonary fibrosis, emphysema, Asbestos exposure, HTN, ND, prostate CA Patient Report: Patient requesting to return to supine after sitting up in chair for lunch. I'm just waiting on rehab. Patient reports of the following goals: Being able to walk, walk outside, be independent with daily care. Patient's spouse and dtr present throughout session with patient's permission. Home Environment Patient Lives With: Spouse (Lives in a one level home with ) Assistance Available: 24 Hour Entry To Home: Stairs;With Rail Number Of Stairs Into Home: 10 Number Of Stairs To Bed/Bath: 0 Tub/Shower Type: walk-in shower and tub/shower combo Laundry: completes Equipment Owned: Standard Walker;Wheeled Walker; Lift Chair, (access to shower chair ) Prior Functional Level: Within Functional Limits Prior Functional Level Comments: Prior to Pneumonia in April pt was independent; recently pt uses a FWW OBJECTIVE: Cognition/Communication Deficits Responsiveness: Alert;Awake Follows Commands: 3-step Commands CURRENT FUNCTIONAL STATUS: Current Activities of Daily Living Assist Level Feeding Independent (lunch tray in front of patient end of session) Not performed this date Grooming Stand By Assistance (per clinical judgment at sink) Bathing Upper Body Supervision (per clinical judgment) Bathing Lower Body Stand By Assistance (per clinical judgment seated) Dressing Upper Body Supervision (per clinical judgment) Dressing Lower Body Contact Guard Assistance (during standing portion of task per clinical judgment ) Toileting Contact Guard Assistance (during standing portion of task per clinical judgment) Functional Mobility Assist Level Rolling Supine to Sit Sit to Supine Supervision (HOB elevated) Scooting Sit to Stand Contact Guard Assistance (from bedside chair to walker level) Stand to Sit Contact Guard Assistance (walker level to bed) Bed to Chair Contact Guard Assistance Stand Pivot Gait Belt Not performed this date Toilet/Commode Functional Mobility Contact Guard Assistance (from bedside chair to doorway to bed) Wheeled Walker -Gait belt used during functional mobility and transfers for optimal safety Balance: Static Sitting;Dynamic Sitting;Dynamic Standing Static Sitting Balance: Independent Dynamic Sitting Balance: Supervision (at EOB) Dynamic Standing Balance: Contact Guard Assistance Activity Tolerance: Standing Activity Standing Activity: functional mobility to/from doorway Standing Activity Tolerance (in minutes): (denied lightheadedness/dizziness) Vital Signs Pre Assessment: O2 Equipment, SpO2, Heart Rate Pre Heart Rate: 105 Pre SpO2: 95 Pre O2 Equipment: Nasal Cannula Pre Oxygen Requirement: 4L/min Intra Assessment 1: SpO2 Intra 1, Heart Rate Intra 1 Intra Heart Rate 1: 121 Intra SpO2 1: 93 Intra Assessment 2: Heart Rate Intra 2, SpO2 Intra 2 Intra Heart Rate 2: 110 Intra SpO2 2: 89 (to 94) Post Assessment: SpO2 Post Post Heart Rate: 94 Please see discipline specific clinical documentation flowsheet for complete details for this therapy evaluation/treatment. SIGNATURE: Mga Escamilla OT/Arminda PATIENT NAME: David Briceno DATE: October 01, 2018 TIME: 1:49 PM CONSULT PROG Observed: 10/01/2018 Status: COMPLETED Source: [place] 1:07 PM [facility] OTHER CAMPUS REPOSITORY HNO ID: [id number] Author: Rosy Barker Service: Pulmonary Disease Author Type: Physician Type: Consult Progress Note Filed: 10/01/2018 3:10 PM Note Text: [facility] [place], 10/01/2018: INTERVAL HISTORY: Much less short of breath than at admission. Little cough. No pleuritic chest pain, hemoptysis, purulent sputum. ROS: No fever, rigors. Appetite better. Generalized weakness, but walked 25 feet with O2. - PT and OT consider him good candidate for rehab stay. Waiting on Pre-certification. No emesis, diarrhea. Otherwise negative. Allergies and MAR reviewed today. BP 108/75 Pulse 100 Temp (Src) 97.7 (Oral) Resp 20 Ht 5' 9 (1.75m) Wt 183 lb 4.8 oz (83.1kg) SpO2 94% BMI 27.06 kg/(m2). DATA REVIEW: Component 09/26/2018 c-ANCA Fluorescence Negative p-ANCA Fluorescence Negative Proteinase-3 Antibody <0.2 Myeloperoxidase Antibody (MPO) <0.2 Interpretation (ANCA) Equivocal staining seen on the screening ethanol slide but negative results on . . . Staff Review (ANCA) Reviewed by Chuck Watson MD ([id number]) JEAN PAUL Positive (A) JEAN PAUL Titer 1:160 (A) JEAN PAUL Pattern Atypical speckled Rheumatoid Factor 37 (H) Alpha 1 Antitrypsin 134 IMPRESSION AND RECOMMENDATIONS: 1. Chronic hypoxemic respiratory failure, improving, spO2 good on 4 L/min NC. 2. 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 Rheumatoid arthritis recently diagnosed, Aug 2018; may account for abnormal Rheumatoid Factor and JEAN PAUL, though these are sometimes false positive in Idiopathic Pulmonary Fibrosis. 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 - Continue O2, targeting spO2 >90%. - Prednisone 20 mg daily. - Ipratropium/Albuterol via nebulizer 3-4 times daily. Stop nebulized Budesonide. - [facility] [place] interstitial lung disease conference canceled this AM. Rakan's case to be discussed 10/08/2018. Further recommendations for evaluation and Rx to follow that discussion. 3. DVT Aug 2018 at outside hospital. - Continue Xarelto. 4. CAD, CABG 2005. 5. Former tobacco user (40-50 pack years). ? I addressed the questions of the patient and his spouse and daughter at bedside, and they expressed understanding and acceptance of my answers. Rosy Barker MD, [facility] Medical Office [place] [address] P: [phone] F: [phone] CASE MANAGEM Observed: 10/01/2018 Status: COMPLETED Source: [place] 12:19 PM [facility] OTHER CAMPUS REPOSITORY HNO ID: [id number] Author: Didi Jimenez (Rn) ALEJO Jesus Service: Case Management Author Type: Registered Nurse Type: Care Mgt Progress Note Filed: 10/02/2018 8:41 AM Note Text: CARE MANAGEMENT PROGRESS NOTE SERVICE DATE: 10/01/2018 SERVICE TIME: 12:19 PM LOS: 20 days IM letter given to New, and dtr on 10/01/18. Family is in agreement to [facility] via [facility]. Pt on new 4L n/c. Waiting on Precert. Patient and family agreed to [facility] for dc needs. They asked if denial to SNF what then. Reassure them that the CM team will assist in dc needs. SIGNATURE: Didi Jesus RN PATIENT NAME: David Briceno DATE: October 01, 2018 TIME: 12:19 PM PAGER/CONTACT #: [phone] THERAPY NT Observed: 10/01/2018 Status: COMPLETED Source: [place] 11:43 AM CLINIC OTHER CAMPUS REPOSITORY HNO ID: [id number] Author: Aurelia Briseno Service: Physical Therapy Author Type: Commercial Fisher Type: Therapy (PT/OT/Speech/Resp) Filed: 10/01/2018 11:49 AM Note Text: Attestation signed by Alejandra Warren at 10/05/2018 4:02 PM I reviewed and agree with the assessment as documented above. SIGNATURE: Alejandra Warren, PT DATE: October 05, 2018 TIME: 4:02 PM Physical Therapy Treatment SERVICE DATE: 10/01/2018 SERVICE TIME: 1045 to 1120 ROOM: [id number] Recommended Discharge Disposition: Subacute/SNF Recommended Discharge Disposition Comments: Pt would benefit from further skilled therapy to address all functional limitations to allow pt to return to [facility]. Anticipate pt will progress to home with home PT with 24 hour assist/supervision. Pt will need to be able to tolerate activity while keeping SPO2 sats above 88%. Justification For Post Acute Needs: Anticipated community discharge;Cognition intact;Good family support;Good premorbid functional status;Living the community premorbidly;Motivated;Medically complex;Willing to participate;Anticipate that patient will require daily (5x/wk) skilled therapy in a post-acute facility setting at the time of acute hospital discharge Anticipated Discharge Needs: Family Training;Physical Assist at Home;Supervision at Home Physical Assist at Home for: Cleaning;Laundry;Meals;Medication Management;Stairs;Safety;Self Care;Shopping;Transportation Supervision at Home due to: Other: See Comment (for safety) Recommended Discharge Equipment: To Be Determined PT Recommendations to Nursing: Ambulate with device;To bathroom;In halls;Transfer to/from chair;OOB for Meals;Sit at edge of bed;With assist of 1 person Device: Wheeled Walker PT 6 Clicks Score: 19 Precautions/Activity Restrictions: Fall Risk;Lines/Tubes/Drains Precaution/Activity Restriction Comments: per MD note, target SpO2 >90% ASSESSMENT : Patient pleasant and highly motivated to participate with PT. Patient successfully able to tolerate gait training and seated exercises. Patient SOB with activity and requires extended seated rest breaks and cues for diaphragmatic breathing for recovery. SPO2 decreased to 86% with gait training however, remained >88% with all other mobility. Patient noted to be maximally fatigued at end of session. Patient's daughter and spouse present and supportive throughout treatment. At this time, patient would benefit from SNF post acute stay in order to improve activity tolerance, strength, balance and further safety education. Patient Disposition at Start of Session: OOB in Chair;Call [place] in Reach;Family Present Patient Disposition at End of Session: OOB in Chair;Call [place] in Reach;Family Present Tolerated Full Session (however, maximally fatigued at end of session) Without limitations Physical Therapy Problem List: Decreased Activity Tolerance;Decreased Strength;Functional Mobility Impairment;Balance Impaired Patient /Caregiver Goals: Go To Rehab Goals for Plan of Care: Able to perform HEP with: Independent Transfer supine to/from sit with: Independent Transfer sit to/from stand with: Supervision Ambulate with: Stand By Assistance (keeping SPO2 sats above 88% ) Distance: 100-150 Device: Wheeled Walker (LRAD ) Ambulate up and down steps with: Stand By Assistance Number of steps: 10 Device: Rail;Hand Held Assist Car transfer with: Supervision Progress Toward Goals: Progressing slower than expected Due To: Acuity of illness Rehab Potential: Good PLAN: Treatment Frequency (times per week): 4 Current admission Treatment Interventions: Education;Energy Conservation Training;Strengthening;Functional Mobility Training;Balance Training;Neuromuscular Re-education Plan of Care developed with: Patient TREATMENT INTERVENTIONS: Therapy Diagnosis: Reduced mobility-other;General symptoms and signs-other Interventions Provided: Therapeutic Exercise (90730);Therapeutic Activity (45730);Gait Training (13647) Therapeutic Exercise (50773) Treatment Minutes: 15 1 unit Skilled Intervention(s): Instruction in therapeutic exercise for bilateral AP, GS with 5 second hold, heel slides, LAQ, slightly resisted isometric hip abduction/addduction, Hip flexion x 15 reps each Patient completes x 10 reps of consecutive sit/stand transfers for functional quadriceps strengthening Verbal and tactile cuing provided for correct performance of exercises Cues for diaphragmatic breathing, rest breaks provided in between each set Re-emphasized the importance of frequent performance of anti-embolic exercises Therapeutic Activity (01211) Treatment Minutes: 8 0 units Skilled Intervention(s): Instruction in sit to stand technique with proper hand placement and body positioning at edge of bed/chair Instruction in stand to sit technique with lower extremities touching chair/bed and reaching back for surface SPO2 monitored throughout, patient required extended seated rest breaks for recovery. Gait Training (94764) Treatment Minutes: 12 1 unit Skilled Intervention(s): Instruction in sequencing, gait pattern, reciprocating steps Instruction in correction of gait deviations, cues for upright posture, safety, diaphragmatic breathing, safe pacing Instruction in use of equipment, cues for sequence and pattern Gait belt in place for safety with all functional mobility. RN aware of patient status. Discussed with patient sitting up for no longer than 1 hr and calling for assistance 100% of the time. Total Timed Code Treatment Minutes: 35 Total Treatment Time (minutes): 35 FUNCTIONAL G CODE: PT 6 Clicks Score: 19 (10/01/18 1120) Mobility: Walking and Moving Around Current Status (G8978): CK (09/13/18804) Mobility: Walking and Moving Around Goal Status (G8979): CJ (09/13/18804) Based on clinical assessment and the score on the 6 Clicks Functional Assessment Tool, the G code and corresponding severity modifiers are documented above. SUBJECTIVE: Current Hospital Course: Chart reviewed and no significant medical updates relevant to therapy were noted Reason for Physical Therapy Consult : safety assessment Relevant Past Medical History: CAD, COPD, CABG, GERD, RA, DVT 08/2018, pulmonary fibrosis, emphysema, Asbestos exposure, HTN, ND, prostate CA Patient Report: Patient agreeable and motivated to participate in PT. Patient states, We are overwhelmed. I cannot go home and we pick a facility just to find out they are not covered. Patient appropriate for PT per RNCaitie. Home Environment Patient Lives With: Spouse (Lives in a one level home with ) Assistance Available: 24 Hour Entry To Home: Stairs;With Rail Number Of Stairs Into Home: 10 Number Of Stairs To Bed/Bath: 0 Tub/Shower Type: walk-in shower and tub/shower combo Laundry: completes Equipment Owned: Standard Walker;Wheeled Walker Prior Functional Level: Within Functional Limits Prior Functional Level Comments: Prior to Pneumonia in April pt was independent; recently pt uses a FWW OBJECTIVE: CURRENT FUNCTIONAL STATUS: Current Functional Mobility Assist Level Additional Information Rolling Supine to Sit Other: See Comment (patient in bed side chair upon arrival) Sit to Supine Other: See Comment (patient in bed side chair at end of treatment) Scooting Independent (forward/retro in chair) Sit to Stand Contact Guard Assistance (with FWW) x10 consecutive sit/stand trials, x2 additional transfers Stand to Sit Contact Guard Assistance (with FWW) Bed to Chair Toilet/Commode Gait Contact Guard Assistance Gait Device: Wheeled Walker Gait Distance (feet): 40'x1 Stairs (unsafe for progression) Curb Step Car Transfer General Gait Deviations: Dipti decreased;Step length decreased;Flexed trunk posture (SOB with increased distance) Balance: Static Sitting;Dynamic Sitting;Static Standing;Dynamic Standing Static Sitting Balance: Independent (in chair) Dynamic Sitting Balance: Supervision (in chair) Static Standing Balance: Contact Guard Assistance (with FWW) Dynamic Standing Balance: Contact Guard Assistance (with FWW) JH-HLM: 7: Walk 25 feet or more Please see discipline specific clinical documentation flowsheet for complete details for this therapy evaluation/treatment. SIGNATURE: Aurelia Briseno PTA PATIENT NAME: David Briceno DATE: October 01, 2018 TIME: 11:43 AM PROGRESS Observed: 10/01/2018 Status: COMPLETED Source: [place] 11:11 AM CLINIC OTHER CAMPUS REPOSITORY HNO ID: [id number] Author: Cara Rai Service: Hospital Medicine Author Type: Physician Type: Progress Notes Filed: 10/01/2018 11:12 AM Note Text: SERVICE DATE: 10/01/2018 SERVICE TIME: 11:11 AM HOSPITAL MEDICINE PROGRESS NOTE NIGHT AND WEEKEND COVERAGE: Nights: Please contact pager [phone]. HPI SUBJECTIVE Interval Events: No Change, patient is frustrated that he has not been abl e to find a place to go after discharge [place] OBJECTIVE BP 91/63 Pulse 104 Temp (Src) 97.3 (Oral) Resp 18 Ht 5' 9 (1.75m) Wt 183 lb 4.8 oz (83.1kg) SpO2 90% BMI 27.06 kg/(m2). Physical Exam Performed: GENERAL: GENERAL APPEARANCE NCCC: well appearing, alert and in no acute distress HEART: HEART [facility]: regular rate and rhythm, no murmer, gallop or rub, normal, S1, S2, no lifts, heaves, or thrills, PMI not displaced LUNGS: LUNGS [facility]: clear to percussion and auscultation, Inspiratory crepitations Yes ABDOMEN: ABDOMEN: Soft, nontender, bowel sounds normal, no palpable organomegaly, no bruits. EXTREMITY: EXTREMITY EXAM: Normal exam of the extremities. No clubbing, cyanosis, or edema. Lines, Drains, and Airways Line Peripheral 09/11/18 Admission to Hospital Short Left Forearm 20 Gauge 20 days Reviewed lines, drains, AND airways. Need to be continued for iv acess Medications: Reviewed Diagnostic tests reviewed: CBC Recent Labs 10/01/18 0510 WBC 19.11* RBC 4.45 HB 13.1 HCT 41.3 MCV 92.8 MCH 29.4 MCHC 31.7 RDWCV 16.6* PLT 151 MPV 9.8 NEUTP 62 LYMPHP 23 MONOP 6 ABSNEUT 11.85* ABSLYM 4.40* ABSMONO 1.15* CMP Recent Labs 10/01/18 0510 NA 142 K 3.8 CHLOR 100 CO2 32* GLUC 87 BUN 14 CREAT 0.77 CA 8.8 ASSESSMENT AND PLAN Assessment AND Plan, Most Recent Note from ALL Problems our Service Addressed Cardiovascular Secondary pulmonary arterial hypertension (HCC) Secondary to ILd pulm on board Hypertension, essential Assessment: SBP 100s-120s PLAN: Continue current meds with Norvasc AND Lasix; monitor BP Pulmonary ILD (interstitial lung disease) (HCC) Pulmonology is following Patient declines [facility] [place] transfer; declines lung biopsy On inhaled steroids per pulmonology pulmnolology to discuss the patient case at ILd conference today. 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 - Per pulmonology, differential diagnosis of this ILD includes IPF, non specific interstitial pneumonitis (NSIP), rheumatoid lung disease, asbestosis. - BNP done to r/o HF, echocardiogram showed EF 61%, no diastolic dysfunction; is on maintenance Lasix however - CT chest showed multifocal bilateral pulmonary infiltrates on background of severe COPD/emphysema, not deemed pneumonia at this time per pulm; also showed lung nodules; repeat on 09/22 shows mild improvement infiltrates, stable emphysema - On aerosols, weaning O2 as able, high flow to NC now, attempts to wean have been difficult - Was on prednisone - Solu-Medrol brief course now per pulmonology, back on prednisone now - Per pulmonology, who is on consult, was to have further evaluation and treatment options discussed at [facility] Interdisciplinary ILD conference but they were unable to connect this week. - LTAC placement denied x 2- family appealing third appeal and reviewing options; initially thought about hospice, now not interested at this time; patient/family declined [facility] [place] transfer, decline lung biopsy; attempting to find SNF to handle O2 needs as we wean - awaiting placement to SNF, Will continue to work with care mangement. Gastrointestinal Grade I hemorrhoids Assessment: fresh red blood streaking on Bowel movement PLAN: Preparation H ordered. hgb stable Abnormal CT scan, gastrointestinal tract Small area of contour bulge noted on the anterior pancreatic tail on 09/[address] scan done on 09/22 does not reveal the bulge Hematology Leukocytosis No evidence of infection Likely secondary to steroids. Empiric levaquin started per pulmonology Discontinue after total of 5 days. DVT (deep venous thrombosis) (HCC) - Recent diagnosis of DVT at outside facility - Diagnosed 08/2018, with bilateral LE involvement per family - - LE DVT US was negative here on admission to ICU; no new symptoms - Continue Xarelto Rheumatology Arthritis - Possible RA - Recent diagnosis, with positive RF - Not on meds, further outpatient management, rheumatology follow up Medication and Non-Pharmacologic VTE Prophylaxis/Anticoagulants Anticoagulant AND Antiplatelet Medications Start Dose Route Frequency Ordered Stop 09/11/18 1730 rivaroxaban 20 mg tab(s) (XARELTO) (rivaroxaban DVT/PE CONTINUATION of therapy beyond 21 days) 20 mg ORAL DAILY WITH DINNER 09/11/18 1729 -- 09/11/18 1715 activity - mobilize patient (ak,oh) VTE Prophylaxis: on full dose anticoagulation Plan of care discussed with: Patient, Family/Significant Other: at bedside and Care Management SIGNATURE: Cara Rai MD PATIENT NAME: David Briceno DATE: October 01, 2018 TIME: 11:11 AM PAGER/CONTACT #: [phone] THERAPY NT Observed: 10/01/2018 Status: COMPLETED Source: [place] 11:01 AM [facility] REPOSITORY HNO ID: [id number] Author: Mag Herzog/Arminda) Andi Service: Occupational Therapy Author Type: Occupational Therapist Type: Therapy (PT/OT/Speech/Resp) Filed: 10/01/2018 11:01 AM Note Text: OCCUPATIONAL THERAPY MISSED VISIT SERVICE DATE: 10/01/2018 SERVICE TIME: 1059 to 1059 ROOM: [place] [address] Attempted Treatment. Patient not seen due to Another service at bedside: CM reports patient is currently working with PT. Will re-attempt as schedule allows. SIGNATURE: Mag Escamilla OT/Arminda PATIENT NAME: David Briceno DATE: October 01, 2018 TIME: 11:01 AM CASE MANAGEM Observed: 10/01/2018 Status: COMPLETED Source: [place] 8:53 AM [facility] REPOSITORY HNO ID: [id number] Author: Didi Jimenez (Rn) ALEJO Jesus Service: Case Management Author Type: Registered Nurse Type: Care Mgt Progress Note Filed: 10/01/2018 10:52 AM Note Text: CARE MANAGEMENT PROGRESS NOTE SERVICE DATE: 10/01/2018 SERVICE TIME: 8:53 AM LOS: 20 days EMR reviewed. and dtr to visit [facility] today. Other SNF loctions [facility] and [facility] accepted also. Need final choice for [facility]. Pt on 4L n/c Spo2 at 90 to 99%. He DeSats with activity but tolerates it well. Activity with PT/OT goal is to keep at Spo2 above 88%. He is assist of 1 person. 10:43 AM CM spoke to Dtr and they did not like [facility] asked for [facility] SNF. CM updated [facility]. Facility concern about need of oxygen on exertion, some how they have 15L, but Pt has been 4-5L with Spo2 At or above 88%. CM spoke to Niurka at [facility] to review, his first choice. Precert started. SIGNATURE: Didi Jesus RN PATIENT NAME: David Briceno DATE: October 01, 2018 TIME: 8:53 AM PAGER/CONTACT #: [phone] NUTRITION Observed: 10/01/2018 Status: COMPLETED Source: [place] 8:33 AM [facility] REPOSITORY HNO ID: [id number] Author: Paula Frances) Abhi Service: Nutrition Therapy Author Type: Registered Dietitian Type: Nutrition Filed: 10/01/2018 8:37 AM Note Text: NUTRITION THERAPY PROGRESS NOTE SERVICE DATE: 10/01/2018 SERVICE TIME: 7:30 am NUTRITION CARE PLAN Intervention: Intake- 100 % of meals. Monitor intake. .Reviewed current labs and physician progress notes. Monitor and Evaluation: Goal: Meet >75% of estimated needs Discharge Nutrition Recommendations: Diet: Heart Healthy Interval History: Cara Rai MD Acute respiratory failure (HCC) Current Assessment AND Plan ? 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 - Per pulmonology, differential diagnosis of this ILD includes IPF, non specific interstitial pneumonitis (NSIP), rheumatoid lung disease, asbestosis. - BNP done to r/o HF, echocardiogram showed EF 61%, no diastolic dysfunction; is on maintenance Lasix however - CT chest showed multifocal bilateral pulmonary infiltrates on background of severe COPD/emphysema, not deemed pneumonia at this time per pulm; also showed lung nodules; repeat on 09/22 shows mild improvement infiltrates, stable emphysema - On aerosols, weaning O2 as able, high flow to NC now, attempts to wean have been difficult - Was on prednisone - Solu-Medrol brief course now per pulmonology, back on prednisone now - Per pulmonology, who is on consult, was to have further evaluation and treatment options discussed at [facility] Interdisciplinary ILD conference but they were unable to connect this week. - LTAC placement denied x 2- family appealing third appeal and reviewing options; initially thought about hospice, now not interested at this time; patient/family declined [facility] [place] transfer, decline lung biopsy; attempting to find SNF to handle O2 needs as we wean - awaiting placement to SNF, ? ? Current Diet Order DIET HEART HEALTHY Order Specific Question: Heart Healthy Answer: 4 GM SODIUM (<200 MG CHOL / LOW SAT FAT) Height: 175.3 cm (5' 9) Admission Weight: 81 kg (178 lb 9.2 oz) Current Weight: 83.1 kg (183 lb 4.8 oz) Body mass index is 27.07 kg/m?. overweight Recent Labs 10/01/18 0510 GLUC 87 BUN 14 CREAT 0.77 NA 142 K 3.8 CHLOR 100 CO2 32* HB 13.1 HCT 41.3 WBC 19.11* MNT Billing Type: Re-assess/15 min 1 unit SIGNATURE: Paula Moe RD, LD PATIENT NAME: David Briceno DATE: October 01, 2018 TIME: 8:34 AM BASIC METABOLIC PANL Collected: 10/01/2018 Status: F Source: [place] 5:10 AM [facility] OTHER [facility] REPOSITORY TYPE CODE TESTS RESULT OUT OF REFERENCE UNITS RANGE LAB GLU 74-99 mg/dL Glucose 87 Result Comment: The [place] Diabetes Association (ADA) provides guidance for cutoff values for fasting glucose and random glucose. The ADA defines fasting as no caloric intake for at least 8 hours. Fas ting plasma glucose results between 100 to 125 mg/dL indicate increased risk for diabetes (prediabetes). Fasting plasma glucose results greater than or equal to 126 mg/dL meet the criteria for diagnosis of diabetes. In the absence of unequivocal hyperglycemia, results should be confirmed by repeat testing. In a patient with classic symptoms of hyperglycemia or hyperglycemic crisis, random plasma glucose results greater than or equal to 200 mg/dL meet the criteria for diagnosis of diabetes. Reference: Standards of Medical Care in Diabetes 2016, [place] [employer] Association. Diabetes Care. 2016.39(Suppl 1). LAB BUN 9-24 mg/dL BUN 14 LAB CRET 0.73-1.22 mg/dL Creatinine 0.77 LAB NA 136-144 mmol/L Sodium 142 LAB K 3.7-5.1 mmol/L Potassium 3.8 LAB CL 97-105 mmol/L Chloride 100 LAB CO2 22-30 mmol/L CO2 High 32 LAB AGAP 9-18 mmol/L Anion Gap 10 LAB CA 8.5-10.2 mg/dL Calcium, Total 8.8 LAB GFRAA eGFR- Amer. >60 LAB GFRNAA . eGFR-All Other Races >60 Result Comment: eGFR (Estimated GFR) Units of measure: mL/min/1.73 meters squared eGFR is derived from the reexpressed MDRD Study equation using the following parameters: serum creatinine, age, gender and race. The creatinine assay has been calibrated to be traceable to IDMS. An eGFR <60 mL/min/1.73m2 for >3 months is consistent with chronic kidney disease. Refer to KDOQI guidelines for clinical interpretation. In patients with unstable renal function, e.g. those with acute kidney injury, the eGFR may not accurately reflect actual GFR. Performed By: #### BMP, CBCDIF #### [facility] [address] [place] [address] CBC AND DIFFERENTIAL Collected: 10/01/2018 Status: F Source: [place] 5:10 AM [facility] OTHER CAMPUS REPOSITORY TYPE CODE TESTS RESULT OUT OF REFERENCE UNITS RANGE LAB WBC 3.70-11.00 k/uL WBC High 19.11 LAB RBC 4.20-6.00 m/uL RBC 4.45 LAB HGB 13.0-17.0 g/dL Hemoglobin 13.1 LAB HCT 39.0-51.0 % Hematocrit 41.3 LAB MCV 80.0-100.0 fL MCV 92.8 LAB MCH 26.0-34.0 pG MCH 29.4 LAB MCHC 30.5-36.0 g/dL MCHC 31.7 LAB RDWCV 11.5-15.0 % RDW-CV High 16.6 LAB PLTCT 150-400 k/uL Platelet Count 151 LAB MPV 9.0-12.7 fL MPV 9.8 LAB NEUT % Neut% 62 LAB ALYMP % Lymph% 23 LAB AMONO % [place]% 6 LAB AMYELO 0 % Myelo% High 8 LAB PROMY 0 % Promyl% High 1 LAB ABNEUT 1.70-7.00 k/uL Abs Neut High 11.85 LAB ABLYM 0.90-4.00 K/uL Abs Lym High 4.40 LAB ABMONO <0.87 k/uL Abs [place] High 1.15 LAB LFTIMI Left Shift Present LAB ANIIMI Anisocytosis Present LAB PLTEST Platelet Estimate Platelet estimate adequate Performed By: #### BMP, CBCDIF #### [facility] [address] [facility] [phone] THERAPY NT Observed: 09/30/2018 Status: COMPLETED Source: [place] 4:32 PM [facility] REPOSITORY HNO ID: [id number] Author: Case (Pt) Ling Service: Physical Therapy Author Type: Physical Therapist Type: Therapy (PT/OT/Speech/Resp) Filed: 09/30/2018 4:43 PM Note Text: Physical Therapy Treatment SERVICE DATE: 09/30/2018 SERVICE TIME: 1552 to 1620 ROOM: [place] [address] Recommended Discharge Disposition: Subacute/SNF Recommended Discharge Disposition Comments: Pt would benefit from further skilled therapy to address all functional limitations to allow pt to return to [facility]. Anticipate pt will progress to home with home PT with 24 hour assist/supervision. Pt will need to be able to tolerate activity while keeping SPO2 sats above 88%. Justification For Post Acute Needs: Anticipated community discharge;Cognition intact;Good family support;Good premorbid functional status;Living the community premorbidly;Motivated;Medically complex;Willing to participate;Anticipate that patient will require daily (5x/wk) skilled therapy in a post-acute facility setting at the time of acute hospital discharge Anticipated Discharge Needs: Family Training;Physical Assist at Home;Supervision at Home Physical Assist at Home for: Cleaning;Laundry;Meals;Medication Management;Stairs;Safety;Self Care;Shopping;Transportation Supervision at Home due to: Other: See Comment (for safety) Recommended Discharge Equipment: To Be Determined PT Recommendations to Nursing: Ambulate with device;To bathroom;In halls;Transfer to/from chair;OOB for Meals;Sit at edge of bed;With assist of 1 person Device: Wheeled Walker PT 6 Clicks Score: 19 Precautions/Activity Restrictions: Fall Risk;Lines/Tubes/Drains Precaution/Activity Restriction Comments: per MD note, target SpO2 >90% ASSESSMENT : Patient demonstrating progression with O2 decreased to 4 L/min via NC, ability to tolerate light manually resisted BLE exercise AND increase amb distance. Intermitt visual AND verbal cues provided with sitting break for breathing between activities. Note decreased O2 sat with increased standing/amb activity, requiring time AND coached breathing for recovery. Continue with recommendation for skilled therapy, to further improve patient's functional abilities and activity tolerance for eventual return home. Patient Disposition at Start of Session: Supine in Bed;Call [place] in Reach;Family Present Patient Disposition at End of Session: OOB in Chair;Call [place] in Reach;Family Present Tolerance Limited By Physiologic Response;Fatigue (shortness of breath, decrease O2 sat) Physical Therapy Problem List: Education Deficit;Safety Deficits;Decreased Activity Tolerance;Decreased Strength;Functional Mobility Impairment;Balance Impaired Patient /Caregiver Goals: Go To Rehab Goals for Plan of Care: Able to perform HEP with: Independent Transfer supine to/from sit with: Independent Transfer sit to/from stand with: Supervision Ambulate with: Stand By Assistance (keeping SPO2 sats above 88% ) Distance: 100-150 Device: Wheeled Walker (LRAD ) Ambulate up and down steps with: Stand By Assistance Number of steps: 10 Device: Rail;Hand Held Assist Car transfer with: Supervision Progress Toward Goals: Progressing slower than expected Due To: acuity of illness Rehab Potential: Good PLAN: Treatment Frequency (times per week): 4 Current admission Treatment Interventions: Education;Energy Conservation Training;Strengthening;Functional Mobility Training;Balance Training;Neuromuscular Re-education Plan of Care developed with: Patient TREATMENT INTERVENTIONS: Therapy Diagnosis: Reduced mobility-other;General symptoms and signs-other Interventions Provided: Therapeutic Exercise (58450);Therapeutic Activity (65163);Gait Training (48170) Therapeutic Exercise (56646) Treatment Minutes: 10 1 unit Skilled Intervention(s): Instruction in therapeutic exercise - progression of exercise with light manual resistance Verbal and tactile cuing provided for correct exercise technique AND breathing with exertion Education in benefits of general ex AND mobility. Performed 10 reps light manually resisted B ankle pumps, hip abd/add, R/L knee flex/ext, active R/L SLR. Therapeutic Activity (83201) Treatment Minutes: 8 0 units Skilled Intervention(s): Instructed patient in supine to sit pushing with upper extremities to sit up Education with avoidance of breath holding w/activity, deep breathing, paced activity Patient requires coached breathing breaks for recovery between activities (exercise, standing, gait). Educated patient in effect of posture on breathing, instructed in bracing BUE on knees or table to allow increased rib expansion for deeper breath. Note patient to be a mouth breather. Gait Training (48974) Treatment Minutes: 10 1 unit Skilled Intervention(s): Instruction in sit to stand technique with proper hand placement and body positioning at edge of bed/chair x2 functional trials, x10 repeated trials for functional strengthening AND balance Requires repeated cues for breathing, correct hand placement Instruction in sequencing, gait pattern Instruction in correction of gait deviations Instruction in use of equipment, cues for sequence and pattern Note decreased O2 sat, SOB with increased distance amb AND with repeated sit/stand. Total Timed Code Treatment Minutes: 28 Total Treatment Time (minutes): 29 FUNCTIONAL G CODE: PT 6 Clicks Score: 19 (09/30/18 1552) Mobility: Walking and Moving Around Current Status (G8978): CK (09/13/18804) Mobility: Walking and Moving Around Goal Status (G8979): CJ (09/13/18804) Based on clinical assessment and the score on the 6 Clicks Functional Assessment Tool, the G code and corresponding severity modifiers are documented above. SUBJECTIVE: Current Hospital Course: Chart reviewed; Weaned O2 from Hi- flow NC to NC. Reason for Physical Therapy Consult : safety assessment Relevant Past Medical History: CAD, COPD, CABG, GERD, RA, DVT 08/2018, pulmonary fibrosis, emphysema, Asbestos exposure, HTN, ND, prostate CA Patient Report: Patient agreeable to PT session. Spouse AND dtr present AND included in all education AND instruction. Spouse AND dtr state current inability to care for patient at home. Home Environment Patient Lives With: Spouse (Lives in a one level home with ) Assistance Available: 24 Hour Entry To Home: Stairs;With Rail Number Of Stairs Into Home: 10 Number Of Stairs To Bed/Bath: 0 Tub/Shower Type: walk-in shower and tub/shower combo Laundry: completes Equipment Owned: Standard Walker;Wheeled Walker Prior Functional Level: Within Functional Limits Prior Functional Level Comments: Prior to Pneumonia in April pt was independent; recently pt uses a FWW OBJECTIVE: Vital Signs Pre Assessment: Heart Rate, BP, SpO2, O2 Equipment Pre Heart Rate: 84 Pre BP: 104/67 Pre BP Position: Supine Pre SpO2: 96 Pre O2 Equipment: Nasal Cannula Pre Oxygen Requirement: 4 Intra Assessment 1: Heart Rate Intra 1, SpO2 Intra 1 Intra Heart Rate 1: 97 Intra SpO2 1: 90 Intra O2 Equipment 1: Nasal Cannula Intra Oxygen Requirement 1: 4 Intra Assessment 2: Heart Rate Intra 2, SpO2 Intra 2 Intra Heart Rate 2: 95 Intra SpO2 2: 86 Intra O2 Equipment 2: Nasal Cannula Intra Oxygen Requirement 2: 4 Post Assessment: Heart Rate Post, Oxygen Equipment Post, SpO2 Post Post Heart Rate: 90 Post SpO2: 90 Post O2 Equipment: Nasal Cannula Post Oxygen Requirement: 4 CURRENT FUNCTIONAL STATUS: Cuing provided for functional mobility as noted in above interventions. Current Functional Mobility Assist Level Additional Information Rolling Supine to Sit Stand By Assistance (mod elevation HOB, use of rail) Sit to Supine Other: See Comment (patient in bed side chair at end of treatment) Scooting Stand By Assistance (sitting EOB, in chair) Sit to Stand Contact Guard Assistance (w/walker) Stand to Sit Contact Guard Assistance (w/walker) Bed to Chair Toilet/Commode Gait Contact Guard Assistance Gait Device: Wheeled Walker Gait Distance (feet): 30' Stairs (unsafe for progression) Curb Step Car Transfer General Gait Deviations: Dipti decreased;Step length decreased (progressive shortness of breath AND decreased O2 sat) Balance: Static Sitting;Dynamic Sitting;Static Standing;Dynamic Standing Static Sitting Balance: Independent (in chair) Dynamic Sitting Balance: Supervision (in chair) Static Standing Balance: Contact Guard Assistance (w/walker) Dynamic Standing Balance: Minimal Assistance (w/walker) -HLM: 7: Walk 25 feet or more Please see discipline specific clinical documentation flowsheet for complete details for this therapy evaluation/treatment. SIGNATURE: Case Dubon PT PATIENT NAME: David Briceno DATE: September 30, 2018 TIME: 4:33 PM CASE MANAGEM Observed: 09/30/2018 Status: COMPLETED Source: [place] 3:07 PM [facility] OTHER [facility] REPOSITORY HNO ID: [id number] Author: Didi Jimenez (Rn) Edin RN Service: Case Management Author Type: Registered Nurse Type: Care Mgt Progress Note Filed: 09/30/2018 3:55 PM Note Text: CARE MANAGEMENT PROGRESS NOTE SERVICE DATE: 09/30/2018 SERVICE TIME: 3:07 PM LOS: 19 days CM called by family to room. and daughter at bedside verbalized annoyances with visiting SNF. PT/OT to see for updated notes ( last seen 18th PT/ 24 OT) Case crespo. Family chose 1- [facility] and 2- [facility], 3- [facility] . Need [facility]. Pt on 4L n/c at this time. PULM note indicates could dc with Home O2 ( home with oxygen, Albuterol via nebulizer, every 4-6 hours, budesonide nebulized BID) CM reviewed home idea with and daughter. They verbalized they have not seen the MD and does not want him home . SIGNATURE: Didi Jesus RN PATIENT NAME: David Briceno DATE: September 30, 2018 TIME: 3:07 PM PAGER/CONTACT #: [phone] PROGRESS Observed: 09/30/2018 Status: COMPLETED Source: [place] 2:51 PM CL[facility] OTHER CAMP[facility] REPOSITORY HNO ID: [id number] Author: Cara Rai Service: Hospital Medicine Author Type: Physician Type: Progress Notes Filed: 09/30/2018 2:52 PM Note Text: SERVICE DATE: 09/30/2018 SERVICE TIME: 2:51 PM HOSPITAL MEDICINE PROGRESS NOTE NIGHT AND WEEKEND COVERAGE: Nights: Please contact pager [phone]. HPI SUBJECTIVE Interval Events: No Change OBJECTIVE BP 104/72 Pulse 86 Temp (Src) 98.6 (Oral) Resp 18 Ht 5' 9 (1.75m) Wt 182 lb (82.6kg) SpO2 93% BMI 26.86 kg/(m2). Physical Exam Performed: GENERAL: GENERAL APPEARANCE NCCC: well appearing, alert and in no acute distress HEART: HEART CCF: regular rate and rhythm, no murmer, gallop or rub, normal, S1, S2, no lifts, heaves, or thrills, PMI not displaced LUNGS: LUNGS CCF: clear to percussion and auscultation and no rales ABDOMEN: ABDOMEN: Soft, nontender, bowel sounds normal, no palpable organomegaly, no bruits. EXTREMITY: EXTREMITY EXAM: Normal exam of the extremities. No clubbing, cyanosis, or edema. } Lines, Drains, and Airways Line Peripheral 09/11/18 Admission to Hospital Short Left Forearm 20 Gauge 19 days Reviewed lines, drains, AND airways. Need to be continued for iv acess Medications: Reviewed Diagnostic tests reviewed: CBC Recent Labs 09/30/18 0819 WBC 21.30* RBC 4.77 HB 14.0 HCT 44.1 MCV 92.5 MCH 29.4 MCHC 31.7 RDWCV 16.5* PLT 180 MPV 9.5 CMP Recent Labs 09/30/18 0819 09/28/18 0501 NA 138 139 K 3.7 4.3 CHLOR 101 100 CO2 27 30 GLUC 132* 70* BUN 14 14 CREAT 0.66* 0.64* CA 8.8 8.6 MG -- 1.8 ASSESSMENT AND PLAN Assessment AND Plan, all Hosp Problems Active Hospital Problems as of 09/30/2018 Noted - Resolved Hospital ILD (interstitial lung disease) (HCC) 09/14/2018 - Present Current Assessment AND Plan Pulmonology is following Patient declines [facility] transfer; declines lung biopsy On inhaled steroids per pulmonology Acute respiratory failure (HCC) 09/11/2018 - Present Current Assessment AND Plan - Patient with acute on chronic hypoxemic respiratory failure secondary to AECOPD and concomitant pulmonary fibrosis, 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 - Per pulmonology, differential diagnosis of this ILD includes IPF, non specific interstitial pneumonitis (NSIP), rheumatoid lung disease, asbestosis. - BNP done to r/o HF, echocardiogram showed EF 61%, no diastolic dysfunction; is on maintenance Lasix however - CT chest showed multifocal bilateral pulmonary infiltrates on background of severe COPD/emphysema, not deemed pneumonia at this time per pulm; also showed lung nodules; repeat on 09/22 shows mild improvement infiltrates, stable emphysema - On aerosols, weaning O2 as able, high flow to NC now, attempts to wean have been difficult - Was on prednisone - Solu-Medrol brief course now per pulmonology, back on prednisone now - Per pulmonology, who is on consult, was to have further evaluation and treatment options discussed at [facility] Interdisciplinary ILD conference but they were unable to connect this week. - LTAC placement denied x 2- family appealing third appeal and reviewing options; initially thought about hospice, now not interested at this time; patient/family declined [facility] [place] transfer, decline lung biopsy; attempting to find SNF to handle O2 needs as we wean - awaiting placement to SNF, Arthritis 09/05/2018 - Present Current Assessment AND Plan - Possible RA - Recent diagnosis, with positive RF - Not on meds, further outpatient management, rheumatology follow up Hypertension, essential 09/05/2018 - Present Current Assessment AND Plan Assessment: SBP 100s-120s PLAN: Continue current meds with Norvasc AND Lasix; monitor BP MGUS (monoclonal gammopathy of unknown significance) Unknown - Present DVT (deep venous thrombosis) (HCC) 08/06/2018 - Present Current Assessment AND Plan - Recent diagnosis of DVT at outside facility - Diagnosed 08/2018, with bilateral LE involvement per family - - LE DVT US was negative here on admission to ICU; no new symptoms - Continue Xarelto Secondary pulmonary arterial hypertension (HCC) 09/05/2018 - Present Current Assessment AND Plan Secondary to ILd pulm on board Abnormal CT scan, gastrointestinal tract 09/15/2018 - Present Current Assessment AND Plan Small area of contour bulge noted on the anterior pancreatic tail on 09/[address] scan done on 09/22 does not reveal the bulge Leukocytosis 09/15/2018 - Present Current Assessment AND Plan No evidence of infection Likely secondary to steroids. Empiric levaquin started per pulmonology. Grade I hemorrhoids 09/29/2018 - Present Current Assessment AND Plan Assessment: fresh red blood streaking on Bowel movement PLAN: Preparation H ordered. hgb stable Medication and Non-Pharmacologic VTE Prophylaxis/Anticoagulants Anticoagulant AND Antiplatelet Medications Start Dose Route Frequency Ordered Stop 09/11/18 1730 rivaroxaban 20 mg tab(s) (XARELTO) (rivaroxaban DVT/PE CONTINUATION of therapy beyond 21 days) 20 mg ORAL DAILY WITH DINNER 09/11/18 1729 -- 09/11/18 1715 activity - mobilize patient ([place]) VTE Prophylaxis: on full dose anticoagulation Plan of care discussed with: Patient and Care Management SIGNATURE: Cara Rai MD PATIENT NAME: David Briceno DATE: September 30, 2018 TIME: 2:51 PM PAGER/CONTACT #: [phone] CONSULT PROG Observed: 09/30/2018 Status: COMPLETED Source: [place] 1:50 PM [facility] OTHER CAMPUS REPOSITORY HNO ID: [id number] Author: Rosy Barker Service: Pulmonary Disease Author Type: Physician Type: Consult Progress Note Filed: 09/30/2018 1:55 PM Note Text: [facility] [place], 09/30/2018: [facility] [place] interstitial lung disease conference canceled 10/01/2018, next scheduled 10/08/2018; patient's case is on roster to be discussed. spO2 93-95% on 5 L Nasal Cannula O2. IMPRESSION AND RECOMMENDATIONS: I see no reason patient could not be discharged to home with oxygen, Albuterol via nebulizer, every 4-6 hours, budesonide nebulized BID. I can follow up as outpatient after ILD conference discussion with further recommendations for evaluation and Rx. Rosy Barker MD, [facility] Medical Office [place] [address] P: [phone] F: [phone] ALLIED HEALTH Observed: 09/30/2018 Status: COMPLETED Source: [place] 12:25 PM [facility] REPOSITORY HNO ID: [id number] Author: [place]) Chaplain Izabella Service: Spiritual Care Author Type: Lithograph Designer Type: Allied Health Filed: 09/30/2018 12:27 PM Note Text: SPIRITUALCARE Spiritual Care Visit- Brief Note Name: David Briceno Date: September 30, 2018 Notes: Follow-up visit with pt. Pt seemed focused on his next step of selecting a rehab facility. Pt expressed gratitude for the quality of care he has received. Provided active listening, spiritual presence, theological reflection, and prayer. Lithograph Designer Signature: Chaplain Cameron To contact the Spiritual Care Department: Please call [phone] or Page the On-Call Lithograph Designer at pager [phone] Thank you for the opportunity to be of service. This is an electronically created document. IF PRINTED, PLEASE DO NOT REMOVE FROM THE CHART OR MODIFY PRINTED COPY. CASE MANAGEM Observed: 09/30/2018 Status: COMPLETED Source: [place] 8:48 AM [facility] REPOSITORY HNO ID: [id number] Author: Didi Jimenez (Rn) ALEJO Jesus Service: Case Management Author Type: Registered Nurse Type: Care Mgt Progress Note Filed: 09/30/2018 8:59 AM Note Text: CARE MANAGEMENT PROGRESS NOTE SERVICE DATE: 09/30/2018 SERVICE TIME: 8:48 AM LOS: 19 days EMR reviewed. On 5L n/c Today, SNF list given for Choices AND family going to look at placed. LTACH 3rd denial , son ([phone]). ([facility] [phone], Claire Espinosa) CM met with , he DeSat to 81% getting off bedside commode. Tolerated talking on phone with son. Family visited and will continue to visit SNF from the list. No Choices made at this time. SIGNATURE: Didi Jesus RN PATIENT NAME: David Briceno DATE: September 30, 2018 TIME: 8:48 AM PAGER/CONTACT #: [phone] CBC Collected: 09/30/2018 Status: F Source: [place] 8:19 AM [facility] OTHER CAMPUS REPOSITORY TYPE CODE TESTS RESULT OUT OF REFERENCE UNITS RANGE LAB WBC 3.70-11.00 k/uL WBC High 21.30 LAB RBC 4.20-6.00 m/uL RBC 4.77 LAB HGB 13.0-17.0 g/dL Hemoglobin 14.0 LAB HCT 39.0-51.0 % Hematocrit 44.1 LAB MCV 80.0-100.0 fL MCV 92.5 LAB MCH 26.0-34.0 pG MCH 29.4 LAB MCHC 30.5-36.0 g/dL MCHC 31.7 LAB RDWCV 11.5-15.0 % RDW-CV High 16.5 LAB PLTCT 150-400 k/uL Platelet Count 180 LAB MPV 9.0-12.7 fL MPV 9.5 Performed By: #### CBC, [facility] #### [facility] [address] [place] [address] BASIC METABOLIC PANL Collected: 09/30/2018 Status: F Source: [place] 8:19 AM [facility] OTHER CAMPUS REPOSITORY TYPE CODE TESTS RESULT OUT OF REFERENCE UNITS RANGE LAB GLU 74-99 mg/dL High Glucose 132 Result Comment: The [place] Diabetes Association (ADA) provides guidance for cutoff values for fasting glucose and random glucose. The ADA defines fasting as no caloric intake for at least 8 hours. Fas ting plasma glucose results between 100 to 125 mg/dL indicate increased risk for diabetes (prediabetes). Fasting plasma glucose results greater than or equal to 126 mg/dL meet the criteria for diagnosis of diabetes. In the absence of unequivocal hyperglycemia, results should be confirmed by repeat testing. In a patient with classic symptoms of hyperglycemia or hyperglycemic crisis, random plasma glucose results greater than or equal to 200 mg/dL meet the criteria for diagnosis of diabetes. Reference: Standards of Medical Care in Diabetes 2016, [place] Diabetes Association. Diabetes Care. 2016.39(Suppl 1). LAB BUN 9-24 mg/dL BUN 14 LAB CRET 0.73-1.22 mg/dL Creatinine Low 0.66 LAB NA 136-144 mmol/L Sodium 138 LAB K 3.7-5.1 mmol/L Potassium 3.7 LAB CL 97-105 mmol/L Chloride 101 LAB CO2 22-30 mmol/L CO2 27 LAB AGAP 9-18 mmol/L Anion Gap 10 LAB CA 8.5-10.2 mg/dL Calcium, Total 8.8 LAB GFRAA eGFR- Amer. >60 LAB GFRNAA . eGFR-All Other Races >60 Result Comment: eGFR (Estimated GFR) Units of measure: mL/min/1.73 meters squared eGFR is derived from the reexpressed MDRD Study equation using the following parameters: serum creatinine, age, gender and race. The creatinine assay has been calibrated to be traceable to IDMS. An eGFR <60 mL/min/1.73m2 for >3 months is consistent with chronic kidney disease. Refer to KDOQI guidelines for clinical interpretation. In patients with unstable renal function, e.g. those with acute kidney injury, the eGFR may not accurately reflect actual GFR. Performed By: #### CBC, BMP #### [facility] [address] [facility] [phone] PROGRESS Observed: 09/29/2018 Status: COMPLETED Source: [place] 3:26 PM CLINIC OTHER CAMPUS REPOSITORY [facility] ID: [id number] Author: Cara Rai Service: Hospital Medicine Author Type: Physician Type: Progress Notes Filed: 09/29/2018 3:26 PM Note Text: SERVICE DATE: 09/29/2018 SERVICE TIME: 3:26 PM HOSPITAL MEDICINE PROGRESS NOTE NIGHT AND WEEKEND COVERAGE: Nights: Please contact pager [phone]. HPI SUBJECTIVE Interval Events: No Change OBJECTIVE BP 109/70 Pulse 80 Temp (Src) 96.8 (Oral) Resp 20 Ht 5' 9 (1.75m) Wt 182 lb 12.2 oz (82.9kg) SpO2 96% BMI 26.98 kg/(m2). Physical Exam Performed: GENERAL: GENERAL APPEARANCE NCCC: well appearing, alert and in no acute distress HEART: HEART CCF: regular rate and rhythm, no murmer, gallop or rub, normal, S1, S2, no lifts, heaves, or thrills, PMI not displaced LUNGS: Bilateral crackles heard on the bases ABDOMEN: ABDOMEN: Soft, nontender, bowel sounds normal, no palpable organomegaly, no bruits. EXTREMITY: EXTREMITY EXAM: Normal exam of the extremities. No clubbing, cyanosis, or edema. Lines, Drains, and Airways Line Peripheral 09/11/18 Admission to Hospital Short Left Forearm 20 Gauge 18 days Reviewed lines, drains, AND airways. Need to be continued for iv acess Medications: Reviewed Diagnostic tests reviewed: CBC, Coags, BMP, Mg, Phos Recent Labs 09/28/18 0501 WBC 15.41* HB 13.0 HCT 41.1 PLT 178 NA 139 K 4.3 CHLOR 100 CO2 30 BUN 14 CREAT 0.64* GLUC 70* CA 8.6 MG 1.8 ASSESSMENT AND PLAN Assessment AND Plan, all Hosp Problems Active Hospital Problems as of 09/29/2018 Noted - Resolved Hospital ILD (interstitial lung disease) (HCC) 09/14/2018 - Present Current Assessment AND Plan Pulmonology is following Patient declines [facility]; declines lung biopsy On inhaled steroids per pulmonology Acute respiratory failure (HCC) 09/11/2018 - Present Current Assessment AND Plan - Patient with acute on chronic hypoxemic respiratory failure secondary to AECOPD and concomitant pulmonary fibrosis, 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 - Per pulmonology, differential diagnosis of this ILD includes IPF, non specific interstitial pneumonitis (NSIP), rheumatoid lung disease, asbestosis. - BNP done to r/o HF, echocardiogram showed EF 61%, no diastolic dysfunction; is on maintenance Lasix however - CT chest showed multifocal bilateral pulmonary infiltrates on background of severe COPD/emphysema, not deemed pneumonia at this time per pulm; also showed lung nodules; repeat on 09/22 shows mild improvement infiltrates, stable emphysema - On aerosols, weaning O2 as able, high flow to NC now, attempts to wean have been difficult - Was on prednisone - Solu-Medrol brief course now per pulmonology, back on prednisone now - Per pulmonology, who is on consult, was to have further evaluation and treatment options discussed at [facility] Interdisciplinary ILD conference but they were unable to connect this week. - LTAC placement denied x 2- family appealing third appeal and reviewing options; initially thought about hospice, now not interested at this time; patient/family declined [facility] [place] transfer, decline lung biopsy; attempting to find SNF to handle O2 needs as we wean - Awaiting safe plan for discharge - possible discharge after the holiday Arthritis 09/05/2018 - Present Current Assessment AND Plan - Possible RA - Recent diagnosis, with positive RF - Not on meds, further outpatient management, rheumatology follow up Hypertension, essential 09/05/2018 - Present Current Assessment AND Plan Assessment: SBP 100s-120s PLAN: Continue current meds with Norvasc AND Lasix; monitor BP MGUS (monoclonal gammopathy of unknown significance) Unknown - Present DVT (deep venous thrombosis) (HCC) 08/06/2018 - Present Current Assessment AND Plan - Recent diagnosis of DVT at outside facility - Diagnosed 08/2018, with bilateral LE involvement per family - - LE DVT US was negative here on admission to ICU; no new symptoms - Continue Xarelto Secondary pulmonary arterial hypertension (HCC) 09/05/2018 - Present Current Assessment AND Plan Secondary to ILd pulm on board Abnormal CT scan, gastrointestinal tract 09/15/2018 - Present Current Assessment AND Plan Small area of contour bulge noted on the anterior pancreatic tail on 09/[address] scan done on 09/22 does not reveal the bulge Leukocytosis 09/15/2018 - Present Current Assessment AND Plan No evidence of infection Likely secondary to steroids. Empiric levaquin started per pulmonology. Medication and Non-Pharmacologic VTE Prophylaxis/Anticoagulants Anticoagulant AND Antiplatelet Medications Start Dose Route Frequency Ordered Stop 09/11/18 1730 rivaroxaban 20 mg tab(s) (XARELTO) (rivaroxaban DVT/PE CONTINUATION of therapy beyond 21 days) 20 mg ORAL DAILY WITH DINNER 09/11/18 1729 -- 09/11/18 1715 activity - mobilize patient ([place]) VTE Prophylaxis: VTE prophylaxis appropriate Plan of care discussed with: Patient and Family/Significant Other: son SIGNATURE: Cara Rai MD PATIENT NAME: David Briceno DATE: September 29, 2018 TIME: 3:26 PM PAGER/CONTACT #: [phone] PROGRESS Observed: 09/28/2018 Status: COMPLETED Source: [place] 2:40 PM CLIN[facility] OTHER CAMPUS REPOSITORY HNO ID: [id number] Author: Cara Rai Service: Hospital Medicine Author Type: Physician Type: Progress Notes Filed: 09/28/2018 2:40 PM Note Text: SERVICE DATE: 09/28/2018 SERVICE TIME: 2:40 PM HOSPITAL MEDICINE PROGRESS NOTE NIGHT AND WEEKEND COVERAGE: Nights: Please contact pager [phone]. HPI SUBJECTIVE Interval Events: No Change OBJECTIVE BP 103/68 Pulse 84 Temp (Src) 97.9 (Oral) Resp 20 Ht 5' 9 (1.75m) Wt 189 lb (85.7kg) SpO2 96% BMI 27.90 kg/(m2). Physical Exam Performed: GENERAL: GENERAL APPEARANCE NCCC: chronically ill, alert and in no acute distress HEART: HEART CCF: regular rate and rhythm, no murmer, gallop or rub, normal, S1, S2, no lifts, heaves, or thrills, PMI not displaced LUNGS: Crackles heard on the bilateral lung bases, more on the right than on the left ABDOMEN: ABDOMEN: Soft, nontender, bowel sounds normal, no palpable organomegaly, no bruits. EXTREMITY: EXTREMITY EXAM: Normal exam of the extremities. No clubbing, cyanosis, or edema. Lines, Drains, and Airways Line Peripheral 09/11/18 Admission to Hospital Short Left Forearm 20 Gauge 17 days Reviewed lines, drains, AND airways. Need to be continued for iv acess Medications: Reviewed Diagnostic tests reviewed: CBC, Coags, BMP, Mg, Phos Recent Labs 09/28/18 0501 09/26/18 0450 WBC 15.41* 12.76* HB 13.0 13.7 HCT 41.1 42.1 PLT 178 195 NA 139 135* K 4.3 4.4 CHLOR 100 99 CO2 30 28 BUN 14 14 CREAT 0.64* 0.53* GLUC 70* 179* CA 8.6 9.2 MG 1.8 2.0 ASSESSMENT AND PLAN Assessment AND Plan, all Hosp Problems Active Hospital Problems as of 09/28/2018 Noted - Resolved Hospital ILD (interstitial lung disease) (HCC) 09/14/2018 - Present Current Assessment AND Plan Pulmonology is following Patient declines [facility]; declines lung biopsy Acute respiratory failure (HCC) 09/11/2018 - Present Current Assessment AND Plan - Patient with acute on chronic hypoxemic respiratory failure secondary to AECOPD and concomitant pulmonary fibrosis, 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 - Per pulmonology, differential diagnosis of this ILD includes IPF, non specific interstitial pneumonitis (NSIP), rheumatoid lung disease, asbestosis. - BNP done to r/o HF, echocardiogram showed EF 61%, no diastolic dysfunction; is on maintenance Lasix however - CT chest showed multifocal bilateral pulmonary infiltrates on background of severe COPD/emphysema, not deemed pneumonia at this time per pulm; also showed lung nodules; repeat on 09/22 shows mild improvement infiltrates, stable emphysema - On aerosols, weaning O2 as able, high flow to NC now, attempts to wean have been difficult - Was on prednisone - Solu-Medrol brief course now per pulmonology, back on prednisone now - Per pulmonology, who is on consult, was to have further evaluation and treatment options discussed at [facility] Interdisciplinary ILD conference but they were unable to connect this week. - LTAC placement denied x 2- family appealing third appeal and reviewing options; initially thought about hospice, now not interested at this time; patient/family declined [facility] [place] transfer, decline lung biopsy; attempting to find SNF to handle O2 needs as we wean - Awaiting safe plan for discharge - possible discharge after the holiday Arthritis 09/05/2018 - Present Current Assessment AND Plan - Possible RA - Recent diagnosis, with positive RF - Not on meds, further outpatient management, rheumatology follow up Hypertension, essential 09/05/2018 - Present Current Assessment AND Plan Assessment: SBP 100s-120s PLAN: Continue current meds with Norvasc AND Lasix; monitor BP MGUS (monoclonal gammopathy of unknown significance) Unknown - Present DVT (deep venous thrombosis) (HCC) 08/06/2018 - Present Current Assessment AND Plan - Recent diagnosis of DVT at outside facility - Diagnosed 08/2018, with bilateral LE involvement per family - ?provoked in setting of recent prior hospitalizations - LE DVT US was negative here on admission to ICU; no new symptoms - Continue Xarelto Secondary pulmonary arterial hypertension (HCC) 09/05/2018 - Present Abnormal CT scan, gastrointestinal tract 09/15/2018 - Present Current Assessment AND Plan As above, prior abnormal CT; recommended MRI pancreas with contrast at some point to evaluate - can address when acute respiratory status improves Leukocytosis 09/15/2018 - Present Current Assessment AND Plan No evidence of infection Likely secondary to steroids. Empiric levaquin started per pulmonology. Medication and Non-Pharmacologic VTE Prophylaxis/Anticoagulants Anticoagulant AND Antiplatelet Medications Start Dose Route Frequency Ordered Stop 09/11/18 1730 rivaroxaban 20 mg tab(s) (XARELTO) (rivaroxaban DVT/PE CONTINUATION of therapy beyond 21 days) 20 mg ORAL DAILY WITH DINNER 09/11/18 1729 -- 09/11/18 1715 activity - mobilize patient ([place]) VTE Prophylaxis: VTE prophylaxis appropriate Plan of care discussed with: Patient and Consultants: pulmonology SIGNATURE: Cara Rai MD PATIENT NAME: David Briceno DATE: September 28, 2018 TIME: 2:40 PM PAGER/CONTACT #: [phone] THERAPY NT Observed: 09/28/2018 Status: COMPLETED Source: [place] 1:27 PM CLINIC OTHER CAMPUS REPOSITORY HNO ID: [id number] Author: Barby (OtMegan Mohan Service: Occupational Therapy Author Type: Occupational Therapist Type: Therapy (PT/OT/Speech/Resp) Filed: 09/28/2018 1:34 PM Note Text: Occupational Therapy Treatment SERVICE DATE: 09/28/2018 SERVICE TIME: 1140 to 1206 ROOM: [place] [address] Recommended Discharge Disposition: Subacute/SNF Recommended Discharge Disposition Comments: Patient is functioning below baseline and would benefit from continued therapy at discharge to increase ease independence and safety with ADLS and functional mobility tasks Justification For Post Acute Needs: Cognition intact;Good family support;Living the community premorbidly;Motivated;Willing to participate;Anticipate that patient will require daily (5x/wk) skilled therapy in a post-acute facility setting at the time of acute hospital discharge Anticipated Discharge Needs: Family Training;Physical Assist at Home;Supervision at Home Physical Assist at Home for: Cleaning;Laundry;Meals;Medication Management;Stairs;Safety;Self Care;Shopping;Transportation Supervision at Home due to: Other: See Comment (for safety) Recommended Discharge Equipment: Chemical Tank Worker (SPO2 monitor) OT Recommendations to Nursing: ADL?s in chair;Bedside Commode for Toileting;OOB for meals;Edge of bed ADL?s;Transfer to Chair;With assist of 1 person Equipment: Commode-Bedside (LRAD, gait belt) OT 6 Clicks Score: 24 Precautions/Activity Restrictions: Fall Risk;Lines/Tubes/Drains Precaution/Activity Restriction Comments: per MD note, target SpO2 >90% ASSESSMENT: Pt is at SBA level for ADLS and functional mobility. Pt continues to be limited by impaired activity tolerance and shortness of breath with minimal exertion. Patient however demonstrates improved activity tolerance during this session as patient was able to tolerate standing >5 minutes with pulse ox only dropping to 87%. Patient could continue to benefit from skilled OT services to address self care limitations as well as progression of daily activities within safe limits. Continue to recommend SNF post hospital stay, short term for optimal safety, education on EC/WS, maximal independence. Patient Disposition at Start of Session: OOB in Chair;Family Present Patient Disposition at End of Session: OOB in Chair;Family Present Tolerated Full Session Physiologic Response;Other: See Comment (low O2 sats) Occupational Therapy Problem List: Impaired Self Care;Decreased Activity Tolerance;Decreased Strength;Functional Mobility Impairment;Balance Impaired Patient /Caregiver Goals: Go To Rehab Goals for Plan of Care: Able to perform HEP with: Modified Independent (for functional BUE strengthening and activ tolerance) Lower Body Dressing with: Supervision Chair Transfer with: Supervision Toilet Transfer with: Supervision Tolerate (minutes of functional activity): 5 (with SpO2 >90%) Functional Activity with: Supervision Demonstrate Competence With Education with: Independent (for use of energy conserv techniques) Progress Toward Goals: Progressing as expected Rehab Potential: Good PLAN: Treatment Frequency (times per week): 2 Current admission Treatment Interventions: Education;Self Care / Home Management;Energy Conservation Training;Strengthening;Functional Mobility Training;Balance Training Plan of Care developed with: Patient TREATMENT INTERVENTIONS: Therapy Diagnosis: Decreased activities of daily living (ADL) Interventions Provided: Self Skilled Nursing Management ([id number]) Self Skilled Nursing Management ([id number]) Treatment Minutes: 26 2 units Skilled Intervention(s): Pt and family educated in role of OT and role of rehab/SNF extensively. Patient and family educated in recommendation of obtaining own pulse oximeter for personal benefits and and encouraged proper breathing with information on where to purchase. Patient and family educated in use of ciaio lumite injector for energy conservation with practice grasping items. Pt educated and participated in LB dressing with encouragement to complete LB dressing seated with figure four technique vs bending forward. Pt educated in sit to stand transfer safety with verbal cues. Patient participated in functional standing activity of seating up lunch tray in standing. Documenting therapist monitored vital signs throughout. Pt and family educated in recommendations and plan of care. Total Timed Code Treatment Minutes: 26 Total Treatment Time (minutes): 26 FUNCTIONAL G CODE: OT 6 Clicks Score: 24 (09/28/18 1140) Self Care Current Status (G8987): CH (09/28/18 1140) Self Care Goal Status (G8988): CH (09/28/18 1140) Based on clinical assessment and the score on the 6 Clicks Functional Assessment Tool, the G code and corresponding severity modifiers are documented above. SUBJECTIVE: Current Hospital Course: Chart reviewed; Declined admissed to LTACH. Improved O2, use of 5L Reason for Occupational Therapy Consult: Patient presents to the ED on 09/11/18 with SOB, admitted to ICU. Transferred to regular nursing floor on 09/16/18. Referred to OT for safety assessment. Relevant Past Medical History: CAD, COPD, CABG, GERD, RA, DVT 08/2018, pulmonary fibrosis, emphysema, Asbestos exposure, HTN, [place], prostate CA Patient Report: I will never go back to [place], I almost there. They didn't have an oxygen mookie that worked! Home Environment Patient Lives With: Spouse (Lives in a one level home with ) Assistance Available: 24 Hour Entry To Home: Stairs;With Rail Number Of Stairs Into Home: 10 Number Of Stairs To Bed/Bath: 0 Tub/Shower Type: walk-in shower and tub/shower combo Laundry: completes Equipment Owned: Standard Walker;Wheeled Walker Prior Functional Level: Within Functional Limits Prior Functional Level Comments: Prior to Pneumonia in April pt was independent; recently pt uses a FWW OBJECTIVE: Cognition/Communication Deficits Responsiveness: Alert;Awake Follows Commands: 3-step Commands CURRENT FUNCTIONAL STATUS: Current Activities of Daily Living Assist Level Feeding Independent (lunch tray in front of patient end of session) Grooming Supervision (per clinical judgment) Bathing Upper Body Supervision (per clinical judgment) Bathing Lower Body Stand By Assistance (for safety in standing, per clinical judgment) Dressing Upper Body Supervision (per clinical judgment) Dressing Lower Body Stand By Assistance (with figure four technique, pt able to don pants) Toileting Stand By Assistance (for safety in standing, per clinical judgment) Functional Mobility Assist Level Rolling Supine to Sit (not completed this session) Sit to Supine Scooting (not completed this session) Sit to Stand Stand By Assistance Stand to Sit Stand By Assistance Bed to Chair Contact Guard Assistance Stand Pivot Gait Belt Toilet/Commode Functional Mobility Stand By Assistance (none) Please see discipline specific clinical documentation flowsheet for complete details for this therapy evaluation/treatment. SIGNATURE: DOMENICO Flores/Arminda PATIENT NAME: David Briceno DATE: September 28, 2018 TIME: 1:27 PM NURSING PROG Observed: 09/28/2018 Status: COMPLETED Source: [place] 1:14 PM [facility] REPOSITORY HNO ID: [id number] Author: Sophia Villagomez) ALEJO Orona Service: (none) Author Type: Registered Nurse Type: Nursing Progress Note Filed: 09/28/2018 3:10 PM Note Text: Nursing Progress Note Patient Name: David Briceno Patient Location: [place] [id number] Daily Note: text page sent to Dr. Rai to notify of sepsis alert. 1500 bloody bowel movement discussed with Dr. Rai, no new orders at this time. This note was completed by: Sophia Orona RN CASE MANAGEM Observed: 09/28/2018 Status: COMPLETED Source: [place] 9:43 AM [facility] REPOSITORY HNO ID: [id number] Author: Didi FrancesRn) Edin RN Service: Case Management Author Type: Registered Nurse Type: Care Mgt Progress Note Filed: 09/28/2018 10:34 AM Note Text: CARE MANAGEMENT PROGRESS NOTE SERVICE DATE: 09/28/2018 SERVICE TIME: 9:44 AM LOS: 17 days EMR reviewed. Admit Dx Acute respiratory failure, Pt on 5L n/c. MEGA Huggins received several denials, going to outside [facility] for [facility]. RUBI paged Dr Martines to update and get information on dc plans. RUBI RN with RUBI DAVIS met with Patient, , son David bowers to review dc plan. New SNF list given to review and visit. Family verbalized concern of repeat episode from last dc from [facility] to SNF and lack of O2/ Respiratory support. 10:23 AM RUBI received call from RUBI DAVIS at [facility] [phone]. She had several questions, updates given, number shared with family, insurance CM RN to be assigned. SIGNATURE: Didi Jesus RN PATIENT NAME: David Briceno DATE: September 28, 2018 TIME: 9:43 AM PAGER/CONTACT #: [phone] CBC Collected: 09/28/2018 Status: F Source: [place] 5:01 AM [facility] OTHER [place] REPOSITORY TYPE CODE TESTS RESULT OUT OF REFERENCE UNITS RANGE LAB WBC 3.70-11.00 k/uL WBC High 15.41 LAB RBC 4.20-6.00 m/uL RBC 4.42 LAB HGB 13.0-17.0 g/dL Hemoglobin 13.0 LAB HCT 39.0-51.0 % Hematocrit 41.1 LAB MCV 80.0-100.0 fL MCV 93.0 LAB MCH 26.0-34.0 pG MCH 29.4 LAB MCHC 30.5-36.0 g/dL MCHC 31.6 LAB RDWCV 11.5-15.0 % RDW-CV High 16.6 LAB PLTCT 150-400 k/uL Platelet Count 178 LAB MPV 9.0-12.7 fL MPV 10.1 Performed By: #### CBC, BMP, MG1 #### [facility] [address] [facility] [phone] BASIC METABOLIC PANL Collected: 09/28/2018 Status: F Source: [place] 5:01 AM [facility] REPOSITORY TYPE CODE TESTS RESULT OUT OF REFERENCE UNITS RANGE LAB GLU 74-99 mg/dL Low Glucose 70 Result Comment: The [place] Diabetes Association (ADA) provides guidance for cutoff values for fasting glucose and random glucose. The ADA defines fasting as no caloric intake for at least 8 hours. Fas ting plasma glucose results between 100 to 125 mg/dL indicate increased risk for diabetes (prediabetes). Fasting plasma glucose results greater than or equal to 126 mg/dL meet the criteria for diagnosis of diabetes. In the absence of unequivocal hyperglycemia, results should be confirmed by repeat testing. In a patient with classic symptoms of hyperglycemia or hyperglycemic crisis, random plasma glucose results greater than or equal to 200 mg/dL meet the criteria for diagnosis of diabetes. Reference: Standards of Medical Care in Diabetes 2016, [place] Diabetes Association. Diabetes Care. 2016.39(Suppl 1). LAB BUN 9-24 mg/dL BUN 14 LAB CRET 0.73-1.22 mg/dL Creatinine Low 0.64 LAB NA 136-144 mmol/L Sodium 139 LAB K 3.7-5.1 mmol/L Potassium 4.3 LAB CL 97-105 mmol/L Chloride 100 LAB CO2 22-30 mmol/L CO2 30 LAB AGAP 9-18 mmol/L Anion Gap 9 LAB CA 8.5-10.2 mg/dL Calcium, Total 8.6 LAB GFRAA eGFR- Amer. >60 LAB GFRNAA . eGFR-All Other Races >60 Result Comment: eGFR (Estimated GFR) Units of measure: mL/min/1.73 meters squared eGFR is derived from the reexpressed MDRD Study equation using the following parameters: serum creatinine, age, gender and race. The creatinine assay has been calibrated to be traceable to IDMS. An eGFR <60 mL/min/1.73m2 for >3 months is consistent with chronic kidney disease. Refer to KDOQI guidelines for clinical interpretation. In patients with unstable renal function, e.g. those with acute kidney injury, the eGFR may not accurately reflect actual GFR. Performed By: #### CBC, BMP, MG1 #### [facility] [address] [place] [address] MAGNESIUM Collected: 09/28/2018 Status: F Source: [place] 5:01 AM [facility] OTHER CAMPUS REPOSITORY TYPE CODE TESTS RESULT OUT OF REFERENCE UNITS RANGE LAB MG 1.7-2.3 mg/dL Magnesium 1.8 Performed By: #### CBC, BMP, MG1 #### [facility] [address] [place] [address] PROGRESS Observed: 09/27/2018 Status: COMPLETED Source: [place] 9:48 AM CLINIC OTHER CAMPUS REPOSITORY HNO ID: [id number] Author: Delphine Martines Service: Hospital Medicine Author Type: Physician Type: Progress Notes Filed: 09/27/2018 9:48 AM Note Text: SERVICE DATE: 09/27/2018 SERVICE TIME: 9:48 AM HOSPITAL MEDICINE PROGRESS NOTE Primary Care Physician: Tati Medina MD NIGHT AND WEEKEND COVERAGE: Nights: Please contact pager [phone]. HPI: Mr. Briceno is a 73 yo gentleman who has been transferred to [facility] from [facility] ED with complaints of shortness of breath. His past medical history includes pulmonary fibrosis (previously has followed w/Dr Hein in [place]) - undetermined etiology, emphysema, HTN, GERD, DVT (Aug 2018) - on Xarelto prior to admission, recently diagnosed rheumatoid arthritis (not on immunosuppressive tx), CAD S/P CABG in 2005. He is a former smoker, 40-50 pack years, quit in 1996. ? Patient states that he has had multiple recent admissions to [facility] for pneumonia - once in April, and then most recently in August. Spent several weeks at [facility] in August 2018, during which time he was treated for pneumonia, ?COPD exacerbation, DVTs - started on Xarelto. Patient states he was treated with steroids, antibiotics, bronchodilators. Still had very high FiO2 requirements at discharge. Family reports requiring 15L/min O2 NC with exertion, 6L/min O2 NC at rest. He was discharged to a facility ([facility]) that they were told could accommodate these needs, however upon arrival, it was determined that the facility would be unable to provide this amount of supplemental oxygen, and he was sent back to the emergency department. He reports that has been experiencing shortness of breath, cough that is occasionally productive of brown sputum (occasionally blood tinged). He reports associated left sided pleuritic discomfort. He denies fever/chills, wheeze, abd pain, nausea, vomiting, diarrhea, lower extremity edema, focal neurologic deficits. ? Patient reports that he was following with Dr. Hein (pulmonary - [place]) for progressively worsening shortness of breath. He was told that he has pulmonary fibrosis, and there had been concern that this could be related to rheumatoid arthritis. He was subsequently referred to rheumatology, and diagnosed with RA several weeks ago. No immunosuppressive therapy has been started. He states he was taking Breo and ProAir at home prior to admission. Patient's family states that he did not require any supplemental oxygen prior to his last hospital admission. He was experiencing dyspnea, however he was still fairly active (ie had been doing yard work, etc). He is a former smoker, 40-50 pack years, quit in 1996. 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 // No acute events overnight. Reviewed CT chest and US LL results. Patient and family reassured. No complaints. SUBJECTIVE: Patient feels better overall, with less SOB since admission though does get SOB with movement. Says is doing everything we tell him to try and get better. High flow weaned to NC. Said he has been sleeping well. No worsening cough or congestion. No more sweats since Solu-Medrol switched back to prednisone. Denies chest pain or edema; is on increased oral Lasix and urinating well he says. He is tolerating meals, with no N/V or abdominal pain. Having normal BMs. He says his son is working on a plan for discharge and family still weighing their options; not wanting to discuss hospice care anymore, and he doesn't want to undergo biopsy/procedure; no transfer wanted. They are waiting on LTAC appeal but understands SNF may be option of O2 requirements decrease. MEDICATIONS: Reviewed Objective PHYSICAL EXAM: BP 96/55 Pulse 92 Temp (Src) 97.3 (Oral) Resp 20 Ht 5' 9 (1.75m) Wt 183 lb 4.8 oz (83.1kg) SpO2 90% BMI 27.06 kg/(m2). Physical Exam Performed: GENERAL: Alert, no distress, sitting up in bed, family not present SKIN: Warm, dry. Stage I pressure ulcer bilateral buttock, stage 1 pressure ulcer to R ear. EYES: PERRL. EOMI NOSE: NC in place, no erythema. OROPHARYNX: Lips AND mucosa normal. No erythema NECK: Soft, supple LUNGS: Unlabored respirations, rales at bases >L CARDIAC: RRR. Normal S1 and S2; no gallops ABDOMEN: Active BS, abdomen soft, ND, non-tender, EXTREMITIES: ESPARZA. No LE edema. No calf tenderness. NEURO: AANDO X3. Normal speech. PULSES: 2+ radial, 2+ PT, 2+ DP Lines, Drains, and Airways Line Peripheral 09/11/18 Admission to Hospital Short Left Forearm 20 Gauge 16 days Reviewed lines, drains, AND airways. 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 - Per pulmonology, differential diagnosis of this ILD includes IPF, non specific interstitial pneumonitis (NSIP), rheumatoid lung disease, asbestosis. - BNP done to r/o HF, echocardiogram showed EF 61%, no diastolic dysfunction; is on maintenance Lasix however - CT chest showed multifocal bilateral pulmonary infiltrates on background of severe COPD/emphysema, not deemed pneumonia at this time per pulm; also showed lung nodules; repeat on 09/22 shows mild improvement infiltrates, stable emphysema - On aerosols, weaning O2 as able, high flow to NC now, attempts to wean have been difficult - Was on prednisone - Solu-Medrol brief course now per pulmonology, back on prednisone now - Per pulmonology, who is on consult, was to have further evaluation and treatment options discussed at [facility] Interdisciplinary ILD conference but they were unable to connect this week. - LTAC placement denied x 2- family appealing third appeal and reviewing options; initially thought about hospice, now not interested at this time; patient/family declined [facility] [place] transfer, decline lung biopsy; attempting to find SNF to handle O2 needs as we wean - Awaiting safe plan for discharge - possible discharge after the holiday ILD (interstitial lung disease) ([facility]) 09/14/2018 - Present Current Assessment AND Plan As noted Pulmonology is following Patient declines [facility] [place] transfer; declines lung biopsy DVT (deep venous thrombosis) ([facility]) 08/06/2018 - Present Current Assessment AND Plan - Recent diagnosis of DVT at outside facility - Diagnosed 08/2018, with bilateral LE involvement per family - ?provoked in setting of recent prior hospitalizations - LE DVT US was negative here on admission to ICU; no new symptoms - Continue Xarelto Arthritis 09/05/2018 - Present Current Assessment AND Plan - Possible RA - Recent diagnosis, with positive RF - Not on meds, further outpatient management, rheumatology follow up Abnormal CT scan, gastrointestinal tract 09/15/2018 - Present Current Assessment AND Plan As above, prior abnormal CT; recommended MRI pancreas with contrast at some point to evaluate - can address when acute respiratory status improves Leukocytosis 09/15/2018 - Present Current Assessment AND Plan Follow up labs had shown elevated WBC, repeat 09/26 showed improvement; has no fever Is on steroids - now prednisone No evidence new infection at this time; empiric Levaquin IV ordered by pulmonology Monitoring Hypertension, essential 09/05/2018 - Present Current Assessment AND Plan Assessment: SBP 100s-120s PLAN: Continue current meds with Norvasc AND Lasix; monitor BP MGUS (monoclonal gammopathy of unknown significance) Unknown - Present Secondary pulmonary arterial hypertension (HCC) 09/05/2018 - Present Medication and Non-Pharmacologic VTE Prophylaxis/Anticoagulants Anticoagulant AND Antiplatelet Medications Start Dose Route Frequency Ordered Stop 09/11/18 1730 rivaroxaban 20 mg tab(s) (XARELTO) (rivaroxaban DVT/PE CONTINUATION of therapy beyond 21 days) 20 mg ORAL DAILY WITH DINNER 09/11/18 1729 -- 09/11/18 1715 activity - mobilize patient (ak,ma) VTE Prophylaxis: VTE prophylaxis appropriate Plan of care discussed with: Patient SIGNATURE: Delphine Martines MD PATIENT NAME: David Briceno DATE: September 27, 2018 TIME: 9:48 AM PAGER/CONTACT #: [phone] PLAN OF CARE Observed: 09/26/2018 Status: COMPLETED Source: [place] 5:47 PM [facility] OTHER CAMPUS REPOSITORY HNO ID: [id number] Author: Cece Cat Service: Hospice Author Type: Registered Nurse Type: Plan of Care Filed: 09/26/2018 5:51 PM Note Text: [facility] PATIENT NAME: David Briceno PATIENT LOCATION: [id number] REASON FOR VISIT: Hospice Consult TOPIC OF NOTE: Progress Note ASSESSMENT AND PLAN: Visit made to unit. Spoke with bedside nurse Donell. Patient continues to decline hospice services. [facility] combination window installer will remain available if patient's goals should change. Thank you. DISCUSSED WITH: Donell NEWBY Please Call [phone] with any questions or needs with coordination of care. Request to have the covering liaison paged. Hospice and Palliative Care Liaison [facility] CONSULT PROG Observed: 09/26/2018 Status: COMPLETED Source: [place] 5:18 PM CLINIC OTHER CAMPUS REPOSITORY HNO ID: [id number] Author: Lenora Dent Service: Pulmonary Disease Author Type: Physician Type: Consult Progress Note Filed: 09/26/2018 5:24 PM Note Text: [facility]-PATIENT CONSULT PROGRESS NOTE SERVICE DATE: 09/26/2018 ASSESSMENT: Acute on chronic hypoxemic respiratory failure,improving, currently on 5 L/min NC Combined emphysema w/pulmonary fibrosis, w/exacerbation Bilateral pulmonary infiltrates per CT chest 09/11/2018 (S/P tx for pneumonia at [facility] 08/2018), on empiric iv levofloxcin for HCAP -bacterial pneumonia Irregular density pancreatic tail per CT chest 09/11/2018 Rheumatoid arthritis (recently dx'ed, Aug 2018, no tx started) 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 Supplemental O2 as needed, target?SpO2 ~90%. ?Wean as able. Continue nebulized budesonide 0.5 mg BID, DuoNeb QID. Encourage bronchopulmonary hygiene, incentive spirometry. Continue anticoagulation --> Xarelto. Continue diuresis, Lasix 40 mg PO QD. Daily PPI, pantoprazole. Consider MRI pancreas per CT chest report, non-emergent. Plan discussed in detail with patient, RN and primary attending. Patient verbalizes understanding and is in agreement with the current management plan. Total time spent in patient care includes but is not limited to patient/ family discussions, collaborative discussions with other healthcare providers, review of medical records, review of laboratory tests, radiology images/ results, microbiology and pathology data. Lenora Dent MD Staff, Respiratory [place] [facility] Pager #[phone] SUBJECTIVE CHIEF COMPLAINT: SOB INTERVAL HPI:David Briceno is a 73 year old male status since previous days visit has improved. Oxygen requirement down to 5 l /min NC. Still desat to the 70s upon moving from bed to chair. No fevers, chills, night sweats, chest pain, SOB, abd pain or leg swelling. No events over night. MEDICATIONS: Current Facility-Administered Medications: acetaminophen 650 mg tab(s) (TYLENOL) 650 mg ORAL q 6 H PRN albuterol 2.5 mg /3 mL (0.083 %) 2.5 mg (PROVENTIL) 2.5 mg INHALATION q 6 H PRN amLODIPine 10 mg tab(s) (NORVASC) 10 mg ORAL DAILY atorvastatin 20 mg tab(s) (LIPITOR) 20 mg ORAL DAILY budesonide 0.5 mg/2 mL 0.5 mg (PULMICORT) 0.5 mg INHALATION BID docusate sodium 100 mg cap(s) (COLACE) 100 mg ORAL BID ipratropium-albuterol 3 mL nebulizer solution (DUONEB) 3 mL INHALATION QID lactobacillus rhamnosus 10 billion cell (CULTURELLE) capsule 1 capsule ORAL DAILY levoFLOXacin iv piggyback 750 mg in D5W 150 mL (LEVAQUIN) 750 mg INTRAVENOUS DAILY magnesium hydroxide 400 mg/5 mL 30 mL (MOM) 30 mL ORAL BID PRN metoprolol tartrate (short acting) 25 mg tab(s) (LOPRESSOR) 25 mg ORAL q 12 H nitroglycerin sublingual 0.4 mg tab(s) (NITROQUICK) 0.4 mg SUBLINGUAL q [address] 20 mg tab(s) (PROTONIX) 20 mg ORAL DAILY (6 AM) rivaroxaban 20 mg tab(s) (XARELTO) 20 mg ORAL DAILY wDINNER sodium chloride 0.65 % 2 Winder (AYR, OCEAN) 2 Winder EACH NOSTRIL PRN therapeutic multivitamin with iron (THERAGRAN-M) 1 tablet ORAL DAILY CURRENT ALLERGIES: ALLERGIES Allergen Reactions - Aceon [Perindopril * Other: See Comments Allergy testing - Augmentin [Amoxicil* Intolerance - Colchicine Swelling - Hydrocodone Mental Status Change sweating - Iv Contrast [Iodine] Swelling - Naproxen Other: See Comments Blood pressure went up, sweaty Patient Vitals for the past 24 hrs: BP Temp Temp src Pulse Resp SpO2 Weight 09/26/18 1614 113/66 36.3 ?C (97.3 ?F) Oral 80 20 94 % - 09/26/18 1610 - - - 80 18 - - 09/26/18 1601 - - - 78 18 94 % - 09/26/18 1251 - - - 86 20 93 % - 09/26/18 1135 111/70 36.6 ?C (97.9 ?F) Oral 87 20 91 % - 09/26/18 0817 - - - 104 20 - - 09/26/18 0816 129/64 36.3 ?C (97.3 ?F) Oral 92 18 94 % - 09/26/18 0759 - - - 85 20 96 % - 09/26/18 0530 117/67 36.1 ?C (97 ?F) Temporal Art 69 18 93 % 84.4 kg (186 lb 1.6 oz) 09/26/18 0059 - 36.6 ?C (97.9 ?F) Oral - - - - 09/25/18 2352 109/63 36.3 ?C (97.4 ?F) Temporal Art 77 20 90 % - 09/25/182038 - - - 84 20 - - 09/25/182 106/64 36 ?C (96.8 ?F) Temporal Art 69 18 90 % - 09/25/182030 - - - 80 20 96 % - Intake/Output Summary (Last 24 hours) at 09/26/18 1718 Last data filed at 09/26/18 1530 Gross per 24 hour Intake 1170 ml Output 2075 ml Net -905 ml OBJECTIVE PHYSICAL EXAM: BP 113/66 Pulse 80 Temp (Src) 97.3 (Oral) Resp 20 Ht 5' 9 (1.75m) Wt 186 lb 1.6 oz (84.4kg) SpO2 94% BMI 27.47 kg/(m2). General appearance: well appearing, alert and in no acute distress Respiratory: lungs clear to auscultation no wheezing or rhonchi Cardiovascular: Negative. RRR without murmur, gallop, or rubs. No ectopy, pulses are normal, no peripheral edema Abdomen: Soft, non tender, non distended. Normal bowel sounds. Extremities: No deformities, no clubbing Neurological: Negative for focal neurological deficits, dizziness or syncope. Skin: Negative for lesions, rash, and itching. DATA Diagnostic tests reviewed for today's visit, films/specimens were personally reviewed by me: Most recent labs and imaging results. CBC, Coags, BMP, Mg, Phos Recent Labs 09/26/18 0450 WBC 12.76* HB 13.7 HCT 42.1 PLT 195 NA 135* K 4.4 CHLOR 99 CO2 28 BUN 14 CREAT 0.53* GLUC 179* CA 9.2 MG 2.0 No new radiology testing SIGNATURE: Lenora Dent MD PATIENT NAME: David Briceno DATE: September 26, 2018 TIME: 5:18 PM PAGER/CONTACT #: [phone] PROGRESS Observed: 09/26/2018 Status: COMPLETED Source: [place] 11:09 AM CLINIC OTHER CAMPUS REPOSITORY HNO ID: [id number] Author: Delphine Martines Service: Hospital Medicine Author Type: Physician Type: Progress Notes Filed: 09/26/2018 11:09 AM Note Text: SERVICE DATE: 09/26/2018 SERVICE TIME: 11:09 AM HOSPITAL MEDICINE PROGRESS NOTE SERVICE DATE: 09/15/2018 SERVICE TIME: 3:00PM Primary Care Physician: Tati Medina MD NIGHT AND WEEKEND COVERAGE: Nights: Please contact pager [phone]. HPI: Mr. Briceno is a 73 yo gentleman who has been transferred to [place] ICU from [facility] ED with complaints of shortness of breath. His past medical history includes pulmonary fibrosis (previously has followed w/Dr Hein in [place]) - undetermined etiology, emphysema, HTN, GERD, DVT (Aug 2018) - on Xarelto prior to admission, recently diagnosed rheumatoid arthritis (not on immunosuppressive tx), CAD S/P CABG in 2005. He is a former smoker, 40-50 pack years, quit in 1996. ? Patient states that he has had multiple recent admissions to [facility] for pneumonia - once in April, and then most recently in August. Spent several weeks at [facility] in August 2018, during which time he was treated for pneumonia, ?COPD exacerbation, DVTs - started on Xarelto. Patient states he was treated with steroids, antibiotics, bronchodilators. Still had very high FiO2 requirements at discharge. Family reports requiring 15L/min O2 NC with exertion, 6L/min O2 NC at rest. He was discharged to a facility ([facility]) that they were told could accommodate these needs, however upon arrival, it was determined that the facility would be unable to provide this amount of supplemental oxygen, and he was sent back to the emergency department. He reports that has been experiencing shortness of breath, cough that is occasionally productive of brown sputum (occasionally blood tinged). He reports associated left sided pleuritic discomfort. He denies fever/chills, wheeze, abd pain, nausea, vomiting, diarrhea, lower extremity edema, focal neurologic deficits. ? Patient reports that he was following with Dr. Hein (pulmonary - [place]) for progressively worsening shortness of breath. He was told that he has pulmonary fibrosis, and there had been concern that this could be related to rheumatoid arthritis. He was subsequently referred to rheumatology, and diagnosed with RA several weeks ago. No immunosuppressive therapy has been started. He states he was taking Breo and ProAir at home prior to admission. Patient's family states that he did not require any supplemental oxygen prior to his last hospital admission. He was experiencing dyspnea, however he was still fairly active (ie had been doing yard work, etc). He is a former smoker, 40-50 pack years, quit in 1996. 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 // No acute events overnight. Reviewed CT chest and US LL results. Patient and family reassured. No complaints. SUBJECTIVE: Patient feels better overall, with less SOB since admission though does get SOB with any movement. Attempts to continue to try to wean high flow, was down to 40%, NC trial. Said he has been sleeping well. No worsening cough or congestion, though complains of a couple episodes of sweats since given the Solu-Medrol. Denies chest pain or edema; is on increased Lasix and urinating well he says. He is tolerating meals, with no N/V or abdominal pain. Having normal BMs. He says his son is working on a plan for discharge and family still weighing their options; not wanting to discuss hospice care anymore, and he doesn't want to undergo biopsy/procedure; no transfer wanted. They are waiting on LTAC appeal. MEDICATIONS: Reviewed Objective PHYSICAL EXAM: BP 129/64 Pulse 104 Temp (Src) 97.3 (Oral) Resp 20 Ht 5' 9 (1.75m) Wt 186 lb 1.6 oz (84.4kg) SpO2 94% BMI 27.47 kg/(m2). Physical Exam Performed: GENERAL: Alert, no distress, sitting up in bed, family not present SKIN: Warm, dry. Stage I pressure ulcer bilateral buttock, stage 1pressure ulcer to R ear. EYES: PERRL. EOMI NOSE: NC in place, no erythema. OROPHARYNX: Lips AND mucosa normal. No erythema NECK: Supple, soft LUNGS: Unlabored respirations, rales at bases >L CARDIAC: RRR. Normal S1 and S2; no gallops ABDOMEN: Active BS, abdomen soft, non-tender, ND EXTREMITIES: ESPARZA. Compression devices were in place. No LE edema. No calf tenderness. NEURO: AANDO X3. Normal speech. PULSES: 2+ radial, 2+ PT Lines, Drains, and Airways Line Peripheral 09/11/18 Admission to Hospital Short Left Forearm 20 Gauge 15 days Reviewed lines, drains, AND airways. 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 - Per pulmonology, differential diagnosis of this ILD includes IPF, non specific interstitial pneumonitis (NSIP), rheumatoid lung disease, asbestosis. - BNP done to r/o HF, echocardiogram showed EF 61%, no diastolic dysfunction; is on maintenance Lasix however - CT chest showed multifocal bilateral pulmonary infiltrates on background of severe COPD/emphysema, not deemed pneumonia at this time per pulm; also showed lung nodules; repeat on 09/22 shows mild improvement infiltrates, stable emphyseam - On aerosols, weaning O2 as able, down to 40% high flow yesterday, attempts to wean have been difficult - Was on prednisone - Solu-Medrol course now per pulmonology - Per pulmonology, who is on consult, was to have further evaluation and treatment options discussed at [facility] Interdisciplinary ILD conference but they were unable to connect this week. - LTAC placement denied x 2- family appealing third appeal and reviewing options; initially thought about hospice, now not interested at this time; patient/family declined [facility] [place] transfer, decline lung biopsy; attempting to find SNF to handle O2 needs as we wean - Awaiting safe plan for discharge - anticipate will be here through the holiday ILD (interstitial lung disease) ([facility]) 09/14/2018 - Present Current Assessment AND Plan As noted Pulmonology is following Patient declines [facility] transfer; declines lung biopsy DVT (deep venous thrombosis) ([facility]) 08/06/2018 - Present Current Assessment AND Plan - Recent diagnosis of DVT at outside facility - Diagnosed 08/2018, with bilateral LE involvement per family - ?provoked in setting of recent prior hospitalizations - LE DVT US was negative here on admission to ICU; no new symptoms - Continue Xarelto Arthritis 09/05/2018 - Present Current Assessment AND Plan - Possible RA - Recent diagnosis, with positive RF - Not on meds, further outpatient management, rheumatology follow up Abnormal CT scan, gastrointestinal tract 09/15/2018 - Present Current Assessment AND Plan As above, prior abnormal CT; recommended MRI pancreas with contrast at some point to evaluate - can address when respiratory status improves Leukocytosis 09/15/2018 - Present Current Assessment AND Plan Follow up labs had shown elevated WBC, repeat today shows improvement; no fever Is on steroids No evidence new infection at this time; empiric Levaquin ordered by pulmonology Monitoring Hypertension, essential 09/05/2018 - Present Current Assessment AND Plan Assessment: SBP 120s PLAN: Continue current meds with Norvasc AND Lasix; monitor BP MGUS (monoclonal gammopathy of unknown significance) Unknown - Present Secondary pulmonary arterial hypertension (HCC) 09/05/2018 - Present Medication and Non-Pharmacologic VTE Prophylaxis/Anticoagulants Anticoagulant AND Antiplatelet Medications Start Dose Route Frequency Ordered Stop 09/11/18 1730 rivaroxaban 20 mg tab(s) (XARELTO) (rivaroxaban DVT/PE CONTINUATION of therapy beyond 21 days) 20 mg ORAL DAILY WITH DINNER 09/11/18 1729 -- 09/11/18 1715 activity - mobilize patient (fl,oh) VTE Prophylaxis: VTE prophylaxis appropriate Plan of care discussed with: Patient, Care Management and RN SIGNATURE: Delphine Martines MD PATIENT NAME: David Briceno DATE: September 26, 2018 TIME: 11:09 AM PAGER/CONTACT #: [phone] CBC Collected: 09/26/2018 Status: F Source: [place] 4:50 AM [facility] OTHER CAMPUS REPOSITORY TYPE CODE TESTS RESULT OUT OF REFERENCE UNITS RANGE LAB WBC 3.70-11.00 k/uL WBC High 12.76 LAB RBC 4.20-6.00 m/uL RBC 4.61 LAB HGB 13.0-17.0 g/dL Hemoglobin 13.7 LAB HCT 39.0-51.0 % Hematocrit 42.1 LAB MCV 80.0-100.0 fL MCV 91.3 LAB MCH 26.0-34.0 pG MCH 29.7 LAB MCHC 30.5-36.0 g/dL MCHC 32.5 LAB RDWCV 11.5-15.0 % RDW-CV High 15.7 LAB PLTCT 150-400 k/uL Platelet Count 195 LAB MPV 9.0-12.7 fL MPV 9.8 Performed By: #### CBC, BMP, MG1 #### [facility] [address] [place] [address] BASIC METABOLIC PANL Collected: 09/26/2018 Status: F Source: [place] 4:50 AM [facility] REPOSITORY TYPE CODE TESTS RESULT OUT OF REFERENCE UNITS RANGE LAB GLU 74-99 mg/dL High Glucose 179 Result Comment: The [place] Diabetes Association (ADA) provides guidance for cutoff values for fasting glucose and random glucose. The ADA defines fasting as no caloric intake for at least 8 hours. Fas ting plasma glucose results between 100 to 125 mg/dL indicate increased risk for diabetes (prediabetes). Fasting plasma glucose results greater than or equal to 126 mg/dL meet the criteria for diagnosis of diabetes. In the absence of unequivocal hyperglycemia, results should be confirmed by repeat testing. In a patient with classic symptoms of hyperglycemia or hyperglycemic crisis, random plasma glucose results greater than or equal to 200 mg/dL meet the criteria for diagnosis of diabetes. Reference: Standards of Medical Care in Diabetes 2016, [place] Diabetes Association. Diabetes Care. 2016.39(Suppl 1). LAB BUN 9-24 mg/dL BUN 14 LAB CRET 0.73-1.22 mg/dL Creatinine Low 0.53 LAB NA 136-144 mmol/L Sodium Low 135 LAB K 3.7-5.1 mmol/L Potassium 4.4 LAB CL 97-105 mmol/L Chloride 99 LAB CO2 22-30 mmol/L CO2 28 LAB AGAP 9-18 mmol/L Anion Gap Low 8 LAB CA 8.5-10.2 mg/dL Calcium, Total 9.2 LAB GFRAA eGFR- Amer. >60 LAB GFRNAA . eGFR-All Other Races >60 Result Comment: eGFR (Estimated GFR) Units of measure: mL/min/1.73 meters squared eGFR is derived from the reexpressed MDRD Study equation using the following parameters: serum creatinine, age, gender and race. The creatinine assay has been calibrated to be traceable to IDMS. An eGFR <60 mL/min/1.73m2 for >3 months is consistent with chronic kidney disease. Refer to KDOQI guidelines for clinical interpretation. In patients with unstable renal function, e.g. those with acute kidney injury, the eGFR may not accurately reflect actual GFR. Performed By: #### CBC, BMP, MG1 #### [facility] [address] [place] [phone] MAGNESIUM Collected: 09/26/2018 Status: F Source: [place] 4:50 AM [facility] OTHER CAMPUS REPOSITORY TYPE CODE TESTS RESULT OUT OF REFERENCE UNITS RANGE LAB MG 1.7-2.3 mg/dL Magnesium 2.0 Performed By: #### CBC, BMP, MG1 #### [facility] [address] [place] [phone] ALPHA 1 ANTITRYPSIN Collected: 09/26/2018 Status: F Source: [place] 4:50 [facility] [place] REPOSITORY TYPE CODE TESTS RESULT OUT OF REFERENCE UNITS RANGE LAB AAT 90-200 mg/dL Alpha 1 antitrypsin 134 Performed By: #### AAT, RF, ANCA, CANBLL, PANBLL, ANAIFS, ANABLL #### [facility] [address] [place] [address] RHEUMATOID FACTOR Collected: 09/26/2018 Status: F Source: [place] 4:50 AM [facility] OTHER [place] REPOSITORY TYPE CODE TESTS RESULT OUT OF REFERENCE UNITS RANGE LAB RF <16 IU/mL High Rheumatoid 37 Factor Performed By: #### AAT, RF, ANCA, CANBLL, PANBLL, ANAIFS, ANABLL #### [facility] [address] [place], [place] [address] [email or web address] Collected: Status: F Source: [place] 09/26/2018 4:50 AM [facility] OTHER CAMPUS REPOSITORY TYPE CODE TESTS RESULT OUT OF REFERENCE UNITS RANGE LAB CANCAF Negative C-ANCA Negative Fluorescence LAB PANCAF Negative P-ANCA Negative Fluorescence LAB CANCA <1.0 AI Proteinase-3 Ab <0.2 LAB PANCA <1.0 AI Myeloperoxidase <0.2 Ab LAB ANCINT ANCA Interpretation Equivocal staining seen on the screening ethanol slide but negative results on follow up confirmatory testing. LAB ANCSTF Staff Review Reviewed by Chuck Watson MD ([id number]) Performed By: #### AAT, RF, ANCA, CANBLL, PANBLL, ANAIFS, ANABLL #### [facility] [address] [id number] CANCA REFLEX Collected: 09/26/2018 Status: F Source: [place] 4:50 AM [facility] REPOSITORY TYPE CODE TESTS RESULT OUT OF REFERENCE UNITS RANGE LAB CANBLL CANCA Billed for Reflex services performed Performed By: #### AAT, RF, ANCA, CANBLL, PANBLL, ANAIFS, ANABLL #### [facility] [address] [address] PANCA REFLEX Collected: 09/26/2018 Status: F Source: [place] 4:50 AM [facility] REPOSITORY TYPE CODE TESTS RESULT OUT OF REFERENCE UNITS RANGE LAB PANBLL PANCA Billed for Reflex services performed Performed By: #### AAT, RF, ANCA, CANBLL, PANBLL, ANAIFS, ANABLL #### [facility] [address] [phone] JEAN PAUL BY IFA Collected: 09/26/2018 Status: F Source: [place] 4:50 AM [facility] REPOSITORY TYPE CODE TESTS RESULT OUT OF RANGE REFERENCE UNITS LAB ANASC Negative Abnormal Alert JEAN PAUL Positive Result Comment: Normal range : negative at <1:80 serum dilution. LAB PEYTON Negative Abnormal 1:160 Alert JEAN PAUL Titer LAB ANAP JEAN PAUL Pattern Atypical speckled Performed By: #### AAT, RF, ANCA, CANBLL, PANBLL, ANAIFS, ANABLL #### [facility] [address] [id number] JEAN PAUL IFA TITER BILL Collected: 09/26/2018 Status: F Source: [place] 4:50 AM [facility] OTHER [place] REPOSITORY TYPE CODE TESTS RESULT OUT OF REFERENCE UNITS RANGE LAB ANABLL JEAN PAUL Billed for IFA Titer services Bill performed Performed By: #### AAT, RF, ANCA, CANBLL, PANBLL, ANAIFS, ANABLL #### [facility] [address] [place] [address] NURSING PROG Observed: 09/26/2018 Status: COMPLETED Source: [place] 12:59 AM [facility] REPOSITORY HNO ID: [id number] Author: Smita (Rn) Owen Massey RN Service: (none) Author Type: Registered Nurse Type: Nursing Progress Note Filed: 09/26/2018 1:06 AM Note Text: Nursing Progress Note Patient Name: David Briceno Patient Location: [place] [id number] Daily Note: Pt put his light on and c/o sweating. Pt did have this episode when he had his prednisone. T 97.98, BS 215. Pt did have a dose of SoluMedrol. Pt stated that all of a sudden he just started sweating. Diaphoresis is one of the SE of SoluMedrol per resource (Lexic[employer]). Pt made aware. Pt denies any SOB, any tightening of his airway or swelling. Pt aware to let the nurse knows if he experiences any other symptoms. Pt is not in distress at this time. Safety maintained. This note was completed by: Smita Ricardo RN CONSULT PROG Observed: 09/25/2018 Status: COMPLETED Source: [place] 11:42 AM [facility] OTHER [place] REPOSITORY HNO ID: [id number] Author: Lenora Dent Service: Pulmonary Disease Author Type: Physician Type: Consult Progress Note Filed: 09/25/2018 12:55 PM Note Text: Attending Note I have personally performed a face to face assessment of the patient and have reviewed the PA/METAL HANGER note. My fan findings include: Assessment/Plan are Acute on chronic hypoxemic respiratory failure on high flow was able to wean down to 40% since last night. COPD exacerbation pulmonary fibrosis with superimposed pneumonia that has already been treated at [facility] with IV antibiotics Recent diagnosis with rheumatoid arthritis Refused transfer to [facility] or [place] for open lung biopsy Dr. Barker was planing to discuss this case at the ILD conference but he could not connect through Skype Pending LTAC appeal for approval Continue duo nebs and budesonide nebulize Will give a course of IV Solu Medrol (for 48 hours then switch back to) prednisone) along with IV antibiotics (empiric course for 7 days Continue Lasix 40 mg by mouth daily Continue anticoagulation High oxygen requirement with desaturation on minimal exertion, makes bronchoscopies procedures a high risk for complications like respiratory failure repeat CT scan chest showing mild improvement in airspace disease with stable emphysema and fibrosis with stable enlarged lymphadenopathy. ? I have spent time talking to the patient and his and I also called his son at [phone] and discussed with them transferring him to [facility] versus [facility] for surgical lung biopsy since he is not getting any better. ?The son . Patient and family are?against?any invasive procedure because of the risk of respiratory failure in the postop period. ?He is also against?transferring his father to hospice.?He requested an appeal from the insurance to cover LTAC stay. ?I also discussed the case with Didi Jesus from case management Continue same management for now, try to taper oxygen supplemention down as tolerated to keep Sat O2 between?88-92% Other additions or changes: None I spent 35 minutes in the visit, with more than 50% of the total [id number] time of the visit in counseling / coordination of care. 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 Complete course of empiric antibiotics and systemic steroids Unable to be discussed at ILD conference this week. Supplemental O2 as needed, target?SpO2 ~90%. ?Wean as able. Continue nebulized budesonide 0.5 mg BID, DuoNeb QID. Encourage bronchopulmonary hygiene, incentive spirometry. Continue anticoagulation --> Xarelto. Continue diuresis, Lasix 20 mg PO QD. Daily PPI, pantoprazole. Consider MRI pancreas per CT chest report, non-emergent. Plan discussed in detail with patient, RN and primary attending. Patient verbalizes understanding and is in agreement with the current management plan. Total time spent in patient care includes but is not limited to patient/ family discussions, collaborative discussions with other healthcare providers, review of medical records, review of laboratory tests, radiology images/ results, microbiology and pathology data. SUBJECTIVE CHIEF COMPLAINT: Shortness of breath INTERVAL HPI: David Briceno is a 73 year old male who reports he feels well today. SOB with exertion, desaturates when he moves or uses commode. On 40% high-flow O2. Denies fevers, chills, night sweats, chest pain, SOB, abdominal pain, n/v/d, or leg swelling. MEDICATIONS: Current Facility-Administered Medications: acetaminophen 650 mg tab(s) (TYLENOL) 650 mg ORAL q 6 H PRN albuterol 2.5 mg /3 mL (0.083 %) 2.5 mg (PROVENTIL) 2.5 mg INHALATION q 6 H PRN amLODIPine 10 mg tab(s) (NORVASC) 10 mg ORAL DAILY atorvastatin 20 mg tab(s) (LIPITOR) 20 mg ORAL DAILY budesonide 0.5 mg/2 mL 0.5 mg (PULMICORT) 0.5 mg INHALATION BID docusate sodium 100 mg cap(s) (COLACE) 100 mg ORAL BID furosemide 20 mg tab(s) (LASIX) 20 mg ORAL DAILY ipratropium-albuterol 3 mL nebulizer solution (DUONEB) 3 mL INHALATION QID lactobacillus rhamnosus 10 billion cell (CULTURELLE) capsule 1 capsule ORAL DAILY levoFLOXacin iv piggyback 750 mg in D5W 150 mL (LEVAQUIN) 750 mg INTRAVENOUS DAILY magnesium hydroxide 400 mg/5 mL 30 mL (MOM) 30 mL ORAL BID PRN methylPREDNISolone sod succinate(PF) 60 mg injection (SOLU- Medrol) 60 mg INTRAVENOUS q 6 H metoprolol tartrate (short acting) 25 mg tab(s) (LOPRESSOR) 25 mg ORAL q 12 H nitroglycerin sublingual 0.4 mg tab(s) (NITROQUICK) 0.4 mg SUBLINGUAL q [address] 20 mg tab(s) (PROTONIX) 20 mg ORAL DAILY (6 AM) rivaroxaban 20 mg tab(s) (XARELTO) 20 mg ORAL DAILY wDINNER sodium chloride 0.65 % 2 Winder (AYR, OCEAN) 2 Winder EACH NOSTRIL PRN therapeutic multivitamin with iron (THERAGRAN-M) 1 tablet ORAL DAILY CURRENT ALLERGIES: ALLERGIES Allergen Reactions - Aceon [Perindopril * Other: See Comments Allergy testing - Augmentin [Amoxicil* Intolerance - Colchicine Swelling - Hydrocodone Mental Status Change sweating - Iv Contrast [Iodine] Swelling - Naproxen Other: See Comments Blood pressure went up, sweaty Patient Vitals for the past 24 hrs: BP Temp Temp src Pulse Resp SpO2 Weight 09/25/18 1122 111/66 36.7 ?C (98.1 ?F) Oral 72 16 95 % - 09/25/18 0757 - - - 88 20 - - 09/25/18 0748 - - - 84 20 93 % - 09/25/18 0730 119/70 36.8 ?C (98.2 ?F) Oral 75 18 95 % - 09/25/18 0449 114/64 36.4 ?C (97.6 ?F) Temporal Art (!) 53 16 99 % 84.5 kg (186 lb 3.2 oz) 09/24/18 2319 103/59 36.4 ?C (97.5 ?F) Temporal Art 60 18 96 % - 09/24/182038 105/59 - - 69 - - - 09/24/182024 - - - 82 18 - - 09/24/182007 - - - 80 18 94 % - 09/24/18 1930 104/59 36.5 ?C (97.7 ?F) Oral 75 18 96 % - 09/24/18 1602 - - - 77 20 - - 09/24/18 1552 - - - 75 20 96 % - 09/24/18 1521 102/65 36.6 ?C (97.9 ?F) Oral 71 18 95 % - 09/24/18 1153 109/63 36.7 ?C (98.1 ?F) Oral 88 20 96 % - Intake/Output Summary (Last 24 hours) at 09/25/18 1142 Last data filed at 09/25/18 0900 Gross per 24 hour Intake 1110 ml Output 1925 ml Net -815 ml OBJECTIVE PHYSICAL EXAM: BP 111/66 Pulse 72 Temp (Src) 98.1 (Oral) Resp 16 Ht 5' 9 (1.75m) Wt 186 lb 3.2 oz (84.5kg) SpO2 95% BMI 27.48 kg/(m2). O2: 40% HF General appearance: well appearing, alert and in no acute distress Nose/Sinuses: Negative Oropharynx: Lips, tongue, and buccal mucosa pink and moist. Respiratory: Respirations are labored. Scattered crackles bilaterally. Cardiovascular: Regular rate and rhythm Extremities: Peripheral pulses intact bilaterally. No peripheral edema. Psych: Cooperative with exam, answerers questions appropriately. DATA Diagnostic tests reviewed for today's visit, films/specimens were personally reviewed by me: Most recent labs and imaging results. Component Latest Ref Rng AND Units 09/16/2018 09/17/2018 09/19/2018 09/21/2018 09/23/2018 Glucose 74 - 99 mg/dL 121 (H) 120 (H) 108 (H) BUN 9 - 24 mg/dL 13 14 14 Creatinine 0.73 - 1.22 mg/dL 0.57 (L) 0.62 (L) 0.59 (L) Sodium 136 - 144 mmol/L 140 138 137 Potassium 3.7 - 5.1 mmol/L 4.5 4.2 4.1 Chloride 97 - 105 mmol/L 100 99 99 CO2 22 - 30 mmol/L 30 28 30 Anion Gap 9 - 18 mmol/L 10 11 8 (L) Calcium 8.5 - 10.2 mg/dL 8.7 8.4 (L) 8.5 eGFR- >60 >60 >60 eGFR-All Other Races . >60 >60 >60 WBC 3.70 - 11.00 k/uL 16.53 (H) 15.65 (H) 13.98 (H) 16.42 (H) RBC 4.20 - 6.00 m/uL 4.60 4.26 4.40 4.58 Hemoglobin 13.0 - 17.0 g/dL 13.7 12.6 (L) 13.0 13.5 Hematocrit 39.0 - 51.0 % 41.9 38.4 (L) 40.4 41.7 MCV 80.0 - 100.0 fL 91.1 90.1 91.8 91.0 MCH 26.0 - 34.0 pG 29.8 29.6 29.5 29.5 MCHC 30.5 - 36.0 g/dL 32.7 32.8 32.2 32.4 RDW-CV 11.5 - 15.0 % 14.4 14.6 14.9 15.3 (H) Platelet Count 150 - 400 k/uL 181 181 210 262 MPV 9.0 - 12.7 fL 10.4 10.1 9.9 9.6 Magnesium 1.7 - 2.3 mg/dL 2.2 NT Pro BNP <450 pg/mL 127 CT chest non-contrast 09/22/18: IMPRESSION: Mild improvement in infiltrates. Stable emphysema and fibrosis. Stable borderline enlarged lymph nodes There is coronary artery calcification consistent with coronary artery disease. SIGNATURE: Ronda Vieira PA-C PATIENT NAME: David Briceno DATE: September 25, 2018 TIME: 11:42 AM [facility] Observed: 09/25/2018 Status: COMPLETED Source: [place] 11:19 AM CLINIC OTHER CAMPUS REPOSITORY O ID: [id number] Author: Pan LylelaChaplain Kenji Service: Spiritual Care Author Type: Lithograph Designer Type: Allied Health Filed: 09/25/2018 11:23 AM Note Text: SPIRITUALCARE Spiritual Care Visit- Brief Note Name: David Briceno Date: September 25, 2018 Notes: Visited pt, , and daughter per pt self-referral for stress. Pt expressed disappointment that he does not expect to be home for [place]. Pt also expressed generalized frustration over the way the world is going. Provided active listening, spiritual presence, theological reflection, and prayer. Pt indicated that he is a very spiritual Buddhism, but he is not episcopalian. Pt requested ongoing spiritual care. Lithograph Designer Signature: Chaplain Cameron To contact the Spiritual Care Department: Please call [phone] or Page the On-Call Lithograph Designer at pager [phone] Thank you for the opportunity to be of service. This is an electronically created document. IF PRINTED, PLEASE DO NOT REMOVE FROM THE CHART OR MODIFY PRINTED COPY. PROGRESS Observed: 09/25/2018 Status: COMPLETED Source: [place] 10:54 AM CLINIC OTHER CAMPUS REPOSITORY HNO ID: [id number] Author: Delphine Martines Service: Hospital Medicine Author Type: Physician Type: Progress Notes Filed: 09/25/2018 2:43 PM Note Text: SERVICE DATE: 09/25/2018 SERVICE TIME: 10:54 AM HOSPITAL MEDICINE PROGRESS NOTE SERVICE DATE: 09/15/2018 SERVICE TIME: 3:00PM Primary Care Physician: Tati Medina MD NIGHT AND WEEKEND COVERAGE: Nights: Please contact pager [phone]. HPI: Mr. Briceno is a 73 yo gentleman who has been transferred to [place] ICU from [facility] ED with complaints of shortness of breath. His past medical history includes pulmonary fibrosis (previously has followed w/Dr Hein in [place]) - undetermined etiology, emphysema, HTN, GERD, DVT (Aug 2018) - on Xarelto prior to admission, recently diagnosed rheumatoid arthritis (not on immunosuppressive tx), CAD S/P CABG in 2005. He is a former smoker, 40-50 pack years, quit in 1996. ? Patient states that he has had multiple recent admissions to [facility] for pneumonia - once in April, and then most recently in August. Spent several weeks at [facility] in August 2018, during which time he was treated for pneumonia, ?COPD exacerbation, DVTs - started on Xarelto. Patient states he was treated with steroids, antibiotics, bronchodilators. Still had very high FiO2 requirements at discharge. Family reports requiring 15L/min O2 NC with exertion, 6L/min O2 NC at rest. He was discharged to a facility ([facility]) that they were told could accommodate these needs, however upon arrival, it was determined that the facility would be unable to provide this amount of supplemental oxygen, and he was sent back to the emergency department. He reports that has been experiencing shortness of breath, cough that is occasionally productive of brown sputum (occasionally blood tinged). He reports associated left sided pleuritic discomfort. He denies fever/chills, wheeze, abd pain, nausea, vomiting, diarrhea, lower extremity edema, focal neurologic deficits. ? Patient reports that he was following with Dr. Hein (pulmonary - [place]) for progressively worsening shortness of breath. He was told that he has pulmonary fibrosis, and there had been concern that this could be related to rheumatoid arthritis. He was subsequently referred to rheumatology, and diagnosed with RA several weeks ago. No immunosuppressive therapy has been started. He states he was taking Breo and ProAir at home prior to admission. Patient's family states that he did not require any supplemental oxygen prior to his last hospital admission. He was experiencing dyspnea, however he was still fairly active (ie had been doing yard work, etc). He is a former smoker, 40-50 pack years, quit in 1996. 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 // No acute events overnight. Reviewed CT chest and US LL results. Patient and family reassured. No complaints. SUBJECTIVE: Patient feels better overall, but same as yesterday. Still SOB with any movement, attempts continue to try to wean high flow, remains at 45%. Said he has been sleeping well. No worsening cough or congestion, though complains of a couple episodes of sweats since yesterday, no chills. Denies chest pain or edema; is back on Lasix and urinating well he says. He is tolerating meals, with no N/V or abdominal pain. Having normal BMs. He says his son is working on a plan for discharge and family still weighing their options; not wanting to discuss hospice care anymore, and he doesn't want to undergo biopsy/procedure; no transfer wanted. MEDICATIONS: Reviewed Objective PHYSICAL EXAM: BP 119/70 Pulse 88 Temp (Src) 98.2 (Oral) Resp 20 Ht 5' 9 (1.75m) Wt 186 lb 3.2 oz (84.5kg) SpO2 93% BMI 27.48 kg/(m2). Physical Exam Performed: GENERAL: Alert, no distress, sitting up in bed, family not present SKIN: Warm, dry. Has stage I pressure ulcer bilateral buttock, stage 1pressure ulcer to R ear. EYES: PERRL. EOMI OROPHARYNX: Lips AND mucosa normal. No erythema NECK: Supple, soft LUNGS: Unlabored on high-flow, rales at bases >L CARDIAC: Normal S1 and S2; no gallops ABDOMEN: Active BS, abdomen soft, non-tender, no distention EXTREMITIES: No LE edema. No calf tenderness. Good capillary refill NEURO: AANDO X3 PULSES: 2+ radial, 2+ PT Lines, Drains, and Airways Line Peripheral 09/11/18 Admission to Hospital Short Left Forearm 20 Gauge 14 days Reviewed lines, drains, AND airways. Need to be continued during admission ASSESSMENT AND PLAN Assessment AND Plan, all Hosp Problems Active Hospital Problems as of 09/25/2018 Noted - Resolved Hospital Acute respiratory failure (HCC) 09/11/2018 - Present Current Assessment AND Plan - Patient with acute on chronic hypoxemic respiratory failure secondary to AECOPD and concomitant pulmonary fibrosis, 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 - Per pulmonology, differential diagnosis of this ILD includes IPF, non specific interstitial pneumonitis (NSIP), rheumatoid lung disease, asbestosis. - BNP done to r/o HF, echocardiogram showed EF 61%, no diastolic dysfunction; is on maintenance Lasix - CT chest showed multifocal bilateral pulmonary infiltrates on background of severe COPD/emphysema, not deemed pneumonia at this time per pulm; also showed lung nodules; repeat on 09/22 shows mild improvement infiltrates, stable emphyseam - On aerosols, weaning O2 as able, remains on 45% high flow, attempting to wean difficult - Is on prednisone - Per pulmonology, who is on consult, to have further evaluation and treatment options discussed at [facility] Interdisciplinary ILD conference but they were unable to connect this week. - LTAC placement denied x 2- family appealing third appeal and reviewing options; initially thought about hospice, now not interested at this time; patient/family declined [facility] [place] or [place] transfer, decline lung biopsy; attempting to find SNF to handle O2 needs - Awaiting safe plan for discharge ILD (interstitial lung disease) (HCC) 09/14/2018 - Present Current Assessment AND Plan As per above Pulmonology is following Patient declines lung biopsy DVT (deep venous thrombosis) (HCC) 08/06/2018 - Present Current Assessment AND Plan - Recent diagnosis of DVT at outside facility - Diagnosed 08/2018, with bilateral LE involvement per family - ?provoked in setting of recent prior hospitalizations - LE DVT US was negative here on admission to ICU; no new symptoms - Continue Xarelto Arthritis 09/05/2018 - Present Current Assessment AND Plan - Possible RA - Recent diagnosis, with positive RF - Not on meds, further outpatient management, rheumatology follow up Abnormal CT scan, gastrointestinal tract 09/15/2018 - Present Current Assessment AND Plan As above, prior abnormal CT; recommended MRI pancreas with contrast at some point to evaluate - can address when respiratory status improves Leukocytosis 09/15/2018 - Present Current Assessment AND Plan Follow up labs had shown elevated WBC, repeat in am to follow up Is on steroids; reports diaphoresis since yesterday, no fever. No evidence new infection at this time Monitor Hypertension, essential 09/05/2018 - Present Current Assessment AND Plan Assessment: SBP 110s PLAN: Continue current meds with Norvasc AND Lasix; monitor BP MGUS (monoclonal gammopathy of unknown significance) Unknown - Present Secondary pulmonary arterial hypertension (HCC) 09/05/2018 - Present Stage I pressure ulcer to bilateral buttock and stage 1 pressure ulcer to right ear - Continue local care. Has pressure re-distribution bed and q2 turning schedule. ?- Suspected present on admission, as a consequence of patient with recent hospitalizations outside facilities ? Medication and Non-Pharmacologic VTE Prophylaxis/Anticoagulants Anticoagulant AND Antiplatelet Medications Start Dose Route Frequency Ordered Stop 09/11/18 1730 rivaroxaban 20 mg tab(s) (XARELTO) (rivaroxaban DVT/PE CONTINUATION of therapy beyond 21 days) 20 mg ORAL DAILY WITH DINNER 09/11/18 1729 -- 09/11/18 1715 activity - mobilize patient (ak,oh) VTE Prophylaxis: VTE prophylaxis appropriate Plan of care discussed with: Patient, Care Management and RN SIGNATURE: Delphine Martines MD PATIENT NAME: David Briceno DATE: September 25, 2018 TIME: 10:54 AM PAGER/CONTACT #: [phone] CASE MANAGEM Observed: 09/25/2018 Status: COMPLETED Source: [place] 9:58 AM CLINIC OTHER CAMPUS REPOSITORY HNO ID: [id number] Author: Yola Boyd (Sw) Service: Care Management Author Type: Drywall Finishing Foreman Type: Care Mgt Progress Note Filed: 09/25/2018 3:04 PM Note Text: CARE MANAGEMENT PROGRESS NOTE SERVICE DATE: 09/25/2018 SERVICE TIME: 9:58 AM LOS: 14 days TRAFFIC EXPERT met with pt and pt's family. Pt gave permission to speak in front of family. TRAFFIC EXPERT followed up with Hospice consult. Per family and pt. Pt is NOT DYING, anyone on Hospice dies, he is NOT DYING. TRAFFIC EXPERT listened with HEART and attempted to assist in better understanding the Hospice Philosophy, including quality of life. Pt's family stated that Hospice spoke with pt's son and indicated that they could NOT accommodate pt's O2 needs? TRAFFIC EXPERT reached out to Hospice for clarification regarding this matter. Updated pt and family that both [facility] and [facility] SNF can accept pt and we are awaiting to discern if SNF's can accommodate pt's High O2 needs. TRAFFIC EXPERT encouraged family to go visit the facilities and indicated it may assist them in finding comfort if they see for themselves what each of the SNF's could offer for pt, as they have all communicated their fears associated with SNF facilities, due to a prior frightening event that occurred. TRAFFIC EXPERT listened with HEART, pt stated he, didn't care if he was here through the holidays, because at least he can breathe here. TRAFFIC EXPERT reassured them there is a Mireya Meal that is offered to family's in our dining quinn and even noted that the gift store had all Mireya items 40% off today to assist pt enjoy the [place] Holiday as best he can. Family and pt were appreciative. TRAFFIC EXPERT spoke with , who clarified that he had several conversations with the pt re. Goals of care, including hospice services. He indicated pt seemed to be on board, and then the plan became deflated one hospice spoke with pt's son. TRAFFIC EXPERT placed call to pt's son to provide ongoing support and clarification as to the above. TRAFFIC EXPERT will continue to follow and support. SIGNATURE: CÉSAR Vick PATIENT NAME: David Briceno DATE: September 25, 2018 TIME: 9:58 AM PAGER/CONTACT #: [phone] Observed: 09/25/2018 Status: F Source: [place] RESPIRATORY CULT/STAIN 9:00 AM CLINIC OTHER CAMPUS REPOSITORY Smear Result - Few Gram positive cocci --> ABNORMAL ALERT Many Polymorphonuclear leukocytes Few Epithelial cells Culture Result - Few Normal respiratory mike present Performed By: #### RCULST #### [facility] [address] [place], [place] [address] PROGRESS Observed: 09/24/2018 Status: COMPLETED Source: [place] 2:18 PM CLINIC OTHER CAMPUS REPOSITORY HNO ID: [id number] Author: Caitie (Rn) ALEJO Mcduffie Service: Care Management Author Type: Registered Nurse Type: Progress Notes Filed: 09/24/2018 2:29 PM Note Text: CARE MANAGEMENT PROGRESS NOTE SERVICE DATE: 09/24/2018 SERVICE TIME: 2:00pm LOS: 13 days Unit case checker, Didi RN, escalated LTACH denial to configuration release manager. Escalated case of LTACH denial to PA Dr. Ro who will discuss with [employer] PA Dr. Trevino. Reviewed EMR; per MD note, case was to be discussed at ILD conference today by Dr. Barker but this did not occur; called and spoke to Gricelda at [facility]; a peer to peer between MD and Insurance MD occurred on the Sep which was not successful; Son was to call insurance and pursue; not clear if this occurred; per Gricelda, next step to appealing is a formal letter be written and sent to insurance; requested she write the letter and request an expedited appeal process; Gricelda stated she will complete by tomorrow; per Gricelda, insurance has 72 business hours in which to make a decision; Also placed call to [place], case check[facility], to request assistance with this process; updated Didi RN who will update family; requested SW reach out to patient and family to offer support, assistance as needed; case management to follow. SIGNATURE: Caitie Mcduffie RN [facility] PATIENT NAME: David Briceno DATE: September 24, 2018 TIME: 2:18 PM PAGER/CONTACT #: [phone] CONSULT PROG Observed: 09/24/2018 Status: COMPLETED Source: [place] 11:34 AM CLINIC OTHER CAMPUS REPOSITORY HNO ID: [id number] Author: Lenora Dent Service: Pulmonary Disease Author Type: Physician Type: Consult Progress Note Filed: 09/24/2018 1:41 PM Note Text: Attending Note I have personally performed a face to face assessment of the patient and have reviewed the PA/METAL HANGER note. My fan findings include: Assessment/Plan are Acute on chronic hypoxemic respiratory failure on high flow 45%. COPD exacerbation pulmonary fibrosis with superimposed pneumonia that has already been treated at [facility] with IV antibiotics Recent diagnosis with rheumatoid arthritis Refused transfer to [facility] or [place] for open lung biopsy Dr. Barker was planing to discuss this case at the ILD conference today but he could not connect through [employer] Pending LTAC appeal for approval Continue duo nebs and budesonide nebulized Continue tapering prednisone by 10 mg every 3 days then discontinue Continue Lasix 40 mg IV by mouth daily Continue anticoagulation I will give him an empiric course of antibiotics since he is not getting any better High oxygen requirement with desaturation on minimal exertion, makes bronchoscopies procedures a high risk for complications like respiratory failure repeat CT scan chest showing mild improvement in airspace disease with stable emphysema and fibrosis with stable enlarged lymphadenopathy. I have spent time talking to the patient and his and I also called his son at [phone] and discussed with them transferring him to [facility] versus [facility] for surgical lung biopsy since he is not getting any better. ?The son . Patient and family are against any invasive procedure because of the risk of respiratory failure in the postop period. ?He is also against?transferring his father to hospice.?He requested an appeal from the insurance to cover LTAC stay. ?I also discussed the case with Didi Jesus from case management Continue same management for now, try to taper oxygen supplemention down as tolerated to keep Sat O2 between 88-92% Other additions or changes: None I spent 35 minutes in the visit, with more than 50% of the total ivyx-xg-roos time of the visit in counseling / coordination of care. 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 Discussed transfer to [facility] or [facility] main for biopsy for more specific diagnosis, but patient and family are reluctant secondary to risks associated w/invasive procedure. Unable to be discussed at ILD conference this AM. Supplemental O2 as needed, target?SpO2 ~90%. ?Wean as able. Continue nebulized budesonide 0.5 mg BID, DuoNeb QID. Continue?prednisone 40 mg daily. Encourage bronchopulmonary hygiene, incentive spirometry. Continue anticoagulation --> Xarelto. Continue diuresis, Lasix 20 mg PO QD. Daily PPI, pantoprazole. Consider MRI pancreas per CT chest report, non-emergent. Plan discussed in detail with patient, RN and primary attending. Patient verbalizes understanding and is in agreement with the current management plan. Total time spent in patient care includes but is not limited to patient/ family discussions, collaborative discussions with other healthcare providers, review of medical records, review of laboratory tests, radiology images/ results, microbiology and pathology data. SUBJECTIVE INTERVAL HPI: No acute changes overnight. Still dyspneic with exertion. Desaturates with exertion, low 80s, even with use of hi flow oxygen, 45%. No cough or wheeze. No fevers or chills. No CP or edema. No abd pain. MEDICATIONS: Current Facility-Administered Medications: acetaminophen 650 mg tab(s) (TYLENOL) 650 mg ORAL q 6 H PRN albuterol 2.5 mg /3 mL (0.083 %) 2.5 mg (PROVENTIL) 2.5 mg INHALATION q 6 H PRN amLODIPine 10 mg tab(s) (NORVASC) 10 mg ORAL DAILY atorvastatin 20 mg tab(s) (LIPITOR) 20 mg ORAL DAILY budesonide 0.5 mg/2 mL 0.5 mg (PULMICORT) 0.5 mg INHALATION BID docusate sodium 100 mg cap(s) (COLACE) 100 mg ORAL BID furosemide 20 mg tab(s) (LASIX) 20 mg ORAL DAILY hydrOXYzine pamoate 25 mg cap(s) (VISTARIL) 25 mg ORAL HS PRN ipratropium-albuterol 3 mL nebulizer solution (DUONEB) 3 mL INHALATION QID lactobacillus rhamnosus 10 billion cell (CULTURELLE) capsule 1 capsule ORAL DAILY magnesium hydroxide 400 mg/5 mL 30 mL (MOM) 30 mL ORAL BID PRN metoprolol tartrate (short acting) 25 mg tab(s) (LOPRESSOR) 25 mg ORAL q 12 H nitroglycerin sublingual 0.4 mg tab(s) (NITROQUICK) 0.4 mg SUBLINGUAL q 5 MIN PRN ondansetron orally disintegrating 4 mg tab(s) (ZOFRAN ODT) 4 mg ORAL q 6 H PRN Or ondansetron (PF) 4 mg injection (ZOFRAN) 4 mg INTRAVENOUS q [address] 20 mg tab(s) (PROTONIX) 20 mg ORAL DAILY (6 AM) predniSONE 40 mg tab(s) (DELTASONE) 40 mg ORAL DAILY rivaroxaban 20 mg tab(s) (XARELTO) 20 mg ORAL DAILY wDINNER sodium chloride 0.65 % 2 Winder (AYR, OCEAN) 2 Winder EACH NOSTRIL PRN therapeutic multivitamin with iron (THERAGRAN-M) 1 tablet ORAL DAILY CURRENT ALLERGIES: ALLERGIES Allergen Reactions - Aceon [Perindopril * Other: See Comments Allergy testing - Augmentin [Amoxicil* Intolerance - Colchicine Swelling - Hydrocodone Mental Status Change sweating - Iv Contrast [Iodine] Swelling - Naproxen Other: See Comments Blood pressure went up, sweaty Patient Vitals for the past 24 hrs: BP Temp Temp src Pulse Resp SpO2 Weight 09/24/18 0750 - - - 66 18 95 % - 09/24/18 0731 129/87 36.7 ?C (98.1 ?F) Oral 73 18 93 % - 09/24/18 0600 - - - - - - 81 kg (178 lb 8 oz) 09/24/18 0352 127/71 36.3 ?C (97.3 ?F) Oral (!) 54 20 98 % - 09/23/18 2359 108/59 36.5 ?C (97.7 ?F) Oral 66 20 99 % - 09/23/182126 - - - 77 18 - - 09/23/182109 - - - 79 18 97 % - 09/23/182011 109/65 36.5 ?C (97.7 ?F) Oral 72 18 96 % - 09/23/18 1716 - - - 83 20 - - 09/23/18 1708 - - - 80 20 96 % - 09/23/18 1545 112/65 36.9 ?C (98.4 ?F) Oral 72 18 95 % - 09/23/18 1151 - - - 80 20 - - Intake/Output Summary (Last 24 hours) at 09/24/18 1135 Last data filed at 09/24/18 0800 Gross per 24 hour Intake 804 ml Output 1900 ml Net -1096 ml OBJECTIVE PHYSICAL EXAM: BP 129/87 Pulse 66 Temp (Src) 98.1 (Oral) Resp 18 Ht 5' 9 (1.75m) Wt 178 lb 8 oz (81.0kg) SpO2 95% BMI 26.35 kg/(m2). 45% high flow O2 General appearance: well appearing, alert and in no acute distress Respiratory: lungs clear to auscultation no wheezing or rhonchi Cardiovascular: Negative. RRR without murmur, gallop, or rubs. Abdomen: Soft, non tender, non distended. Extremities: No cyanosis. No peripheral edema. DATA Diagnostic tests reviewed for today's visit, films/specimens were personally reviewed by me: Most recent labs and imaging results. SIGNATURE: Vashti Ireland PA-C PATIENT NAME: David Briceno DATE: September 24, 2018 TIME: 11:35 AM PROGRESS Observed: 09/24/2018 Status: COMPLETED Source: [place] 10:15 AM [facility] OTHER CAMPUS REPOSITORY O ID: [id number] Author: Delphine Martines Service: Hospital Medicine Author Type: Physician Type: Progress Notes Filed: 09/24/2018 10:15 AM Note Text: SERVICE DATE: 09/24/2018 SERVICE TIME: 10:15 AM HOSPITAL MEDICINE PROGRESS NOTE SERVICE DATE: 09/15/2018 SERVICE TIME: 3:00PM Primary Care Physician: Tati Medina MD NIGHT AND WEEKEND COVERAGE: Nights: Please contact pager [phone]. HPI: Mr. Briceno is a 73 yo gentleman who has been transferred to [facility] from [facility] ED with complaints of shortness of breath. His past medical history includes pulmonary fibrosis (previously has followed w/Dr Hein in [place]) - undetermined etiology, emphysema, HTN, GERD, DVT (Aug 2018) - on Xarelto prior to admission, recently diagnosed rheumatoid arthritis (not on immunosuppressive tx), CAD S/P CABG in 2005. He is a former smoker, 40-50 pack years, quit in 1996. ? Patient states that he has had multiple recent admissions to [facility] for pneumonia - once in April, and then most recently in August. Spent several weeks at [facility] in August 2018, during which time he was treated for pneumonia, ?COPD exacerbation, DVTs - started on Xarelto. Patient states he was treated with steroids, antibiotics, bronchodilators. Still had very high FiO2 requirements at discharge. Family reports requiring 15L/min O2 NC with exertion, 6L/min O2 NC at rest. He was discharged to a facility ([facility]) that they were told could accommodate these needs, however upon arrival, it was determined that the facility would be unable to provide this amount of supplemental oxygen, and he was sent back to the emergency department. He reports that has been experiencing shortness of breath, cough that is occasionally productive of brown sputum (occasionally blood tinged). He reports associated left sided pleuritic discomfort. He denies fever/chills, wheeze, abd pain, nausea, vomiting, diarrhea, lower extremity edema, focal neurologic deficits. ? Patient reports that he was following with Dr. Hein (pulmonary - [place]) for progressively worsening shortness of breath. He was told that he has pulmonary fibrosis, and there had been concern that this could be related to rheumatoid arthritis. He was subsequently referred to rheumatology, and diagnosed with RA several weeks ago. No immunosuppressive therapy has been started. He states he was taking Breo and ProAir at home prior to admission. Patient's family states that he did not require any supplemental oxygen prior to his last hospital admission. He was experiencing dyspnea, however he was still fairly active (ie had been doing yard work, etc). He is a former smoker, 40-50 pack years, quit in 1996. 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 // No acute events overnight. Reviewed CT chest and US LL results. Patient and family reassured. No complaints. SUBJECTIVE: Patient feels better overall, but same as yesterday. Still SOB with movement, attempts continue to try to wean high flow, remains at 45%. Said he has slept well. No worsening cough or congestion. Expelled some small blood clots from his nose again yesterday. Denies chest pain or increased edema; is back on Lasix. He is tolerating meals, with no N/V or abdominal pain. (+) BMs. He says his son is working on a plan for discharge and family still weighing their options; not ready for hospice care, and he doesn't want to undergo biopsy/procedure. MEDICATIONS: Reviewed Objective PHYSICAL EXAM: BP 129/87 Pulse 66 Temp (Src) 98.1 (Oral) Resp 18 Ht 5' 9 (1.75m) Wt 178 lb 8 oz (81.0kg) SpO2 95% BMI 26.35 kg/(m2). Physical Exam Performed: GENERAL: Alert, no distress, sitting up in bed, family not present SKIN: Skin color normal. Warm, dry. EYES: PERRL. EOMI OROPHARYNX: Lips and mucosa normal. No erythema NECK: Supple, soft LUNGS: Unlabored on high-flow, rales at bases >L CARDIAC: Normal S1 and S2; no gallops ABDOMEN: (+) BS, abdomen soft AND non-tender EXTREMITIES: No LE edema. No calf tenderness. Good capillary refill NEURO: AANDO X3 PULSES: 2+ radial, 2+ PT Lines, Drains, and Airways Line Peripheral 09/11/18 Admission to Hospital Short Left Forearm 20 Gauge 13 days Reviewed lines, drains, AND airways. Need to be continued during admission ASSESSMENT AND PLAN Assessment AND Plan, all Hosp Problems Active Hospital Problems as of 09/24/2018 Noted - Resolved Hospital Acute respiratory failure (HCC) 09/11/2018 - Present Current Assessment AND Plan - Patient with acute on chronic hypoxemic respiratory failure secondary to AECOPD and concomitant pulmonary fibrosis, in patient with underlying asbestos exposure (former stitch welder) and history of nicotine dependence to cigarettes. - Of note, patient has had recent diagnosis of apparent RA. - Per pulmonology, differential diagnosis of this ILD includes IPF, non specific interstitial pneumonitis (NSIP), rheumatoid lung disease, asbestosis. - BNP r/o HF, echocardiogram showed EF 61%, no diastolic dysfunction - CT chest showed multifocal bilateral pulmonary infiltrates on background of severe COPD/emphysema, not deemed pneumonia at this time per pulm; also showed lung nodules - On aerosols, weaning O2 as able, on high flow, attempting to wean - Is on prednisone - Per pulmonology, who is on consult, to have further evaluation and treatment options discussed at [facility] Interdisciplinary ILD conference this week - LTAC placement denied x 2- family appealing third appeal and reviewing options; initially thought about hospice, now not interested at this time; they had declined [facility] transfer; SNF unable to handle O2 needs - Awaiting safe plan for discharge ILD (interstitial lung disease) ([facility]) 09/14/2018 - Present Current Assessment AND Plan As per above. Pulmonology is following Patient declines biopsy DVT (deep venous thrombosis) ([facility]) 08/06/2018 - Present Current Assessment AND Plan - Recent diagnosis of DVT - Diagnosed 08/2018, with bilateral LE involvement per family - ?provoked in setting of recent prior hospitalizations - LE DVT US was negative here - Continue Xarelto course Arthritis 09/05/2018 - Present Current Assessment AND Plan - Possible RA - Recent diagnosis, with positive RF - Not on meds, further outpatient management/rheum f/u Abnormal CT scan, gastrointestinal tract 09/15/2018 - Present Current Assessment AND Plan As above, recommended MRI pancreas with contrast at some point to evaluate Leukocytosis 09/15/2018 - Present Current Assessment AND Plan Follow up labs had shown elevated WBC Is on steroids; no fever. No evidence new infection at this time Hypertension, essential 09/05/2018 - Present Current Assessment AND Plan Assessment: SBP 120s PLAN: Continue current meds with Norvasc AND Lasix; monitor BP MGUS (monoclonal gammopathy of unknown significance) Unknown - Present Secondary pulmonary arterial hypertension (HCC) 09/05/2018 - Present Medication and Non-Pharmacologic VTE Prophylaxis/Anticoagulants Anticoagulant AND Antiplatelet Medications Start Dose Route Frequency Ordered Stop 09/11/18 1730 rivaroxaban 20 mg tab(s) (XARELTO) (rivaroxaban DVT/PE CONTINUATION of therapy beyond 21 days) 20 mg ORAL DAILY WITH DINNER 09/11/18 1729 -- 09/11/18 1715 activity - mobilize patient (fl,oh) VTE Prophylaxis: VTE prophylaxis appropriate Plan of care discussed with: Patient SIGNATURE: Delphine Martines MD PATIENT NAME: David Briceno DATE: September 24, 2018 TIME: 10:15 AM PAGER/CONTACT #: [phone] CASE MANAGEM Observed: 09/24/2018 Status: COMPLETED Source: [place] 9:06 AM CLINIC OTHER CAMPUS REPOSITORY HNO ID: [id number] Author: Didi Jimenez (Rn) ALEJO Jesus Service: Case Management Author Type: Registered Nurse Type: Care Mgt Progress Note Filed: 09/24/2018 3:49 PM Note Text: CARE MANAGEMENT PROGRESS NOTE SERVICE DATE: 09/24/2018 SERVICE TIME: 9:06 AM LOS: 13 days EMR reviewed. Met with to review his dc needs. Patient stated not feeling better. Patient on Hi Flow O2 not weaning well. Waiting on : 1- MD Round Tablereview. ( Pt refused Hospice info meeting, refused invasive procedure) 2- location in [address] to review. 3-tna Medicare , Urgent requesting branch rental manager reply. 4- son ([phone]) stage 3 appeal process answer. 3:11 PM CM spoke to Martina Aparicio RN ). She will review and get back to . [facility] Hts sending another appeal letter. CM LVM for son ([phone]) to update. CM spoke to Dr Javier. Reviewed with CM Cardroom Manager CM called [facility] [phone]. Spoke to Walod ROLDAN declined only take max 8 L Oxymizer = 40%. Possible will consider if wean O2 down. [facility] has accepted him on Hi-Flow.Need PRECERT. Family needs to agree since they were refusing days ago since fearful of lack of O2 support in SNF locations. 3:48 PM CM received return call form Chaka Lovett . Insurance gave [facility] and [place] SN[facility] for dc needs. Referral sent to both to see if can support O2 needs. SIGNATURE: Didi Jesus RN PATIENT NAME: David Briceno DATE: September 24, 2018 TIME: 9:06 AM PAGER/CONTACT #: [phone] PROGRESS Observed: 09/23/2018 Status: COMPLETED Source: [place] 10:45 AM CLINIC OTHER CAMPUS REPOSITORY HNO ID: [id number] Author: Delphine Martines Service: Hospital Medicine Author Type: Physician Type: Progress Notes Filed: 09/23/2018 10:45 AM Note Text: SERVICE DATE: 09/23/2018 SERVICE TIME: 10:45 AM HOSPITAL MEDICINE PROGRESS NOTE SERVICE DATE: 09/15/2018 SERVICE TIME: 3:00PM Primary Care Physician: Tati Medina MD NIGHT AND WEEKEND COVERAGE: Nights: Please contact pager [phone]. HPI: Mr. Briceno is a 73 yo gentleman who has been transferred to [place] ICU from [facility] ED with complaints of shortness of breath. His past medical history includes pulmonary fibrosis (previously has followed w/Dr Hein in [place]) - undetermined etiology, emphysema, HTN, GERD, DVT (Aug 2018) - on Xarelto prior to admission, recently diagnosed rheumatoid arthritis (not on immunosuppressive tx), CAD S/P CABG in 2005. He is a former smoker, 40-50 pack years, quit in 1996. ? Patient states that he has had multiple recent admissions to [facility] for pneumonia - once in April, and then most recently in August. Spent several weeks at [facility] in August 2018, during which time he was treated for pneumonia, ?COPD exacerbation, DVTs - started on Xarelto. Patient states he was treated with steroids, antibiotics, bronchodilators. Still had very high FiO2 requirements at discharge. Family reports requiring 15L/min O2 NC with exertion, 6L/min O2 NC at rest. He was discharged to a facility ([facility]) that they were told could accommodate these needs, however upon arrival, it was determined that the facility would be unable to provide this amount of supplemental oxygen, and he was sent back to the emergency department. He reports that has been experiencing shortness of breath, cough that is occasionally productive of brown sputum (occasionally blood tinged). He reports associated left sided pleuritic discomfort. He denies fever/chills, wheeze, abd pain, nausea, vomiting, diarrhea, lower extremity edema, focal neurologic deficits. ? Patient reports that he was following with Dr. Hein (pulmonary - [place]) for progressively worsening shortness of breath. He was told that he has pulmonary fibrosis, and there had been concern that this could be related to rheumatoid arthritis. He was subsequently referred to rheumatology, and diagnosed with RA several weeks ago. No immunosuppressive therapy has been started. He states he was taking Breo and ProAir at home prior to admission. Patient's family states that he did not require any supplemental oxygen prior to his last hospital admission. He was experiencing dyspnea, however he was still fairly active (ie had been doing yard work, etc). He is a former smoker, 40-50 pack years, quit in 1996. 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 // No acute events overnight. Reviewed CT chest and US LL results. Patient and family reassured. No complaints. SUBJECTIVE: . Patient continues to feel a little better overall, though SOB with movement, attempts continue to try to wean high flow. Said he has slept well. He finds it difficult getting out of bed as his O2 sats drop and he gets SOB. No worsening cough or congestion. Denies chest pain or increased edema; is back on Lasix. He is tolerating meals, with no N/V or abdominal pain. (+) BMs. He says his son is working on a plan for discharge and family still weighing their options. MEDICATIONS: Reviewed Objective PHYSICAL EXAM: BP 122/64 Pulse 80 Temp (Src) 98.1 (Oral) Resp 20 Ht 5' 9 (1.75m) Wt 180 lb 8 oz (81.9kg) SpO2 95% BMI 26.64 kg/(m2). Physical Exam Performed: GENERAL: Alert, no distress, sitting up in bed, family not at bedside SKIN: Skin color normal. Warm, dry. EYES: EOMI. No discharge OROPHARYNX: Lips and mucosa normal. NECK: Supple, soft LUNGS: Unlabored on high-flow, rales at bases. CARDIAC: Normal S1 and S2; no gallops ABDOMEN: (+) BS, abdomen soft AND non-tender EXTREMITIES: No LE edema. No calf tenderness. Good capillary refill NEURO: AANDO X3 PULSES: 2+ radial, 2+ PT Lines, Drains, and Airways Line Peripheral 09/11/18 Admission to Hospital Short Left Forearm 20 Gauge 12 days Reviewed lines, drains, AND airways. Need to be continued during admission ASSESSMENT AND PLAN Assessment AND Plan, all Hosp Problems Active Hospital Problems as of 09/23/2018 Noted - Resolved Hospital Acute respiratory failure (HCC) 09/11/2018 - Present Current Assessment AND Plan - Patient with acute on chronic hypoxemic respiratory failure secondary to AECOPD and concomitant pulmonary fibrosis, in patient with underlying asbestos exposure (former stitch welder) and history of nicotine dependence to cigarettes. - Of note, patient has had recent diagnosis of apparent RA. - Per pulmonology, differential diagnosis of this ILD includes IPF, non specific interstitial pneumonitis (NSIP), rheumatoid lung disease, asbestosis. - BNP r/o HF, echocardiogram showed EF 61%, no diastolic dysfunction - CT chest showed multifocal bilateral pulmonary infiltrates on background of severe COPD/emphysema, not deemed pneumonia at this time per pulm; also showed lung nodules - On aerosols, weaning O2 as able, on high flow, attempting to wean - Is on prednisone - Per pulmonology, who is on consult, to have further evaluation and treatment options discussed at [facility] Interdisciplinary ILD conference this week - LTAC placement denied - family appealing and reviewing options; initially thought about hospice, now not interested at this time; they had declined [facility] transfer; SNF unable to handle O2 needs ILD (interstitial lung disease) ([facility]) 09/14/2018 - Present Current Assessment AND Plan As per above. Pulmonology is following Patient declines biopsy DVT (deep venous thrombosis) ([facility]) 08/06/2018 - Present Current Assessment AND Plan - Recent diagnosis of DVT - Diagnosed 08/2018, with bilateral LE involvement per family - ?provoked in setting of recent prior hospitalizations - LE DVT US was negative here - Continue Xarelto course Arthritis 09/05/2018 - Present Current Assessment AND Plan - Possible RA - Recent diagnosis, with positive RF - Not on meds, further outpatient management/rheum f/u Abnormal CT scan, gastrointestinal tract 09/15/2018 - Present Current Assessment AND Plan As above, recommended MRI pancreas with contrast at some point to evaluate Leukocytosis 09/15/2018 - Present Current Assessment AND Plan Follow up labs had shown elevated WBC Is on steroids; no fever. Hypertension, essential 09/05/2018 - Present Current Assessment AND Plan Assessment: SBP 120s PLAN: Continue current meds, monitor BP MGUS (monoclonal gammopathy of unknown significance) Unknown - Present Secondary pulmonary arterial hypertension (HCC) 09/05/2018 - Present Medication and Non-Pharmacologic VTE Prophylaxis/Anticoagulants Anticoagulant AND Antiplatelet Medications Start Dose Route Frequency Ordered Stop 09/11/18 1730 rivaroxaban 20 mg tab(s) (XARELTO) (rivaroxaban DVT/PE CONTINUATION of therapy beyond 21 days) 20 mg ORAL DAILY WITH DINNER 09/11/18 1729 -- 09/11/18 1715 activity - mobilize patient (ak,oh) VTE Prophylaxis: VTE prophylaxis appropriate Plan of care discussed with: Patient and RN SIGNATURE: Delphine Martines MD PATIENT NAME: David Briceno DATE: September 23, 2018 TIME: 10:45 AM PAGER/CONTACT #: [phone] CONSULT PROG Observed: 09/23/2018 Status: COMPLETED Source: [place] 10:31 AM CLINIC OTHER CAMPUS REPOSITORY O ID: [id number] Author: Lenora Dent Service: Pulmonary Disease Author Type: Physician Type: Consult Progress Note Filed: 09/23/2018 12:03 PM Note Text: Attending Note I have personally performed a face to face assessment of the patient and have reviewed the PA/METAL HANGER note. My fan findings include: Assessment/Plan are Acute on chronic hypoxemic respiratory failure secondary to COPD exacerbation and pulmonary fibrosis with superimposed pneumonia that has already been treated at [facility] with IV antibiotics. ?Patient is still requiring high dose of oxygen currently on high flow 45%. Getting slowly better on DuoNeb nebulized in addition to budesonide. ?On by mouth prednisone to be tapered and discontinued. Plan to give one dose of Lasix IV 40 mg once and continue by mouth Lasix 20 mg daily. Continue anticoagulation. ?Normal echocardiogram and NT pro BNP level. ?I will didn't give him a course of antibiotics since that has been treated already at [facility]. ? repeat CT scan chest today showing mild improvement in airspace disease with stable emphysema and fibrosis with stable enlarged lymphadenopathy. Patient has got denied by LTAC twice, pending appeal. I have spent time talking to the patient and his and I also called his son at [phone] and discussed with them transferring him to [facility] for surgical lung biopsy since he is not getting any better. The son . Patient and family are against any invasive procedure because of the risk of respiratory failure in the postop period. He is also against transferring his father to hospice. He requested an appeal from the insurance to cover LTAC stay. I also discussed the case with Didi Jesus from case management Continue same management for now, try to taper oxygen supplemention down as tolerated to keep Sat O2 between 88-92% Other additions or changes: None I spent 35 minutes in the visit, with more than 50% of the total [id number] time of the visit in counseling / coordination of care. 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 Discussed transfer to [facility] or [facility] main for biopsy for more specific diagnosis, but patient and family are reluctant secondary to risks associated w/invasive procedure. Await results of discussion at ILD conference. Supplemental O2 as needed, target?SpO2 ~90%. Wean as able. Continue nebulized budesonide 0.5 mg BID, DuoNeb QID. Continue prednisone 40 mg daily. Encourage bronchopulmonary hygiene, incentive spirometry. Continue anticoagulation --> Xarelto. Continue diuresis, Lasix 20 mg PO QD. Daily PPI, pantoprazole. Consider MRI pancreas per CT chest report, non-emergent. Plan discussed in detail with patient, RN and primary attending. Patient verbalizes understanding and is in agreement with the current management plan. Total time spent in patient care includes but is not limited to patient/ family discussions, collaborative discussions with other healthcare providers, review of medical records, review of laboratory tests, radiology images/ results, microbiology and pathology data. SUBJECTIVE INTERVAL HPI: David Briceno is a 73 year old male status since previous day's visit is unchanged. He continues to complain of dyspnea on exertion. Still requiring 45% high flow O2. No fevers, chills, night sweats, chest pain, abd pain or leg swelling. MEDICATIONS: Current Facility-Administered Medications: acetaminophen 650 mg tab(s) (TYLENOL) 650 mg ORAL q 6 H PRN albuterol 2.5 mg /3 mL (0.083 %) 2.5 mg (PROVENTIL) 2.5 mg INHALATION q 6 H PRN amLODIPine 10 mg tab(s) (NORVASC) 10 mg ORAL DAILY atorvastatin 20 mg tab(s) (LIPITOR) 20 mg ORAL DAILY budesonide 0.5 mg/2 mL 0.5 mg (PULMICORT) 0.5 mg INHALATION BID docusate sodium 100 mg cap(s) (COLACE) 100 mg ORAL BID furosemide 20 mg tab(s) (LASIX) 20 mg ORAL DAILY hydrOXYzine pamoate 25 mg cap(s) (VISTARIL) 25 mg ORAL HS PRN ipratropium-albuterol 3 mL nebulizer solution (DUONEB) 3 mL INHALATION QID lactobacillus rhamnosus 10 billion cell (CULTURELLE) capsule 1 capsule ORAL DAILY magnesium hydroxide 400 mg/5 mL 30 mL (MOM) 30 mL ORAL BID PRN metoprolol tartrate (short acting) 25 mg tab(s) (LOPRESSOR) 25 mg ORAL q 12 H nitroglycerin sublingual 0.4 mg tab(s) (NITROQUICK) 0.4 mg SUBLINGUAL q 5 MIN PRN ondansetron orally disintegrating 4 mg tab(s) (ZOFRAN ODT) 4 mg ORAL q 6 H PRN Or ondansetron (PF) 4 mg injection (ZOFRAN) 4 mg INTRAVENOUS q [address] 20 mg tab(s) (PROTONIX) 20 mg ORAL DAILY (6 AM) predniSONE 40 mg tab(s) (DELTASONE) 40 mg ORAL DAILY rivaroxaban 20 mg tab(s) (XARELTO) 20 mg ORAL DAILY wDINNER sodium chloride 0.65 % 2 Winder (AYR, OCEAN) 2 Winder EACH NOSTRIL PRN therapeutic multivitamin with iron (THERAGRAN-M) 1 tablet ORAL DAILY CURRENT ALLERGIES: ALLERGIES Allergen Reactions - Aceon [Perindopril * Other: See Comments Allergy testing - Augmentin [Amoxicil* Intolerance - Colchicine Swelling - Hydrocodone Mental Status Change sweating - Iv Contrast [Iodine] Swelling - Naproxen Other: See Comments Blood pressure went up, sweaty Patient Vitals for the past 24 hrs: BP Temp Temp src Pulse Resp SpO2 Weight 09/23/18 0836 - - - 80 20 - - 09/23/18 0825 - - - 78 20 95 % - 09/23/18 0757 122/64 36.7 ?C (98.1 ?F) Oral 77 20 95 % - 09/23/18 0432 122/73 36.6 ?C (97.9 ?F) Oral (!) 55 16 98 % 81.9 kg (180 lb 8 oz) 09/23/18 0003 105/67 36.6 ?C (97.9 ?F) Oral (!) 59 16 97 % - 09/22/182103 - - - 78 20 97 % - 09/22/182055 - - - 77 20 97 % - 09/22/18 1935 99/59 36.5 ?C (97.7 ?F) Oral 78 18 95 % - 09/22/18 1802 - - - 74 20 94 % - 09/22/18 1754 - - - 78 20 93 % - 09/22/18 1628 102/67 36.9 ?C (98.4 ?F) Oral 70 18 96 % - 09/22/18 1353 110/64 36.4 ?C (97.5 ?F) Oral 64 22 96 % - 09/22/18 1142 - - - 67 20 - - 09/22/18 1135 - - - 64 20 94 % - 09/22/18 1129 95/61 36.6 ?C (97.8 ?F) Temporal Art 65 20 94 % - Intake/Output Summary (Last 24 hours) at 09/23/18 1032 Last data filed at 09/23/18 0745 Gross per 24 hour Intake 450 ml Output 2420 ml Net -1970 ml OBJECTIVE PHYSICAL EXAM: BP 122/64 Pulse 80 Temp (Src) 98.1 (Oral) Resp 20 Ht 5' 9 (1.75m) Wt 180 lb 8 oz (81.9kg) SpO2 95% BMI 26.64 kg/(m2). 45% high flow General appearance: well appearing, alert and in no acute distress Respiratory: respirations are unlabored, CTAB Cardiovascular: RRR. Abdomen: Soft, non tender, non distended. Extremities: No clubbing or cyanosis. No peripheral edema. DATA Diagnostic tests reviewed for today's visit, films/specimens were personally reviewed by me: Most recent labs and imaging results. CBC, Coags, BMP, Mg, Phos Recent Labs 09/21/18 0658 WBC 16.42* HB 13.5 HCT 41.7 PLT 262 NA 137 K 4.1 CHLOR 99 CO2 30 BUN 14 CREAT 0.59* GLUC 108* CA 8.5 SIGNATURE: Vashti Ireland PA-C PATIENT NAME: David Briceno DATE: September 23, 2018 TIME: 10:32 AM CASE MANAGEM Observed: 09/23/2018 Status: COMPLETED Source: [place] 9:07 AM CLINIC OTHER CAMPUS REPOSITORY HNO ID: [id number] Author: Didi Jimenez (Rn) ALEJO Jesus Service: Case Management Author Type: Registered Nurse Type: Care Mgt Progress Note Filed: 09/23/2018 9:52 AM Note Text: CARE MANAGEMENT PROGRESS NOTE SERVICE DATE: 09/23/2018 SERVICE TIME: 9:07 AM LOS: 12 days EMR reviewed. Admit Dx Acute respiratory failure , Pt on HiFlow O2 at 55% , used BiPAP at HS last night. RUBI spoke to son ([phone]). Round Table Case ( per Pulmonary MD to family) . Son looking into stage 3 appeal process need PULM MD assist with insurance calls. Family refused any invasive procedure, since patient fearful of being stuck on machine for life. Family refused Hospice informational meeting. Son verbalized his father is retired [employer]. RUBI called [place] , spoke to [facility] and this patient is not service connected in their system. RUBI met with to review and he stated he tried in [place] to connect but never completed and had one dental visit in [place] years ago. Son trying to relocate his father to [place] to [facility] [phone], fax [phone]. RUBI spoke to Jennifer and she requested fax over documents and contact number . Sent EMR for admission process, waiting reply. RUBI called [facility] , requesting branch rental manager for this patient. Spoke to [facility]. Urgent Request sent. Waiting return call. SIGNATURE: Didi Jesus RN PATIENT NAME: David Briceno DATE: September 23, 2018 TIME: 9:07 AM PAGER/CONTACT #: [phone] NT PRO BNP Collected: 09/23/2018 Status: F Source: [place] 5:24 AM [facility] REPOSITORY TYPE CODE TESTS RESULT OUT OF REFERENCE UNITS RANGE LAB PBNP <450 pg/mL PRO B Natr 127 Peptide Performed By: #### NTBNP #### [facility] [address] [facility] [phone] THERAPY NT Observed: 09/22/2018 Status: COMPLETED Source: [place] 8:57 PM [facility] REPOSITORY HNO ID: [id number] Author: Louisa Delacruz (Heat Treatment Technician) AUSTIN Neumann Service: Respiratory Therapy Author Type: Registered Resp Therapist Type: Therapy (PT/OT/Speech/Resp) Filed: 09/22/2018 8:58 PM Note Text: RESPIRATORY THERAPY PROGRESS NOTE SERVICE DATE: 09/22/2018 SERVICE TIME: 8:57pm Pt. Is refusing to wear BIPAP for tonight. No distress noted at this time. Will continue to monitor. SIGNATURE: Louisa Neumann RRT PATIENT NAME: David Briceno DATE: September 22, 2018 TIME: 8:57 PM PLAN OF CARE Observed: 09/22/2018 Status: COMPLETED Source: [place] 4:37 PM [facility] REPOSITORY HNO ID: [id number] Author: Laura FrancesRn) ALEJO James Service: Hospice Author Type: Registered Nurse Type: Plan of Care Filed: 09/22/2018 5:02 PM Note Text: [facility] PATIENT NAME: David Briceno PATIENT LOCATION: [place] [id number] REASON FOR VISIT: New Hospice Referral 09/21 follow up phone call. Not seen at this time. TOPIC OF NOTE: progress note BACKGROUND: 73 year old male with interstitial lung disease and a history of pulmonary fibrosis of unknown etiology, with emphysema in acute respiratory failure requiring high flow nasal canula 40-50% at present. ASSESSMENT AND PLAN: No visit at this time. Follow up phone call placed to patient's son (identified as patient customer loyalty representative in referral) ([phone]). He suggested that there are some possible options on the table being discussed regarding his father, including possible transfer to [facility] for further diagnostic work up and/or possible rehabilitation. Patient's family is not ready to further discuss hospice at this time. Initiated hospice informational by phone 09/21. Son has our phone number and we will continue to follow. Please have case management keep us posted and should patient transfer to [facility] we will follow from afar unless otherwise directed. DISCUSSED WITH: Didi Jesus RN CM and son David Briceno by phone Please Call [phone] with any questions or needs with coordination of care. Request to have the covering liaison paged. Hospice and Palliative Care Liaison [facility] THERAPY NT Observed: 09/22/2018 Status: COMPLETED Source: [place] 2:51 PM CLINIC OTHER CAMPUS REPOSITORY HNO ID: [id number] Author: Aurelia Briseno Service: Physical Therapy Author Type: Commercial Fisher Type: Therapy (PT/OT/Speech/Resp) Filed: 09/22/2018 2:58 PM Note Text: Attestation signed by Alejandra Warren at 09/22/2018 5:52 PM I reviewed and agree with the assessment as documented above. SIGNATURE: Alejandra Warren, PT DATE: September 22, 2018 TIME: 5:52 PM Physical Therapy Treatment SERVICE DATE: 09/22/2018 SERVICE TIME: 1400 to 1435 ROOM: [id number] Recommended Discharge Disposition: Subacute/SNF Recommended Discharge Disposition Comments: Pt would benefit from further skilled therapy to address all functional limitations to allow pt to return to [facility]. Anticipate pt will progress to home with home PT with 24 hour assist/supervision. Pt will need to be able to tolerate activity while keeping SPO2 sats above 88%. Justification For Post Acute Needs: Anticipated community discharge;Cognition intact;Good family support;Good premorbid functional status;Living the community premorbidly;Motivated;Medically complex;Willing to participate;Anticipate that patient will require daily (5x/wk) skilled therapy in a post-acute facility setting at the time of acute hospital discharge Anticipated Discharge Needs: Family Training;Physical Assist at Home;Supervision at Home Physical Assist at Home for: Cleaning;Laundry;Meals;Medication Management;Stairs;Safety;Self Care;Shopping;Transportation Supervision at Home due to: Other: See Comment (for safety) Recommended Discharge Equipment: To Be Determined PT Recommendations to Nursing: Ambulate with device;To bathroom;In halls;Transfer to/from chair;OOB for Meals;Sit at edge of bed;With assist of 1 person Device: Wheeled Walker PT 6 Clicks Score: 19 Precautions/Activity Restrictions: Fall Risk;Lines/Tubes/Drains Precaution/Activity Restriction Comments: per MD note, target SpO2 >90% ASSESSMENT : Patient pleasant and highly motivated to participate with PT. Patient able to tolerate limited gait training and supine exercises. Patient anxious regarding DC plan this session, heavy encouragement provided. Patient requires frequent cues for diaphragmatic breathing, safe pacing and relaxation. Patient requires no more than CGA with all functional mobility. Patient's family present and supportive throughout treatment. At this time, patient would benefit from SNF post acute stay in order to improve activity tolerance, strength, balance and further safety education. Patient Disposition at Start of Session: OOB in Chair;Call [place] in Reach;Family Present Patient Disposition at End of Session: OOB in Chair;Call [place] in Reach;Family Present Tolerance Limited By Fatigue;Physiologic Response (decrease in SPO2) Physical Therapy Problem List: Education Deficit;Safety Deficits;Decreased Activity Tolerance;Decreased Strength;Functional Mobility Impairment;Balance Impaired Patient /Caregiver Goals: Other: See Comment (LTACH) Goals for Plan of Care: Able to perform HEP with: Independent Transfer supine to/from sit with: Independent Transfer sit to/from stand with: Supervision Ambulate with: Stand By Assistance (keeping SPO2 sats above 88% ) Distance: 100-150 Device: Wheeled Walker (LRAD ) Ambulate up and down steps with: Stand By Assistance Number of steps: 10 Device: Rail;Hand Held Assist Car transfer with: Supervision Progress Toward Goals: Progressing slower than expected Due To: Hypoxia Rehab Potential: Good PLAN: Treatment Frequency (times per week): 4 Current admission Treatment Interventions: Education;Energy Conservation Training;Strengthening;Functional Mobility Training;Balance Training;Neuromuscular Re-education Plan of Care developed with: Patient TREATMENT INTERVENTIONS: Therapy Diagnosis: Reduced mobility-other;General symptoms and signs-other Interventions Provided: Therapeutic Exercise (05830);Therapeutic Activity (03714);Gait Training (41676) Therapeutic Exercise (41969) Treatment Minutes: 17 1 unit Skilled Intervention(s): Instruction in therapeutic exercise for bilateral AP, QS with 5 sec hold, GS with 5 second hold, heel slides, SAQ, slightly resisted isometric hip abduction/addduction, SLR x 15 reps each Verbal and tactile cuing provided for correct performance of exercises Cues for diaphragmatic breathing Re-emphasized the importance of frequent performance of anti-embolic exercises Therapeutic Activity (48411) Treatment Minutes: 10 1 unit Skilled Intervention(s): Instructed patient in supine to sit pushing with upper extremities to sit up Instruction in sit to stand technique with proper hand placement and body positioning at edge of bed/chair Instruction in stand to sit technique with lower extremities touching chair/bed and reaching back for surface Much extended time to monitor vitals and allow for rest breaks for recovery Gait Training (82179) Treatment Minutes: 8 0 units Skilled Intervention(s): Instruction in sequencing, gait pattern, reciprocating steps Instruction in correction of gait deviations, cues for upright posture, safety, diaphragmatic breathing, safe pacing Instruction in use of equipment, cues for sequence and pattern Gait belt in place for safety with all functional mobility. RN aware of patient status. Discussed with patient sitting up for no longer than 1 hr and calling for assistance 100% of the time. Total Timed Code Treatment Minutes: 35 Total Treatment Time (minutes): 35 FUNCTIONAL G CODE: PT 6 Clicks Score: 19 (09/22/18 2225) Mobility: Walking and Moving Around Current Status (G8978): CK (09/13/18 08) Mobility: Walking and Moving Around Goal Status (G8979): CJ (09/13/18804) Based on clinical assessment and the score on the 6 Clicks Functional Assessment Tool, the G code and corresponding severity modifiers are documented above. SUBJECTIVE: Current Hospital Course: Chart reviewed and no significant medical updates relevant to therapy were noted Reason for Physical Therapy Consult : safety assessment Relevant Past Medical History: CAD, COPD, CABG, GERD, RA, DVT 08/2018, pulmonary fibrosis, emphysema, Asbestos exposure, HTN, ND, prostate CA Patient Report: Patient agreeable and motivated to participate in PT. Patient states, This hospital is going to just send me home and put me in the grave. I have no place to go. Patient appropriate for PT per RNChapincito. Home Environment Patient Lives With: Spouse (Lives in a one level home with ) Assistance Available: 24 Hour Entry To Home: Stairs;With Rail Number Of Stairs Into Home: 10 Number Of Stairs To Bed/Bath: 0 Tub/Shower Type: walk-in shower and tub/shower combo Laundry: completes Equipment Owned: Standard Walker;Wheeled Walker Prior Functional Level: Within Functional Limits Prior Functional Level Comments: Prior to Pneumonia in April pt was independent; recently pt uses a FWW OBJECTIVE: CURRENT FUNCTIONAL STATUS: Current Functional Mobility Assist Level Additional Information Rolling Supine to Sit Contact Guard Assistance (HOB 30 degrees, no use of rails) Sit to Supine Other: See Comment (patient in bed side chair at end of treatment) Scooting Stand By Assistance (forward to EOB) Sit to Stand Stand By Assistance (with FWW) x1 trial from EOB Stand to Sit Contact Guard Assistance (with FWW) Cues for hand placement and controlled/eccentric decent Bed to Chair Toilet/Commode Gait Contact Guard Assistance (reciprocating steps) Gait Device: Wheeled Walker Gait Distance (feet): 5-8 steps from EOB to chair Stairs (unsafe for progression) Curb Step Car Transfer General Gait Deviations: Dipti decreased;Step length decreased;Flexed trunk posture Balance: Static Sitting;Dynamic Sitting;Static Standing;Dynamic Standing Static Sitting Balance: Supervision Dynamic Sitting Balance: Supervision Static Standing Balance: Contact Guard Assistance Dynamic Standing Balance: Contact Guard Assistance -HLM: 4: Move to chair / commode Please see discipline specific clinical documentation flowsheet for complete details for this therapy evaluation/treatment. SIGNATURE: Aurelia Briseno PTA PATIENT NAME: David Briceno DATE: September 22, 2018 TIME: 2:52 PM THERAPY NT Observed: 09/22/2018 Status: COMPLETED Source: [place] 11:56 AM CLINIC OTHER CAMPUS REPOSITORY HNO ID: [id number] Author: Aurelia Briseno Service: Physical Therapy Author Type: Commercial Fisher Type: Therapy (PT/OT/Speech/Resp) Filed: 09/22/2018 11:57 AM Note Text: Attestation signed by Alejandra FrancesPt) Kelvin at 09/22/2018 5:51 PM I reviewed and agree with the assessment as documented above. SIGNATURE: Alejandra Warren, PT DATE: September 22, 2018 TIME: 5:51 PM PHYSICAL THERAPY MISSED VISIT SERVICE DATE: 09/22/2018 SERVICE TIME: 1100 to 1100 ROOM: [id number] Attempted Treatment. Patient not seen due to Test/Procedure. Patient being transported off unit for CT scan. Will re-attempt patient as schedule permits and with patient appropriateness. SIGNATURE: Aurelia Briseno PTA PATIENT NAME: David Briceno DATE: September 22, 2018 TIME: 11:56 AM PROGRESS Observed: 09/22/2018 Status: COMPLETED Source: [place] 11:39 AM CLINIC OTHER CAMPUS REPOSITORY HNO ID: [id number] Author: hCapincito (Rn) ALEJO Sierra Service: Nursing Author Type: Registered Nurse Type: Progress Notes Filed: 09/22/2018 11:39 AM Note Text: Nursing Progress Note Vital Dietitian Chief Assessment Note Patient Name: David Briceno Patient [id number] Patient Vitals in the past 4 hrs: 09/22/18 1135, Pulse:64, Resp:20, SpO2:94 % 09/22/18 1129, BP:95/61, Temp:36.6 ?C (97.8 ?F), Temp src:Temporal Art, Pulse:65, Resp:20, SpO2:94 % 09/22/18 0818, Pulse:74, Resp:20, SpO2:94 % 09/22/18 0757, Pulse:73, Resp:20, SpO2:94 % 09/22/18 0740, BP:123/65, Temp:36.3 ?C (97.4 ?F), Temp src:Temporal Art, Pulse:69, Resp:20, SpO2:93 % Status Change Related to: Respiratory Issues (See Nursing Clinical Assessment For Details) The Following People Were Notified: Respiratory Therapy Caregiver/Provider: See Documentation Related to: Oxygen Therapy;Continuous Monitoring;Medications Additional Comments : This note was completed by: CHAPINCITO SIERRA RN CT CHEST MARLY GREER Observed: 09/22/2018 Status: F Source: [place] 11:17 AM [facility] OTHER CAMPUS REPOSITORY * * *Final Report* * * DATE OF EXAM: Sep 22 2018 11:17AM [facility] 0541 - CT CHEST MARLY GREER / PROCEDURE REASON: Acute interstitial pneumonitis * * * * Physician Interpretation * * * * EXAMINATION: CHEST CT WITHOUT CONTRAST CLINICAL HISTORY: Acute interstitial pneumonitis, Technique: Spiral CT acquisition of the chest from the thoracic inlet to the upper abdomen without contrast. MQ: CTCWOR_4 CT Dose-Length Product: 260 mGy*cm CT Dose Reduction Employed: mAs-kVp adjusted based on patient size-age Comparison: CT 09-11-18 RESULT: Limitations: None. Lines, tubes, and devices: None. Lung parenchyma and pleura: Stable centrilobular emphysema. Distribution of multifocal airspace disease is unchanged previous study. However there is interval decrease in the density of the airspace disease with diminishment of localized area of confluence in the posterior LEFT lower lobe superior segment and adjacent lateral LEFT upper lobe. Stable borderline bronchiectasis LEFT lower lobe base stable bibasilar honeycombing. No pleural effusion. Central airways are patent. Thoracic inlet, heart, and mediastinum: Stable borderline enlarged subcarinal and RIGHT hilar lymph nodes. The thoracic aorta and main pulmonary artery are normal in caliber. The cardiac chambers are normal in size. Coronary calcification. No pericardial effusion or thickening. Bones and soft tissues: No destructive bone lesion. Status post median sternotomy. Chest wall is otherwise unremarkable. Upper abdomen: Stable low-attenuation hepatic densities consistent with cysts IMPRESSION: Mild improvement in infiltrates. Stable emphysema and fibrosis. Stable borderline enlarged lymph nodes There is coronary artery calcification consistent with coronary artery disease. Environmental Consultant: PSCB Transcribe Date/Time: Sep 22 2018 11:27A Dictated by : NEGRO MCCORMACK MD This examination was interpreted and the report reviewed and electronically signed by: NEGRO MCCORMACK MD on Sep 22 2018 11:38AM EST [id number] PROGRESS Observed: 09/22/2018 Status: COMPLETED Source: [place] 11:02 AM CLINIC OTHER CAMPUS REPOSITORY HNO ID: [id number] Author: Delphine Martines Service: Hospital Medicine Author Type: Physician Type: Progress Notes Filed: 09/22/2018 11:02 AM Note Text: SERVICE DATE: 09/22/2018 SERVICE TIME: 11:02 AM HOSPITAL MEDICINE PROGRESS NOTE SERVICE DATE: 09/15/2018 SERVICE TIME: 3:00PM Primary Care Physician: Tati Medina MD NIGHT AND WEEKEND COVERAGE: Nights: Please contact pager [phone]. HPI: Mr. Briceno is a 73 yo gentleman who has been transferred to [place] ICU from [facility] ED with complaints of shortness of breath. His past medical history includes pulmonary fibrosis (previously has followed w/Dr Hein in [place]) - undetermined etiology, emphysema, HTN, GERD, DVT (Aug 2018) - on Xarelto prior to admission, recently diagnosed rheumatoid arthritis (not on immunosuppressive tx), CAD S/P CABG in 2005. He is a former smoker, 40-50 pack years, quit in 1996. ? Patient states that he has had multiple recent admissions to [facility] for pneumonia - once in April, and then most recently in August. Spent several weeks at [facility] in August 2018, during which time he was treated for pneumonia, ?COPD exacerbation, DVTs - started on Xarelto. Patient states he was treated with steroids, antibiotics, bronchodilators. Still had very high FiO2 requirements at discharge. Family reports requiring 15L/min O2 NC with exertion, 6L/min O2 NC at rest. He was discharged to a facility ([facility]) that they were told could accommodate these needs, however upon arrival, it was determined that the facility would be unable to provide this amount of supplemental oxygen, and he was sent back to the emergency department. He reports that has been experiencing shortness of breath, cough that is occasionally productive of brown sputum (occasionally blood tinged). He reports associated left sided pleuritic discomfort. He denies fever/chills, wheeze, abd pain, nausea, vomiting, diarrhea, lower extremity edema, focal neurologic deficits. ? Patient reports that he was following with Dr. Hein (pulmonary - [place]) for progressively worsening shortness of breath. He was told that he has pulmonary fibrosis, and there had been concern that this could be related to rheumatoid arthritis. He was subsequently referred to rheumatology, and diagnosed with RA several weeks ago. No immunosuppressive therapy has been started. He states he was taking Breo and ProAir at home prior to admission. Patient's family states that he did not require any supplemental oxygen prior to his last hospital admission. He was experiencing dyspnea, however he was still fairly active (ie had been doing yard work, etc). He is a former smoker, 40-50 pack years, quit in 1996. 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 // No acute events overnight. Reviewed CT chest and US LL results. Patient and family reassured. No complaints. SUBJECTIVE: . Patient continues to feel a little better, high flow down, was at 45%. Said he slept well. Less nasal soreness. Feels SOB when moves around still, including transferring from bed to chair/commode. Says he dropped earlier to 79%. He finds it difficult getting out of bed. No worsening cough or congestion. Denies chest pain or increased edema; is back on Lasix. He is tolerating meals, with no N/V or abdominal pain. (+) BMs. He is less anxious he says since his breathing is improved. He and his family at quite upset that the LTACH transfer was denied twice and he says his son is appealing prior to hospice discussion. MEDICATIONS: Reviewed Objective PHYSICAL EXAM: BP 123/65 Pulse 74 Temp (Src) 97.4 (Temporal Artery) Resp 20 Ht 5' 9 (1.75m) Wt 182 lb 5.1 oz (82.7kg) SpO2 94% BMI 26.91 kg/(m2). Physical Exam Performed: GENERAL: Alert, no distress, cooperative, sitting up in bed, family not at bedside SKIN: Skin color normal. Warm, dry. EYES: EOMI. No discharge OROPHARYNX: Lips and mucosa normal. NECK: Supple, soft BACK: No CVAT. LUNGS: Unlabored on high-flow, rales at bases. CARDIAC: Normal S1 and S2; no rubs ABDOMEN: (+) BS, abdomen soft AND non-tender EXTREMITIES: No LE edema. No calf tenderness. Good capillary refill NEURO: AANDO X3 PULSES: 2+ radial, 2+ DP Lines, Drains, and Airways Line Peripheral 09/11/18 Admission to Hospital Short Left Forearm 20 Gauge 11 days Reviewed lines, drains, AND airways. Need to be continued during admission ASSESSMENT AND PLAN Assessment AND Plan, all Hosp Problems Active Hospital Problems as of 09/22/2018 Noted - Resolved Hospital Acute respiratory failure (HCC) 09/11/2018 - Present Current Assessment AND Plan - Patient with apparent acute on chronic hypoxemic respiratory failure secondary to AECOPD and concomitant pulmonary fibrosis, in patient with underlying asbestos exposure (former stitch welder) and history of nicotine dependence to cigarettes. - Of note, patient has had recent diagnosis of apparent RA. - Per pulmonology, differential diagnosis of this ILD includes IPF, non specific interstitial pneumonitis (NSIP), rheumatoid lung disease, asbestosis. - BNP r/o HF, echocardiogram showed EF 61%, no diastolic dysfunction - CT chest showed multifocal bilateral pulmonary infiltrates on background of severe COPD/emphysema, not deemed pneumonia at this time per pulm/signals analyst; also showed lung nodules - On aerosols, weaning O2 as able, on decreased high flow, on prednisone - Per pulmonology, who is on consult, to have further evaluation and treatment options discussed at [facility] Interdisciplinary ILD conference this week - LTAC placement denied - family appealing, patient informed me this am wont address other options until appeal processed - ?Hospice - family discussing with hospice - They decline [facility] transfer, or SNF/unable to handle O2 needs ILD (interstitial lung disease) ([facility]) 09/14/2018 - Present Current Assessment AND Plan As per above. Pulmonology is on consult DVT (deep venous thrombosis) ([facility]) 08/06/2018 - Present Current Assessment AND Plan - Recent diagnosis of DVT - Diagnosed 08/2018 per patient/family, with bilateral LE involvement per them. - ?provoked in setting of recent prior hospitalizations - LE DVT US was negative - Continue Xarelto course Arthritis 09/05/2018 - Present Current Assessment AND Plan - Possible RA - Recent diagnosis, with positive RF - Not on meds, further outpatient management Abnormal CT scan, gastrointestinal tract 09/15/2018 - Present Current Assessment AND Plan As above, recommended MRI pancreas with contrast at some point Leukocytosis 09/15/2018 - Present Current Assessment AND Plan Follow up labs show elevated WBC Is on steroids; no fever. Hypertension, essential 09/05/2018 - Present MGUS (monoclonal gammopathy of unknown significance) Unknown - Present Secondary pulmonary arterial hypertension (HCC) 09/05/2018 - Present Medication and Non-Pharmacologic VTE Prophylaxis/Anticoagulants Anticoagulant AND Antiplatelet Medications Start Dose Route Frequency Ordered Stop 09/11/18 1730 rivaroxaban 20 mg tab(s) (XARELTO) (rivaroxaban DVT/PE CONTINUATION of therapy beyond 21 days) 20 mg ORAL DAILY WITH DINNER 09/11/18 1729 -- 09/11/18 1715 activity - mobilize patient (ak,ma) VTE Prophylaxis: VTE prophylaxis appropriate Plan of care discussed with: Patient SIGNATURE: Delphine Martines MD PATIENT NAME: David Briceno DATE: September 22, 2018 TIME: 11:02 AM PAGER/CONTACT #: [id number] CONSULT PROG Observed: 09/22/2018 Status: COMPLETED Source: [place] 10:54 AM CLINIC OTHER CAMPUS REPOSITORY HNO ID: [id number] Author: Lenora Dent Service: Pulmonary Disease Author Type: Physician Type: Consult Progress Note Filed: 09/22/2018 2:16 PM Note Text: Attending Note I have personally performed a face to face assessment of the patient and have reviewed the PA/METAL HANGER note. My fan findings include: Assessment/Plan are Acute on chronic hypoxemic respiratory failure secondary to COPD exacerbation and pulmonary fibrosis with superimposed pneumonia that has already been treated at [facility] with IV antibiotics. Patient is still requiring high dose of oxygen currently on high flow 45%. Getting slowly better on DuoNeb nebulized in addition to budesonide. On by mouth prednisone to be tapered and discontinued. The patient said requiring high flow oxygen at 50%. Plan to give one dose of Lasix IV 40 mg once and continue by mouth Lasix 20 mg daily. Continue anticoagulation. Normal echocardiogram and NT pro BNP level. I will didn't give him a course of antibiotics since that has been treated already at [facility]. repeat CT scan chest today showing mild improvement in airspace disease with stable emphysema and fibrosis with stable enlarged lymphadenopathy. Patient has got denied by LTAC twice. I have spent time talking to the patient and his and I also called his son Davdi at [phone] and discussed with them transferring him to [facility] for surgical lung biopsy since he is not getting any better. The son is again any invasive procedure because of the risk of respiratory failure in the postop period. He is also against transferring his father to hospice. He requested an appeal from the insurance to cover LTAC stay. I also discussed the case with Didi Jesus from case management. Other additions or changes: As edited I spent 60 minutes in the visit, with more than 50% of the total [id number] time of the visit in counseling / coordination of care. 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 Additional diuresis: Lasix 40 mg IV x1. Supplemental O2 as needed, target SpO2 ~90%. Wean as able. Continue nebulized budesonide 0.5 mg BID, DuoNeb QID. Continue prednisone 40 mg daily. Encourage bronchopulmonary hygiene, incentive spirometry. Continue anticoagulation --> Xarelto. Continue diuresis, Lasix 20 mg PO QD. Daily PPI, pantoprazole. Consider MRI pancreas per CT chest report, non-emergent. Plan discussed in detail with patient, RN and primary attending. Patient verbalizes understanding and is in agreement with the current management plan. Total time spent in patient care includes but is not limited to patient/ family discussions, collaborative discussions with other healthcare providers, review of medical records, review of laboratory tests, radiology images/ results, microbiology and pathology data. SUBJECTIVE CHIEF COMPLAINT: SOB INTERVAL HPI:David Briceno is a 73 year old male status since previous days visit is unchanged. Dyspnea unchanged. No wheezing. No fevers, chills, night sweats, chest pain, abd pain or leg swelling. MEDICATIONS: Current Facility-Administered Medications: acetaminophen 650 mg tab(s) (TYLENOL) 650 mg ORAL q 6 H PRN albuterol 2.5 mg /3 mL (0.083 %) 2.5 mg (PROVENTIL) 2.5 mg INHALATION q 6 H PRN amLODIPine 10 mg tab(s) (NORVASC) 10 mg ORAL DAILY atorvastatin 20 mg tab(s) (LIPITOR) 20 mg ORAL DAILY budesonide 0.5 mg/2 mL 0.5 mg (PULMICORT) 0.5 mg INHALATION BID docusate sodium 100 mg cap(s) (COLACE) 100 mg ORAL BID furosemide 20 mg tab(s) (LASIX) 20 mg ORAL DAILY furosemide 40 mg injection (LASIX) 40 mg INTRAVENOUS ONCE hydrOXYzine pamoate 25 mg cap(s) (VISTARIL) 25 mg ORAL HS PRN ipratropium-albuterol 3 mL nebulizer solution (DUONEB) 3 mL INHALATION QID lactobacillus rhamnosus 10 billion cell (CULTURELLE) capsule 1 capsule ORAL DAILY magnesium hydroxide 400 mg/5 mL 30 mL (MOM) 30 mL ORAL BID PRN metoprolol tartrate (short acting) 25 mg tab(s) (LOPRESSOR) 25 mg ORAL q 12 H nitroglycerin sublingual 0.4 mg tab(s) (NITROQUICK) 0.4 mg SUBLINGUAL q 5 MIN PRN ondansetron orally disintegrating 4 mg tab(s) (ZOFRAN ODT) 4 mg ORAL q 6 H PRN Or ondansetron (PF) 4 mg injection (ZOFRAN) 4 mg INTRAVENOUS q [address] 20 mg tab(s) (PROTONIX) 20 mg ORAL DAILY (6 AM) predniSONE 40 mg tab(s) (DELTASONE) 40 mg ORAL DAILY rivaroxaban 20 mg tab(s) (XARELTO) 20 mg ORAL DAILY wDINNER sodium chloride 0.65 % 2 Winder (AYR, OCEAN) 2 Winder EACH NOSTRIL PRN therapeutic multivitamin with iron (THERAGRAN-M) 1 tablet ORAL DAILY CURRENT ALLERGIES: ALLERGIES Allergen Reactions - Aceon [Perindopril * Other: See Comments Allergy testing - Augmentin [Amoxicil* Intolerance - Colchicine Swelling - Hydrocodone Mental Status Change sweating - Iv Contrast [Iodine] Swelling - Naproxen Other: See Comments Blood pressure went up, sweaty Patient Vitals for the past 24 hrs: BP Temp Temp src Pulse Resp SpO2 Weight 09/22/18 0818 - - - 74 20 94 % - 09/22/18 0757 - - - 73 20 94 % - 09/22/18 0740 123/65 36.3 ?C (97.4 ?F) Temporal Art 69 20 93 % - 09/22/18 0400 - - - - - - 82.7 kg (182 lb 5.1 oz) 09/22/18 0321 115/67 36.5 ?C (97.7 ?F) Oral 61 19 98 % - 09/21/18 2318 105/63 36.5 ?C (97.7 ?F) Oral 63 19 95 % - 09/21/181999 - - - 77 20 - - 09/21/181949 - - - 75 20 96 % - 09/21/18 1945 100/65 36.3 ?C (97.3 ?F) Oral 66 19 98 % - 09/21/18 1550 106/59 36.5 ?C (97.7 ?F) Temporal Art 71 20 97 % - 09/21/18 1211 110/59 36.2 ?C (97.2 ?F) Axillary 71 20 94 % - 09/21/18 1209 - - - 70 18 94 % - Intake/Output Summary (Last 24 hours) at 09/22/18 1054 Last data filed at 09/22/18 0840 Gross per 24 hour Intake 1460 ml Output 3500 ml Net -2040 ml OBJECTIVE PHYSICAL EXAM: BP 123/65 Pulse 74 Temp (Src) 97.4 (Temporal Artery) Resp 20 Ht 5' 9 (1.75m) Wt 182 lb 5.1 oz (82.7kg) SpO2 94% BMI 26.91 kg/(m2). 50% high flow O2 General appearance: well appearing, alert and in no acute distress Respiratory: respirations are unlabored, CTAB Cardiovascular: RRR without murmur, gallop, or rubs. Abdomen: Soft, non tender, non distended. Extremities: No clubbing or cyanosis. No peripheral edema. DATA Diagnostic tests reviewed for today's visit, films/specimens were personally reviewed by me: Most recent labs and imaging results. CBC, Coags, BMP, Mg, Phos Recent Labs 09/21/18 0658 WBC 16.42* HB 13.5 HCT 41.7 PLT 262 NA 137 K 4.1 CHLOR 99 CO2 30 BUN 14 CREAT 0.59* GLUC 108* CA 8.5 SIGNATURE: Vashti Ireland PA-C PATIENT NAME: David Briceno DATE: September 22, 2018 TIME: 10:54 AM NURSING PROG Observed: 09/22/2018 Status: COMPLETED Source: [place] 10:33 AM CLINIC OTHER CAMPUS REPOSITORY HNO ID: [id number] Author: Chapincito (Rn) ALEJO Sierra Service: Nursing Author Type: Registered Nurse Type: Nursing Progress Note Filed: 09/22/2018 6:49 PM Note Text: Nursing Progress Note Patient Name: David Briceno Patient Location: [place] [id number] Daily Note:1000: Per pulmonology, lasix 20mg PO is to be held in order to give a 1x dose of lasix 40mg IV. However, lasix 20mg PO was already given at 0847. Dr. Dent states to hold dose until 1400. MAR due time has been adjusted. CT scan of the chest has been ordered, and BNP to be checked. 1100: Pt off of floor with RN accompaniment for CT. 1125: Pt back to floor at this time. 1130: Amlodipine PO held For BP 95/61. 1445: Dr. Dent is recommending that patient be transferred to either [place] or [facility] at this time for a lung biopsy, but patient and family are refusing any invasive intervention. They also are now refusing for patient to d/t to hospice for hi flow management, and are fighting with insurance company to get LTAC coverage. This note was completed by: CHAPINCITO SIERRA RN NUTRITION Observed: 09/22/2018 Status: COMPLETED Source: [place] 10:21 AM [facility] REPOSITORY HNO ID: [id number] Author: Paula Moe Service: Nutrition Therapy Author Type: Registered Dietitian Type: Nutrition Filed: 09/22/2018 10:24 AM Note Text: NUTRITION THERAPY PROGRESS NOTE SERVICE DATE: 09/22/2018 SERVICE TIME: 8:45 am NUTRITION CARE PLAN Intervention: Intake- 100 % of meals. Monitor intake. . Reviewed current labs and physician progress notes. Monitor and Evaluation: Goal: Meet >75% of estimated needs Discharge Nutrition Recommendations: Diet: Heart healthy Interval History: 09/21/18 - Hosp[ice Consult with family Acute on chronic hypoxemic respiratory failure secondary to COPD exacerbation and pulmonary fibrosis with superimposed pneumonia that has already been treated at [facility] with IV antibiotics. Patient is still requiring high dose of oxygen currently on high flow 45%. Current Diet Order DIET HEART HEALTHY Order Specific Question: Heart Healthy Answer: 4 GM SODIUM (<200 MG CHOL / LOW SAT FAT) There are no questions and answers to display. Supplement 1 Frequency: LUNCH Supplement 1: ZONE BAR OATMEAL CHOCOLATE CHUNK There are no questions and answers to display. Height: 175.3 cm (5' 9) Admission Weight: 81 kg (178 lb 9.2 oz) Current Weight: 82.7 kg (182 lb 5.1 oz) Body mass index is 26.92 kg/m?. normal Recent Labs 09/21/18 0658 GLUC 108* BUN 14 CREAT 0.59* NA 137 K 4.1 CHLOR 99 CO2 30 HB 13.5 HCT 41.7 WBC 16.42* MNT Billing Type: Re-assess/15 min 1 unit SIGNATURE: Paula Moe RD, LD PATIENT NAME: David Briceno DATE: September 22, 2018 TIME: 10:21 AM PLAN OF CARE Observed: 09/21/2018 Status: COMPLETED Source: [place] 5:27 PM [facility] REPOSITORY HNO ID: [id number] Author: Jennifer (Rn) Kalani RN Service: Hospice Author Type: Registered Nurse Type: Plan of Care Filed: 09/21/2018 5:34 PM Note Text: [facility] PATIENT NAME: David Briceno PATIENT LOCATION: [id number] REASON FOR VISIT: New Hospice Consult TOPIC OF NOTE: Progress Note Spoke with the patient's son . Explained the hospice philosophy and the levels of care within the hospice benefit. Per , the family is appealing the denial of the LTACH. That would be where the patient and his family would like him to go. He declined to set up a hospice meeting at this time. Asked for hospice to call back him tomorrow afternoon. Hospice will follow up with him tomorrow. Please Call [phone] with any questions or needs with coordination of care. Request to have the covering liaison paged. Hospice and Palliative Care Liaison [facility] NURSING PROG Observed: 09/21/2018 Status: COMPLETED Source: [place] 3:14 PM [facility] OTHER [place] REPOSITORY HNO ID: [id number] Author: Chapincito FrancesRn) ALEJO Sierra Service: Nursing Author Type: Registered Nurse Type: Nursing Progress Note Filed: 09/21/2018 6:32 PM Note Text: Nursing Progress Note Patient Name: David Briceno Patient Location: [id number] Daily Note: 1500: Pt and family agreeable to hospice at this time since patient was denied acceptance to LTAC x 2. This note was completed by: CHAPINCITO SIERRA RN CASE MANAGEM Observed: 09/21/2018 Status: COMPLETED Source: [place] 3:05 PM [facility] REPOSITORY HNO ID: [id number] Author: Didi FrancesRn) ALEJO Jesus Service: Case Management Author Type: Registered Nurse Type: Care Mgt Progress Note Filed: 09/21/2018 3:21 PM Note Text: CARE MANAGEMENT PROGRESS NOTE SERVICE DATE: 09/21/2018 SERVICE TIME: 3:05 PM LOS: 10 days CM spoke to Dr Martines. received denial of the Peer to Peer. Pt son is calling the insurance. CM had Family meeting with Pt, , daughter, YULIA and Son on the phone. They chose Hospice, and are considering [facility] or [facility]. Son [phone] will set up meeting time. They verbalized concern about ramps needed at the home. 3:20 PM Pt and family chose [facility] Hospice referral sent. SIGNATURE: Didi Jesus RN PATIENT NAME: David Briceno DATE: September 21, 2018 TIME: 3:05 PM PAGER/CONTACT #: [phone] PROGRESS Observed: 09/21/2018 Status: COMPLETED Source: [place] 12:37 PM [facility] OTHER CAMPUS REPOSITORY HNO ID: [id number] Author: Chapincito Villagomez) ALEJO Sierra Service: Nursing Author Type: Registered Nurse Type: Progress Notes Filed: 09/21/2018 12:37 PM Note Text: Nursing Progress Note Vital Dietitian Chief Assessment Note Patient Name: David Briceno Patient [facility]: [id number] Patient Vitals in the past 4 hrs: 09/21/18 1211, BP:110/59, Temp:36.2 ?C (97.2 ?F), Temp src:Axillary, Pulse:71, Resp:20, SpO2:94 % 09/21/18 1209, Pulse:70, Resp:18, SpO2:94 % Status Change Related to: Respiratory Issues (See Nursing Clinical Assessment For Details) The Following People Were Notified: Respiratory Therapy Caregiver/Provider: See Documentation Related to: Oxygen Therapy;Continuous Monitoring Additional Comments : This note was completed by: CHAPINCITO SIERRA RN CASE MANAGEM Observed: 09/21/2018 Status: COMPLETED Source: [place] 11:59 AM CLINIC OTHER [place] REPOSITORY HNO ID: [id number] Author: Didi Jimenez (Rn) ALEJO Jesus Service: Case Management Author Type: Registered Nurse Type: Care Mgt Progress Note Filed: 09/21/2018 12:51 PM Note Text: CARE MANAGEMENT PROGRESS NOTE SERVICE DATE: 09/21/2018 SERVICE TIME: 11:59 AM LOS: 10 days CM received notice from [facility]. Insurance has given LTACH intent to deny. paged to do peer to peer today. CM updated Patient and . Peer to peer is available today by calling [phone], using reference # [id number]. 12:35 PM CM spoke to patient and they asked CM to call son [phone]. CM spoke to son. Pt dramatized Peer 2 Peer to her son, telling him she needs to go get home ready for patient. CM reassure Son and Pt and , there are other options the Doctors can talk to them about if insurance hold to the denial after the Peer to Peer. CM reassure son the other options would be supportive and comfort. Son verbalized past SNF were unable to give him O2 support. SIGNATURE: Didi Jesus RN PATIENT NAME: David Briceno DATE: September 21, 2018 TIME: 11:59 AM PAGER/CONTACT #: [phone] THERAPY NT Observed: 09/21/2018 Status: COMPLETED Source: [place] 10:30 AM [facility] REPOSITORY HNO ID: [id number] Author: Aurelia Briseno Service: Physical Therapy Author Type: Commercial Fisher Type: Therapy (PT/OT/Speech/Resp) Filed: 09/21/2018 10:33 AM Note Text: Attestation signed by Alejandra Warren at 09/22/2018 9:53 AM I reviewed and agree with the assessment as documented above. SIGNATURE: Alejandra Warren, PT DATE: September 22, 2018 TIME: 9:53 AM PHYSICAL THERAPY MISSED VISIT SERVICE DATE: 09/21/2018 SERVICE TIME: 1030 to 1030 ROOM: [place] [id number] Attempted Treatment. Patient not seen due to Illness. Per RN, Chap[place], patient currently feeling SOB. SPO2 low this morning, patient currently at 85% SPO2. Will re-attempt patient as schedule permits and with patient appropriateness. SIGNATURE: Aurelia Briseno PTA PATIENT NAME: David Briceno DATE: September 21, 2018 TIME: 10:32 AM PROGRESS Observed: 09/21/2018 Status: COMPLETED Source: [place] 10:16 AM CLINIC OTHER CAMPUS REPOSITORY HNO ID: [id number] Author: Delphine Martines Service: Hospital Medicine Author Type: Physician Type: Progress Notes Filed: 09/21/2018 10:16 AM Note Text: SERVICE DATE: 09/21/2018 SERVICE TIME: 10:16 AM HOSPITAL MEDICINE PROGRESS NOTE SERVICE DATE: 09/15/2018 SERVICE TIME: 3:00PM Primary Care Physician: Tati Medina MD NIGHT AND WEEKEND COVERAGE: Nights: Please contact pager [phone]. HPI: Mr. Briceno is a 73 yo gentleman who has been transferred to [place] ICU from [facility] ED with complaints of shortness of breath. His past medical history includes pulmonary fibrosis (previously has followed w/Dr Hein in [place]) - undetermined etiology, emphysema, HTN, GERD, DVT (Aug 2018) - on Xarelto prior to admission, recently diagnosed rheumatoid arthritis (not on immunosuppressive tx), CAD S/P CABG in 2005. He is a former smoker, 40-50 pack years, quit in 1996. ? Patient states that he has had multiple recent admissions to [facility] for pneumonia - once in April, and then most recently in August. Spent several weeks at [facility] in August 2018, during which time he was treated for pneumonia, ?COPD exacerbation, DVTs - started on Xarelto. Patient states he was treated with steroids, antibiotics, bronchodilators. Still had very high FiO2 requirements at discharge. Family reports requiring 15L/min O2 NC with exertion, 6L/min O2 NC at rest. He was discharged to a facility ([facility]) that they were told could accommodate these needs, however upon arrival, it was determined that the facility would be unable to provide this amount of supplemental oxygen, and he was sent back to the emergency department. He reports that has been experiencing shortness of breath, cough that is occasionally productive of brown sputum (occasionally blood tinged). He reports associated left sided pleuritic discomfort. He denies fever/chills, wheeze, abd pain, nausea, vomiting, diarrhea, lower extremity edema, focal neurologic deficits. ? Patient reports that he was following with Dr. Hein (pulmonary - [place]) for progressively worsening shortness of breath. He was told that he has pulmonary fibrosis, and there had been concern that this could be related to rheumatoid arthritis. He was subsequently referred to rheumatology, and diagnosed with RA several weeks ago. No immunosuppressive therapy has been started. He states he was taking Breo and ProAir at home prior to admission. Patient's family states that he did not require any supplemental oxygen prior to his last hospital admission. He was experiencing dyspnea, however he was still fairly active (ie had been doing yard work, etc). He is a former smoker, 40-50 pack years, quit in 1996. 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 // No acute events overnight. Reviewed CT chest and US LL results. Patient and family reassured. No complaints. SUBJECTIVE: . Patient continues to feel a little better again, high flow down to 45%. Said he slept well again last night. Less nasal soreness. Feels SOB when moves around still, including transferring from bed to chair/commode. He finds it difficult getting out of bed. No worsening cough or congestion. Denies chest pain or increased edema; is back on his Lasix though forgot how much he has taken previously at home. He is tolerating meals, with no N/V or abdominal pain; says actually eating too much. (+) BMs. He is less anxious he says since his breathing is improved. He is agreeable to LTAC placement and that is pending. MEDICATIONS: Reviewed Objective PHYSICAL EXAM: BP 145/82 Pulse 98 Temp (Src) 97.7 (Temporal Artery) Resp 18 Ht 5' 9 (1.75m) Wt 186 lb 1.6 oz (84.4kg) SpO2 92% BMI 27.47 kg/(m2). Physical Exam Performed: GENERAL: Alert, no distress, cooperative, sitting up in bed, family not at bedside SKIN: Skin color normal. Warm, dry. EYES: PERRL, EOMI OROPHARYNX: Lips, mucosa, and tongue normal. NECK: Supple, soft BACK: No CVAT. LUNGS: Unlabored on high-flow, rales at bases. CARDIAC: Normal S1 and S2; no rubs ABDOMEN: (+) BS, abdomen soft AND non-tender EXTREMITIES: No LE edema. No calf tenderness. Good capillary refill NEURO: AANDO X3 PULSES: 2+ radial, 2+ DP Lines, Drains, and Airways Line Peripheral 09/11/18 Admission to Hospital Short Left Forearm 20 Gauge 10 days Reviewed lines, drains, AND airways. Need to be continued during admission ASSESSMENT AND PLAN Assessment AND Plan, all Hosp Problems Active Hospital Problems as of 09/21/2018 Noted - Resolved Hospital Acute respiratory failure (HCC) 09/11/2018 - Present Current Assessment AND Plan - Patient with apparent acute on chronic hypoxemic respiratory failure secondary to AECOPD and concomitant pulmonary fibrosis, in patient with underlying asbestos exposure (former stitch welder) and history of nicotine dependence to cigarettes. - Of note, patient has had recent diagnosis of apparent RA. - Per pulmonology, differential diagnosis of this ILD includes IPF, non specific interstitial pneumonitis (NSIP), rheumatoid lung disease, asbestosis. - BNP r/o HF, echocardiogram showed EF 61%, no diastolic dysfunction - CT chest showed multifocal bilateral pulmonary infiltrates on background of severe COPD/emphysema, not deemed pneumonia at this time per pulm/signals analyst; also showed lung nodules - On aerosols, weaning O2 as able, on decreased high flow, on prednisone - Per pulmonology, who is on consult, to have further evaluation and treatment options discussed at [facility] Interdisciplinary ILD conference this week - LTAC placement is pending ILD (interstitial lung disease) ([facility]) 09/14/2018 - Present Current Assessment AND Plan As per above. Pulmonology is on consult DVT (deep venous thrombosis) ([facility]) 08/06/2018 - Present Current Assessment AND Plan - Recent diagnosis of DVT - Diagnosed 08/2018 per patient/family, with bilateral LE involvement per them. - ?provoked in setting of recent prior hospitalizations - LE DVT US was negative - Continue Xarelto course Arthritis 09/05/2018 - Present Current Assessment AND Plan - Possible RA - Recent diagnosis, with positive RF - Not on meds, further outpatient management Abnormal CT scan, gastrointestinal tract 09/15/2018 - Present Current Assessment AND Plan As above, recommended MRI pancreas with contrast at some point Leukocytosis 09/15/2018 - Present Current Assessment AND Plan Follow up labs show elevated WBC Is on steroids; no fever. Hypertension, essential 09/05/2018 - Present MGUS (monoclonal gammopathy of unknown significance) Unknown - Present Secondary pulmonary arterial hypertension (HCC) 09/05/2018 - Present Medication and Non-Pharmacologic VTE Prophylaxis/Anticoagulants Anticoagulant AND Antiplatelet Medications Start Dose Route Frequency Ordered Stop 09/11/18 1730 rivaroxaban 20 mg tab(s) (XARELTO) (rivaroxaban DVT/PE CONTINUATION of therapy beyond 21 days) 20 mg ORAL DAILY WITH DINNER 09/11/18 1729 -- 09/11/18 1715 activity - mobilize patient (ak,ma) VTE Prophylaxis: VTE prophylaxis appropriate Plan of care discussed with: Patient SIGNATURE: Delphine Martines MD PATIENT NAME: David Briceno DATE: September 21, 2018 TIME: 10:16 AM PAGER/CONTACT #: [phone] CONSULT PROG Observed: 09/21/2018 Status: COMPLETED Source: [place] 10:13 AM CLINIC OTHER CAMPUS REPOSITORY HNO ID: [id number] Author: Lenora Dent Service: Pulmonary Disease Author Type: Physician Type: Consult Progress Note Filed: 09/21/2018 3:06 PM Note Text: Attending Note I have personally performed a face to face assessment of the patient and have reviewed the PA/METAL HANGER note. My fan findings include: Assessment/Plan are Acute on chronic hypoxemic respiratory failure secondary to COPD exacerbation and pulmonary fibrosis with superimposed pneumonia that has already been treated at [facility] with IV antibiotics. Patient is still requiring high dose of oxygen currently on high flow 45%. Getting slowly better on DuoNeb nebulized in addition to budesonide. On by mouth prednisone to be tapered and discontinued. Also on diuresis with Lasix 20 mg daily. Normal echocardiogram and NT pro BNP level. I will didn't give him a course of antibiotics since that has been treated already at [facility]. The patient will need follow- up CT scan chest in 6 weeks for follow-up. Patient is being transferred to LTAC Other additions or changes: None I spent 35 minutes in the visit, with more than 50% of the total [id number] time of the visit in counseling / coordination of care. 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 Wean as able. Continue nebulized budesonide 0.5 mg BID, DuoNeb QID. Taper steroids --> prednisone 40 mg daily. Encourage bronchopulmonary hygiene, incentive spirometry. Continue anticoagulation --> Xarelto. Continue gentle diuresis, Lasix 20 mg PO QD. Daily PPI, pantoprazole. Consider MRI pancreas per CT chest report, non-emergent. Plan discussed in detail with patient, RN and primary attending. Patient verbalizes understanding and is in agreement with the current management plan. Total time spent in patient care includes but is not limited to patient/ family discussions, collaborative discussions with other healthcare providers, review of medical records, review of laboratory tests, radiology images/ results, microbiology and pathology data. SUBJECTIVE CHIEF COMPLAINT: SOB INTERVAL HPI: David Briceno is a 73 year old male status since previous days visit is improving. He does report some increased dyspnea this AM, but attributes this to exertion - has been working with PT. Does c/o cough, not productive. No wheezing. No fevers, chills, night sweats, chest pain, abd pain or leg swelling. MEDICATIONS: Current Facility-Administered Medications: acetaminophen 650 mg tab(s) (TYLENOL) 650 mg ORAL q 6 H PRN albuterol 2.5 mg /3 mL (0.083 %) 2.5 mg (PROVENTIL) 2.5 mg INHALATION q 6 H PRN amLODIPine 10 mg tab(s) (NORVASC) 10 mg ORAL DAILY atorvastatin 20 mg tab(s) (LIPITOR) 20 mg ORAL DAILY budesonide 0.5 mg/2 mL 0.5 mg (PULMICORT) 0.5 mg INHALATION BID docusate sodium 100 mg cap(s) (COLACE) 100 mg ORAL BID furosemide 20 mg tab(s) (LASIX) 20 mg ORAL DAILY hydrOXYzine pamoate 25 mg cap(s) (VISTARIL) 25 mg ORAL HS PRN ipratropium-albuterol 3 mL nebulizer solution (DUONEB) 3 mL INHALATION QID magnesium hydroxide 400 mg/5 mL 30 mL (MOM) 30 mL ORAL BID PRN metoprolol tartrate (short acting) 25 mg tab(s) (LOPRESSOR) 25 mg ORAL q 12 H nitroglycerin sublingual 0.4 mg tab(s) (NITROQUICK) 0.4 mg SUBLINGUAL q 5 MIN PRN ondansetron orally disintegrating 4 mg tab(s) (ZOFRAN ODT) 4 mg ORAL q 6 H PRN Or ondansetron (PF) 4 mg injection (ZOFRAN) 4 mg INTRAVENOUS q [address] 20 mg tab(s) (PROTONIX) 20 mg ORAL DAILY (6 AM) predniSONE 40 mg tab(s) (DELTASONE) 40 mg ORAL BID rivaroxaban 20 mg tab(s) (XARELTO) 20 mg ORAL DAILY wDINNER sodium chloride 0.65 % 2 Winder (AYR, OCEAN) 2 Winder EACH NOSTRIL PRN therapeutic multivitamin with iron (THERAGRAN-M) 1 tablet ORAL DAILY CURRENT ALLERGIES: ALLERGIES Allergen Reactions - Aceon [Perindopril * Other: See Comments Allergy testing - Augmentin [Amoxicil* Intolerance - Colchicine Swelling - Hydrocodone Mental Status Change sweating - Iv Contrast [Iodine] Swelling - Naproxen Other: See Comments Blood pressure went up, sweaty Patient Vitals for the past 24 hrs: BP Temp Temp src Pulse Resp SpO2 Weight 09/21/18 0801 - - - 98 18 92 % - 09/21/18 0733 145/82 36.5 ?C (97.7 ?F) Temporal Art 69 18 94 % - 09/21/18 0700 - - - - - - 84.4 kg (186 lb 1.6 oz) 09/21/18 0455 - - - 70 - - - 09/21/18 0444 114/65 36.6 ?C (97.8 ?F) Oral (!) 59 15 95 % - 09/21/18 0009 - - - 75 - 98 % - 09/21/18 0003 111/67 36.5 ?C (97.7 ?F) Oral (!) 58 16 98 % - 09/20/18 1940 - - - 72 18 95 % - 09/20/18 1936 112/66 36.4 ?C (97.5 ?F) Tympanic 71 16 95 % - 09/20/18 1557 - - - 70 18 95 % - 09/20/18 1524 112/67 36.6 ?C (97.9 ?F) Oral 73 18 94 % - 09/20/18 1249 99/59 - - - - - - 09/20/18 1158 - - - 68 18 93 % - 09/20/18 1111 96/66 36.4 ?C (97.5 ?F) Oral 73 18 92 % - Intake/Output Summary (Last 24 hours) at 09/21/18 1013 Last data filed at 09/21/18 0930 Gross per 24 hour Intake 980 ml Output 1545 ml Net -565 ml OBJECTIVE PHYSICAL EXAM: BP 145/82 Pulse 98 Temp (Src) 97.7 (Temporal Artery) Resp 18 Ht 5' 9 (1.75m) Wt 186 lb 1.6 oz (84.4kg) SpO2 92% BMI 27.47 kg/(m2). 55% high flow O2 General appearance: well appearing, alert and in no acute distress Respiratory: lungs clear to auscultation no wheezing or rhonchi Cardiovascular: RRR without murmur, gallop, or rubs. Abdomen: Soft, non tender, non distended. Extremities: No clubbing or cyanosis. No peripheral edema. DATA Diagnostic tests reviewed for today's visit, films/specimens were personally reviewed by me: Most recent labs and imaging results. CBC, Coags, BMP, Mg, Phos Recent Labs 09/21/18 0658 09/19/18 0443 WBC 16.42* 13.98* HB 13.5 13.0 HCT 41.7 40.4 PLT 262 210 NA 137 -- K 4.1 -- CHLOR 99 -- CO2 30 -- BUN 14 -- CREAT 0.59* -- GLUC 108* -- CA 8.5 -- CT chest, [id number]: multifocal bilateral pulmonary infiltrates, superimposed on a background of moderate to severe pulmonary emphysema; a few lung nodules measuring up to 5 mm; small area of focal contour bulge along the anterior pancreatic tail - unclear whether this represents a small focus of exophytic pancreatic tissue or a small mass. SIGNATURE: Vashti Ireland PA-C PATIENT NAME: David Briceno DATE: September 21, 2018 TIME: 10:13 AM THERAPY NT Observed: 09/21/2018 Status: COMPLETED Source: [place] 10:06 AM CLINIC OTHER CAMPUS REPOSITORY HNO ID: [id number] Author: Soren (Ot) Sonya Service: Occupational Therapy Author Type: Occupational Therapist Type: Therapy (PT/OT/Speech/Resp) Filed: 09/21/2018 10:13 AM Note Text: Occupational Therapy Treatment SERVICE DATE: 09/21/2018 SERVICE TIME: 0935 to 0955 ROOM: [place] [address] Recommended Discharge Disposition: Subacute/SNF Recommended Discharge Disposition Comments: Patient is functioning below baseline and would benefit from continued therapy at discharge to increase ease independence and safety with ADLS and functional mobility tasks Justification For Post Acute Needs: Cognition intact;Good family support;Living the community premorbidly;Motivated;Willing to participate;Anticipate that patient will require daily (5x/wk) skilled therapy in a post-acute facility setting at the time of acute hospital discharge Anticipated Discharge Needs: Family Training;Physical Assist at Home;Supervision at Home Physical Assist at Home for: Cleaning;Laundry;Meals;Medication Management;Stairs;Safety;Self Care;Shopping;Transportation Supervision at Home due to: Other: See Comment (for safety) OT Recommendations to Nursing: ADL?s in chair;Bedside Commode for Toileting;OOB for meals;Edge of bed ADL?s;Transfer to Chair;With assist of 1 person Equipment: Commode-Bedside (LRAD, gait belt) OT 6 Clicks Score: 20 Precautions/Activity Restrictions: Fall Risk;Lines/Tubes/Drains Precaution/Activity Restriction Comments: per MD note, target SpO2 >90% ASSESSMENT: Patient presents with decreased activity tolerance with O2 sats dropping quickly requiring Hi-Flow oxygen decreasing ease independence and safety with ADLS and functional mobility tasks. Patietn agreeable to any activity however due to O2 sats limited in what he is able to complete. Completed sit to stand to and from bedside chair with CG and cues for technique and participated in B UPPER EXTREMITY AROM exercises with frequent rest breaks required throughout session and cues for proper breathing technique. . Requires skilled OT for increasing overall activity tolerance and strength for increased ease independece and safety with ADLS and functional mobility tasks. . Patient Disposition at Start of Session: OOB in Chair;Call [place] in Reach Patient Disposition at End of Session: OOB in Chair;Call [place] in Reach Tolerance Limited By Physiologic Response;Other: See Comment (low O2 sats) Occupational Therapy Problem List: Impaired Self Care;Decreased Activity Tolerance;Decreased Strength;Functional Mobility Impairment;Balance Impaired Patient /Caregiver Goals: Go To Rehab Goals for Plan of Care: Able to perform HEP with: Modified Independent (for functional BUE strengthening and activ tolerance) Lower Body Dressing with: Supervision Chair Transfer with: Supervision Toilet Transfer with: Supervision Tolerate (minutes of functional activity): 5 (with SpO2 >90%) Functional Activity with: Supervision Demonstrate Competence With Education with: Independent (for use of energy conserv techniques) Progress Toward Goals: Progressing as expected Rehab Potential: Good PLAN: Treatment Frequency (times per week): 2 Current admission Treatment Interventions: Education;Self Care / Home Management;Energy Conservation Training;Strengthening;Functional Mobility Training;Balance Training Plan of Care developed with: Patient TREATMENT INTERVENTIONS: Therapy Diagnosis: Reduced mobility-other;Decreased activities of daily living (ADL);Muscle Weakness (generalized);General symptoms and signs-other Interventions Provided: Therapeutic Exercise (22162);Self Skilled Nursing Management (65008) Therapeutic Exercise (88041) Treatment Minutes: 15 1 unit Skilled Intervention(s): Instruction in therapeutic exercise and completd 20 reps AROM with frequent rest breaks and cues for proper breathing technique Shoulder flexion/extension, shoulder abduction/adduction, elbow flexion/extension, sup/por, wrist flexion/extension, and digit flexion/extension. Verbal and tactile cuing provided to complete exercises Education in improtance of exercises to increase strength for increased overall ease with daily tasks Self Skilled Nursing Management (61556) Treatment Minutes: 5 0 units Skilled Intervention(s): Education in continued role of OT for increased ease with ADLS and daily tasks Completed sit to stand with cues for technique in preparation for ADL tasks however O2 sats dropped quickly with rest break required seated in bedside chair. Total Timed Code Treatment Minutes: 20 Total Treatment Time (minutes): 20 FUNCTIONAL G CODE: OT 6 Clicks Score: 20 (09/21/18934) Self Care Current Status (G8987): CJ (09/21/1835) Self Care Goal Status (G8988): CI (09/21/18934) Based on clinical assessment and the score on the 6 Clicks Functional Assessment Tool, the G code and corresponding severity modifiers are documented above. SUBJECTIVE: Current Hospital Course: Chart reviewed and no significant medical updates relevant to therapy were noted Reason for Occupational Therapy Consult: Patient presents to the ED on 09/11/18 with SOB, admitted to ICU. Transferred to regular nursing floor on 09/16/18. Referred to OT for safety assessment. Relevant Past Medical History: CAD, COPD, CABG, GERD, RA, DVT 08/2018, pulmonary fibrosis, emphysema, Asbestos exposure, HTN, ND, prostate CA Patient Report: Patient seated in bedside chair agreeable to OT I have trouble taking deep breaths Home Environment Patient Lives With: Spouse (Lives in a one level home with ) Assistance Available: 24 Hour Entry To Home: Stairs;With Rail Number Of Stairs Into Home: 10 Number Of Stairs To Bed/Bath: 0 Tub/Shower Type: walk-in shower and tub/shower combo Laundry: completes Equipment Owned: Standard Walker;Wheeled Walker Prior Functional Level: Within Functional Limits Prior Functional Level Comments: Prior to Pneumonia in April pt was independent; recently pt uses a FWW OBJECTIVE: Cognition/Communication Deficits Responsiveness: Alert;Awake Follows Commands: 3-step Commands CURRENT FUNCTIONAL STATUS: Current Activities of Daily Living Assist Level Feeding (not completed this session) Grooming (not completed this session) Bathing Upper Body (not completed this session) Bathing Lower Body (not completed this session) Dressing Upper Body (not completed this session) Dressing Lower Body (not completed this session) Toileting (not completed this session) Instrumental Activities of Daily Living Assist Level Meal/Beverage Prep Light Cleaning Laundry Medication Management with Strategies Functional Mobility Assist Level Rolling Supine to Sit (not completed this session) Sit to Supine Scooting (not completed this session) Sit to Stand Contact Guard Assistance (from bedside chair) Stand to Sit Contact Guard Assistance (to bedside chair) Bed to Chair Contact Guard Assistance Stand Pivot Gait Belt Toilet/Commode Functional Mobility Balance: Static Sitting;Dynamic Sitting;Dynamic Standing Static Sitting Balance: Independent Dynamic Sitting Balance: Stand By Assistance (to Supervision) Dynamic Standing Balance: Contact Guard Assistance Activity Tolerance: (fatigues quickly with O2 sats dropping) Standing Activity: bed-chair transfer Please see discipline specific clinical documentation flowsheet for complete details for this therapy evaluation/treatment. SIGNATURE: Soren Hassan OTR/L PATIENT NAME: David Briceno DATE: September 21, 2018 TIME: 10:06 AM CASE MANAGEM Observed: 09/21/2018 Status: COMPLETED Source: [place] 9:55 AM CLINIC OTHER [place] REPOSITORY HNO ID: [id number] Author: Didi Jimenez (Rn) ALEJO Jesus Service: Case Management Author Type: Registered Nurse Type: Care Mgt Progress Note Filed: 09/21/2018 10:11 AM Note Text: CARE MANAGEMENT PROGRESS NOTE SERVICE DATE: 09/21/2018 SERVICE TIME: 9:55 AM LOS: 10 days EMR reviewed. Admit Dx Acute respiratory failure, Pt on Hi- Flow 55% today. On oral Lasix, oral Prednisone. [facility] working on Precert. POSSIBLE DC TODAY. SIGNATURE: Didi Jesus RN PATIENT NAME: David Briceno DATE: September 21, 2018 TIME: 9:55 AM PAGER/CONTACT #: [phone] CBC Collected: 09/21/2018 Status: F Source: [place] 6:58 AM CLINIC OTHER CAMPUS REPOSITORY TYPE CODE TESTS RESULT OUT OF REFERENCE UNITS RANGE LAB WBC 3.70-11.00 k/uL WBC High 16.42 LAB RBC 4.20-6.00 m/uL RBC 4.58 LAB HGB 13.0-17.0 g/dL Hemoglobin 13.5 LAB HCT 39.0-51.0 % Hematocrit 41.7 LAB MCV 80.0-100.0 fL MCV 91.0 LAB MCH 26.0-34.0 pG MCH 29.5 LAB MCHC 30.5-36.0 g/dL MCHC 32.4 LAB RDWCV 11.5-15.0 % RDW-CV High 15.3 LAB PLTCT 150-400 k/uL Platelet Count 262 LAB MPV 9.0-12.7 fL MPV 9.6 Performed By: #### CBC, BMP #### [facility] [address] [facility] [phone] BASIC METABOLIC PANL Collected: 09/21/2018 Status: F Source: [place] 6:58 AM CLINIC OTHER CAMPUS REPOSITORY TYPE CODE TESTS RESULT OUT OF REFERENCE UNITS RANGE LAB GLU 74-99 mg/dL High Glucose 108 Result Comment: The [place] Diabetes Association (ADA) provides guidance for cutoff values for fasting glucose and random glucose. The ADA defines fasting as no caloric intake for at least 8 hours. Fas ting plasma glucose results between 100 to 125 mg/dL indicate increased risk for diabetes (prediabetes). Fasting plasma glucose results greater than or equal to 126 mg/dL meet the criteria for diagnosis of diabetes. In the absence of unequivocal hyperglycemia, results should be confirmed by repeat testing. In a patient with classic symptoms of hyperglycemia or hyperglycemic crisis, random plasma glucose results greater than or equal to 200 mg/dL meet the criteria for diagnosis of diabetes. Reference: Standards of Medical Care in Diabetes 2016, [place] [employer] Association. Diabetes Care. 2016.39(Suppl 1). LAB BUN 9-24 mg/dL BUN 14 LAB CRET 0.73-1.22 mg/dL Creatinine Low 0.59 LAB NA 136-144 mmol/L Sodium 137 LAB K 3.7-5.1 mmol/L Potassium 4.1 LAB CL 97-105 mmol/L Chloride 99 LAB CO2 22-30 mmol/L CO2 30 LAB AGAP 9-18 mmol/L Anion Gap Low 8 LAB CA 8.5-10.2 mg/dL Calcium, Total 8.5 LAB GFRAA eGFR- Amer. >60 LAB GFRNAA . eGFR-All Other Races >60 Result Comment: eGFR (Estimated GFR) Units of measure: mL/min/1.73 meters squared eGFR is derived from the reexpressed MDRD Study equation using the following parameters: serum creatinine, age, gender and race. The creatinine assay has been calibrated to be traceable to IDMS. An eGFR <60 mL/min/1.73m2 for >3 months is consistent with chronic kidney disease. Refer to KDOQI guidelines for clinical interpretation. In patients with unstable renal function, e.g. those with acute kidney injury, the eGFR may not accurately reflect actual GFR. Performed By: #### CBC, BMP #### [facility] [address] [facility] [phone] PROGRESS Observed: 09/20/2018 Status: COMPLETED Source: [place] 9:38 AM CLINIC OTHER CAMPUS REPOSITORY HNO ID: [id number] Author: Delphine Martines Service: Hospital Medicine Author Type: Physician Type: Progress Notes Filed: 09/20/2018 9:39 AM Note Text: SERVICE DATE: 09/20/2018 SERVICE TIME: 9:38 AM HOSPITAL MEDICINE PROGRESS NOTE SERVICE DATE: 09/15/2018 SERVICE TIME: 3:00PM Primary Care Physician: Tati Medina MD NIGHT AND WEEKEND COVERAGE: Nights: Please contact pager [phone]. HPI: Mr. Briceno is a 73 yo gentleman who has been transferred to [facility] from [facility] ED with complaints of shortness of breath. His past medical history includes pulmonary fibrosis (previously has followed w/Dr Hein in [place]) - undetermined etiology, emphysema, HTN, GERD, DVT (Aug 2018) - on Xarelto prior to admission, recently diagnosed rheumatoid arthritis (not on immunosuppressive tx), CAD S/P CABG in 2005. He is a former smoker, 40-50 pack years, quit in 1996. ? Patient states that he has had multiple recent admissions to [facility] for pneumonia - once in April, and then most recently in August. Spent several weeks at [facility] in August 2018, during which time he was treated for pneumonia, ?COPD exacerbation, DVTs - started on Xarelto. Patient states he was treated with steroids, antibiotics, bronchodilators. Still had very high FiO2 requirements at discharge. Family reports requiring 15L/min O2 NC with exertion, 6L/min O2 NC at rest. He was discharged to a facility ([facility]) that they were told could accommodate these needs, however upon arrival, it was determined that the facility would be unable to provide this amount of supplemental oxygen, and he was sent back to the emergency department. He reports that has been experiencing shortness of breath, cough that is occasionally productive of brown sputum (occasionally blood tinged). He reports associated left sided pleuritic discomfort. He denies fever/chills, wheeze, abd pain, nausea, vomiting, diarrhea, lower extremity edema, focal neurologic deficits. ? Patient reports that he was following with Dr. Hein (pulmonary - [place]) for progressively worsening shortness of breath. He was told that he has pulmonary fibrosis, and there had been concern that this could be related to rheumatoid arthritis. He was subsequently referred to rheumatology, and diagnosed with RA several weeks ago. No immunosuppressive therapy has been started. He states he was taking Breo and ProAir at home prior to admission. Patient's family states that he did not require any supplemental oxygen prior to his last hospital admission. He was experiencing dyspnea, however he was still fairly active (ie had been doing yard work, etc). He is a former smoker, 40-50 pack years, quit in 1996. 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 // No acute events overnight. Reviewed CT chest and US LL results. Patient and family reassured. No complaints. SUBJECTIVE: . Patient continues to feel a little better, high flow down to 30. Said he slept well last night. Less nasal soreness. Feels SOB when moves around still, including transferring from bed to chair/commode. He finds it difficult getting out of bed. No worsening cough or congestion. Denies chest pain or increased edema. He is tolerating meals, with no N/V or abdominal pain. He is less anxious he says since his breathing is improved. He is having BMs. Pulmonology continues to follow. He is agreeable to LTAC placement and that is pending. MEDICATIONS: Reviewed Objective PHYSICAL EXAM: BP 124/68 Pulse 71 Temp (Src) 97.3 (Oral) Resp 18 Ht 5' 9 (1.75m) Wt 185 lb 4.8 oz (84.1kg) SpO2 94% BMI 27.35 kg/(m2). Physical Exam Performed: GENERAL: Alert, no distress, cooperative, sitting up in chair, family not at bedside SKIN: Skin color normal. Warm, dry. EYES: PERRL, EOMI OROPHARYNX: Lips, mucosa, and tongue normal. NECK: Supple, soft BACK: No CVAT. LUNGS: Unlabored on high-flow, rales at bases. CARDIAC: Normal S1 and S2; no rubs ABDOMEN: Abdomen soft, non-tender, BS (+) EXTREMITIES: No LE edema. No calf tenderness. Good capillary refill NEURO: AANDO X3. 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 - Of note, patient has had recent diagnosis of apparent RA. - Per pulmonology, differential diagnosis of this ILD includes IPF, non specific interstitial pneumonitis (NSIP), rheumatoid lung disease, asbestosis. - BNP r/o HF, echocardiogram showed EF 61%, no diastolic dysfunction - CT chest showed multifocal bilateral pulmonary infiltrates on background of severe COPD/emphysema, not deemed pneumonia at this time per pulm/signals analyst; also showed lung nodules - On aerosols, weaning O2 as able, on decreased high flow, on oral prednisone - Per pulmonology, to have further evaluation and treatment options discussed at [facility] Interdisciplinary ILD conference this coming week - Pulmonology is on consult - LTAC placement is pending ILD (interstitial lung disease) ([facility]) 09/14/2018 - Present Current Assessment AND Plan As per above. Pulmonology is on consult DVT (deep venous thrombosis) ([facility]) 08/06/2018 - Present Current Assessment AND Plan - Recent diagnosis of DVT - Diagnosed 08/2018 per patient/family, with bilateral LE involvement per them. - On Xarelto; ?provoked in setting of recent prior hospitalizations - LE DVT US was negative - Continue Xarelto course Arthritis 09/05/2018 - Present Current Assessment AND Plan - Possible RA - Recent diagnosis, with positive RF - Not on meds, further outpatient management Abnormal CT scan, gastrointestinal tract 09/15/2018 - Present Current Assessment AND Plan As above, recommended MRI pancreas with contrast at some point Leukocytosis 09/15/2018 - Present Current Assessment AND Plan Follow up labs show elevated WBC Is on steroids Hypertension, essential 09/05/2018 - Present MGUS (monoclonal gammopathy of unknown significance) Unknown - Present Secondary pulmonary arterial hypertension (HCC) 09/05/2018 - Present Medication and Non-Pharmacologic VTE Prophylaxis/Anticoagulants Anticoagulant AND Antiplatelet Medications Start Dose Route Frequency Ordered Stop 09/11/18 1730 rivaroxaban 20 mg tab(s) (XARELTO) (rivaroxaban DVT/PE CONTINUATION of therapy beyond 21 days) 20 mg ORAL DAILY WITH DINNER 09/11/18 1729 -- 09/11/18 1715 activity - mobilize patient (fl,oh) VTE Prophylaxis: VTE prophylaxis appropriate Plan of care discussed with: Patient SIGNATURE: Delphine Martines MD PATIENT NAME: David Briceno DATE: September 20, 2018 TIME: 9:38 AM PAGER/CONTACT #: [phone] CONSULT PROG Observed: 09/19/2018 Status: COMPLETED Source: [place] 1:13 PM CLINIC OTHER CAMPUS REPOSITORY O ID: [id number] Author: Ronda Hi Service: Pulmonary Disease Author Type: Physician Type: Consult Progress Note Filed: 09/19/2018 1:23 PM Note Text: [facility] INPATIENT CONSULT PROGRESS NOTE SERVICE DATE: September 19, 2018 Admission Date: 09/11/2018 [facility] STAFF PHYSICIAN NOTE OF PERSONAL INVOLVEMENT IN CARE IMPRESSION: This is a 73 year old male with # Acute on chronic hypoxemic respiratory failure multifactorial CPFE likely # H/o DVT LL on AC PLAN: - Continue supplemental FiO2 - Wean to Spo2 of 92% - Continue Prednisone 40 mg BID -Continue current breathing treatment - PT/OT - ILD discussion meeting planned per Dr Barker - Pending transition to LTACH for weaning high o2 requirements - Continuing AC for DVT - Continue gentle diuresis Patient/Family Updated: Patient, David Briceno, and Patient's Next of Kin/Point of Contact, , spouse/significant other and child, updated regarding the goals of care, medical plan for the day, data warehouse consultant recommendations, medical disposition and current medical condition/prognosis as and if clinically indicated. All questions and concerns were answered and addressed at this juncture. This patient has a high probability of sudden, clinically significant deterioration, which requires the highest level of physician preparedness to intervene urgently. I managed/supervised life or organ supporting interventions that required frequent physician assessment. I devoted my full attention to the direct care of this patient for the amount of time indicated below. Time I spent with family or surrogate(s) is included only if the patient was incapable of providing the necessary information or participating in medical decision making. Time devoted to teaching and to any procedures I billed separately is not included. OBJECTIVE: Patient was seen and examined today with family at bedside. His main complaint remains to be the SOB with exertion associated with drop in his Spo2. Afebrile. No acute events overnight. No signs of respiratory distress, On HF NC 45% VITAL SIGNS (last 24hrs min/max): Patient Vitals for the past 24 hrs: BP Temp Temp src Pulse Resp SpO2 Weight 09/19/18 1201 - - - 63 20 - - 09/19/18 1148 - - - 62 18 96 % - 09/19/18 1132 102/55 36.4 ?C (97.5 ?F) Oral 61 18 97 % - 09/19/18 1117 - - - - - 96 % - 09/19/18 0937 - - - - - 94 % - 09/19/18 0854 - 36.6 ?C (97.8 ?F) Oral - 20 92 % - 09/19/18 0851 112/66 - - 77 - - - 09/19/18 0826 - - - 68 20 95 % - 09/19/18 0803 - - - 66 20 96 % - 09/19/18 0600 - - - - - - 81.8 kg (180 lb 5.4 oz) 09/19/18 0446 114/70 36.5 ?C (97.7 ?F) Oral (!) 58 19 96 % - 09/19/18 0434 - - - - - 99 % - 09/19/18 0007 106/61 36.4 ?C (97.5 ?F) Oral (!) 56 18 99 % - 09/18/182053 - - - 68 20 - - 09/18/180 - - - 67 20 98 % - 09/18/18 1921 108/60 36.5 ?C (97.7 ?F) Oral 65 16 99 % - 09/18/18 1635 117/67 36.8 ?C (98.2 ?F) Oral 72 18 98 % - 09/18/18 1624 - - - 88 20 - - 09/18/18 1611 - - - 84 20 96 % - Vital signs reviewed. NET FLUID BALANCE Intake/Output Summary (Last 24 hours) at 09/19/18 1314 Last data filed at 09/19/18 1143 Gross per 24 hour Intake 1030 ml Output 1650 ml Net -620 ml MEDICATIONS Hospital/inpatient medications reviewed PHYSICAL EXAM: Neurologic: Awake, oriented, Alert, Follows commands and Moving all extremities Oral Mucosa: Moist mucous membranes Feeding Tube: No Eyes: PERRLA Neck: Unremarkable; No adenopathy or JVD Cardiovascular: Regular rhythm Respiratory: Reduced breath sounds bilat Supplemental Oxygen: Yes. FiO2 45% HF No Data Recorded Abdomen: Soft, Nontender and Positive bowel sounds Extremities: Edema- No Peripheral Pulses- Present all extremities NUTRITION: Enteral Feeds: Yes DATA: Diagnostic tests reviewed for today's visit: Most recent labs and imaging results. Most recent labs Most recent imaging CBC, Coags, BMP, Mg, Phos Recent Labs 09/19/18 0443 09/17/18 0527 WBC 13.98* 15.65* HB 13.0 12.6* HCT 40.4 38.4* PLT 210 181 NA -- 138 K -- 4.2 CHLOR -- 99 CO2 -- 28 BUN -- 14 CREAT -- 0.62* GLUC -- 120* CA -- 8.4* Liver Function, Amylase, AND Lipase Cardiac Enzymes ABGs PATIENT CHECKLIST ? Are restraints necessary: No ? Deep vein thrombosis prophylaxis administered? Yes . ? Stress ulcer prophylaxis? Yes ? Nasogastric tube? No ? Mcneil catheter necessary? No ? Is central line essential? No ? Plan discussed with assigned RN? Yes ? Family updated within last 24 hours? Yes Ronda Hi MD Pulmonary / CC Staff PAGER: [phone] DATE of SERVICE:09/19/2018 TIME of SERVICE: 1:14 PM PROGRESS Observed: 09/19/2018 Status: COMPLETED Source: [place] 9:24 AM CLINIC OTHER CAMPUS REPOSITORY HNO ID: [id number] Author: Delphine Martines Service: Hospital Medicine Author Type: Physician Type: Progress Notes Filed: 09/19/2018 9:25 AM Note Text: SERVICE DATE: 09/19/2018 SERVICE TIME: 9:24 AM HOSPITAL MEDICINE PROGRESS NOTE Primary Care Physician: Tati Medina MD NIGHT AND WEEKEND COVERAGE: Nights: Please contact pager [phone]. HPI: Mr. Briceno is a 73 yo gentleman who has been transferred to [facility] from [facility] ED with complaints of shortness of breath. His past medical history includes pulmonary fibrosis (previously has followed w/Dr Hein in [place]) - undetermined etiology, emphysema, HTN, GERD, DVT (Aug 2018) - on Xarelto prior to admission, recently diagnosed rheumatoid arthritis (not on immunosuppressive tx), CAD S/P CABG in 2005. He is a former smoker, 40-50 pack years, quit in 1996. ? Patient states that he has had multiple recent admissions to [facility] for pneumonia - once in April, and then most recently in August. Spent several weeks at [facility] in August 2018, during which time he was treated for pneumonia, ?COPD exacerbation, DVTs - started on Xarelto. Patient states he was treated with steroids, antibiotics, bronchodilators. Still had very high FiO2 requirements at discharge. Family reports requiring 15L/min O2 NC with exertion, 6L/min O2 NC at rest. He was discharged to a facility ([facility]) that they were told could accommodate these needs, however upon arrival, it was determined that the facility would be unable to provide this amount of supplemental oxygen, and he was sent back to the emergency department. He reports that has been experiencing shortness of breath, cough that is occasionally productive of brown sputum (occasionally blood tinged). He reports associated left sided pleuritic discomfort. He denies fever/chills, wheeze, abd pain, nausea, vomiting, diarrhea, lower extremity edema, focal neurologic deficits. ? Patient reports that he was following with Dr. Hein (pulmonary - [place]) for progressively worsening shortness of breath. He was told that he has pulmonary fibrosis, and there had been concern that this could be related to rheumatoid arthritis. He was subsequently referred to rheumatology, and diagnosed with RA several weeks ago. No immunosuppressive therapy has been started. He states he was taking Breo and ProAir at home prior to admission. Patient's family states that he did not require any supplemental oxygen prior to his last hospital admission. He was experiencing dyspnea, however he was still fairly active (ie had been doing yard work, etc). He is a former smoker, 40-50 pack years, quit in 1996. 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 // No acute events overnight. Reviewed CT chest and US LL results. Patient and family reassured. No complaints. SUBJECTIVE: Patient continues to feel a little better, high flow down to 45% today. Said he slept last night about 4-5 hours. Less nasal soreness. Expelled a clot from his nose day prior, thinks he may have one in his left nostril. Feels SOB when moves around still, including transferring from bed to chair. No worsening cough or congestion. Denies chest pain or edema, though is asking about resumption of his Lasix. He is tolerating meals, with no N/V or abdominal pain. He is less anxious he says since his breathing is improved. He is having BMs. Pulmonology continues to follow. He is agreeable to LTAC placement and that is pending. MEDICATIONS: Reviewed Objective PHYSICAL EXAM: BP 112/66 Pulse 77 Temp (Src) 97.8 (Oral) Resp 20 Ht 5' 9 (1.75m) Wt 180 lb 5.4 oz (81.8kg) SpO2 92% BMI 26.62 kg/(m2). Physical Exam Performed: GENERAL: Alert, no distress, cooperative, sitting up in chair, family not present. SKIN: Skin color normal. Warm to touch, dry. EYES: PERRL, EOMI OROPHARYNX: Lips, mucosa, and tongue normal. NECK: Supple, soft BACK: No CVAT. LUNGS: Unlabored on high-flow, rales at bases. CARDIAC: Normal S1 and S2; no rubs ABDOMEN: Abdomen soft, non-tender, BS (+) EXTREMITIES: No LE edema. No calf tenderness. Good capillary refill NEURO: AANDO X3. PULSES: 2+ radial, 2+ DP Lines, Drains, and Airways Line Peripheral 09/11/18 Admission to Hospital Short Left Forearm 20 Gauge 8 days Reviewed lines, drains, AND airways. 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 - Of note, patient has had recent diagnosis of apparent RA. - Per pulmonology, differential diagnosis of this ILD includes IPF, non specific interstitial pneumonitis (NSIP), rheumatoid lung disease, asbestosis. - BNP r/o HF, echocardiogram showed EF 61%, no diastolic dysfunction - CT chest showed multifocal bilateral pulmonary infiltrates on background of severe COPD/emphysema, not deemed pneumonia at this time per pulm/signals analyst; also showed lung nodules - On aerosols, weaning O2 as able, on high flow, on oral prednisone - Per pulmonology, to have further evaluation and treatment options discussed at [facility] Interdisciplinary ILD conference next week - Follow up CT scans from [facility]. - Pulmonology is on consult - LTAC placement is pending ILD (interstitial lung disease) ([facility]) 09/14/2018 - Present Current Assessment AND Plan As per above. Pulmonology is on consult DVT (deep venous thrombosis) ([facility]) 08/06/2018 - Present Current Assessment AND Plan - Recent diagnosis of DVT - Diagnosed 08/2018 per patient/family, with bilateral LE involvement per them. - On Xarelto; ?provoked in setting of recent prior hospitalizations - Had LE pain AND paresthesias initially, resolved. - LE DVT US was negative - Continue Xarelto course Arthritis 09/05/2018 - Present Current Assessment AND Plan - Possible RA - Recent diagnosis, with positive RF - Not on meds, further outpatient management Abnormal CT scan, gastrointestinal tract 09/15/2018 - Present Current Assessment AND Plan As above, recommended MRI pancreas with contrast at some point Leukocytosis 09/15/2018 - Present Current Assessment AND Plan Follow up labs shows elevated WBC Is on steroids Hypertension, essential 09/05/2018 - Present MGUS (monoclonal gammopathy of unknown significance) Unknown - Present Secondary pulmonary arterial hypertension (HCC) 09/05/2018 - Present Medication and Non-Pharmacologic VTE Prophylaxis/Anticoagulants Anticoagulant AND Antiplatelet Medications Start Dose Route Frequency Ordered Stop 09/11/18 1730 rivaroxaban 20 mg tab(s) (XARELTO) (rivaroxaban DVT/PE CONTINUATION of therapy beyond 21 days) 20 mg ORAL DAILY WITH DINNER 09/11/18 1729 -- 09/11/18 1715 activity - mobilize patient (fl,oh) VTE Prophylaxis: VTE prophylaxis appropriate Plan of care discussed with: Patient and RN SIGNATURE: Delphine Martines MD PATIENT NAME: David Briceno DATE: September 19, 2018 TIME: 9:24 AM PAGER/CONTACT #: [phone] CBC Collected: 09/19/2018 Status: F Source: [place] 4:43 AM [facility] OTHER CAMPUS REPOSITORY TYPE CODE TESTS RESULT OUT OF REFERENCE UNITS RANGE LAB WBC 3.70-11.00 k/uL WBC High 13.98 LAB RBC 4.20-6.00 m/uL RBC 4.40 LAB HGB 13.0-17.0 g/dL Hemoglobin 13.0 LAB HCT 39.0-51.0 % Hematocrit 40.4 LAB MCV 80.0-100.0 fL MCV 91.8 LAB MCH 26.0-34.0 pG MCH 29.5 LAB MCHC 30.5-36.0 g/dL MCHC 32.2 LAB RDWCV 11.5-15.0 % RDW-CV 14.9 LAB PLTCT 150-400 k/uL Platelet Count 210 LAB MPV 9.0-12.7 fL MPV 9.9 Performed By: #### CBC #### [facility] [address] [facility] [address] [facility] [phone] THERAPY NT Observed: 09/18/2018 Status: COMPLETED Source: [place] 12:22 PM [facility] OTHER CAMPUS REPOSITORY HNO ID: [id number] Author: Mag Herzog/LMegan Escamilla Service: Occupational Therapy Author Type: Occupational Therapist Type: Therapy (PT/OT/Speech/Resp) Filed: 09/18/2018 12:30 PM Note Text: Occupational Therapy Evaluation SERVICE DATE: 09/18/2018 SERVICE TIME: 900 to 941 ROOM: [place] [address] Recommended Discharge Disposition: Subacute/SNF Recommended Discharge Disposition Comments: Pt is functioning below baseline and requires continued skilled OT services (with close monitoring for safe progression) to increase safety, ease and independence during ADLs, leisure, IADLs and functional mobility for pt's optimal safety and highest level of functioning. Justification For Post Acute Needs: Cognition intact;Good family support;Living the community premorbidly;Good sitting tolerance;Good premorbid functional status;Willing to participate;May not tolerate higher intensity programing Anticipated Discharge Needs: Physical Assist at Home;Supervision at Home Physical Assist at Home for: Cleaning;Laundry;Meals;Medication Management;Stairs;Safety;Self Care;Shopping;Transportation Supervision at Home due to: Other: See Comment (recent hospitalization; SOB; low SPO2 ) OT Recommendations to Nursing: ADL?s in chair;Bedside Commode for Toileting;OOB for meals;Edge of bed ADL?s;Transfer to Chair;With assist of 1 person (encourage energy conservation) Equipment: Commode-Bedside (LRAD, gait belt) OT 6 Clicks Score: 21 Precautions/Activity Restrictions: Fall Risk;Lines/Tubes/Drains Precaution/Activity Restriction Comments: per MD note, target SpO2 >90% ASSESSMENT: Pt presents with impaired functional mobility, ADL performance, balance, strength and functional activity tolerance (requiring Hi-Flow O2, on room air at baseline), impacting his ability to function without assist from caregivers. Pt very pleasant, cooperative and receptive to therapist feedback/recommendations. Requires close monitoring of vitals due to desaturation of SpO2 and noted SOB with minimal activity and instruction/education regarding safe activity dosing. Requires SBA-Minimal Assistance for bed mobility (w/bed modifications), sit <> stand and bed-chair stand pivot transfers and lower body ADLs. Requires skilled therapy to address mobility and self-care limitations as well as progress activities within safe limits, as pt is functioning well below baseline and is motivated to return to PLOF. Patient Disposition at Start of Session: Supine in Bed;Call [place] in Reach Patient Disposition at End of Session: OOB in Chair;Call [place] in Reach;Family Present Tolerated Full Session Occupational Therapy Problem List: Impaired Self Care;Decreased Activity Tolerance;Decreased Strength;Functional Mobility Impairment;Balance Impaired Patient /Caregiver Goals: (To mow my grass again) Goals for Plan of Care: Able to perform HEP with: Modified Independent (for functional BUE strengthening and activ tolerance) Lower Body Dressing with: Supervision Chair Transfer with: Supervision Toilet Transfer with: Supervision Tolerate (minutes of functional activity): 5 (with SpO2 >90%) Functional Activity with: Supervision Demonstrate Competence With Education with: Independent (for use of energy conserv techniques) Progress Toward Goals: Progressing as expected Rehab Potential: Good PLAN: Treatment Frequency (times per week): 2 Current admission Treatment Interventions: Education;Self Care / Home Management;Energy Conservation Training;Strengthening;Functional Mobility Training;Balance Training Plan of Care developed with: Patient TREATMENT INTERVENTIONS: Therapy Diagnosis: Reduced mobility-other;Decreased activities of daily living (ADL);General symptoms and signs-other Interventions Provided: Evaluation;Self Skilled Nursing Management (59597);Therapeutic Exercise (03908) $ Evaluation-Low (64890) Billed Units: 1 unit Therapeutic Exercise (54163) Treatment Minutes: 10 1 unit Skilled Intervention(s): Pt instructed and verbally/visually cued in proper technique for the following BUE seated Exercises, 8-10 repetitions, alternating extremities, use of water bottle for light resistance: Shoulder presses, shoulder flexion, elbow flexion, elbow extension. Pt educated on parameters of safe completion of exercises. Pt verbally cued to take rest breaks between exercises and for proper breathing technique. Pt educated in how to safely grade exercises. Vitals monitored throughout exercises/rest breaks to ensure safe progression/response. Self Skilled Nursing Management (19700) Treatment Minutes: 15 1 unit Skilled Intervention(s): Pt educated in role of OT. Pt educated in importance of out of bed activity (active participation in daily care, sitting in chair for meals and throughout day if asymptomatic) for rehabilitation and to prevent functional decline and other negative effects of immobility. Pt educated and cued in assessing self for dizziness/lightheadedness upon changes in position and to allow time for body to accommodate to changes in position. Pt educated in benefits of use of long handled adaptive equipment for lower body bathing and dressing. Pt instructed in safe technique for bed mobility and scooting to EOB. Pt facilitated with safe technique in stand pivot from bed to bedside chair; facilitated with multiple line mgmt. Pt educated in Energy Conservation Techniques: Sitting versus standing for bathing/dressing, use of assistive device during functional mobility, pacing, frequent rest breaks, prioritizing/planning, placement of items within reach to reduce need to reach/bend. Pt provided with Energy Conservation Techniques handout. Vitals monitored during education and functional transfers throughout session to ensure safe progression of functional activities. Pt educated in importance of use of call button for all needs and to call and wait for nursing/therapist assistance for all out of bed/chair activity. Education in OT POC and discharge recommendation with rationale. RN, PCNA and CM notified of pt status and recommendations. Total Timed Code Treatment Minutes: 25 Total Treatment Time (minutes): 41 FUNCTIONAL G CODE: OT 6 Clicks Score: 21 (12/14/18 0901) Self Care Current Status (G8987): CJ (09/18/18900) Self Care Goal Status (G8988): CI (09/18/18900) Based on clinical assessment and the score on the 6 Clicks Functional Assessment Tool, the G code and corresponding severity modifiers are documented above. SUBJECTIVE: Current Hospital Course: Chart reviewed; Patient is a 73 year old male Reason for Occupational Therapy Consult: Patient presents to the ED on 09/11/18 with SOB, admitted to ICU. Transferred to regular nursing floor on 09/16/18. Referred to OT for safety assessment. Relevant Past Medical History: CAD, COPD, CABG, GERD, RA, DVT 08/2018, pulmonary fibrosis, emphysema, Asbestos exposure, HTN, ND, prostate CA Patient Report: I feel a lot better since I got rid of that blood clot out of my nose this morning. Patient's family entered room towards end of session and remained with patient's permission. Home Environment Patient Lives With: Spouse (Lives in a one level home with ) Assistance Available: 24 Hour Entry To Home: Stairs;With Rail Number Of Stairs Into Home: 10 Number Of Stairs To Bed/Bath: 0 Tub/Shower Type: walk-in shower and tub/shower combo Laundry: completes Equipment Owned: Standard Walker;Wheeled Walker; Shower Chair Prior Functional Level: Within Functional Limits Prior Functional Level Comments: Prior to Pneumonia in April pt was independent; recently pt uses a FWW OBJECTIVE: Cognition/Communication Deficits Responsiveness: Alert;Awake Follows Commands: 3-step Commands Hand Dominance: Right Range of Motion: WFL Strength: Upper Extremity Comments Right Upper Extremity Strength Comments: grossly 4- to 4/5 Left Upper Extremity Strength Comments: grossly 4- to 4/5 CURRENT FUNCTIONAL STATUS: Current Activities of Daily Living Assist Level Feeding Independent (per clinical judgment ) Grooming Verbal Cues Only (for energy conserve, per clinical judgment seated) Bathing Upper Body Verbal Cues Only (for energy conservt per clinical judgment seated) Bathing Lower Body Minimal Assistance (per clinical judgment ) Dressing Upper Body Verbal Cues Only (per clinical judgment for energy conserv, seated) Dressing Lower Body Modified Independent (to don socks at bed level, anticipate Min A pants in standing when donning/doffing) Toileting Modified Independent (use of urinal in supine; anticipate Min A during standing portion of toileting tasks) Functional Mobility Assist Level Rolling Supine to Sit Stand By Assistance (HOB 50 degrees, to L side) Sit to Supine Scooting Stand By Assistance (to EOB) Sit to Stand Minimal Assistance (from bed) Stand to Sit Contact Guard Assistance (to bedside chair) Bed to Chair Contact Guard Assistance Stand Pivot Gait Belt Toilet/Commode Functional Mobility -Gait belt used during functional mobility and transfers for optimal safety Balance: Static Sitting;Dynamic Sitting;Dynamic Standing Static Sitting Balance: Independent Dynamic Sitting Balance: Stand By Assistance (to Supervision) Dynamic Standing Balance: Contact Guard Assistance Activity Tolerance: Standing Activity (noted SOB w/minimal activity, see vitals) Standing Activity: bed-chair transfer Vital Signs Pre Assessment: O2 Equipment, SpO2 Pre SpO2: 93 Pre O2 Equipment: Hi-Flow Nasal Cannula Pre Oxygen Requirement: 50% Intra Assessment 1: SpO2 Intra 1, Heart Rate Intra 1 (at EOB) Intra Heart Rate 1: 118 Intra SpO2 1: 93 Intra Assessment 2: Heart Rate Intra 2, SpO2 Intra 2 (post bed-chair transfer) Intra Heart Rate 2: 105 Intra SpO2 2: 87 (to 89%) Post Assessment: Heart Rate Post, SpO2 Post (89-91% with BUE exercises, seated) Post Heart Rate: 81 Post SpO2: 91 Please see discipline specific clinical documentation flowsheet for complete details for this therapy evaluation/treatment. SIGNATURE: Mag Escamilla OT/[employer] PATIENT NAME: David Briceno DATE: September 18, 2018 TIME: 12:22 PM THERAPY NT Observed: 09/18/2018 Status: COMPLETED Source: [place] 11:58 AM [facility] OTHER CAMPUS REPOSITORY HNO ID: [id number] Author: Aurelia Briseno Service: Physical Therapy Author Type: Commercial Fisher Type: Therapy (PT/OT/Speech/Resp) Filed: 09/18/2018 12:08 PM Note Text: Attestation signed by Alejandra Warren at 09/24/2018 9:56 AM I reviewed and agree with the assessment as documented above. SIGNATURE: Alejandra Warren, PT DATE: September 24, 2018 TIME: 9:56 AM Physical Therapy Treatment SERVICE DATE: 09/18/2018 SERVICE TIME: 1136 to 1100 ROOM: [place] [address] Recommended Discharge Disposition: Subacute/SNF Recommended Discharge Disposition Comments: Pt would benefit from further skilled therapy to address all functional limitations to allow pt to return to [facility]. Anticipate pt will progress to home with home PT with 24 hour assist/supervision. Pt will need to be able to tolerate activity while keeping SPO2 sats above 88%. Justification For Post Acute Needs: Anticipated community discharge;Cognition intact;Good family support;Good premorbid functional status;Living the community premorbidly;Motivated;Medically complex;Willing to participate;Anticipate that patient will require daily (5x/wk) skilled therapy in a post-acute facility setting at the time of acute hospital discharge Anticipated Discharge Needs: Physical Assist at Home;Supervision at Home Physical Assist at Home for: Cleaning;Laundry;Meals;Medication Management;Stairs;Safety;Self Care;Shopping;Transportation Supervision at Home due to: Other: See Comment (recent hospitalization; SOB; low SPO2 ) Recommended Discharge Equipment: To Be Determined PT Recommendations to Nursing: Ambulate with device;To bathroom;In halls;Transfer to/from chair;OOB for Meals;Sit at edge of bed;With assist of 1 person Device: Wheeled Walker PT 6 Clicks Score: 19 Precautions/Activity Restrictions: Lines/Tubes/Drains ASSESSMENT : Patient reports feeling slightly fatigued secondary to just having completed OT however, remains pleasant and highly motivated to participate with PT. Patient successfully able to progress ambulation distance and perform seated exercises. SPO2 monitored and it remained between 88%-94% with all mobility. Patient required frequent, extended rest breaks. Patient noted to be maximally fatigued at end of session. Patient's family present and supportive throughout treatment. At this time, patient would benefit from SNF post acute stay in order to improve activity tolerance, strength, balance and further safety education. Patient Disposition at Start of Session: OOB in Chair;Call [place] in Reach;Family Present Patient Disposition at End of Session: OOB in Chair;Call [place] in Reach;Family Present Tolerance Limited By Fatigue Physical Therapy Problem List: Education Deficit;Safety Deficits;Decreased Activity Tolerance;Decreased Strength;Functional Mobility Impairment;Balance Impaired Patient /Caregiver Goals: Go Home (however, understands need for rehab) Goals for Plan of Care: Able to perform HEP with: Independent Transfer supine to/from sit with: Independent Transfer sit to/from stand with: Supervision Ambulate with: Stand By Assistance (keeping SPO2 sats above 88% ) Distance: 100-150 Device: Wheeled Walker (LRAD ) Ambulate up and down steps with: Stand By Assistance Number of steps: 10 Device: Rail;Hand Held Assist Car transfer with: Supervision Progress Toward Goals: Progressing slower than expected Due To: Hypoxia Rehab Potential: Good PLAN: Treatment Frequency (times per week): 4 Current admission Treatment Interventions: Education;Energy Conservation Training;Strengthening;Functional Mobility Training;Balance Training;Neuromuscular Re-education Plan of Care developed with: Patient TREATMENT INTERVENTIONS: Therapy Diagnosis: Reduced mobility-other;General symptoms and signs-other Interventions Provided: Therapeutic Exercise (49791);Therapeutic Activity (74573);Gait Training (09698) Therapeutic Exercise (86535) Treatment Minutes: 10 1 unit Skilled Intervention(s): Instruction in therapeutic exercise for bilateral AP, heel slides, LAQ, isometric hip abduction/addduction, hip flexion x 10 reps each All exercises were slightly resisted Verbal and tactile cuing provided for correct performance of exercises Cues for diaphragmatic breathing Therapeutic Activity (35204) Treatment Minutes: 4 0 units Skilled Intervention(s): Instruction in sit to stand technique with proper hand placement and body positioning at edge of bed/chair Instruction in stand to sit technique with lower extremities touching chair/bed and reaching back for surface SPO2 monitored throughout session. Frequent cues provided for diaphragmatic breathing. Gait Training (30495) Treatment Minutes: 10 1 unit Skilled Intervention(s): Instruction in sequencing, gait pattern, reciprocating steps Instruction in correction of gait deviations, cues for upright posture, safety, diaphragmatic breathing, relaxation Instruction in use of equipment, cues for sequence and pattern Gait belt in place for safety with all functional mobility. RN aware of patient status. Discussed with patient calling for assistance 100% of the time. Total Timed Code Treatment Minutes: 24 Total Treatment Time (minutes): 24 FUNCTIONAL G CODE: PT 6 Clicks Score: 19 (09/18/18 1100) Mobility: Walking and Moving Around Current Status (G8978): CK (09/13/18 08) Mobility: Walking and Moving Around Goal Status (G8979): CJ (09/13/18 08) Based on clinical assessment and the score on the 6 Clicks Functional Assessment Tool, the G code and corresponding severity modifiers are documented above. SUBJECTIVE: Current Hospital Course: Chart reviewed and no significant medical updates relevant to therapy were noted Reason for Physical Therapy Consult : safety assessment Relevant Past Medical History: CAD, COPD, CABG, GERD, RA, DVT 08/2018, pulmonary fibrosis, emphysema, Asbestos exposure, HTN, ND, prostate CA Patient Report: Patient agreeable and motivated to participate in PT. Patient states, I am a little tired after the other girl but I can still do something. Patient appropriate for PT per Alejandra NEWBY. Home Environment Patient Lives With: Spouse (Lives in a one level home with ) Assistance Available: 24 Hour Entry To Home: Stairs;With Rail Number Of Stairs Into Home: 10 Number Of Stairs To Bed/Bath: 0 Tub/Shower Type: walk-in shower and tub/shower combo Laundry: completes Equipment Owned: Standard Walker;Wheeled Walker Prior Functional Level: Within Functional Limits Prior Functional Level Comments: Prior to Pneumonia in April pt was independent; recently pt uses a FWW OBJECTIVE: CURRENT FUNCTIONAL STATUS: Current Functional Mobility Assist Level Additional Information Rolling Supine to Sit Other: See Comment (patient in bed side chair upon arrival) Sit to Supine Other: See Comment (patient in bed side chair upon arrival) Scooting Independent (forward/retro in chair) Sit to Stand Contact Guard Assistance (with FWW) x2 trials from chair Stand to Sit Contact Guard Assistance (with FWW) Bed to Chair Toilet/Commode Gait Contact Guard Assistance (reciprocating steps) Gait Device: Wheeled Walker Gait Distance (feet): 15' forward, 15' retro Stairs (unsafe for progression) Curb Step Car Transfer General Gait Deviations: Dipti decreased;Step length decreased;Flexed trunk posture;Non-functional gait speed Balance: Static Sitting;Dynamic Sitting;Static Standing;Dynamic Standing Static Sitting Balance: Supervision Dynamic Sitting Balance: Supervision Static Standing Balance: Contact Guard Assistance Dynamic Standing Balance: Contact Guard Assistance -HLM: 6: Walk 10 steps or more Please see discipline specific clinical documentation flowsheet for complete details for this therapy evaluation/treatment. SIGNATURE: Aurelia Briseno PTA PATIENT NAME: David Briceno DATE: September 18, 2018 TIME: 12:03 PM PROGRESS Observed: 09/18/2018 Status: COMPLETED Source: [place] 10:55 AM CLINIC OTHER CAMPUS REPOSITORY HNO ID: [id number] Author: Delphine Martines Service: Hospital Medicine Author Type: Physician Type: Progress Notes Filed: 09/18/2018 10:56 AM Note Text: SERVICE DATE: 09/18/2018 SERVICE TIME: 10:55 AM HOSPITAL MEDICINE PROGRESS NOTE SERVICE DATE: 09/15/2018 SERVICE TIME: 3:00PM Primary Care Physician: Tati Medina MD NIGHT AND WEEKEND COVERAGE: Nights: Please contact pager [phone]. HPI: Mr. Briceno is a 73 yo gentleman who has been transferred to [facility] from [facility] ED with complaints of shortness of breath. His past medical history includes pulmonary fibrosis (previously has followed w/Dr Hein in [place]) - undetermined etiology, emphysema, HTN, GERD, DVT (Aug 2018) - on Xarelto prior to admission, recently diagnosed rheumatoid arthritis (not on immunosuppressive tx), CAD S/P CABG in 2005. He is a former smoker, 40-50 pack years, quit in 1996. ? Patient states that he has had multiple recent admissions to [facility] for pneumonia - once in April, and then most recently in August. Spent several weeks at [facility] in August 2018, during which time he was treated for pneumonia, ?COPD exacerbation, DVTs - started on Xarelto. Patient states he was treated with steroids, antibiotics, bronchodilators. Still had very high FiO2 requirements at discharge. Family reports requiring 15L/min O2 NC with exertion, 6L/min O2 NC at rest. He was discharged to a facility ([facility]) that they were told could accommodate these needs, however upon arrival, it was determined that the facility would be unable to provide this amount of supplemental oxygen, and he was sent back to the emergency department. He reports that has been experiencing shortness of breath, cough that is occasionally productive of brown sputum (occasionally blood tinged). He reports associated left sided pleuritic discomfort. He denies fever/chills, wheeze, abd pain, nausea, vomiting, diarrhea, lower extremity edema, focal neurologic deficits. ? Patient reports that he was following with Dr. Hein (pulmonary - [place]) for progressively worsening shortness of breath. He was told that he has pulmonary fibrosis, and there had been concern that this could be related to rheumatoid arthritis. He was subsequently referred to rheumatology, and diagnosed with RA several weeks ago. No immunosuppressive therapy has been started. He states he was taking Breo and ProAir at home prior to admission. Patient's family states that he did not require any supplemental oxygen prior to his last hospital admission. He was experiencing dyspnea, however he was still fairly active (ie had been doing yard work, etc). He is a former smoker, 40-50 pack years, quit in 1996. 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 // No acute events overnight. Reviewed CT chest and US LL results. Patient and family reassured. No complaints. SUBJECTIVE: Patient feels better today, on high flow again but down to 50. Said he slept last night after midnight until this morning. Less nasal soreness. Expelled a clot from his nose. Feels SOB when moves around, including from bed to chair. He is agreeable to LTAC placement and family is asking about it. No worsening cough or congestion. Denies chest pain or edema. He is tolerating meals, with no N/V or abdominal pain. He is less anxious he says since his breathing is improved. He is having BMs. Pulmonology continues to follow. MEDICATIONS: Reviewed Objective PHYSICAL EXAM: BP 108/62 Pulse 83 Temp (Src) 97.5 (Oral) Resp 20 Ht 5' 9 (1.75m) Wt 182 lb 1.6 oz (82.6kg) SpO2 95% BMI 26.88 kg/(m2). Physical Exam Performed: GENERAL: Alert, no distress, cooperative, sitting up in chair, family at bedside. SKIN: Skin color and turgor normal. Warm, dry. EYES: PERRLA, EOMI OROPHARYNX: Lips, mucosa, and tongue normal. NECK: Supple, soft BACK: No CVAT. LUNGS: Unlabored on high-flow, rales at bases. CARDIAC: Normal S1 and S2; no rubs ABDOMEN: Abdomen soft, non-tender, BS active EXTREMITIES: No LE edema. No calf tenderness. Good capillary refill NEURO: AANDO X3. PULSES: 2+ radial, 2+ DP Lines, Drains, and Airways Line Peripheral 09/11/18 Admission to Hospital Short Left Forearm 20 Gauge 7 days Reviewed lines, drains, AND airways. 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 - Of note, patient has had recent diagnosis of apparent RA. - Per pulmonology, differential diagnosis of this ILD includes IPF, non specific interstitial pneumonitis (NSIP), rheumatoid lung disease, asbestosis. - BNP r/o HF, echocardiogram showed EF 61%, no diastolic dysfunction - CT chest showed multifocal bilateral pulmonary infiltrates on background of severe COPD/emphysema, not deemed pneumonia at this time per pulm/signals analyst; also showed lung nodules - On aerosols, weaning O2 as able, on high flow, on oral prednisone - Per pulmonology, to have further evaluation and treatment options discussed at [facility] Interdisciplinary ILD conference next week - Follow up CT scans from [facility]. - Pulmonology is on consult - LTAC placement pending ILD (interstitial lung disease) ([facility]) 09/14/2018 - Present Current Assessment AND Plan As per above. Pulmonology is on consult DVT (deep venous thrombosis) ([facility]) 08/06/2018 - Present Current Assessment AND Plan - Recent diagnosis of DVT - Diagnosed 08/2018 per patient/family, with bilateral LE involvement per them. - On Xarelto; ?provoked in setting of recent prior hospitalizations - Had LE pain AND paresthesias initially, resolved. - LE DVT US was negative - Continue Xarelto course Arthritis 09/05/2018 - Present Current Assessment AND Plan - Possible RA - Recent diagnosis, with positive RF - Not on meds, further outpatient management Abnormal CT scan, gastrointestinal tract 09/15/2018 - Present Current Assessment AND Plan As above, recommended MRI pancreas with contrast at some point Leukocytosis 09/15/2018 - Present Current Assessment AND Plan Follow up labs shows elevated WBC Is on steroids Hypertension, essential 09/05/2018 - Present MGUS (monoclonal gammopathy of unknown significance) Unknown - Present Secondary pulmonary arterial hypertension (HCC) 09/05/2018 - Present Medication and Non-Pharmacologic VTE Prophylaxis/Anticoagulants Anticoagulant AND Antiplatelet Medications Start Dose Route Frequency Ordered Stop 09/11/18 1730 rivaroxaban 20 mg tab(s) (XARELTO) (rivaroxaban DVT/PE CONTINUATION of therapy beyond 21 days) 20 mg ORAL DAILY WITH DINNER 09/11/18 1729 -- 09/11/18 1715 activity - mobilize patient (ak,oh) VTE Prophylaxis: VTE prophylaxis appropriate Plan of care discussed with: Patient and Family at bedside SIGNATURE: Delphine Martines MD PATIENT NAME: David rBiceno DATE: September 18, 2018 TIME: 10:55 AM PAGER/CONTACT #: [phone] CASE MANAGEM Observed: 09/18/2018 Status: COMPLETED Source: [place] 10:51 AM [facility] OTHER [place] REPOSITORY HNO ID: [id number] Author: Yola Boyd ([place]) Service: Care Management Author Type: Drywall Finishing Foreman Type: Care Mgt Progress Note Filed: 09/18/2018 10:51 AM Note Text: CARE MANAGEMENT PROGRESS NOTE SERVICE DATE: 09/18/2018 SERVICE TIME: 10:51 AM LOS: 7 days TRAFFIC EXPERT met with pt and family at bedside. Updated as to awaiting LTACH precert. CM to continue to follow and support. SIGNATURE: CÉSAR Vick PATIENT NAME: David Briceno DATE: September 18, 2018 TIME: 10:51 AM PAGER/CONTACT #: [phone] CONSULT PROG Observed: 09/18/2018 Status: COMPLETED Source: [place] 10:19 AM [facility] OTHER CAMPUS REPOSITORY HNO ID: [id number] Author: JADE Klein ([place]) Service: Pulmonary Disease Author Type: Physician Religious Activities Director Type: Consult Progress Note Filed: 09/18/2018 10:22 AM Note Text: [facility] Respiratory [place], September 18, 2018: INTERVAL HISTORY: Removed blood clot from nose early this morning. Since then has been less SOB. O2 weaned from 55% to 50% high-flow. SOB with exertion, is working with PT. Denies cough, chest pain, fever, abdominal pain. MAR and allergies reviewed today. PHYSICAL EXAM: Vitals: BP 108/62 Pulse 83 Temp 36.4 ?C (97.5 ?F) (Oral) Resp 20 Ht 175.3 cm (5' 9) Wt 82.6 kg (182 lb 1.6 oz) SpO2 95% BMI 26.89 kg/m? Temp (24hrs), Av.5 ?C (97.7 ?F), Min:36.2 ?C (97.2 ?F), Max:36.8 ?C (98.2 ?F) O2: 50% high-flow O2. General: No acute distress. Cooperative with exam ENT: Sclera white. Hearing grossly intact. No visible nasal discharge or epistaxis. Lips, tongue, buccal mucosa pink and moist. Lungs: Respirations are non-labored. Scattered crackles bilateraly. Cardiovascular: RR. Trace bilateral lower extremity edema. Peripheral pulses intact bilaterally. Extremities: No cyanosis. Warm and well perfused. NEURO: Alert. Awake. Follows commands. Answers questions appropriately. PSYCH: Mood and affect are appropriate for situation. DATA: LABS: Component Latest Ref Rng AND Units 09/12/2018 09/13/2018 09/14/2018 09/15/2018 09/16/2018 09/17/2018 WBC 3.70 - 11.00 k/uL 18.76 (H) 19.57 (H) 18.48 (H) 15.31 (H) 16.53 (H) 15.65 (H) RBC 4.20 - 6.00 m/uL 4.81 4.51 4.58 4.72 4.60 4.26 Hemoglobin 13.0 - 17.0 g/dL 14.3 13.2 13.5 13.9 13.7 12.6 (L) Hematocrit 39.0 - 51.0 % 43.3 40.9 41.6 42.6 41.9 38.4 (L) MCV 80.0 - 100.0 fL 90.0 90.7 90.8 90.3 91.1 90.1 MCH 26.0 - 34.0 pG 29.7 29.3 29.5 29.4 29.8 29.6 MCHC 30.5 - 36.0 g/dL 33.0 32.3 32.5 32.6 32.7 32.8 RDW-CV 11.5 - 15.0 % 14.5 14.5 14.5 14.4 14.4 14.6 Platelet Count 150 - 400 k/uL 197 189 175 176 181 181 MPV 9.0 - 12.7 fL 10.5 10.4 10.2 10.2 10.4 10.1 Neut% % 80.9 Abs Neut (ANC) 1.45 - 7.50 k/uL 15.19 (H) Lymph% % 13.2 Abs Lymph 1.00 - 4.00 k/uL 2.47 [place]% % 5.6 Abs [place] <0.87 k/uL 1.05 (H) Eosin% % 0.1 Abs Eosin <0.46 k/uL <0.03 Baso% % 0.2 Abs Baso <0.11 k/uL 0.04 Glucose 74 - 99 mg/dL 100 (H) 99 87 126 (H) 121 (H) 120 (H) BUN 9 - 24 mg/dL 16 19 15 13 13 14 Creatinine 0.73 - 1.22 mg/dL 0.75 0.70 (L) 0.74 0.59 (L) 0.57 (L) 0.62 (L) Sodium 136 - 144 mmol/L 139 138 138 135 (L) 140 138 Potassium 3.7 - 5.1 mmol/L 3.8 3.4 (L) 3.5 (L) 4.3 4.5 4.2 Chloride 97 - 105 mmol/L 96 (L) 96 (L) 97 96 (L) 100 99 CO2 22 - 30 mmol/L 29 32 (H) 32 (H) 30 30 28 Anion Gap 9 - 18 mmol/L 14 10 9 9 10 11 Calcium 8.5 - 10.2 mg/dL 8.9 8.8 8.7 8.9 8.7 8.4 (L) eGFR- >60 >60 >60 >60 >60 >60 eGFR-All Other Races . >60 >60 >60 >60 >60 >60 Magnesium 1.7 - 2.3 mg/dL 2.3 2.1 2.0 2.2 Phosphorus 2.7 - 4.8 mg/dL 4.1 3.6 3.2 NT Pro BNP <450 pg/mL 58 IMAGING: CT chest non-contrast 09/11/18: RESULT: Limitations:?None. Lines, tubes, and devices:?Sternotomy wires. Lung parenchyma and pleura: Central airways are patent. Multifocal bilateral pulmonary infiltrates, superimposed on a background of moderate to severe pulmonary emphysema. ?No pleural effusion or pneumothorax identified. 5 mm subpleural right middle lobe nodule (image 129). ?Punctate 2 mm medial left apical nodule (image 38). Thoracic inlet, heart, and mediastinum: The heart is not enlarged. ?There is no pericardial effusion. ? Atheromatous changes of the thoracic aorta and coronary arteries. ?Small hiatal hernia. Subcarinal lymph node measures 1.1 cm in short axis, likely reactive. ? Evaluation for hilar adenopathy is limited on this unenhanced study. Bones and soft tissues: ?Degenerative changes of the spine. Upper abdomen: ?A few water density lesions of the liver and hypodense foci which are too small to characterize. ?Focal anterior contour bulge along the pancreatic tail (image 181). ?9 mm right adrenal adenoma which measures 1 Hounsfield unit. ?Atheromatous calcification of the partially imaged abdominal aorta. IMPRESSION/RECOMMEND: 1. 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 Differential diagnosis of this interstitial lung disease would include idiopathic?pulmonary fibrosis (IPF), non specific interstitial pneumonitis (NSIP), Rheumatoid lung disease, asbestosis. - Previously stopped smoking. - Continue supplemental oxygen therapy, targeting spO2 >?90%. - LTAC for for ongoing medical treatment, as well as PT/OT as tolerated indicated to facilitate potential functional improvement. - Nebulized ipratropium/albuterol every 6 hours. - Prednisone 20 mg daily. Any further Rx of ILD to be based on discussion at [facility] Interdisciplinary ILD conference, planning for next week. ? 2. DVT 08/2018. ? - Continue Xarelto. - DVT study 09/15/18 negative. SIGNATURE: Ronda Vieira PA-C DATE: September 18, 2018 TIME: 10:19 AM NURSING PROG Observed: 09/18/2018 Status: COMPLETED Source: [place] 5:09 AM [facility] OTHER CAMPUS REPOSITORY HNO ID: [id number] Author: Smita FrancesRn) Owen Massey RN Service: (none) Author Type: Registered Nurse Type: Nursing Progress Note Filed: 09/18/2018 5:11 AM Note Text: Nursing Progress Note Patient Name: David Briceno Patient Location: [id number] Daily Note: Pt showed this nurse a quarter-size clot from his nose. Pt currently on a hi-flow. Will monitor. Will also notify day shift nurse. This note was completed by: Smita Ricardo RN NUTRITION Observed: 09/17/2018 Status: COMPLETED Source: [place] 2:19 PM CLINIC OTHER CAMPUS REPOSITORY O ID: [id number] Author: Samantha Frances) Shweta Service: Nutrition Therapy Author Type: Registered Dietitian Type: Nutrition Filed: 09/17/2018 2:28 PM Note Text: NUTRITION THERAPY INITIAL ASSESSMENT SERVICE DATE: 09/17/2018 SERVICE TIME: 1350 RECOMMENDED MALNUTRITION DIAGNOSIS: UNABLE TO IDENTIFY MALNUTRITION AT THIS TIME NUTRITION CARE PLAN: Problem, Etiology and Signs/Symptoms: Suboptimal oral intake related to decreased appetite as evidenced by diet recall Intervention: 1. Continue heart healthy diet 2. Trial nutrition supplement bar 3. 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 Rheumatoid Arthritis # Hx DVT Aug 2018 on AC Current Diet Order DIET HEART HEALTHY Order Specific Question: Heart Healthy Answer: 4 GM SODIUM (<200 MG CHOL / LOW SAT FAT) Lines and Drains: Peripheral 09/11/18 Admission to Hospital Short Left Forearm 20 Gauge (Active) Nutritional Intake Prior to Admission: <75% estimated energy needs over the past 1-2 week(s) Decreased appetite past 1-2 weeks, returned to usual since admission GI symptoms: none Nutrition Abdominal Exam: and not assessed ANTHROPOMETRICS Height: 175.3 cm (5' 9) Admission Weight: 81 kg (178 lb 9.2 oz) Current Weight: 83 kg (183 lb) Body mass index is 27.02 kg/m?. overweight Weight has decreased by 8.4 kg over 1 months representing 9.2 % weight change unable to assess weight changes due to fluid shifts Last Wt 09/17/18 : 83 kg (183 lb) 08/12/18 : 91.4 kg (201 lb 8 oz) 05/26/14 : 93 kg (205 lb) 02/02/14 : 92.1 kg (203 lb) 12/13/13 : 92.1 kg (203 lb) 11/29/13 : 90.7 kg (200 lb) 11/22/13 : 92.5 kg (204 lb) 09/27/13 : 90.7 kg (200 lb) 07/03/13 : 91.2 kg (201 lb) 07/01/13 : 91.2 kg (201 lb) 06/26/13 : 92.5 kg (204 lb) 05/28/13 : 92.5 kg (204 lb) 04/26/13 : 91.6 kg (202 lb) 04/09/13 : 90.7 kg (200 lb) 03/04/13 : 89.8 kg (198 lb) 03/04/13 : 89.8 kg (198 lb) 01/28/13 : 88.5 kg (195 lb) 05/02/11 : 90.3 kg (199 lb) Usual Body Weight: 83kg Resting Metabolic Rate: 1560 Estimated kilocalorie needs: 6308-2039 kilocalories determined by 20-25 kcal/kg Estimated protein needs: 83-108 grams determined by 1.0-1.3 g/kg Current weight Estimated fluid needs: 8609-1395 milliliters based on 1 mL per kcal NUTRITION FOCUSED PHYSICAL EXAM: Unable to perform exam due to patient whole body edema, anasarca, will re-attempt during reassessment. Temperature Max in 24 hours: Temp (24hrs), Av.5 ?C (97.7 ?F), Min:36.3 ?C (97.3 ?F), Max:36.6 ?C (97.9 ?F) BP 122/68 Pulse 86 Temp 36.6 ?C (97.9 ?F) (Oral) Resp 18 Ht 175.3 cm (5' 9) Wt 83 kg (183 lb) SpO2 96% BMI 27.02 kg/m? Recent Labs 09/17/18 0527 09/16/18 0526 GLUC 120* 121* BUN 14 13 CREAT 0.62* 0.57* NA 138 140 K 4.2 4.5 CHLOR 99 100 CO2 28 30 HB 12.6* 13.7 HCT 38.4* 41.9 WBC 15.65* 16.53* MG -- 2.2 Potential Signs of Inflammation: leukocytosis and hyperglycemia ALLERGIES Allergen Reactions - Aceon [Perindopril * Other: See Comments Allergy testing - Augmentin [Amoxicil* Intolerance - Colchicine Swelling - Hydrocodone Mental Status Change sweating - Iv Contrast [Iodine] Swelling - Naproxen Other: See Comments Blood pressure went up, sweaty - Prednisone Other: See Comments BP goes up, weak, dizzy Current Facility-Administered Medications: acetaminophen 650 mg tab(s) (TYLENOL) 650 mg ORAL q 6 H PRN albuterol 2.5 mg /3 mL (0.083 %) 2.5 mg (PROVENTIL) 2.5 mg INHALATION q 6 H PRN amLODIPine 10 mg tab(s) (NORVASC) 10 mg ORAL DAILY atorvastatin 20 mg tab(s) (LIPITOR) 20 mg ORAL DAILY budesonide 0.5 mg/2 mL 0.5 mg (PULMICORT) 0.5 mg INHALATION BID docusate sodium 100 mg cap(s) (COLACE) 100 mg ORAL BID hydrOXYzine pamoate 25 mg cap(s) (VISTARIL) 25 mg ORAL HS PRN ipratropium-albuterol 3 mL nebulizer solution (DUONEB) 3 mL INHALATION QID magnesium hydroxide 400 mg/5 mL 30 mL (MOM) 30 mL ORAL BID PRN metoprolol tartrate (short acting) 25 mg tab(s) (LOPRESSOR) 25 mg ORAL q 12 H nitroglycerin sublingual 0.4 mg tab(s) (NITROQUICK) 0.4 mg SUBLINGUAL q 5 MIN PRN ondansetron orally disintegrating 4 mg tab(s) (ZOFRAN ODT) 4 mg ORAL q 6 H PRN Or ondansetron (PF) 4 mg injection (ZOFRAN) 4 mg INTRAVENOUS q [address] 20 mg tab(s) (PROTONIX) 20 mg ORAL DAILY (6 AM) predniSONE 40 mg tab(s) (DELTASONE) 40 mg ORAL BID rivaroxaban 20 mg tab(s) (XARELTO) 20 mg ORAL DAILY wDINNER sodium chloride 0.65 % 2 Winder (AYR, OCEAN) 2 Winder EACH NOSTRIL PRN therapeutic multivitamin with iron (THERAGRAN-M) 1 tablet ORAL DAILY Date 09/16/18 07 - 09/17/18 0659 09/17/18 07 - 09/18/18 0659 Shift 0638-4964 4636-5962 0359-1487 24 Hour Total 3756-4981 2658-8739 1907-7972 24 Hour Total I N T A K E PO 914 929 1686 660 660 PO 536 308 6310 660 660 Shift Total 238 785 1973 660 660 O U T P U T Urine 200 200 400 800 300 300 Void (ml) 200 200 400 800 300 300 Urine Not Saved. 2 x 2 x # of BMs Number of BMs 1 x 1 x Shift Total 200 200 400 800 300 300 Weight (kg) 82.5 82.5 83 83 83 83 83 83 Pressure Injury 09/16/18 0420 Ear - Right (Active) Stage Injury 1 09/16/2018 8:00 PM Tourist Home Keeper Related Pressure Injury Yes 09/16/2018 3:00 PM Dressing Status Clean, Dry AND Intact 09/16/2018 8:00 PM Wound Surface Color [place] 09/16/2018 3:00 PM Surrounding Skin Intact 09/16/2018 3:00 PM Number of days: 1 Pressure Injury 09/16/18 1516 Other: See Comment (Active) Stage Injury 2 09/16/2018 8:00 PM Tourist Home Keeper Related Pressure Injury No 09/16/2018 3:00 PM Dressing Status Clean, Dry AND Intact 09/16/2018 8:00 PM Frequency of Dressing Change As Needed 09/16/2018 3:00 PM Dressing/Treatment Type Foam-Adhesive 09/16/2018 3:00 PM Drainage Description None 09/16/2018 3:00 PM Drainage Amount None 09/16/2018 3:00 PM Odor No 09/16/2018 3:00 PM Wound Surface Color Red 09/16/2018 3:00 PM Surrounding Skin Intact 09/16/2018 3:00 PM Number of days: 0 MNT Billing Type: Initial Assess/15 min 4 units SIGNATURE: Samantha Rock RD PATIENT NAME: David Briceno DATE: September 17, 2018 TIME: 2:20 PM PROGRESS Observed: 09/17/2018 Status: COMPLETED Source: [place] 11:43 AM CLINIC OTHER CAMPUS REPOSITORY O ID: [id number] Author: Delphine Martines Service: Hospital Medicine Author Type: Physician Type: Progress Notes Filed: 09/17/2018 11:44 AM Note Text: SERVICE DATE: 09/17/2018 SERVICE TIME: 11:43 AM HOSPITAL MEDICINE PROGRESS NOTE Primary Care Physician: Tati Medina MD NIGHT AND WEEKEND COVERAGE: Nights: Please contact pager [phone]. HPI: Mr. Briceno is a 73 yo gentleman who has been transferred to [facility] from [facility] ED with complaints of shortness of breath. His past medical history includes pulmonary fibrosis (previously has followed w/Dr Hein in [place]) - undetermined etiology, emphysema, HTN, GERD, DVT (Aug 2018) - on Xarelto prior to admission, recently diagnosed rheumatoid arthritis (not on immunosuppressive tx), CAD S/P CABG in 2005. He is a former smoker, 40-50 pack years, quit in 1996. ? Patient states that he has had multiple recent admissions to [facility] for pneumonia - once in April, and then most recently in August. Spent several weeks at [facility] in August 2018, during which time he was treated for pneumonia, ?COPD exacerbation, DVTs - started on Xarelto. Patient states he was treated with steroids, antibiotics, bronchodilators. Still had very high FiO2 requirements at discharge. Family reports requiring 15L/min O2 NC with exertion, 6L/min O2 NC at rest. He was discharged to a facility ([facility]) that they were told could accommodate these needs, however upon arrival, it was determined that the facility would be unable to provide this amount of supplemental oxygen, and he was sent back to the emergency department. He reports that has been experiencing shortness of breath, cough that is occasionally productive of brown sputum (occasionally blood tinged). He reports associated left sided pleuritic discomfort. He denies fever/chills, wheeze, abd pain, nausea, vomiting, diarrhea, lower extremity edema, focal neurologic deficits. ? Patient reports that he was following with Dr. Hein (pulmonary - [place]) for progressively worsening shortness of breath. He was told that he has pulmonary fibrosis, and there had been concern that this could be related to rheumatoid arthritis. He was subsequently referred to rheumatology, and diagnosed with RA several weeks ago. No immunosuppressive therapy has been started. He states he was taking Breo and ProAir at home prior to admission. Patient's family states that he did not require any supplemental oxygen prior to his last hospital admission. He was experiencing dyspnea, however he was still fairly active (ie had been doing yard work, etc). He is a former smoker, 40-50 pack years, quit in 1996. 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 // No acute events overnight. Reviewed CT chest and US LL results. Patient and family reassured. No complaints. SUBJECTIVE: Patient feels better today, on high flow. Said he slept last night. Less nasal soreness. Feels SOB when moves around. He is agreeable to LTAC placement. No worsening cough or congestion. Denies chest pain or increased edema. He is tolerating meals, with no N/V or abdominal pain. He is less anxious he says since his breathing is improved. He is having BMs. Pulmonology is following. MEDICATIONS: Reviewed Objective PHYSICAL EXAM: BP 102/70 Pulse 85 Temp (Src) 97.7 (Oral) Resp 20 Ht 5' 9 (1.75m) Wt 183 lb (83.0kg) SpO2 93% BMI 27.01 kg/(m2). Physical Exam Performed: GENERAL: Alert, no distress, cooperative, sitting up in bed, family arrived at bedside. SKIN: Skin color, texture, turgor normal HEAD/SINUSES: No significant findings EYES: PERRLA, EOMI OROPHARYNX: Lips, mucosa, and tongue normal. NECK: Supple, soft BACK: No CVAT. LUNGS: Unlabored on high-flow, rales at bases. CARDIAC: Normal S1 and S2; no gallops ABDOMEN: Abdomen soft, non-tender, BS active EXTREMITIES: No increased LE edema. Good capillary refill NEURO: AANDO X3. 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 - Of note, patient has had recent diagnosis of apparent RA. - Per pulmonology, differential diagnosis of this ILD includes IPF, non specific interstitial pneumonitis (NSIP), rheumatoid lung disease, asbestosis. - BNP r/o HF, echocardiogram showed EF 61%, no diastolic dysfunction - CT chest showed multifocal bilateral pulmonary infiltrates on background of severe COPD/emphysema, not deemed pneumonia at this time per pulm/signals analyst; also showed lung nodules - On aerosols, weaning O2 as able, on oral prednisone - Per pulmonology, to have further evaluation and treatment options discussed at [facility] Interdisciplinary ILD conference next week - Follow up CT scans from [facility]. - Pulmonology is on consult ILD (interstitial lung disease) ([facility]) 09/14/2018 - Present Current Assessment AND Plan As per above. Pulmonology is on consult DVT (deep venous thrombosis) ([facility]) 08/06/2018 - Present Current Assessment AND Plan - Recent diagnosis of DVT - Diagnosed 08/2018 per patient/family, with bilateral LE involvement per them. - On Xarelto; ?provoked in setting of recent prior hospitalizations - Had LE pain AND paresthesias initially, improved. - LE DVT US was negative - Continue Xarelto course Arthritis 09/05/2018 - Present Current Assessment AND Plan - Possible RA - Recent diagnosis, with positive RF - Not on meds, further outpatient management Abnormal CT scan, gastrointestinal tract 09/15/2018 - Present Current Assessment AND Plan As above, recommended MRI pancreas with contrast at some point Leukocytosis 09/15/2018 - Present Current Assessment AND Plan Follow up labs shows elevated WBC Is on steroids Hypertension, essential 09/05/2018 - Present MGUS (monoclonal gammopathy of unknown significance) Unknown - Present Secondary pulmonary arterial hypertension (HCC) 09/05/2018 - Present Medication and Non-Pharmacologic VTE Prophylaxis/Anticoagulants Anticoagulant AND Antiplatelet Medications Start Dose Route Frequency Ordered Stop 09/11/18 1730 rivaroxaban 20 mg tab(s) (XARELTO) (rivaroxaban DVT/PE CONTINUATION of therapy beyond 21 days) 20 mg ORAL DAILY WITH DINNER 09/11/18 1729 -- VTE Prophylaxis: VTE prophylaxis appropriate Plan of care discussed with: Patient, Family at bedside SIGNATURE: Delphine Martines MD PATIENT NAME: David Briceno DATE: September 17, 2018 TIME: 11:43 AM PAGER/CONTACT #: [id number] THERAPY NT Observed: 09/17/2018 Status: COMPLETED Source: [place] 11:39 AM [facility] OTHER [place] REPOSITORY O ID: [id number] Author: Aurelia Briseno Service: Physical Therapy Author Type: Commercial Fisher Type: Therapy (PT/OT/Speech/Resp) Filed: 09/17/2018 11:52 AM Note Text: Attestation signed by Alejandra FrancesPt) Kelvin at 09/22/2018 9:53 AM I reviewed and agree with the assessment as documented above. SIGNATURE: Alejandra Warren, PT DATE: September 22, 2018 TIME: 9:53 AM Physical Therapy Treatment SERVICE DATE: 09/17/2018 SERVICE TIME: 1100 to 1130 ROOM: [place] [address] Recommended Discharge Disposition: Subacute/SNF (vs Home PT (anticipate pt will progress to home) ) Recommended Discharge Disposition Comments: Pt would benefit from further skilled therapy to address all functional limitations to allow pt to return to OF. Anticipate pt will progress to home with home PT with 24 hour assist/supervision. Pt will need to be able to tolerate activity while keeping SPO2 sats above 88%. Justification For Post Acute Needs: Anticipated community discharge;Cognition intact;Good family support;Good premorbid functional status;Living the community premorbidly;Motivated;Medically complex;Willing to participate;Anticipate that patient will require daily (5x/wk) skilled therapy in a post-acute facility setting at the time of acute hospital discharge Anticipated Discharge Needs: Physical Assist at Home;Supervision at Home Physical Assist at Home for: Cleaning;Laundry;Meals;Medication Management;Stairs;Safety;Self Care;Shopping;Transportation Supervision at Home due to: Other: See Comment (recent hospitalization; SOB; low SPO2 ) Recommended Discharge Equipment: To Be Determined PT Recommendations to Nursing: Ambulate with device;To bathroom;In halls;Transfer to/from chair;OOB for Meals;Sit at edge of bed;With assist of 1 person Device: Wheeled Walker PT 6 Clicks Score: 19 Precautions/Activity Restrictions: Lines/Tubes/Drains ASSESSMENT : Patient pleasant and highly motivated to participate with PT. Patient successfully able to progress ambulation distance and perform seated resisted exercises. Patient requires maximal amount of time to complete al mobility secondary to hypoxia and fatigue. Patient easily anxious with mobility, requires frequent cues for relaxation and diaphragmatic breathing. Patients family present and supportive throughout treatment. Patient demonstrates good safety awareness and appropriately follows therapist cues. At this time, patient would benefit from SNF post acute stay in order to improve activity tolerance, strength, balance and further safety education. Patient Disposition at Start of Session: Supine in Bed;Call [place] in Reach;Family Present Patient Disposition at End of Session: OOB in Chair;Call [place] in Reach;Family Present Tolerance Limited By Fatigue;Physiologic Response (easily hypoxic) Physical Therapy Problem List: Education Deficit;Safety Deficits;Decreased Activity Tolerance;Decreased Strength;Functional Mobility Impairment;Balance Impaired Patient /Caregiver Goals: Go Home (however, understands need for rehab) Goals for Plan of Care: Able to perform HEP with: Independent Transfer supine to/from sit with: Independent Transfer sit to/from stand with: Supervision Ambulate with: Stand By Assistance (keeping SPO2 sats above 88% ) Distance: 100-150 Device: Wheeled Walker (LRAD ) Ambulate up and down steps with: Stand By Assistance Number of steps: 10 Device: Rail;Hand Held Assist Car transfer with: Supervision Progress Toward Goals: Progressing slower than expected Due To: Hypoxia Rehab Potential: Good PLAN: Treatment Frequency (times per week): 4 Current admission Treatment Interventions: Education;Energy Conservation Training;Strengthening;Functional Mobility Training;Balance Training;Neuromuscular Re-education Plan of Care developed with: Patient TREATMENT INTERVENTIONS: Therapy Diagnosis: Reduced mobility-other;General symptoms and signs-other Interventions Provided: Therapeutic Exercise (32999);Therapeutic Activity (96977);Gait Training (72705) Therapeutic Exercise (41781) Treatment Minutes: 10 1 unit Skilled Intervention(s): Instruction in therapeutic exercise for bilateral AP, heel slides, LAQ, slightly resisted isometric hip abduction/addduction, hip flexion x 10 reps each All exercises were slightly resisted Verbal and tactile cuing provided for correct performance of exercises Cues for diaphragmatic breathing Therapeutic Activity (78736) Treatment Minutes: 10 0 units Skilled Intervention(s): Instructed patient in supine to sit pushing with upper extremities to sit up Instruction in sit to stand technique with proper hand placement and body positioning at edge of bed/chair Instruction in stand to sit technique with lower extremities touching chair/bed and reaching back for surface Extended time to required to monitor vitals. Extended rest breaks frequently throughout session. Gait Training (02725) Treatment Minutes: 10 1 unit Skilled Intervention(s): Instruction in sequencing, gait pattern, reciprocating steps Instruction in correction of gait deviations, cues for upright posture, safety, diaphragmatic breathing, safe pacing Instruction in use of equipment, cues for sequence and pattern Gait belt in place for safety with all functional mobility. RN aware of patient status. Discussed with patient sitting up for no longer than 1 hr and calling for assistance 100% of the time. Total Timed Code Treatment Minutes: 30 Total Treatment Time (minutes): 30 FUNCTIONAL G CODE: PT 6 Clicks Score: 19 (09/17/18 1130) Mobility: Walking and Moving Around Current Status (G8978): CK (09/13/18 0805) Mobility: Walking and Moving Around Goal Status (G8979): CJ (09/13/18 0805) Based on clinical assessment and the score on the 6 Clicks Functional Assessment Tool, the G code and corresponding severity modifiers are documented above. SUBJECTIVE: Current Hospital Course: Chart reviewed and no significant medical updates relevant to therapy were noted Reason for Physical Therapy Consult : safety assessment Relevant Past Medical History: CAD, COPD, CABG, GERD, RA, DVT 08/2018, pulmonary fibrosis, emphysema, Asbestos exposure, HTN, ND, prostate CA Patient Report: Patient agreeable and motivated to participate in PT. Patient states, I makes me nervous when I cannot catch my breath Patient appropriate for PT per RNKang. Home Environment Patient Lives With: Spouse (Lives in a one level home with ) Assistance Available: 24 Hour Entry To Home: Stairs;With Rail Number Of Stairs Into Home: 10 Number Of Stairs To Bed/Bath: 0 Tub/Shower Type: walk-in shower and tub/shower combo Laundry: completes Equipment Owned: Standard Walker;Wheeled Walker Prior Functional Level: Within Functional Limits Prior Functional Level Comments: Prior to Pneumonia in April pt was independent; recently pt uses a FWW OBJECTIVE: CURRENT FUNCTIONAL STATUS: Current Functional Mobility Assist Level Additional Information Rolling Supine to Sit Stand By Assistance (HOB 30 degrees, no use of rails) Sit to Supine Other: See Comment (patient in bed side chair at end of treatment) Scooting Supervision (forward to EOB) Sit to Stand Stand By Assistance (with FWW) x1 trial from EOB Stand to Sit Stand By Assistance (with FWW) Bed to Chair Toilet/Commode Gait Contact Guard Assistance (reciprocating steps) Gait Device: Wheeled Walker Gait Distance (feet): 8'x1 Stairs (unsafe for progression) Curb Step Car Transfer General Gait Deviations: Dipti decreased;Step length decreased;Flexed trunk posture;Shuffling Gait;Non-functional gait speed Balance: Static Sitting;Dynamic Sitting;Static Standing;Dynamic Standing Static Sitting Balance: Supervision Dynamic Sitting Balance: Supervision Static Standing Balance: Contact Guard Assistance Dynamic Standing Balance: Contact Guard Assistance JH-HLM: 5: Standing (1 or more minutes) Please see discipline specific clinical documentation flowsheet for complete details for this therapy evaluation/treatment. SIGNATURE: Aurelia Briseno PTA PATIENT NAME: David Briceno DATE: September 17, 2018 TIME: 11:39 AM CONSULT PROG Observed: 09/17/2018 Status: COMPLETED Source: [place] 10:40 AM CLINIC OTHER CAMPUS REPOSITORY HNO ID: [id number] Author: Rosy Barker Service: Pulmonary Disease Author Type: Physician Type: Consult Progress Note Filed: 09/17/2018 12:03 PM Note Text: [facility] [place], September 17, 2018: INTERVAL HISTORY: Placed back on high-flow. Remains SOB. No cough, fever, chest pain. Anticipating discharge to LTACH. MAR and allergies reviewed today. PHYSICAL EXAM: Vitals: BP 102/70 Pulse 85 Temp 36.5 ?C (97.7 ?F) (Oral) Resp 20 Ht 175.3 cm (5' 9) Wt 83 kg (183 lb) SpO2 93% BMI 27.02 kg/m? Temp (24hrs), Av.4 ?C (97.6 ?F), Min:36.3 ?C (97.3 ?F), Max:36.6 ?C (97.9 ?F) O2: 55% high-flow General: No acute distress. Cooperative with exam ENT: Sclera white. Hearing grossly intact. No visible nasal discharge or epistaxis. Lips, tongue, buccal mucosa pink and moist. Lungs: Diminished bilaterally. Cardiovascular: Regular rate. No lower extremity edema. Peripheral pulses intact bilaterally. Extremities: No cyanosis. Warm and well perfused. NEURO: Alert. Awake. Follows commands. Answers questions appropriately. PSYCH: Mood and affect are appropriate for situation. DATA: LABS: Component 09/12/2018 09/13/2018 09/14/2018 09/15/2018 09/16/2018 09/17/2018 WBC 18.76 (H) 19.57 (H) 18.48 (H) 15.31 (H) 16.53 (H) 15.65 (H) RBC 4.81 4.51 4.58 4.72 4.60 4.26 Hemoglobin 14.3 13.2 13.5 13.9 13.7 12.6 (L) Hematocrit 43.3 40.9 41.6 42.6 41.9 38.4 (L) Platelet Count 197 189 175 176 181 181 Glucose 100 (H) 99 87 126 (H) 121 (H) 120 (H) BUN 16 19 15 13 13 14 Creatinine 0.75 0.70 (L) 0.74 0.59 (L) 0.57 (L) 0.62 (L) Sodium 139 138 138 135 (L) 140 138 Potassium 3.8 3.4 (L) 3.5 (L) 4.3 4.5 4.2 Chloride 96 (L) 96 (L) 97 96 (L) 100 99 CO2 29 32 (H) 32 (H) 30 30 28 Anion Gap 14 10 9 9 10 11 Calcium 8.9 8.8 8.7 8.9 8.7 8.4 (L) eGFR-All Other Races >60 >60 >60 >60 >60 >60 Procalcitonin <0.06 Magnesium 2.3 2.1 2.0 2.2 Phosphorus 4.1 3.6 3.2 NT Pro BNP 58 IMAGING: DVT LE US 09/15/18: IMPRESSION: No deep venous thrombosis is found in either thigh. CT chest non-contrast 09/11/18: IMPRESSION: Multifocal bilateral pulmonary infiltrates, superimposed on a background of moderate to severe pulmonary emphysema. ?Findings likely represent multifocal pneumonia. Recommend follow-up to resolution. A few lung nodules measuring up to 5 mm. ?Incidental Finding: ?No follow-up imaging for this incidentally detected lung nodule is recommended. If there are risk factors for lung malignancy or if the nodule has suspicious features (eg spiculated or upper lobe location), a follow-up chest CT exam could be obtained in 12 months. Small area of focal contour bulge along the anterior pancreatic tail. ? Unclear whether this represents a small focus of exophytic pancreatic tissue or a small mass. ?Nonemergent MRI pancreas with contrast is recommended if clinically feasible. ECHO 09/14/18: CONCLUSIONS: - Technically difficult exam due to body habitus and on biPap during echo, respiratory interference, and bedside in ICU. - Exam indication: Suspected pulmonary hypertension - The left ventricle is normal in size. Left ventricular systolic function is normal. EF = 61 ? 5% (2D biplane) Normal left ventricular diastolic function. - The right ventricle is normal in size. Right ventricular systolic function is normal. - Limited subcostal views due to poor acoustic window. Hepatic vein not visualized. - The patient has not had a prior CC echocardiographic exam for comparison. IMPRESSION/RECOMMEND: 1. 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 Differential diagnosis of this interstitial lung disease would include idiopathic?pulmonary fibrosis (IPF), non specific interstitial pneumonitis (NSIP), Rheumatoid lung disease, asbestosis. - Previously stopped smoking. - Continue supplemental oxygen therapy, targeting spO2 >?90%. - LTAC for for ongoing medical treatment, as well as PT/OT as tolerated indicated to facilitate potential functional improvement. - Nebulized ipratropium/albuterol every 6 hours. - Prednisone 20 mg daily. Any further Rx of ILD to be based on discussion at [facility] Interdisciplinary ILD conference, planning for next week. ? 2. DVT 08/2018. ? - Continue Xarelto. - DVT study 09/15/18 negative. SIGNATURE: Ronda Vieira PA-C DATE: September 17, 2018 TIME: 10:40 AM Attending Note I have personally performed a face to face assessment of the patient and have reviewed the PA/METAL HANGER note. My fan findings include: History is as recorded. Exam is as recorded. Assessment/Plan are as edited. Other additions or changes: As edited. Signature: Rosy Barker MD Date: 09/17/2018 Time: 12:03 PM Rosy Barker MD, [facility] Medical Office [place] [address] P: [phone] F: [phone] NURSING PROG Observed: 09/17/2018 Status: COMPLETED Source: [place] 8:38 AM [facility] REPOSITORY HNO ID: [id number] Author: Kang (Rn) ALEJO Dueñas Service: Nursing Author Type: Registered Nurse Type: Nursing Progress Note Filed: 09/17/2018 9:00 AM Note Text: Nursing Progress Note Patient Name: David Briceno Patient Location: [place] [id number] Daily Note: Pt on hiflow, this is NEW, never used o2 prior. A/ox3, lungs have slight insp wheezing heard otherwise fairly clear. bsx4 Pt states constipated more often, on stool softener. No edema noted. Call light in reach. This note was completed by: Kang Dueñas RN CASE MANAGEM Observed: 09/17/2018 Status: COMPLETED Source: [place] 8:37 AM [facility] REPOSITORY HNO ID: [id number] Author: Hanna (Rn) ALEJO Rider Service: Care Management Author Type: Registered Nurse Type: Care Mgt Progress Note Filed: 09/17/2018 9:05 AM Note Text: CARE MANAGEMENT PROGRESS NOTE SERVICE DATE: 09/17/2018 SERVICE TIME: 8:37 AM LOS: 6 days FREEDOM OF CHOICE GIVEN: Yes a few days ago Needs Prior to Discharge: To Be Determined;Accepting Facility;Precertification;Bed Availability called sonDavid, and gave information that patient was accepted at both [facility] and [facility] in [place]. He wants to pursue LTACH first because of being passed around like a Pin Ball this last go around. He will discuss with mother and get back with this CM. He states he understands that Insurance must approve first. 8:45 AM Son, called back and after talking to patient's , they want to pursue [facility] LTACH. Updates sent via ECIN with request to start Precert. 9:00 AM - Gricelda from [facility]. CM introduced her to patient who states he is leaving the decision on facilities to His son, , to make. Case management to follow. SIGNATURE: SAMMI FisherN, RN, ACM-RN PATIENT NAME: David Briceno DATE: September 17, 2018 Pager: [phone] CBC Collected: 09/17/2018 Status: F Source: [place] 5:27 AM CLINIC OTHER CAMPUS REPOSITORY TYPE CODE TESTS RESULT OUT OF REFERENCE UNITS RANGE LAB WBC 3.70-11.00 k/uL WBC High 15.65 LAB RBC 4.20-6.00 m/uL RBC 4.26 LAB HGB 13.0-17.0 g/dL Low Hemoglobin 12.6 LAB HCT 39.0-51.0 % Low Hematocrit 38.4 LAB MCV 80.0-100.0 fL MCV 90.1 LAB MCH 26.0-34.0 pG MCH 29.6 LAB MCHC 30.5-36.0 g/dL MCHC 32.8 LAB RDWCV 11.5-15.0 % RDW-CV 14.6 LAB PLTCT 150-400 k/uL Platelet Count 181 LAB MPV 9.0-12.7 fL MPV 10.1 Performed By: #### CBC, BMP #### [facility] [address] [facility] [phone] BASIC METABOLIC PANL Collected: 09/17/2018 Status: F Source: [place] 5:27 AM [facility] OTHER CAMPUS REPOSITORY TYPE CODE TESTS RESULT OUT OF REFERENCE UNITS RANGE LAB GLU 74-99 mg/dL High Glucose 120 Result Comment: The [place] Diabetes Association (ADA) provides guidance for cutoff values for fasting glucose and random glucose. The ADA defines fasting as no caloric intake for at least 8 hours. Fas ting plasma glucose results between 100 to 125 mg/dL indicate increased risk for diabetes (prediabetes). Fasting plasma glucose results greater than or equal to 126 mg/dL meet the criteria for diagnosis of diabetes. In the absence of unequivocal hyperglycemia, results should be confirmed by repeat testing. In a patient with classic symptoms of hyperglycemia or hyperglycemic crisis, random plasma glucose results greater than or equal to 200 mg/dL meet the criteria for diagnosis of diabetes. Reference: Standards of Medical Care in Diabetes 2016, [place] Diabetes Association. Diabetes Care. 2016.39(Suppl 1). LAB BUN 9-24 mg/dL BUN 14 LAB CRET 0.73-1.22 mg/dL Creatinine Low 0.62 LAB NA 136-144 mmol/L Sodium 138 LAB K 3.7-5.1 mmol/L Potassium 4.2 LAB CL 97-105 mmol/L Chloride 99 LAB CO2 22-30 mmol/L CO2 28 LAB AGAP 9-18 mmol/L Anion Gap 11 LAB CA 8.5-10.2 mg/dL Calcium, Low Total 8.4 LAB GFRAA eGFR- Amer. >60 LAB GFRNAA . eGFR-All Other Races >60 Result Comment: eGFR (Estimated GFR) Units of measure: mL/min/1.73 meters squared eGFR is derived from the reexpressed MDRD Study equation using the following parameters: serum creatinine, age, gender and race. The creatinine assay has been calibrated to be traceable to IDMS. An eGFR <60 mL/min/1.73m2 for >3 months is consistent with chronic kidney disease. Refer to KDOQI guidelines for clinical interpretation. In patients with unstable renal function, e.g. those with acute kidney injury, the eGFR may not accurately reflect actual GFR. Performed By: #### CBC, BMP #### [facility] [address] [facility] [phone] CNCO Observed: 09/17/2018 Status: COMPLETED Source: [place] 12:00 AM CLINIC OTHER CAMPUS REPOSITORY Letter Text David Briceno Rosy Barker MD, [facility] [place] September 17, 2018 Tati Medina MD [address] [place] [address] RE: David Briceno : 1945 CC#: [id number] Medina, It was my pleasure to evaluate your patient in the [facility] [place]. I have enclosed a copy of my most recent hospital consult note is included for your review and records. If you have any questions regarding this report, please feel free to contact me. Sincerely, Rosy Barker MD, [facility] Medical Office [facility] [place] [address] [place] [address] P: [phone] F: [phone] Enclosure Letter Text October 02, 2018 David Wright Kaity [address] [facility] [address] Dear Mr. Briceno, The nurses and staff of [facility] hope this letter finds you feeling well and progressing in your recovery. Our staff would like to thank you for trusting and choosing us for your health care needs. It was an honor for us to provide your nursing care. We know that placing our Patients First and maintaining a culture of continuous improvement each and every day, are essential to the success of our organization. I hope your stay with us has been positive. We want to hear from you. If you have any comments, questions or concerns about your hospital stay, please feel free to contact me, Haleigh Thakur RN ([phone]) or email me at, [email or web address] Additionally, you will receive a survey in the mail asking you to rate the care you received while in the hospital. Please take the time to complete and send back the survey, as it is essential to our continued success. I personally review all the results and would appreciate your feedback. Thank you in advance for your participation and thank you for choosing the [facility] for your health needs. Sincerely, Nurse Cardroom Manager: Haleigh Thakur RN ([phone]) [facility] Unit: [address] [place] [address] PROGRESS Observed: 09/16/2018 Status: COMPLETED Source: [place] 11:52 AM CLINIC OTHER CAMPUS REPOSITORY HNO ID: [id number] Author: Delphine Martines Service: Hospital Medicine Author Type: Physician Type: Progress Notes Filed: 09/16/2018 11:54 AM Note Text: SERVICE DATE: 09/16/2018 SERVICE TIME: 11:52 AM HOSPITAL MEDICINE PROGRESS NOTE SERVICE DATE: 09/15/2018 SERVICE TIME: 3:00PM Primary Care Physician: Tati Medina MD NIGHT AND WEEKEND COVERAGE: Nights: Please contact pager [phone]. HPI: Mr. Briceno is a 73 yo gentleman who has been transferred to [place] ICU from [facility] ED with complaints of shortness of breath. His past medical history includes pulmonary fibrosis (previously has followed w/Dr Hein in [place]) - undetermined etiology, emphysema, HTN, GERD, DVT (Aug 2018) - on Xarelto prior to admission, recently diagnosed rheumatoid arthritis (not on immunosuppressive tx), CAD S/P CABG in 2005. He is a former smoker, 40-50 pack years, quit in 1996. ? Patient states that he has had multiple recent admissions to [facility] for pneumonia - once in April, and then most recently in August. Spent several weeks at [facility] in August 2018, during which time he was treated for pneumonia, ?COPD exacerbation, DVTs - started on Xarelto. Patient states he was treated with steroids, antibiotics, bronchodilators. Still had very high FiO2 requirements at discharge. Family reports requiring 15L/min O2 NC with exertion, 6L/min O2 NC at rest. He was discharged to a facility ([facility]) that they were told could accommodate these needs, however upon arrival, it was determined that the facility would be unable to provide this amount of supplemental oxygen, and he was sent back to the emergency department. He reports that has been experiencing shortness of breath, cough that is occasionally productive of brown sputum (occasionally blood tinged). He reports associated left sided pleuritic discomfort. He denies fever/chills, wheeze, abd pain, nausea, vomiting, diarrhea, lower extremity edema, focal neurologic deficits. ? Patient reports that he was following with Dr. Hein (pulmonary - [place]) for progressively worsening shortness of breath. He was told that he has pulmonary fibrosis, and there had been concern that this could be related to rheumatoid arthritis. He was subsequently referred to rheumatology, and diagnosed with RA several weeks ago. No immunosuppressive therapy has been started. He states he was taking Breo and ProAir at home prior to admission. Patient's family states that he did not require any supplemental oxygen prior to his last hospital admission. He was experiencing dyspnea, however he was still fairly active (ie had been doing yard work, etc). He is a former smoker, 40-50 pack years, quit in 1996. 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 // No acute events overnight. Reviewed CT chest and US LL results. Patient and family reassured. No complaints. SUBJECTIVE: Patient felt better than on admission, but this morning at 5AM felt more SOB, had nasal soreness, up to 12L O2. Feels SOB even when using bedside commode. No worsening cough or congestion. Denies chest pain or increased edema. He is tolerating meals, with no N/V or abdominal pain. He gets anxious because of his breathing issues. He was constipated but had BM yesterday. Pulmonology is following. MEDICATIONS: Reviewed Objective PHYSICAL EXAM: BP 100/63 Pulse 73 Temp (Src) 97.3 (Oral) Resp 19 Ht 5' 9 (1.75m) Wt 181 lb 14.4 oz (82.5kg) SpO2 95% BMI 26.85 kg/(m2). Physical Exam Performed: GENERAL: Alert, no distress, cooperative, sitting up in chair SKIN: Skin color, texture, turgor normal HEAD/SINUSES: No significant findings EYES: PERRLA, EOMI OROPHARYNX: Lips, mucosa, and tongue normal. NECK: Supple, soft BACK: No CVAT. LUNGS: Slightly labored breathing, rales at bases. CARDIAC: Normal S1 and S2; no rubs or gallops ABDOMEN: Abdomen soft, non-tender, BS normal EXTREMITIES: Extremities with LE edema. Good capillary refill NEURO: AANDO X3. 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 - Of note, patient has had recent diagnosis of apparent RA. - Per pulmonology, differential diagnosis of this ILD includes IPF, non specific interstitial pneumonitis (NSIP), rheumatoid lung disease, asbestosis. - BNP r/o HF, echocardiogram shows EF 61%, no diastolic dysfunction - CT chest showed multifocal bilateral pulmonary infiltrates on background of severe COPD/emphysema, not deemed pneumonia at this time per pulm/signals analyst; also showed lung nodules - On aerosols, weaning O2, on oral prednisone - Per pulmonology, to have further evaluation and treatment options discussed at [facility] Interdisciplinary ILD conference, perhaps as early as 09/17/2018. - Follow up CT scans from [facility]. - Pulmonology is on consult ILD (interstitial lung disease) ([facility]) 09/14/2018 - Present Current Assessment AND Plan As per above. Pulmonology is on consult DVT (deep venous thrombosis) ([facility]) 08/06/2018 - Present Current Assessment AND Plan - Recent diagnosis of DVT - Diagnosed 08/2018 per patient/family, with bilateral LE involvement per them. - On Xarelto; ?provoked in setting of recent prior hospitalizations - Had LE pain AND paresthesias yesterday. LE DVT US is negative - Continue Xarelto course Arthritis 09/05/2018 - Present Current Assessment AND Plan - Possible RA - Recent diagnosis, with positive RF - Not on meds, further outpatient management Abnormal CT scan, gastrointestinal tract 09/15/2018 - Present Current Assessment AND Plan As above, recommended MRI pancreas with contrast at some point Leukocytosis 09/15/2018 - Present Current Assessment AND Plan Follow up labs Hypertension, essential 09/05/2018 - Present MGUS (monoclonal gammopathy of unknown significance) Unknown - Present Secondary pulmonary arterial hypertension (HCC) 09/05/2018 - Present VTE Prophylaxis: VTE prophylaxis appropriate Plan of care discussed with: Patient and Consultants: Pulmonology SIGNATURE: Delphine Martines MD PATIENT NAME: David Briceno DATE: September 16, 2018 TIME: 11:52 AM PAGER/CONTACT #: [phone] CONSULT PROG Observed: 09/16/2018 Status: COMPLETED Source: [place] 11:05 AM [facility] OTHER CAMPUS REPOSITORY HNO ID: [id number] Author: Rosy Barker Service: Pulmonary Disease Author Type: Physician Type: Consult Progress Note Filed: 09/16/2018 4:55 PM Note Text: [facility] Respiratory [place], September 16, 2018: INTERVAL HISTORY: Requiring 12L oxymizer when seen this morning. Feels increasingly SOB and complains of nasal soreness. Denies chest pain, abdominal pain. DVT study negative yesterday. MAR and allergies reviewed today. PHYSICAL EXAM: Vitals: BP 104/60 Pulse 88 Temp 36.5 ?C (97.7 ?F) (Oral) Resp 20 Ht 175.3 cm (5' 9) Wt 82.5 kg (181 lb 14.4 oz) SpO2 91% BMI 26.86 kg/m? Temp (24hrs), Av.5 ?C (97.7 ?F), Min:36.3 ?C (97.3 ?F), Max:36.7 ?C (98.1 ?F) O2: 12L/min Oxymizer General: No acute distress. Cooperative with exam ENT: Sclera white. Hearing grossly intact. Intranasal erythema. Lungs: Respirations are labored. Scattered crackles bilaterally. Cardiovascular: Regular rate. No lower extremity edema. Peripheral pulses intact bilaterally. Abdomen: Soft, non-tender. Extremities: No cyanosis. Warm and well perfused. NEURO: Alert. Awake. Follows commands. Answers questions appropriately. PSYCH: Mood and affect are appropriate for situation. DATA: LABS: Component 09/11/2018 09/12/2018 09/13/2018 09/14/2018 09/15/2018 09/16/2018 WBC 20.12 (H) 18.76 (H) 19.57 (H) 18.48 (H) 15.31 (H) 16.53 (H) RBC 4.94 4.81 4.51 4.58 4.72 4.60 Hemoglobin 14.7 14.3 13.2 13.5 13.9 13.7 Hematocrit 44.3 43.3 40.9 41.6 42.6 41.9 Platelet Count 221 197 189 175 176 181 Protein, Total 6.3 Albumin 3.0 (L) Calcium 8.6 8.9 8.8 8.7 8.9 8.7 Bilirubin, Total 0.7 Alkaline Phosphatase 56 AST 20 Glucose 185 (H) 100 (H) 99 87 126 (H) 121 (H) BUN 16 16 19 15 13 13 Creatinine 0.66 (L) 0.75 0.70 (L) 0.74 0.59 (L) 0.57 (L) Sodium 134 (L) 139 138 138 135 (L) 140 Potassium 3.9 3.8 3.4 (L) 3.5 (L) 4.3 4.5 Chloride 95 (L) 96 (L) 96 (L) 97 96 (L) 100 CO2 25 29 32 (H) 32 (H) 30 30 Anion Gap 14 14 10 9 9 10 ALT 35 eGFR-All Other Races >60 >60 >60 >60 >60 >60 NT Pro BNP 166 58 Procalcitonin <0.06 Magnesium 2.3 2.1 2.0 2.2 Phosphorus 4.1 3.6 3.2 IMAGING: LE DVT Study 09/15/18: IMPRESSION: No deep venous thrombosis is found in either thigh. CT chest non-contrast 09/11/18: IMPRESSION: Multifocal bilateral pulmonary infiltrates, superimposed on a background of moderate to severe pulmonary emphysema. ?Findings likely represent multifocal pneumonia. Recommend follow-up to resolution. A few lung nodules measuring up to 5 mm. ?Incidental Finding: ?No follow-up imaging for this incidentally detected lung nodule is recommended. If there are risk factors for lung malignancy or if the nodule has suspicious features (eg spiculated or upper lobe location), a follow-up chest CT exam could be obtained in 12 months. Small area of focal contour bulge along the anterior pancreatic tail. ? Unclear whether this represents a small focus of exophytic pancreatic tissue or a small mass. ?Nonemergent MRI pancreas with contrast is recommended if clinically feasible. ECHO 09/14/18: CONCLUSIONS: - Technically difficult exam due to body habitus and on biPap during echo, respiratory interference, and bedside in ICU. - Exam indication: Suspected pulmonary hypertension - The left ventricle is normal in size. Left ventricular systolic function is normal. EF = 61 ? 5% (2D biplane) Normal left ventricular diastolic function. - The right ventricle is normal in size. Right ventricular systolic function is normal. - Limited subcostal views due to poor acoustic window. Hepatic vein not visualized. - The patient has not had a prior CC echocardiographic exam for comparison. IMPRESSION/RECOMMEND: 1. Acute/chronic hypoxemic respiratory failure secondary to concomitant emphysematous COPD and pulmonary fibrosis. Prior significant asbestos exposure, known positive rheumatoid factor (false positive associated with IPF or true Rheumatoid Arthritis). Differential diagnosis of this interstitial lung disease would include idiopathic?pulmonary fibrosis (IPF), non specific interstitial pneumonitis (NSIP), Rheumatoid lung disease, asbestosis. - Continue supplemental oxygen therapy, targeting spO2 >?90%. Wean as able. - Nebulized ipratropium/albuterol every 6 hours. - Prednisone 20mg daily. - Discuss further evaluation and Rx options at [facility] Interdisciplinary ILD conference, hopefully 09/17/2018. - Awaiting past CT scans from [facility]. ? 2. Rheumatoid arthritis? Positive RF could represent false positive associated with IPF, or true Rheumatoid Arthritis. - No evidence of joint deformity on physical exam. ? 3. DVT 08/2018. - Continue Xarelto. - DVT study 09/15/18 negative. Discussed with family at bedside and ALEJO Waters. SIGNATURE: Ronda Vieira PA-C DATE: September 16, 2018 TIME: 11:05 AM Attending Note I have personally performed a face to face assessment of the patient and have reviewed the PA/METAL HANGER note. My fan findings include: History is as recorded. Exam is as recorded. Assessment/Plan are as edited. Other additions or changes: As edited. Signature: Rosy Barker MD Date: 09/16/2018 Time: 4:54 PM Rosy Barker MD, [facility] Medical Office [place] [address] P: [phone] F: [phone] CASE MANAGEM Observed: 09/16/2018 Status: COMPLETED Source: [place] 10:51 AM CLINIC OTHER CAMPUS REPOSITORY HNO ID: [id number] Author: Yola Boyd (Sw) Service: Care Management Author Type: Drywall Finishing Foreman Type: Care Mgt Progress Note Filed: 09/16/2018 11:20 AM Note Text: CARE MANAGEMENT PROGRESS NOTE SERVICE DATE: 09/16/2018 SERVICE TIME: 10:51 AM LOS: 5 days FREEDOM OF CHOICE GIVEN: Yes offered and explained Financial Disclosure Provided Met with pt and pts family at bedside. Pt gave permission to speak in front of family. Pt provided both SNF and HHC list. Per PT, may progress to Home PT, currently recommending SNF. TRAFFIC EXPERT recommended pt making choices from both lists to ensure that precert can begin with no delay to dc. Pt remains on 8L O2 on High flow. Pt stated that he would NOT be going back to [facility], since he had a big scare there with O2 issues. Pt also requested for TRAFFIC EXPERT to call pt's son : [phone] - emailed both lists - HHC and SNF to Mateo - [email or web address]. Mateo explained that Pt was denied with LTACH upon his last admission, TRAFFIC EXPERT explained revenue codes and indicated ref could be referred. Mateo chose both [facility] and [facility]. Ref sent to even see if pt had needed revenue codes to be considered. Will await both SNF and HHC choices in anticipation of possible SNF needs. SIGNATURE: CÉSAR Vick PATIENT NAME: David Briceno DATE: September 16, 2018 TIME: 10:51 AM PAGER/CONTACT #: [phone] NURSING PROG Observed: 09/16/2018 Status: COMPLETED Source: [place] 8:47 AM [facility] OTHER CAMPUS REPOSITORY HNO ID: [id number] Author: Evelin (Rn) ALEJO Shen Service: (none) Author Type: Registered Nurse Type: Nursing Progress Note Filed: 09/16/2018 8:56 AM Note Text: Nursing Progress Note Patient Name: David Briceno Patient Location: [id number] Daily Note: Patient demands 4 bedside rails up and in use- pt likes to use the bedside rails to help with repositioning. Pt educated by Ed (TANAM) and Leslie. This note was completed by: Evelin Shen RN CBC Collected: 09/16/2018 Status: F Source: [place] 5:26 AM [facility] OTHER CAMPUS REPOSITORY TYPE CODE TESTS RESULT OUT OF REFERENCE UNITS RANGE LAB WBC 3.70-11.00 k/uL WBC High 16.53 LAB RBC 4.20-6.00 m/uL RBC 4.60 LAB HGB 13.0-17.0 g/dL Hemoglobin 13.7 LAB HCT 39.0-51.0 % Hematocrit 41.9 LAB MCV 80.0-100.0 fL MCV 91.1 LAB MCH 26.0-34.0 pG MCH 29.8 LAB MCHC 30.5-36.0 g/dL MCHC 32.7 LAB RDWCV 11.5-15.0 % RDW-CV 14.4 LAB PLTCT 150-400 k/uL Platelet Count 181 LAB MPV 9.0-12.7 fL MPV 10.4 Performed By: #### CBC, BMP, MG1 #### [facility] [address] [facility] [phone] BASIC METABOLIC PANL Collected: 09/16/2018 Status: F Source: [place] 5:26 AM CLINIC OTHER CAMPUS REPOSITORY TYPE CODE TESTS RESULT OUT OF REFERENCE UNITS RANGE LAB GLU 74-99 mg/dL High Glucose 121 Result Comment: The [place] Diabetes Association (ADA) provides guidance for cutoff values for fasting glucose and random glucose. The ADA defines fasting as no caloric intake for at least 8 hours. Fas ting plasma glucose results between 100 to 125 mg/dL indicate increased risk for diabetes (prediabetes). Fasting plasma glucose results greater than or equal to 126 mg/dL meet the criteria for diagnosis of diabetes. In the absence of unequivocal hyperglycemia, results should be confirmed by repeat testing. In a patient with classic symptoms of hyperglycemia or hyperglycemic crisis, random plasma glucose results greater than or equal to 200 mg/dL meet the criteria for diagnosis of diabetes. Reference: Standards of Medical Care in Diabetes 2016, [place] Diabetes Association. Diabetes Care. 2016.39(Suppl 1). LAB BUN 9-24 mg/dL BUN 13 LAB CRET 0.73-1.22 mg/dL Creatinine Low 0.57 LAB NA 136-144 mmol/L Sodium 140 LAB K 3.7-5.1 mmol/L Potassium 4.5 LAB CL 97-105 mmol/L Chloride 100 LAB CO2 22-30 mmol/L CO2 30 LAB AGAP 9-18 mmol/L Anion Gap 10 LAB CA 8.5-10.2 mg/dL Calcium, Total 8.7 LAB GFRAA eGFR- Amer. >60 LAB GFRNAA . eGFR-All Other Races >60 Result Comment: eGFR (Estimated GFR) Units of measure: mL/min/1.73 meters squared eGFR is derived from the reexpressed MDRD Study equation using the following parameters: serum creatinine, age, gender and race. The creatinine assay has been calibrated to be traceable to IDMS. An eGFR <60 mL/min/1.73m2 for >3 months is consistent with chronic kidney disease. Refer to KDOQI guidelines for clinical interpretation. In patients with unstable renal function, e.g. those with acute kidney injury, the eGFR may not accurately reflect actual GFR. Performed By: #### CBC, BMP, MG1 #### [facility] [address] [facility] [phone] MAGNESIUM Collected: 09/16/2018 Status: F Source: [place] 5:26 AM CLINIC OTHER CAMPUS REPOSITORY TYPE CODE TESTS RESULT OUT OF REFERENCE UNITS RANGE LAB MG 1.7-2.3 mg/dL Magnesium 2.2 Performed By: #### CBC, BMP, MG1 #### [facility] [address] [facility] [phone] PROGRESS Observed: 09/15/2018 Status: COMPLETED Source: [place] 3:40 PM CLINIC OTHER CAMPUS REPOSITORY HNO ID: [id number] Author: Delphine Martines Service: Hospital Medicine Author Type: Physician Type: Progress Notes Filed: 09/15/2018 3:44 PM Note Text: HOSPITAL MEDICINE PROGRESS NOTE SERVICE DATE: 09/15/2018 SERVICE TIME: 3:00PM Primary Care Physician: Tati Medina MD NIGHT AND WEEKEND COVERAGE: Nights: Please contact pager [phone]. HPI: Mr. Briceno is a 73 yo gentleman who has been transferred to [facility] from [facility] ED with complaints of shortness of breath. His past medical history includes pulmonary fibrosis (previously has followed w/Dr Hein in [place]) - undetermined etiology, emphysema, HTN, GERD, DVT (Aug 2018) - on Xarelto prior to admission, recently diagnosed rheumatoid arthritis (not on immunosuppressive tx), CAD S/P CABG in 2005. He is a former smoker, 40-50 pack years, quit in 1996. ? Patient states that he has had multiple recent admissions to [facility] for pneumonia - once in April, and then most recently in August. Spent several weeks at [facility] in August 2018, during which time he was treated for pneumonia, ?COPD exacerbation, DVTs - started on Xarelto. Patient states he was treated with steroids, antibiotics, bronchodilators. Still had very high FiO2 requirements at discharge. Family reports requiring 15L/min O2 NC with exertion, 6L/min O2 NC at rest. He was discharged to a facility ([facility]) that they were told could accommodate these needs, however upon arrival, it was determined that the facility would be unable to provide this amount of supplemental oxygen, and he was sent back to the emergency department. He reports that has been experiencing shortness of breath, cough that is occasionally productive of brown sputum (occasionally blood tinged). He reports associated left sided pleuritic discomfort. He denies fever/chills, wheeze, abd pain, nausea, vomiting, diarrhea, lower extremity edema, focal neurologic deficits. ? Patient reports that he was following with Dr. Hein (pulmonary - [place]) for progressively worsening shortness of breath. He was told that he has pulmonary fibrosis, and there had been concern that this could be related to rheumatoid arthritis. He was subsequently referred to rheumatology, and diagnosed with RA several weeks ago. No immunosuppressive therapy has been started. He states he was taking Breo and ProAir at home prior to admission. Patient's family states that he did not require any supplemental oxygen prior to his last hospital admission. He was experiencing dyspnea, however he was still fairly active (ie had been doing yard work, etc). He is a former smoker, 40-50 pack years, quit in 1996. 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 // No acute events overnight. Reviewed CT chest and US LL results. Patient and family reassured. No complaints. SUBJECTIVE: Patient feels better than on admission, though still gets SOB when gets out of bed/chair, even when using bedside commode. No worsening cough or congestion. Denies chest pain or increased edema. He is tolerating meals, with no N/V or abdominal pain. He gets anxious because of his breathing issues. He was constipated but had BM this morning he says. MEDICATIONS: Reviewed Objective PHYSICAL EXAM: BP 99/61 Pulse 75 Temp (Src) 97.7 (Temporal Artery) Resp 21 Ht 5' 9 (1.75m) Wt 177 lb 7.5 oz (80.5kg) SpO2 91% BMI 26.20 kg/(m2). Physical Exam Performed: GENERAL: Alert, no distress, cooperative, sitting up in chair, examined in ICU SKIN: Skin color, texture, turgor normal HEAD/SINUSES: No significant findings EYES: PERRLA, EOMI OROPHARYNX: Lips, mucosa, and tongue normal. NECK: Supple, soft BACK: No CVAT. LUNGS: Lungs clear to auscultation, faint bibasilar rales. Good diaphragmatic excursion CARDIAC: Normal S1 and S2; no rubs or gallops ABDOMEN: Abdomen soft, non-tender, BS normal EXTREMITIES: Extremities with LE edema. Good capillary refill NEURO: AANDO X3. Sensation grossly intact, no dysarthria PULSES: 2+ radial, 2+ dorsalis pedis Lines, Drains, and Airways Line Peripheral 09/11/18 Admission to Hospital Short Left Forearm 20 Gauge 4 days Reviewed lines, drains, AND airways. 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 - Of note, patient has had recent diagnosis of apparent RA. - Per pulmonology, differential diagnosis of this ILD includes IPF, non specific interstitial pneumonitis (NSIP), rheumatoid lung disease, asbestosis. - BNP r/o HF, echocardiogram shows EF 61%, no diastolic dysfunction - CT chest shows multifocal bilateral pulmonary infiltrates on background of severe COPD/emphysema, not deemed pneumonia at this time per pulm/signals analyst; also showed lung nodules - On aerosols, weaning O2, on oral prednisone - Per pulmonology, to have further evaluation and treatment options discussed at [facility] Interdisciplinary ILD conference, perhaps as early as 09/17/2018. - Follow up CT scans from [facility]. - Pulmonology is on consult ILD (interstitial lung disease) ([facility]) 09/14/2018 - Present Current Assessment AND Plan As per above. Pulmonology is on consult DVT (deep venous thrombosis) ([facility]) 08/06/2018 - Present Current Assessment AND Plan - Recent diagnosis of DVT - Diagnosed 08/2018 per patient/family, with bilateral LE involvement per them. - On Xarelto; ?provoked in setting of recent prior hospitalizations - Had LE pain AND paresthesias today. LE DVT US is negative - Continue Xarelto course Arthritis 09/05/2018 - Present Current Assessment AND Plan - Possible RA - Recent diagnosis, with positive RF - Not on meds, further outpatient management Abnormal CT scan, gastrointestinal tract 09/15/2018 - Present Current Assessment AND Plan As above, recommended MRI pancreas with contrast at some point Leukocytosis 09/15/2018 - Present Current Assessment AND Plan Check am CBC Hyponatremia 09/15/2018 - Present Current Assessment AND Plan Assessment: Was given diuretic PLAN: Check AM labs Hypokalemia 09/15/2018 - Present Current Assessment AND Plan Assessment: Mild PLAN: F/u K, Mg Hypertension, essential 09/05/2018 - Present MGUS (monoclonal gammopathy of unknown significance) Unknown - Present Secondary pulmonary arterial hypertension (HCC) 09/05/2018 - Present DATA: Diagnostic tests reviewed for today's visit: Most recent labs and imaging results. Most recent EKG Most recent echocardiogram Medication and Non-Pharmacologic VTE Prophylaxis/Anticoagulants Anticoagulant AND Antiplatelet Medications Start Dose Route Frequency Ordered Stop 09/11/18 1730 rivaroxaban 20 mg tab(s) (XARELTO) (rivaroxaban DVT/PE CONTINUATION of therapy beyond 21 days) 20 mg ORAL DAILY WITH DINNER 09/11/18 1729 -- VTE Prophylaxis: VTE prophylaxis appropriate Plan of care discussed with: Patient and Family/Significant Other: Spouse, daughter at bedside in ICU SIGNATURE: Delphine Martines MD PATIENT NAME: David Briceno DATE: September 15, 2018 TIME: 3:40 PM PAGER/CONTACT #: [phone] PROGRESS Observed: 09/15/2018 Status: COMPLETED Source: [place] 12:16 PM CLINIC OTHER CAMPUS REPOSITORY HNO ID: [id number] Author: Radha Ledesma Service: Critical Care Author Type: Anesthesiologist Type: Progress Notes Filed: 09/15/2018 12:28 PM Note Text: ICU STAFF -- DR. LEDESMA REASON FOR ICU ADMISSION AND PERTINENT RECENT HISTORY This 73 year old male shows decreased O2 requirements with minimal cough and no fever. Prednisone was increased to 1 mg/kg yesterday. He is alert without delirium. He tolerates Oxymyzer @7LPM with SaO2 93%. Subjective: Increased well being. Reports formal PFT's in 2007 (no record found). Objective: Physical exam: Blood pressure 109/68, pulse 69, temperature 36.5 ?C (97.7 ?F), temperature source Temporal Artery, resp. rate 28, height 175.3 cm (5' 9), weight 80.5 kg (177 lb 7.5 oz), SpO2 95 %. 1. HEENT: PERRL, EOMI. 2. Neck: JVP:6 3. Lungs: Work of breathing:- ; lung sounds: - 4. Heart: S3:- 5. Abdomen: appearance - 6. Extremities: +edema ; no pain to palpation 7. Skin:warm . 8. Neurological: Motor: 5/5; verbal commands: + Mechanical ventilation: Mode:Oxymyzer Lab: CBC, Coags, BMP, Mg, Phos Recent Labs 09/15/18 0604 09/14/18 0400 09/13/18 0343 WBC 15.31* 18.48* 19.57* HB 13.9 13.5 13.2 HCT 42.6 41.6 40.9 PLT 176 175 189 NA 135* 138 138 K 4.3 3.5* 3.4* CHLOR 96* 97 96* CO2 30 32* 32* BUN 13 15 19 CREAT 0.59* 0.74 0.70* GLUC 126* 87 99 CA 8.9 8.7 8.8 MG -- 2.0 2.1 P -- 3.2 3.6 CSF AND Dilantin Liver Function, Amylase, AND Lipase Cardiac Enzymes ABGs CXR:none Fluids: Intake/Output Summary (Last 24 hours) at 09/15/18 0659 Last data filed at 09/15/18 0600 Gross per 24 hour Intake 960 ml Output 2025 ml Net -1065 ml Daily Assessments: Restraints - Central Access - Sedation interruption - - Mcneil catheter required for clinical management: - Assessment: Seriously ill Patient Active Hospital Problem List: Acute respiratory failure (HCC) (09/11/2018) ILD (interstitial lung disease) ([facility]) (09/14/2018) Arthritis (09/05/2018) Hypertension, essential (09/05/2018) MGUS (monoclonal gammopathy of unknown significance) () DVT (deep venous thrombosis) ([facility]) (08/06/2018): Ultrasound negative X2 Secondary pulmonary arterial hypertension ([facility]) (09/05/2018) Plan: Diagnostics: Formal PFT's Hospital Medicine consult re: castillo transfer Pulmonary Medicine consult on-going Therapeutics: Medications: prednisone 80 mg QD; no evidence of DVT: re-consider need for anticoagulation Nutrition: Enteral Prophylaxis: DVT: PCS Stress gastritis:NA I have examined the patient and reviewed lab data and x-rays. I have evaluated the hemodynamic and respiratory data, ECG, prescribed IV fluids, adjusted O2 therapy, addressed prescribed nutritional and/or metabolic support.This care required my full attention and direct personal management in prevention of imminent clinical deterioration. Thank you for letting me follow this patient. SIGNATURE: Esdras Ledesma MD, MSc, [facility], [facility] DATE: September 15, 2018 TIME: 12:16 PM US DVT LOWER FABIÁN Observed: 09/15/2018 Status: F Source: [place] 11:14 AM [facility] OTHER CAMPUS REPOSITORY * * *Final Report* * * DATE OF EXAM: Sep 15 2018 11:14AM MDU 1005 - US DVT LOWER FABIÁN / PROCEDURE REASON: Leg swelling or pain, DVT suspected * * * * Physician Interpretation * * * * History: Bilateral lower extremity swelling. TECHNIQUE: Compression study and pulse and color Doppler exam were done from the groin down through the popliteal fossa on both sides. RESULTS: There is normal compressibility and Doppler flow in the deep venous system in each thigh. Portions of the calf veins were visualized. Blood flow appeared slowed within the deep veins of the lower extremities suggesting venous stasis, but no noncompressible deep venous thrombosis is noted. IMPRESSION: No deep venous thrombosis is found in either thigh. Environmental Consultant: PSCB Transcribe Date/Time: Sep 15 2018 11:33A Dictated by : RADHA PAIGE MD This examination was interpreted and the report reviewed and electronically signed by: RADHA PAIGE MD on Sep 15 2018 11:35AM EST [id number] CONSULT PROG Observed: 09/15/2018 Status: COMPLETED Source: [place] 9:59 AM [facility] OTHER CAMPUS REPOSITORY HNO ID: [id number] Author: Rosy Barker Service: Pulmonary Disease Author Type: Physician Type: Consult Progress Note Filed: 09/15/2018 5:26 PM Note Text: [facility] Respiratory [place], September 15, 2018: INTERVAL HISTORY: O2 weaned to 50% Hi Flow nasal O2, tolerating this well. Admits to some SOB and constipation. Denies diarrhea. Is having bilateral lower leg pain and tingling. MAR and allergies reviewed today. PHYSICAL EXAM: Vitals: BP 102/68 Pulse 89 Temp (!) 35.8 ?C (96.4 ?F) (Axillary) Resp 19 Ht 175.3 cm (5' 9) Wt 80.5 kg (177 lb 7.5 oz) SpO2 92% BMI 26.21 kg/m? Temp (24hrs), Av.5 ?C (97.7 ?F), Min:35.8 ?C (96.4 ?F), Max:36.8 ?C (98.2 ?F) O2: 50% HF O2 General: No acute distress. Cooperative with exam ENT: Sclera white. Hearing grossly intact. No visible nasal discharge or epistaxis. Lungs: Respirations are labored. Scattered crackles bilaterally. Cardiovascular: Regular rate. No lower extremity edema. Peripheral pulses intact bilaterally. Extremities: No cyanosis. Warm and well perfused. NEURO: Alert. Awake. Follows commands. Answers questions appropriately. PSYCH: Mood and affect are appropriate for situation. DATA: LABS: Component 09/11/2018 09/12/2018 09/13/2018 09/14/2018 09/15/2018 WBC 20.12 (H) 18.76 (H) 19.57 (H) 18.48 (H) 15.31 (H) RBC 4.94 4.81 4.51 4.58 4.72 Hemoglobin 14.7 14.3 13.2 13.5 13.9 Hematocrit 44.3 43.3 40.9 41.6 42.6 Platelet Count 221 197 189 175 176 Protein, Total 6.3 Albumin 3.0 (L) Calcium 8.6 8.9 8.8 8.7 8.9 Bilirubin, Total 0.7 Alkaline Phosphatase 56 AST 20 Glucose 185 (H) 100 (H) 99 87 126 (H) BUN 16 16 19 15 13 Creatinine 0.66 (L) 0.75 0.70 (L) 0.74 0.59 (L) Sodium 134 (L) 139 138 138 135 (L) Potassium 3.9 3.8 3.4 (L) 3.5 (L) 4.3 Chloride 95 (L) 96 (L) 96 (L) 97 96 (L) CO2 25 29 32 (H) 32 (H) 30 Anion Gap 14 14 10 9 9 ALT 35 eGFR-All Other Races >60 >60 >60 >60 >60 Sm Antibody <0.2 TRACK SUPERINTENDENT Antibody <0.2 SSA Antibody <0.2 SSB Antibody <0.2 Centromere Ab <0.2 Scleroderma Ab, IgG <0.2 Pily 1 Antibody <0.2 Ribosomal TRACK SUPERINTENDENT <0.2 Chromatin Antibody <0.2 PT Sec 12.3 PT INR 1.2 NT Pro BNP 166 58 CRP 5.0 (H) Sed Rate, Westergren 44 (H) Procalcitonin <0.06 Magnesium 2.3 2.1 2.0 Phosphorus 4.1 3.6 3.2 IMAGING: CT chest non-contrast 09/11/18: IMPRESSION: Multifocal bilateral pulmonary infiltrates, superimposed on a background of moderate to severe pulmonary emphysema. ?Findings likely represent multifocal pneumonia. Recommend follow-up to resolution. A few lung nodules measuring up to 5 mm. ?Incidental Finding: ?No follow-up imaging for this incidentally detected lung nodule is recommended. If there are risk factors for lung malignancy or if the nodule has suspicious features (eg spiculated or upper lobe location), a follow-up chest CT exam could be obtained in 12 months. Small area of focal contour bulge along the anterior pancreatic tail. ? Unclear whether this represents a small focus of exophytic pancreatic tissue or a small mass. ?Nonemergent MRI pancreas with contrast is recommended if clinically feasible. I have personally and independently reviewed these chest CT images and I concur with the findings as described. TO ECHO 09/14/18: CONCLUSIONS: - Technically difficult exam due to body habitus and on biPap during echo, respiratory interference, and bedside in ICU. - Exam indication: Suspected pulmonary hypertension - The left ventricle is normal in size. Left ventricular systolic function is normal. EF = 61 ? 5% (2D biplane) Normal left ventricular diastolic function. - The right ventricle is normal in size. Right ventricular systolic function is normal. - Limited subcostal views due to poor acoustic window. Hepatic vein not visualized. - The patient has not had a prior CC echocardiographic exam for comparison. IMPRESSION/RECOMMEND: 1. Acute on chronic hypoxemic respiratory failure secondary to concomitant emphysematous COPD and pulmonary fibrosis. Of note, patient has had significant asbestos exposure, as well as known positive rheumatoid factor (false positive associated with IPF or true Rheumatoid Arthritis). Differential diagnosis of this interstitial lung disease would include idiopathic pulmonary fibrosis (IPF), non specific interstitial pneumonitis (NSIP), Rheumatoid lung disease, asbestosis. - Continue supplemental oxygen therapy, targeting spO2 > 90%. Wean as able. - Nebulized ipratropium/albuterol every 6 hours. - Prednisone 20mg daily. - Discuss further evaluation and Rx options at [facility] Interdisciplinary ILD conference, perhaps as early as 09/17/2018. - Awaiting past CT scans from [facility]. 2. Rheumatoid arthritis? Positive RF could represent false positive associated with IPF, or true Rheumatoid Arthritis. - No evidence of joint deformity on physical exam. 3. DVT 08/2018. - Continue Xarelto. - Complaining of LE pain and paresthesias today. As risk of extension of previously diagnosed DVT is reduced but not eliminated by anticoagulant Rx, will order a LE DVT US. SIGNATURE: Ronda Vieira PA-C DATE: September 15, 2018 TIME: 9:59 AM Venous US legs, 09/15/2018: RESULTS: There is normal compressibility and Doppler flow in the deep venous system in each thigh. ?Portions of the calf veins were visualized. Blood flow appeared slowed within the deep veins of the lower extremities suggesting venous stasis, but no noncompressible deep venous thrombosis is noted. IMPRESSION: No deep venous thrombosis is found in either thigh. Attending Note I have personally performed a face to face assessment of the patient and have reviewed the PA/METAL HANGER note. My fan findings include: History is as recorded. Exam is as recorded. Assessment/Plan are as edited. Other additions or changes: As edited. Signature: Rosy Barker MD Date: 09/15/2018 Time: 5:25 PM Rosy Barker MD, [facility] Medical Office Building [place] [address] P: [phone] F: [phone] CBC Collected: 09/15/2018 Status: F Source: [place] 6:04 AM CLINIC OTHER CAMPUS REPOSITORY TYPE CODE TESTS RESULT OUT OF REFERENCE UNITS RANGE LAB WBC 3.70-11.00 k/uL WBC High 15.31 LAB RBC 4.20-6.00 m/uL RBC 4.72 LAB HGB 13.0-17.0 g/dL Hemoglobin 13.9 LAB HCT 39.0-51.0 % Hematocrit 42.6 LAB MCV 80.0-100.0 fL MCV 90.3 LAB MCH 26.0-34.0 pG MCH 29.4 LAB MCHC 30.5-36.0 g/dL MCHC 32.6 LAB RDWCV 11.5-15.0 % RDW-CV 14.4 LAB PLTCT 150-400 k/uL Platelet Count 176 LAB MPV 9.0-12.7 fL MPV 10.2 Performed By: #### CBC, BMP #### [facility] [address] [facility] [phone] BASIC METABOLIC PANL Collected: 09/15/2018 Status: F Source: [place] 6:04 AM CLINIC OTHER CAMPUS REPOSITORY TYPE CODE TESTS RESULT OUT OF REFERENCE UNITS RANGE LAB GLU 74-99 mg/dL High Glucose 126 Result Comment: The [place] Diabetes Association (ADA) provides guidance for cutoff values for fasting glucose and random glucose. The ADA defines fasting as no caloric intake for at least 8 hours. Fas ting plasma glucose results between 100 to 125 mg/dL indicate increased risk for diabetes (prediabetes). Fasting plasma glucose results greater than or equal to 126 mg/dL meet the criteria for diagnosis of diabetes. In the absence of unequivocal hyperglycemia, results should be confirmed by repeat testing. In a patient with classic symptoms of hyperglycemia or hyperglycemic crisis, random plasma glucose results greater than or equal to 200 mg/dL meet the criteria for diagnosis of diabetes. Reference: Standards of Medical Care in Diabetes 2016, [place] [employer] Association. Diabetes Care. 2016.39(Suppl 1). LAB BUN 9-24 mg/dL BUN 13 LAB CRET 0.73-1.22 mg/dL Creatinine Low 0.59 LAB NA 136-144 mmol/L Sodium Low 135 LAB K 3.7-5.1 mmol/L Potassium 4.3 LAB CL 97-105 mmol/L Chloride Low 96 LAB CO2 22-30 mmol/L CO2 30 LAB AGAP 9-18 mmol/L Anion Gap 9 LAB CA 8.5-10.2 mg/dL Calcium, Total 8.9 LAB GFRAA eGFR- Amer. >60 LAB GFRNAA . eGFR-All Other Races >60 Result Comment: eGFR (Estimated GFR) Units of measure: mL/min/1.73 meters squared eGFR is derived from the reexpressed MDRD Study equation using the following parameters: serum creatinine, age, gender and race. The creatinine assay has been calibrated to be traceable to IDMS. An eGFR <60 mL/min/1.73m2 for >3 months is consistent with chronic kidney disease. Refer to KDOQI guidelines for clinical interpretation. In patients with unstable renal function, e.g. those with acute kidney injury, the eGFR may not accurately reflect actual GFR. Performed By: #### CBC, BMP #### [facility] [address] [facility] [phone] THERAPY NT Observed: 09/14/2018 Status: COMPLETED Source: [place] 5:09 PM CLINIC OTHER CAMPUS REPOSITORY HNO ID: [id number] Author: Alejandra (Pt) Kelvin Service: Physical Therapy Author Type: Physical Therapist Type: Therapy (PT/OT/Speech/Resp) Filed: 09/14/2018 5:57 PM Note Text: Physical Therapy Treatment SERVICE DATE: 09/14/2018 SERVICE TIME: 1629 to 1705 ROOM: [place] [address] Recommended Discharge Disposition: Subacute/SNF (vs Home PT (anticipate pt will progress to home) ) Recommended Discharge Disposition Comments: Pt would benefit from further skilled therapy to address all functional limitations to allow pt to return to OF. Anticipate pt will progress to home with home PT with 24 hour assist/supervision. Pt will need to be able to tolerate activity while keeping SPO2 sats above 88%. Justification For Post Acute Needs: Anticipated community discharge;Cognition intact;Good family support;Good premorbid functional status;Living the community premorbidly;Motivated;Medically complex;Willing to participate;Anticipate that patient will require daily (5x/wk) skilled therapy in a post-acute facility setting at the time of acute hospital discharge Anticipated Discharge Needs: Physical Assist at Home;Supervision at Home Physical Assist at Home for: Cleaning;Laundry;Meals;Medication Management;Stairs;Safety;Self Care;Shopping;Transportation Supervision at Home due to: Other: See Comment (recent hospitalization; SOB; low SPO2 ) Recommended Discharge Equipment: To Be Determined PT Recommendations to Nursing: Ambulate with device;To bathroom;In halls;Transfer to/from chair;OOB for Meals;Sit at edge of bed;With assist of 1 person Device: Wheeled Walker PT 6 Clicks Score: 19 Precautions/Activity Restrictions: Lines/Tubes/Drains ASSESSMENT : Patient continues to require extended time to complete all exercises and mobility as below due to MORAN and hypoxia (down to lowest during session of 86% on 50% hi flow O2). Patient at times easily anxious with respiratory status during recovery, requires extended rest breaks and coaching 1:1 in proper deep breathing techniques and relaxation to assist with proper breathing. Patient's spouse present to observe throughout session and other visitors in at start and end of session, all noted to be supportive and attentive to pt needs. Patient is pleasant and cooperative throughout, demonstrates throughout session increasing awareness of current limitations and deficits. Patient appropriately follows cues and is receptive to all education however mobility remains greatly limited at this time by respiratory status. Continue to progress with 1:1 monitoring of vitals/response throughout for safe progression Patient Disposition at Start of Session: Supine in Bed;Call [place] in Reach;SCDs;Family Present Patient Disposition at End of Session: Supine in Bed;Call [place] in Reach;SCDs;Family Present Tolerance Limited By Physiologic Response;Other: See Comment (easily MORAN and hypoxic with minimal activity) Physical Therapy Problem List: Education Deficit;Decreased Activity Tolerance;Decreased Strength;Functional Mobility Impairment;Balance Impaired Patient /Caregiver Goals: Go Home (or rehab ) Goals for Plan of Care: Able to perform HEP with: Independent Transfer supine to/from sit with: Independent Transfer sit to/from stand with: Supervision Ambulate with: Stand By Assistance (keeping SPO2 sats above 88% ) Distance: 100-150 Device: Wheeled Walker (LRAD ) Ambulate up and down steps with: Stand By Assistance Number of steps: 10 Device: Rail;Hand Held Assist Car transfer with: Supervision Progress Toward Goals: Progressing slower than expected Due To: MORAN/hypoxia with any/all mobility Rehab Potential: Good PLAN: Treatment Frequency (times per week): 4 Current admission Treatment Interventions: Education;Energy Conservation Training;Strengthening;Functional Mobility Training;Balance Training;Neuromuscular Re-education Plan of Care developed with: Patient TREATMENT INTERVENTIONS: Therapy Diagnosis: Reduced mobility-other;General symptoms and signs-other Interventions Provided: Therapeutic Exercise (38997);Therapeutic Activity (25143) Therapeutic Exercise (22084) Treatment Minutes: 15 1 unit Skilled Intervention(s): Instruction in therapeutic exercise Verbal and tactile cuing provided Completes 15 repetitions (unless otherwise noted) of the following seated therapeutic exercises on B LE (unless otherwise indicated) with assistance as indicated sitting up at EOB: LAQs (no assistance)-slow pacing, lightly resisted isometric hip abduction bilaterally, lightly resisted isometric hip adduction bilaterally. Isometrics x 3-5 second hold, light manual resistance Patient completes the following standing therapeutic exercises bilaterally with B UE support x 10 repetitions, contact guard assist:hip abduction, heel/toe raises. Verbal and visual cues initially and throughout for safe pacing, proper breathing techniques, relaxation, safe technique and upright posture, rest breaks throughout extended between exercises, R/L due to MORAN and hypoxia. With seated exercises, pulse Ox throughout ranges 92-94% at EOB, with standing down to lowest of 86% and during standing requires 3-4 minutes to recover on all rest breaks with 1:1 monitoring of response and coached deep breathing Increased time to complete, pulse Ox within pt view throughout for feedback during recovery Education to patient and spouse primarily on benefits/rationale for exercises Patient with good recall of supine exercises/LE AROM techniques, encouraged patient to complete throughout the day as able to prevent functional decline Therapeutic Activity (73424) Treatment Minutes: 10 1 unit Skilled Intervention(s): Instructed patient in supine to sit pushing with upper extremities to sit up Instructed patient in sit to supine using safe, effective technique Instruction in sit to and from stand technique with proper hand placement and body positioning at edge of bed/chair See below for additional cues and assist Re-education/education to pt and spouse on importance of mobility as tolerated to prevent functional decline, use of call light 100% of the time for assist, importance of balancing activity with rest Pt and spouse/family educated on energy conservation techniques including deep breathing techniques, importance of rest breaks and pacing activities, sitting vs. Standing for activities, no talking while walking. Patient verbalizes understanding Line management in setting of ICU, 1:1 monitoring of vitals/response throughout Total Timed Code Treatment Minutes: 50 Total Treatment Time (minutes): 36 (-time to obtain equipment) FUNCTIONAL G CODE: PT 6 Clicks Score: 19 (09/14/18 1629) Mobility: Walking and Moving Around Current Status (G8978): CK (09/13/18 08) Mobility: Walking and Moving Around Goal Status (G8979): CJ (09/13/18804) Based on clinical assessment and the score on the 6 Clicks Functional Assessment Tool, the G code and corresponding severity modifiers are documented above. SUBJECTIVE: Current Hospital Course: Chart reviewed and no significant medical updates relevant to therapy were noted Reason for Physical Therapy Consult : safety assessment Relevant Past Medical History: CAD, COPD, CABG, GERD, RA, DVT 08/2018, pulmonary fibrosis, emphysema, Asbestos exposure, HTN, ND, prostate CA Patient Report: Patient resting supine in bed at approach with multiple family members/visitors present, no acute distress noted, agreeable to PT treatment, ok per RN for PT Patient requesting return to supine post-treatment due to recently returned to bed after being up in chair throughout the day Home Environment Patient Lives With: Spouse (Lives in a one level home with ) Assistance Available: 24 Hour Entry To Home: Stairs;With Rail Number Of Stairs Into Home: 10 Number Of Stairs To Bed/Bath: 0 Tub/Shower Type: walk-in shower and tub/shower combo Laundry: completes Equipment Owned: Standard Walker;Wheeled Walker Prior Functional Level: Within Functional Limits Prior Functional Level Comments: Prior to Pneumonia in April pt was independent; recently pt uses a FWW OBJECTIVE: CURRENT FUNCTIONAL STATUS: Current Functional Mobility Assist Level Additional Information Rolling Supine to Sit Stand By Assistance (with HOB flat, no use of bed rails) Minimal verbal cues for goal of task, sequencing, and deep breathing throughout Sit to Supine Stand By Assistance (with HOB flat, no use of bed rails) See above Scooting Stand By Assistance (/supervision forward/retro at EOB) Sit to Stand Contact Guard Assistance (x3 trials total at EOB, no device) PRN verbal cues for proper breathing throughout Stand to Sit Contact Guard Assistance (to bed x 3 trials total) See above Bed to Chair Toilet/Commode Gait Contact Guard Assistance Gait Device: None (gait belt) Gait Distance (feet): 3 feet laterally to L at EOB Stairs (unsafe for progression at this time) Curb Step Car Transfer General Gait Deviations: Dipti decreased;Step length decreased;Flexed trunk posture;Other: See comment (step to gait) -Patient resting supine in bed with family present, dinner tray set-up post-treatment, call ventura and personal belongings in reach, RN notified of patient status, denies needs at this time. -Gait belt in place for safety with all functional mobility -Lines/Tubes/Drains: Intact and as follows: telemetry, BP cuff, hi flow O2, heplock, pulse Ox Balance: Static Sitting;Dynamic Sitting;Static Standing;Dynamic Standing Static Sitting Balance: Supervision (sitting up at EOB ) Dynamic Sitting Balance: Supervision (at EOB for seated LE exercises) Static Standing Balance: Contact Guard Assistance Dynamic Standing Balance: Contact Guard Assistance Please see discipline specific clinical documentation flowsheet for complete details for this therapy evaluation/treatment. SIGNATURE: Alejandra Warren PT PATIENT NAME: David Briceno DATE: September 14, 2018 TIME: 5:09 PM 12 LEAD ELECTROCARDIOGRAM Observed: 09/14/2018 Status: F Source: [place] 1:54 PM [facility] REPOSITORY [facility] Cardiovascular Services [address] [place] [address] 12 Lead EKG 09/11/18 0941 MR#: [id number] Acct: [id number] Name: DAVID BRICENO Sr. Rep #: [id number] : 1945 73 From: Dmitriy Pride MD Attending Dr: Status: DEP ER Ordering Dr: Devin Braga MD Date: 09/11/18 Location: ED Sex: M C Admitted: Test Reason : SOB Blood Pressure : / mmHG Vent. Rate : 096 BPM Atrial Rate : 096 BPM P-R Int : 136 ms QRS Dur : 096 ms QT Int : 352 ms P-R-T Axes : 027 -07 018 degrees QTc Int : 444 ms Sinus rhythm with occasional Premature ventricular complexes and Premature atrial complexes Inferior infarct , age undetermined Abnormal ECG Confirmed by DMITRIY PRIDE MD ([id number]), communications editor ALONZO MALONEY ([id number]) on 09/14/2018 1:54:17 PM Referred By: SL Confirmed By:DMITRIY PRIDE MD 09/14/18 1354 Date Dmitriy Pride MD CC: Tati Medina MD; Devin Braga MD Signed NT PRO BNP Collected: 09/14/2018 Status: F Source: [place] 1:39 PM CLINIC OTHER CAMPUS REPOSITORY TYPE CODE TESTS RESULT OUT OF REFERENCE UNITS RANGE LAB PBNP <450 pg/mL PRO B Natr 58 Peptide Performed By: #### NTBNP #### [facility] [address] [facility] [phone] CASE MANAGEM Observed: 09/14/2018 Status: COMPLETED Source: [place] 11:47 AM CLINIC OTHER CAMPUS REPOSITORY HNO ID: [id number] Author: Alona (Rn) ALEJO Valeds Service: (none) Author Type: Registered Nurse Type: Care Mgt Progress Note Filed: 09/14/2018 11:48 AM Note Text: MULTIDISCIPLINARY ROUNDS SERVICE DATE: 09/14/2018 ADMISSION DATE: 09/11/2018 SERVICE TIME: 11:47 AM ANTICIPATED D/C DATE: 2-3 days Problem List: ACTIVE PROBLEM LIST Hand Pain Shoulder Pain Knee Pain Arthritis of Knee, Degenerative Medial Meniscus Tear Cts (Carpal Tunnel Syndrome) Synovitis of Wrist Medial Epicondylitis Acute Respiratory Failure (Hcc) Attendees Present at Rounds: [employer] Worker: Alona Valdes Clinical Nutrition: Paula Pharmacy: Paula Provider: Dr Ledesma Staff Nurse: Diana Cutler Needs Discussed on Rounds: Diet Discharge Needs Mobility Pain Plan of Care Anticipated Discharge Disposition: HHC vs SNF Last Vitals: BP 99/74 Pulse 91 Temp (Src) 97.7 (Oral) Resp 35 Ht 5' 9 (1.75m) Wt 177 lb 7.5 oz (80.5kg) SpO2 94% BMI 26.20 kg/(m2). Pt to remain in ICU today, on hi phil O2. Nursing: Mobility Intervention(s) Plan: Assist with Ambulation and Transfers Mobility Patient/Family Goals: Demonstrates ability to complete transfers with least level of assist. Mobility Goal Target Achievement Date: 09/18/18 Respiratory Alteration Intervention(s) Plan: Assess and Monitor Respiratory Status Respiratory Alteration Goals/Outcomes: Patient Demonstrates Adequate Ventilation Respiratory Goal Target Achievement Date: 09/17/18 DOCUMENTED BY: Alona Valdes RN PATIENT NAME: David Briceno DATE: September 14, 2018 TIME: 11:47 AM CSN: [id number] PROGRESS Observed: 09/14/2018 Status: COMPLETED Source: [place] 11:47 AM [facility] OTHER CAMPUS REPOSITORY O ID: [id number] Author: Radha Ledesma Service: Critical Care Author Type: Anesthesiologist Type: Progress Notes Filed: 09/14/2018 12:38 PM Note Text: ICU STAFF -- DR. LEDESMA REASON FOR ICU ADMISSION AND PERTINENT RECENT HISTORY Critically ill 73 year old male requires ICU care for acute respiratory failure with hypoxia. He currently receive HIFLO O2 @FiO2 0.60 on prednisone and bronchodilators. He believes that he has worsened since April 2018 after cutting down trees. He denies cough or wheezing, CHF, orthopnea, pulmonary embolism. He was diagnosed with DVT 08/2018 on anticoagulation. 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 He stopped smoking in 1993. He has used prednisone since early August. He reports rheumatoid arthritis without known lung involvement. NT-proBNP was not elevated at 166. Procalcitonin was 0.06. He receives empiric furosemide. Prior lung studies are not available (spirometry, DLCO) with no reported bronchoscopy. Subjective: Dyspnea and hypoxia with exertion for ~4 months. Objective: Physical exam: Blood pressure 99/74, pulse 91, temperature 36.5 ?C (97.7 ?F), temperature source Oral, resp. rate (!) 35, height 175.3 cm (5' 9), weight 80.5 kg (177 lb 7.5 oz), SpO2 94 %. Weight change: -0.7 kg (-1 lb 8.7 oz) 1. HEENT: PERRL, EOMI. 2. Neck: JVP:6 3. Lungs: Work of breathing:- ; lung sounds: -; no wheezing 4. Heart: S3:none 5. Abdomen: appearance soft 6. Extremities: no edema ; no pain to palpation 7. Skin:warm . 8. Neurological: Motor: 5/5; verbal commands: + Mechanical ventilation: Mode:HIFLO FiO2: 0.60 Lab: CBC, Coags, BMP, Mg, Phos Recent Labs 09/14/18 0400 09/13/18 0343 09/12/18 0529 09/11/18 1653 WBC 18.48* 19.57* 18.76* 20.12* HB 13.5 13.2 14.3 14.7 HCT 41.6 40.9 43.3 44.3 PLT 175 189 197 221 INR -- -- -- 1.2 NA 138 138 139 134* K 3.5* 3.4* 3.8 3.9 CHLOR 97 96* 96* 95* CO2 32* 32* 29 25 BUN 15 19 16 16 CREAT 0.74 0.70* 0.75 0.66* GLUC 87 99 100* 185* CA 8.7 8.8 8.9 8.6 MG 2.0 2.1 2.3 -- P 3.2 3.6 4.1 -- CSF AND Dilantin Liver Function, Amylase, AND Lipase Recent Labs 09/11/18 1700 09/11/18 1653 TPROT -- 6.3 ALB -- 3.0* ALT -- 35 AST -- 20 ALKPHOS -- 56 TBILI -- 0.7 LACT 2.0 -- Cardiac Enzymes ABGs Recent Labs 09/11/18 1700 PH 7.497* PCO2 34.7 PO2 79.6 BE 4.1 HCO3 26.7* O2HB 94.7 COHB 1.0 MHGB 0.5 CXR: bilateral, patchy alveolar changes, increased at lung bases Chest CT: + honey-comb changes; chronic alveolar changes greatest in bases; no adenopathy. Fluids: Intake/Output Summary (Last 24 hours) at 09/14/18 0659 Last data filed at 09/13/18 1900 Gross per 24 hour Intake 820 ml Output 1500 ml Net -680 ml Daily Assessments: Restraints - Central Access - Sedation interruption - - Mcneil catheter required for clinical management: - Assessment: Seriously ill ACTIVE PROBLEM LIST Acute Respiratory Failure (Hcc) Ild (Interstitial Lung Disease) (Hcc): working dx: acute exacerbation History of asbestos exposure Hand Pain Shoulder Pain Knee Pain Arthritis of Knee, Degenerative Medial Meniscus Tear Cts (Carpal Tunnel Syndrome) Synovitis of Wrist Medial Epicondylitis Plan: Diagnostics: Borderline oxygenation increases risk of bronchoscopy/biopsy: Doubt infectious cause. Chronic industrial exposures: asbestos, metals; reported history of rheumatoid arthritis. Review prior serological testing. Formal pulmonary function/DLCO Therapeutics: Medications: currently prescribed prednisone (increase to 1 mg/kg); empiric bronchodilator; O2 therapy Ventilator: O2 support Nutrition: Regular diet Prophylaxis: DVT: PCS/SQH Stress gastritis:PPI I have personally examined the patient today for an aggregate of 30 min of critical care time. I have examined the patient with the Housestaff (see above) and reviewed lab data and x-rays. I have evaluated the hemodynamic and respiratory data, ECG, prescribed IV fluids, adjusted respiratory care, assessed steroid therapy, prescribed nutritional and/or metabolic support. This care required my full attention and direct personal management in prevention of imminent clinical deterioration. Thank you for letting me follow this patient. SIGNATURE: Esdras Ledesma MD, MSc, [facility], [facility] DATE: September 14, 2018 TIME: 11:47 AM CONSULT PROG Observed: 09/14/2018 Status: COMPLETED Source: [place] 11:39 AM [facility] OTHER CAMPUS REPOSITORY HNO ID: [id number] Author: Rosy Barker Service: Pulmonary Disease Author Type: Physician Type: Consult Progress Note Filed: 09/14/2018 2:19 PM Note Text: [facility] Respiratory [place], September 14, 2018: INTERVAL HISTORY: Off BiPAP tolerating 60% HF nasal O2. Ongoing SOB and cough. Denies fever, chills, n/v/d. MAR and allergies reviewed today. PHYSICAL EXAM: Vitals: BP 99/74 Pulse 91 Temp 36.5 ?C (97.7 ?F) (Oral) Resp (!) 35 Ht 175.3 cm (5' 9) Wt 80.5 kg (177 lb 7.5 oz) SpO2 94% BMI 26.21 kg/m? Temp (24hrs), Av.6 ?C (97.8 ?F), Min:36.3 ?C (97.4 ?F), Max:36.8 ?C (98.2 ?F) O2: 60% HF General: No acute distress. Cooperative with exam ENT: Sclera white. Hearing grossly intact. No visible nasal discharge or epistaxis. Lips, tongue, buccal mucosa pink and moist. Lungs: Scattered crackles bilateral mid and lower lung gallego. No wheezes. Cardiovascular: Regular rate. No lower extremity edema. Peripheral pulses intact bilaterally. Extremities: No cyanosis. Warm and well perfused. NEURO: Alert. Awake. Follows commands. Answers questions appropriately. PSYCH: Mood and affect are appropriate for situation. DATA: LABS: Component 09/11/2018 09/12/2018 09/13/2018 09/14/2018 WBC 20.12 (H) 18.76 (H) 19.57 (H) 18.48 (H) RBC 4.94 4.81 4.51 4.58 Hemoglobin 14.7 14.3 13.2 13.5 Hematocrit 44.3 43.3 40.9 41.6 Platelet Count 221 197 189 175 Abs Eosin <0.03 Protein, Total 6.3 Albumin 3.0 (L) Calcium 8.6 8.9 8.8 8.7 Bilirubin, Total 0.7 Alkaline Phosphatase 56 AST 20 Glucose 185 (H) 100 (H) 99 87 BUN 16 16 19 15 Creatinine 0.66 (L) 0.75 0.70 (L) 0.74 Sodium 134 (L) 139 138 138 Potassium 3.9 3.8 3.4 (L) 3.5 (L) Chloride 95 (L) 96 (L) 96 (L) 97 CO2 25 29 32 (H) 32 (H) Anion Gap 14 14 10 9 ALT 35 eGFR-All Other Races >60 >60 >60 >60 NT Pro BNP 166 CRP 5.0 (H) Sed Rate, Westergren 44 (H) Procalcitonin <0.06 Magnesium 2.3 2.1 2.0 Phosphorus 4.1 3.6 3.2 Component 08/24/2018 (Outside Hosp) 09/11/2018 pO2, Arterial 50 79.6 Bicarbonate, Arterial 22 26.7 (H) pCO2, Arterial 27 34.7 pH, Arterial 7.52 7.497 (H) BG FIO2 6L, NC 60% HiFlo nasal IMAGING: CT chest non-contrast 09/11/18: IMPRESSION: Multifocal bilateral pulmonary infiltrates, superimposed on a background of moderate to severe pulmonary emphysema. ?Findings likely represent multifocal pneumonia. Recommend follow-up to resolution. A few lung nodules measuring up to 5 mm. ?Incidental Finding: ?No follow-up imaging for this incidentally detected lung nodule is recommended. If there are risk factors for lung malignancy or if the nodule has suspicious features (eg spiculated or upper lobe location), a follow-up chest CT exam could be obtained in 12 months. Small area of focal contour bulge along the anterior pancreatic tail. ? Unclear whether this represents a small focus of exophytic pancreatic tissue or a small mass. ?Nonemergent MRI pancreas with contrast is recommended if clinically feasible. I have personally and independently reviewed these chest CT images and I concur with the findings as described. TO LE DVT study 09/11/18: IMPRESSION: Bilateral deep venous stasis. ?No deep venous thrombosis in the visualized veins of both legs. Echocardiogram [facility] 08/24/2018: Left Ventricle: Normal LV size. Left ventricular systolic function is normal. The estimated ejection fraction is 60%. Stage 1 diastolic dysfunction. No regional wall motion abnormalities noted. Right Ventricle: Normal RV size. Normal systolic function. Atria: The left atrium is mildly enlarged. Normal right atrium. Mitral Valve: The mitral valve is structurally normal. No prolapse or stenosis seen. Tricuspid Valve: Normal tricuspid valve. Mild to moderate (1-2+) tricuspid valve insufficiency. Pulmonary artery systolic pressure is 44 mmHg. Aortic Valve: The aortic valve is not well visualized. Pulmonic Valve Normal pulmonic valve. Great Vessels: Mildly dilated aortic root. The pulmonary artery is normal size. Normal inferior vena cava. Pericardium/Pleural: No pericardial effusion. PFT, [facility], 06/16/2018: FVC(L) 3.07, 78%. +3% post BD. FEV1(L) 1.87, 66%. +11% post BD. FEV1(%) 0.61 0.66 post BD. TLC(L) 4.60, 77%. RV(L) 1.46, 59%. DLCO 12.9, 62%. DLCO/VA 3.14, 93%. 6 minute walk, [facility], 06/04/2018: Activity FiO2 P spO2 Dyspnea(Krystal) Resting 0.21 64 96% 3 1 min walk 0.21 72 92% 3 2 min walk 0.21 83 92% 3 3 min walk 0.21 86 91% 3 4 min walk 0.21 87 92% 3 5 min walk 0.21 88 92% 3 6 min walk 0.21 89 92% 3 1038 feet. Post walk 0.21 71 94% 3 IMPRESSION/RECOMMEND: 1. Acute on chronic hypoxemic respiratory failure secondary to COPD and concomitant pulmonary fibrosis. Of note, patient has had significant asbestos exposure, as well as known positive rheumatoid factor (false positive associated with IPF or true Rheumatoid Arthritis). My differential diagnosis of this interstitial lung disease would include idiopathic pulmonary fibrosis (IPF), non specific interstitial pneumonitis (NSIP), Rheumatoid lung disease, asbestosis. - Continue supplemental oxygen therapy, targeting spO2 > 92%. Wean as able. - Nebulized ipratropium/albuterol every 6 hours. - Prednisone 20mg daily. - Discuss further evaluation and Rx options at [facility] Interdisciplinary ILD conference, perhaps as early as 09/17/2018. 2. Rheumatoid arthritis? Positive RF could represent false positive associated with IPF, or true Rheumatoid Arthritis. 3. DVT 08/2018. - Xarelto. SIGNATURE: Ronda Vieira PA-C DATE: September 14, 2018 TIME: 11:39 AM Attending Note I have personally performed a face to face assessment of the patient and have reviewed the PA/METAL HANGER note. My fan findings include: History is as recorded. Exam is as recorded. Assessment/Plan are as edited Other additions or changes: As edited. I addressed the questions of the patient and his spouse and children at bedside, and they expressed understanding and acceptance of my answers. Signature: Rosy Barker MD Date: 09/14/2018 Time: 1:36 PM Rosy Barker MD, [facility] [address] [id number] P: [phone] F: [phone] ` CBC Collected: 09/14/2018 Status: F Source: [place] 4:00 AM [facility] OTHER [place] REPOSITORY TYPE CODE TESTS RESULT OUT OF REFERENCE UNITS RANGE LAB WBC 3.70-11.00 k/uL WBC High 18.48 LAB RBC 4.20-6.00 m/uL RBC 4.58 LAB HGB 13.0-17.0 g/dL Hemoglobin 13.5 LAB HCT 39.0-51.0 % Hematocrit 41.6 LAB MCV 80.0-100.0 fL MCV 90.8 LAB MCH 26.0-34.0 pG MCH 29.5 LAB MCHC 30.5-36.0 g/dL MCHC 32.5 LAB RDWCV 11.5-15.0 % RDW-CV 14.5 LAB PLTCT 150-400 k/uL Platelet Count 175 LAB MPV 9.0-12.7 fL MPV 10.2 Performed By: #### CBC, BMP, MG1, PHOS #### [facility] [address] [facility] [phone] BASIC METABOLIC PANL Collected: 09/14/2018 Status: F Source: [place] 4:00 [facility] REPOSITORY TYPE CODE TESTS RESULT OUT OF REFERENCE UNITS RANGE LAB GLU 74-99 mg/dL Glucose 87 Result Comment: The [place] Diabetes Association (ADA) provides guidance for cutoff values for fasting glucose and random glucose. The ADA defines fasting as no caloric intake for at least 8 hours. Fas ting plasma glucose results between 100 to 125 mg/dL indicate increased risk for diabetes (prediabetes). Fasting plasma glucose results greater than or equal to 126 mg/dL meet the criteria for diagnosis of diabetes. In the absence of unequivocal hyperglycemia, results should be confirmed by repeat testing. In a patient with classic symptoms of hyperglycemia or hyperglycemic crisis, random plasma glucose results greater than or equal to 200 mg/dL meet the criteria for diagnosis of diabetes. Reference: Standards of Medical Care in Diabetes 2016, [place] Diabetes Association. Diabetes Care. 2016.39(Suppl 1). LAB BUN 9-24 mg/dL BUN 15 LAB CRET 0.73-1.22 mg/dL Creatinine 0.74 LAB NA 136-144 mmol/L Sodium 138 LAB K 3.7-5.1 mmol/L Low Potassium 3.5 LAB CL 97-105 mmol/L Chloride 97 LAB CO2 22-30 mmol/L CO2 High 32 LAB AGAP 9-18 mmol/L Anion Gap 9 LAB CA 8.5-10.2 mg/dL Calcium, Total 8.7 LAB GFRAA eGFR- Amer. >60 LAB GFRNAA . eGFR-All Other Races >60 Result Comment: eGFR (Estimated GFR) Units of measure: mL/min/1.73 meters squared eGFR is derived from the reexpressed MDRD Study equation using the following parameters: serum creatinine, age, gender and race. The creatinine assay has been calibrated to be traceable to IDMS. An eGFR <60 mL/min/1.73m2 for >3 months is consistent with chronic kidney disease. Refer to KDOQI guidelines for clinical interpretation. In patients with unstable renal function, e.g. those with acute kidney injury, the eGFR may not accurately reflect actual GFR. Performed By: #### CBC, BMP, MG1, PHOS #### [facility] [address] [place], [place] [id number] MAGNESIUM Collected: 09/14/2018 Status: F Source: [place] 4:00 AM [facility] REPOSITORY TYPE CODE TESTS RESULT OUT OF REFERENCE UNITS RANGE LAB MG 1.7-2.3 mg/dL Magnesium 2.0 Performed By: #### CBC, BMP, MG1, PHOS #### [facility] [address] [place], [place] [id number] PHOSPHORUS Collected: 09/14/2018 Status: F Source: [place] 4:00 AM [facility] REPOSITORY TYPE CODE TESTS RESULT OUT OF REFERENCE UNITS RANGE LAB PHOS 2.7-4.8 mg/dL Phosphorus 3.2 Performed By: #### CBC, BMP, MG1, PHOS #### [facility] [address] [place], [place] [id number] CASE MANAGEM Observed: 09/13/2018 Status: COMPLETED Source: [place] 2:36 PM [facility] REPOSITORY HNO ID: [id number] Author: Hanna (Rn) ALEJO Rider Service: Care Management Author Type: Registered Nurse Type: Care Mgt Progress Note Filed: 09/13/2018 2:52 PM Note Text: CARE MANAGEMENT PROGRESS NOTE SERVICE DATE: 09/13/2018 SERVICE TIME: 01:25 PM LOS: 2 days CM met with family ( - Raquel and son - Jr David) [facility]. states he wants to avoid his father from being pin-balled all over this area since August: [facility] here. reports they were assured [facility] could meet his high phil oxygen needs. But the first issue pt had with SOB with exertion, they failed to have on hand what he needed. This caused anxiety and fear in Pt as well as family. stated Pt told him he thought he was going to . Dvid reports insurance denied sending him to [facility] originally instead opting to cover a SNF stay. reports he does not want this to happen again. He gave an example today when pt needed to use he urinal, and had a drop in his O2 to where the BiPAP had to be put on him. Discussed need for PT/OT evals with recommendations for assitance in DC planning. CM listened with HFranciRHelen. CM discussed this with Floor nurse, Sherrill, and JADE Gifford. Case management to follow. SIGNATURE: JUDSON Fisher, RN, ACM-RN PATIENT NAME: David Briceno DATE: September 13, 2018 TIME: 2:36 PM PAGER/CONTACT #: [phone] PROGRESS Observed: 09/13/2018 Status: COMPLETED Source: [place] 11:05 AM CLINIC OTHER CAMPUS REPOSITORY HNO ID: [id number] Author: Ronda Hi Service: Critical Care Author Type: Physician Type: Progress Notes Filed: 09/13/2018 11:09 AM Note Text: [facility] MEDICAL ICU PROGRESS NOTE SERVICE DATE: September 13, 2018 Admission Date: 09/11/2018 [facility] [place] STAFF PHYSICIAN NOTE OF PERSONAL INVOLVEMENT IN CARE IMPRESSION: This is a 73 year old male with # Acute on chronic hypoxemic respiratory failure # 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 Rheumatoid Arthritis # Hx DVT Aug 2018 on AC PLAN: >> Neuro: Patient is awake and alert, no focal deficits >> Pulm: Patient is not in respiratory distress, SPo2 92% on 10L NC with oximizer. Will wean for Spo2 88-90%. Continue Steroids 20 mg daily for now. discontinue Symbicort and start Pulmicort nebs BID and Scheduled breathing treatments. Continue Diuresis. >> CVS: VSS. Check ECHO. Resume home cardiac medications. >> ID: No Need for ABx. WNL procalcitonin. Will treat with ABx if indicated. Sent Sputum culture. >> Renal: Maintain euvolemia. Monitor UOP >> GI: Advance to heart healthy diet.. >> Endo: No history of diabetes. Will follow BS and adjuct accordingly. >> Heme: Xarelto for Hx DVT. U/S BLE reviewed. Noted elevated ESR and CRP. pending Anti CCP and Anti CAROLYN. >> PPX: DVT and GI PPx >> Dispo: Stay in ICU for high O2 requirements, Patient/Family Updated: Patient, David Briceno, and Patient's Next of Kin/Point of Contact, Son daughter and , updated regarding the goals of care, medical plan for the day, data warehouse consultant recommendations, medical disposition and current medical condition/prognosis as and if clinically indicated. All questions and concerns were answered and addressed at this juncture. This patient has a high probability of sudden, clinically significant deterioration, which requires the highest level of physician preparedness to intervene urgently. I managed/supervised life or organ supporting interventions that required frequent physician assessment. I devoted my full attention to the direct care of this patient for the amount of time indicated below. Time I spent with family or surrogate(s) is included only if the patient was incapable of providing the necessary information or participating in medical decision making. Time devoted to teaching and to any procedures I billed separately is not included. Critical Care Documentation: The patient has the following organ/system impairment(s): Respiratory failure (Acute on Chronic, with Hypoxemia) Time spent providing critical care services: 40 minutes. SUBJECTIVE: HISTORY OF PRESENT ILLNESS: Mr. Briceno is a 73 yo gentleman who has been transferred to [place] ICU from [facility] ED with complaints of shortness of breath. His past medical history includes pulmonary fibrosis (previously has followed w/Dr Hein in [place]) - undetermined etiology, emphysema, HTN, GERD, DVT (Aug 2018) - on Xarelto prior to admission, recently diagnosed rheumatoid arthritis (not on immunosuppressive tx), CAD S/P CABG in 2005. He is a former smoker, 40-50 pack years, quit in 1996. Patient states that he has had multiple recent admissions to [facility] for pneumonia - once in April, and then most recently in August. Spent several weeks at [facility] in August 2018, during which time he was treated for pneumonia, ?COPD exacerbation, DVTs - started on Xarelto. Patient states he was treated with steroids, antibiotics, bronchodilators. Still had very high FiO2 requirements at discharge. Family reports requiring 15L/min O2 NC with exertion, 6L/min O2 NC at rest. He was discharged to a facility ([facility]) that they were told could accommodate these needs, however upon arrival, it was determined that the facility would be unable to provide this amount of supplemental oxygen, and he was sent back to the emergency department. He reports that has been experiencing shortness of breath, cough that is occasionally productive of brown sputum (occasionally blood tinged). He reports associated left sided pleuritic discomfort. He denies fever/chills, wheeze, abd pain, nausea, vomiting, diarrhea, lower extremity edema, focal neurologic deficits. Patient reports that he was following with Dr. Hein (pulmonary - [place]) for progressively worsening shortness of breath. He was told that he has pulmonary fibrosis, and there had been concern that this could be related to rheumatoid arthritis. He was subsequently referred to rheumatology, and diagnosed with RA several weeks ago. No immunosuppressive therapy has been started. He states he was taking Breo and ProAir at home prior to admission. Patient's family states that he did not require any supplemental oxygen prior to his last hospital admission. He was experiencing dyspnea, however he was still fairly active (ie had been doing yard work, etc). He is a former smoker, 40-50 pack years, quit in 1996. 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 Interval HPI: 09/12/2018 No acute events overnight. Reviewed CT chest and US LL results. Patient and family reassured. No complaints. Interval HPI: 09/13/2018 No acute events overnight. Patient worked with PT this morning and he is completely worn off after this. Started on BIPAP for rest. O2 is 10L with Oximizer. REVIEW OF SYSTEMS: Constitutional:Negative for fevers/chills, weakness, malaise. HEENT:Negative for frequent or significant headaches, No changes in hearing or vision, no nose bleeds or other nasal problems, SEE HPI RESPIRATORY: See HPI, Positive for shortness of breath, cough. CARDIOVASCULAR: See HPI, Positive for chest pain, leg swelling or palpitations. GASTROINTESTINAL: See HPI Negative for abdominal discomfort, blood in stools or black stools or change in bowel habits GENITOURINARY: No history of dysuria, frequency or incontinence, See HPI MUSCULOSKELETAL: See HPI, Negative for joint pain or swelling, back pain. NEUROLOGIC: Negative for focal neurological deficits, dizziness or syncope. SKIN: Negative for lesions, rash, and itching. HEMATOLOGIC/LYMPHATIC/IMMUNOLOGIC: No easy bruising or swollen glands. ENDOCRINE: Negative for cold or heat intolerance, polyuria, polydipsia. See HPI The remainder of the ROS were reviewed and negative. OBJECTIVE: VITAL SIGNS (last 24hrs min/max): Patient Vitals for the past 24 hrs: BP Temp Temp src Pulse Resp SpO2 Weight 09/13/18 0800 106/71 - - 92 28 89 % - 09/13/18 0747 - 36.4 ?C (97.6 ?F) Oral - - - - 09/13/18 0715 - - - 63 20 - - 09/13/18 0705 - - - 61 20 95 % - 09/13/18 0600 119/72 - - 63 19 94 % - 09/13/18 0500 119/69 - - 60 17 95 % 81.2 kg (179 lb 0.2 oz) 09/13/18 0400 118/70 36.6 ?C (97.8 ?F) Oral (!) 59 18 95 % - 09/13/18 0300 115/65 - - (!) 57 17 94 % - 09/13/18 0200 114/68 - - 60 17 95 % - 09/13/18 0100 120/67 - - 64 11 95 % - 09/13/18 0000 120/67 - - 63 15 96 % - 09/12/18 2300 115/71 36.4 ?C (97.5 ?F) Temporal Art 84 (!) 33 96 % - 09/12/18 2200 125/73 - - 90 24 93 % - 09/12/18 2100 104/66 - - 74 20 93 % - 09/12/182019 - - - 91 24 - - 12/08/18 2005 - - - 85 21 92 % - 09/12/18 2000 120/65 - - 111 23 92 % - 09/12/18 1900 113/71 36.7 ?C (98.1 ?F) Temporal Art 82 26 89 % - 09/12/18 1800 118/74 - - 88 30 92 % - 09/12/18 1700 98/59 - - 70 21 94 % - 09/12/18 1600 100/61 - - 77 17 95 % - 09/12/18 1541 - - - 83 26 92 % - 09/12/18 1523 - - - 75 24 94 % - 09/12/18 1508 - 36.6 ?C (97.8 ?F) Temporal Art - - - - 09/12/18 1500 93/61 - - 77 23 93 % - 09/12/18 1200 110/64 - - 75 (!) 31 89 % - 09/12/18 1150 - - - 72 18 - - 09/12/18 1140 - - - 71 22 91 % - 09/12/18 1117 - 36.6 ?C (97.9 ?F) Temporal Art - - - - NET FLUID BALANCE Intake/Output Summary (Last 24 hours) at 09/13/18 1105 Last data filed at 09/13/18 0800 Gross per 24 hour Intake 822 ml Output 800 ml Net 22 ml MEDICATIONS Hospital/inpatient medications reviewed INDWELLING CATHETERS: Central Line: No Arterial Line: No Mcneil Catheter: No Other Lines/Drains: PIV PHYSICAL EXAM: Neurologic: Awake, oriented, Alert, Follows commands and Moving all extremities HEENT: Oral Mucosa: Moist mucous membranes Feeding Tube: No Eyes: Anicteric sclera, EOMI Cardiovascular: Regular rhythm Respiratory: Clear to auscultation. Respirations are unlabored. O2: 40% hi flow Abdomen: Soft and Nontender Extremities: Edema- No. No clubbing or cyanosis. Skin: Abnormalities- No Breakdown- No NUTRITION: Advanced to heart healthy diet DATA: Diagnostic tests reviewed for today's visit: Most recent labs and imaging results. PATIENT CHECKLIST ? Are restraints necessary: No ? Deep vein thrombosis prophylaxis administered? Yes - A/C, Xarelto ? Stress ulcer prophylaxis? Yes ? Nasogastric tube? No ? Mcneil catheter necessary? No ? Is central line essential? No ? Plan discussed with assigned RN? Yes ? Family updated within last 24 hours? Yes Ronda Hi MD Pulmonary / CC Staff PAGER: [phone] DATE of SERVICE:09/13/2018 TIME of SERVICE: 11:07 AM THERAPY NT Observed: 09/13/2018 Status: COMPLETED Source: [place] 9:12 AM CLINIC OTHER CAMPUS REPOSITORY HNO ID: [id number] Author: Kim (Pt) Trino Service: Physical Therapy Author Type: Physical Therapist Type: Therapy (PT/OT/Speech/Resp) Filed: 09/13/2018 9:22 AM Note Text: Physical Therapy Evaluation SERVICE DATE: 09/13/2018 SERVICE TIME: 804 to 844 ROOM: [place] [address] Recommended Discharge Disposition: Subacute/SNF (vs Home PT (anticipate pt will progress to home) ) Recommended Discharge Disposition Comments: Pt would benefit from further skilled therapy to address all functional limitations to allow pt to return to OF. Anticipate pt will progress to home with home PT with 24 hour assist/supervision. Pt will need to be able to tolerate activity while keeping SPO2 sats above 88%. Justification For Post Acute Needs: Anticipated community discharge;Cognition intact;Good family support;Good premorbid functional status;Living the community premorbidly;Motivated;Medically complex;Willing to participate;Anticipate that patient will require daily (5x/wk) skilled therapy in a post-acute facility setting at the time of acute hospital discharge Anticipated Discharge Needs: Physical Assist at Home;Supervision at Home Physical Assist at Home for: Cleaning;Laundry;Meals;Medication Management;Stairs;Safety;Self Care;Shopping;Transportation Supervision at Home due to: Other: See Comment (recent hospitalization; SOB; low SPO2 ) Recommended Discharge Equipment: To Be Determined PT Recommendations to Nursing: Ambulate with device;To bathroom;In halls;Transfer to/from chair;OOB for Meals;Sit at edge of bed;With assist of 1 person Device: Wheeled Walker PT 6 Clicks Score: 18 Precautions/Activity Restrictions: Lines/Tubes/Drains ASSESSMENT : Patient presents with decreased activity tolerance with SOB/low SPO2, decreased functional mobility, BLE weakness. Requires skilled PT to address BLE weakness, increase functional mobility, increase activity tolerance while keeping SPO2 sats above 88%, teach pt energy conservation technique and discharge planning. Pt is pleasant and motivated to participate in therapy and stay active. Pt struggled to increase ambulation distance due to fatigue, SOB and low SPO2 levels. Pt is on 12L O2 with Oxymizer during therapy session with SPO2 varying from 84-88%. Pt required frequent rest breaks due to SOB and needing to bring SPO2 above 88%. Pt will benefit from further skilled therapy to address all functional limitations. Anticipate pt will progress to home with Home PT if pt can keep SPO2 sats above 88% while performing all OOB activities, ambulate at least 100' and complete 10 steps to enter home. Patient Disposition at Start of Session: Supine in Bed;Call [place] in Reach;SCDs (nsg and pt agreeable to PT eval; gait belt used during sessi) Patient Disposition at End of Session: OOB in Chair;Call [place] in Reach (nsg notified ) Tolerance Limited By Other: See Comment (SOB, low SPO2 ) Physical Therapy Problem List: Education Deficit;Decreased Activity Tolerance;Decreased Strength;Functional Mobility Impairment;Balance Impaired Patient /Caregiver Goals: Go Home (or rehab ) Goals for Plan of Care: Able to perform HEP with: Independent Transfer supine to/from sit with: Independent Transfer sit to/from stand with: Supervision Ambulate with: Stand By Assistance (keeping SPO2 sats above 88% ) Distance: 100-150 Device: Wheeled Walker (LRAD ) Ambulate up and down steps with: Stand By Assistance Number of steps: 10 Device: Rail;Hand Held Assist Car transfer with: Supervision Progress Toward Goals: Progressing slower than expected Due To: SOB and low SPO2 Rehab Potential: Good PLAN: Treatment Frequency (times per week): 4 Current admission Treatment Interventions: Education;Energy Conservation Training;Strengthening;Functional Mobility Training;Balance Training;Neuromuscular Re-education Plan of Care developed with: Patient TREATMENT INTERVENTIONS: Therapy Diagnosis: Reduced mobility-other;Difficulty walking-musculoskeletal Interventions Provided: Evaluation;Therapeutic Exercise (23948);Therapeutic Activity (03287);Gait Training (71315) $ Evaluation-Moderate (70098) Billed Units: 1 unit Therapeutic Exercise (48640) Treatment Minutes: 8 Skilled Intervention(s): Instruction in therapeutic exercise supine/seated exercise plan consisting of AP x10 reps, glut sets x5 reps, quad sets x5 reps. Discussed completing LAQ however pt fatigued/SOB Education in HEP, encouraged pt to get OOB at least 3x/day for meals Therapeutic Activity (04058) Treatment Minutes: 12 1 unit Skilled Intervention(s): Monitoring vitals, SPO2 levels (see flow sheet) Gait Training (17449) Treatment Minutes: 10 1 unit Skilled Intervention(s): Instruction in sit to stand technique with proper hand placement and body positioning at edge of bed/chair, Instruction in stand to sit technique with LE's touching chair/bed and reaching back for surface, Instruction in sequencing, gait pattern and Instruction in use of equipment, cues for sequence and pattern Total Timed Code Treatment Minutes: 30 Total Treatment Time (minutes): 40 FUNCTIONAL G CODE: PT 6 Clicks Score: 18 (09/13/18804) Mobility: Walking and Moving Around Current Status (G8978): CK (09/13/18804) Mobility: Walking and Moving Around Goal Status (G8979): CJ (09/13/18804) Based on clinical assessment and the score on the 6 Clicks Functional Assessment Tool, the G code and corresponding severity modifiers are documented above. SUBJECTIVE: Current Hospital Course: Chart reviewed; SOB, acute respiratory failure Reason for Physical Therapy Consult : safety assessment Relevant Past Medical History: CAD, COPD, CABG, GERD, RA, DVT 08/2018, pulmonary fibrosis, emphysema, Asbestos exposure, HTN, ND, prostate CA Patient Report: Pt stated that he was at [facility] and would not like to go back there and would consider another place or go home. Home Environment Patient Lives With: Spouse (Lives in a one level home with ) Assistance Available: 24 Hour Entry To Home: Stairs;With Rail Number Of Stairs Into Home: 10 Number Of Stairs To Bed/Bath: 0 Tub/Shower Type: walk-in shower and tub/shower combo Laundry: completes Equipment Owned: Standard Walker;Wheeled Walker Prior Functional Level: Within Functional Limits Prior Functional Level Comments: Prior to Pneumonia in April pt was independent; recently pt uses a FWW OBJECTIVE: CURRENT FUNCTIONAL STATUS: Current Functional Mobility Assist Level Additional Information Rolling Supine to Sit Stand By Assistance (with HOB elevated 45 degrees ) Sit to Supine (pt remained OOB in bedside chair at the end of the session ) Scooting Stand By Assistance Sit to Stand Contact Guard Assistance Stand to Sit Contact Guard Assistance Bed to Chair Toilet/Commode Gait Contact Guard Assistance Gait Device: Wheeled Walker Gait Distance (feet): 4 Stairs (not appropriate due to low SPO2 with activity ) Curb Step Car Transfer General Gait Deviations: Dipti decreased;Step length decreased Range of Motion: WFL Strength: (BLE grossly 4/5 throughout ) Balance: Static Sitting;Dynamic Sitting;Static Standing;Dynamic Standing Static Sitting Balance: Independent Dynamic Sitting Balance: Supervision Static Standing Balance: Stand By Assistance Dynamic Standing Balance: Contact Guard Assistance Please see discipline specific clinical documentation flowsheet for complete details for this therapy evaluation/treatment. SIGNATURE: Kim Jameson PT PATIENT NAME: David Briceno DATE: September 13, 2018 TIME: 9:12 AM CBC Collected: 09/13/2018 Status: F Source: [place] 3:43 AM [facility] OTHER CAMPUS REPOSITORY TYPE CODE TESTS RESULT OUT OF REFERENCE UNITS RANGE LAB WBC 3.70-11.00 k/uL WBC High 19.57 LAB RBC 4.20-6.00 m/uL RBC 4.51 LAB HGB 13.0-17.0 g/dL Hemoglobin 13.2 LAB HCT 39.0-51.0 % Hematocrit 40.9 LAB MCV 80.0-100.0 fL MCV 90.7 LAB MCH 26.0-34.0 pG MCH 29.3 LAB MCHC 30.5-36.0 g/dL MCHC 32.3 LAB RDWCV 11.5-15.0 % RDW-CV 14.5 LAB PLTCT 150-400 k/uL Platelet Count 189 LAB MPV 9.0-12.7 fL MPV 10.4 Performed By: #### CBC, BMP, MG1, PHOS #### [facility] [address] [facility] [phone] BASIC METABOLIC PANL Collected: 09/13/2018 Status: F Source: [place] 3:43 AM [facility] OTHER CAMPUS REPOSITORY TYPE CODE TESTS RESULT OUT OF REFERENCE UNITS RANGE LAB GLU 74-99 mg/dL Glucose 99 Result Comment: The [place] Diabetes Association (ADA) provides guidance for cutoff values for fasting glucose and random glucose. The ADA defines fasting as no caloric intake for at least 8 hours. Fas ting plasma glucose results between 100 to 125 mg/dL indicate increased risk for diabetes (prediabetes). Fasting plasma glucose results greater than or equal to 126 mg/dL meet the criteria for diagnosis of diabetes. In the absence of unequivocal hyperglycemia, results should be confirmed by repeat testing. In a patient with classic symptoms of hyperglycemia or hyperglycemic crisis, random plasma glucose results greater than or equal to 200 mg/dL meet the criteria for diagnosis of diabetes. Reference: Standards of Medical Care in Diabetes 2016, [place] Diabetes Association. Diabetes Care. 2016.39(Suppl 1). LAB BUN 9-24 mg/dL BUN 19 LAB CRET 0.73-1.22 mg/dL Low Creatinine 0.70 LAB NA 136-144 mmol/L Sodium 138 LAB K 3.7-5.1 mmol/L Low Potassium 3.4 LAB CL 97-105 mmol/L Low Chloride 96 LAB CO2 22-30 mmol/L CO2 High 32 LAB AGAP 9-18 mmol/L Anion Gap 10 LAB CA 8.5-10.2 mg/dL Calcium, Total 8.8 LAB GFRAA eGFR- Amer. >60 LAB GFRNAA . eGFR-All Other Races >60 Result Comment: eGFR (Estimated GFR) Units of measure: mL/min/1.73 meters squared eGFR is derived from the reexpressed MDRD Study equation using the following parameters: serum creatinine, age, gender and race. The creatinine assay has been calibrated to be traceable to IDMS. An eGFR <60 mL/min/1.73m2 for >3 months is consistent with chronic kidney disease. Refer to KDOQI guidelines for clinical interpretation. In patients with unstable renal function, e.g. those with acute kidney injury, the eGFR may not accurately reflect actual GFR. Performed By: #### CBC, BMP, MG1, PHOS #### [facility] [address] [place] [address] MAGNESIUM Collected: 09/13/2018 Status: F Source: [place] 3:43 AM CLINIC OTHER CAMPUS REPOSITORY TYPE CODE TESTS RESULT OUT OF REFERENCE UNITS RANGE LAB MG 1.7-2.3 mg/dL Magnesium 2.1 Performed By: #### CBC, BMP, MG1, PHOS #### [facility] [address] [place] [phone] PHOSPHORUS Collected: 09/13/2018 Status: F Source: [place] 3:43 AM [facility] OTHER CAMPUS REPOSITORY TYPE CODE TESTS RESULT OUT OF REFERENCE UNITS RANGE LAB PHOS 2.7-4.8 mg/dL Phosphorus 3.6 Performed By: #### CBC, BMP, MG1, PHOS #### [facility] [address] [place] [address] PROGRESS Observed: 09/13/2018 Status: COMPLETED Source: [place] 3:15 AM CLINIC [facility] REPOSITORY HNO ID: [id number] Author: Downtime Note Service: (none) Author Type: (none) Type: Progress Notes Filed: 09/13/2018 3:19 AM Note Text: Epic Scheduled Downtime: 09/13/2018 1:00:00 AM to 09/13/2018 3:07:00 AM PROGRESS Observed: 09/12/2018 Status: COMPLETED Source: [place] 9:40 PM [facility] REPOSITORY HNO ID: [id number] Author: Augustina Garcia Service: [facility] Author Type: Physician Type: Progress Notes Filed: 09/12/2018 9:42 PM Note Text: eHospital Provider Note Call Initiation By: [facility]ospital Primary Reason for Call (Other): Missing AM laboratories Plan/Intervention (other): CBC and BMP added to AM laboratories. SIGNATURE: Augustina Garcia MD PATIENT NAME: David Briceno DATE: September 12 2018 TIME: 09:40 PM NURSING PROG Observed: 09/12/2018 Status: COMPLETED Source: [place] 7:00 PM [facility] REPOSITORY HNO ID: [id number] Author: Sherrill Villagomez) ALEJO Amor Service: Nursing Author Type: Registered Nurse Type: Nursing Progress Note Filed: 09/12/2018 7:47 PM Note Text: Nursing Progress Note Patient Name: David Briceno Patient Location: [id number] Daily Note: 1900 Produced fabiola large bloody clot from his right nostril. Says he can use his oxygen (10 ml/min via oxymizer) more efficiently now and feels much better. This note was completed by: Sherrill Amor RN HISTORY PHYSICAL Observed: 09/12/2018 Status: COMPLETED Source: [place] 11:37 AM [facility] REPOSITORY HNO ID: [id number] Author: Ronda Hi Service: Critical Care Author Type: Physician Type: HANDP Filed: 09/12/2018 11:41 AM Note Text: [facility] MEDICAL ICU PROGRESS NOTE SERVICE DATE: September 12, 2018 Admission Date: 09/11/2018 [facility] [place] STAFF PHYSICIAN NOTE OF PERSONAL INVOLVEMENT IN CARE IMPRESSION: This is a 73 year old male with # Acute on chronic hypoxemic respiratory failure # 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 Rheumatoid Arthritis # Hx DVT Aug 2018 on AC PLAN: >> Neuro: Patient is awake and alert, no focal deficits >> Pulm: Patient is not in respiratory distress, SPo2 92% on HF NC 40%. Will wean for Spo2 88-90%. Continue Steroids 20 mg daily for now. Continue Symbicort and Scheduled breathing treatments. Started Diuresis. >> CVS: VSS. Check ECHO. Resume home cardiac medications. >> ID: No Need for ABx. Check procalcitonin. Will treat with ABx if indicated. Sent Sputum culture. >> Renal: Maintain euvolemia. Monitor UOP >> GI: Advance to heart healthy diet.. >> Endo: No history of diabetes. Will follow BS and adjuct accordingly. >> Heme: Xarelto for Hx DVT. Check U/S BLE. Will check CBC. Check ESR, CRP, Anti CCP and Anti CAROLYN. >> PPX: DVT and GI PPx >> Dispo: Stay in ICU for high O2 requirements, Patient/Family Updated: Patient, David Briceno, and Patient's Next of Kin/Point of Contact, Son daughter and , updated regarding the goals of care, medical plan for the day, data warehouse consultant recommendations, medical disposition and current medical condition/prognosis as and if clinically indicated. All questions and concerns were answered and addressed at this juncture. This patient has a high probability of sudden, clinically significant deterioration, which requires the highest level of physician preparedness to intervene urgently. I managed/supervised life or organ supporting interventions that required frequent physician assessment. I devoted my full attention to the direct care of this patient for the amount of time indicated below. Time I spent with family or surrogate(s) is included only if the patient was incapable of providing the necessary information or participating in medical decision making. Time devoted to teaching and to any procedures I billed separately is not included. Critical Care Documentation: The patient has the following organ/system impairment(s): Respiratory failure (Acute on Chronic, with Hypoxemia) Time spent providing critical care services: 35 minutes. SUBJECTIVE: HISTORY OF PRESENT ILLNESS: Mr. Briceno is a 73 yo gentleman who has been transferred to [place] ICU from [facility] ED with complaints of shortness of breath. His past medical history includes pulmonary fibrosis (previously has followed w/Dr Hein in [place]) - undetermined etiology, emphysema, HTN, GERD, DVT (Aug 2018) - on Xarelto prior to admission, recently diagnosed rheumatoid arthritis (not on immunosuppressive tx), CAD S/P CABG in 2005. He is a former smoker, 40-50 pack years, quit in 1996. Patient states that he has had multiple recent admissions to [facility] for pneumonia - once in April, and then most recently in August. Spent several weeks at [facility] in August 2018, during which time he was treated for pneumonia, ?COPD exacerbation, DVTs - started on Xarelto. Patient states he was treated with steroids, antibiotics, bronchodilators. Still had very high FiO2 requirements at discharge. Family reports requiring 15L/min O2 NC with exertion, 6L/min O2 NC at rest. He was discharged to a facility ([facility]) that they were told could accommodate these needs, however upon arrival, it was determined that the facility would be unable to provide this amount of supplemental oxygen, and he was sent back to the emergency department. He reports that has been experiencing shortness of breath, cough that is occasionally productive of brown sputum (occasionally blood tinged). He reports associated left sided pleuritic discomfort. He denies fever/chills, wheeze, abd pain, nausea, vomiting, diarrhea, lower extremity edema, focal neurologic deficits. Patient reports that he was following with Dr. Hein (pulmonary - [place]) for progressively worsening shortness of breath. He was told that he has pulmonary fibrosis, and there had been concern that this could be related to rheumatoid arthritis. He was subsequently referred to rheumatology, and diagnosed with RA several weeks ago. No immunosuppressive therapy has been started. He states he was taking Breo and ProAir at home prior to admission. Patient's family states that he did not require any supplemental oxygen prior to his last hospital admission. He was experiencing dyspnea, however he was still fairly active (ie had been doing yard work, etc). He is a former smoker, 40-50 pack years, quit in 1996. 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 Interval HPI: 09/12/2018 No acute events overnight. Reviewed CT chest and US LL results. Patient and family reassured. No complaints. REVIEW OF SYSTEMS: Constitutional:Negative for fevers/chills, weakness, malaise. HEENT:Negative for frequent or significant headaches, No changes in hearing or vision, no nose bleeds or other nasal problems, SEE HPI RESPIRATORY: See HPI, Positive for shortness of breath, cough. CARDIOVASCULAR: See HPI, Positive for chest pain, leg swelling or palpitations. GASTROINTESTINAL: See HPI Negative for abdominal discomfort, blood in stools or black stools or change in bowel habits GENITOURINARY: No history of dysuria, frequency or incontinence, See HPI MUSCULOSKELETAL: See HPI, Negative for joint pain or swelling, back pain. NEUROLOGIC: Negative for focal neurological deficits, dizziness or syncope. SKIN: Negative for lesions, rash, and itching. HEMATOLOGIC/LYMPHATIC/IMMUNOLOGIC: No easy bruising or swollen glands. ENDOCRINE: Negative for cold or heat intolerance, polyuria, polydipsia. See HPI The remainder of the ROS were reviewed and negative. OBJECTIVE: VITAL SIGNS (last 24hrs min/max): Patient Vitals for the past 24 hrs: BP Temp Temp src Pulse Resp SpO2 Height Weight 09/12/18 1117 - 36.6 ?C (97.9 ?F) Temporal Art - - - - - 09/12/18 0800 131/87 36.4 ?C (97.6 ?F) Oral 80 23 88 % - - 09/12/18 0725 - - - 60 18 - - - 09/12/18 0715 - - - 61 20 94 % - - 09/12/18 0645 - - - - - - - 81.1 kg (178 lb 12.7 oz) 09/12/18 0600 140/75 - - 63 15 93 % - - 09/12/18 0500 135/78 - - 63 17 94 % - - 09/12/18 0435 - 36.4 ?C (97.6 ?F) Oral - - - - - 09/12/18 0400 154/83 - - 73 19 95 % - - 09/12/18 0300 150/86 - - 74 16 94 % - - 09/12/18 0200 141/82 - - 67 18 95 % - - 09/12/18 0100 122/74 - - 67 13 94 % - - 09/12/18 0000 135/79 37.2 ?C (99 ?F) Temporal Art 68 15 93 % - - 09/11/18 2300 132/76 - - 68 13 92 % - - 09/11/18 2200 122/76 - - 71 20 91 % - - 09/11/18 2100 127/77 - - 75 21 91 % - - 09/11/182051 - 36.6 ?C (97.8 ?F) Oral - - - - - 09/11/182034 - - - 80 27 - - - 09/11/182022 - - - 81 20 94 % - - 09/11/181999 129/88 - - 80 25 93 % - - 09/11/18 1900 128/72 - - 112 23 92 % - - 09/11/18 1800 127/83 - - 83 30 92 % - - 09/11/18 1700 103/68 - - 78 28 93 % - - 09/11/18 1645 110/66 - - 76 26 94 % - - 09/11/18 1640 - - - 78 21 - - - 09/11/18 1630 101/65 - - 75 25 92 % - - 09/11/18 1627 - - - 77 (!) 34 95 % - - 09/11/18 1625 - - - 79 27 - - - 09/11/18 1615 106/59 - - 77 24 91 % - - 09/11/18 1600 124/70 36.4 ?C (97.6 ?F) Axillary - - - 175.3 cm (5' 9) 81 kg (178 lb 9.2 oz) NET FLUID BALANCE Intake/Output Summary (Last 24 hours) at 09/12/18 1137 Last data filed at 09/12/18 1132 Gross per 24 hour Intake 830 ml Output 825 ml Net 5 ml MEDICATIONS Hospital/inpatient medications reviewed INDWELLING CATHETERS: Central Line: No Arterial Line: No Mcneil Catheter: No Other Lines/Drains: PIV PHYSICAL EXAM: Neurologic: Awake, oriented, Alert, Follows commands and Moving all extremities HEENT: Oral Mucosa: Moist mucous membranes Feeding Tube: No Eyes: Anicteric sclera, EOMI Cardiovascular: Regular rhythm Respiratory: Clear to auscultation. Respirations are unlabored. O2: 40% hi flow Abdomen: Soft and Nontender Extremities: Edema- No. No clubbing or cyanosis. Skin: Abnormalities- No Breakdown- No NUTRITION: Clear liquid diet DATA: Diagnostic tests reviewed for today's visit: Most recent labs and imaging results. PATIENT CHECKLIST ? Are restraints necessary: No ? Deep vein thrombosis prophylaxis administered? Yes - A/C, Xarelto ? Stress ulcer prophylaxis? Yes ? Nasogastric tube? No ? Mcneil catheter necessary? No ? Is central line essential? No ? Plan discussed with assigned RN? Yes ? Family updated within last 24 hours? Yes Ronda Hi MD Pulmonary / CC Staff PAGER: [phone] DATE of SERVICE:09/12/2018 TIME of SERVICE: 11:38 AM CBC AND DIFFERENTIAL Collected: 09/12/2018 Status: F Source: [place] 5:29 AM CLINIC OTHER CAMPUS REPOSITORY TYPE CODE TESTS RESULT OUT OF REFERENCE UNITS RANGE LAB WBC 3.70-11.00 k/uL WBC High 18.76 LAB RBC 4.20-6.00 m/uL RBC 4.81 LAB HGB 13.0-17.0 g/dL Hemoglobin 14.3 LAB HCT 39.0-51.0 % Hematocrit 43.3 LAB MCV 80.0-100.0 fL MCV 90.0 LAB MCH 26.0-34.0 pG MCH 29.7 LAB MCHC 30.5-36.0 g/dL MCHC 33.0 LAB RDWCV 11.5-15.0 % RDW-CV 14.5 LAB PLTCT 150-400 k/uL Platelet Count 197 LAB MPV 9.0-12.7 fL MPV 10.5 LAB ANEUT % Neut% 80.9 LAB AANEUT 1.45-7.50 k/uL Abs Neut High 15.19 LAB ALYMP % Lymph% 13.2 LAB AALYMP 1.00-4.00 k/uL Abs Lymph 2.47 LAB AMONO % [place]% 5.6 LAB AAMONO <0.87 k/uL Abs [place] High 1.05 LAB AEOS % Eosin% 0.1 LAB AAEOS <0.46 k/uL Abs Eosin <0.03 LAB ABASO % Baso% 0.2 LAB AABASO <0.11 k/uL Abs Baso 0.04 Performed By: #### CBCDIF, BMP, CRP, MG1, PHOS #### [facility] [address] [facility] [address] [facility] [phone] #### WSR, PROCAL, ENAID, CCP #### [facility] [address] [place], [place] [address] BASIC METABOLIC PANL Collected: 09/12/2018 Status: F Source: [place] 5:29 AM CLINIC OTHER CAMPUS REPOSITORY TYPE CODE TESTS RESULT OUT OF REFERENCE UNITS RANGE LAB GLU 74-99 mg/dL High Glucose 100 Result Comment: The [place] Diabetes Association (ADA) provides guidance for cutoff values for fasting glucose and random glucose. The ADA defines fasting as no caloric intake for at least 8 hours. Fas ting plasma glucose results between 100 to 125 mg/dL indicate increased risk for diabetes (prediabetes). Fasting plasma glucose results greater than or equal to 126 mg/dL meet the criteria for diagnosis of diabetes. In the absence of unequivocal hyperglycemia, results should be confirmed by repeat testing. In a patient with classic symptoms of hyperglycemia or hyperglycemic crisis, random plasma glucose results greater than or equal to 200 mg/dL meet the criteria for diagnosis of diabetes. Reference: Standards of Medical Care in Diabetes 2016, [place] Diabetes Association. Diabetes Care. 2016.39(Suppl 1). LAB BUN 9-24 mg/dL BUN 16 LAB CRET 0.73-1.22 mg/dL Creatinine 0.75 LAB NA 136-144 mmol/L Sodium 139 LAB K 3.7-5.1 mmol/L Potassium 3.8 LAB CL 97-105 mmol/L Chloride Low 96 LAB CO2 22-30 mmol/L CO2 29 LAB AGAP 9-18 mmol/L Anion Gap 14 LAB CA 8.5-10.2 mg/dL Calcium, Total 8.9 LAB GFRAA eGFR- Amer. >60 LAB GFRNAA . eGFR-All Other Races >60 Result Comment: eGFR (Estimated GFR) Units of measure: mL/min/1.73 meters squared eGFR is derived from the reexpressed MDRD Study equation using the following parameters: serum creatinine, age, gender and race. The creatinine assay has been calibrated to be traceable to IDMS. An eGFR <60 mL/min/1.73m2 for >3 months is consistent with chronic kidney disease. Refer to KDOQI guidelines for clinical interpretation. In patients with unstable renal function, e.g. those with acute kidney injury, the eGFR may not accurately reflect actual GFR. Performed By: #### CBCDIF, BMP, CRP, MG1, PHOS #### [place] [phone] #### WSR, PROCAL, ENAID, CCP #### [place] [phone] C-REACTIVE PROTEIN Collected: 09/12/2018 Status: F Source: [place] 5:29 AM [facility] OTHER [place] REPOSITORY TYPE CODE TESTS RESULT OUT OF REFERENCE UNITS RANGE LAB CRP <0.9 mg/dL High C-Reactive 5.0 Protein Performed By: #### CBCDIF, BMP, CRP, MG1, PHOS #### [place] [address] #### WSR, PROCAL, ENAID, CCP #### [place] [phone] MAGNESIUM Collected: 09/12/2018 Status: F Source: [place] 5:29 [facility] REPOSITORY TYPE CODE TESTS RESULT OUT OF REFERENCE UNITS RANGE LAB MG 1.7-2.3 mg/dL Magnesium 2.3 Performed By: #### CBCDIF, BMP, CRP, MG1, PHOS #### [place] [phone] #### WSR, PROCAL, ENAID, CCP #### [place] [phone] PHOSPHORUS Collected: 09/12/2018 Status: F Source: [place] 5:29 AM [facility] OTHER [place] REPOSITORY TYPE CODE TESTS RESULT OUT OF REFERENCE UNITS RANGE LAB PHOS 2.7-4.8 mg/dL Phosphorus 4.1 Performed By: #### CBCDIF, BMP, CRP, MG1, PHOS #### [place] [phone] #### WSR, PROCAL, ENAID, CCP #### [place] [phone] SED RATE WESTERGREN Collected: 09/12/2018 Status: F Source: [place] 5:29 AM [facility] OTHER CAMPUS REPOSITORY TYPE CODE TESTS RESULT OUT OF REFERENCE UNITS RANGE LAB WSR 0-15 mm/hr Sed Rate High [place] 44 Performed By: #### CBCDIF, BMP, CRP, MG1, PHOS #### [address] [phone] #### WSR, PROCAL, ENAID, CCP #### [place] [address] PROCALCITONIN Collected: 09/12/2018 Status: F Source: [place] 5:29 AM [facility] OTHER [place] REPOSITORY TYPE CODE TESTS RESULT OUT OF REFERENCE UNITS RANGE LAB PROCLT <0.09 ng/mL Procalcitonin <0.06 Result Comment: For a guided interpretation of test results, please visit the Change in Procalcitonin Calculator, [email or web address]. Performed By: #### CBCDIF, BMP, CRP, MG1, PHOS #### [address] [phone] #### WSR, PROCAL, ENAID, CCP #### [place] [address] CAROLYN ANTIBODY PANEL Collected: 09/12/2018 Status: F Source: [place] 5:29 AM [facility] OTHER [place] REPOSITORY TYPE CODE TESTS RESULT OUT OF REFERENCE UNITS RANGE LAB SMIB <1.0 AI Sm Antibody <0.2 Result Comment: NEGATIVE Negative: <1.0 AI Positive: >0.9 AI LAB RNPIB <1.0 AI TRACK SUPERINTENDENT Antibody <0.2 Result Comment: NEGATIVE Negative: <1.0 AI Positive: >0.9 AI LAB SSAIB <1.0 AI SSA Antibody <0.2 Result Comment: NEGATIVE Negative: <1.0 AI Positive: >0.9 AI LAB SSBIB <1.0 AI SSB Antibody <0.2 Result Comment: NEGATIVE Negative: <1.0 AI Positive: >0.9 AI LAB CENTIB <1.0 AI Centromere <0.2 Result Comment: NEGATIVE Negative: <1.0 AI Positive: >0.9 AI LAB SCLIB <1.0 AI Scleroderma IgG Ab <0.2 Result Comment: NEGATIVE Negative: <1.0 AI Positive: >0.9 AI LAB JO1IB <1.0 AI PILY 1 Antibody <0.2 Result Comment: NEGATIVE Negative: <1.0 AI Positive: >0.9 AI LAB RRNPIB <1.0 AI Ribosomal TRACK SUPERINTENDENT <0.2 Result Comment: NEGATIVE Negative: <1.0 AI Positive: >0.9 AI LAB CHRMIB <1.0 AI Chromatin Antibody <0.2 Result Comment: NEGATIVE Negative: <1.0 AI Positive: >0.9 AI Performed By: #### CBCDIF, BMP, CRP, MG1, PHOS #### [address] [phone] #### WSR, PROCAL, ENAID, CCP #### [place] [address] CCP ANTIBODY, IGG Collected: 09/12/2018 Status: F Source: [place] 5:29 AM [facility] REPOSITORY TYPE CODE TESTS RESULT OUT OF REFERENCE UNITS RANGE LAB CCPABG <20 Units High CCP >250 Antibody, IgG Result Comment: < 20 units: Negative 20-39 units: Weak Positive 40-59 units: Moderate Positive > 60 units: Strong Positive The following results were obtained with the [employer] QUANTA Lite CCP3 IgG VERA. Anti-CCP values obtained with different manufacturers' assay methods may not be used interchangeably. The magnitude of the reported IgG levels cannot be correlated to an endpoint titer. Performed By: #### CBCDIF, BMP, CRP, MG1, PHOS #### [address] [phone] #### WSR, PROCAL, ENAID, CCP #### [place] [address] US DVT LOWER FABIÁN Observed: 09/11/2018 Status: F Source: [place] 8:12 PM [facility] REPOSITORY * * *Final Report* * * DATE OF EXAM: Sep 11 2018 8:12PM MDU 1005 - US DVT LOWER FABIÁN / PROCEDURE REASON: Leg DVT, known, no change, follow up * * * * Physician Interpretation * * * * ULTRASOUND OF BILATERAL LEG VEINS WITH COLOR DOPPLER SCANNING HISTORY: Leg DVT, known, no change, follow up COMPARISON: None available. TECHNIQUE: The deep venous system of both legs was evaluated with ruiz scale and color Doppler imaging. Augmentation and compression maneuvers were applied at multiple levels along the deep venous axis. RESULT: There is no evidence of thrombus in the visible deep veins of both lower extremities. The veins respond normally to compression and augmentation maneuvers. Normal venous blood flow noted on doppler exam. The technologist noted stasis of blood flow during real-time scanning of the bilateral deep veins. IMPRESSION: Bilateral deep venous stasis. No deep venous thrombosis in the visualized veins of both legs. Environmental Consultant: PSCB Transcribe Date/Time: Sep 11 2018 8:33P Dictated by : RENETTA OLIVER MD This examination was interpreted and the report reviewed and electronically signed by: RENETTA OLIVER MD on Sep 11 2018 8:34PM EST [id number] EKG Observed: 09/11/2018 Status: F Source: [place] 6:41 PM [facility] OTHER CAMPUS REPOSITORY NAME : DAVID BRICENO PID : [id number] : 1945 Gender : Male Race : ORD : [id number] Procedure Date : Sep 11 2018 18:41:43 Edit Date : Sep 14 2018 12:51:31 Diagnosis:NORMAL SINUS RHYTHM NORMAL ECG WHEN COMPARED WITH ECG OF 04-MAR-2013 15:11, NO SIGNIFICANT CHANGE WAS FOUND Confirmed by JODY MURILLO M.D. ([id number]) on 09/14/2018 12:51:24 PM Ventricular Rate : 69 BPM Atrial Rate : 69 BPM P-R Interval : 154 ms QRS Duration : 96 ms Q-T Interval : 412 ms QTC Calculation(Bezet) : 441 ms P [place] : 20 degrees R [place] : 69 degrees T [place] : 47 degrees Test Reason : SOB Location : 2 : ICU 1 Overread By : JODY MURILLO M.D. Edited By : JODY MURILLO M.D. Referred By : DEVIN BRAGA Acquired by : GEOFF Observed: 09/11/2018 Status: F Source: [place] RESPIRATORY CULT/STAIN 6:30 PM [facility] OTHER CAMPUS REPOSITORY Smear Result - Rare Mixed oral mike No Polymorphonuclear Leukocytes Rare Epithelial cells Culture Result - Many Normal respiratory mike present Performed By: #### RCULST #### [facility] [address] [place], [place] [address] EMERGENCY DEPARTMENT Observed: 09/11/2018 Status: F Source: [place] SUMMARY 5:53 PM [facility] REPOSITORY [facility] Medical Records Department [address] [place] [address] Emergency Department Summary 09/11/18 1129 MR#: [id number] Acct: [id number] Name: DAVID BRICENO . Rep #: [id number] : 1945 73 From: Devin Braga MD PCP: Tati Medina MD Status: DEP ER - ER Visit Summary Date of Service: 09/11/18 Chief Complaint: Shortness of breath History of Present Illness: The patient is a [address] Hein and Dr. Medina. He was admitted from August 24 until yesterday. He was discharged to [facility] yesterday afternoon. He reports that his shortness of breath got much worse this morning. States that severe when he walks around. It is mild at rest. Patient reports he has a cough productive of brown sputum that is chronic and unchanged. He denies any fever or chills. Reports that he has a aching left upper chest pain that is been present for weeks. He states that this only occurs when I breathe heavy. Physical Examination: Vitals: 98.1, 119/77, 95, 19, 82% on 6 L nasal cannula. 92% on a 40% Ventimask.. General: Well-nourished and well-developed. Head: Normocephalic atraumatic. Neck: Supple, no lymphadenopathy. No JVD. Nontender. Cardiovascular: Regular rate and rhythm. No murmurs. Respiratory: Mild respiratory distress. Fine crackles at the bases bilaterally. Abdominal: Soft, nontender, nondistended, normal bowel sounds. No guarding, rebound, or peritoneal signs. Back: Nontender. Extremities: Nontender, no edema. Skin: Normal color, no rash. Neurologic: Alert and oriented 3. Cranial nerves II through XII are intact. Normal strength and sensation. Psych: Normal affect. Test Results: EKG is sinus at 96 with PVC. Its unchanged from August 24. CBC is more for white count 27.3 with 85 segmented neutrophils, 7 lymphocytes, immature granulocytes 1.7%. Chem-7 marked potassium 3.2, glucose 114, calcium of 8.0. Troponin is negative. ABG shows a pH of 7.49 with a CO2 of 29, bicarb of 27.5, PO2 of 59 and a sat of 92% on a 40% Ventimask. Emergency Department Course and Treatment: Patient was treated albuterol Atrovent aerosols. He remained on 40% Ventimask while here. He was given Solu-Medrol IV by EMS prior to arrival. He was given Lasix IV. He was also given his morning medications of Norvasc, aspirin, metoprolol, Protonix, prednisone orally. He is resting comfortably. Treatment Plan: The patient was discussed with Dr. Silva who states that there really is nothing more that we would do for him here. Diuresis is what helped with his pulse ox previously. He suspects that the patient has end-stage pulmonary fibrosis. However, he suggested the patient needs to see his machine accountant to have rheumatoid lung ruled out. Patient was then discussed with Dr. Moise, his machine accountant, who states that Imuran would take months to begin working and he does not have hospital privileges. He feels the patient would not need to see rheumatology as an inpatient. Patient was a scan discussed with Dr. Silva who states that the patient felt does not feel comfortable going back to the senior living that he should be transferred to a tertiary care center for second opinion. I discussed with patient. He has chosen [facility] and will be transferred there. Disposition: Transferred in serious condition. Impression: 1. Pulmonary fibrosis. 2. Hypoxia. This note was generated with Triposo dictation software. It may contain incorrect words, spelling, and punctuation that were not noted in review of the chart prior to signing ED Disposition - Plan for ED Patient: Chief Complaint: Shortness of Breath Referrals: Tati Medina MD [Primary Care Provider] - What to do if you have Problems For any increased pain, shortness of breath, bleeding, nausea or vomiting, chest pain, or any unexpected problems, contact your Primary Care Provider. Call [facility] ([phone]) or report to the closest Emergency Room. Call 911 if necessary. 09/11/18 1753 <Electronically signed by Devin Braga MD> Date Devin Braga MD Cosigner Signature (If Indicated): Date CC: Tati Medina MD PROGRESS Observed: 09/11/2018 Status: COMPLETED Source: [place] 5:23 PM [facility] REPOSITORY HNO ID: [id number] Author: Irma (Robert) ROBERT Ly Service: (none) Author Type: Clinical Small Engine Mechanic Type: Progress Notes Filed: 09/11/2018 5:33 PM Note Text: Radiology Service Progress Note PATIENT NAME: David Briceno DATE OF SERVICE: September 11, 2018 TIME: 5:23 PM PATIENT IDENTITY VERIFICATION COMPLETED USING TWO (2) METHODS: Patient confirmed name verbally and ID band matches.. PATIENT GENDER DATA: Male PATIENT RELEVANT IMPLANT DATA REVIEWED: Not Applicable RADIOLOGY DEPARTMENT: CT; Exam(s) Completed: Chest PERIPHERAL IV DATA: Not applicable SIGNED BY: ROBERT Barrett September 11, 2018 5:[address] CHEST WO IVCON Observed: 09/11/2018 Status: F Source: [place] 5:22 PM [facility] REPOSITORY * * *Final Report* * * DATE OF EXAM: Sep 11 2018 5:22PM [facility] 0541 - CT CHEST WO IVCON / PROCEDURE REASON: Pneumonia, complicated * * * * Physician Interpretation * * * * EXAMINATION: CHEST CT WITHOUT CONTRAST Indication: Pneumonia, complicated Technique: Spiral CT acquisition of the chest from the thoracic inlet to the upper abdomen without contrast. M: [id number] CT Dose-Length Product: 362 mGy*cm CT Dose Reduction Employed: mAs-kVp adjusted based on patient size-age Comparison: No prior CT chest available for comparison. RESULT: Limitations: None. Lines, tubes, and devices: Sternotomy wires. Lung parenchyma and pleura: Central airways are patent. Multifocal bilateral pulmonary infiltrates, superimposed on a background of moderate to severe pulmonary emphysema. No pleural effusion or pneumothorax identified. 5 mm subpleural right middle lobe nodule (image 129). Punctate 2 mm medial left apical nodule (image 38). Thoracic inlet, heart, and mediastinum: The heart is not enlarged. There is no pericardial effusion. Atheromatous changes of the thoracic aorta and coronary arteries. Small hiatal hernia. Subcarinal lymph node measures 1.1 cm in short axis, likely reactive. Evaluation for hilar adenopathy is limited on this unenhanced study. Bones and soft tissues: Degenerative changes of the spine. Upper abdomen: A few water density lesions of the liver and hypodense foci which are too small to characterize. Focal anterior contour bulge along the pancreatic tail (image 181). 9 mm right adrenal adenoma which measures 1 Hounsfield unit. Atheromatous calcification of the partially imaged abdominal aorta. IMPRESSION: Multifocal bilateral pulmonary infiltrates, superimposed on a background of moderate to severe pulmonary emphysema. Findings likely represent multifocal pneumonia. Recommend follow-up to resolution. A few lung nodules measuring up to 5 mm. Incidental Finding: No follow-up imaging for this incidentally detected lung nodule is recommended. If there are risk factors for lung malignancy or if the nodule has suspicious features (eg spiculated or upper lobe location), a follow-up chest CT exam could be obtained in 12 months. Small area of focal contour bulge along the anterior pancreatic tail. Unclear whether this represents a small focus of exophytic pancreatic tissue or a small mass. Nonemergent MRI pancreas with contrast is recommended if clinically feasible. Environmental Consultant: FRANCISCO Transcribe Date/Time: Sep 12 2018 8:04A Dictated by : PETAR NOEL MD This examination was interpreted and the report reviewed and electronically signed by: PETAR NOEL MD on Sep 12 2018 8:13AM EST [id number] HISTORY PHYSICAL Observed: 09/11/2018 Status: COMPLETED Source: [place] 4:57 PM CLINIC OTHER CAMPUS REPOSITORY HNO ID: [id number] Author: Ronda Hi Service: Critical Care Author Type: Physician Type: HANDP Filed: 09/11/2018 5:32 PM Note Text: [facility] [place] STAFF PHYSICIAN NOTE OF PERSONAL INVOLVEMENT IN CARE I have reviewed the history and physical examination obtained and documented by the physician fish hatchery assistant and I personally participated in the fan components. I have discussed the case and management of the patient's care. The following comments revise or confirm relevant fan components of the note. 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 Rheumatoid Arthritis # Hx DVT Aug 2018 PLAN: >> Neuro: Patient is awake and alert, no focal deficits >> Pulm: Patient is not in respiratory distress, SPo2 92% on HF NC 60%. Will wean for Spo2 88-90%. Check ABG. Continue Steroids 20 mg daily for now. Continue Breo and Scheduled breathing treatments. Will consider diuresis according to renal functions. >> CVS: VSS. Check ECHO. Resume home cardiac medications. >> ID: No Need for ABx. Check procalcitonin. Will treat with ABx if indicated. Check Sputum culture. >> Renal: Check CMP. Maintain euvolemia. Monitor UOP >> GI: Start clear liquids and advance tolerated. >> Endo: No history of diabetes. Will follow BS and adjuct accordingly. >> Heme: Xarelto for Hx DVT. Check U/S BLE. Will check CBC. Check ESR, CRP, Anti CCP and Anti CAROLYN. >> PPX: DVT and GI PPx >> Dispo: Stay in ICU for high O2 requirements, Patient/Family Updated: Patient, David Briceno, and Patient's Next of Kin/Point of Contact, Son daughter and , updated regarding the goals of care, medical plan for the day, data warehouse consultant recommendations, medical disposition and current medical condition/prognosis as and if clinically indicated. All questions and concerns were answered and addressed at this juncture. They were notified on September 11, 2018 at 4:57 PM . The duration of the conversation was 15 minutes. This patient has a high probability of sudden, clinically significant deterioration, which requires the highest level of physician preparedness to intervene urgently. I managed/supervised life or organ supporting interventions that required frequent physician assessment. I devoted my full attention to the direct care of this patient for the amount of time indicated below. Time I spent with family or surrogate(s) is included only if the patient was incapable of providing the necessary information or participating in medical decision making. Time devoted to teaching and to any procedures I billed separately is not included. Critical Care Documentation: The patient has the following organ/system impairment(s): Respiratory failure (Acute on Chronic, with Hypoxemia) Time spent providing critical care services: 40 minutes. Ronda Hi MD Pulmonary / CC Staff PAGER: [phone] DATE of SERVICE:09/11/2018 TIME of SERVICE: 4:57 PM SUBJECTIVE: HISTORY OF PRESENT ILLNESS: Mr. Briceno is a 73 yo gentleman who has been transferred to [place] ICU from [facility] ED with complaints of shortness of breath. His past medical history includes pulmonary fibrosis (previously has followed w/Dr Hein in [place]) - undetermined etiology, emphysema, HTN, GERD, DVT (Aug 2018) - on Xarelto prior to admission, recently diagnosed rheumatoid arthritis (not on immunosuppressive tx), CAD S/P CABG in 2005. He is a former smoker, 40-50 pack years, quit in 1996. Patient states that he has had multiple recent admissions to [facility] for pneumonia - once in April, and then most recently in August. Spent several weeks at [facility] in August 2018, during which time he was treated for pneumonia, ?COPD exacerbation, DVTs - started on Xarelto. Patient states he was treated with steroids, antibiotics, bronchodilators. Still had very high FiO2 requirements at discharge. Family reports requiring 15L/min O2 NC with exertion, 6L/min O2 NC at rest. He was discharged to a facility ([facility]) that they were told could accommodate these needs, however upon arrival, it was determined that the facility would be unable to provide this amount of supplemental oxygen, and he was sent back to the emergency department. He reports that has been experiencing shortness of breath, cough that is occasionally productive of brown sputum (occasionally blood tinged). He reports associated left sided pleuritic discomfort. He denies fever/chills, wheeze, abd pain, nausea, vomiting, diarrhea, lower extremity edema, focal neurologic deficits. Patient reports that he was following with Dr. Hein (pulmonary - [place]) for progressively worsening shortness of breath. He was told that he has pulmonary fibrosis, and there had been concern that this could be related to rheumatoid arthritis. He was subsequently referred to rheumatology, and diagnosed with RA several weeks ago. No immunosuppressive therapy has been started. He states he was taking Breo and ProAir at home prior to admission. Patient's family states that he did not require any supplemental oxygen prior to his last hospital admission. He was experiencing dyspnea, however he was still fairly active (ie had been doing yard work, etc). He is a former smoker, 40-50 pack years, quit in 1996. 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 PAST MEDICAL HISTORY Diagnosis Date - Arthritis - Cancer (HCC) Prostate - Coronary artery disease - Heart attack (HCC) - Myocardial infarct (HCC) February 1999, 10/2005 - Staph infection 01/2004 Left shoulder PAST SURGICAL HISTORY Procedure Laterality Date - CHOLECYSTECTOMY HX - EYE SURGERY HX Cataract Surgery Left eye 12/2007, Right eye 01/2018 - HEART SURGERY HX - ORTHOPEDICS SURGERY HX Trigger Finger first finger right and left hand 11/2002,3rd and 4th 05/2003 - PAST SURGICAL HISTORY OF Prostate surgery February 1997 - PAST SURGICAL HISTORY OF Heart Cath-triple by pass 10/2005 - REVISE MEDIAN N/CARPAL TUNNEL SURG Carpal tunnel decomp bilateral Family History Problem Relation Age of Onset - Heart disease Mother - Heart disease Father - Cancer Brother - Heart disease Maternal Grandmother Social History Marital status: Spouse name: Years of education: Number of children: Social History Main Topics Smoking status: Former Smoker Packs/day: 3.00 Years: 46.00 Quit date: 01/28/1997 Smokeless tobacco: Former User Alcohol use: No Drug use: No REVIEW OF SYSTEMS: Constitutional:Negative for fevers/chills, weakness, malaise. HEENT:Negative for frequent or significant headaches, No changes in hearing or vision, no nose bleeds or other nasal problems, SEE HPI RESPIRATORY: See HPI, Positive for shortness of breath, cough. CARDIOVASCULAR: See HPI, Positive for chest pain, leg swelling or palpitations. GASTROINTESTINAL: See HPI Negative for abdominal discomfort, blood in stools or black stools or change in bowel habits GENITOURINARY: No history of dysuria, frequency or incontinence, See HPI MUSCULOSKELETAL: See HPI, Negative for joint pain or swelling, back pain. NEUROLOGIC: Negative for focal neurological deficits, dizziness or syncope. SKIN: Negative for lesions, rash, and itching. HEMATOLOGIC/LYMPHATIC/IMMUNOLOGIC: No easy bruising or swollen glands. ENDOCRINE: Negative for cold or heat intolerance, polyuria, polydipsia. See HPI The remainder of the ROS were reviewed and negative. OBJECTIVE: VITAL SIGNS (last 24hrs min/max): Patient Vitals for the past 24 hrs: Pulse Resp SpO2 09/11/18 1640 78 21 - 09/11/18 1627 77 (!) 34 95 % 09/11/18 1625 79 27 - NET FLUID BALANCE No intake or output data in the 24 hours ending 09/11/18 1710 MEDICATIONS Hospital/inpatient medications reviewed INDWELLING CATHETERS: Central Line: No Arterial Line: No Mcneil Catheter: No Other Lines/Drains: PIV PHYSICAL EXAM: Neurologic: Awake, oriented, Alert, Follows commands and Moving all extremities HEENT: Oral Mucosa: Moist mucous membranes Feeding Tube: No Eyes: Anicteric sclera, EOMI Cardiovascular: Regular rhythm Respiratory: Clear to auscultation. Respirations are unlabored. O2: 60% hi flow Abdomen: Soft and Nontender Extremities: Edema- No. No clubbing or cyanosis. Skin: Abnormalities- No Breakdown- No NUTRITION: Clear liquid diet DATA: Diagnostic tests reviewed for today's visit: Most recent labs and imaging results. PATIENT CHECKLIST ? Are restraints necessary: No ? Deep vein thrombosis prophylaxis administered? Yes - A/C, Xarelto ? Stress ulcer prophylaxis? Yes ? Nasogastric tube? No ? Mcneil catheter necessary? No ? Is central line essential? No ? Plan discussed with assigned RN? Yes ? Family updated within last 24 hours? Yes SIGNATURE: Vashti Ireland PA-C PATIENT NAME: David Briceno DATE: September 11, 2018 TIME: 5:10 PM PROTIME Collected: 09/11/2018 Status: F Source: [place] 4:53 PM CLINIC OTHER CAMPUS REPOSITORY TYPE CODE TESTS RESULT OUT OF RANGE REFERENCE UNITS LAB PSEC 9.7-13.0 sec PT Sec 12.3 LAB INR 0.9-1.3 PT INR 1.2 Result Comment: Vitamin K Antagonist (VKA) Therapeutic Range: INR 2 to 3 (Target INR of 2.5) Note: For patients treated with VKA drugs, such as warfarin, the [place] [employer] 2012 Guideline recommends a therapeutic INR range of 2 to 3 (target INR of 2.5). This recommendation includes high-risk patients with antiphospholipid syndrome with previous arterial or venous thromboembolism, current-generation mechanical or bioprosthetic aortic heart valve replacement. Note: Patients with mechanical aortic valve replacement and additional risk factors for thromboembolic events (atrial fibrillation, previous thromboembolism, LV dysfunction, hypercoagulable conditions) or an older generation mechanical AVR (i.e., ball in-Cage) or any mechanical MVR should have a INR therapeutic range of 2.5 to 3.5 (target INR of 3). Francisco GH, et al. Chest 2012, 141:7S-47S Guerda DA SILVA, et al. [facility] 2017, 70: 252-289 Performed By: #### PT, CMP, CBCDIF #### [facility] [address] [facility] [phone] COMP METABOLIC PANEL Collected: 09/11/2018 Status: F Source: [place] 4:53 PM CLINIC OTHER CAMPUS REPOSITORY TYPE CODE TESTS RESULT OUT OF REFERENCE UNITS RANGE LAB TP 6.3-8.0 g/dL Protein, Total 6.3 LAB ALB 3.9-4.9 g/dL Low Albumin 3.0 LAB CA 8.5-10.2 mg/dL Calcium, Total 8.6 LAB TBIL 0.2-1.3 mg/dL Bilirubin, Total 0.7 LAB ALKP 38-113 U/L Alkaline Phosphatase 56 LAB AST 14-40 U/L AST 20 LAB GLU 74-99 mg/dL Glucose High 185 Result Comment: The [place] Diabetes Association (ADA) provides guidance for cutoff values for fasting glucose and random glucose. The ADA defines fasting as no caloric intake for at least 8 hours. Fas ting plasma glucose results between 100 to 125 mg/dL indicate increased risk for diabetes (prediabetes). Fasting plasma glucose results greater than or equal to 126 mg/dL meet the criteria for diagnosis of diabetes. In the absence of unequivocal hyperglycemia, results should be confirmed by repeat testing. In a patient with classic symptoms of hyperglycemia or hyperglycemic crisis, random plasma glucose results greater than or equal to 200 mg/dL meet the criteria for diagnosis of diabetes. Reference: Standards of Medical Care in Diabetes 2016, [place] [employer] Association. Diabetes Care. 2016.39(Suppl 1). LAB BUN 9-24 mg/dL BUN 16 LAB CRET 0.73-1.22 mg/dL Creatinine Low 0.66 LAB NA 136-144 mmol/L Sodium Low 134 LAB K 3.7-5.1 mmol/L Potassium 3.9 LAB CL 97-105 mmol/L Chloride Low 95 LAB CO2 22-30 mmol/L CO2 25 LAB AGAP 9-18 mmol/L Anion Gap 14 LAB ALT 10-54 U/L ALT 35 LAB GFRAA eGFR- Amer. >60 LAB GFRNAA . eGFR-All Other Races >60 Result Comment: eGFR (Estimated GFR) Units of measure: mL/min/1.73 meters squared eGFR is derived from the reexpressed MDRD Study equation using the following parameters: serum creatinine, age, gender and race. The creatinine assay has been calibrated to be traceable to IDMS. An eGFR <60 mL/min/1.73m2 for >3 months is consistent with chronic kidney disease. Refer to KDOQI guidelines for clinical interpretation. In patients with unstable renal function, e.g. those with acute kidney injury, the eGFR may not accurately reflect actual GFR. Performed By: #### PT, CMP, CBCDIF #### [facility] [address] [place] [address] CBC AND DIFFERENTIAL Collected: 09/11/2018 Status: F Source: [place] 4:53 PM [facility] OTHER CAMPUS REPOSITORY TYPE CODE TESTS RESULT OUT OF REFERENCE UNITS RANGE LAB WBC 3.70-11.00 k/uL WBC High 20.12 LAB RBC 4.20-6.00 m/uL RBC 4.94 LAB HGB 13.0-17.0 g/dL Hemoglobin 14.7 LAB HCT 39.0-51.0 % Hematocrit 44.3 LAB MCV 80.0-100.0 fL MCV 89.7 LAB MCH 26.0-34.0 pG MCH 29.8 LAB MCHC 30.5-36.0 g/dL MCHC 33.2 LAB RDWCV 11.5-15.0 % RDW-CV 14.7 LAB PLTCT 150-400 k/uL Platelet Count 221 LAB MPV 9.0-12.7 fL MPV 10.1 LAB NEUT % Neut% 94 LAB ALYMP % Lymph% 5 LAB AMETA 0 % [place]% High 1 LAB ABNEUT 1.70-7.00 k/uL Abs Neut High 18.91 LAB ABLYM 0.90-4.00 K/uL Abs Lym 1.01 LAB RBCMOR Red Cell Morph SEE COMMENT Result Comment: Normal LAB PLTEST Platelet Platelet Estimate estimate adequate Performed By: #### PT, CMP, CBCDIF #### [facility] [address] [facility] [phone] NT PRO BNP Collected: 09/11/2018 Status: F Source: [place] 4:53 PM CLINIC OTHER CAMPUS REPOSITORY TYPE CODE TESTS RESULT OUT OF REFERENCE UNITS RANGE LAB PBNP <450 pg/mL PRO B Natr 166 Peptide Performed By: #### NTBNP #### [facility] [address] [facility] [phone] XR CHEST 1V FRONTAL Observed: 09/11/2018 Status: F Source: [facility] 4:51 PM [facility] OTHER [place] REPOSITORY * * *Final Report* * * DATE OF EXAM: Sep 11 2018 4:51PM MDX [id number] - XR CHEST 1V FRONTAL PORT / PROCEDURE REASON: Acute respiratory illness * * * * Physician Interpretation * * * * EXAMINATION: CHEST RADIOGRAPH (PORTABLE SINGLE VIEW AP) Exam Date/Time: 09/11/2018 4:51 PM Clinical History: Acute respiratory illness, MQ: [id number] Comparison: 03/04/2013 RESULT: See impression. IMPRESSION: Lines, tubes, and devices: None. Lungs and pleura: Bilateral consolidation seen on the mid and lower left and peripherally in the upper mid and lower right. No definite pleural effusions. Findings are most likely due to pneumonitis. Cardiomediastinal silhouette: Stable cardiomediastinal silhouette. Other: . Environmental Consultant: PSCB Transcribe Date/Time: Sep 11 2018 4:54P Dictated by : RADHA PAIGE MD This examination was interpreted and the report reviewed and electronically signed by: RADHA PAIGE MD on Sep 11 2018 4:55PM EST [id number] NURSING PROG Observed: 09/11/2018 Status: COMPLETED Source: [place] 4:00 PM [facility] OTHER CAMPUS REPOSITORY HNO ID: [id number] Author: Kim Stark (Rn) ALEJO Sam Service: (none) Author Type: Registered Nurse Type: Nursing Progress Note Filed: 09/11/2018 4:15 PM Note Text: Nursing Progress Note Patient Name: David Briceno Patient Location: [facility]/[id number] Transfer Note: Patient transferred into room/unit ICU1. Actions taken: Report received from Sharmila at [place] ED. This note was completed by: Kim Sam RN LACTIC ACID Collected: 09/11/2018 Status: F Source: [place] 2:15 PM [facility] REPOSITORY TYPE CODE TESTS RESULT OUT OF REFERENCE UNITS RANGE LAB L503.6005 0.4-2.0 mmol/L High LACTIC ACID 2.3 Result Comment: Critical Result(s) Called at: 14:58:49 09/11/2018 by: JACK FRIAS TO VIOELTA NEWBY IN ED Performed By: #### L503.6005 #### [facility] [address] [place], [place], [id number] BLOOD GASES BY CPS Collected: 09/11/2018 Status: F Source: [place] 10:21 AM [facility] REPOSITORY TYPE CODE TESTS RESULT OUT OF RANGE REFERENCE UNITS LAB L9000.9990 Normal BLD GAS TYPE ART LAB L9001.1000 Normal SITE R Radial LAB L9001.1010 Normal FRAN TEST POS LAB L9001.1050 O2 Normal Delivery Dev Vent Mask LAB L9001.1074 Normal FI02 50 LAB L9001.1104 Normal Results To HOSP MD LAB L9001.1105 Normal Time Given 1015 LAB L9001.1110 7.35-7.45 High pH - I-STAT 7.49 LAB L9001.1210 35-45 mmHg Normal pCO2 - ISTAT 36.4 LAB L9001.1310 75-100 mmHG Low PO2 I-STAT 59 LAB L9001.2300 22-26 mmol/L High HCO3 ISTAT 27.5 LAB L9001.2400 -2 to +2 mmol/L High BE ISTAT 4 LAB L9001.2415 mmol/L Normal TOTAL CO2 29 ISTAT LAB L9001.2425 95-99 % Low SO2 ISTAT 92 Performed By: #### L9000.0800 #### [facility] Point of Care [address] [place], [place] [address] CBC W/DIFF, AUTOMATED Collected: 09/11/2018 Status: F Source: [place] 10:00 AM [facility] REPOSITORY TYPE CODE TESTS RESULT OUT OF RANGE REFERENCE UNITS LAB L100.1000 4.4-11.0 K/mm3 High WBC 27.3 LAB L100.1200 4.6-6.2 M/mm3 Normal RBC 4.76 LAB L100.1300 13.0-16.5 g/dl Normal HGB 14.5 LAB L100.1400 40-54 % Normal HCT 43.0 LAB L100.1500 80-94 fL Normal MCV 90.3 LAB L100.1600 27.0-32.0 pg Normal MCH 30.5 LAB L100.1700 32-36 g/gl Normal MCHC 33.7 LAB L100.1810 11.6-14.6 % Normal RDW CV 14.6 LAB L100.1820 35.1-43.9 fl High RDW SD 47.1 LAB L100.1900 150-450 K/mm3 Normal PLT 222 LAB L100.2000 6.2-12.0 fl Normal MPV 9.9 LAB L100.2100 47-70 % High NEUT% 85.3 LAB L100.2200 19-41 % Low LY% 6.6 LAB L100.2300 0-10 % Normal MONO% 5.0 LAB L100.2400 0-5 % Normal EO% 1.2 LAB L100.2500 0-1 % Normal BASO% 0.2 LAB L100.2550 0.0-0.9 % High IM GRAN % 1.700 Result Comment: IG% - Immature Granulocytes (promyelocytes, myelocytes and metamyelocytes) > 1% indicates that a LEFT SHIFT is Present. LAB L100.2620 2.0-7.7 X10 3/uL High Absolute Neut 23.3 LAB L100.2720 0.83-4.51 X10 3/ul Normal Absolute Lymph 1.81 Performed By: #### L100.0100 #### [facility] [address] [place], [place], [address] BASIC METABOLIC Collected: 09/11/2018 Status: F Source: [place] PROFILE ([facility]) 10:00 AM [facility] REPOSITORY TYPE CODE TESTS RESULT OUT OF RANGE REFERENCE UNITS LAB L501.0100 74-106 mg/dL High GLU 114 Result Comment: Fasting Glucose result from 100 to 125 mg/dL suggests IMPAIRED HOMEOSTASIS per A.D.A. criteria. Please note revised GLUCOSE reference range effective 2017. LAB L501.1000 7-18 mg/dL Normal BUN 15 LAB L501.1100 0.70-1.30 mg/dL Normal CREAT,SERUM 0.71 Result Comment: The validity of the calculated GFR AND GFRAA in patients over 70 years has not been determined. Clinical correlation is essential. LAB L501.1110 >60 mL/min Normal EST GFR 115 Result Comment: Non- GFR Calc LAB L501.1115 >60 mL/min Normal EST GFR - AA 139 Result Comment: GFR Calc LAB L501.1255 ml/min Normal Estimated CRCL 63.83 LAB L501.1300 10-20 RATIO High BUN/CRE 21.1 LAB L501.2200 8.5-10 mg/dL Low .1 CA 8.0 LAB L501.5300 136-14 mmol/L Normal 5 NA 138 LAB L501.5600 3.5-5. mmol/L Low 1 K 3.2 LAB L501.5900 98-107 mmol/L Normal CL 100 LAB L501.6100 21.0-3 mmol/L Normal 2.0 CO2 29.0 LAB L501.6200 5-15 Normal GAP 9 Performed By: #### L500.2500, L501.4010 #### [facility] [address] [facility] [place], [address] TROPONIN-I Collected: 09/11/2018 Status: F Source: [place] 10:00 AM [facility] REPOSITORY TYPE CODE TESTS RESULT OUT OF RANGE REFERENCE UNITS LAB L501.4010 <0.045 ng/mL Normal < 0.015 TROPONIN-I Result Comment: TROPONIN-I EXPECTED VALUES <0.045 Negative 0.045 - 0.590 Consistent with Cardiac Damage > OR = 0.600 Critical Value Not every elevated troponin is indicative of ND. These values should be used with clinical judgement in examining the patient's clinical picture for diagnosis. To establish a diagnosis of ND versus myocardial injury, there must be a demonstrated rise and/or fall in the troponin values, in addition to ischemic symptoms, EKG changes, new regional wall motion abnormality, and/or angiographical evidence. PLEASE NOTE: REFERENCE RANGES EDITED 18 Performed By: #### L500.2500, L501.4010 #### [facility] [address] [place], [address] LACTIC ACID Collected: 09/11/2018 Status: F Source: [place] 10:00 AM [facility] REPOSITORY Order Comment: Yes/No query for Sepsis Lactate Rule Y TYPE CODE TESTS RESULT OUT OF RANGE REFERENCE UNITS LAB L503.6005 0.4-2.0 mmol/L Normal LACTIC ACID 2.0 Result Comment: Critical Result(s) Called at: 11:00:43 09/11/2018 by: JACK FRIAS to christina in ed Performed By: #### L503.6005 #### [facility] [address] [place], [address] CHEST PA AND LATERAL Observed: 09/11/2018 Status: F Source: [place] 9:55 AM [facility] REPOSITORY [facility] Imaging Services [address] [place] [address] Chest PA and Lateral MR#: [id number] Acct: [id number] Name: DAVID BRICENO Sr. Rep #: [id number] : 1945 M 73 From: Joseph Sheriff MD PCP: Tati Medina MD Status: REG ER Study: Chest PA and Lateral Date of Exam: 09/11/18 Exam# [id number] Ordering Dr: Devin Braga MD STUDY: X-RAY CHEST REASON FOR EXAM: Male, 73 years old. Shortness of breath/dyspnea. History of emphysema. TECHNIQUE: AP and lateral views of the chest. COMPARISON: Comparison is made with prior study dated August 30, 2018. FINDINGS: EKG electrodes are seen. Stable increased interstitial markings with areas of confluence worse in the lateral aspects of the right mid lungs is unchanged. This is in keeping with chronic interstitial fibrosis. There is no demonstrated pleural abnormality. Sternal cerclage wires and vascular clips are present from a prior sternotomy and coronary artery bypass graft procedure (CABG). Normal mediastinum and carlos. Normal visualized pulmonary arteries. There is atherosclerotic calcification of the aortic arch with tortuosity. There are diffuse degenerative changes of the visualized thoracic spine. Normal visualized ribs, clavicles, and shoulders. There is no demonstrated abnormality of the visualized soft tissue structures of the upper abdomen. RAD/Chest PA and Lateral IMPRESSION: Stable examination. Findings in keeping with chronic interstitial fibrosis. Electronically Signed: Joseph Sheriff MD at 10:54 EST Tel [phone], Service support , CC: Tati Medina MD; Devin Braga MD Environmental Consultant: Signed 12 LEAD ELECTROCARDIOGRAM Observed: 09/10/2018 Status: F Source: [place] 2:13 PM [facility] REPOSITORY [facility] Cardiovascular Services [address] [place] [id number] 12 Lead EKG 09/07/18 1409 MR#: [id number] Acct: [id number] Name: DAVID BRICENO Sr. Rep #: [id number] : 1945 73 From: Clinton Rutledge MD Attending Dr: David Yanez MD Status: ADM IN Ordering Dr: David Yanez MD Date: 09/07/18 Location: [facility] Sex: M C Admitted: 08/24/18 Test Reason : CP Blood Pressure : / mmHG Vent. Rate : 081 BPM Atrial Rate : 081 BPM P-R Int : 146 ms QRS Dur : 096 ms QT Int : 382 ms P-R-T Axes : 033 -09 011 degrees QTc Int : 443 ms Normal sinus rhythm Inferior infarct , age undetermined, cannot be excluded Abnormal ECG Confirmed by ALEE HERNANDEZ, CLINTON ([id number]), communications editor ALONZO MALONEY ([id number]) on 09/10/2018 2:13:01 PM Referred By: DAVID Confirmed By:CLINTON RUTLEDGE MD 09/10/18 1413 Date Clinton Rutledge MD CC: David Yanez MD; Tati Medina MD Signed DISCHARGE SUMMARY Observed: 09/10/2018 Status: F Source: [place] 1:09 PM [facility] REPOSITORY [facility] Medical Records Department [address] [address] Discharge Summary 09/10/18 1223 MR#: [id number] Acct: [id number] Name: DAVID BRICENO Sr. Rep #: [id number] : 1945 73 From: Irene Estrella HAND BUFFER-C PCP: Tati Medina MD Status: ADM IN Y Location: [place] [address] <Irene Estrella - Last Filed: 09/10/18 12:42> Discharge Date and Diagnosis Date of Admission: 08/24/18 Date of Discharge: 09/10/18 - Primary Discharge Diagnosis Active and Suspected Problems (Last Reviewed 08/24/18 @ 03:05 by Andrés Mane MD) 1. Acute on chronic hypoxic respiratory failure, multifactorial due to nonspecific interstitial pneumonia versus idiopathic pulmonary fibrosis 2. Acute on chronic diastolic CHF 3. Hypokalemia 4. Chronic cor pulmonale due to underlying chronic lung disease 5. Rheumatoid arthritis 6. MGUS 7. Coronary artery disease with history of CABG 8. Hypertension 9. Bilateral lower extremity DVTs, presumed PE 10. Physical deconditioning, debility - Secondary Discharge Diagnosis Chronic Problems (Last Reviewed 08/24/18 @ 03:05 by Andrés Mane MD) History of ND (myocardial infarction) (Chronic) CAD (coronary artery disease) (Chronic) Pulmonary fibrosis (Chronic) COPD (chronic obstructive pulmonary disease) (Chronic) Hospital Course and Treatment Imaging Results: Diagnostic Data Chest CT 08/24/18 11:20 IMPRESSION: Changes compatible with a progressive pulmonary fibrosis with evidence of honeycombing and bronchiectasis. This is worse in the right hemithorax. Enlarged bilateral axillary lymph nodes. Electronically Signed: Joseph Sheriff MD at 12:53 EST Tel [phone], Service support , Chest X-Ray 08/30/18 07:38 IMPRESSION: Persistent bilateral peripheral mixed interstitial and air space opacities some of which maybe chronic. Acute disease unfortunately cannot be excluded. Electronically Signed: Carmencita Maloney MD at 8:23 EST , Service support , Dr. Silva- Pulmonary Medicine Operations: None Procedures: 2-D Echocardiogram Summary of Care Provided: The patient is a 73 year old M admitted 08/24/2018 due to shortness of breath. 1. Acute on chronic hypoxic respiratory failure, multifactorial due to nonspecific interstitial pneumonia versus idiopathic pulmonary fibrosis- pulmonary medicine consulted. CT of chest shows progressive pulmonary fibrosis with evidence of honeycombing and bronchiectasis. Patient will continue prednisone taper at discharge. Continue home inhaler regimen. 2. Acute on chronic diastolic CHF-echocardiogram with EF 60%, stage I diastolic dysfunction. Pulmonary artery systolic pressure 44 mmHg. Continue Lasix at discharge. 3. Hypokalemia-resolved. 4. Chronic cor pulmonale due to underlying chronic lung disease 5. Rheumatoid arthritis-continue outpatient follow-up with rheumatology and [place] as scheduled 10/12/2017. 6. MGUS-continues outpatient follow up with oncology. 7. Coronary artery disease with history of CABG-continue aspirin, beta-gustabo. 8. Hypertension-stable, continue current regimen. 9. Bilateral lower extremity DVTs, presumed PE-patient has allergy to contrast, CTA unable to be performed. Lower extremity Dopplers positive for DVTs. Patient will continue Xarelto 15 mg twice daily for 21 days followed by Xarelto 20 mg daily. 10. Physical deconditioning, debility- PT/OT. SN[facility] at [place]. General: Alert, Oriented x3, Cooperative, No apparent distress HEENT: Atraumatic, PERRLA, Normocephalic Oral: No Gingival or Mucosal Lesions/ Ulcerations Neck: Supple, No Nodes, Trachea Midline Lungs: No rhonchi, No wheeze, Diminished Cardiovascular: Regular rate, Regular Rhythm, Normal S1, Normal S2, No murmurs Abdomen: Bowel Sounds Present, Soft, Non Tender, Non-Distended Extremities: No cyanosis, No edema, Clubbing Skin: No breakdown Musculoskeletal: No Tenderness to Palpation of Joints or Extremities, No Muscle Wasting Lymphatic: No Cervical, Supraclavicular, or Inguinal Adenopathy Neurological: Cranial nerves II-XII grossly intact, Neuro grossly intact Psych/Mental Status: Alert and oriented to time, place, person, mood and affect Patient seen and examined prior to discharge. Physical assessment as noted above. Patient is stable for discharge with follow up recommendations as noted above. This patient was seen by ERINN Lobato under the supervision of Dr. Yanez. - Physical Exam Vital Signs Temp Pulse Resp BP Pulse Ox 98.3 F 98 18 111/64 93 09/10/18 12:02 09/10/18 12:02 09/10/18 12:02 09/10/18 12:02 09/10/18 12:02 Oxygen Flow Rate (L/min) [ 15 AMBULATION with Oxygen] Oxygen Flow Rate (L/min) 6 Oxygen Delivery Method Nasal Cannula Weight: 183 lb 6.793 oz Body Mass Index (BMI) 28.9 Intake and Output for Last 24 Hours Intake Total 1560 / 1560 1160 / 1160 860 / 860 Output Total 2340 / 2340 2175 / 2175 1175 / 1175 Balance -780 / -780 -1015 / -1015 -315 / -315 Home Medications: Medications to take at Discharge Amlodipine [Norvasc] 10 mg PO DAILY 05/04/18 Aspirin E.C. [Ecotrin] 81 mg PO DAILY@0800 05/04/18 Benzonatate [Tessalon Perle] 200 mg PO TID PRN PRN #20 cap 05/04/18 Cholecalciferol (Vitamin D3) [Vitamin D3] 5,000 unit PO DAILY 05/04/18 Hydroxyzine Pamoate 25 mg PO QHS PRN 05/04/18 L.acidoph,Paracasei, B.lactis [Probiotic] 10 tab PO DAILY 05/04/18 Metoprolol Tartrate 25 mg PO BID 05/04/18 Multivitamin [Daily Multiple Vitamin] 1 ea PO DAILY 05/04/18 Omeprazole 20 mg PO DAILY 05/04/18 albuterol sulfate HFA 90 mcg/actuation aerosol inhaler 2 puff INHALATION Q4H PRN #8.5 g 08/17/18 budesonide-formoterol HFA 160 mcg-4.5 mcg/actuation aerosol inhaler 2 puff INHALATION BID #1 ea 08/17/18 mometasone-formoterol HFA 200 mcg-5 mcg/actuation aerosol inhaler 2 puff INHALATION BID #13 g 08/24/18 Furosemide [Lasix] 40 mg PO BID@1000,1800 tablet 09/10/18 Ipratropium Sandy 0.06% [ATROVENT NASAL SPRAY] 2 spray NASAL BID nasal.sry 09/10/18 Rivaroxaban [Xarelto] 15 mg PO BIDCM tablet 09/10/18 predniSONE tablet 30 mg PO DAILY@0800 tablet 09/10/18 Primary Care Physician: Tati Medina MD [Primary Care Provider] - Please follow up with your Primary Care Physician in: 1 Week Please Follow Up With: dAryan Silva DO When: 1-2 Weeks Please Follow Up With: Dr. Moise When: As scheduled 10/12/17. Please Follow Up With: Clinton Sol DO When: As scheduled [facility] Minutes spent on discharge:: 35 Patient Condition:: Stable Medical Necessity - Tobacco Use Smoking Status: Former smoker Meaningful Use Info Meaningful Use Diagnoses (Choose all that apply): CHF - CHF ALYSSA/ARB ordered at discharge?: No Reason ALYSSA/ARB not ordered?: Allergy Documented LVEF (%): 60 - Not indicated due to normal EF <David Yanez - Last Filed: 09/10/18 13:08> Discharge Date and Diagnosis - Secondary Discharge Diagnosis Chronic Problems (Last Reviewed 08/24/18 @ 03:05 by Andrés Mane MD) History of ND (myocardial infarction) (Chronic) CAD (coronary artery disease) (Chronic) Pulmonary fibrosis (Chronic) COPD (chronic obstructive pulmonary disease) (Chronic) Hospital Course and Treatment Summary of Care Provided: This patient was seen in conjunction with ERINN Lobato . I have independently interviewed and examined the patient and reviewed pertinent historical, laboratory, and other data. Please refer to ERINN Lobato note for details of this patient's presentation, findings, and recommendations. I have reviewed ERINN Lobato note and concur with documented findings. In brief,Patient is a 73-year-old gentleman with history of rheumatoid arthritis, chronic hypoxic respiratory failure who presented with worsening shortness of breath.. An assessment of acute hypoxic respiratory failure was made admitted to the intensive care unit managed on noninvasive ventilation stabilized and subsequently transferred to the progressive care unit Assessment: 1. Acute on chronic hypoxic respiratory failure multifactorial including suspected nonspecific interstitial pneumonia versus idiopathic pulmonary fibrosis. 2. Acute on chronic diastolic heart failure 3. Chronic cor pulmonale secondary to patient underlying lung disease 5. Hypokalemia 6. Coronary artery disease with previous CABG in the past 7. 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 Rheumatoid arthritis 9. Hypertension 10. 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 Physical deconditioning Hospital course: As detailed above by Irene PLASENCIA - Physical Exam Vital Signs Temp Pulse Resp BP Pulse Ox 98.3 F 98 18 111/64 93 09/10/18 12:02 09/10/18 12:02 09/10/18 12:02 09/10/18 12:02 09/10/18 12:02 Oxygen Flow Rate (L/min) [ 15 AMBULATION with Oxygen] Oxygen Flow Rate (L/min) 6 Oxygen Delivery Method Nasal Cannula Weight: 83.2 kg Body Mass Index (BMI) 28.9 Intake and Output for Last 24 Hours Intake Total 1560 / 1560 1160 / 1160 860 / 860 Output Total 2340 / 2340 2175 / 2175 1175 / 1175 Balance -780 / -780 -1015 / -1015 -315 / -315 Code Visit Inpatient E AND M: [id number] Disch Hosp 09/10/18 1243 <Electronically signed by Irene LOWC> Date Irene LOWC 09/10/18 1309<Electronically signed by David Yanez MD> Cosigner Signature (if applicable): Date David Yanez MD CC: ERINN Estrella; David Yanez MD; Tati Medina MD Signed TRANSFER TO [facility] Observed: 09/10/2018 Status: F Source: [facility] 12:41 PM [facility] REPOSITORY [facility] Medical Records Department [address] [place] [id number] Transfer to Extended Care MR#: [id number] Acct: [id number] Name: DAVID BRICENO Sr. Rep #: [id number] : 1945 73 From: Irene LOWC PCP: Tati Medina MD Status: ADM IN DAVID BRICENO Sr. (Patient) (Health Ins. Claim No.) (Day of Discharge to Facility) Certification of patient admission REQUIRED AT TIME OF ADMISSION. I CERTIFY THAT POST-HOSPITAL ECF SERVICES ARE REQUIRED TO BE GIVEN ON AN IN-PATIENT BASIS BECAUSE OF THE ABOVE NAMED PATIENT'S NEED FOR CARE HOME CARE ON A CONTINUING BASIS FOR THE CONDITION(S) FOR WHICH HE/SHE WAS RECEIVING IN-PATIENT HOSPITAL SERVICES PRIOR TO HIS/HER TRANSFER TO THE F. 09/10/18 1241 <Electronically signed by David Yanez MD> Date: - Diet 08/24/18 03:38 Diet: Cardiac/Low Cholesterol Food consistency:: Regular Liquid Consistency:: Regular/Thin - Routine Orders/Code Status Enema Type: Fleetz Enema Frequency: Daily PRN Suppository Type: Dulcolax 10mg Suppository Frequency: Daily PRN O2 Liters per Minute: 2-6 O2 Frequency: Continuous Keep PO Greater than or Equal to (%): 90 Routine Lab Work: CBC, BMP, - - Q Week Code Status: Full Code - Suggestions for Active Care Change Position every (hours): 2 Times a day to sit in chair: 3 - Therapies Physical Therapy: Eval and Treat Occupational Therapy: Eval and Treat - Problem/Diagnosis (1) Community acquired pneumonia Status: Acute Current Visit: Yes (2) Hypoxemia Status: Acute Current Visit: Yes (3) CAD (coronary artery disease) Status: Chronic Current Visit: No (4) COPD (chronic obstructive pulmonary disease) Status: Chronic Current Visit: No (5) DVT (deep venous thrombosis) Status: Acute Current Visit: Yes - Allergies/Procedures Done in Hospital Allergies/Adverse Reactions: Allergies amoxicillin [From Augmentin] Allergy (Verified 08/24/18 01:11) Other I GET SWEATY AND CRAZY. clavulanic acid [From Augmentin] Allergy (Verified 08/24/18 01:11) Other I GET SWEATY AND CRAZY. hydrocodone Allergy (Verified 08/24/18 01:11) Other I GET SWEATY AND CRAZY. Iodinated Contrast- Oral and IV Dye [DYEE] Allergy (Verified 08/24/18 01:11) Angioedema naproxen Allergy (Verified 08/24/18 01:11) Other I GET SWEATY AND CRAZY. prednisone Allergy (Verified 08/24/18 01:11) Other I GET SWEATY AND CRAZY. Procedures: 2-D Echocardiogram - Type of Care/Length of Stay Estimated LOS: Convalescent Care Less Than 30 days Type of Care Needed: Skilled Rehab Potential: Fair Prognosis: Fair - Additional Orders/Day of Discharge H AND P will serve as current which was dated: 08/24/18 Day of Discharge: 09/10/18 - Dietary and Speech Recommendations Dietitian Recommendations/Changes: Consider cardiac/carbohydrate- controlled diet as needed if blood glucose remains elevated. Will d/c ensure pudding at breakfast d/t improved po intake - continue supplements at lunch and dinner. - Follow Up Care Primary Care Physician: Tati Medina MD [Primary Care Provider] - Please follow up with your Primary Care Physician in: 1 Week Please Follow Up With: Adryan Silva DO When: 1-2 Weeks Please Follow Up With: Dr. Moise When: As scheduled 10/12/17. 09/10/18 1220 <Electronically signed by Irene LOWC> Date Irene LOWC 09/10/18 1241<Electronically signed by David Yanez MD> Cosigner Signature: Date David Yanez MD CC: Adryan Silva D.O.; Tati Medina MD BASIC METABOLIC Collected: 09/08/2018 Status: F Source: [place] PROFILE (BMP) 7:00 AM [facility] REPOSITORY TYPE CODE TESTS RESULT OUT OF RANGE REFERENCE UNITS LAB L501.0100 74-106 mg/dL Normal GLU 75 Result Comment: Please note revised GLUCOSE reference range effective 2017. LAB L501.1000 7-18 mg/dL Normal BUN 13 LAB L501.1100 0.70-1.30 mg/dL Low CREAT,SERUM 0.64 Result Comment: The validity of the calculated GFR AND GFRAA in patients over 70 years has not been determined. Clinical correlation is essential. LAB L501.1110 >60 mL/min Normal EST GFR 131 Result Comment: Non- GFR Calc LAB L501.1115 >60 mL/min Normal EST GFR - AA 158 Result Comment: GFR Calc LAB L501.1255 ml/min Normal Estimated CRCL 63.83 LAB L501.1300 10-20 RATIO High BUN/CRE 20.5 LAB L501.2200 8.5-10 mg/dL Low .1 CA 8.2 LAB L501.5300 136-14 mmol/L Normal 5 NA 139 LAB L501.5600 3.5-5. mmol/L Normal 1 K 3.6 LAB L501.5900 98-107 mmol/L Normal CL 100 LAB L501.6100 21.0-3 mmol/L Normal 2.0 CO2 32.0 LAB L501.6200 5-15 Normal GAP 7 Performed By: #### L500.2500 #### [facility] [address] [place], [address] TROPONIN-I Collected: 09/07/2018 Status: F Source: [place] 2:32 PM [facility] REPOSITORY Order Comment: 'TROP' Serial specimen #1, #2 or #3: 1 TYPE CODE TESTS RESULT OUT OF RANGE REFERENCE UNITS LAB L501.4010 <0.045 ng/mL Normal < 0.015 TROPONIN-I Result Comment: TROPONIN-I EXPECTED VALUES <0.045 Negative 0.045 - 0.590 Consistent with Cardiac Damage > OR = 0.600 Critical Value Not every elevated troponin is indicative of ND. These values should be used with clinical judgement in examining the patient's clinical picture for diagnosis. To establish a diagnosis of ND versus myocardial injury, there must be a demonstrated rise and/or fall in the troponin values, in addition to ischemic symptoms, EKG changes, new regional wall motion abnormality, and/or angiographical evidence. PLEASE NOTE: REFERENCE RANGES EDITED 18 Performed By: #### L501.4010 #### [facility] [address] [facility] [place], [address] BASIC METABOLIC Collected: 09/07/2018 Status: F Source: [place] PROFILE (BMP) 5:15 AM [facility] REPOSITORY TYPE CODE TESTS RESULT OUT OF RANGE REFERENCE UNITS LAB L501.0100 74-106 mg/dL Low GLU 72 Result Comment: Please note revised GLUCOSE reference range effective 2017. LAB L501.1000 7-18 mg/dL Normal BUN 14 LAB L501.1100 0.70-1.30 mg/dL Low CREAT,SERUM 0.69 Result Comment: The validity of the calculated GFR AND GFRAA in patients over 70 years has not been determined. Clinical correlation is essential. LAB L501.1110 >60 mL/min Normal EST GFR 120 Result Comment: Non- GFR Calc LAB L501.1115 >60 mL/min Normal EST GFR - AA 145 Result Comment: GFR Calc LAB L501.1255 ml/min Normal Estimated CRCL 63.83 LAB L501.1300 10-20 RATIO High BUN/CRE 20.4 LAB L501.2200 8.5-10 mg/dL Low .1 CA 7.9 LAB L501.5300 136-14 mmol/L Normal 5 NA 139 LAB L501.5600 3.5-5. mmol/L Normal 1 K 3.6 LAB L501.5900 98-107 mmol/L Normal CL 99 LAB L501.6100 21.0-3 mmol/L Normal 2.0 CO2 31.0 LAB L501.6200 5-15 Normal GAP 9 Performed By: #### L500.2500 #### [facility] [address], [address] CBC W/DIFF, AUTOMATED Collected: 09/07/2018 Status: C Source: [place] 5:15 AM [facility] REPOSITORY TYPE CODE TESTS RESULT OUT OF RANGE REFERENCE UNITS LAB L100.3100 MANUAL DIFF Normal CELLS COUNTED 100 LAB L100.3200 47-70 % High 78 SEGS LAB L100.3800 19-41 % 21 Normal LYMPH LAB L100.3900 0-10 % 1 Normal MONOCYTE LAB L100.1000 4.4-11.0 K/mm3 High WBC 25.8 LAB L100.1200 4.6-6.2 M/mm3 Normal RBC 4.66 LAB L100.1300 13.0-16.5 g/dl Normal HGB 13.7 LAB L100.1400 40-54 % Normal HCT 41.5 LAB L100.1500 80-94 fL Normal MCV 89.1 LAB L100.1600 27.0-32.0 pg Normal MCH 29.4 LAB L100.1700 32-36 g/gl Normal MCHC 33.0 LAB L100.1810 11.6-14.6 % Normal RDW CV 13.7 LAB L100.1820 35.1-43.9 fl High RDW SD 44.3 LAB L100.1900 150-450 K/mm3 Normal PLT 216 LAB L100.2000 6.2-12.0 fl Normal MPV 10.0 LAB L100.2620 2.0-7.7 X10 3/uL High Absolute Neut 20.1 LAB L100.2720 0.83-4.51 X10 3/ul High Absolute Lymph 5.42 LAB L100.9900 Normal PATH REV Reviewed Result Comment: Neutrophilic leukocytosis. Clinical correlation necessary. Mason Baldwin M.D. 09/08/18 AMENDED REPORT 09/08/18 1500 PATH REV previously reported as: February Performed By: #### L100.0100 #### [facility] [address] [place], [place], [id number] CBC W/DIFF, AUTOMATED Collected: 09/05/2018 Status: C Source: [place] 5:46 AM [facility] REPOSITORY TYPE CODE TESTS RESULT OUT OF RANGE REFERENCE UNITS LAB L100.1000 4.4-11.0 K/mm3 High WBC 28.0 LAB L100.1200 4.6-6.2 M/mm3 Normal RBC 4.86 LAB L100.1300 13.0-16.5 g/dl Normal HGB 14.5 LAB L100.1400 40-54 % Normal HCT 43.7 LAB L100.1500 80-94 fL Normal MCV 89.9 LAB L100.1600 27.0-32.0 pg Normal MCH 29.8 LAB L100.1700 32-36 g/gl Normal MCHC 33.2 LAB L100.1810 11.6-14.6 % Normal RDW CV 13.5 LAB L100.1820 35.1-43.9 fl High RDW SD 44.3 LAB L100.1900 150-450 K/mm3 Normal PLT 241 LAB L100.2000 6.2-12.0 fl Normal MPV 9.9 LAB L100.3100 MANUAL DIFF Normal CELLS COUNTED 100 LAB L100.3200 47-70 % 69 Normal SEGS LAB L100.3300 0-5 % 4 Normal BAND LAB L100.3400 0-1 % High 4 META LAB L100.3800 19-41 % 22 Normal LYMPH LAB L100.4000 0-5 % 1 Normal EOS LAB L100.2620 2.0-7.7 X10 3/uL High Absolute Neut 21.6 LAB L100.2720 0.83-4.51 X10 3/ul High Absolute Lymph 6.16 LAB L100.9900 Normal PATH REV Reviewed Result Comment: Leukocytosis and Neutrophilic left shift. Clinical correlation necessary. Mason Baldwin M.D. 09/08/18 AMENDED REPORT 09/08/18 1440 PATH REV previously reported as: February jaz Performed By: #### L100.0100 #### [facility] [address] [place], [address] BASIC METABOLIC Collected: 09/05/2018 Status: F Source: [place] PROFILE ([facility]) 5:46 AM [facility] REPOSITORY TYPE CODE TESTS RESULT OUT OF RANGE REFERENCE UNITS LAB L501.0100 74-106 mg/dL Normal GLU 80 Result Comment: Please note revised GLUCOSE reference range effective 2017. LAB L501.1000 7-18 mg/dL High BUN 19 LAB L501.1100 0.70-1.30 mg/dL Normal CREAT,SERUM 0.80 Result Comment: The validity of the calculated GFR AND GFRAA in patients over 70 years has not been determined. Clinical correlation is essential. LAB L501.1110 >60 mL/min Normal EST GFR 100 Result Comment: Non- GFR Calc LAB L501.1115 >60 mL/min Normal EST GFR - AA 121 Result Comment: GFR Calc LAB L501.1255 ml/min Normal Estimated CRCL 79.78 LAB L501.1300 10-20 RATIO High BUN/CRE 23.7 LAB L501.2200 8.5-10 mg/dL Low .1 CA 8.0 LAB L501.5300 136-14 mmol/L Normal 5 NA 138 LAB L501.5600 3.5-5. mmol/L Low 1 K 3.4 LAB L501.5900 98-107 mmol/L Low CL 96 LAB L501.6100 21.0-3 mmol/L High 2.0 CO2 34.0 LAB L501.6200 5-15 Normal GAP 8 Performed By: #### L500.2500 #### [facility] [address] [facility] [place], [address] 12 LEAD ELECTROCARDIOGRAM Observed: 09/04/2018 Status: F Source: [place] 9:15 AM [facility] REPOSITORY [facility] Cardiovascular Services [address] [place] [address] 12 Lead EKG 08/24/18 0109 MR#: [id number] Acct: [id number] Name: DAVID BRICENO Sr. Rep #: [id number] : 1945 73 From: Dmitriy Pride MD Attending Dr: Jaqueline Hernandez MD Status: ADM IN Ordering Dr: Butch Badillo DO Date: 08/24/18 Location: U Sex: M C Admitted: 08/24/18 Test Reason : SOB Blood Pressure : / mmHG Vent. Rate : 108 BPM Atrial Rate : 108 BPM P-R Int : 152 ms QRS Dur : 094 ms QT Int : 344 ms P-R-T Axes : 048 016 -01 degrees QTc Int : 460 ms Sinus tachycardia with frequent Premature ventricular complexes Possible Left atrial enlargement Inferior infarct , age undetermined Abnormal ECG Confirmed by DMITRIY PRIDE MD ([id number]), communications editor ALONZO MALONEY ([id number]) on 08/26/2018 1:10:08 PM Referred By: Tati Medina Confirmed By:DMITRIY PRIDE MD 08/26/18 1310 Date Dmitriy Pride MD CC: Jaqueline Hernandez MD; Tati Medina MD; Butch Hammond BASIC METABOLIC Collected: 09/04/2018 Status: F Source: [place] PROFILE (BMP) 6:26 AM [facility] REPOSITORY TYPE CODE TESTS RESULT OUT OF RANGE REFERENCE UNITS LAB L501.0100 74-106 mg/dL Normal GLU 78 Result Comment: Please note revised GLUCOSE reference range effective 2017. LAB L501.1000 7-18 mg/dL High BUN 21 LAB L501.1100 0.70-1.30 mg/dL Normal CREAT,SERUM 0.79 Result Comment: The validity of the calculated GFR AND GFRAA in patients over 70 years has not been determined. Clinical correlation is essential. LAB L501.1110 >60 mL/min Normal EST GFR 101 Result Comment: Non- GFR Calc LAB L501.1115 >60 mL/min Normal EST GFR - AA 122 Result Comment: GFR Calc LAB L501.1255 ml/min Normal Estimated CRCL 63.83 LAB L501.1300 10-20 RATIO High BUN/CRE 26.5 LAB L501.2200 8.5-10 mg/dL Low .1 CA 7.8 LAB L501.5300 136-14 mmol/L Normal 5 NA 137 LAB L501.5600 3.5-5. mmol/L Normal 1 K 3.7 LAB L501.5900 98-107 mmol/L Low CL 96 LAB L501.6100 21.0-3 mmol/L High 2.0 CO2 35.0 LAB L501.6200 5-15 Normal GAP 6 Performed By: #### L500.2500 #### [facility] [address] [place], [address] BASIC METABOLIC Collected: 09/03/2018 Status: F Source: [place] PROFILE (BMP) 5:45 AM [facility] REPOSITORY TYPE CODE TESTS RESULT OUT OF RANGE REFERENCE UNITS LAB L501.0100 74-106 mg/dL Normal GLU 80 Result Comment: Please note revised GLUCOSE reference range effective 2017. LAB L501.1000 7-18 mg/dL High BUN 26 LAB L501.1100 0.70-1.30 mg/dL Low CREAT,SERUM 0.68 Result Comment: The validity of the calculated GFR AND GFRAA in patients over 70 years has not been determined. Clinical correlation is essential. LAB L501.1110 >60 mL/min Normal EST GFR 120 Result Comment: Non- GFR Calc LAB L501.1115 >60 mL/min Normal EST GFR - AA 145 Result Comment: GFR Calc LAB L501.1255 ml/min Normal Estimated CRCL 63.83 LAB L501.1300 10-20 RATIO High BUN/CRE 38.0 LAB L501.2200 8.5-10 mg/dL Low .1 CA 7.8 LAB L501.5300 136-14 mmol/L Normal 5 NA 138 LAB L501.5600 3.5-5. mmol/L Low 1 K 3.4 LAB L501.5900 98-107 mmol/L Low CL 97 LAB L501.6100 21.0-3 mmol/L High 2.0 CO2 33.0 LAB L501.6200 5-15 Normal GAP 8 Performed By: #### L500.2500, L501.2300, L501.5200 #### [facility] [address] [place], [place], [id number] PHOSPHORUS Collected: 09/03/2018 Status: F Source: [place] 5:45 AM [facility] REPOSITORY TYPE CODE TESTS RESULT OUT OF RANGE REFERENCE UNITS LAB L501.2300 2.5-4.9 mg/dL Normal PHOS 3.5 Performed By: #### L500.2500, L501.2300, L501.5200 #### [facility] [address] [place], [place], [id number] MAGNESIUM Collected: 09/03/2018 Status: F Source: [place] 5:45 AM [facility] REPOSITORY TYPE CODE TESTS RESULT OUT OF RANGE REFERENCE UNITS LAB L501.5200 1.6-2.6 mg/dL Normal MG 2.3 Performed By: #### L500.2500, L501.2300, L501.5200 #### [facility] [place], [address] CBC W/DIFF, AUTOMATED Collected: 09/03/2018 Status: C Source: [place] 5:45 AM [facility] REPOSITORY TYPE CODE TESTS RESULT OUT OF RANGE REFERENCE UNITS LAB L100.1000 4.4-11.0 K/mm3 High WBC 25.2 LAB L100.1200 4.6-6.2 M/mm3 Normal RBC 5.02 LAB L100.1300 13.0-16.5 g/dl Normal HGB 15.1 LAB L100.1400 40-54 % Normal HCT 45.0 LAB L100.1500 80-94 fL Normal MCV 89.6 LAB L100.1600 27.0-32.0 pg Normal MCH 30.1 LAB L100.1700 32-36 g/gl Normal MCHC 33.6 LAB L100.1810 11.6-14.6 % Normal RDW CV 13.8 LAB L100.1820 35.1-43.9 fl High RDW SD 44.9 LAB L100.1900 150-450 K/mm3 Normal PLT 310 LAB L100.2000 6.2-12.0 fl Normal MPV 10.2 LAB L100.3100 MANUAL DIFF Normal CELLS COUNTED 100 LAB L100.3200 47-70 % High 81 SEGS LAB L100.3800 19-41 % Low 10 LYMPH LAB L100.3900 0-10 % 8 Normal MONOCYTE LAB L100.4000 0-5 % 1 Normal EOS LAB L100.5500 ADEQ Normal PLT EST ADEQUATE LAB L100.7000 NORM C AND C NORMAL Normal RED CELL MORPH NORM C+C LAB L100.2620 2.0-7.7 X10 3/uL High Absolute Neut 20.4 LAB L100.2720 0.83-4.51 X10 3/ul Normal Absolute Lymph 2.52 LAB L100.9900 Normal PATH REV Reviewed Result Comment: Neutrophilic leukocytosis with left shift. Clinical correlation necessary. Mason Baldwin M.D. 09/03/18 AMENDED REPORT 09/03/18 1303 PATH REV previously reported as: May foll Performed By: #### L100.0100 #### [facility] [address] [place], [address] CBC W/DIFF, AUTOMATED Collected: 09/02/2018 Status: F Source: [place] 4:27 AM [facility] REPOSITORY TYPE CODE TESTS RESULT OUT OF RANGE REFERENCE UNITS LAB L100.1000 4.4-11.0 K/mm3 High WBC 28.8 LAB L100.1200 4.6-6.2 M/mm3 Normal RBC 4.81 LAB L100.1300 13.0-16.5 g/dl Normal HGB 14.4 LAB L100.1400 40-54 % Normal HCT 43.1 LAB L100.1500 80-94 fL Normal MCV 89.6 LAB L100.1600 27.0-32.0 pg Normal MCH 29.9 LAB L100.1700 32-36 g/gl Normal MCHC 33.4 LAB L100.1810 11.6-14.6 % Normal RDW CV 13.4 LAB L100.1820 35.1-43.9 fl Normal RDW SD 43.8 LAB L100.1900 150-450 K/mm3 Normal PLT 317 LAB L100.2000 6.2-12.0 fl Normal MPV 9.8 LAB L100.3100 MANUAL DIFF Normal CELLS COUNTED 100 LAB L100.3200 47-70 % High 72 SEGS LAB L100.3300 0-5 % 3 Normal BAND LAB L100.3800 19-41 % Low 13 LYMPH LAB L100.3900 0-10 % High 11 MONOCYTE LAB L100.4000 0-5 % 1 Normal EOS LAB L100.9900 Normal PATH REV Reviewed Result Comment: Neutrophilic leukocytosis with left shift. Clinical correlation necessary. Mason Baldwin M.D. 09/02/18 AMENDED REPORT 09/02/18 1347 PATH REV previously reported as: May foll LAB L100.2620 2.0-7.7 X10 3/uL High Absolute Neut 21.6 LAB L100.2720 0.83-4.51 X10 3/ul Normal Absolute Lymph 3.70 LAB L100.5500 ADEQ Normal PLT EST ADEQUATE LAB L100.7000 NORM C AND C NORMAL Normal RED CELL MORPH NORM C+C Performed By: #### L100.0100 #### [facility] [address] [place], [address] BASIC METABOLIC Collected: 09/01/2018 Status: F Source: [place] PROFILE (BMP) 5:05 AM [facility] REPOSITORY TYPE CODE TESTS RESULT OUT OF RANGE REFERENCE UNITS LAB L501.0100 74-106 mg/dL High GLU 152 Result Comment: Fasting Glucose result greater than or equal to 126 mg/dL suggests DIABETES MELLITUS per A.D.A. criteria. Please note revised GLUCOSE reference range effective 2017. LAB L501.1000 7-18 mg/dL High BUN 27 LAB L501.1100 0.70-1.30 mg/dL Normal CREAT,SERUM 0.84 Result Comment: The validity of the calculated GFR AND GFRAA in patients over 70 years has not been determined. Clinical correlation is essential. LAB L501.1110 >60 mL/min Normal EST GFR 94 Result Comment: Non- GFR Calc LAB L501.1115 >60 mL/min Normal EST GFR - AA 114 Result Comment: GFR Calc LAB L501.1255 ml/min Normal Estimated CRCL 75.98 LAB L501.1300 10-20 RATIO High BUN/CRE 32.0 LAB L501.2200 8.5-10 mg/dL Low .1 CA 8.0 LAB L501.5300 136-14 mmol/L Normal 5 NA 138 LAB L501.5600 3.5-5. mmol/L Normal 1 K 3.9 LAB L501.5900 98-107 mmol/L Low CL 97 LAB L501.6100 21.0-3 mmol/L Normal 2.0 CO2 30.0 LAB L501.6200 5-15 Normal GAP 11 Performed By: #### L500.2500 #### [facility] [address] [place], [address] CBC W/DIFF, AUTOMATED Collected: 09/01/2018 Status: C Source: [place] 5:05 AM [facility] REPOSITORY TYPE CODE TESTS RESULT OUT OF RANGE REFERENCE UNITS LAB L100.1000 4.4-11.0 K/mm3 High alert WBC 31.9 Result Comment: RESULTS CALLED TO BONIFACIO 09/01/18 0610 Alfredo J Rothemund. REPORT READ BACK BY SAME. LAB L100.1200 4.6-6.2 M/mm3 Normal RBC 4.75 LAB L100.1300 13.0-16.5 g/dl Normal HGB 14.4 LAB L100.1400 40-54 % Normal HCT 42.8 LAB L100.1500 80-94 fL Normal MCV 90.1 LAB L100.1600 27.0-32.0 pg Normal MCH 30.3 LAB L100.1700 32-36 g/gl Normal MCHC 33.6 LAB L100.1810 11.6-14.6 % Normal RDW CV 13.5 LAB L100.1820 35.1-43.9 fl Normal RDW SD 43.6 LAB L100.1900 150-450 K/mm3 Normal PLT 375 LAB L100.2000 6.2-12.0 fl Normal MPV 9.9 LAB L100.3100 MANUAL DIFF Normal CELLS COUNTED 100 LAB L100.3200 47-70 % High SEGS 88 LAB L100.3500 0-0 High MYELO 1 LAB L100.3800 19-41 % Low LYMPH 8 LAB L100.3900 0-10 % Normal MONOCYTE 3 LAB L100.5500 ADEQ Normal PLT EST ADEQUATE LAB L100.7000 NORM C AND C NORMAL Normal RED CELL MORPH NORM C+C LAB L100.2620 2.0-7.7 X10 3/uL High Absolute Neut 28.4 LAB L100.2720 0.83-4.51 X10 3/ul Normal Absolute Lymph 2.55 LAB L100.9900 Normal PATH REV Reviewed Result Comment: Neutrophilic leukocytosis with left shift. Clinical correlation necessary. Mason Baldwin M.D. 09/01/18 AMENDED REPORT 09/01/18 1211 PATH REV previously reported as: February jaz Performed By: #### L100.0100 #### [facility] [address] [facility]. [place], [place], [address] VENOUS DUPLEX LOWER Observed: 08/31/2018 Status: F Source: [place] EXTREMITY 5:48 AM [facility] REPOSITORY [facility] Cardiovascular Services [address] [facility] [place] [address] Venous Duplex US - Fabián Extrem 08/28/18 0912 MR#: [id number] Acct: [id number] Name: DAVID BRICENO . Rep #: [id number] : 1945 73 From: Abdulaziz Hidalgo MD Attending Dr: Nicole Rehman Status: ADM IN Ordering Dr: Adryan Silva DO Date: 08/28/18 Location: ICU Sex: M C Admitted: 08/24/18 Reason For Study: SHORTNESS OF BREATH RIGHT LEFT CFV is compressible, spontaneous, phasic, GSV is normal. competent and demonstrates normal CFV is compressible, spontaneous, phasic, augmentation. competent, and demonstrates normal FV is compressible, spontaneous, phasic, augmentation. competent and demonstrates normal FV is compressible, spontaneous, phasic, augmentation. competent and demonstrates normal POP V is compressible, spontaneous, phasic, augmentation. competent and demonstrates normal POP V is compressible, spontaneous, phasic, augmentation. competent and demonstrates normal T/P Trunk is compressible. augmentation. PTV is compressible. T/P Trunk is compressible. RT PerV is compressible. PTV is compressible. GSV harvested LT PerV is compressible. Gastroc V is dilated and non-compressible. Soleus V is dilated and non-compressible. Procedure Exam performed portable in ICU/CCU. A preliminary report was called and/or faxed to ICU nurse. <> Interpretation Summary Acute deep venous thrombosis right gastrocnemius and left soleus veins. No evidence for proximal progression bilaterally. Harvested right great saphenous vein Patent and compressible left great saphenous vein Ordering Physician: Adryan Silva D.O. Referring Physician: Tati Medina Performed By: Kami Parekh RVT 08/31/18 0547 Date Abdulaziz Hidalgo MD CC: Nicole Rehman; Adryan Silva D.O.; Tati Medina MD Date Dictated: 08/28/18911 Date Transcribed: 08/31/18 0547 Environmental Consultant: Signed CBC W/DIFF, AUTOMATED Collected: 08/31/2018 Status: C Source: [place] 4:10 AM [facility] REPOSITORY TYPE CODE TESTS RESULT OUT OF RANGE REFERENCE UNITS LAB L100.1000 4.4-11.0 K/mm3 High alert WBC 30.4 Result Comment: RESULTS CALLED TO [facility] 08/31/18 0426 Alfredo Comer. REPORT READ BACK BY SAME. LAB L100.1200 4.6-6.2 M/mm3 Normal RBC 4.78 LAB L100.1300 13.0-16.5 g/dl Normal HGB 14.4 LAB L100.1400 40-54 % Normal HCT 43.0 LAB L100.1500 80-94 fL Normal MCV 90.0 LAB L100.1600 27.0-32.0 pg Normal MCH 30.1 LAB L100.1700 32-36 g/gl Normal MCHC 33.5 LAB L100.1810 11.6-14.6 % Normal RDW CV 13.2 LAB L100.1820 35.1-43.9 fl Normal RDW SD 43.7 LAB L100.1900 150-450 K/mm3 Normal PLT 374 LAB L100.2000 6.2-12.0 fl Normal MPV 9.5 LAB L100.3100 MANUAL DIFF Normal CELLS COUNTED 100 LAB L100.3200 47-70 % High SEGS 89 LAB L100.3500 0-0 High MYELO 2 LAB L100.3800 19-41 % Low LYMPH 4 LAB L100.3900 0-10 % Normal MONOCYTE 5 LAB L100.5500 ADEQ Normal PLT EST ADEQUATE LAB L100.7000 NORM C AND C NORMAL Normal RED CELL MORPH NORM C+C LAB L100.2620 2.0-7.7 X10 3/uL High Absolute Neut 27.1 LAB L100.2720 0.83-4.51 X10 3/ul Normal Absolute Lymph 1.22 LAB L100.9900 Normal PATH REV Reviewed Result Comment: Neutrophilic leukocytosis with left shift. Clinical correlation necessary. Mason Baldwin M.D. 09/01/18 AMENDED REPORT 09/01/18 1203 PATH REV previously reported as: Teri sebastian Performed By: #### L100.0100 #### [facility] [address] [place], [address] BASIC METABOLIC Collected: 08/31/2018 Status: F Source: [place] PROFILE (BMP) 4:10 AM [facility] REPOSITORY TYPE CODE TESTS RESULT OUT OF RANGE REFERENCE UNITS LAB L501.0100 74-106 mg/dL High GLU 168 Result Comment: Fasting Glucose result greater than or equal to 126 mg/dL suggests DIABETES MELLITUS per A.D.A. criteria. Please note revised GLUCOSE reference range effective 2017. LAB L501.1000 7-18 mg/dL High BUN 26 LAB L501.1100 0.70-1.30 mg/dL Normal CREAT,SERUM 0.92 Result Comment: The validity of the calculated GFR AND GFRAA in patients over 70 years has not been determined. Clinical correlation is essential. LAB L501.1110 >60 mL/min Normal EST GFR 85 Result Comment: Non- GFR Calc LAB L501.1115 >60 mL/min Normal EST GFR - AA 103 Result Comment: GFR Calc LAB L501.1255 ml/min Normal Estimated CRCL 69.38 LAB L501.1300 10-20 RATIO High BUN/CRE 28.3 LAB L501.2200 8.5-10 mg/dL Low .1 CA 8.1 LAB L501.5300 136-14 mmol/L Normal 5 NA 139 LAB L501.5600 3.5-5. mmol/L Normal 1 K 4.0 LAB L501.5900 98-107 mmol/L Low CL 97 LAB L501.6100 21.0-3 mmol/L Normal 2.0 CO2 31.0 LAB L501.6200 5-15 Normal GAP 11 Performed By: #### L500.2500, L501.5200 #### [facility] [address] [place], [address] MAGNESIUM Collected: 08/31/2018 Status: F Source: [place]AN[place] 4:10 AM [facility] REPOSITORY TYPE CODE TESTS RESULT OUT OF RANGE REFERENCE UNITS LAB L501.5200 1.6-2.6 mg/dL Normal MG 2.4 Performed By: #### L500.2500, L501.5200 #### [facility] [address] [place], [place], [address] BEDSIDE GLUCOSE Collected: 08/30/2018 Status: F Source: JAN[place] 2:41 PM [facility] REPOSITORY TYPE CODE TESTS RESULT OUT OF REFERENCE UNITS RANGE LAB L501.080 70-110 mg/dL High BEDSIDE GLU 228 Result Comment: MANAGEMENT OF PATIENT CARE PER NURSING PROTOCOL Performed By: #### L501.080 #### [facility] Point of Care [address] [place] [address] BEDSIDE GLUCOSE Collected: 08/30/2018 Status: F Source: JAN[place] 12:36 PM [facility] REPOSITORY TYPE CODE TESTS RESULT OUT OF REFERENCE UNITS RANGE LAB L501.080 70-110 mg/dL High BEDSIDE GLU 231 Result Comment: MANAGEMENT OF PATIENT CARE PER NURSING PROTOCOL Performed By: #### L501.080 #### [facility] Point of Care [address] [place] [address] BASIC METABOLIC Collected: 08/30/2018 Status: F Source: [place]AN[place] PROFILE (BMP) 6:57 AM [facility] REPOSITORY Order Comment: Order Date: 08/30/18 TYPE CODE TESTS RESULT OUT OF RANGE REFERENCE UNITS LAB L501.0100 74-106 mg/dL High GLU 148 Result Comment: Fasting Glucose result greater than or equal to 126 mg/dL suggests DIABETES MELLITUS per A.D.A. criteria. Please note revised GLUCOSE reference range effective 2017. LAB L501.1000 7-18 mg/dL High BUN 22 LAB L501.1100 0.70-1.30 mg/dL Normal CREAT,SERUM 0.82 Result Comment: The validity of the calculated GFR AND GFRAA in patients over 70 years has not been determined. Clinical correlation is essential. LAB L501.1110 >60 mL/min Normal EST GFR 97 Result Comment: Non- GFR Calc LAB L501.1115 >60 mL/min Normal EST GFR - AA 117 Result Comment: GFR Calc LAB L501.1255 ml/min Normal Estimated CRCL 77.84 LAB L501.1300 10-20 RATIO High BUN/CRE 26.7 LAB L501.2200 8.5-10 mg/dL Low .1 CA 8.2 LAB L501.5300 136-14 mmol/L Low 5 NA 135 LAB L501.5600 3.5-5. mmol/L Normal 1 K 3.8 LAB L501.5900 98-107 mmol/L Low CL 97 LAB L501.6100 21.0-3 mmol/L Normal 2.0 CO2 30.0 LAB L501.6200 5-15 Normal GAP 8 Performed By: #### L500.2500 #### [facility] [address] [place], [address] MAGNESIUM Collected: 08/30/2018 Status: F Source: [place] 6:57 AM [facility] REPOSITORY Order Comment: Comments: OK to use the AM blood draw TYPE CODE TESTS RESULT OUT OF RANGE REFERENCE UNITS LAB L501.5200 1.6-2.6 mg/dL Normal MG 2.2 Performed By: #### L501.5200 #### [facility] [address] [place], [address] CHEST 1 VIEW Observed: 08/30/2018 Status: F Source: [place] 6:53 AM [facility] REPOSITORY [facility] Imaging Services [address] [place] [address] Chest 1 View MR#: [id number] Acct: [id number] Name: DAVID BRICENO Sr. Rep #: [id number] : 1945 M 73 From: Carmencita Maloney MD PCP: Tati Medina MD Status: ADM IN Study: Chest 1 View Date of Exam: 08/30/18 Exam# [id number] Ordering Dr: Shikha Rehman DO STUDY: X-RAY CHEST REASON FOR EXAM: Male, 73 years old. Shortness of breath. TECHNIQUE: Single AP portable view of the chest. COMPARISON: CT of the chest dated August 24, 2018. FINDINGS: Cardiac monitoring leads are present. Patient is status post sternotomy. The lungs are expanded. There are persistent mixed interstitial and airspace opacities in the periphery of both lungs, right more severe than on the left. There are patchy lucencies in both lungs as well that may represent represent sequela of COPD. There is no demonstrated pleural abnormality. There is mild cardiac enlargement. Normal mediastinum and carlos. There is prominence of the pulmonary hilar arteries without peripheral pulmonary vascular congestion, suggesting pulmonary hypertension. There is atherosclerotic calcification of the aortic arch with tortuosity. There is demineralization of the osseous structures. Normal visualized ribs, clavicles, and shoulders. There is no demonstrated abnormality of the visualized soft tissue structures of the upper abdomen. RAD/Chest 1 View IMPRESSION: Persistent bilateral peripheral mixed interstitial and air space opacities some of which maybe chronic. Acute disease unfortunately cannot be excluded. Electronically Signed: Carmencita Maloney MD at 8:23 EST , Service support , CC: Nicole Rehman; Tati Medina MD Environmental Consultant: Signed PARTIAL THROMBOPLAST Collected: 08/29/2018 Status: F Source: [place] TIME 8:30 AM [facility] REPOSITORY TYPE CODE TESTS RESULT OUT OF REFERENCE UNITS RANGE LAB L300.4310 24.1-36.2 Seconds High PTT 51.3 Performed By: #### L300.4310 #### [facility] [address] [place], [place], [address] CBC W/DIFF, AUTOMATED Collected: 08/29/2018 Status: C Source: [place] 6:07 AM [facility] REPOSITORY Order Comment: REDRAW. PREVIOUS SPECIMEN REJECTED DUE TO CONTAMINATED. 08/29/18 0601 TYPE CODE TESTS RESULT OUT OF RANGE REFERENCE UNITS LAB L100.1000 4.4-11.0 K/mm3 High WBC 21.7 LAB L100.1200 4.6-6.2 M/mm3 Low RBC 4.59 LAB L100.1300 13.0-16.5 g/dl Normal HGB 13.6 LAB L100.1400 40-54 % Normal HCT 41.7 LAB L100.1500 80-94 fL Normal MCV 90.8 LAB L100.1600 27.0-32.0 pg Normal MCH 29.6 LAB L100.1700 32-36 g/gl Normal MCHC 32.6 LAB L100.1810 11.6-14.6 % Normal RDW CV 13.3 LAB L100.1820 35.1-43.9 fl Normal RDW SD 43.7 LAB L100.1900 150-450 K/mm3 Normal PLT 382 LAB L100.2000 6.2-12.0 fl Normal MPV 9.7 LAB L100.2100 47-70 % High NEUT% 82.0 LAB L100.2200 19-41 % Low LY% 9.3 LAB L100.2300 0-10 % Normal MONO% 6.2 LAB L100.2400 0-5 % Normal EO% 0.0 LAB L100.2500 0-1 % Normal BASO% 0.5 LAB L100.2550 0.0-0.9 % High IM GRAN % 2.000 Result Comment: IG% - Immature Granulocytes (promyelocytes, myelocytes and metamyelocytes) > 1% indicates that a LEFT SHIFT is Present. LAB L100.2620 2.0-7.7 X10 3/uL High Absolute Neut 17.8 LAB L100.2720 0.83-4.51 X10 3/ul Normal Absolute Lymph 2.01 LAB L100.9900 Normal PATH REV Reviewed Result Comment: Neutrophilic leukocytosis with left shift. Clinical correlation necessary. Mason Baldwin M.D. 08/31/18 AMENDED REPORT 08/31/18 1056 PATH REV previously reported as: February Performed By: #### L100.0100 #### [facility] [address] [place], [address] BASIC METABOLIC Collected: 08/29/2018 Status: F Source: [place] PROFILE ([facility]) 6:07 AM [facility] REPOSITORY Order Comment: REDRAW. PREVIOUS SPECIMEN REJECTED DUE TO CONTAMINATED. 08/29/18 0601 TYPE CODE TESTS RESULT OUT OF RANGE REFERENCE UNITS LAB L501.0100 74-106 mg/dL High GLU 152 Result Comment: Fasting Glucose result greater than or equal to 126 mg/dL suggests DIABETES MELLITUS per A.D.A. criteria. Please note revised GLUCOSE reference range effective 2017. LAB L501.1000 7-18 mg/dL High BUN 19 LAB L501.1100 0.70-1.30 mg/dL Normal CREAT,SERUM 0.83 Result Comment: The validity of the calculated GFR AND GFRAA in patients over 70 years has not been determined. Clinical correlation is essential. LAB L501.1110 >60 mL/min Normal EST GFR 96 Result Comment: Non- GFR Calc LAB L501.1115 >60 mL/min Normal EST GFR - AA 117 Result Comment: GFR Calc LAB L501.1255 ml/min Normal Estimated CRCL 76.90 LAB L501.1300 10-20 RATIO High BUN/CRE 23.0 LAB L501.2200 8.5-10 mg/dL Low .1 CA 8.3 LAB L501.5300 136-14 mmol/L Normal 5 NA 138 LAB L501.5600 3.5-5. mmol/L Normal 1 K 4.0 LAB L501.5900 98-107 mmol/L Normal CL 99 LAB L501.6100 21.0-3 mmol/L Normal 2.0 CO2 28.0 LAB L501.6200 5-15 Normal GAP 11 Performed By: #### L500.2500 #### [facility] [address] [place], [place] [address] [place], [address] CBC W/DIFF, AUTOMATED Collected: 08/29/2018 Status: F Source: JANNA 4:55 AM [facility] REPOSITORY TYPE CODE TESTS RESULT OUT OF RANGE REFERENCE UNITS LAB L100.1000 4.4-11.0 K/mm3 High WBC 18.2 LAB L100.1200 4.6-6.2 M/mm3 Low RBC 4.18 LAB L100.1300 13.0-16.5 g/dl Low HGB 12.4 LAB L100.1400 40-54 % Low HCT 38.1 LAB L100.1500 80-94 fL Normal MCV 91.1 LAB L100.1600 27.0-32.0 pg Normal MCH 29.7 LAB L100.1700 32-36 g/gl Normal MCHC 32.5 LAB L100.1810 11.6-14.6 % Normal RDW CV 13.4 LAB L100.1820 35.1-43.9 fl High RDW SD 44.2 LAB L100.1900 150-450 K/mm3 Normal PLT 341 LAB L100.2000 6.2-12.0 fl Normal MPV 9.6 LAB L100.2100 47-70 % High NEUT% 84.1 LAB L100.2200 19-41 % Low LY% 8.7 LAB L100.2300 0-10 % Normal MONO% 5.4 LAB L100.2400 0-5 % Normal EO% 0.0 LAB L100.2500 0-1 % Normal BASO% 0.2 LAB L100.2550 0.0-0.9 % High IM GRAN % 1.600 Result Comment: IG% - Immature Granulocytes (promyelocytes, myelocytes and metamyelocytes) > 1% indicates that a LEFT SHIFT is Present. LAB L100.2620 2.0-7.7 X10 3/uL High Absolute Neut 15.3 LAB L100.2720 0.83-4.51 X10 3/ul Normal Absolute Lymph 1.58 Performed By: #### L100.0100 #### [facility] [address] [place], [address] BASIC METABOLIC Collected: 08/29/2018 Status: P Source: [place] PROFILE ([facility]) 4:55 AM [facility] REPOSITORY TYPE CODE TESTS RESULT OUT OF RANGE REFERENCE UNITS LAB L501.0100 74-106 mg/dL High GLU 140 Result Comment: Fasting Glucose result greater than or equal to 126 mg/dL suggests DIABETES MELLITUS per A.D.A. criteria. Please note revised GLUCOSE reference range effective 2017. LAB L501.1000 7-18 mg/dL Normal BUN 16 LAB L501.1100 0.70-1.30 mg/dL Low CREAT,SERUM 0.61 Result Comment: The validity of the calculated GFR AND GFRAA in patients over 70 years has not been determined. Clinical correlation is essential. LAB L501.1110 >60 mL/min Normal EST GFR 137 Result Comment: Non- GFR Calc LAB L501.1115 >60 mL/min Normal EST GFR - AA 165 Result Comment: GFR Calc LAB L501.1255 ml/min Normal Estimated CRCL 63.83 LAB L501.1300 10-20 RATIO High BUN/CRE 26.2 LAB L501.5300 136-14 mmol/L Normal 5 NA 144 LAB L501.5600 3.5-5. mmol/L Low 1 K 3.2 LAB L501.5900 98-107 mmol/L High CL 109 LAB L501.6100 21.0-3 mmol/L Normal 2.0 CO2 24.0 LAB L501.6200 5-15 Normal GAP 11 Performed By: #### L500.2500 #### [facility] [address] [place], [address] PARTIAL THROMBOPLAST Collected: 08/29/2018 Status: F Source: [place] TIME 1:35 AM [facility] REPOSITORY TYPE CODE TESTS RESULT OUT OF REFERENCE UNITS RANGE LAB L300.4310 24.1-36.2 Seconds High PTT 56.9 Performed By: #### L300.4310 #### [facility] [address] [place], [address] PARTIAL THROMBOPLAST Collected: 08/28/2018 Status: F Source: [place] TIME 5:15 PM [facility] REPOSITORY TYPE CODE TESTS RESULT OUT OF REFERENCE UNITS RANGE LAB L300.4310 24.1-36.2 Seconds High PTT 50.2 Performed By: #### L300.4310 #### [facility] [address] [place], [address] PROTHROMBIN TIME W/INR Collected: 08/28/2018 Status: F Source: [place] 10:25 AM [facility] REPOSITORY TYPE CODE TESTS RESULT OUT OF RANGE REFERENCE UNITS LAB L300.4150 11.7-14.9 SECONDS High PROTIME 15.1 LAB L300.4200 Normal INR 1.2 Performed By: #### L300.3900, L300.4310 #### [facility] [address] [place], [address] PARTIAL THROMBOPLAST Collected: 08/28/2018 Status: F Source: [place] TIME 10:25 AM [facility] REPOSITORY TYPE CODE TESTS RESULT OUT OF RANGE REFERENCE UNITS LAB L300.4310 24.1-36.2 Seconds Normal PTT 24.6 Performed By: #### L300.3900, L300.4310 #### [facility] [address] [place], [address] CBC W/DIFF, AUTOMATED Collected: 08/28/2018 Status: F Source: [place] 5:15 AM [facility] REPOSITORY TYPE CODE TESTS RESULT OUT OF RANGE REFERENCE UNITS LAB L100.1000 4.4-11.0 K/mm3 High WBC 20.7 LAB L100.1200 4.6-6.2 M/mm3 Low RBC 4.44 LAB L100.1300 13.0-16.5 g/dl Normal HGB 13.3 LAB L100.1400 40-54 % Normal HCT 40.6 LAB L100.1500 80-94 fL Normal MCV 91.4 LAB L100.1600 27.0-32.0 pg Normal MCH 30.0 LAB L100.1700 32-36 g/gl Normal MCHC 32.8 LAB L100.1810 11.6-14.6 % Normal RDW CV 13.3 LAB L100.1820 35.1-43.9 fl Normal RDW SD 43.7 LAB L100.1900 150-450 K/mm3 Normal PLT 398 LAB L100.2000 6.2-12.0 fl Normal MPV 9.7 LAB L100.2100 47-70 % High NEUT% 86.5 LAB L100.2200 19-41 % Low LY% 6.4 LAB L100.2300 0-10 % Normal MONO% 6.3 LAB L100.2400 0-5 % Normal EO% 0.0 LAB L100.2500 0-1 % Normal BASO% 0.0 LAB L100.2550 0.0-0.9 % Normal IM GRAN % 0.800 Result Comment: IG% - Immature Granulocytes (promyelocytes, myelocytes and metamyelocytes) > 1% indicates that a LEFT SHIFT is Present. LAB L100.2620 2.0-7.7 X10 3/uL High Absolute Neut 17.9 LAB L100.2720 0.83-4.51 X10 3/ul Normal Absolute Lymph 1.33 Performed By: #### L100.0100 #### [facility] [address] [place] [place], [address] BASIC METABOLIC Collected: 08/28/2018 Status: F Source: [place] PROFILE ([facility]) 5:15 AM [facility] REPOSITORY TYPE CODE TESTS RESULT OUT OF RANGE REFERENCE UNITS LAB L501.0100 74-106 mg/dL High GLU 182 Result Comment: Fasting Glucose result greater than or equal to 126 mg/dL suggests DIABETES MELLITUS per A.D.A. criteria. Please note revised GLUCOSE reference range effective 2017. LAB L501.1000 7-18 mg/dL High BUN 20 LAB L501.1100 0.70-1.30 mg/dL Normal CREAT,SERUM 0.83 Result Comment: The validity of the calculated GFR AND GFRAA in patients over 70 years has not been determined. Clinical correlation is essential. LAB L501.1110 >60 mL/min Normal EST GFR 96 Result Comment: Non- GFR Calc LAB L501.1115 >60 mL/min Normal EST GFR - AA 116 Result Comment: GFR Calc LAB L501.1255 ml/min Normal Estimated CRCL 76.90 LAB L501.1300 10-20 RATIO High BUN/CRE 24.1 LAB L501.2200 8.5-10 mg/dL Low .1 CA 8.3 LAB L501.5300 136-14 mmol/L Normal 5 NA 138 LAB L501.5600 3.5-5. mmol/L Normal 1 K 4.0 LAB L501.5900 98-107 mmol/L Normal CL 100 LAB L501.6100 21.0-3 mmol/L Normal 2.0 CO2 28.0 LAB L501.6200 5-15 Normal GAP 10 Performed By: #### L500.2500 #### [facility] [address] [place], [place], [address] MAGNESIUM Collected: 08/28/2018 Status: F Source: [place] 5:15 AM [facility] REPOSITORY Order Comment: Comments: please add on to am labs TYPE CODE TESTS RESULT OUT OF RANGE REFERENCE UNITS LAB L501.5200 1.6-2.6 mg/dL Normal MG 2.2 Performed By: #### L501.5200 #### [facility] [address] [place] [place], [address] BASIC METABOLIC Collected: 08/27/2018 Status: F Source: [place] PROFILE (BMP) 5:15 AM [facility] REPOSITORY TYPE CODE TESTS RESULT OUT OF RANGE REFERENCE UNITS LAB L501.0100 74-106 mg/dL High GLU 152 Result Comment: Fasting Glucose result greater than or equal to 126 mg/dL suggests DIABETES MELLITUS per A.D.A. criteria. Please note revised GLUCOSE reference range effective 2017. LAB L501.1000 7-18 mg/dL High BUN 21 LAB L501.1100 0.70-1.30 mg/dL Normal CREAT,SERUM 0.82 Result Comment: The validity of the calculated GFR AND GFRAA in patients over 70 years has not been determined. Clinical correlation is essential. LAB L501.1110 >60 mL/min Normal EST GFR 98 Result Comment: Non- GFR Calc LAB L501.1115 >60 mL/min Normal EST GFR - AA 119 Result Comment: GFR Calc LAB L501.1255 ml/min Normal Estimated CRCL 77.84 LAB L501.1300 10-20 RATIO High BUN/CRE 25.8 LAB L501.2200 8.5-10 mg/dL Low .1 CA 8.4 LAB L501.5300 136-14 mmol/L Normal 5 NA 140 LAB L501.5600 3.5-5. mmol/L Normal 1 K 3.9 LAB L501.5900 98-107 mmol/L Normal CL 101 LAB L501.6100 21.0-3 mmol/L Normal 2.0 CO2 28.0 LAB L501.6200 5-15 Normal GAP 11 Performed By: #### L500.2500 #### [facility] [address] [place] [place], [address] CBC W/DIFF, AUTOMATED Collected: 08/27/2018 Status: F Source: [place] 5:15 AM [facility] REPOSITORY TYPE CODE TESTS RESULT OUT OF RANGE REFERENCE UNITS LAB L100.1000 4.4-11.0 K/mm3 High WBC 26.7 LAB L100.1200 4.6-6.2 M/mm3 Low RBC 4.41 LAB L100.1300 13.0-16.5 g/dl Normal HGB 13.0 LAB L100.1400 40-54 % Normal HCT 40.3 LAB L100.1500 80-94 fL Normal MCV 91.4 LAB L100.1600 27.0-32.0 pg Normal MCH 29.5 LAB L100.1700 32-36 g/gl Normal MCHC 32.3 LAB L100.1810 11.6-14.6 % Normal RDW CV 13.4 LAB L100.1820 35.1-43.9 fl High RDW SD 44.2 LAB L100.1900 150-450 K/mm3 Normal PLT 406 LAB L100.2000 6.2-12.0 fl Normal MPV 10.0 LAB L100.2100 47-70 % High NEUT% 88.4 LAB L100.2200 19-41 % Low LY% 6.8 LAB L100.2300 0-10 % Normal MONO% 4.2 LAB L100.2400 0-5 % Normal EO% 0.0 LAB L100.2500 0-1 % Normal BASO% 0.1 LAB L100.2550 0.0-0.9 % Normal IM GRAN % 0.500 Result Comment: IG% - Immature Granulocytes (promyelocytes, myelocytes and metamyelocytes) > 1% indicates that a LEFT SHIFT is Present. LAB L100.2620 2.0-7.7 X10 3/uL High Absolute Neut 23.6 LAB L100.2720 0.83-4.51 X10 3/ul Normal Absolute Lymph 1.81 LAB L100.4500 Normal SMEAR COMMENT Result Comment: NEUTROPHILIA NOTED LAB L100.5500 ADEQ Normal PLT EST SLT INC LAB L100.7300 Normal ANISO 1+ LAB L100.8100 Normal CRENATED RBC 1+ Performed By: #### L100.0100 #### [facility] [address] [place], [place], [address] Observed: 08/26/2018 Status: F Source: [place] CULTURE, [place] 10:55 AM [facility] REPOSITORY List Antibiotics Last 48 Hours? Zosyn Gram Stain Acceptable Specimen? Yes (<25 Epithelial cells per/lpf) Gram Stain 3+ White Blood Cells Very Rare Gram positive cocci No Epithelial cells Resp. Culture No Haemophilus, Streptococcus pneumoniae, beta-hemolytic Streptococcus or Staphylococcus aureus isolated. ORGANISM 1: Presumptive C albicans Amount Growth Rare Performed By: #### M100.0800 #### [facility] [place], [address] CBC W/DIFF, AUTOMATED Collected: 08/26/2018 Status: F Source: [place] 4:45 AM [facility] REPOSITORY TYPE CODE TESTS RESULT OUT OF RANGE REFERENCE UNITS LAB L100.1000 4.4-11.0 K/mm3 High WBC 21.4 LAB L100.1200 4.6-6.2 M/mm3 Normal RBC 4.73 LAB L100.1300 13.0-16.5 g/dl Normal HGB 14.5 LAB L100.1400 40-54 % Normal HCT 42.6 LAB L100.1500 80-94 fL Normal MCV 90.1 LAB L100.1600 27.0-32.0 pg Normal MCH 30.7 LAB L100.1700 32-36 g/gl Normal MCHC 34.0 LAB L100.1810 11.6-14.6 % Normal RDW CV 13.3 LAB L100.1820 35.1-43.9 fl Normal RDW SD 43.3 LAB L100.1900 150-450 K/mm3 Normal PLT 335 LAB L100.2000 6.2-12.0 fl Normal MPV 9.5 LAB L100.2100 47-70 % High NEUT% 89.6 LAB L100.2200 19-41 % Low LY% 6.6 LAB L100.2300 0-10 % Normal MONO% 3.4 LAB L100.2400 0-5 % Normal EO% 0.0 LAB L100.2500 0-1 % Normal BASO% 0.0 LAB L100.2550 0.0-0.9 % Normal IM GRAN % 0.400 Result Comment: IG% - Immature Granulocytes (promyelocytes, myelocytes and metamyelocytes) > 1% indicates that a LEFT SHIFT is Present. LAB L100.2620 2.0-7.7 X10 3/uL High Absolute Neut 19.2 LAB L100.2720 0.83-4.51 X10 3/ul Normal Absolute Lymph 1.41 Performed By: #### L100.0100 #### [facility] [address] [place], [address] BASIC METABOLIC Collected: 08/26/2018 Status: F Source: [place] PROFILE (BMP) 4:45 AM [facility] REPOSITORY TYPE CODE TESTS RESULT OUT OF RANGE REFERENCE UNITS LAB L501.0100 74-106 mg/dL High GLU 153 Result Comment: Fasting Glucose result greater than or equal to 126 mg/dL suggests DIABETES MELLITUS per A.D.A. criteria. Please note revised GLUCOSE reference range effective 2017. LAB L501.1000 7-18 mg/dL Normal BUN 14 LAB L501.1100 0.70-1.30 mg/dL Normal CREAT,SERUM 0.73 Result Comment: The validity of the calculated GFR AND GFRAA in patients over 70 years has not been determined. Clinical correlation is essential. LAB L501.1110 >60 mL/min Normal EST GFR 112 Result Comment: Non- GFR Calc LAB L501.1115 >60 mL/min Normal EST GFR - AA 136 Result Comment: GFR Calc LAB L501.1255 ml/min Normal Estimated CRCL 63.83 LAB L501.1300 10-20 RATIO Normal BUN/CRE 19.3 LAB L501.2200 8.5-10 mg/dL Normal .1 CA 8.6 LAB L501.5300 136-14 mmol/L Normal 5 NA 136 LAB L501.5600 3.5-5. mmol/L Normal 1 K 3.5 LAB L501.5900 98-107 mmol/L Normal CL 100 LAB L501.6100 21.0-3 mmol/L Normal 2.0 CO2 27.0 LAB L501.6200 5-15 Normal GAP 9 Performed By: #### L500.2500 #### [facility] [address], [address] CBC W/DIFF, AUTOMATED Collected: 08/25/2018 Status: F Source: JANNA 9:00 AM [facility] [place] REPOSITORY TYPE CODE TESTS RESULT OUT OF RANGE REFERENCE UNITS LAB L100.1000 4.4-11.0 K/mm3 High WBC 20.0 LAB L100.1200 4.6-6.2 M/mm3 Low RBC 4.55 LAB L100.1300 13.0-16.5 g/dl Normal HGB 13.6 LAB L100.1400 40-54 % Normal HCT 41.2 LAB L100.1500 80-94 fL Normal MCV 90.5 LAB L100.1600 27.0-32.0 pg Normal MCH 29.9 LAB L100.1700 32-36 g/gl Normal MCHC 33.0 LAB L100.1810 11.6-14.6 % Normal RDW CV 13.4 LAB L100.1820 35.1-43.9 fl High RDW SD 44.0 LAB L100.1900 150-450 K/mm3 Normal PLT 322 LAB L100.2000 6.2-12.0 fl Normal MPV 9.6 LAB L100.2100 47-70 % High NEUT% 84.9 LAB L100.2200 19-41 % Low LY% 7.5 LAB L100.2300 0-10 % Normal MONO% 6.3 LAB L100.2400 0-5 % Normal EO% 0.4 LAB L100.2500 0-1 % Normal BASO% 0.3 LAB L100.2550 0.0-0.9 % Normal IM GRAN % 0.600 Result Comment: IG% - Immature Granulocytes (promyelocytes, myelocytes and metamyelocytes) > 1% indicates that a LEFT SHIFT is Present. LAB L100.2620 2.0-7.7 X10 3/uL High Absolute Neut 17.0 LAB L100.2720 0.83-4.51 X10 3/ul Normal Absolute Lymph 1.51 Performed By: #### L100.0100 #### [facility] [address] [place], [place], [address] BASIC METABOLIC Collected: 08/25/2018 Status: F Source: [place] PROFILE ([facility]) 9:00 AM [facility] REPOSITORY TYPE CODE TESTS RESULT OUT OF RANGE REFERENCE UNITS LAB L501.0100 74-106 mg/dL Normal GLU 92 Result Comment: Please note revised GLUCOSE reference range effective 2017. LAB L501.1000 7-18 mg/dL Normal BUN 8 LAB L501.1100 0.70-1.30 mg/dL Normal CREAT,SERUM 0.72 Result Comment: The validity of the calculated GFR AND GFRAA in patients over 70 years has not been determined. Clinical correlation is essential. LAB L501.1110 >60 mL/min Normal EST GFR 113 Result Comment: Non- GFR Calc LAB L501.1115 >60 mL/min Normal EST GFR - AA 137 Result Comment: GFR Calc LAB L501.1255 ml/min Normal Estimated CRCL 63.83 LAB L501.1300 10-20 RATIO Normal BUN/CRE 11.1 LAB L501.2200 8.5-10 mg/dL Low .1 CA 8.0 LAB L501.5300 136-14 mmol/L Low 5 NA 133 LAB L501.5600 3.5-5. mmol/L Normal 1 K 3.8 LAB L501.5900 98-107 mmol/L Normal CL 100 LAB L501.6100 21.0-3 mmol/L Low 2.0 CO2 20.0 LAB L501.6200 5-15 Normal GAP 13 Performed By: #### L500.2500 #### [facility] [address] [facility] [place], [address] CONSULTATION Observed: 08/25/2018 Status: F Source: [place] 6:55 AM [facility] REPOSITORY [facility] Medical Records Department [address] [place] [address] Consultation 08/24/18 1215 MR#: [id number] Acct: [id number] Name: DAVID BRICENO Sr. Rep #: [id number] : 1945 73 From: Adryan Silva DO PCP: Tati Medina MD Status: ADM IN Location: [address] Reason for Consult Date of Consultation: 08/24/18 Reason for Consultation: Pulmonary fibrosis History of Present Illness: The patient is a 73-year-old male, with a history as outlined below, who presented to the emergency department on August 24 with complaints of shortness of breath and productive cough. The patient has a history of an underlying irreversible moderate mixed ventilatory defect, for which he follows with Dr. Hein on an outpatient basis. The patient was last seen in the pulmonary medicine clinic on July 27, 2018, at which time, he was started on Breo. Previous chest CT from April 2018 revealed evidence of emphysematous changes along with subpleural reticular changes and focal areas of honeycombing. There was also evidence of traction bronchiectasis. 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 As part of his initial workup with Dr. Hein, and autoimmune panel was obtained and revealed a positive rheumatoid factor and anti-CCP antibody. Therefore, the patient was referred to rheumatology in [place]. That machine accountant found findings concerning for an abnormal M protein and subsequently referred the patient to see Dr. Sol. I spoke with Dr. 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 The patient is yet to be started on any form of therapy for his underlying rheumatoid arthritis. He was evaluated by his primary care provider last week and started on azithromycin for presumptive pneumonia. However, the patient's symptoms continued to progress. On presentation to the emergency department, the patient was noted to be afebrile, mildly tachycardic and hemodynamically stable. He was, nevertheless, tachypneic and hypoxic. Laboratory evaluation revealed elevated white blood cell count to 17,000. Chemistry profile was largely unremarkable. Troponin was negative. A plain film chest x-ray was obtained and revealed bilateral interstitial airspace disease. The patient was subsequently started on antibiotics and scheduled bronchodilators. He was admitted to the progressive care unit for ongoing management. Past Medical History Past Medical History (Chronic Problems): Chronic Problems (Last Reviewed 08/24/18 @ 03:05 by Andrés Mane MD) History of ND (myocardial infarction) (Chronic) CAD (coronary artery disease) (Chronic) Pulmonary fibrosis (Chronic) COPD (chronic obstructive pulmonary disease) (Chronic) Medical History: Medical History (Last Reviewed 08/24/18 @ 03:05 by Andrés Mane MD) History of ND (myocardial infarction) (Chronic) I25.2 CAD (coronary artery disease) (Chronic) I25.10 Pulmonary fibrosis (Chronic) J84.10 COPD (chronic obstructive pulmonary disease) (Chronic) J44.9 Allergies amoxicillin [From Augmentin] Allergy (Verified 08/24/18 01:11) Other I GET SWEATY AND CRAZY. clavulanic acid [From Augmentin] Allergy (Verified 08/24/18 01:11) Other I GET SWEATY AND CRAZY. hydrocodone Allergy (Verified 08/24/18 01:11) Other I GET SWEATY AND CRAZY. Iodinated Contrast- Oral and IV Dye [DYEE] Allergy (Verified 08/24/18 01:11) Angioedema naproxen Allergy (Verified 08/24/18 01:11) Other I GET SWEATY AND CRAZY. prednisone Allergy (Verified 08/24/18 01:11) Other I GET SWEATY AND CRAZY. Home Medications: Ambulatory Orders Medication Instructions Recorded Amlodipine [Norvasc] 10 mg PO DAILY 05/04/18 Aspirin E.C. [Ecotrin] 81 mg PO DAILY@0800 05/04/18 Benzonatate [Tessalon Perle] 200 mg PO TID PRN PRN #20 cap 05/04/18 Surgical History: Surgical History (Last Reviewed 08/24/18 @ 03:05 by Andrés Mane MD) History of bilateral cataract extraction (Resolved) Z98.41, Z98.42 Status post trigger finger release (Resolved) Z98.890 History of cholecystectomy (Resolved) Z90.49 History of bilateral carpal tunnel release (Resolved) Z98.890 History of prostatectomy (Resolved) Z90.79 History of coronary artery bypass graft x 3 (Resolved) Z95.1 History of colonoscopy (Resolved) Z98.890 Lives: Spouse/ Significant Other Smoking Status: Former smoker Alcohol: Occasional - *Family History Maternal Family History: Family History (Last Reviewed 08/24/18 @ 03:06 by Andrés Mane MD) Father Myocardial infarction Mother Myocardial infarction Brother Lung cancer Daughter Colostomy in place Asthma Kidney disease Son Aneurysm Paternal Family History: Family History (Last Reviewed 08/24/18 @ 03:06 by Andrés Mane MD) Father Myocardial infarction Mother Myocardial infarction Brother Lung cancer Daughter Colostomy in place Asthma Kidney disease Son Aneurysm Review of Systems Constitutional: Denies: Chills, Fever Eyes: Denies: Blurred vision, Double vision HEENT: Denies: Head Aches, Sinus Congestion, Sinus Drainage Cardiovascular: Denies: Chest Pain, Palpitations Respiratory: Reports: Cough, Shortness of Breath, Sputum production, Wheezing Gastrointestinal: Denies: Abdominal Pain, Nausea, Vomiting Genitourinary: Denies: Dysuria Musculoskeletal: Denies: Joint Pain, Joint Tenderness Skin: Denies: Rash, Wounds Neurological: Denies: Numbness, Tingling, Focal weakness Psychiatric: Denies: Anxiety, Depression, Homicidal Ideations, Suicidal Ideations Hematologic/ Lymphatic: Denies: Easy Bruising, Easy Bleeding Patient Problems: Active and Suspected Problems (Last Reviewed 08/24/18 @ 03:05 by Andrés Mane MD) Community acquired pneumonia (Acute) Hypoxemia (Acute) Objective: The patient's most recent lab work, culture data and imaging studies have all been personally reviewed. Strep and urine Legionella antigens were both negative. Blood and sputum cultures are pending. - Physical Exam General: Alert, Cooperative, - - Sitting in bedside recliner. Family is present at the bedside. HEENT: Atraumatic, PERRLA, Normocephalic Oral: No Gingival or Mucosal Lesions/ Ulcerations Neck: Supple, No Nodes, Trachea Midline Lungs: No rhonchi, Rales, Short of Breath, Tachypneic, Wheezes Cardiovascular: Normal S1, Normal S2, No murmurs, Tachycardic Abdomen: Bowel Sounds Present, Soft, Non Tender, Non-Distended Extremities: No clubbing, No cyanosis, No edema Skin: No breakdown Musculoskeletal: No Tenderness to Palpation of Joints or Extremities Lymphatic: No Cervical, Supraclavicular, or Inguinal Adenopathy Neurological: Cranial nerves II-XII grossly intact, Neuro grossly intact Psych/Mental Status: Normal Affect, Appropriate Vital Signs Temp Pulse Resp BP Pulse Ox 36.8 C 102 H 16 113/73 94 08/24/18 09:18 08/24/18 10:59 08/24/18 10:52 08/24/18 09:18 08/24/18 09:18 Oxygen Flow Rate (L/min) 6 Oxygen Delivery Method Nasal Cannula Weight: 195 lb 15.855 oz Body Mass Index (BMI) 28.9 Intake and Output for Last 24 Hours Intake Total 616.8 / 616.8 Balance 616.8 / 616.8 Microbiology Past 72 Hours 08/24/18 01:24 Gram Stain - Final Laboratory Tests Past 24 Hrs WBC RBC Hgb Hct MCV MCH MCHC RDW RDW Differential Plt Count Clinical Impression(s) from Imaging Studies Chest X-Ray 08/24/18 01:19 IMPRESSION: Increasing right-sided airspace consolidation and left-sided airspace consolidation since previous study consistent with pneumonia. Electronically Signed: Carmencita Maloney MD at 2:01 EST , Service support , Assessment/Plan All Active Problems (Last Reviewed 08/24/18 @ 03:05 by Andrés Mane MD) Community acquired pneumonia (Acute) Hypoxemia (Acute) History of bilateral cataract extraction (Resolved) Status post trigger finger release (Resolved) History of cholecystectomy (Resolved) History of bilateral carpal tunnel release (Resolved) History of prostatectomy (Resolved) History of coronary artery bypass graft x 3 (Resolved) History of colonoscopy (Resolved) RECOMMENDATIONS: 1. Obtain high resolution chest CT. 2. Obtain surface echocardiogram. 3. Continue antibiotics, pending infectious workup. 4. Continue scheduled bronchodilators. 5. Aggressive bronchopulmonary hygiene. 6. Wean supplemental oxygen as tolerated. IMPRESSIONS: 1. Acute hypoxic respiratory failure/underlying mixed ventilatory defect with exacerbation/bronchiectasis Potentially multifactorial in etiology. While the patient did have what appeared to be the beginning stages of an interstitial lung process in April, would recommend obtaining a repeat high-resolution chest CT for further clarification, as the patient's plain film chest x-ray appears to show an evolving interstitial lung process. While I cannot discount the possibility for underlying pulmonary infectious process, the patient has known bronchiectasis which could be contributing to his current cough complaints. Regardless, I agree with continuing Levaquin for now. In addition to the aforementioned, would plan to obtain a surface echocardiogram for evaluation of any diastolic dysfunction and/or pulmonary hypertension. Pulmonary infectious workup is in process. Would also plan to check a respiratory viral panel. Clinical considerations for the patient's evolving interstitial lung process would be idiopathic pulmonary fibrosis versus fibrosing NSIP, given that the patient was recently identified as having rheumatoid arthritis. Wean supplemental oxygen as tolerated to maintain saturations at or above 90%. Continue scheduled bronchodilators as ordered. The patient reports an allergy to prednisone in the past. Therefore, we will hold off on initiation of systemic corticosteroids. 2. Recently diagnosed rheumatoid arthritis and MGUS The patient was referred to rheumatology from the office of Dr. Hein after he was noted to have a positive rheumatoid factor and anti-CCP antibody. However, the machine accountant identified an abnormal M protein, which prompted a referral to Dr. Sol of hematology. I personally discussed the patient with Dr. 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 I do feel that it will be imperative that the patient return to the machine accountant as quickly as possible to be started on therapy for his underlying rheumatologic disease, as this could be contributing to his current lung manifestations. 3. Prior history of tobacco abuse/hypertension/GERD Complicates care, management, recovery and prognosis. Continue home medications as indicated. This note was generated with [employer] dictation software. It may contain incorrect words, spelling, and punctuation that were not noted in checking the note before signing. Code Visit Inpatient E AND M: 97338 Init Hosp L3 08/25/18 0655 <Electronically signed by Adryan Silva DO> Date Adryan Silva DO Cosigner Signature (if applicable): Date CC: Adryan Silva D.O.; Tati Medina MD Signed BNP,B-TYPE NATRIURETIC Collected: 08/25/2018 Status: F Source: [place] 6:12 AM [facility] REPOSITORY TYPE CODE TESTS RESULT OUT OF RANGE REFERENCE UNITS LAB L503.6620 0-100 pg/mL High B-TYPE 177.8 KT PEP Performed By: #### L503.6620 #### [facility] [address] [facility] [place], [address] ECHOCARDIOGRAM COMPLETE Observed: 08/24/2018 Status: F Source: [place] 5:21 PM [facility] REPOSITORY [facility] Cardiovascular Services [address] [place] [address] Echo Complete 08/24/18 1506 MR#: [id number] Acct: [id number] Name: DAVID BRICENO Sr. Rep #: [id number] : 1945 73 From: Dmitriy Pride MD Attending Dr: Angel Enrique MD Status: ADM IN Ordering Dr: Adryan Silva DO Date: 08/24/18 Location: [facility] Sex: M C Admitted: 08/24/18 Reason For Study: DYSPNEA, SOB Procedure This was a 2D Doppler, Color Flow transthoracic echocardiogram. The study was technically difficult. Due to arrhythmia and patient's discomfort (fever/chills/dyspnea/SOB). Exam performed portable in patient room. Left Ventricle Normal LV size. Left ventricular systolic function is normal. The estimated ejection fraction is 60 %. Stage 1 diastolic dysfunction. No regional wall motion abnormalities noted. Right Ventricle Normal RV size. Normal systolic function. Atria The left atrium is mildly enlarged. Normal right atrium. Mitral Valve The mitral valve is structurally normal. No prolapse or stenosis seen. Tricuspid Valve Normal tricuspid valve. Mild to moderate (1-2+) tricuspid valve insufficiency. Pulmonary artery systolic pressure is 44 mmHg. Aortic Valve The aortic valve is not well visualized. Pulmonic Valve Normal pulmonic valve. Great Vessels Mildly dilated aortic root. The pulmonary artery is normal size. Normal inferior vena cava. Pericardium/Pleural No pericardial effusion. MMode/2D Measurements AND Calculations LVIDd: 4.5 cm IVSd: 1.0 cm Ao root diam: 3.2 cm LVIDs: 2.8 cm LVPWd: 1.0 cm RVDd: 3.2 cm FS: 36.6 % LAV(MOD-bp): 76.0 ml LA A4 area: 23.1 cm2 LA dimension(2D): 4.4 cm LAV(MOD-bp) Indexed: 37.2 ml/m2 LAV(MOD-sp2): 74.2 ml LAV(MOD-sp4): 74.2 ml RA A4 area: 14.7 cm2 Time Measurements MV dec time: 0.15 sec Doppler Measurements AND Calculations MV E max zeenat: 80.9 cm/sec Lat Peak E' Zeenat: 9.6 cm/sec Med Peak E' Zeenat: 9.3 cm/sec MV A max zeenat: 93.2 cm/sec E/E' lat: 8.5 E/E' med: 8.7 MV E/A: 0.87 Ao V2 max: 175.4 cm/sec LV V1 max: 105.7 cm/sec PA V2 max: 100.8 cm/sec Ao max P.3 mmHg LV V1 max P.5 mmHg TR max zeenat: 317.0 cm/sec TR max P.4 mmHg Interpretation Summary Normal LV size. Left ventricular systolic function is normal. The estimated ejection fraction is 60 %. Stage 1 diastolic dysfunction. Pulmonary artery systolic pressure is 44 mmHg. No cardiac source of emboli noted. There is no evidence of a mass or vegetation. This does not rule out endocarditis. Ordering Physician: Adryan Silva D.O. Referring Physician: Tati Medina Performed By: Nayeli Borja, RDCS, RVT 08/24/18 1721 Date Dmitriy Pride MD CC: Adryan Silva D.O.; Tati Medina MD; Angel Enrique MD Date Dictated: 08/24/18 1506 Date Transcribed: 08/24/18 172 Environmental Consultant: Signed BLOOD GASES BY CPS Collected: 08/24/2018 Status: F Source: [place] 5:12 PM [facility] REPOSITORY TYPE CODE TESTS RESULT OUT OF RANGE REFERENCE UNITS LAB L9000.9990 Normal BLD GAS TYPE ART LAB L9001.1000 Normal SITE L Radial LAB L9001.1010 Normal FRAN TEST NA LAB L9001.1050 O2 Normal Delivery Dev Nasal Can LAB L9001.1055 /min Normal LPM 6.0 LAB L9001.1104 Normal Results To HOSP MD LAB L9001.1105 Normal Time Given 1720 LAB L9001.1110 7.35-7.45 High pH - I-STAT 7.52 LAB L9001.1210 35-45 mmHg Low pCO2 - ISTAT 26.8 LAB L9001.1310 75-100 mmHG Low PO2 I-STAT 50 LAB L9001.2300 22-26 mmol/L Low HCO3 ISTAT 21.7 LAB L9001.2400 -2 to +2 mmol/L BE Normal ISTAT -1 LAB L9001.2415 mmol/L Normal TOTAL CO2 23 ISTAT LAB L9001.2425 95-99 % Low SO2 ISTAT 89 Performed By: #### L9000.0800 #### [facility] Point of Care [address] [place] [address] M R STAPH AUREUS Collected: 08/24/2018 Status: F Source: [place] DNA BY PCR 5:04 PM [facility] REPOSITORY TYPE CODE TESTS RESULT OUT OF RANGE REFERENCE UNITS LAB L8200.1100 Negative Normal MRSA Negative RESULT Performed By: #### L8200.1000 #### [facility] [address] [place], [address] Observed: 08/24/2018 Status: F Source: [place] RESPIRATORY PANEL 2:30 PM [facility] MOLECULAR REPOSITORY Order Date: 08/24/18 Has pt arrived? Y RP PANEL ADENOVIRUS Not Detected HUMAN METAPHNEUMO Not Detected INFLUENZA A Not Detected INFLUENZA A (SUBTYPE H1) Not Detected INFLUENZA A (SUBTYPE H3) Not Detected INFLUENZA B Not Detected PARAINFLUENZA 1 Not Detected PARAINFLUENZA 2 Not Detected PARAINFLUENZA 3 Not Detected PARAINFLUENZA 4 Not Detected RHINOVIRUS Not Detected RSV A Not Detected RSV B Not Detected NAAT METHOD Testing was performed using nucleic acid amplification Performed By: #### M100.638 #### [facility] [address] [facility] [place], [address] CHEST WITHOUT Observed: 08/24/2018 Status: F Source: [place] CONTRAST 11:21 AM [facility] REPOSITORY [facility] Imaging Services [address] [place] [address] Chest without Contrast MR#: [id number] Acct: [id number] Name: DAVID BRICENO Sr. Rep #: [id number] : 1945 M 73 From: Joseph Sheriff MD PCP: Tati Medina MD Status: ADM IN Study: Chest without Contrast Date of Exam: 08/24/18 Exam# [id number] Ordering Dr: Adryan Silva DO STUDY: CT CHEST WITHOUT CONTRAST REASON FOR EXAM: Male, 73 years old. History of bilateral pneumonia. RADIATION DOSAGE (If Supplied By Facility): CTDIvol = ( 19.49 ) mGy, DLP = ( 727.83 ) mGycm TECHNIQUE: Transaxial imaging was performed without the administration of intravenous contrast material. Multiplanar coronal and sagittal images were reformatted. Individualized dose optimization techniques were used for this CT. COMPARISON: Comparison is made with prior CT scan of thorax dated May 04, 2018 and prior chest radiograph done earlier in the day. FINDINGS: Bilateral axillary lymph nodes. The largest on the left side measures 2 cm. The largest on the right side measures 1.2 cm. There is evidence of groundglass appearance in the right upper lobe as well as in the right middle lobe and right lower lobe. There is evidence of interstitial scarring with bronchiectasis and multiple small cystic changes in the right hemithorax suggestive of a chronic interstitial pulmonary fibrosis. This has progressed as compared to prior study. There is also evidence of increased initial markings there is a complex and cystic changes in the left upper lobe as well as in the left lower lobe although this is to a lesser extent as compared to the left side. This is suggestive of progressive chronic interstitial fibrosis and end-stage lung. There is no demonstrated pleural abnormality. There are calcifications of the coronary arteries. There are multiple small lymph nodes within the mediastinum, which are normal in size and morphology most compatible with reactive lymph hyperplasia. Normal hilar regions. Normal unenhanced pulmonary arteries. There is atherosclerotic calcification of the aortic arch with tortuosity and elongation of the aortic arch and descending thoracic aorta. There are multi-level degenerative changes of the thoracic spine. Stable appearance of the hepatic cysts. CT/Chest without Contrast IMPRESSION: Changes compatible with a progressive pulmonary fibrosis with evidence of honeycombing and bronchiectasis. This is worse in the right hemithorax. Enlarged bilateral axillary lymph nodes. Electronically Signed: Joseph Sheriff MD at 12:53 EST Tel [phone], Service support , CC: Adryan Silva D.O.; Tati Medina MD Environmental Consultant: Signed MYCOPLASMA PNEU IGG / Collected: 08/24/2018 Status: F Source: [place] IGM 5:27 AM [facility] REPOSITORY TYPE CODE TESTS RESULT OUT OF RANGE REFERENCE UNITS LAB L7000.2525 0-99 U/mL Normal MYCO IgG < 100 [id number] Result Comment: Negative: <100 Indeterminate: 100 - 320 Positive: >320 The reference interval established is intended as a baseline only. Values >100 may indicate a recent infection with Mycoplasma pneumoniae and need to be confirmed either by a positive IgM result and/or an additional specimen drawn 2-4 weeks later showing a significant increase in antibody levels. LAB L7000.2600 0-769 U/mL Normal MYCOPLASMA IgM < 770 Result Comment: Negative <770 Clinically significant amount of M. pneumoniae antibody not detected. Low Positive 770 - 950 M. pneumoniae specific IgM presumptively detected. It is recommended that another sample be collected 1-2 weeks later to assure reactivity. Positive >950 Highly significant amount of M. pneumoniae specific IgM antibody detected. Performed at: [facility] [address] [id number] Toll Line Mechanic: Arnulfo Puckett PhD, Phone: [phone] Performed By: #### L7000.2400 #### [facility] (refer to report for specific site) refer to report for address and phone number HISTORY AND PHYSICAL Observed: 08/24/2018 Status: F Source: [place] EXAM 4:30 AM [facility] REPOSITORY [facility] Medical Records Department [address] [place] [id number] History and Physical 08/24/18 0151 MR#: [id number] Acct: [id number] Name: DAVID BRICENO Arm[place] Sr. Rep #: [id number] : 1945 73 From: Andrés Mane MD PCP: Tati Medina MD Status: ADM IN Location: [place] [address] Problem List (1) Community acquired pneumonia Status: Acute (2) COPD (chronic obstructive pulmonary disease) Status: Chronic Qualifiers: COPD type: emphysema Emphysema type: centrilobular Qualified Code(s): J43.2 - Centrilobular emphysema History of Present Illness Date of Admission: 08/24/18 Chief Complaint: shortness of breath The patient is a 73 year old M with a significant history of former tobacco abuse; CAD status post CABG; hypertension;HLD; COPD without home oxygen use who presented with progressively worsening shortness of breath that started about a week ago. Associated with his symptoms is productive cough of phlegm, yellowish and greenish sputum. His shortness of breath is the same at rest and with walking. Furthermore he has wheezes. Patient reports a temperature of 101 Fahrenheit while at home. He tried home inhalers without any real relief. The emergency department X-ray showed bilateral airspace disease. Emergency department doctor heard wheezing on examination. Patient was found to have elevated white count of 17.6. His white count on 08/20/2018 was 17.3. Patient was started on IV Levaquin. Reportedly, 4 days ago patient was started on outpatient Z- Fredo. Patient has 1 more dose of Z-Fredo left. However his symptoms continue to worsen on Z-Fredo. Emergency department doctor reported that patient respiratory rate was 30 and his oxygen percentage saturation was 84 on room air. Also he had tachycardia. Patient reports a complicated history of shortness of breath that started in April of this year. At that time he was diagnosed with pulmonary fibrosis and pneumonia. He saw his PCP who referred to Dr. Hein, dean of boys. Patient was was then referred to machine accountant. Patient was then referred with Dr. Sol, oncologist. 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 Per patient he did a 24-hour urine studies. Patient reports that he did a bone scan. Patient reports being diagnosed with rheumatoid arthritis. Previous CT showed mediastinal lymphadenopathy. Past Medical History Past Medical History (Chronic Problems): Chronic Problems (Last Reviewed 08/24/18 @ 03:05 by Andrés Mane MD) History of ND (myocardial infarction) (Chronic) CAD (coronary artery disease) (Chronic) Pulmonary fibrosis (Chronic) COPD (chronic obstructive pulmonary disease) (Chronic) Medical History: Medical History (Last Reviewed 08/24/18 @ 03:05 by Andrés Mane MD) History of ND (myocardial infarction) (Chronic) I25.2 CAD (coronary artery disease) (Chronic) I25.10 Pulmonary fibrosis (Chronic) J84.10 COPD (chronic obstructive pulmonary disease) (Chronic) J44.9 Allergies amoxicillin [From Augmentin] Allergy (Verified 08/24/18 01:11) Other I GET SWEATY AND CRAZY. clavulanic acid [From Augmentin] Allergy (Verified 08/24/18 01:11) Other I GET SWEATY AND CRAZY. hydrocodone Allergy (Verified 08/24/18 01:11) Other I GET SWEATY AND CRAZY. Iodinated Contrast- Oral and IV Dye [DYEE] Allergy (Verified 08/24/18 01:11) Angioedema naproxen Allergy (Verified 08/24/18 01:11) Other I GET SWEATY AND CRAZY. prednisone Allergy (Verified 08/24/18 01:11) Other I GET SWEATY AND CRAZY. Home Medications: Ambulatory Orders Medication Instructions Recorded Amlodipine [Norvasc] 10 mg PO DAILY 05/04/18 Surgical History: Surgical History (Last Reviewed 08/24/18 @ 03:05 by Andrés Mane MD) History of bilateral cataract extraction (Resolved) Z98.41, Z98.42 Status post trigger finger release (Resolved) Z98.890 History of cholecystectomy (Resolved) Z90.49 History of bilateral carpal tunnel release (Resolved) Z98.890 History of prostatectomy (Resolved) Z90.79 History of coronary artery bypass graft x 3 (Resolved) Z95.1 History of colonoscopy (Resolved) Z98.890 Lives: Spouse/ Significant Other Smoking Status: Former smoker Alcohol: Occasional - *Family History Maternal Family History: Family History (Last Reviewed 08/24/18 @ 03:06 by Andrés Mane MD) Father Myocardial infarction Mother Myocardial infarction Brother Lung cancer Daughter Colostomy in place Asthma Kidney disease Son Aneurysm Paternal Family History: Family History (Last Reviewed 08/24/18 @ 03:06 by Andrés Mane MD) Father Myocardial infarction Mother Myocardial infarction Brother Lung cancer Daughter Colostomy in place Asthma Kidney disease Son Aneurysm Review of Systems Constitutional: Reports: Fever. Denies: Chills, Weight Change HEENT: Denies: Head Aches, Sinus Congestion, Sinus Drainage Cardiovascular: Denies: Chest Pain, Palpitations Respiratory: Reports: Cough, Shortness of Breath, Shortness of breath at rest, Shortness of breath upon exertion, Sputum production Gastrointestinal: Denies: Abdominal Pain, Nausea, Vomiting Genitourinary: Denies: Dysuria Musculoskeletal: Denies: Joint Pain, Joint Tenderness Skin: Denies: Rash, Wounds Neurological: Denies: Numbness, Tingling, Focal weakness Psychiatric: Denies: Anxiety, Depression, Homicidal Ideations, Suicidal Ideations Hematologic/ Lymphatic: Denies: Easy Bruising, Easy Bleeding VTE Information - Inpt Only VTE Present on Admission: No VTE Mechan Device Prophylaxis: None VTE Pharm Prophylaxis ordered?: Yes Patient Problems: Active and Suspected Problems (Last Reviewed 08/24/18 @ 03:05 by Andrés Mane MD) Community acquired pneumonia (Acute) Hypoxemia (Acute) - Physical Exam General: Alert, Oriented x3, Cooperative HEENT: Atraumatic, PERRLA, EOMI, Normocephalic Neck: Supple, No JVD, Negative Carotid Bruits Lungs: Normal air movement, Rales - Mid to lower lung gallego bilateral, Tachypneic Cardiovascular: No murmurs, Tachycardic Abdomen: Bowel Sounds Present, Soft, Non Tender Extremities: No edema, Capillary Refill Less than 3 Seconds Skin: No rashes, No breakdown Musculoskeletal: No Tenderness to Palpation of Joints or Extremities Neurological: Neuro grossly intact Psych/Mental Status: Normal Affect, Appropriate Vital Signs Temp Pulse Resp BP Pulse Ox 99.5 F H 101 H 16 138/73 H 93 08/24/18 01:08 08/24/18 01:31 08/24/18 01:31 08/24/18 01:08 08/24/18 01:31 Oxygen Flow Rate (L/min) 3 Oxygen Delivery Method Nasal Cannula Weight: 91.5 kg Body Mass Index (BMI) 29.7 Laboratory Tests Past 24 Hrs WBC RBC Hgb Hct MCV MCH MCHC RDW RDW Differential Assessment/Plan All Active Problems (Last Reviewed 08/24/18 @ 03:05 by Andrés Mane MD) Community acquired pneumonia (Acute) Hypoxemia (Acute) History of bilateral cataract extraction (Resolved) Status post trigger finger release (Resolved) History of cholecystectomy (Resolved) History of bilateral carpal tunnel release (Resolved) History of prostatectomy (Resolved) History of coronary artery bypass graft x 3 (Resolved) History of colonoscopy (Resolved) The patient is a 73 year old M with a significant history of former tobacco abuse; CAD status post CABG; hypertension;HLD; COPD without home oxygen use who presented with progressively worsening shortness of breath that started in April of this year and further worsened in the past week. Acute hypoxemic respiratory failure. Independent review of chest x-ray confirmed increasing right- sided airspace disease and left-sided airspace disease. This could represent fluid infiltrate superimposed on baseline of pulmonary fibrosis. Review of a [facility] notes on 07/27/2018 showed the patient has mixed ventilatory defects noted on pulmonary function testing. Review of records shows that CTA on 05/04/2018 depicted pulmonary fibrosis with components of peripheral honeycombing and traction bronchiectasis in a pattern suggesting UIP. At that time CTA also showed Subsegmental consolidation in the left lower lobe suspicious for acute pneumonia. Further patient had multiple mediastinal lymph adenopathy. Upon this admission, CURB 65 is 2. Multifactorial from bilateral pneumonia and COPD. Received Levaquin at the emergency department. Levaquin continued. Because of patient's history of COPD and a long course of pulmonary disease, steroid was discussed with patient. However patient stated that he goes crazy and has diaphoresis with steroid use. DuoNeb scheduled ordered. Albuterol as needed ordered. Inhaled corticosteroid continued. Incentives parameter and chest physiotherapy ordered. Strep pneumonia antigen and Legionella urine antigen ordered. Mycoplasma antibody ordered. Blood cultures and sputum cultures were ordered in the emergency department. Results are pending. Consider discussing case with Dr. Hein, dean of boys since patient is known to Dr. Hein. Placed on cardiac specialist because of tachycardia. Mucinex ordered. Home as needed Tessalon Perles continued. M protein disease Patient reports that he had a scheduled appointment on 08/24/[address] Sol Patient to follow up outpatient. Hypertension At admission blood pressure was not within goal. Continue home metoprolol and amlodipine. Trend blood pressures and adjust blood pressure medication as necessary. CAD status post CABG Aspirin continued Metoprolol continued. GERD PPI continued DVT prophylaxis subcutaneous Lovenox ordered Code Visit Inpatient E AND M: 61918 Init Hosp L3 08/24/18 0430 <Electronically signed by Andrés Mane MD> Date Andrés Mane MD Cosigner Signature: Date (if applicable) CC: Tati Medina MD; Andrés Mane MD Signed URINALYSIS, COMPLETE Collected: 08/24/2018 Status: F Source: [place] 3:16 AM [facility] REPOSITORY Order Comment: Order Date: 08/24/18 How was Urine Obtained? FIELD SERVICES ANALYST TO SPECIFY TYPE CODE TESTS RESULT OUT OF RANGE REFERENCE UNITS LAB L400.3000 Yellow COLOR Normal Yellow LAB L400.3050 Clear Normal CLARITY Sl. Cloudy LAB L400.3200 Normal mg/dl Normal GLUCOSE, UR Normal LAB L400.3300 Negative mg/dL Normal BILIRUBIN URINE Negative LAB L400.3400 Negative mg/dl Normal KETONE UR Negative LAB L400.3465 1.002-1.030 Normal SP.GR. DIPSTX 1.010 LAB L400.3550 5.0 - 8.0 pH UR Normal 6.0 LAB L400.3600 Negative mg/dl High PROT 15 DIPSTX LAB L400.3700 Normal mg/dl Normal UROBILI Normal LAB L400.3750 Negative Normal NITRITE UR Negative LAB L400.3780 Negative /ul High 10 OCCULT BLOOD-UR LAB L400.3800 Negative /ul LEUK Normal ESTERASE Negative LAB L400.4050 0-5 /hpf WBC 0 Normal SEEN LAB L400.4100 0-5 /hpf Normal RBC-UA 0-5 SEEN LAB L400.4150 0-5 /hpf SQUAM 0 Normal EPI SEEN LAB L400.4300 None Seen /hpf 0 Normal BACTERIA SEEN LAB L400.4350 <or=2+ /hpf 0 Normal MUCUS, URINE SEEN Performed By: #### L400.0001 #### [facility] [address] [place], [place], [address] Observed: 08/24/2018 Status: F Source: [place] LEGIONELLA ANTIGEN 3:16 AM [facility] URINE REPOSITORY Legionella, UR Legionella Antigen result interpretation: Negative Presumptive negative for Legionella pneumophila serogroup 1 antigen in urine, suggesting no recent or current infection. Legionella Ag, Urine Negative (See interpretation below) Performed By: #### M300.4500 #### [facility] [address] [place], [address] STREP Observed: 08/24/2018 Status: F Source: [place] PNEUMONIAE ANTIG(UR,CSF) 3:16 AM [facility] REPOSITORY S pneumo Ag URINE INTERPRETATION Negative Urine Presumptive negative for pneumococcal pneumonia, suggesting no current or recent pneumococcal infection. Infection due to S pneumoniae cannot be ruled out since the antigen present in the sample may be below the detection limit of the test. Strep pneumo Test Negative URINE (See interpretation below) Performed By: #### M300.4600 #### [facility] [address] [place], [address] Observed: 08/24/2018 Status: F Source: [place] CULTURE, URINE 3:16 AM [facility] REPOSITORY Order Date: 08/24/18 Urine Culture Culture exhibits no growth. Performed By: #### M100.0650 #### [facility] [address] [place], [address] EMERGENCY DEPARTMENT Observed: 08/24/2018 Status: F Source: [place] SUMMARY 2:13 AM [facility] REPOSITORY [facility] Medical Records Department [address] [place] [address] Emergency Department Summary 08/24/18 0134 MR#: [id number] Acct: [id number] Name: DAVID BRICENO Sr. Rep #: [id number] : 1945 73 From: Butch Robertson PCP: Tati Medina MD Status: REG ER - ER Visit Summary Date of Service: 08/24/18 Chief Complaint: Shortness of breath, cough History of Present Illness: The patient is a 73 M progressive shortness of breath since April. Reports productive sputum, subjective fever, chills, sweats. History of COPD with no home oxygen. History of ND, CABG x3 in the past. States has chest discomfort with cough. No similar symptoms of ND. [facility] saw his dean of boys Angel Luis back in June. States there was abnormalities that referred him Dr. Sol. Workup is in process. Family states a positive M protein. No confirmed diagnosis at this time. However family states had multiple x-rays of his bones. Remote tobacco 20 years ago. Pulmonary fibrosis history. PCP placed him on a Z-Fredo 3 days ago, no improvement of symptoms. No nausea or vomiting or diarrhea. No urinary symptoms. Family states he is wheezing. Symptoms do help with aerosol treatments. Family states he has not had a CT scan of his chest. However, records note he did have a CT of the chest in April noting nodules in pneumonia at that time along with findings of his pulmonary fibrosis with bronchiolectasis. Reports did have an outpatient x-ray 3 days ago and reporting chronic changes. Physical Examination: General: Alert and oriented 3, no acute distress HEENT: Normocephalic, atraumatic. Moist mucosa membranes Neck: supple, nontender. Cardiovascular: Regular tachycardic rate and rhythm, no murmurs Respiratory: Expiratory wheezing throughout, no accessory muscle use. Abdomen: Soft, nontender, nondistended Extremities: Nontender, no edema, pulses intact 4 Neuro: no focal neurological deficits. Test Results: Sinus tachycardia rate of 108, no ST or T wave changes. PVCs noted. White count 17.6. Lactic acid 1.5. trop: negative. Chest x-ray: progressive pneumonia Emergency Department Course and Treatment: Patient expiratory wheezing, slight tachypnea, tachycardia, 84% on room air. Placed on oxygen, aerosol treatments were given. On oxygen his O2 is improved. Sepsis protocol initiated. Review patient's workup on the , noted chest x-ray reporting bibasilar infiltrates. And a white count of 17. He was started on Levaquin IV due to failing outpatient therapy. Repeat white count 17.6, lactate is 1.5. Reevaluation wheezing improving. O2 stable, blood pressure stable. Review of x-ray does have concerns of pneumonia. Will discuss with hospitalist for admission. Treatment Plan: [] Disposition: Admission Impression: 1. Communicare pneumonia 2. COPD exacerbation 3. Hypoxemia This note was generated with Tri[employer] dictation software. It may contain incorrect words, spelling, and punctuation that were not noted in review of the chart prior to signing ED Disposition - Plan for ED Patient: Disposition: Acute Care Hospital [facility] Chief Complaint: Shortness of Breath Diagnosis: COPD (chronic obstructive pulmonary disease), Community acquired pneumonia, Hypoxemia Referrals: aTti Medina MD [Primary Care Provider] - What to do if you have Problems For any increased pain, shortness of breath, bleeding, nausea or vomiting, chest pain, or any unexpected problems, contact your Primary Care Provider. Call [facility] ([phone]) or report to the closest Emergency Room. Call 911 if necessary. 08/24/18 0213 <Electronically signed by Butch Robertson> Date Butch Robertson Cosigner Signature (If Indicated): Date CC: Tati Medina MD Observed: 08/24/2018 Status: F Source: [place] CULTURE, BLOOD (WB) 1:30 AM [facility] REPOSITORY BC No growth in 5 days. Performed By: #### M200.1000 #### [facility] [address] [facility] [place], [address] Observed: 08/24/2018 Status: F Source: [place] CULTURE, SPUTUM 1:24 AM [facility] REPOSITORY Order Date: 08/24/18 Gram Stain Acceptable Specimen? Yes (<25 Epithelial cells per/lpf) Gram Stain 3+ White Blood Cells 1+ Epithelial cells 3+ Gram positive cocci in chains and clusters 1+ Gram negative rods 1+ Gram positive rods Resp. Culture Mixed normal respiratory mike. No Haemophilus, Streptococcus pneumoniae, beta-hemolytic Streptococcus or Staphylococcus aureus isolated. Performed By: #### M100.0800 #### [facility] [address] [facility]. [place], [place], [address] CHEST 1 VIEW Observed: 08/24/2018 Status: F Source: [place] (PORTABLE) 1:20 AM [facility] REPOSITORY [facility] Imaging Services [address] [place] [address] Chest 1 View (Portable) MR#: [id number] Acct: [id number] Name: DAVID BRICENO . Rep #: [id number] : 1945 73 From: Carmencita Maloney MD PCP: Tati Medina MD Status: REG ER Study: Chest 1 View (Portable) Date of Exam: 08/24/18 Exam# [id number] Ordering Dr: Butch Badillo DO STUDY: X-RAY CHEST REASON FOR EXAM: Male, 73 years old. Shortness breath, cough and fever. TECHNIQUE: Single AP portable view of the chest. COMPARISON: August 20, [address] of the chest dated May 04, 2018.. FINDINGS: Patient has had a sternotomy. Cardiac monitoring leads are present. The lungs are expanded. There is heterogeneous airspace consolidation throughout the right lung and at the left lung base. There is reticulonodular interstitial thickening present in both lungs apparently related to known pulmonary fibrosis. There is no demonstrated pleural abnormality. There is borderline cardiomegaly. Normal mediastinum and carlos. There is prominence of the pulmonary hilar arteries without peripheral pulmonary vascular congestion. There is atherosclerotic calcification of the aortic arch with tortuosity. Normal visualized thoracic spine. Normal visualized ribs, clavicles, and shoulders. There is no demonstrated abnormality of the visualized soft tissue structures of the upper abdomen. RAD/Chest 1 View (Portable) IMPRESSION: Increasing right-sided airspace consolidation and left-sided airspace consolidation since previous study consistent with pneumonia. Electronically Signed: Carmencita Maloney MD at 2:01 EST , Service support , CC: Tati Medina MD; Butch Badillo Environmental Consultant: Signed CBC W/DIFF, AUTOMATED Collected: 08/24/2018 Status: F Source: [place] 1:16 AM [facility] REPOSITORY TYPE CODE TESTS RESULT OUT OF RANGE REFERENCE UNITS LAB L100.1000 4.4-11.0 K/mm3 High WBC 17.6 LAB L100.1200 4.6-6.2 M/mm3 Normal RBC 4.99 LAB L100.1300 13.0-16.5 g/dl Normal HGB 15.2 LAB L100.1400 40-54 % Normal HCT 44.3 LAB L100.1500 80-94 fL Normal MCV 88.8 LAB L100.1600 27.0-32.0 pg Normal MCH 30.5 LAB L100.1700 32-36 g/gl Normal MCHC 34.3 LAB L100.1810 11.6-14.6 % Normal RDW CV 13.5 LAB L100.1820 35.1-43.9 fl Normal RDW SD 43.6 LAB L100.1900 150-450 K/mm3 High PLT 469 LAB L100.2000 6.2-12.0 fl Normal MPV 9.6 LAB L100.2100 47-70 % High NEUT% 81.8 LAB L100.2200 19-41 % Low LY% 9.3 LAB L100.2300 0-10 % Normal MONO% 6.7 LAB L100.2400 0-5 % Normal EO% 0.9 LAB L100.2500 0-1 % Normal BASO% 0.5 LAB L100.2550 0.0-0.9 % Normal IM GRAN % 0.800 Result Comment: IG% - Immature Granulocytes (promyelocytes, myelocytes and metamyelocytes) > 1% indicates that a LEFT SHIFT is Present. LAB L100.2620 2.0-7.7 X10 3/uL High Absolute Neut 14.4 LAB L100.2720 0.83-4.51 X10 3/ul Normal Absolute Lymph 1.64 Performed By: #### L100.0100 #### [facility] [address] [place], [address] PROTHROMBIN TIME W/INR Collected: 08/24/2018 Status: F Source: [place] 1:16 AM [facility] REPOSITORY TYPE CODE TESTS RESULT OUT OF RANGE REFERENCE UNITS LAB L300.4150 11.7-14.9 SECONDS High PROTIME 15.0 LAB L300.4200 Normal INR 1.2 Performed By: #### L300.3900, L300.4310 #### [facility] [address] [place], [address] PARTIAL THROMBOPLAST Collected: 08/24/2018 Status: F Source: [place] TIME 1:16 AM [facility] REPOSITORY TYPE CODE TESTS RESULT OUT OF RANGE REFERENCE UNITS LAB L300.4310 24.1-36.2 Seconds Normal PTT 32.0 Performed By: #### L300.3900, L300.4310 #### [facility] [address] [place], [address] LACTIC ACID Collected: 08/24/2018 Status: F Source: [place] 1:16 AM [facility] REPOSITORY Order Comment: Yes/No query for Sepsis Lactate Rule Y TYPE CODE TESTS RESULT OUT OF RANGE REFERENCE UNITS LAB L503.6005 0.4-2.0 mmol/L Normal LACTIC ACID 1.5 Performed By: #### L503.6005 #### [facility] [address], [address] COMPREHENSIVE METABOLIC Collected: 08/24/2018 Status: F Source: [place] LIGHT 1:16 AM [facility] REPOSITORY TYPE CODE TESTS RESULT OUT OF RANGE REFERENCE UNITS LAB L501.0100 74-106 mg/dL High GLU 118 Result Comment: Fasting Glucose result from 100 to 125 mg/dL suggests IMPAIRED HOMEOSTASIS per A.D.A. criteria. Please note revised GLUCOSE reference range effective 2017. LAB L501.1000 7-18 mg/dL Normal BUN 9 LAB L501.1100 0.70-1.30 mg/dL Normal CREAT,SERUM 0.86 Result Comment: The validity of the calculated GFR AND GFRAA in patients over 70 years has not been determined. Clinical correlation is essential. LAB L501.1110 >60 mL/min Normal EST GFR 92 Result Comment: Non- GFR Calc LAB L501.1115 >60 mL/min Normal EST GFR - AA 111 Result Comment: GFR Calc LAB L501.1255 ml/min Normal Estimated CRCL 74.22 LAB L501.1300 10-20 RATIO Normal BUN/CRE 10.4 LAB L501.1500 6.4-8. g/dL Normal 2 T PROT 8.1 LAB L501.1800 3.2-5. g/dL Low 0 ALB 2.7 LAB L501.1950 2.2-4. g/dL High 2 GLOB 5.4 LAB L501.2000 0.9-2. RATIO Low 4 A/G 0.5 LAB L501.2200 8.5-10 mg/dL Low .1 CA 8.3 LAB L501.4100 15-37 U/L Normal AST 27 LAB L501.4305 45-117 U/L Normal ALK P 92 LAB L501.4405 16-61 U/L Normal ALT 27 LAB L501.4600 0.20-1 mg/dL Normal .00 T BILI 1.00 LAB L501.5300 136-14 mmol/L Low 5 NA 132 LAB L501.5600 3.5-5. mmol/L Normal 1 K 3.9 LAB L501.5900 98-107 mmol/L Normal CL 100 LAB L501.6100 21.0-3 mmol/L Normal 2.0 CO2 23.0 LAB L501.6200 5-15 Normal GAP 9 Performed By: #### L500.4050, L501.4010 #### [facility] [address] [place], [address] TROPONIN-I Collected: 08/24/2018 Status: F Source: [place] 1:16 AM [facility] REPOSITORY TYPE CODE TESTS RESULT OUT OF RANGE REFERENCE UNITS LAB L501.4010 <0.045 ng/mL Normal < 0.015 TROPONIN-I Result Comment: TROPONIN-I EXPECTED VALUES <0.045 Negative 0.045 - 0.590 Consistent with Cardiac Damage > OR = 0.600 Critical Value Not every elevated troponin is indicative of ND. These values should be used with clinical judgement in examining the patient's clinical picture for diagnosis. To establish a diagnosis of ND versus myocardial injury, there must be a demonstrated rise and/or fall in the troponin values, in addition to ischemic symptoms, EKG changes, new regional wall motion abnormality, and/or angiographical evidence. PLEASE NOTE: REFERENCE RANGES EDITED 18 Performed By: #### L500.4050, L501.4010 #### [facility] [address] [place], [address] Observed: 08/24/2018 Status: F Source: [place] CULTURE, BLOOD (WB) 1:16 AM [facility] REPOSITORY BC No growth in 5 days. Performed By: #### M200.1000 #### [facility] [address] [place], [address] CHEST PA AND LATERAL Observed: 08/20/2018 Status: F Source: [place] 2:00 PM [facility] REPOSITORY [facility] Imaging Services [address] [address] Chest PA and Lateral MR#: [id number] Acct: [id number] Name: DAVID BRICENO Sr. Rep #: [id number] : 1945 M 73 From: Carmencita Maloney MD PCP: Tati Medina MD Status: REG CLI Study: Chest PA and Lateral Date of Exam: 08/20/18 Exam# [id number] Ordering Dr: Tati Medina MD STUDY: X-RAY CHEST REASON FOR EXAM: Male, 73 years old. Cough and fever. TECHNIQUE: PA and lateral views of the chest. COMPARISON: CT of the chest dated May 04, 2018. FINDINGS: Patient has had a sternotomy. There is hyperinflation of the lungs consistent with chronic obstructive lung disease (COPD). There is mixed interstitial and airspace opacities at the lung bases primarily. There may be more diffuse interstitial thickening in both lungs as well. There is no demonstrated pleural abnormality. There is borderline cardiomegaly. Normal mediastinum and carlos. Normal visualized pulmonary arteries. There is atherosclerotic calcification of the aortic arch with tortuosity. There is demineralization of the osseous structures. Normal visualized ribs, clavicles, and shoulders. There is no demonstrated abnormality of the visualized soft tissue structures of the upper abdomen. RAD/Chest PA and Lateral IMPRESSION: Patchy bilateral basilar interstitial and air space opacities presumably representing acute pneumonia. There is probable sequela of pulmonary fibrosis as well. Electronically Signed: Carmencita Maloney MD at 5:38 EST , Service support , CC: Tati Medina MD Environmental Consultant: Signed CBC W/DIFF, AUTOMATED Collected: 08/20/2018 Status: F Source: [place] 1:40 PM [facility] REPOSITORY TYPE CODE TESTS RESULT OUT OF RANGE REFERENCE UNITS LAB L100.1000 4.4-11.0 K/mm3 High WBC 17.3 LAB L100.1200 4.6-6.2 M/mm3 Normal RBC 4.79 LAB L100.1300 13.0-16.5 g/dl Normal HGB 14.7 LAB L100.1400 40-54 % Normal HCT 43.7 LAB L100.1500 80-94 fL Normal MCV 91.2 LAB L100.1600 27.0-32.0 pg Normal MCH 30.7 LAB L100.1700 32-36 g/gl Normal MCHC 33.6 LAB L100.1810 11.6-14.6 % Normal RDW CV 13.4 LAB L100.1820 35.1-43.9 fl High RDW SD 44.2 LAB L100.1900 150-450 K/mm3 Normal PLT 410 LAB L100.2000 6.2-12.0 fl Normal MPV 10.4 LAB L100.2100 47-70 % High NEUT% 76.9 LAB L100.2200 19-41 % Low LY% 11.6 LAB L100.2300 0-10 % Normal MONO% 8.9 LAB L100.2400 0-5 % Normal EO% 1.6 LAB L100.2500 0-1 % Normal BASO% 0.5 LAB L100.2550 0.0-0.9 % Normal IM GRAN % 0.500 Result Comment: IG% - Immature Granulocytes (promyelocytes, myelocytes and metamyelocytes) > 1% indicates that a LEFT SHIFT is Present. LAB L100.2620 2.0-7.7 X10 3/uL High Absolute Neut 13.3 LAB L100.2720 0.83-4.51 X10 3/ul Normal Absolute Lymph 2.01 LAB L100.4500 Normal SMEAR COMMENT SCANNED Performed By: #### L100.0100 #### [facility] [address]. [place], [place], [address] THYROID STIM HORMONE Collected: 08/20/2018 Status: F Source: [place] (TSH) 1:40 PM [facility] REPOSITORY TYPE CODE TESTS RESULT OUT OF RANGE REFERENCE UNITS LAB L501.9520 0.358-3.74 uIU/mL Normal TSH 2.05 Performed By: #### L501.9520 #### [facility] [address] [place], [place], [address] PROT ELECT UR 24 HR Collected: 08/17/2018 Status: F Source: [place] 7:45 AM [facility] REPOSITORY TYPE CODE TESTS RESULT OUT OF REFERENCE UNITS RANGE LAB UTPROT 0-20 mg/dL 8 Protein Ur Conc (UEPG24) LAB 24TPGM <0.16 gm/24 Hr 0.18 High Protein Urine 24hr (UEPG24) LAB 24UALB % 20.5 Albumin, 24 hr LAB UA1G24 % 6.3 Alpha 1 Globul, 24hr LAB UA2G24 % 29.5 Alpha 2 Globul, 24hr LAB UBEG24 % 24.5 Beta Globulin, 24hr LAB UGAG24 % 19.1 Gamma Globulin, 24hr LAB UPEI24 No Interpretatio definitive M n, 24hr protein is identified on protein electrophoresis. LAB MSPK24 0.00 gm/24 Hr 0.00 M Sam Quant/24 Hr LAB UPES24 Reviewed Staff Review, by socorro Richter M.D. ([id number]) Performed By: #### UEPG24, U24MPA #### [facility] [address] [place], [place] [address] MONOCLON PROT 24 UR Collected: 08/17/2018 Status: F Source: [place] 7:45 AM [facility] REPOSITORY TYPE CODE TESTS RESULT OUT OF REFERENCE UNITS RANGE LAB UMPA No M protein is identified. No UMPA M protein is Result identified. LAB UMPSTF UMPA Reviewed by Staff Review Rosy Knowles M.D. ([id number]) Performed By: #### UEPG24, U24MPA #### [facility] [address] [place], [place] [address] XR BONE SURVEY Observed: 08/12/2018 Status: F Source: [place] ROUTINE 4:44 PM [facility] REPOSITORY * * *Final Report* * * DATE OF EXAM: Aug 12 2018 4:44PM WRX [id number] - XR BONE SURVEY ROUTINE / PROCEDURE REASON: Monoclonal gammopathy * * * * Physician Interpretation * * * * Examination: XR BONE SURVEY ROUTINE History: Monoclonal gammopathy Technique: XR BONE SURVEY ROUTINE Comparison: None RESULT: 21 images were obtained for a bone survey. These include calvarium, spine, ribs, pelvis, upper and lower extremities. Degenerative changes are seen throughout the spine. No focal lytic or blastic abnormality is seen. Discontinued wires overlie the lower thorax and upper abdomen. Atheromatous calcification is seen within an ectatic aorta. IMPRESSION: NO DEFINITE FOCAL LYTIC OR BLASTIC ABNORMALITY. Environmental Consultant: FRANCISCO Transcribe Date/Time: Aug 12 2018 8:42P Dictated by : SUZI VARGAS MD This examination was interpreted and the report reviewed and electronically signed by: SUZI VARGAS MD on Aug 12 2018 8:46PM EST [id number] Observed: 08/12/2018 Status: COMPLETED Source: [place] 4:34 PM [facility] REPOSITORY HNO ID: [id number] Author: Clinton Sol Service: (none) Author Type: Physician Type: Progress Notes Filed: 08/12/2018 4:45 PM Note Text: Consult requested by Dr. Moise for my opinion recommendations regarding management of a patient with a monoclonal protein. The impression and plan will be communicated by way of the shared electronic record. HPI: The patient is a 73-year-old male who has a past medical history significant for coronary artery disease, prostate cancer, hypertension, GERD, hyperlipidemia, COPD, pulmonary fibrosis and renal lithiasis. He has a long history of joint pain. Mainly the pain affects feet, knees, hips and shoulders as well as the hands bilaterally. He was recently evaluated by Dr. Moise and diagnosed with rheumatoid arthritis, rheumatoid factor positive. However as part of the workup patient was found to have an IgG kappa monoclonal protein. This was discovered by serum electrophoresis. Amount was not quantitated. Spot urine had no evidence of monoclonal protein. Patient has no history of recurrent fever although he does have night sweats on occasion. His appetite is fair but his weight is been stable for several years. Other laboratory work on 07/09/2018 included a normal serum CK 57 international units per liter. Normal creatinine at 0.9 mg/dL. CBC showing a white count of 14,900. Differential showed a increase in neutrophils to 9800. Lymphocytes were 3300. Hemoglobin was 16.2 g/dL with a platelet count of 344,000. Sedimentation rate was 46 mm/h. Total serum protein was 7.8 g/dL. Albumin was 3.9 g/dL. Liver chemistries were normal. Uric acid was 5.3 mg/dL. PMH, medications and allergies personally reviewed by me today. Any changes documented in appropriate section. ROS: Constitutional: See above. Neuro: Denies ZAMORA, vertigo, dizziness and imbalance. Denies symptoms of neuropathy. HEENT: No recent change in voice, vision or hearing. Resp: Occasional cough with some sputum production. No h/o hemoptysis. Denies shortness of breath at rest. CVS: Denies exertional chest pain, PND, orthopnea and LE edema. GI: Denies dysgeusia. Denies symptoms of stomatitis. Denies dysphagia and odynophagia. Denies reflux, n/v, change in bowel habits and abdominal pain. : Denies dysuria or gross hematuria. Endo: Denies hot flashes. Denies polyuria and polydipsia. Denies heat and cold intolerance. Musculoskeletal: See above. Derm: Denies rash. Denies jaundice and diffuse pruritis. Heme: Denies unusual bleeding and unexplained bruising. Psych: Normal mood. PHYSICAL EXAM: Vitals: Blood pressure 119/76, pulse 74, temperature 36.6 ?C (97.8 ?F), temperature source Oral, height 175.3 cm (5' 9), weight 91.4 kg (201 lb 8 oz). Well-appearing and in no acute distress. EYES: Sclerae are anicteric bilaterally. NECK: Supple. LYMPHATIC: There is no palpable cervical, supraclavicular or axillary adenopathy. RESPIRATORY: Inspiratory breath sounds are of normal intensity in all gallego. No rales, wheezes or rhonchi appreciated. CARDIOVASCULAR: Rhythm is regular. Normal intensity S1/S2. There is no gallop. ABDOMEN: The abdomen is nondistended. No organomegaly. No tenderness. Extremities: No swelling or edema. SKIN: No jaundice or rash. No petechiae. NEUROLOGIC: pruner II-XII are grossly intact. No focal motor weakness. MUSCULOSKELETAL: No muscle wasting. ASSESSMENT/PLAN: (D47.2) Monoclonal gammopathy (primary encounter diagnosis) Assessment: -IgG kappa MP. -I discussed with the patient and his family the spectrum of plasma cell disorders and the stepwise work up to be undertaken. Plan: -Labs today. -Bone survey. -24 hour urine collection for electrophoresis and immunofixation. -Possible bone marrow biopsy pending results of above. -OV in 1-2 weeks. Total sbfm-pa-lrxk time was >30 minutes with greater than 20 minutes spent discussing the issues outlined above and/or coordinating care. Clinton Sol, PROTEIN ELECTROPHOR. Collected: 08/12/2018 Status: F Source: [place] 3:57 PM [facility] REPOSITORY TYPE CODE TESTS RESULT OUT OF REFERENCE UNITS RANGE LAB TPSPE 6.0-8.4 g/dL Total Protein, SPE 7.4 LAB ALBE 3.37-4.23 gm/dL Albumin 3.46 LAB A1GL 0.18-0.31 gm/dL Alpha 1 Globulin High 0.33 LAB A2GL 0.52-0.97 gm/dL Alpha 2 Globulin High 1.04 LAB BEGL 0.84-1.36 gm/dL Beta Globulin 1.27 LAB GAGL 0.70-1.44 gm/dL Gamma Globulin 1.29 LAB SPEINT Interpretation SEE COMMENT Result Comment: No definitive M protein is identified on protein electrophoresis. LAB LOC M Protein N/A Location LAB GPERDL 0.00 gm/dL M Sam 0.00 Concentratn LAB SPESTF SPE Staff Review Reviewed by Rosy Knowles M.D. ([id number]) Performed By: #### SEPG, SERMPA #### [facility] [address] [address] MONCLNL PROTEIN, SER Collected: 08/12/2018 Status: F Source: [place] 3:57 PM [facility] REPOSITORY TYPE CODE TESTS RESULT OUT OF REFERENCE UNITS RANGE LAB IGG 717-1411 mg/dL High IgG 1490 LAB IGA 78-391 mg/dL High IgA 418 LAB IGM 53-334 mg/dL IgM 106 LAB FKAPS 3.30-19.40 mg/L High Lagro, 42.0 Free, Serum Result Comment: Rarely, increased serum free light chains values may not be detected due to antigen excess phenomenon. Results should always be correlated with other laboratory results and clinical findings. LAB FLAMS 5.7-26.3 mg/L Lambda, Free, 17.0 Serum Result Comment: Rarely, increased serum free light chains values may not be detected due to antigen excess phenomenon. Results should always be correlated with other laboratory results and clinical findings. LAB KLRAT 0.26-1.65 2.47 High K/L Ratio, Serum LAB MPAR No M protein is identified. No M MPA Result protein is identified. LAB MPASTF Staff Review Reviewed by Rosy Knowles M.D. ([id number]) Performed By: #### BEE CALLAHAN #### [facility] [address] [place], [place] [address] COMP METABOLIC PANEL Collected: 08/12/2018 Status: F Source: [place] 3:56 PM [facility] REPOSITORY TYPE CODE TESTS RESULT OUT OF REFERENCE UNITS RANGE LAB TP 6.3-8.0 g/dL Protein, Total 7.4 LAB ALB 3.9-4.9 g/dL Albumin Low 3.8 LAB CA 8.5-10.2 mg/dL Calcium, Total 9.4 LAB TBIL 0.2-1.3 mg/dL Bilirubin, Total 0.5 LAB ALKP 38-113 U/L Alkaline Phosphatase 78 LAB AST 14-40 U/L AST 19 LAB GLU 74-99 mg/dL Glucose 95 LAB BUN 7-21 mg/dL BUN 9 LAB CRET 0.73-1.22 mg/dL Creatinine Low 0.70 LAB NA 136-144 mmol/L Sodium 136 LAB K 3.7-5.1 mmol/L Potassium 4.1 LAB CL 97-105 mmol/L Chloride 101 LAB CO2 22-30 mmol/L CO2 24 LAB AGAP 9-18 mmol/L Anion Gap 11 LAB ALT 10-54 U/L ALT 13 LAB GFRAA eGFR- >60 Amer. LAB GFRNAA . eGFR-All Other Races >60 Result Comment: eGFR (Estimated GFR) Units of measure: mL/min/1.73 meters squared eGFR is derived from the reexpressed MDRD Study equation using the following parameters: serum creatinine, age, gender and race. The creatinine assay has been calibrated to be traceable to IDMS. An eGFR <60 mL/min/1.73m2 for >3 months is consistent with chronic kidney disease. Refer to KDOQI guidelines for clinical interpretation. In patients with unstable renal function, e.g. those with acute kidney injury, the eGFR may not accurately reflect actual GFR. LD Collected: 08/12/2018 Status: F Source: [facility] 3:56 PM [facility] REPOSITORY TYPE CODE TESTS RESULT OUT OF RANGE REFERENCE UNITS LAB LD 135-225 U/L LD 192 B2 MICROGLOBULIN Collected: 08/12/2018 Status: F Source: [place] 3:56 PM [facility] REPOSITORY TYPE CODE TESTS RESULT OUT OF REFERENCE UNITS RANGE LAB B2M 0.8-2.2 mg/L B2 Microglobulin High 2.3 Performed By: #### B2M, SERVIS #### [facility] [address] [place], [place] [id number] VISCOSITY, SERUM Collected: 08/12/2018 Status: F Source: [place] 3:56 PM [facility] REPOSITORY TYPE CODE TESTS RESULT OUT OF REFERENCE UNITS RANGE LAB SERVIS 1.3-1.8 1.7 Viscosity, Serum Performed By: #### B2M, SERVIS #### [facility] [address] [place], [place] [address] CNOVSP Observed: 08/12/2018 Status: COMPLETED Source: [place] 3:00 PM [facility] REPOSITORY Visit (SP) Office (HEMAWS) DAVID BRICENO ([id number]) 1945 M Date Time Provider Department 08/12/18 3:00 PM CLINTON SOL During your visit today, we recorded the following information about you: Temperature Pulse Blood pressure Weight 97.8 degrees 74/minute 119/76 91.4 kg Height 1.753 m Clinton Sol DO 08/12/2018 4:45 PM Signed Consult requested by Dr. Moise for my opinion recommendations regarding management of a patient with a monoclonal protein. The impression and plan will be communicated by way of the shared electronic record. HPI: The patient is a 73-year-old male who has a past medical history significant for coronary artery disease, prostate cancer, hypertension, GERD, hyperlipidemia, COPD, pulmonary fibrosis and renal lithiasis. He has a long history of joint pain. Mainly the pain affects feet, knees, hips and shoulders as well as the hands bilaterally. He was recently evaluated by Dr. Moise and diagnosed with rheumatoid arthritis, rheumatoid factor positive. However as part of the workup patient was found to have an IgG kappa monoclonal protein. This was discovered by serum electrophoresis. Amount was not quantitated. Spot urine had no evidence of monoclonal protein. Patient has no history of recurrent fever although he does have night sweats on occasion. His appetite is fair but his weight is been stable for several years. Other laboratory work on 07/09/2018 included a normal serum CK 57 international units per liter. Normal creatinine at 0.9 mg/dL. CBC showing a white count of 14,900. Differential showed a increase in neutrophils to 9800. Lymphocytes were 3300. Hemoglobin was 16.2 g/dL with a platelet count of 344,000. Sedimentation rate was 46 mm/h. Total serum protein was 7.8 g/dL. Albumin was 3.9 g/dL. Liver chemistries were normal. Uric acid was 5.3 mg/dL. PMH, medications and allergies personally reviewed by me today. Any changes documented in appropriate section. ROS: Constitutional: See above. Neuro: Denies ZAMORA, vertigo, dizziness and imbalance. Denies symptoms of neuropathy. HEENT: No recent change in voice, vision or hearing. Resp: Occasional cough with some sputum production. No h/o hemoptysis. Denies shortness of breath at rest. CVS: Denies exertional chest pain, PND, orthopnea and LE edema. GI: Denies dysgeusia. Denies symptoms of stomatitis. Denies dysphagia and odynophagia. Denies reflux, n/v, change in bowel habits and abdominal pain. : Denies dysuria or gross hematuria. Endo: Denies hot flashes. Denies polyuria and polydipsia. Denies heat and cold intolerance. Musculoskeletal: See above. Derm: Denies rash. Denies jaundice and diffuse pruritis. Heme: Denies unusual bleeding and unexplained bruising. Psych: Normal mood. PHYSICAL EXAM: Vitals: Blood pressure 119/76, pulse 74, temperature 36.6 ?C (97.8 ?F), temperature source Oral, height 175.3 cm (5' 9), weight 91.4 kg (201 lb 8 oz). Well-appearing and in no acute distress. EYES: Sclerae are anicteric bilaterally. NECK: Supple. LYMPHATIC: There is no palpable cervical, supraclavicular or axillary adenopathy. RESPIRATORY: Inspiratory breath sounds are of normal intensity in all gallego. No rales, wheezes or rhonchi appreciated. CARDIOVASCULAR: Rhythm is regular. Normal intensity S1/S2. There is no gallop. ABDOMEN: The abdomen is nondistended. No organomegaly. No tenderness. Extremities: No swelling or edema. SKIN: No jaundice or rash. No petechiae. NEUROLOGIC: pruner II-XII are grossly intact. No focal motor weakness. MUSCULOSKELETAL: No muscle wasting. ASSESSMENT/PLAN: (D47.2) Monoclonal gammopathy (primary encounter diagnosis) Assessment: -IgG kappa MP. -I discussed with the patient and his family the spectrum of plasma cell disorders and the stepwise work up to be undertaken. Plan: -Labs today. -Bone survey. -24 hour urine collection for electrophoresis and immunofixation. -Possible bone marrow biopsy pending results of above. -OV in 1-2 weeks. Total zjqz-ih-zqyd time was >30 minutes with greater than 20 minutes spent discussing the issues outlined above and/or coordinating care. Clinton Sol DO Referring Provider: MARIA DE JESUS MOISE JR [[id number]] Allergies As of Date: 08/12/2018 Noted Allergy Reaction ACEON (PERINDOPRIL ERBUMINE) 11/22/2013 14 - Other: See Comments Comments: Allergy testing AUGMENTIN (AMOXICILLIN-POT CLAVUL*03/04/2013 5 - Intolerance CITRUS FRUITS 11/22/2013 14 - Other: See Comments Comments: Allergy testing COLCHICINE 09/27/2013 7 - Swelling HYDROCODONE 09/27/2013 1 - Mental Status Change Comments: sweating NAPROXEN 01/28/2013 14 - Other: See Comments Comments: Blood pressure went up, sweaty PREDNISONE 03/21/2011 14 - Other: See Comments Comments: BP goes up, weak, dizzy Date Reviewed: 08/12/2018 Reviewed by: Hanna (Alejo) ALEJO Cordova - Fully Assessed Reason for Visit: New Patient [172] Primary Visit Diagnosis:Monoclonal gammopathy [D47.2] Order(s):KAPPA/HARMAN,FREE,SER [SQKLFRS] Order #: [id number] FUTURE PROTEIN ELECTROPHORESIS W/INTERP [SQSEPG] Order #: [id number] FUTURE MONOCLONAL PROTEIN, SERUM (BLOOD) [SQSERMPA] Order #: [id number] FUTURE PROT ELEC UR 24HR W/M SPIKE AND INTERP [[id number]] Order #: [id number] FUTURE MONOCLONAL PROT 24 UR W/INTERP [EJW84QIV] Order #: [id number] FUTURE B2 MICROGLOBULIN B [SQB2M] Order #: [id number]. #:[id number] SERUM VISCOSITY [SQSERVIS] Order #: [id number]. #:[id number] LD LACTATE DEHYDRO [SQLD6] Order #: [id number] FUTURE COMP METABOLIC PANEL [SQCMP] Order #: [id number] FUTURE XR BONE SURVEY ROUTINE [[id number]] Order #: [id number] FUTURE Follow-up and Disposition History Recorded Prescriptions as of 08/12/2018 Sig: ROSUVASTATIN 5 MG TABLET Take 5 mg by mouth once daily. AMLODIPINE 5 MG TABLET Take 10 mg by mouth once reymundo* VITAMIN D3-VITAMIN K2 ORAL Take by mouth. CULTURELLE PROBIOTICS ORAL Take by mouth. SIMVASTATIN 40 MG TABLET 40 mg daily at bedtime. METOPROLOL TARTRATE 25 MG TAB* twice daily. OMEPRAZOLE 20 MG CAPSULE,DILSHAD* Take 20 mg by mouth once reymundo* NITROGLYCERIN 0.4 MG SUBLINGU* Dissolve 0.4 mg under the ton* MULTIVITAMIN CAPSULE Take 1 capsule by mouth once * ASPIRIN 81 MG TABLET Take 81 mg by mouth. 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 7:40 AM [facility] REPOSITORY TYPE CODE TESTS RESULT OUT OF RANGE REFERENCE UNITS LAB IGG(LOINC) 700-1600 mg/dL IgG 1420 Performed By: #### IGG #### [address], [place] [address] IGA Collected: 07/31/2018 Status: F Source: [facility] 7:40 AM [facility]ALTH SYSTEM REPOSITORY TYPE CODE TESTS RESULT OUT OF RANGE REFERENCE UNITS LAB IGA(LOINC) 70-400 mg/dL IgA 380 Performed By: #### IGA #### [facility] [address] [place], [place] [address] IGM Collected: 07/31/2018 Status: F Source: [facility] 7:40 AM [facility]ALTH SYSTEM REPOSITORY TYPE CODE TESTS RESULT OUT OF RANGE REFERENCE UNITS LAB IGM(LOINC) 40-230 mg/dL IgM 108 Performed By: #### IGM #### [facility] [address] [address] MONOCLONAL PROTEIN, Collected: 07/31/2018 Status: F Source: [facility] BLOOD 7:40 AM HEALTH SYSTEM REPOSITORY TYPE CODE TESTS RESULT OUT OF REFERENCE UNITS RANGE LAB SIFEX(LOIN C) Monoclonal SEE BELOW Protein, Blood Result Comment: MPA Serum IgG 4440 764-8106 mg/dL MPA Serum IgA 400 H 78-391 mg/dL MPA Serum IgM 105 53-334 mg/dL Serum Lagro 1320 H 534-1267 mg/dL Serum Lambda 550 253-653 mg/dL MPA Selene/Mcallister Ratio 2.40 1-3 MPA Result SEE BELOW AB NOMP M protein is present. MPA Interpretation SEE BELOW Atypical restricted bands are present in the IgG and kappa regions. Consistent with IgG kappa monoclonal gammopathy. Staff Review SEE BELOW Reviewed by Ronda Dodge MD ([id number]) Performing Laboratory: [facility] [address] [place] [id number] Performed By: #### SIFEX #### [place] [address] MONOCLONAL PROTEIN, Collected: 07/31/2018 Status: F Source: [facility] URINE 7:40 AM HEALTH SYSTEM REPOSITORY TYPE CODE TESTS RESULT OUT OF REFERENCE UNITS RANGE LAB UIFEX(LOIN C) Monoclonal SEE BELOW Protein, Urine Result Comment: UMPA Result SEE BELOW NOMP No M protein is identified. UMPA Interpretation SEE BELOW Test Not Indicated UMPA Staff Review SEE BELOW Reviewed by Ronda Dodge MD ([id number]) Performing Laboratory: [facility] [address] [place] [address] Performed By: #### UIFEX #### [facility] [address] [address] PULMONARY VISIT REPORT Observed: 07/27/2018 Status: F Source: [place] 5:39 PM [facility] REPOSITORY [facility] [address] [place] [address] OFFICE VISIT Date of Service: 07/27/18 MR#: [id number] Acct: [id number] Name: DAVID BRICENO Sr. Rep #: [id number] : 1945 Provider: Waldo Hein MD Age/Sex: 73/M Location: [facility].PMW Status: Signed Assessment AND Plan Problems 1. Centrilobular emphysema J43.2 2. Pulmonary fibrosis J84.10 Plan Patient with mixed ventilatory defect noted on pulmonary function testing. This would be expected given patient's pulmonary fibrosis and long smoking history. Patient did have some improvement following bronchodilators, but this did not reach clinical significance by ATS criteria. After review of the risks, benefits and alternatives, patient has agreed to a trial of Breo therapy. Patient was personally instructed on the use of the Ellipta inhaler. Patient with significant desaturation on ambulation. This will need to be followed closely. Signs and symptoms of exacerbation and sick policy were reviewed in detail. Patient voiced understanding. Initiation of combination inhaler. Call with any signs and symptoms of exacerbation. May repeat pulmonary function test in the future to evaluate response. Medications New: Plan Detail Follow Up 6 Months (CSM) HPI 2 M FU: Chief Complaint: Review of test results Details: Patient is a 73-year-old male, currently under the care of Dr. Medina, who presents for evaluation secondary to recent test results. Since last visit, patient denies any ER visits, hospitalizations or prednisone burst. Patient does report subjective improvement in overall condition. Patient estimates that he is used his ProAir 3 times in the last 2 months. Patient continues to report a cough on a daily basis productive of clear to white sputum. Patient denies any hemoptysis, chest pain or palpitations. Patient continues to have some dyspnea on exertion, but overall feels that it is improved compared to previous. Patient denies any recent environmental exposures. Patient denies any recent sinus congestion or watery eyes. Patient has been outside working to cut down trees and is still reporting some dyspnea on exertion. Patient denies any lower extremity swelling. Patient was irritated that we have not received the records from [facility]. Patient states that he is willing to go to retrieve them personally if necessary. Testing personally reviewed with the patient Walking oximetry (06/04/2018): Ambulated 1038 feet over the course of 6 minutes and desaturated to as low as 91% Complete PFT (06/16/2018): Irreversible moderate mixed ventilatory defect with a symmetric reduction diffusing capacity. 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 [Ecotrin] 81 mg PO DAILY@0800 05/04/18 [History Confirmed 07/27/18] Benzonatate [Tessalon Perle] 200 mg PO TID PRN PRN #20 cap 05/04/18 [Rx Confirmed 07/27/18] Cholecalciferol (Vitamin D3) [Vitamin D3] 5,000 unit PO DAILY 05/04/18 [History Confirmed 07/27/18] Hydroxyzine Pamoate 25 mg PO QHS PRN 05/04/18 [History Confirmed 07/27/18] L.acidoph,Paracasei, B.lactis [Probiotic] 10 tab PO DAILY 05/04/18 [History Confirmed 07/27/18] Metoprolol Tartrate 25 mg PO BID 05/04/18 [History Confirmed 07/27/18] Multivitamin [Daily Multiple Vitamin] 1 ea PO DAILY 05/04/18 [History Confirmed 07/27/18] Omeprazole 20 mg PO DAILY 05/04/18 [History Confirmed 07/27/18] Simvastatin 40 mg PO QHS 05/04/18 [History Confirmed 07/27/18] albuterol sulfate HFA 90 mcg/actuation aerosol inhaler 2 puff INHALATION Q4H PRN 05/18/18 [History Confirmed 07/27/18] fluticasone 100 mcg-vilanterol 25 mcg/dose powder for inhalation 1 inh INHALATION Q24H #60 ea 07/27/18 [Rx Confirmed 07/27/18] rosuvastatin 5 mg tablet 5 mg PO DAILY 07/27/18 [History Confirmed 07/27/18] PFS Medical History History of ND (myocardial infarction) (Chronic) CAD (coronary artery disease) (Chronic) Pulmonary fibrosis (Chronic) COPD (chronic obstructive pulmonary disease) (Chronic) Surgical History History of bilateral cataract extraction (Resolved) Status post trigger finger release (Resolved) History of cholecystectomy (Resolved) History of bilateral carpal tunnel release (Resolved) History of prostatectomy (Resolved) History of coronary artery bypass graft x 3 (Resolved) History of colonoscopy (Resolved) Family History Father Myocardial infarction Mother Myocardial infarction Brother Lung cancer Daughter Colostomy in place Asthma Kidney disease Son Aneurysm Social History Smoking Status: Former smoker quit date: 10/06/96 pack-years: 92 second hand exposure: Yes alcohol intake: current alcohol intake frequency: a few times a month Alcohol type: beer substance use type: does not use Review of Systems Const CONSTITUTIONAL: Negative anorexia, body ache, chills, daytime sleepiness, fever(s), night sweats, oral thrush, stops breathing during sleep, weight loss, sleeping in chair, fatigue, weight loss, weight gain, frequent colds, seasonal allergies, other, headache(s) or orthopnea EETM Ear Nose Throat Mouth: Positive hard of hearing; negative hoarseness, dry mouth in morning, change in vision, itchy eyes, eye pain, swallowing Difficulty, ear pain, headache(s), mouth pain, nasal congestion, nasal discharge, sinus pain, sinus pressure, sore throat, other, nose bleed or post nasal drip Cardio Cardiovascular: Negative chest pain, chest pain at rest, chest pain with activity, irregular heart rhythm, edema, shortness of breath when lying down, palpitations, other or murmur Resp Respiratory: Positive as per HPI, cough cough: Positive productive color: Positive clear, yellow and green and inhalers; negative shortness of breath, pain with cough, wheezing, chest congestion, chest tightness, pain on inspiration, increase use of rescue inhalers, snoring, apnea or other Gastro Gastrointestional: Negative bloody stools, change in appetite, difficulty swallowing, reflux, hematemesis, melena stool, loose stool, constipation or other Genitourinary: Negative blood in urine, nocturia, pain with urination or other Musc Musculoskeletal: Negative body pain, back pain, neck pain or other Skin/Breast Skin/Breast: Negative dry skin, itching, unusual bruising, breast lump, other or rash Neuro Neurological: Negative restless legs, confusion, weakness or other Psych Psychocological: Negative abnormal sleep pattern, anxiety, thoughts of hurting self/others, hopelessness or other Lymph Lymphatic: Negative easy bleeding, easy bruising, other or swollen lymph nodes Exam Const Constitutional: Positive conversant, cooperative, in no acute respiratory distress, healthy appearing, well developed, well nourished, good hygiene and obese; negative wearing supplemental oxygen, frail appearing, dyspenic or appears older than stated age Head Head: Positive normocephalic and atraumatic; negative cyanosis of lips/distal nose, frontal sinus tenderness or maxillary sinus tenderness Eyes Eye: Positive clear conjunctiva; negative nystagmus, scleral abnormality or cataract present Ears Ear: Positive hard of hearing and external ears normal Nose Nose: Positive external nose normal, septum normal and no nasal discharge; negative epistaxis or nasal polyp Mouth Mouth: Positive oral mucosae normal, no lesions, dentures and crowded posterior oropharynx; negative post nasal drip, malodorous breath or oral thrush present Mallampati Score: III: Mallampati Score Neck Neck: Positive normal visual inspection, full ROM and trachea midline; negative lymphadenopathy or JVD Chest Wall Chest: Positive symmetric chest movement and increased A/P diameter; negative crepitus or tenderness Resp lung sounds: Positive diminished, wheeze present on forced exhalation and prolonged expiratory time; negative wheezes, rhonchi, rales, use of accessory muscles or dullness to percussion Cardio Cardiac: Positive regular rate, regular rhythm, S1 normal and S2 normal; negative murmur, rub or gallop GI GI: Positive normal to inspection, normal bowel sounds and obese; negative distended, ascites or epigastric tenderness Genitourinary: Positive deferred Musc Musculoskeletal: Positive steady gait; negative using an assistive device for ambulation, kyphosis or scoliosis Skin Pulmonary Skin Exam: Positive intact; negative rash, lesion, ulcers, erythema or dermal atrophy Pulses Pulse: Yes radial pulses present Extremities Extremities: Yes capillary refill normal, No clubbing, No cyanosis, No edema, No stasis dermatitis Neuro Neurologic: Yes conversant, Yes no focal neuro deficits, Yes normal coordination, Yes normal concentration, Yes cooperative, Yes normal cognition Lymph Lymphatic: No lymphadenopathy Psych Appearance: Positive grossly normal Mental Status: Positive mental status grossly normal Mood: Positive congruent mood Affect: Positive normal affect Office Procedures Inhaler Training Inhaler Training Procedure performed by: Waldo Hein Inhaler Training: Yes personally trained on inhaler use, sample provided, expresses understanding and continue to monitor Coding Level of Care Code Off vis,est,level 3 Diagnoses Centrilobular emphysema J43.2 COPD type: emphysema Emphysema type: centrilobular Pulmonary fibrosis J84.10 07/27/18 1739 <Electronically signed by Waldo Hein MD> Date Waldo Hein MD Cosigner Signature: Date (if applicable) CC: Tati Medina MD AMB OFFICE-PROGRESS Observed: 07/03/2018 Status: F Source: [facility] NOTES-PROVIDER 11:02 AM [facility] REPOSITORY Patient: DAVID BRICENO Age: 73 years Sex: Male : 1945 Associated Diagnoses: None Author: EULA HERNANDEZ, THAN Visit Information Visit type: Scheduled follow-up. Accompanied by: Spouse. Source of history: Self. Referral source: Self. History limitation: None. Chief Complaint Follow-up appointment because of coronary artery disease status post CABG, hypertension, hyperlipidemia and chronic shortness of breath. Patient has seen a retail customer service specialist told to have a pulmonary fibrosis and also be referred to machine accountant for possible rheumatic arthritis. Patient will forward copy of the chest x-ray and CAT scan to me. He denies any chest pain or any dizziness or syncope . He has not been taking Zocor and noticed improvement in the muscle aches. Chart and medications reviewed. Review of Systems Constitutional: No fever, No chills, No sweats. Eye: Negative. Ear/Nose/Mouth/Throat: Negative. Respiratory: No shortness of breath, No cough. Cardiovascular: No chest pain, No syncope. Gastrointestinal: No nausea, No vomiting. Genitourinary: Negative. Gynecologic Hematology/Lymphatics: No bruising tendency, No bleeding tendency. Endocrine: Negative. Musculoskeletal: Negative. Integumentary: No rash, No abrasions. Psychiatric: No anxiety, No depression. Health Status Allergies: Allergies (5) Active Reaction Augmentin None Documented Coly Mycin M None Documented HYDROcodone None Documented naproxen None Documented predniSONE None Documented Current medications: Home Medications (10) Active amLODIPine 10 mg oral tablet See Instructions aspirin 81 mg oral tablet 81 mg = 1 tab(s), ORAL, DAILY HANNA D3 W/K2 Metoprolol Tartrate 25 mg oral tablet See Instructions Nitrostat 0.4 mg sublingual tablet See Instructions omeprazole 20 mg oral delayed release capsule 20 mg = 1 caps, ORAL, DAILY ProAir RespiClick 90 mcg/inh inhalation powder 2 puffs, Inhalation, ONCE Probiotic Formula oral capsule . , ORAL, DAILY RAW ONE VITAMINS simvastatin 40 mg oral tablet 1 tabs, ORAL, QHS Problem list: Active Problems (8) Chest pain Coronary Atherosclerosis [place] Coronary Atherosclerosis Unspec Type Vessel [place]/Graft GERD (gastroesophageal reflux disease) Hyperlipidemia Hypertension Benign Hypertension Unspec SOB (shortness of breath) Histories Past Medical History: No qualifying data available Family History: Father Heart disease. Mother Heart disease. Procedure history: INSCSION L KNEE in 2016 at 71 Years. Cardiac Catheterization x3 on 10/28/2005 at 60 Years. Comments: 07/27/2014 14:Cece Ac 03/02/00; 03/02/99 Operative Result on 10/28/2005 at 60 Years. Social History Social & Psychosocial Habits Alcohol 09/14/2014 Use: Current Frequency: 1-2 times per week Other Comment: Daily Caffeine: Consumes on average 3 cups of regular coffee per day - 07/27/2014 14:Cece Hernandez Substance Abuse 09/14/2014 Risk Assessment: Denies Substance Abuse Tobacco 07/27/2014 Use: Former smoker Comment: QUIT IN 1999 - 07/27/2014 14:Cece Hernandez . Physical Examination Temperature 98.3 (10:40) Systolic Blood Pressure 126 (10:59) Diastolic Blood Pressure 70 (10:59) Pulse 72 (10:40) SpO2 No result Respiratory Rate No result VS/Measurements Documented vital signs, Vital Signs (last 24 hrs) Last Charted Heart Rate Apical 72 bpm (JUL 03 10:39) SBP 126 mmHg (JUL 03 10:59) DBP 70 mmHg (JUL 03 10:59) Weight 92 kg (JUL 03 10:39) Height 173 cm (JUL 03 10:39) BMI 30.74 (JUL 03 10:39) General: Alert and oriented, No acute distress. Skin: No cyanosis, Not jaundiced. Eye: Normal conjunctiva. HENT: Normocephalic. Neck: Supple, Non-tender, No carotid bruit, No jugular venous distention, No lymphadenopathy, No thyromegaly. Respiratory: Symmetrical chest wall expansion, No chest wall tenderness. Breath sounds: Bilateral, Anterior, Posterior, No wheezing, No crackles present. Cardiovascular: Normal rate, Regular rhythm, No murmur, No gallop, Good pulses equal in all extremities, Normal peripheral perfusion, No edema. Gastrointestinal: Soft, Non-tender, Normal bowel sounds, No organomegaly. Genitourinary: No costovertebral angle tenderness. Lymphatics: No lymphadenopathy neck, axilla, groin. Musculoskeletal: Normal range of motion, Normal strength, No tenderness, No deformity. Integumentary: Warm. Neurologic: Alert, Oriented, No focal deficits. Psychiatric: Cooperative, Normal judgment. Review / Management No qualifying data available Impression and Plan 1. Coronary artery disease status post CABG asymptomatic. 2. Hyperlipidemia total cholesterol 123, HDL 42, triglycerides 62 and LDL 68. 3. Blood pressure is controlled. Plan. 1. Discussed diet with the patient. 2. We will start Crestor 5 mg and monitor symptoms closely. 3. Follow-up appointment in 3 months fasting we will check the lipid profile. Electronically signed by Dr. Casey Baldwin. PULMONARY FUNCTION Observed: 06/17/2018 Status: F Source: [place] TEST 10:31 AM [facility] REPOSITORY [facility] Pulmonary Services/Neurology [address] [place] [address] MR#: [id number] Acct: [id number] Name: DAVID BRICENO . Rep #: [id number] : 1945 73 From: Adryan Silva DO Referring Dr: Waldo Hein MD Status: REG CLI Ordering Dr: Date: Location: [facility] Sex: M C INTRODUCTION: The patient is a 73-year-old male that presents for pulmonary function testing secondary to a diagnosis of COPD. Respiratory therapy reports good patient effort. Bronchodilators were used during testing. INTERPRETATION: Forced expiration spirometry demonstrates the presence of a moderate large airways obstructive ventilatory defect. There was no significant response to aerosolized bronchodilators, based upon strict ATS criteria. Spirograms are of good quality and do not plateau indicating slow emptying of the lungs. Body plethysmography was performed and reveals a decreased TLC to 4.6 L, 77% of predicted, indicative of a mild restrictive ventilatory defect. The remainder of the lung volumes are symmetrically reduced. Diffusing capacity by single breath CO is mildly reduced at 62% of predicted. IMPRESSION: These pulmonary function studies demonstrate the presence of an irreversible moderate mixed ventilatory defect with a symmetric reduction in diffusing capacity. There are no previous pulmonary function studies available for comparison. 06/17/18 1031 <Electronically signed by Adryan Silva DO> Date Adryan Silva DO CC: Waldo Hein MD; Tati Medina MD Date Dictated: 06/17/18 1028 Date Transcribed: 06/17/18 1028 Environmental Consultant: DB Signed 6 MINUTE WALK TEST Observed: 06/04/2018 Status: F Source: [place] 1:26 PM [facility] REPOSITORY [facility] Pulmonary Services/Neurology [address] [place] [address] MR#: [id number] Acct: [id number] Name: DAVID BRICENO Sr. Rep #: [id number] : 1945 72 From: Adryan Silva DO Referring Dr: Waldo Hein MD Date: Ordering Dr: Sex: M C Location: PSN PSN 6 Minute Walk Test - 6 Minute Walk Test 6 Minute Walk Test: 6 Minute Walk Test PSN:6-Minute Walk Test Start: 06/04/18 12:35 Freq: Status: Active Protocol: [id number] Document 06/04/18 12:35 [facility] (Rec: 06/04/18 12:37 AM[facility] [id number]) 6 Minute Walk Test Date Performed 06/04/18 Time Performed 12:15 Height 5 ft 8 in Weight: 203 lb Weight in Pounds 203.[address]: Waldo Hein Assistive device used: None Pre-test Oxygen Delivery Method Room Air Pulse Ox (%) 96 Pulse Rate (60-100 beats/min) 64 Dyspnea Krystal Scale (0-10) 3 1st minute Oxygen Delivery Method Room Air Pulse Ox (%) 92 Pulse Rate (60-100 beats/min) 72 Dyspnea Krystal Scale (0-10) 3 2nd minute Oxygen Delivery Method Room Air Pulse Ox (%) 92 Pulse Rate (60-100 beats/min) 83 Dyspnea Krystal Scale (0-10) 3 3rd minute Oxygen Delivery Method Room Air Pulse Ox (%) 91 Pulse Rate (60-100 beats/min) 86 Dyspnea Krystal Scale (0-10) 3 4th minute Oxygen Delivery Method Room Air Pulse Ox (%) 92 Pulse Rate (60-100 beats/min) 87 Dyspnea Krystal Scale (0-10) 3 5th minute Oxygen Delivery Method Room Air Pulse Ox (%) 92 Pulse Rate (60-100 beats/min) 88 Dyspnea Krystal Scale (0-10) 3 6th minute Oxygen Delivery Method Room Air Pulse Ox (%) 92 Pulse Rate (60-100 beats/min) 89 Dyspnea Krystal Scale (0-10) 3 Post-test Oxygen Delivery Method Room Air Pulse Ox (%) 94 Pulse Rate (60-100 beats/min) 71 Dyspnea Krystal Scale (0-10) 3 Full Laps Walked 17 Partial Lap, Number of Tiles Walked 35 Total Distance Walked (ft) 1038 - Interpretation Interpretation: The patient ambulated 1038 feet over the course of 6 minutes beginning on room air without assistive devices or breaks. Pretesting oxygen saturation was noted to be 96% on room air. With ambulation, the armand oxygen saturation was 91%. This represents a significant exertional oxygen desaturation, consistent with a pulmonary limitation to exercise tolerance. - Recommendations Recommendations: There is no indication for the use of supplemental oxygen at this time. However, close interval follow-up is recommended, given the degree of oxygen desaturation noted during this study. 06/04/18 1326 <Electronically signed by Adryan Silva DO> Date Adryan Silva DO CC: Date Dictated: 06/04/181323 Date Transcribed: 06/04/181323 Environmental Consultant: Adryan Silva DO Signed PULMONARY VISIT REPORT Observed: 05/19/2018 Status: F Source: [place] 6:01 AM [facility] Pulmonary Medicine of [address] [place] [address] OFFICE VISIT Date of Service: 05/18/18 MR#: [id number] Acct: [id number] Name: BRICENODAVID Sr. Rep #: [id number] : 1945 Provider: Waldo Hein MD Age/Sex: 72/M Location: [facility] Status: Signed Assessment AND Plan Problems 1. Pulmonary fibrosis J84.10 2. Centrilobular emphysema J43.2 Plan Patient is finding of emphysematous changes on CT scan of the chest are not surprising given patient's prolonged smoking history. Will obtain old records from [employer] for comparison. 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 Unclear chronicity of fibrotic changes in the base of chest imaging. These may be revealed on previous CT of the abdomen. Will obtain a complete pulmonary function test and walking oximetry for quantification and clarification of lung function and evaluation of exertional hypoxemia. We will also obtain a rheumatologic workup for possible secondary causes of pulmonary fibrosis. No indication for steroids or additional antibiotics at this time. Obtain complete PFT, walking oximetry and rheumatologic workup. Orders Orders: Medications New: Discontinued: Plan Detail Follow Up 2 Months (NORA) HPI ER F/U: Chief Complaint: Cough Details: Patient is a 72-year-old male, currently under the care of Dr. Lizarraga, who presents for evaluation secondary to cough, abnormal imaging and recent ER visit. Patient does report a long history of a chronic cough productive of phlegm on a daily basis. However, patient presented to [facility] emergency room on 05/04/2018 secondary to increased shortness of breath and a sharp stabbing chest pain of the left chest without any radiation. Patient had reported night sweats and chills. In the ER, patient was noted to have a left-sided pneumonia, but also findings consistent with possible pulmonary fibrosis and presents today for further evaluation. Patient reports a history of smoking in the past and has been admitted with multiple exacerbations reportedly secondary to COPD. Patient feels improved after being placed on Levaquin at the ER. Patient does have a cough productive of clear to white sputum on a daily basis. Patient does state that he deals with breathlessness on a daily basis, but has learned to deal with it. Patient has used albuterol inhalers in the past with little subjective improvement in overall condition. Patient states albuterol typically leads to palpitations and mild tremor, which keeps him from using it frequently. Patient has never required intubation previously, but had been seen by Dr. Manzo at [facility] previously. Patient estimates that he had a pulmonary function test approximately 10 years ago. Patient denies any previous history of CT of the chest. However, patient did have a CT of the abdomen at [facility] in the past. Patient was not told of any fibrotic changes at that time. Patient is unaware of the test results. Patient has been tested by machine accountant and reportedly had gouty arthritis. 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 Patient states that he has wrapped metal and asbestos and burned this in order to perform welds in the 70s. Patient stated that the metal needed to be at high temperature and asbestos was used frequently. Patient states that he is welded multiple types of metal since that time. Patient denies any exposure to tuberculosis. Patient does not have a significant travel history. Patient denies any trauma or inhalation injury that he can recall. Documentation reviewed 20 pages of documentation from [facility] ER on 05/04/2018, imaging reports and PCP documentation were reviewed. Of note, patient does have a reported allergy to prednisone, but reaction is unclear. Patient is also reportedly allergic to naproxen, reaction is not given. Patient is established with Dr. Miles in urology and Dr. Baldwin in cardiology. CT scan of the chest was personally reviewed with the patient. Areas of honeycombing were reviewed along with emphysematous changes. Intake Vital Signs05/18/18 Height 5 ft 8 in 05/18/18 Weight: 92.533 kg Intake Visit Reasons: ER F/U Accompanied by: Is patient in pain?: No Allergies amoxicillin [From Augmentin] Allergy (Verified 05/18/18 13:35) Other clavulanic acid [From Augmentin] Allergy (Verified 05/18/18 13:35) Other hydrocodone Allergy (Verified 05/18/18 13:35) Other Iodinated Contrast- Oral and IV Dye [DYEE] Allergy (Verified 05/18/18 13:35) Angioedema naproxen Allergy (Verified 05/18/18 13:35) Other prednisone Allergy (Verified 05/18/18 13:35) Other Medications Amlodipine [Norvasc] 10 mg PO DAILY 05/04/18 [History Confirmed 05/18/18] Aspirin E.C. [Ecotrin] 81 mg PO DAILY@0800 05/04/18 [History Confirmed 05/18/18] Benzonatate [Tessalon Perle] 200 mg PO TID PRN PRN #20 cap 05/04/18 [Rx Confirmed 05/18/18] Cholecalciferol (Vitamin D3) [Vitamin D3] 5,000 unit PO DAILY 05/04/18 [History Confirmed 05/18/18] Hydroxyzine Pamoate 25 mg PO QHS PRN 05/04/18 [History Confirmed 05/18/18] L.acidoph,Paracasei, B.lactis [Probiotic] 10 tab PO DAILY 05/04/18 [History Confirmed 05/18/18] Metoprolol Tartrate 25 mg PO BID 05/04/18 [History Confirmed 05/18/18] Multivitamin [Daily Multiple Vitamin] 1 ea PO DAILY 05/04/18 [History Confirmed 05/18/18] Omeprazole 20 mg PO DAILY 05/04/18 [History Confirmed 05/18/18] Simvastatin 40 mg PO QHS 05/04/18 [History Confirmed 05/18/18] albuterol sulfate HFA 90 mcg/actuation aerosol inhaler 2 puff INHALATION Q4H PRN 05/18/18 [History Confirmed 05/18/18] PFSH Medical History History of ND (myocardial infarction) (Chronic) CAD (coronary artery disease) (Chronic) Pulmonary fibrosis (Chronic) COPD (chronic obstructive pulmonary disease) (Chronic) Surgical History History of bilateral cataract extraction (Resolved) Status post trigger finger release (Resolved) History of cholecystectomy (Resolved) History of bilateral carpal tunnel release (Resolved) History of prostatectomy (Resolved) History of coronary artery bypass graft x 3 (Resolved) History of colonoscopy (Resolved) Family History Father Myocardial infarction Mother Myocardial infarction Brother Lung cancer Daughter Colostomy in place Asthma Kidney disease Son Aneurysm Social History Smoking Status: Former smoker quit date: 10/06/96 pack-years: 92 second hand exposure: Yes alcohol intake: current alcohol intake frequency: a few times a month Alcohol type: beer substance use type: does not use Review of Systems Const CONSTITUTIONAL: Positive fatigue; negative anorexia, body ache, chills, daytime sleepiness, fever(s), night sweats, oral thrush, stops breathing during sleep, weight loss, sleeping in chair, weight loss, weight gain, frequent colds, seasonal allergies, other, headache(s) or orthopnea EETM Ear Nose Throat Mouth: Positive hard of hearing (Hearing aids in place); negative hoarseness, dry mouth in morning, change in vision, itchy eyes, eye pain, swallowing Difficulty, ear pain, nose bleed, mouth pain, nasal congestion, nasal discharge, post nasal drip, sinus pain, sinus pressure, sore throat, other or headache(s) Cardio Cardiovascular: Negative chest pain, chest pain at rest, chest pain with activity, irregular heart rhythm, edema, palpitations, murmur, other or shortness of breath when lying down Resp Respiratory: Positive as per HPI, shortness of breath shortness of breath: Positive with activity, cough cough: Positive productive color: Positive green, yellow and clear and chest tightness; negative pain with cough, wheezing, chest congestion, pain on inspiration, inhalers, increase use of rescue inhalers, snoring, apnea or other Gastro Gastrointestional: Negative bloody stools, change in appetite, difficulty swallowing, reflux, hematemesis, melena stool, loose stool, constipation or other Genitourinary: Negative blood in urine, nocturia, pain with urination or other Musc Musculoskeletal: Negative body pain, back pain, neck pain or other Skin/Breast Skin/Breast: Negative dry skin, itching, rash, unusual bruising, breast lump or other Neuro Neurological: Negative restless legs, confusion, weakness or other Psych Psychocological: Negative abnormal sleep pattern, anxiety, thoughts of hurting self/others, hopelessness or other Lymph Lymphatic: Negative easy bleeding, easy bruising, swollen lymph nodes or other Exam Const Constitutional: Positive conversant, cooperative, in no acute respiratory distress, healthy appearing, well developed, well nourished and good hygiene; negative wearing supplemental oxygen or smells of smoke Head Head: Positive normocephalic and atraumatic; negative cyanosis of lips/distal nose, frontal sinus tenderness or maxillary sinus tenderness Eyes Eye: Positive clear conjunctiva; negative nystagmus, scleral abnormality or cataract present Ears Ear: Positive hard of hearing (Hearing aids in place) and external ears normal Nose Nose: Positive external nose normal, septum normal and no nasal discharge; negative epistaxis or nasal polyp Mouth Mouth: Positive oral mucosae normal, no lesions and crowded posterior oropharynx; negative post nasal drip, malodorous breath or oral thrush present Mallampati Score: III: Mallampati Score Neck Neck: Positive normal visual inspection, full ROM and trachea midline; negative lymphadenopathy or JVD Chest Wall Chest: Positive symmetric chest movement and increased A/P diameter; negative crepitus or tenderness Resp lung sounds: Positive diminished, wheeze present on forced exhalation and prolonged expiratory time; negative wheezes, rhonchi, rales, use of accessory muscles or dullness to percussion Cardio Cardiac: Positive regular rate, regular rhythm, S1 normal and S2 normal; negative murmur, rub or gallop GI GI: Positive normal to inspection and normal bowel sounds; negative distended, ascites or epigastric tenderness Genitourinary: Positive deferred Musc Musculoskeletal: Positive steady gait; negative using an assistive device for ambulation, kyphosis or scoliosis Skin Pulmonary Skin Exam: Positive intact; negative rash, lesion, ulcers, erythema or dermal atrophy Pulses Pulse: Yes radial pulses present Extremities Extremities: Yes capillary refill normal, No clubbing, No cyanosis, No edema Neuro Neurologic: Yes conversant, Yes no focal neuro deficits, Yes normal coordination, Yes normal concentration, Yes cooperative, Yes normal cognition, Yes understands questions Lymph Lymphatic: No lymphadenopathy Psych Appearance: Positive grossly normal Mental Status: Positive mental status grossly normal Mood: Positive congruent mood Affect: Positive normal affect Coding Level of Care Code Off vis,new,level 5 Diagnoses Pulmonary fibrosis J84.10 Centrilobular emphysema J43.2 COPD type: emphysema Emphysema type: centrilobular 05/19/18 0601 <Electronically signed by Waldo Hein MD> Date Waldo Hein MD Cosigner Signature: Date (if applicable) CC: Tati Medina MD ERYTHROCYTE SED RATE Collected: 05/18/2018 Status: F Source: [place] 2:34 PM [facility] REPOSITORY TYPE CODE TESTS RESULT OUT OF RANGE REFERENCE UNITS LAB L102.0000 0-20 mm/hr High SED RATE 23 Performed By: #### L101.9900 #### [facility] [address] [place], [place], [address] CRP, HIGH SENSITIVITY Collected: 05/18/2018 Status: F Source: [place] CARDIAC 2:34 PM [facility] REPOSITORY TYPE CODE TESTS RESULT OUT OF RANGE REFERENCE UNITS LAB L501.6750 mg/L High CRP HIGH 7.62 SENS Result Comment: Low Relative Risk of CVD <1.0 mg/L Average Relative Risk of CVD 1.0 - 3.0 mg/L High Relative Risk of CVD >3.0 mg/L Performed By: #### L501.6750, L505.7010 #### [facility] [address] [place], [place], [address] RHEUMATOID FACTOR Collected: 05/18/2018 Status: F Source: [place] 2:34 PM [facility] REPOSITORY TYPE CODE TESTS RESULT OUT OF REFERENCE UNITS RANGE LAB L505.7010 <15 IU/mL High RHEUMATOID FAC 96.0 Performed By: #### L501.6750, L505.7010 #### [facility] [address] [place], [address] ANCA Collected: 05/18/2018 Status: F Source: [place] 2:34 PM [facility] REPOSITORY TYPE CODE TESTS RESULT OUT OF RANGE REFERENCE UNITS LAB L3300.1225 Neg:<1:20 titer CYTOPLASMIC Normal Ab <1:20 LAB L3300.1250 Neg:<1:20 titer PERINUCLEAR Normal Ab <1:20 Result Comment: The presence of positive fluorescence exhibiting P-ANCA or C-ANCA patterns alone is not specific for the diagnosis of Oswaldo's Granulomatosis (WG) or microscopic polyangiitis. Decisions about treatment should not be based solely on ANCA IFA results. The International ANCA Group Consensus recommends follow up testing of positive sera with both AL- 3 and MPO-ANCA enzyme immunoassays. As many as 5% serum samples are positive only by EIA. Ref. AM J Clin Pathol 1999;111:507-513. LAB L3300.1285 Neg:<1:20 titer Normal Atypical pANCA <1:20 Result Comment: The atypical pANCA pattern has been observed in a significant percentage of patients with ulcerative colitis, primary sclerosing cholangitis and autoimmune hepatitis. Performed By: #### L3300.1200, L4600.0100 #### [facility] (refer to report for specific site) refer to report for address and phone number CCP IGG ANTIBODIES Collected: 05/18/2018 Status: F Source: [place] 2:34 PM [facility] REPOSITORY TYPE CODE TESTS RESULT OUT OF REFERENCE UNITS RANGE LAB L4600.0100 0-19 units High ANTI-CCP > 250 [id number] Result Comment: Negative <20 Weak positive 20 - 39 Moderate positive 40 - 59 Strong positive >59 Performed at: [facility] [address] [id number] Toll Line Mechanic: Arnulfo Puckett PhD, Phone: [phone] Performed at: [facility] [address] [id number] Toll Line Mechanic: Tristan Nelson MD, Phone: [phone] Performed By: #### L3300.1200, L4600.0100 #### [facility] (refer to report for specific site) refer to report for address and phone number JEAN PAUL W/ REFLEX MULT Collected: 05/18/2018 Status: F Source: [place] CONFIRM 2:34 PM [facility] REPOSITORY TYPE CODE TESTS RESULT OUT OF RANGE REFERENCE UNITS LAB L3100.5475 Negative Normal Negative JEAN PAUL-DIRECT Result Comment: Performed at: [facility] [address] [id number] Toll Line Mechanic: Arnulfo Puckett PhD, Phone: [phone] Performed By: #### L3100.5450 #### [facility] (refer to report for specific site) refer to report for address and phone number 12 LEAD ELECTROCARDIOGRAM Observed: 05/07/2018 Status: F Source: [place] 9:51 AM [facility] REPOSITORY [facility] Cardiovascular Services [address] [place] [address] 12 Lead EKG 05/04/18 1136 MR#: [id number] Acct: [id number] Name: DAVID BRICENO [place] Sr. Rep #: [id number] : 1945 72 From: Clinton Rutledge MD Attending Dr: Status: DEP ER Ordering Dr: Rosalba Elena DO Date: 05/04/18 Location: ED Sex: M C Admitted: Test Reason : Blood Pressure : / mmHG Vent. Rate : 070 BPM Atrial Rate : 070 BPM P-R Int : 172 ms QRS Dur : 098 ms QT Int : 400 ms P-R-T Axes : 056 009 012 degrees QTc Int : 432 ms Sinus rhythm with occasional Premature ventricular complexes Inferior infarct , age undetermined , cannot be excluded Poor R wave progression Abnormal ECG Confirmed by ALEE HERNANDEZ, CLINTON ([id number]), communications editor ALONZO MALONEY ([id number]) on 05/07/2018 9:51:13 AM Referred By: FRED Confirmed By:CLINTON RUTLEDGE MD 05/07/18 0951 Date Clinton Rutledge MD CC: Tati Medina MD; Rosalba Elena DO Signed DISCHARGE INSTRUCTION Observed: 05/04/2018 Status: F Source: [place] 3:21 PM [facility] REPOSITORY [facility] Medical Records Department [address] [place] [address] Discharge Instruction 05/04/18 1519 MR#: [id number] Acct: [id number] Name: DAVID BRICENO Sr. Rep #: [id number] : 1945 72 From: Rosalba Elena DO PCP: Tati Medina MD Status: REG ER ED Disposition - Plan for ED Patient: Chief Complaint: Cough Instructions: ED Pneumonia Adult Prescriptions: Benzonatate [Tessalon Perle] 200 mg PO TID PRN PRN #20 cap PRN Reason: Cough Levofloxacin [Levaquin] 750 mg PO DAILY #7 tab Referrals: Tati Medina MD [Primary Care Provider] - Adryan Silva DO [STAFF PHYSICIAN] - 3-5 Days What to do if you have Problems For any increased pain, shortness of breath, bleeding, nausea or vomiting, chest pain, or any unexpected problems, contact your Primary Care Provider. Call [facility] ([phone]) or report to the closest Emergency Room. Call 911 if necessary. 05/04/18 1521 <Electronically signed by Rosalba Elena DO> Date Rosalba Elena DO Cosigner Signature (If Indicated): Date CC: Tati Medina MD EMERGENCY DEPARTMENT Observed: 05/04/2018 Status: F Source: [place] SUMMARY 3:19 PM [facility] REPOSITORY [facility] Medical Records Department [address] [place] [address] Emergency Department Summary 05/04/18 1516 MR#: [id number] Acct: [id number] Name: DAVID BRICENO Sr. Rep #: [id number] : 1945 72 From: Rosalba Elena DO PCP: Tati Medina MD Status: REG ER - ER Visit Summary Date of Service: 05/04/18 Chief Complaint: [Cough and left-sided chest pain] History of Present Illness: The patient is a 72 M [presents the emergency department with cough for over a week. Patient states that he is bringing up some green thick phlegm. Patient denies any fevers. Patient also complains of a sharp stabbing pain in his left chest without any radiation. Patient complains of increased fatigue. Patient has had chills and sweats. He denies recent travel or surgery. Patient does have a history of coronary artery disease, hypertension, and high cholesterol.] Physical Examination: [HEENT-PERRLA, EOMI. Cranial nerves II through XII grossly intact. TMs clear. Mucous membranes moist. No adenopathy. Cardiovascular-regular rate and rhythm without murmur or ectopy Lungs-clear to auscultation, chest wall stable without crepitus or subcu emphysema. Patient does have some tenderness over left anterior chest wall that seems to reproduce his pain. Abdomen-normoactive bowel sounds, soft, nontender, no rebound or rigidity, no peritoneal signs. Extremities-intact 4, normal range of motion, normal pulses, atraumatic] Test Results: [EKG obtained on arrival showed a sinus rhythm with a ventricular rate of 70 bpm with occasional PVCs. CBC with differential showed a white count of 12.7, hemoglobin 16, hematocrit 48, platelets 267. Chemistries were unremarkable. Troponin was less than 0.015. D-dimer was elevated 1.31. Chest x-ray showed nothing acute. CTA of the chest showed no evidence for PE patient however was noted to have chronic interstitial lung disease as well as subsegmental consolidation in the left lower lobe suspicious for acute pneumonia.] Emergency Department Course and Treatment: [Patient was treated with Levaquin p.o. I feel he can be managed as an outpatient given that he is not hypoxic or tachypneic. ] Treatment Plan: Referral to pulmonology on-call Dr. Silva. Patient will be started on Levaquin, Tessalon Perles, and albuterol MDI.] Disposition: [Discharged home in stable condition]. Patient advised to return if increasing shortness of breath or condition should worsen in any way. Impression: [Left lower lobe pneumonia] This note was generated with Tri[employer]o dictation software. It may contain incorrect words, spelling, and punctuation that were not noted in review of the chart prior to signing ED Disposition - Plan for ED Patient: Chief Complaint: Cough Referrals: Tati Medina MD [Primary Care Provider] - What to do if you have Problems For any increased pain, shortness of breath, bleeding, nausea or vomiting, chest pain, or any unexpected problems, contact your Primary Care Provider. Call [facility] ([phone]) or report to the closest Emergency Room. Call 911 if necessary. 05/04/18 1519 <Electronically signed by Rosalba Elena DO> Date Rosalba Elena DO Cosigner Signature (If Indicated): Date CC: Tati Medina MD CTA CHEST W/WO Observed: 05/04/2018 Status: F Source: [place] CONTRAST 12:18 PM [facility] REPOSITORY [facility] Imaging Services [address] [place] [address] CTA Chest W/WO Contrast MR#: [id number] Acct: [id number] Name: DAVID BRICENO Sr. Rep #: [id number] : 1945 M 72 From: Og Fernandez MD PCP: Tati Medina MD Status: REG ER Study: CTA Chest W/WO Contrast Date of Exam: 05/04/18 Exam# [id number] Ordering Dr: Rosalba Elena DO STUDY: CTA CHEST REASON FOR EXAM: Male, 72 years old. Cough with green mucus. Chest pain, CABG, hypertension, cholecystectomy. RADIATION DOSAGE (If Supplied By Facility): CTDIvol = ( 18.03 ) mGy, DLP = ( 651.17 ) mGycm TECHNIQUE: The examination was performed with the intravenous administration of 100 ml of Isovue 370 contrast material. Post-processing of the angiographic images was performed, with multiplanar reformation and 3D reconstruction. Individualized dose optimization techniques were used for this CT. COMPARISON: Chest x-ray same date. FINDINGS: On today's chest x-ray there appear to be mild infiltrates of the left lower lung superimposed upon underlying emphysema. Supraclavicular: No mass or lymphadenopathy. Normal thyroid. Body wall soft tissues: No acute process. Osseous structures: Median sternotomy. Scoliosis, spondylosis, no acute process. Upper abdomen: Multiple simple appearing hepatic cysts, the largest in segment 4 measuring approximately 3.4 cm, incompletely characterized. No acute upper abdominal process is evident. Mediastinum: Normal esophagus. Multiple small or borderline enlarged lymph nodes are present in the mediastinum and carlos. Largest left hilar lymph node about 1.6 in meters short axis. Largest right hilar lymph node proximally 1.3 cm short axis. Subcarinal 1.2 cm. Paratracheal 1.2 cm. Chronicity uncertain. Heart: Borderline/mild cardiomegaly. No pericardial effusion. Prominent three-vessel coronary calcifications. Median sternotomy and CABG. Remnant epicardial pacer wires. Aorta: Borderline aneurysmal ectasia of the ascending aorta and proximal arch up to 3.95 cm. Mild arch atherosclerosis with widely patent three-vessel cervical arch branching. Lungs: Panlobular emphysema. Centrilobular and paraseptal features combined. There is fibrosis at the lung bases with peripheral honeycombing, associated with traction bronchiectasis. This largely calculus for the density seen on the chest x-ray in the left lung base where the degree of fibrosis is greater than on the right. However there is also a small superimposed subsegmental focus of consolidation in the left lower lobe, lateral basilar along the major fissure. This focus of consolidation measures approximately 3.6 x 2.5 cm and is most suspicious for acute pneumonia superimposed upon the extensive chronic interstitial changes. CT/CTA Chest W/WO Contrast IMPRESSION: Emphysema. 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 Subsegmental consolidation in the left lower lobe is suspicious for acute pneumonia. Electronically Signed: Og Fernandez, at 14:52 EDT Tel , Service support , CC: Tati Medina MD; Rosalba Elena DO Environmental Consultant: Signed CBC W/DIFF, AUTOMATED Collected: 05/04/2018 Status: F Source: [place] 11:48 AM [facility] REPOSITORY TYPE CODE TESTS RESULT OUT OF RANGE REFERENCE UNITS LAB L100.1000 4.4-11.0 K/mm3 High WBC 12.7 LAB L100.1200 4.6-6.2 M/mm3 Normal RBC 5.21 LAB L100.1300 13.0-16.5 g/dl Normal HGB 16.2 LAB L100.1400 40-54 % Normal HCT 48.0 LAB L100.1500 80-94 fL Normal MCV 92.1 LAB L100.1600 27.0-32.0 pg Normal MCH 31.1 LAB L100.1700 32-36 g/gl Normal MCHC 33.8 LAB L100.1810 11.6-14.6 % Normal RDW CV 13.4 LAB L100.1820 35.1-43.9 fl High RDW SD 45.0 LAB L100.1900 150-450 K/mm3 Normal PLT 267 LAB L100.2000 6.2-12.0 fl Normal MPV 9.6 LAB L100.2100 47-70 % Normal NEUT% 64.5 LAB L100.2200 19-41 % Normal LY% 22.9 LAB L100.2300 0-10 % Normal MONO% 8.3 LAB L100.2400 0-5 % Normal EO% 3.6 LAB L100.2500 0-1 % Normal BASO% 0.4 LAB L100.2550 0.0-0.9 % Normal IM GRAN % 0.300 Result Comment: IG% - Immature Granulocytes (promyelocytes, myelocytes and metamyelocytes) > 1% indicates that a LEFT SHIFT is Present. LAB L100.2620 2.0-7.7 X10 3/uL High Absolute Neut 8.2 LAB L100.2720 0.83-4.51 X10 3/ul Normal Absolute Lymph 2.90 Performed By: #### L100.0100 #### [facility] [address] [facility] [place], [address] BASIC METABOLIC Collected: 05/04/2018 Status: F Source: [place] PROFILE ([facility]) 11:48 AM [facility] REPOSITORY TYPE CODE TESTS RESULT OUT OF RANGE REFERENCE UNITS LAB L501.0100 74-106 mg/dL Normal GLU 95 Result Comment: Please note revised GLUCOSE reference range effective 2017. LAB L501.1000 7-18 mg/dL Normal BUN 11 LAB L501.1100 0.70-1.30 mg/dL Normal CREAT,SERUM 0.85 Result Comment: The validity of the calculated GFR AND GFRAA in patients over 70 years has not been determined. Clinical correlation is essential. LAB L501.1110 >60 mL/min Normal EST GFR 93 Result Comment: Non- GFR Calc LAB L501.1115 >60 mL/min Normal EST GFR - AA 113 Result Comment: GFR Calc LAB L501.1255 ml/min Normal Estimated CRCL 73.76 LAB L501.1300 10-20 RATIO Normal BUN/CRE 12.9 LAB L501.2200 8.5-10 mg/dL Normal .1 CA 9.1 LAB L501.5300 136-14 mmol/L Normal 5 NA 138 LAB L501.5600 3.5-5. mmol/L Normal 1 K 4.2 LAB L501.5900 98-107 mmol/L Normal CL 106 LAB L501.6100 21.0-3 mmol/L Normal 2.0 CO2 26.0 LAB L501.6200 5-15 Normal GAP 6 Performed By: #### L500.2500, L501.4010 #### [facility] [address] [place], [address] TROPONIN-I Collected: 05/04/2018 Status: F Source: [place] 11:48 AM [facility] REPOSITORY TYPE CODE TESTS RESULT OUT OF RANGE REFERENCE UNITS LAB L501.4010 <0.045 ng/mL Normal < 0.015 TROPONIN-I Result Comment: TROPONIN-I EXPECTED VALUES <0.045 Negative 0.045 - 0.590 Consistent with Cardiac Damage > OR = 0.600 Critical Value Not every elevated troponin is indicative of ND. These values should be used with clinical judgement in examining the patient's clinical picture for diagnosis. To establish a diagnosis of ND versus myocardial injury, there must be a demonstrated rise and/or fall in the troponin values, in addition to ischemic symptoms, EKG changes, new regional wall motion abnormality, and/or angiographical evidence. PLEASE NOTE: REFERENCE RANGES EDITED 18 Performed By: #### L500.2500, L501.4010 #### [facility] [place], [address] D-DIMER QUANTITATIVE Collected: 05/04/2018 Status: F Source: [place] (DVT/PE) 11:48 AM [facility] REPOSITORY TYPE CODE TESTS RESULT OUT OF RANGE REFERENCE UNITS LAB L300.8000 0.27-0.49 FEU/ug/m High alert D-DIMER 1.31 QUANT Result Comment: D-Dimer ELEVATED (>0.49): Additional studies and clinical assessments are indicated to conclude diagnosis of: Deep Vein Thrombosis (DVT) or Pulmonary Embolism (PE) CRITICAL VALUE VERIFIED. CALLED TO GENEVA NEWBY 05/04/18 Norma Munoz. RESULTS READ BACK BY SAME. Performed By: #### L300.8000 #### [facility] [address] [place], [address] CHEST PA AND LATERAL Observed: 05/04/2018 Status: F Source: [place] 11:30 AM [facility] Imaging Services [address] [place] [address] Chest PA and Lateral MR#: [id number] Acct: [id number] Name: DAVID BRICENO Sr. Rep #: [id number] : 1945 M 72 From: Og Fernandez MD PCP: Tati Medina MD Status: REG ER Study: Chest PA and Lateral Date of Exam: 05/04/18 Exam# [id number] Ordering Dr: Rosalba Elena DO STUDY: X-RAY CHEST REASON FOR EXAM: Male, 72 years old. Pain, cough TECHNIQUE: PA and lateral chest COMPARISON: None. FINDINGS: There are patchy airspace opacities throughout the left lower lung in a pattern most consistent with pneumonia without dense focal consolidation. There is minimal right lung base atelectasis. Mid to upper lungs clear. No effusion or pneumothorax. There is hyperlucency of the lungs and flattening of hemidiaphragms suggesting underlying COPD. Correlate smoking history. Normal cardiomediastinal silhouette, carlos and pleural margins. Median sternotomy. No acute osseous or upper abdominal process. RAD/Chest PA and Lateral IMPRESSION: No acute cardiopulmonary process. Electronically Signed: Og Fernandez, at 12:14 EDT Tel , Service support , CC: Tati Medina MD; Rosalba Elena DO Environmental Consultant: Signed PHONE MSG Observed: 03/12/2018 Status: F Source: [facility] 1:19 PM [facility] REPOSITORY Entered by RUDDY BALDWIN MD on March 12, 2018 13:19:05 EDT From: RUDDY BALDWIN MD To: [facility] Sent: 03/12/2018 13:19:05 EDT Subject: Medication Management Submitted: Complete:simvastatin (simvastatin 40 mg oral tablet) Signed by RUDDY BALDWIN MD 03/12/2018 13:19:00 Approved simvastatin (SIMVASTATIN TABS 40MG) TAKE 1 TABLET AT BEDTIME Qty: 90 TB Days Supply: 0 Refills: 3 Substitutions Allowed Route To Pharmacy - [facility] Patient matched by RUDDY BALDWIN MD on 03/12/2018 13:18:46 EDT From: [facility] To: RUDDY BALDWIN MD Sent: March 12, 2018 12:52:11 AM EDT Subject: Medication Management Due: March 13, 2018 12:52:11 AM EDT On Hold Pending Signature Drug: simvastatin (simvastatin 40 mg oral tablet) TAKE 1 TABLET AT BEDTIME Quantity: 90 TB Days Supply: 0 Refills: 3 Substitutions Allowed Notes from Pharmacy: Dispensed Drug: simvastatin (simvastatin 40 mg oral tablet) TAKE 1 TABLET AT BEDTIME Quantity: 90 TB Days Supply: 0 Refills: 3 Substitutions Allowed Notes from Pharmacy: AMB OFFICE-PROGRESS Observed: 02/27/2018 Status: F Source: [facility] NOTES-PROVIDER 11:13 AM [facility] REPOSITORY Patient: DAVID BRICENO Age: 72 years Sex: Male : 1945 Associated Diagnoses: None Author: RUDDY BALDWIN MD Visit Information Visit type: Scheduled follow-up. Accompanied by: Spouse. Source of history: Self. Referral source: Self. History limitation: None. Chief Complaint Follow-up appointment because of coronary artery disease status post bypass, hypertension, hyperlipidemia, chronic shortness of breath from COPD and GERD. Patient denies any cardiac symptoms but has be en having increasing pain in the both knees and also the muscles. He is concerned about whether simvastatin is causing the problem. I tried to explain to him that simvastatin can cause problems but he had been taking for a long time. Chart and medications reviewed. Review of Systems Constitutional: No fever, No chills, No sweats. Eye: Negative. Ear/Nose/Mouth/Throat: Negative. Respiratory: No shortness of breath, No cough. Cardiovascular: No chest pain, No syncope. Gastrointestinal: No nausea, No vomiting. Genitourinary: Negative. Gynecologic Hematology/Lymphatics: No bruising tendency, No bleeding tendency. Endocrine: Negative. Musculoskeletal: Negative. Integumentary: No rash, No abrasions. Psychiatric: No anxiety, No depression. Health Status Allergies: Allergies (5) Active Reaction Augmentin None Documented Coly Mycin M None Documented HYDROcodone None Documented naproxen None Documented predniSONE None Documented Current medications: Home Medications (9) Active amLODIPine 10 mg oral tablet See Instructions aspirin 81 mg oral tablet 81 mg = 1 tab(s), ORAL, DAILY HANNA D3 W/K2 Metoprolol Tartrate 25 mg oral tablet See Instructions Nitrostat 0.4 mg sublingual tablet See Instructions omeprazole 20 mg oral delayed release capsule 20 mg = 1 caps, ORAL, DAILY Probiotic Formula oral capsule . , ORAL, DAILY RAW ONE VITAMINS simvastatin 40 mg oral tablet See Instructions Problem list: Active Problems (8) Chest pain Coronary Atherosclerosis [place] Coronary Atherosclerosis Unspec Type Vessel [place] GERD (gastroesophageal reflux disease) Hyperlipidemia Hypertension Benign Hypertension Unspec SOB (shortness of breath) Histories Past Medical History: No qualifying data available Family History: Father Heart disease. Mother Heart disease. Procedure history: INSCSION L KNEE in 2016 at 71 Years. Cardiac Catheterization x3 on 10/28/2005 at 60 Years. Comments: 07/27/2014 14:Cece Ac 03/02/00; 03/02/99 Operative Result on 10/28/2005 at 60 Years. Social History Social & Psychosocial Habits Alcohol 09/14/2014 Use: Current Frequency: 1-2 times per week Other Comment: Daily Caffeine: Consumes on average 3 cups of regular coffee per day - 07/27/2014 14:Cece Hernandez Substance Abuse 09/14/2014 Risk Assessment: Denies Substance Abuse Tobacco 07/27/2014 Use: Former smoker Comment: QUIT IN 1999 - 07/27/2014 14:Cece Hernandez . Physical Examination Temperature 98.9 (10:51) Systolic Blood Pressure 122 (11:10) Diastolic Blood Pressure 70 (11:10) Pulse 66 (10:51) SpO2 No result Respiratory Rate No result VS/Measurements Documented vital signs, Vital Signs (last 24 hrs) Last Charted Heart Rate Apical 66 bpm (FEBRUARY 27:49) SBP 122 mmHg (FEBRUARY 27 11:10) DBP 70 mmHg (FEBRUARY 27 11:10) Weight 92 kg (FEBRUARY 27 10:49) Height 173 cm (FEBRUARY 27 10:49) BMI 30.74 (FEBRUARY 27 10:49) General: Alert and oriented, No acute distress. Skin: No cyanosis, Not jaundiced. Eye: Normal conjunctiva. HENT: Normocephalic. Neck: Supple, Non-tender, No carotid bruit, No jugular venous distention, No lymphadenopathy, No thyromegaly. Respiratory: Symmetrical chest wall expansion, No chest wall tenderness. Breath sounds: Bilateral, Anterior, Posterior, No wheezing, No crackles present. Cardiovascular: Normal rate, Regular rhythm, No murmur, No gallop, Good pulses equal in all extremities, Normal peripheral perfusion, No edema. Gastrointestinal: Soft, Non-tender, Normal bowel sounds, No organomegaly. Genitourinary: No costovertebral angle tenderness. Lymphatics: No lymphadenopathy neck, axilla, groin. Musculoskeletal: Normal range of motion, Normal strength, No tenderness, No deformity. Integumentary: Warm. Neurologic: Alert, Oriented, No focal deficits. Psychiatric: Cooperative, Normal judgment. Review / Management No qualifying data available Impression and Plan 1. Coronary artery disease post bypass asymptomatic. 2. Blood pressure is controlled. 3. Hyperlipidemia on simvastatin. 4. General eyes aches and pains with knee pains. 5. GERD. Plan. 1. Advised to discontinue simvastatin for 3 weeks and see if there is improvement in the muscle pain. 2. Continue all other medications. 3. Follow-up appointment in 4 months. Electronically signed by Dr. Casey Baldwin. PHONE MSG Observed: 12/08/2017 Status: F Source: [facility] 7:17 AM [facility] REPOSITORY Entered by RUDDY BALDWIN MD on December 08, 2017 07:17:33 EST From: RUDDY BALDWIN MD To: [id number] Sent: 12/08/2017 07:17:33 EST Subject: Medication Management Submitted: Complete:amLODIPine (amLODIPine 10 mg oral tablet) Signed by RUDDY BALDWIN MD 12/08/2017 07:17:00 Submitted: Complete:amLODIPine (amLODIPine 10 mg oral tablet) Signed by RUDDY BALDWIN MD 12/08/2017 07:17:00 Approved amLODIPine (AMLODIPINE BESYLATE 10 MG TAB) TAKE 1 TABLET BY MOUTH EVERY DAY Qty: 90 TB Days Supply: 90 Refills: 3 Substitutions Allowed Route To Pharmacy - [id number] Patient matched by RUDDY BALDWIN MD on 12/08/2017 07:17:01 EST [facility]: [id number] To: RUDDY BALDWIN MD Sent: December 06, 2017 1:39:27 AM EST Subject: Medication Management Due: December 07, 2017 1:39:27 AM EST On Hold Pending Signature Drug: amLODIPine (Norvasc 10 mg oral tablet) TAKE 1 TABLET BY MOUTH EVERY DAY Quantity: 90 TB Days Supply: 90 Refills: 3 Substitutions Allowed Notes from Pharmacy: Dispensed Drug: amLODIPine (amLODIPine 10 mg oral tablet) TAKE 1 TABLET BY MOUTH EVERY DAY Quantity: 90 TB Days Supply: 90 Refills: 3 Substitutions Allowed Notes from Pharmacy: ALLERGIES ALLERGIES DATE TYPE / NAME / CODE REACTION SEVERITY SOURCE CODE 09/24/2018 Drug Iodinated Angioedema Unknown [place] Allergy/41 Contrast- Oral [facility] [id number]([facility]) Dye/[id number](RX Repository NORM) 09/24/2018 Drug hydrocodone/F0060 Other Unknown [place] Allergy/41 43475(RXNORM) Community 5665582([facility]) Repository 09/24/2018 Drug prednisone/K69831 Other Unknown [place]anna Allergy/41 2164(RXNORM) Community 7878414([facility]) Repository 09/24/2018 Drug naproxen/[id number] Other Unknown [place] Allergy/41 80(RXNORM) [facility] 3701980([facility]) Repository 09/24/2018 Drug clavulanic Other Unknown [place] Allergy/41 acid/[id number](R Community 5649859(SN XNORM) Hospital OMED CT) Repository 09/24/2018 Drug amoxicillin/F0060 Other Unknown [place] Allergy/41 97941(RXNORM) Community 1278222( Hospital OMED CT) Repository 09/11/2018 DRUG IODINE SWELLING [facility] [place] 1362139(SN Repository OMED CT) 11/22/2013 DRUG PERINDOPRIL OTHER: SEE C [facility] INGREDI/ ERBUMINE [place] 2741710(SN Repository OMED CT) 11/22/2013 Food/83709 CITRUS FRUITS OTHER: SEE C [facility] 1000(SNOME [place] D CT) Repository 09/27/2013 DRUG COLCHICINE SWELLING [facility] [place] 6607106(SN Repository OMED CT) 09/27/2013 DRUG HYDROCODONE Mental Chg [facility] [place] 2551565(SN Repository OMED CT) 03/04/2013 DRUG/12962 AMOXICILLIN-POT INTOLERANCE [facility] 1003(SNOME CLAVULANATE [place] D CT) Repository 01/28/2013 DRUG NAPROXEN OTHER: SEE C [facility] [place] 9555997(SN Repository OMED CT) 03/21/2011 DRUG PREDNISONE OTHER: SEE C [place] [address] [address] [place] 7241930(SN Repository OMED CT) ENCOUNTERS ENCOUNTERS ADMIT/DISCHARGE ACCOUNT NUMBER ADMITTING ENCOUNTER LOCATION SOURCE CLASS 10/27/2018 [id number] Ambulatory [place] Janna [facility] ding:BFHLAB Repository 10/23/2018/10/23/19 [id number] [facility] [place] [address] ing:[facility] Repository 10/22/2018/10/28/19 [id number] Ambulatory [address] [place] Repository 10/22/2018/10/22/19 [id number] Ambulatory [address] [place] Repository 10/22/2018/10/22/19 [id number] Ambulatory [address] [place] Repository 10/22/2018/10/22/19 [id number] Ambulatory [address] [place] Repository 10/22/2018/10/23/19 [id number] Ambulatory [address] [place] Repository 09/24/2018 [id number] Ambulatory [facility]MS[facility]: [place] [facility] [place] 09/11/2018/10/02/20 [id number] KAYLIN, Inpatient [address] Repository 09/11/2018/09/11/20 [id number] Emergency [address] ding:ED Repository 09/07/2018 [id number] Ambulatory [facility]: [facility] Repository 08/24/2018/09/10/20 [id number] Ambulatory BMSBuilding: [address] Repository 08/24/2018/09/10/20 [id number] Agyepong, Inpatient [address] ding:[facility]oom Repository : KIM150Ivn: 1 08/24/2018 [id number] Agyepong, Ambulatory BMSBuilding: Janna Bowen BMS.[facility] Repository 08/24/2018 [id number] Agyepong, Ambulatory BMSBuilding: [place]anna Bowen [facility]MS..[facility] [place] 08/24/2018 [id number] Agyepong, Ambulatory BMSBuilding: Janna Bowen BMS.[facility] Repository 08/24/2018 [id number] Agyepong, Ambulatory BMSBuilding: Janna Bowen BMS.[facility] Repository 08/24/2018 [id number] Agyepong, Ambulatory BMSBuilding: Janna Bowen BMS.[facility] Repository 08/24/2018 [id number] Agyepong, Ambulatory BMSBuilding: [place] Bowen [facility]..[facility] [place] 08/24/2018 [id number] Agyepong, Ambulatory BMSBuilding: Janna Bowen BMS.[facility] [place] 08/24/2018 [id number] Agyepong, Ambulatory BMSBuilding: Janna Bowen BMS.[facility] Repository 08/24/2018 [id number] Agyepong, Ambulatory BMSBuilding: Janna Bowen BMS.[facility] Repository 08/24/2018 [id number] Agyepong, Ambulatory BMSBuilding: Janna Bowen BMS.[facility] 08/24/2018 [id number] Agyepong, Ambulatory BMSBuilding: [place] Andrés BMS.[facility] Repository 08/24/2018 [id number] Agyepong, Ambulatory BMSBuilding: Janna Andrés BMS.[facility] Repository 08/24/2018 [id number] Agyepong, Ambulatory BMSBuilding: Janna Andrés BMS.[facility] Repository 08/24/2018 [id number] Agyepong, Ambulatory BMSBuilding: [place] Andrés BMS.[facility] Repository 08/24/2018 [id number] Agyepong, Ambulatory BMSBuilding: [place] Andrés BMS.[facility] Repository 08/24/2018 [id number] Agyepong, Ambulatory BMSBuilding: Janna Andrés BMS.[facility] Repository 08/24/2018 [id number] Agyepong, Ambulatory BMSBuilding: [place] Andrés BMS.[facility] Repository 08/24/2018 [id number] Agyepong, Ambulatory BMSBuilding: [place] Andrés BMS.[facility] Repository 08/24/2018 [id number] Agyepong, Ambulatory BMSBuilding: Janna Andrés BMS.[facility] Repository 08/24/2018 [id number] Agyepong, Ambulatory BMSBuilding: Janna Andrés BMS.[facility] Repository 08/24/2018 [id number] Agyepong, Ambulatory BMSBuilding: Janna Andrés BMS.[facility] Repository 08/24/2018 [id number] Agyepong, Ambulatory BMSBuilding: [place] Andrés BMS.[facility] Repository 08/24/2018 [id number] Agyepong, Ambulatory BMSBuilding: [place] Andrés BMS.[facility] Repository 08/24/2018 [id number] Agyepong, Ambulatory BMSBuilding: Janna Andrés BMS.[facility] Repository 08/24/2018 [id number] Agyepong, Ambulatory BMSBuilding: [place] Andrés BMS.[facility] Repository 08/24/2018 [id number] Agyepong, Ambulatory BMSBuilding: [place] Andrés BMS.[facility] 08/24/2018 [id number] Agyepong, Ambulatory BMSBuilding: Janna Bowen BMS.[facility] Repository 08/24/2018 [id number] Agyepong, Ambulatory BMSBuilding: [place] Bowen BMS.[facility] 08/24/2018 [id number] Agyepong, Ambulatory BMSBuilding: Janna Bowen BMS.[facility] Repository 08/24/2018 [id number] Agyepong, Ambulatory BMSBuilding: J[place] Bowen BMS.[facility] 08/24/2018 [id number] Agyepong, Ambulatory BMSBuilding: Janna Bowen BMS.[facility] Repository 08/24/2018 [id number] Agyepong, Ambulatory BMSBuilding[facility] 08/24/2018 [id number] Agyepong, Ambulatory BMSBuilding: Janna Bowen BMS.[facility] Repository 08/24/2018 [id number] Agyepong, Ambulatory BMSBuilding: Janna Bowen BMS.[facility] Repository 08/24/2018 [id number] Agyepong, Ambulatory BMSBuilding: Janna Bowen BMS.[facility] Repository 08/24/2018 [id number] Agyepong, Ambulatory BMSBuilding: Janna Bowen BMS.[facility] Repository 08/24/2018/09/10/20 [id number] Ambulatory BMSBuilding: Janna Benjamin BMS.[facility] Repository 08/20/2018 [id number] Ambulatory [facility] ding:BFHLAB Repository 08/17/2018/08/17/20 [id number] Ambulatory [address] Repository 08/12/2018/08/12/20 [id number] Ambulatory [address] Repository 08/12/2018/08/13/20 [id number] Ambulatory [address] Repository 08/12/2018/08/13/20 [id number] Ambulatory [address] Repository 07/31/2018 [id number] Ambulatory [facility] Repository 07/27/2018/07/27/20 [id number] Ambulatory BMSBuilding: Janna 18 [facility] 07/03/2018/07/03/20 [id number] [facility] ing:[facility] General oom: [facility] Repository 06/17/2018 [id number] Ambulatory BMSBuilding: [facility] Repository 06/16/2018 [id number] Ambulatory [facility] ding:PSN Repository 06/04/2018 [id number] Ambulatory [facility] ding:PSN Repository 06/04/2018 [id number] Ambulatory BMSBuilding: [facility] Repository 05/18/2018 [id number] Ambulatory [facility] ding:PAVLAB Repository 05/18/2018/05/18/20 [id number] Ambulatory BMSBuilding: Janna 18 [facility] Rep[facility] 05/04/2018/05/04/20 [id number] Emergency [address] ding:ED Repository 02/27/2018/02/28/20 [id number] [facility] ing:[facility] General oom: [address] Repository 03/26/2017/09/17/20 [id number] [facility]ulatory [facility] ing:[facility] Repository PAYERS PAYERS ENCOUNTER GUARANTOR PAYER SUBSCRIBER SOURCE 10/27/2018 DAVID BRICENO Primary [facility]ID [facility] [facility] Insurance:AETNA Sr.: [facility] Number: [id number] Hospital [address]Lvt: 330 [id number] Repository [phone] () Date:1378-20-17EZ [address] [address]FQ: 10/27/2018 Secondary NOT GIVENUNK Janna Insurance:SELF PAY [facility] Number: Effective Repository Date:2018-10-27 10/23/2018 DAVID Wright Primary DAVID Wright [facility] BEARDDOB: Insurance:AETNAPolicy BEARDDOB: General Health [id number] Number: [id number] [facility], [id number] 5 [facility] [address]Fpv: Date:2008-10-06 - CHALINO RAMESH [id number] Name:Mila Hein~No Email () AddressTel: () () 09/24/2018 L BRICENO Primary L BRICENO [place] Sr.[address] Insurance:AETNA Sr.: [facility] Number: [id number] Hospital [address]Cnz: (362) [id number] Repository [phone] () Date:7508-61-24LE [address] [place] [address]QU: 09/24/2018 Secondary NOT GIVENUNK Janna Insurance:SELF PAY [facility] Number: Effective Repository Date:2018-09-16 09/11/2018 L BRICENO Primary L BRICENO [place] Sr.[address] Insurance:AETNA Sr.: [facility] Number: [id number] Hospital [address]Jmw: [phone] [id number] Repository [phone] () Date:3563-32-74CQ [address] [place] [address]KZ: 09/11/2018 Secondary NOT GIVENUNK Janna Insurance:SELF PAY [facility] Number: Effective Repository Date:2018-09-11 09/07/2018 L BRICENO Primary L BRICENO [place] Sr.[address] Insurance:AETNA Sr.: [facility] Number: [id number] Hospital [address]Skm: (331) [id number] Repository [phone] () Date:1561-97-16FB [address] [place] [address]PP: 09/07/2018 Secondary NOT GIVENUNK [place] Insurance:SELF PAY [facility] Hospital Number: Effective Repository Date:2018-09-07 08/24/2018 DAVID PALAFOXD Primary DAVID PALAFOXD [place] Sr.[address] Insurance:AETNA Sr.: [facility] Number: [id number] Hospital [address]Hxo: (330) [id number] Repository [phone] (HP) Date:8538-93-37ZE [address] [place] [address]XD: 08/24/2018 Secondary NOT GIVENUNK Janna Insurance:SELF PAY [facility] Hospital Number: Effective Repository Date:2018-08-24 08/24/2018 DAVID PALAFOXD Primary DAVID PALAFOXD [place] Sr.[address] Insurance:AETNA Sr.: [facility] Number: [id number] Hospital 004[address]Itt: (330) [id number] Repository [phone] (HP) Date:0568-50-41HA [address] [place] [address]YI: 08/24/2018 Secondary NOT GIVENUNK [place] Insurance:SELF PAY [facility] Number: Effective Repository Date:2018-08-24 08/24/2018 DAVID BRICENO Primary DAVID PALAFOXD J[place] Sr[address] Insurance:AETNA Sr.: [facility] Number: [id number] Hospital [address]Lsq: (330) [id number] Repository [phone] (HP) Date:5257-21-20TI [address] [place] [address]KJ: 08/24/2018 Secondary NOT GIVENUNK Janna Insurance:SELF PAY [facility] Number: Effective Repository Date:2018-08-24 08/24/2018 DAVID PALAFOXD Primary DAVID PALAFOXD [place] Sr[address] Insurance:AETNA [facility] Number: [id number] Hospital [address]Gha: (330) [id number] Repository [phone] (HP) Date:0001-59-14II [address], [place] [address]QI: 08/24/2018 Secondary NOT GIVENUNK Janna Insurance:SELF PAY [facility] Hospital Number: Effective Repository Date:2018-08-24 08/24/2018 L BRICENO Primary L BRICENO [place] Sr.[address] Insurance:AETNA Sr.: [facility] DOMITILA [facility] Number: [id number] Hospital [address]Uuq: (330) [id number] Repository [phone] (HP) Date:7260-79-82PA [address], [place] [address]BA: 08/24/2018 Secondary NOT GIVENUNK Janna Insurance:SELF PAY [facility] Hospital Number: Effective Repository Date:2018-08-24 08/24/2018 L BRICENO Primary L BRICENO [place] Sr.[address] Insurance:AETNA Sr.: [facility] DOMITILA [facility] Number: [id number] Hospital 67[address]Arp: (330) [id number] Repository [phone] (HP) Date:7303-41-66SF [address], [place] [address]RQ: 08/24/2018 Secondary NOT GIVENUNK [place] Insurance:SELF PAY [facility] Hospital Number: Effective Repository Date:2018-08-24 08/24/2018 L BRICENO Primary L BRICENO [place] Sr.[address] Insurance:AETNA Sr.: [facility] DOM[facility]ILA [facility] Number: [id number] Hospital 213[address]Hsq: (330) [id number] Repository [phone] (HP) Date:1158-68-41SD [address] [place] [address]JY: 08/24/2018 Secondary NOT GIVENUNK Janna Insurance:SELF PAY [facility] Number: Effective Repository Date:2018-08-24 08/24/2018 DAVID BRICENO Primary DAVID PALAFOXD [place] Sr[address] Insurance:AETNA [facility].: [facility] Number: [id number] Hospital 98[address]Rvv: (330) [id number] Repository [phone] (HP) Date:5661-55-20AC [address], [place] [address]FG: 08/24/2018 Secondary NOT GIVENUNK [place] Insurance:SELF PAY [facility] Hospital Number: Effective Repository Date:2018-08-24 08/24/2018 DAVID BRICENO Primary DAVID PALAFOXD [place] Sr[address] Insurance:AETNA Sr.: [facility] Number: [id number] Hospital 269[address]Avn: (330) [id number] Repository [phone] (HP) Date:7340-68-02UM [address], [place] [address]VK: 08/24/2018 Secondary NOT GIVENUNK Janna Insurance:SELF PAY [facility] Number: Effective Repository Date:2018-08-24 08/24/2018 DAVID BRICENO Primary DAVID APLAFOXD [place] Sr.[address] Insurance:AETNA [facility].: [facility] Number: [id number] Hospital 43[address]Mbq: (330) [id number] Repository [phone] (HP) Date:1926-01-56VC [address], [place] [address]UA: 08/24/2018 Secondary NOT GIVENUNK [place] Insurance:SELF PAY [facility] Number: Effective Repository Date:2018-08-24 08/24/2018 DAVID BRICENO Primary DAVID PALAFOXD J[place] Sr.[address] Insurance:AETNA [facility].: [facility] Number: [id number] Hospital 88335Lmi: (330) [id number] Repository [phone] (HP) Date:9920-62-96VY [address] [place] [address]EF: 08/24/2018 Secondary NOT GIVENUNK Janna Insurance:SELF PAY [facility] Number: Effective Repository Date:2018-08-24 08/24/2018 L BRICENO Primary L BRICENO [place] Sr.[address] Insurance:AETNA Sr.: [facility] Number: [id number] Hospital 887[address]Pqf: (330) [id number] Repository [phone] (HP) Date:5120-36-18XB [address] [place] [address]ZU: 08/24/2018 Secondary NOT GIVENUNK Janna Insurance:SELF PAY [facility] Hospital Number: Effective Repository Date:2018-08-24 08/24/2018 L BRICENO Primary L BRICENO [place] Sr[address] Insurance:AETNA Sr.: [facility] DOMITILA [facility] Number: [id number] Hospital 522[address]Dzi: (330) [id number] Repository [phone] (HP) Date:3186-24-82CD [address] [place] [address]JM: 08/24/2018 Secondary NOT GIVENUNK [place] Insurance:SELF PAY [facility] Hospital Number: Effective Repository Date:2018-08-24 08/24/2018 L BRICENO Primary L BRICENO [place] Sr[address] Insurance:AETNA Sr.: [facility] DOMITILA [facility] Number: [id number] Hospital 38655Oxl: (330) [id number] Repository [phone] (HP) Date:3462-69-91PA [address] [place] [address]YL: 08/24/2018 Secondary NOT GIVENUNK Janna Insurance:SELF PAY [facility] Number: Effective Repository Date:2018-08-24 08/24/2018 DAVID BRICENO Primary DAVID BRICENO [place] Sr.[address] Insurance:AETNA Sr.: [facility] AGUSTINALINA [facility] HospitalPolicy Number: [id number] Hospital 818[address]Fyf: (330) [id number] Repository [phone] (HP) Date:8058-14-51KT [address] [place] [address]IK: 08/24/2018 Secondary NOT GIVENUNK Janna Insurance:SELF PAY [facility] Hospital Number: Effective Repository Date:2018-08-24 08/24/2018 DAVID BRICENO Primary DAVID BRICENO [place] Sr.[address] Insurance:AETNA Sr.: [facility] Number: [id number] Hospital 24867Rbg: (330) [id number] Repository [phone] (HP) Date:3756-50-07QQ [address] [place] [address]PL: 08/24/2018 Secondary NOT GIVENUNK [place] Insurance:SELF PAY [facility] Number: Effective Repository Date:2018-08-24 08/24/2018 DAVID BRICENO Primary DAVID BRICENO [place] Sr.[address] Insurance:AETNA Sr.: [facility] Number: [id number] Hospital 48744Lpi: (330) [id number] Repository [phone] (HP) Date:0582-58-48QH [address] [address]FM: 08/24/2018 Secondary NOT GIVENUNK Janna Insurance:SELF PAY [facility] Hospital Number: Effective Repository Date:2018-08-24 08/24/2018 DAVID BRICENO Primary DAVID PALAFOXD [place] Sr.[address] Insurance:AETNA [facility].: [facility] Number: [id number] Hospital 948[address]Fpc: (330) [id number] Repository [phone] (HP) Date:6192-70-45GU [address] [place] [address]TT: 08/24/2018 Secondary NOT GIVENUNK Janna Insurance:SELF PAY [facility] Number: Effective Repository Date:2018-08-24 08/24/2018 L BRICENO Primary L BRICENO [place] Sr.[address] Insurance:AETNA Sr.: [facility] AGUSTINALINA [facility] Number: [id number] Hospital [id number]: (330) [id number] Repository [phone] (HP) Date:1869-97-13ZQ [address], [place] [address]VS: 08/24/2018 Secondary NOT GIVENUNK Janna Insurance:SELF PAY [facility] Hospital Number: Effective Repository Date:2018-08-24 08/24/2018 L BRICENO Primary L BRICENO [place] Sr[address] Insurance:AETNA Sr.: [facility] DOMITILA [facility] Number: [id number] Hospital 39[address]Thw: (330) [id number] Repository [phone] (HP) Date:6539-50-29GK [address] [place] [address]JP: 08/24/2018 Secondary NOT GIVENUNK [place] Insurance:SELF PAY [facility] Hospital Number: Effective Repository Date:2018-08-24 08/24/2018 L BRICENO Primary L BRICENO [place] [address] Insurance:AETNA Sr.: [facility]ITILA [facility]: [id number] Hospital 33482Ulq: (330) [id number] Repository [phone] (HP) Date:8627-12-95KO [address] [place] [address]KR: 08/24/2018 Secondary NOT GIVENUNK [place] Insurance:SELF PAY [facility] Number: Effective Repository Date:2018-08-24 08/24/2018 DAVID BRICENO Primary DAVID BRICENO [place] [address] Insurance:AETNA Sr.: [facility] Number: [id number] Hospital 31066Qpo: (330) [id number] Repository [phone] () Date:5582-29-90AL [address] [place] [address]WY: 08/24/2018 Secondary NOT GIVENUNK [place] Insurance:SELF PAY [facility] Hospital Number: Effective Repository Date:2018-08-24 08/24/2018 DAVID BRICENO Primary DAVID BRICENO [place] [address] Insurance:AETNA Sr.: [facility] Number: [id number] Hospital 29601Nyh: (330) [id number] Repository [phone] (HP) Date:8711-78-33ST [address] [address]LG: 08/24/2018 Secondary NOT GIVENUNK [place] Insurance:SELF PAY [facility] Number: Effective Repository Date:2018-08-24 08/24/2018 DAVID BRICENO Primary DAVID BRIECNO [place] [address] Insurance:AETNA Sr.: [facility] Number: [id number] Hospital 49753Reb: (330) [id number] Repository [phone] (HP) Date:3682-92-15XR [address] [place] [address]GK: 08/24/2018 Secondary NOT GIVENUNK [place] Insurance:SELF PAY [facility] Number: Effective Repository Date:2018-08-24 08/24/2018 DAVID BRICENO Primary DAVID BRICENO [place] [address] Insurance:AETNA Sr.: [facility] Number: [id number] Hospital 14433Apz: (330) [id number] Repository [phone] (HP) Date:9120-70-23KT [address] [place] [address]QP: 08/24/2018 Secondary NOT GIVENUNK [place] Insurance:SELF PAY [facility] Number: Effective Repository Date:2018-08-24 08/24/2018 L BRICENO Primary L BRICENO [place] [address] Insurance:AETNA Sr.: [facility] AGUSTINALINA [facility] Number: [id number] Hospital 47442Sej: (330) [id number] Repository [phone] (HP) Date:3376-93-17XS [address] [place] [address]RP: 08/24/2018 Secondary NOT GIVENUNK [place] Insurance:SELF PAY [facility] Hospital Number: Effective Repository Date:2018-08-24 08/24/2018 L BRICENO Primary L BRICENO [place] [address] Insurance:AETNA Sr.: [facility] AGUSTINALINA [facility] Number: [id number] Hospital 30378Thm: (330) [id number] Repository [phone] (HP) Date:8087-06-51XW [address] [place] [address]JT: 08/24/2018 Secondary NOT GIVENUNK [place] Insurance:SELF PAY [facility] Number: Effective Repository Date:2018-08-24 08/24/2018 L BRICENO Primary L BRICENO [place] [address] Insurance:AETNA Sr.: [facility] AGUSTINALINA [facility] Number: [id number] Hospital 37881Mdg: (330) [id number] Repository [phone] (HP) Date:6134-20-54PT [address] [place] [address]KE: 08/24/2018 Secondary NOT GIVENUNK [place] Insurance:SELF PAY [facility] Number: Effective Repository Date:2018-08-24 08/24/2018 DAVID PALAFOXD Primary DAVID PALAFOXD [place] [address] Insurance:AETNA Sr.: [facility] Number: [id number] Hospital 47072Bgs: (330) [id number] Repository [phone] (HP) Date:5152-45-09HU [address], [place] [address]IL: 08/24/2018 Secondary NOT GIVENUNK [place] Insurance:SELF PAY [facility] Number: Effective Repository Date:2018-08-24 08/24/2018 DAVID PALAFOXD Primary DAVID PALAFOXD [place] [address] Insurance:AETNA Sr.: [facility] Number: [id number] Hospital 50139Xtl: (330) [id number] Repository [phone] (HP) Date:0009-18-45ND [address], [place] [address]JZ: 08/24/2018 Secondary NOT GIVENUNK [place] Insurance:SELF PAY [facility] Number: Effective Repository Date:2018-08-24 08/24/2018 DAVID BRICENO Primary DAVID PALAFOXD [place] [address] Insurance:AETNA Sr.: [facility] Number: [id number] Hospital 37570Rrq: (330) [id number] Repository [phone] (HP) Date:5058-46-12HJ [address], [place] [address]IL: 08/24/2018 Secondary NOT GIVENUNK [place] Insurance:SELF PAY [facility] Number: Effective Repository Date:2018-08-24 08/24/2018 DAVID PALAFOXD Primary DAVID PALAFOXD [place] [address] Insurance:AETNA Sr.: [facility] Number: [id number] Hospital 02823Khf: (330) [id number] Repository [phone] (HP) Date:1449-91-69ZY [address] [address]OX: 08/24/2018 Secondary NOT GIVENUNK [place] Insurance:SELF PAY [facility]: Effective Repository Date:2018-08-24 08/24/2018 L BRICENO Primary L BRICENO [place] [address] Insurance:AETNA Sr.: [facility] [place], [facility] Number: [id number] Hospital 60890Eqq: (330) [id number] Repository [phone] (HP) Date:7414-29-02RH [address] [place] [address]XO: 08/24/2018 Secondary NOT GIVENUNK [place] Insurance:SELF PAY [facility] Hospital Number: Effective Repository Date:2018-08-24 08/24/2018 L BRICENO Primary L BRICENO [place] [address] Insurance:AETNA Sr.: [facility] RDLOLINA [facility] Number: [id number] Hospital 08060Gmj: (330) [id number] Repository [phone] () Date:8022-98-87SH [address] [place] [address]BP: 08/24/2018 Secondary NOT GIVENUNK [place] Insurance:SELF PAY [facility] Hospital Number: Effective Repository Date:2018-08-24 08/24/2018 L BRICENO Primary L BRICENO [place] [address] Insurance:AETNA Sr.: [facility] [place] [facility] Number: [id number] Hospital 01319Qon: (330) [id number] Repository [phone] (HP) Date:8967-36-12CI [address] [place] [address]PU: 08/24/2018 Secondary NOT GIVENUNK [place] Insurance:SELF PAY [facility] Hospital Number: Effective Repository Date:2018-08-24 08/24/2018 DAVID PALAFOXD Primary L BRICENO [place] [address] Insurance:AETNA Sr.: [facility] Number: [id number] Hospital 34858Jgf: (330) [id number] Repository [phone] () Date:1012-04-70GC [address], [place] [address]GM: 08/24/2018 Secondary NOT GIVENUNK [place] Insurance:SELF PAY [facility] Number: Effective Repository Date:2018-08-24 08/24/2018 DAVID PALAFOXD Primary L BRICENO [place] [address] Insurance:AETNA Sr.: [facility] Number: [id number] Hospital 03983Qwq: (330) [id number] Repository [phone] () Date:7288-75-41VJ [address], [place] [address]CS: 08/24/2018 Secondary NOT GIVENUNK [place] Insurance:SELF PAY [facility] Number: Effective Repository Date:2018-08-24 08/24/2018 DAVID PALAFOXD Primary DAVID Wright BRICENO [place] [address] Insurance:AETNA Sr.: [facility] Number: [id number] Hospital 60465Fmm: (330) [id number] Repository [phone] (HP) Date:8981-22-45XU [address], [place] [address]WD: 08/24/2018 Secondary NOT GIVENUNK [place] Insurance:SELF PAY [facility] Hospital Number: Effective Repository Date:2018-08-24 08/24/2018 DAVID PALAFOXD Primary DAVID Wright BRICENO [place] [address] Insurance:AETNA Sr.: [facility] Number: [id number] Hospital 17565Wqo: (330) [id number] Repository [phone] () Date:1593-92-21QC [address], [place] [address]FW: 08/24/2018 Secondary NOT GIVENUNK [place] Insurance:SELF PAY [facility] Number: Effective Repository Date:2018-08-24 08/20/2018 L BRICENO Primary L BRICENO [place] [address] [facility] Insurance:AETNA Sr.: [facility] Number: [id number] Hospital 73623Pds: (214) [id number] Repository [phone] () Date:4720-18-49JS [address] [place] [address]ML: 08/20/2018 Secondary NOT GIVENUNK [place] Insurance:SELF PAY [facility] Number: Effective Repository Date:2018-08-20 07/27/2018 L BRICENO Primary L BRICENO [place] [address] [facility] Insurance:AETNA Sr.: [facility] Number: [id number] Hospital 89752Vwf: (730) [id number] Repository [phone] () Date:6901-22-89PU [address] [place] [address]BE: 07/27/2018 Secondary NOT GIVENUNK [place] Insurance:SELF PAY [facility] Number: Effective Repository Date:2018-07-20 07/03/2018 L Primary L [facility] BEARDDOB: Insurance:AETNAPolicy BEARDDOB: General Health [id number] Number: [id number] [facility], [id number] 5 [facility] [address]Ssb: Date:2010-10[birth year]06 - [place], [place] 3963-86-16Xrde Name:Mila [phone]~No Email () AddressTel: () () 06/17/2018 DAVID BRICENO Primary DAVID BRICENO [place] [address] Insurance:AETNA Sr.: [facility] Number: [id number] Hospital 63131Ues: (330) [id number] Repository [phone] (HP) Date:2621-97-49LI [address], [place] [address]WO: 06/17/2018 Secondary NOT GIVENUNK [place] Insurance:SELF PAY [facility] Number: Effective Repository Date:2018-06-17 06/16/2018 DAVID PALAFOXD Primary DAVID PALAFOXD [place] [address] Insurance:AETNA Sr.: [facility] Number: [id number] Hospital 91319Pjx: (330) [id number] Repository [phone] () Date:6156-33-44WE [address] [place] [address]ID: 06/16/2018 Secondary NOT GIVENUNK [place] Insurance:SELF PAY [facility] Number: Effective Repository Date:2018-05-18 06/04/2018 DAVID PALAFOXD Primary DAVID PALAFOXD [place] [address] Insurance:AETNA Sr.: [facility] Number: [id number] Hospital 90421Vmc: (330) [id number] Repository [phone] (HP) Date:8026-90-65MX [address] [place] [address]NQ: 06/04/2018 Secondary NOT GIVENUNK [place] Insurance:SELF PAY [facility] Number: Effective Repository Date:2018-05-18 06/04/2018 DAVID PALAFOXD Primary DAVID PALAFOXD [place] [address] Insurance:AETNA Sr.: [facility] Number: [id number] Hospital [id number]: (330) [id number] Repository [phone] (HP) Date:2770-15-63FX [address], [place] [address]AD: 06/04/2018 Secondary NOT GIVENUNK [place] Insurance:SELF PAY [facility] Number: Effective Repository Date:2018-06-04 05/18/2018 DAVID PALAFOXD Primary DAVID Wright BRICENO [place] [address] Insurance:AETNA Sr.: [facility] [place], [facility] Number: [id number] Hospital 23716Cyi: (330) [id number] Repository [phone] (HP) Date:1441-91-80HM [address], [place] [address]IM: 05/18/2018 Secondary NOT GIVENUNK [place] Insurance:SELF PAY [facility] Number: Effective Repository Date:2018-05-18 05/18/2018 DAVID PALAFOXD Primary DAVID Wright BRICENO [place] [address] Insurance:AETNA Sr.: [facility] [place], [facility] Number: [id number] Hospital 28413Col: (330) [id number] Repository [phone] (HP) Date:4189-84-90DG [address], [place] [address]OY: 05/18/2018 Secondary NOT GIVENUNK [place] Insurance:SELF PAY [facility] Number: Effective Repository Date:2018-05-08 05/04/2018 DAVID PALAFOXD Primary DAVID Wright BRICENO [place] [address] Insurance:AETNA Sr.: [facility] [place] [facility]: [id number] Hospital 89[address]Mwh: (330) [id number] Repository [phone] (HP) Date:8138-64-77MM [address], [place] [address]DT: 05/04/2018 Secondary NOT GIVENUNK [place] Insurance:SELF PAY [facility] Hospital Number: Effective Repository Date:2018-05-04
== END ==
PROVIDERS: Family Provider Family Medicine; PCP Family Medicine; Visit Provider Family Medicine
DX: J84.9 Interstitial pulmonary disease, unspecified (principal); I82.409 Acute embolism and thrombosis of unspecified deep veins of unspecified lower extremity
CPT/HCPCS: 36415; 80048; 80076; 83735

== ENCOUNTER → 2019-01-05 11:43 | Outpatient (CLI) | payer MEDICARE, SELFPAY ==
[2018-09-11 09:22] VITALS: BMI 27.8
[2019-01-05 14:38] LABS: Absolute Lymphocyte Count 1.52 X10^3/ul (0.83-4.51); Absolute Neutrophil Count 11.9 X10^3/uL (2.0-7.7); Basophil# 0.09 X10^3/uL; Basophil% 0.6 % (0-1); Eosinophil# 0.28 X10^3/uL; Eosinophils% 1.8 % (0-5); Hematocrit 41.4 % (40-54); Hemoglobin 13.3 g/dl (13.0-16.5); Lymphocyte # 1.52 X10^3/ul (4.0); Lymphocyte % 9.9 % (19-41); Mean Corp Hgb Conc 32.1 g/gl (32-36); Mean Corpuscular Hgb 28.9 pg (27.0-32.0); Mean Corpuscular Volume 89.8 fL (80-94); Mean Platelet Vol. 9.7 fl (6.2-12.0); Monocyte# 1.23 X10^3/uL; Neutrophil # 11.94 X10^3/uL (2.7-7.7); Neutrophil % 77.5 % (47-70); Platelet Count 373 K/mm3 (150-450); RBC Distribution Width CV 14.3 % (11.6-14.6); RBC Distribution Width SD 46.3 fl (35.1-43.9); Red Blood Count 4.61 M/mm3 (4.6-6.2); White Blood Count 15.4 K/mm3 (4.4-11.0)
[2019-01-05 14:39] LABS: POSITIVE COUNT NO; POSITIVE DIFFERENTIAL NO; POSITIVE MORPHOLOGY NO
[2019-01-05 14:47] LABS: ALB/GLOB Ratio 0.8 RATIO (0.9-2.4); AST(SGOT) 22 U/L (15-37); Alanine Aminotransfer ALT/SGPT 25 U/L (16-61); Albumin, Serum 3.3 g/dL (3.2-5.0); Alkaline Phosphatase 68 U/L (45-117); Anion Gap 4 (5-15); BUN 7 mg/dL (7-18); BUN/Creat Ratio 8.8 RATIO (10-20); Calcium,Total 8.8 mg/dL (8.5-10.1); Chloride 102 mmol/L (98-107); EST Glomerular Filtration Rate 100 mL/min (>60); Est Glom Filt Rate - Afr Amer 121 mL/min (>60); Glucose 79 mg/dL (74-106); Potassium 3.9 mmol/L (3.5-5.1); Protein, Total 7.3 g/dL (6.4-8.2); Sodium Level 136 mmol/L (136-145)
[2019-01-05 14:52] LABS: Vitamin D,25 Hydroxy 29.2 ng/mL (29.95-100.01)
[2019-01-06 13:49] LABS: Pathologist Review Reviewed
== END ==
PROVIDERS: Family Provider Family Medicine; PCP Family Medicine; Visit Provider Family Medicine
DX: J84.9 Interstitial pulmonary disease, unspecified (principal); I25.10 Atherosclerotic heart disease of native coronary artery without angina pectoris; D47.2 Monoclonal gammopathy; E55.9 Vitamin D deficiency, unspecified
CPT/HCPCS: 36415; 80053; 82306; 83735; 85025

== ENCOUNTER → 2019-06-02 11:25 | Outpatient (CLI) | payer MEDICARE, SELFPAY ==
[2018-09-11 09:22] VITALS: BMI 27.8
--- NOTE | 2019-06-02 11:32 | RAD_ITS ---
STUDY: X-RAY - CERVICAL SPINE REASON FOR EXAM: Male, 73 years old. Neck pain and stiffness. TECHNIQUE: 5 view(s) of the cervical spine were obtained. COMPARISON: None. FINDINGS: Odontoid and lateral masses intact and aligned. Minimal degenerative features of the lateral mass articulations. Prominent calcification in the region of the carotid bulbs and bifurcations bilaterally. Cervical/prevertebral soft tissues otherwise unremarkable. Airways normal. Vertebral body height and alignment normal with preserved cervical lordosis. Generalized osteopenia. There is moderately severe disc narrowing at C5-C6, C6-C7 with uncovertebral joint hypertrophy and facet hypertrophy contributing to bony foraminal narrowing at these levels. The facet joints appear aligned and intact with mild to moderate multilevel facet arthropathy/hypertrophy. Apical lungs clear, apical thoracic cage intact. Median sternotomy. RAD/Cerv Spine 4 or 5 Views IMPRESSION: Cervical spondylosis, degenerative disc disease most notable between C5 and C7, with evidence of foraminal narrowing. No acute cervical spine fracture or traumatic subluxation. Prominent carotid calcifications. A routine follow-up carotid ultrasound duplex examination is suggested. Electronically Signed: Og Fernandez MD at 12:30 EDT Tel , Service support ,
--- NOTE | 2019-06-02 11:32 | RAD_ITS ---
STUDY: X-RAY CHEST REASON FOR EXAM: Male, 73 years old. Pulmonary fibrosis TECHNIQUE: PA and lateral chest COMPARISON: 09/11/2018 x-ray chest, CT chest 05/04/2018 FINDINGS: The pattern of increased interstitial markings in the mid to lower lungs bilaterally, left slightly greater than right, is stable compared to prior imaging. There is no evidence at this time of superimposed pneumonia. There is no effusion or pneumothorax. There are fibrotic features of the mid to lower lungs, greater on the left. There is hyperlucency at the apices with flattening of hemidiaphragms consistent with the presence of underlying COPD/emphysema. Concordant with prior CT chest imaging. Normal cardiomediastinal silhouette. Median sternotomy. No acute osseous or upper abdominal process is evident. RAD/Chest PA and Lateral IMPRESSION: Stable fibrotic features of the lungs without evidence of acute superimposed cardiopulmonary process. Electronically Signed: Og Fernandez MD at 12:23 EDT Tel , Service support ,
== END ==
PROVIDERS: Family Provider Family Medicine; PCP Family Medicine; Referring Provider Family Medicine; Visit Provider Family Medicine
DX: R07.81 Pleurodynia (principal); J84.10 Pulmonary fibrosis, unspecified; M43.6 Torticollis
CPT/HCPCS: 71046; 72050

== ENCOUNTER → 2020-12-07 11:31 | Outpatient (CLI) | payer MEDICARE, SELFPAY ==
[2018-09-11 09:22] VITALS: BMI 27.8
[2020-12-07 15:06] LABS: Absolute Lymphocyte Count 2.01 X10^3/uL (0.83-4.51); Absolute Neutrophil Count 8.8 X10^3/uL (2.0-7.7); Basophil% 0.8 % (0-1); Eosinophil# 0.51 X10^3/uL; Eosinophils% 4.1 % (0-5); Hematocrit 44.8 % (40-54); Hemoglobin 13.9 g/dL (13.0-16.5); Lymphocyte # 2.01 X10^3/ul (4.0); Lymphocyte % 16.2 % (19-41); Mean Corpuscular Hgb 26.8 pg (27.0-32.0); Mean Corpuscular Volume 86.5 fL (80-94); Mean Platelet Vol. 10.2 fl (6.2-12.0); Monocyte# 0.82 X10^3/uL; Monocyte% 6.6 % (0-10); NRBC Flagged by Analyzer 0 % (0-5); Neutrophil # 8.84 X10^3/uL (2.7-7.7); Neutrophil % 71.4 % (47-70); Platelet Count 316 K/mm3 (150-450); RBC Distribution Width CV 15.8 % (11.6-14.6); RBC Distribution Width SD 49.7 fl (35.1-43.9); Red Blood Count 5.18 M/mm3 (4.6-6.2); White Blood Count 12.4 K/mm3 (4.4-11.0)
[2020-12-07 15:43] LABS: Vitamin B12 502 pg/mL (211-911)
[2020-12-07 16:24] LABS: ALB/GLOB Ratio 0.6 RATIO (0.9-2.4); AST(SGOT) 26 U/L (15-37); Alanine Aminotransfer ALT/SGPT 26 U/L (16-61); Alkaline Phosphatase 92 U/L (45-117); Anion Gap 8 (5-15); BUN 9 mg/dL (7-18); Calcium,Total 8.6 mg/dL (8.5-10.1); Chloride 101 mmol/L (98-107); Creatinine, Serum 0.75 mg/dL (0.70-1.30); EST Glomerular Filtration Rate 107 mL/min (>60); Est Glom Filt Rate - Afr Amer 130 mL/min (>60); Ferritin 25 ng/mL (26-388); Globulin 5.1 g/dL (2.2-4.2); Glucose 76 mg/dL (74-106); Iron 43 ug/dL (65-175); Iron Binding Capacity,Total 333 ug/dL (250-450); Potassium 4.1 mmol/L (3.5-5.1); Protein, Total 8.1 g/dL (6.4-8.2); Sodium Level 135 mmol/L (136-145)
== END ==
PROVIDERS: PCP Family Medicine; Visit Provider Family Medicine
DX: D50.9 Iron deficiency anemia, unspecified (principal); I25.10 Atherosclerotic heart disease of native coronary artery without angina pectoris; M06.9 Rheumatoid arthritis, unspecified
CPT/HCPCS: 36415; 80053; 82607; 82728; 82746; 83540; 83550; 85025

== ENCOUNTER → 2021-01-26 11:38 | Outpatient (CLI) | payer MEDICARE, SELFPAY ==
[2018-09-11 09:22] VITALS: BMI 27.8
[2021-01-26 12:42] LABS: Absolute Lymphocyte Count 2.14 X10^3/uL (0.83-4.51); Absolute Neutrophil Count 8.3 X10^3/uL (2.0-7.7); Basophil# 0.11 X10^3/uL; Basophil% 0.9 % (0-1); Eosinophil# 0.55 X10^3/uL; Eosinophils% 4.5 % (0-5); Hemoglobin 13.8 g/dL (13.0-16.5); Lymphocyte # 2.14 X10^3/ul (0.83-4.51); Lymphocyte % 17.7 % (19-41); Mean Corp Hgb Conc 31.4 g/dL (32-36); Mean Corpuscular Hgb 27.3 pg (27.0-32.0); Mean Corpuscular Volume 87.1 fL (80-94); Mean Platelet Vol. 9.9 fl (6.2-12.0); Monocyte% 7.4 % (0-10); NRBC Flagged by Analyzer 0 % (0-5); Neutrophil % 68.8 % (47-70); Platelet Count 318 K/mm3 (150-450); RBC Distribution Width CV 15.4 % (11.6-14.6); RBC Distribution Width SD 49.2 fl (35.1-43.9); Red Blood Count 5.05 M/mm3 (4.6-6.2); White Blood Count 12.1 K/mm3 (4.4-11.0)
[2021-01-26 13:29] LABS: Ferritin 26 ng/mL (26-388); Iron 38 ug/dL (65-175); Iron Binding Capacity,Total 330 ug/dL (250-450); PERCENT IRON SATURATION 11.5 % (15.0-55.0)
== END ==
PROVIDERS: PCP Family Medicine; Visit Provider Family Medicine
DX: D50.9 Iron deficiency anemia, unspecified (principal)
CPT/HCPCS: 36415; 82728; 83540; 83550; 85025

== ENCOUNTER → 2021-02-28 11:49 | Outpatient (CLI) | payer MEDICARE, SELFPAY ==
[2018-09-11 09:22] VITALS: BMI 27.8
--- NOTE | 2021-02-28 11:55 | RAD_ITS ---
STUDY: X-RAY CHEST REASON FOR EXAM: Male, 75 years old. Right middle lobe pneumonia and pleurisy by exam TECHNIQUE: PA and lateral views of the chest. COMPARISON: Comparison is made with prior study dated 06/02/2019. FINDINGS: Since prior study, there has been a progression of increased interstitial markings in both lungs worse in the lingular segment of the left upper lobe suggestive of progressive interstitial fibrosis. Decreased bronchovascular markings in the left upper lobe suggestive of possible emphysematous changes. There is no demonstrated pleural abnormality. Sternal cerclage wires and vascular clips are present from a prior sternotomy and coronary artery bypass graft procedure (CABG). Normal mediastinum and carlos. Normal visualized pulmonary arteries. There is atherosclerotic calcification of the aortic arch with tortuosity. There are degenerative changes of the visualized thoracic spine. Normal visualized ribs, clavicles, and shoulders. There is no demonstrated abnormality of the visualized soft tissue structures of the upper abdomen. RAD/Chest PA and Lateral IMPRESSION: Progressive increase in interstitial markings as described suggest progressive interstitial fibrosis. Electronically Signed: Joseph Sheriff MD at 15:28 EDT , Service support ,
== END ==
PROVIDERS: PCP Family Medicine; Referring Provider Family Medicine; Visit Provider Family Medicine
DX: R09.1 Pleurisy (principal); J18.9 Pneumonia, unspecified organism; Z20.828 Contact with and (suspected) exposure to other viral communicable diseases; D47.2 Monoclonal gammopathy
CPT/HCPCS: 71046; 87635; U0005; U0003

== ENCOUNTER → 2021-08-17 12:08 | Outpatient (CLI) | payer MEDICARE, SELFPAY ==
--- NOTE | 2021-08-17 12:10 | RAD_ITS ---
STUDY: X-RAY CHEST REASON FOR EXAM: Male, 76 years old. Fever and cough TECHNIQUE: PA and lateral views of the chest. COMPARISON: 02/28/2021 FINDINGS: There are interstitial fibrotic changes of the lungs. There is no demonstrated pleural abnormality. Sternal cerclage wires and vascular clips are present from a prior sternotomy and coronary artery bypass graft procedure (CABG). Normal mediastinum and carlos. Normal visualized pulmonary arteries. There is atherosclerotic calcification of the aortic arch with tortuosity. There are diffuse degenerative changes of the visualized thoracic spine. Normal visualized ribs, clavicles, and shoulders. There is no demonstrated abnormality of the visualized soft tissue structures of the upper abdomen. RAD/Chest PA and Lateral IMPRESSION: No interval change Electronically Signed: Regan Mcclendon MD at 15:03 EST , Service support ,
== END ==
PROVIDERS: PCP Family Medicine; Referring Provider Family Medicine; Visit Provider Family Medicine
DX: J84.10 Pulmonary fibrosis, unspecified (principal)
CPT/HCPCS: 71046

== ENCOUNTER → 2023-03-10 | Outpatient (CLI) | payer MEDICARE, SELFPAY ==
--- NOTE | 2023-03-10 12:50 | RAD_ITS ---
STUDY: X-RAY CHEST REASON FOR EXAM: Male, 77 years old. COPD TECHNIQUE: PA and lateral views of the chest. COMPARISON: Comparison is made with prior study dated November 19, 2021. FINDINGS: Since prior study, there has been progressive increased interstitial markings with areas of confluence in both lower lobes worse at the lung bases and on the left side. This is suggestive of progressive pulmonary fibrosis. There is no demonstrated pleural abnormality. Sternal cerclage wires and vascular clips are present from a prior sternotomy and coronary artery bypass graft procedure (CABG). Normal mediastinum and carlos. Normal visualized pulmonary arteries. There is atherosclerotic calcification of the aortic arch with tortuosity. There are diffuse degenerative changes of the visualized thoracic spine. Normal visualized ribs, clavicles, and shoulders. There is no demonstrated abnormality of the visualized soft tissue structures of the upper abdomen. RAD/Chest PA and Lateral IMPRESSION: Findings suggestive of progressive pulmonary fibrosis worse in the left lung. Electronically Signed: Joseph Sheriff MD at 13:27 EDT ,
[2023-03-10 13:54] LABS: Absolute Lymphocyte Count 1.06 X10^3/uL (0.83-4.51); Absolute Neutrophil Count 12.6 X10^3/uL (2.0-7.7); Basophil# 0.07 X10^3/uL; Basophil% 0.5 % (0-1); Eosinophil# 0.02 X10^3/uL; Eosinophils% 0.1 % (0-5); Hematocrit 47.4 % (40-54); Lymphocyte # 1.06 X10^3/ul (0.83-4.51); Lymphocyte % 7.3 % (19-41); Mean Corp Hgb Conc 31.6 g/dL (32-36); Mean Corpuscular Hgb 29.9 pg (27.0-32.0); Mean Corpuscular Volume 94.6 fL (80-94); Mean Platelet Vol. 10.1 fl (6.2-12.0); Monocyte# 0.62 X10^3/uL; Monocyte% 4.3 % (0-10); NRBC Flagged by Analyzer 0 % (0-5); Neutrophil # 12.57 X10^3/uL (2.7-7.7); Neutrophil % 86.7 % (47-70); Platelet Count 279 K/mm3 (150-450); RBC Distribution Width CV 14.1 % (11.6-14.6); RBC Distribution Width SD 48.6 fl (35.1-43.9); Red Blood Count 5.01 M/mm3 (4.6-6.2); White Blood Count 14.5 K/mm3 (4.4-11.0)
[2023-03-10 14:22] LABS: ALB/GLOB Ratio 0.7 RATIO (0.9-2.4); AST(SGOT) 29 U/L (15-37); Alanine Aminotransfer ALT/SGPT 29 U/L (16-61); Alkaline Phosphatase 85 U/L (45-117); Anion Gap 5 (5-15); BUN 16 mg/dL (7-18); BUN/Creat Ratio 19.7 RATIO (10-20); Chloride 104 mmol/L (98-107); Creatinine, Serum 0.81 mg/dL (0.70-1.30); EST Glomerular Filtration Rate 97 mL/min (>60); Est Glom Filt Rate - Afr Amer 117 mL/min (>60); Globulin 4.3 g/dL (2.2-4.2); Glucose 97 mg/dL (74-106); Potassium 4.4 mmol/L (3.5-5.1); Protein, Total 7.3 g/dL (6.4-8.2); Sodium Level 137 mmol/L (136-145)
== END | disposition home or self-care (01) ==
PROVIDERS: PCP Family Medicine; Referring Provider Nurse Practitioner Family; Visit Provider Nurse Practitioner Family
DX: J84.10 Pulmonary fibrosis, unspecified (principal); J44.1 Chronic obstructive pulmonary disease with (acute) exacerbation
CPT/HCPCS: 36415; 71046; 80053; 85025

== ENCOUNTER → 2024-01-20 | Outpatient (CLI) | payer MEDICARE, SELFPAY ==
[2024-01-20 16:11] LABS: Vitamin D,25 Hydroxy 69.2 ng/mL
[2024-01-20 16:14] LABS: Cholesterol 107 mg/dL (200); High Density Lipoprotein 48 mg/dL; Triglycerides 70 mg/dL; Very Low Density Lipoprotein 14 mg/dL (5-40)
== END | disposition home or self-care (01) ==
LOC: BFHLAB 13:29
PROVIDERS: PCP Family Medicine; Referring Provider Family Medicine; Visit Provider Family Medicine
DX: Z00.00 Encounter for general adult medical examination without abnormal findings (principal); E55.9 Vitamin D deficiency, unspecified; I25.10 Atherosclerotic heart disease of native coronary artery without angina pectoris
CPT/HCPCS: 36415; 80061; 82306

== ENCOUNTER → 2024-10-04 | Outpatient (CLI) | payer MEDICARE, SELFPAY ==
--- NOTE | 2024-10-04 14:56 | RAD_ITS ---
STUDY: X-RAY CHEST REASON FOR EXAM: Male, 79 years old. RULE OUT PNEUMONIA TECHNIQUE: PA and lateral views of the chest. COMPARISON: March 10, 2023 FINDINGS: Redemonstration of moderate bilateral interstitial fibrotic changes of the lungs and COPD/emphysematous changes. No definite new focus of consolidation is seen. There is no demonstrated pleural abnormality. Sternal cerclage wires and vascular clips are present from a prior sternotomy and coronary artery bypass graft procedure (CABG). Normal heart size. Normal mediastinum and carlos. Normal visualized pulmonary arteries. There is atherosclerotic calcification of the aortic arch with tortuosity. There are diffuse degenerative changes of the visualized thoracic spine. Normal visualized ribs, clavicles, and shoulders. There is no demonstrated abnormality of the visualized soft tissue structures of the upper abdomen. RAD/Chest PA and Lateral IMPRESSION: 1. Redemonstration of moderate bilateral interstitial fibrotic changes of the lungs and COPD/emphysematous changes. No definite new focus of consolidation is seen. There is no demonstrated pleural abnormality. Electronically Signed: Kwame Lozano MD at 16:02 EST ,
== END | disposition home or self-care (01) ==
LOC: MTRAD 14:55
PROVIDERS: PCP Family Medicine; Referring Provider Nurse Practitioner Family; Visit Provider Nurse Practitioner Family
DX: J84.10 Pulmonary fibrosis, unspecified (principal); R05.9 Cough, unspecified
CPT/HCPCS: 71046